=== PATIENT | female | born 1985 | race Caucasian/White ===

== ENCOUNTER 2016-11-14 22:33 | Emergency (ER) | payer OTHER ==
[~2016-11-14] VITALS: Ht 162.6 cm; Wt 84.6 kg
[2016-11-14 22:35] VITALS: TEMP 36.7; Ht 162.6 cm; Wt 84.6 kg
[2016-11-14] MEDS ORDERED: KETOROLAC TROMETHAMINE 30 MG/ML VIAL IV STA (23:02)
[2016-11-14] MEDS ORDERED: ONDANSETRON INJ 2 MG/ML 2 ML VIAL IV STA (23:02)
[2016-11-14] MEDS ORDERED: SODIUM CHLORIDE 0.9% 1000ML 500 ML IV STA (23:02)
[2016-11-14 23:13] LABS: BASO % 0.2 %; BASO ABS # 0.03 K/uL (0-0.2); COMPLETE YES; EOS % 2.3 %; HEMATOCRIT 37.6 % (37-47); IG% 0.2 %; LYMPH % 28.8 %; LYMPH ABS # 3.66 K/uL (1.2-3.4); MEAN CELL VOLUME 94.7 fL (80-100); MEAN CORPUSCULAR HGB CONC 32.7 g/dl (32-36); MEAN PLATELET VOLUME 9.9 fL (7.4-10.4); NEUT % 61.5 %; PLATELET COUNT 391 K/uL (130-400); RED BLOOD COUNT 3.97 M/uL (4.2-5.4); WHITE BLOOD COUNT 12.71 K/uL (4.8-10.8)
[2016-11-14] MEDS: MoRPHine SULFATE 4 MG/ML 1 ML CARP\\VIAL IV PRN (23:19)
[2016-11-14 23:31] LABS: BUN/CREATININE RATIO 14.8 (10-20); CALCIUM 9.2 mg/dl (8.5-10.1); CREATININE 0.71 mg/dl (0.60-1.20); POTASSIUM 3.9 mmol/L (3.5-5.1)
[2016-11-14 23:33] LABS: URINE APPEARANCE CLEAR (CLEAR); URINE BILIRUBIN NEG (NEG); URINE COLOR YELLOW; URINE NITRITE NEG (NEG); URINE PH 5.5 (4.5-7.5); URINE SPECIFIC GRAVITY 1.015 (1.000-1.030); UROBILINOGEN NEG (NEG); ZZUR CULT IF INDIC CLEAN CATCH NO
[2016-11-14 23:34] LABS: ALB/GLOB RATIO 0.9 (0.9-2); MANUAL MICROSCOPIC REQUIRED? NO; REVIEW REQ? NO
[2016-11-14 23:38] LABS: PREG INTERNAL NEGATIVE QC NEG CLEAR BACKGROUND; PREG INTERNAL POSITIVE QC POS CONTROL LINE
--- NOTE | 2016-11-14 23:41 | EMERGENCY ROOM VISIT NOTE ---
History Report prepared by Yane: Angel Quiroga Under the Supervision of: Dr. Graham Abrams M.D. First contact with patient: 23:00 Chief Complaint: ABDOMINAL PAIN Stated Complaint: LOWER R ABD PAIN, VOMITING Nursing Triage Summary: sharp pain right lower right abd. cramping the last couple days pain became steady today History of Present Illness The patient is a 31 year old female who presents to the Emergency Room with complaints of constant sharp right lower quadrant abdominal pain that began a couple of days ago. She rates her pain a 7/10 with intermittent pinching pain bringing it up to a 9/10. She has a past medical history of ovarian cysts and kidney stones. Over this time, she has been feeling very diaphoretic, fatigued, nauseated, and without much of an appetite. She has been experiencing episodes of vomiting as well. She notes that she is having uncharacteristic vaginal spotting that she describes as brown with red spots. Also, she has some mild flank pain some some burning with urination. She describes her flank pain as what an infection would feel like. She denies any fevers, diarrhea, and hematuria. She has been using a heating bad and Ibuprofen for pain management, with only the heating pad giving her some relief. She denies any fevers or diarrhea. She has had two kidney stone removals in the last three months. She states her symptoms feel very similar to those of an ovarian cyst or a ureteral stone. She notes that she just finished the first week of her control pack , so the vaginal bleeding is very abnormal. She did take a test this morning that was negative. She has had many ureteroscopies, a tonsillectomy, a laparoscopic small bowel obstruction procedure, and a rotator cuff injury. Source of History: patient Onset: a couple of days ago Position: abdomen (RLQ) Symptom Intensity: 7/10 Quality: sharp Timing: constant Modifying Factors (Relieving): heat Associated Symptoms: + diaphoresis, + nausea, + vomiting, + back pain, + urinary symptoms (Burning with urination, without bleeding), + fatigue, No fevers, No diarrhea Review of Systems See HPI for pertinent positives & negatives. A total of 10 systems reviewed and were otherwise negative. Past Medical & Surgical Medical Problems: (1) History of kidney stones (2) History of ovarian cyst Surgical Problems: (1) Hx of tonsillectomy (2) SBO (small bowel obstruction) Family History Patient reports no known family medical history. Social History Smoking Status: Former Smoker Smokeless Tobacco Use: No Drug Use: none Marital Status: single Housing Status: lives alone Occupation Status: student Current/Historical Medications Scheduled Clonazepam (Klonopin), 1 MG PO TID Duloxetine HCl (Cymbalta), 30 MG PO QPM Lamotrigine (Lamictal), 100 MG PO QPM Norethindrone & Eth Estradiol (Necon ), 1 TAB PO DAILY Pramipexole Dihydrochloride (Mirapex), 0.5 MG PO QPM Scheduled PRN Clonidine Hcl (Catapres), 0.2 MG PO DAILY PRN for PRN Allergies Coded Allergies: Metoclopramide (Verified Allergy, Intermediate, panic attacks, 11/14/16) Prochlorperazine (Verified Allergy, Intermediate, panic attack, 11/14/16) Sulfa Antibiotics (Verified Allergy, Intermediate, vomiting, 11/14/16) Physical Exam Vital Signs Date Time Temp Pulse Resp B/P (MAP) Pulse Ox O2 Delivery O2 Flow Rate FiO2 11/15/16 01:15 73 18 123/75 97 Room Air 11/14/16 22:35 36.7 79 18 139/84 98 Room Air Physical Exam GENERAL: Patient is in no acute distress. HEENT: No acute trauma, normocephalic atraumatic, mucous membranes moist, no nasal congestion, no scleral icterus. NECK: No stridor, no adenopathy, no meningismus, trachea is midline. LUNGS: Clear to auscultation bilaterally, no wheeze, no rhonchi, breath sounds equal. HEART: Without murmurs gallops or rubs, regular rate and rhythm. ABDOMEN: Soft, tender in the RLQ and the right pelvis, bowel sounds positive, no hernias, no peritonitis. BACK: Right flank discomfort with percussion. EXTREMITIES: No cyanosis or edema, full range of motion of all the joints without pain or difficulty, no signs for acute trauma. NEUROLOGIC: Oriented x 3, no acute motor or sensory deficits, no focal weakness. SKIN: No rash, no jaundice, no diaphoresis. Medical Decision & Procedures ER Provider Diagnostic Interpretation: Radiology results as stated below per my review and radiologist interpretation: US RENAL: No hydronephrosis. 9 mm cyst right kidney. Evaluation of bladder limited by underdistention and ureteral jets are not visualized. Radiologist: Tony Ramos MD US PELVIC/ENDOVAG: The uterus is normal in size. The endometrium is normal in thickness. Small amount of endocervical fluid. 3.1 x 2.6 x 2.0 cm right adnexal cyst, likely right ovarian cyst with small amount of right ovarian tissue peripherally which demonstrates flow. Left ovary not identified. No free fluid in the pelvis. Radiologist: Tony Ramos MD Laboratory Results 11/14/16 22:50 Red Blood Count 3.97, Mean Corpuscular Volume 94.7, Mean Corpuscular Hemoglobin 31.0, Mean Corpuscular Hemoglobin Concent 32.7, Mean Platelet Volume 9.9, Neutrophils (%) (Auto) 61.5, Lymphocytes (%) (Auto) 28.8, Monocytes (%) (Auto) 7.0, Eosinophils (%) (Auto) 2.3, Basophils (%) (Auto) 0.2, Neutrophils # (Auto) 7.81, Lymphocytes # (Auto) 3.66, Monocytes # (Auto) 0.89, Eosinophils # (Auto) 0.29, Basophils # (Auto) 0.03 11/14/16 22:50 Test 11/14/16 22:50 White Blood Count 12.71 K/uL (4.8-10.8) Red Blood Count 3.97 M/uL (4.2-5.4) Hemoglobin 12.3 g/dL (12.0-16.0) Hematocrit 37.6 % (37-47) Mean Corpuscular Volume 94.7 fL (80-100) Mean Corpuscular Hemoglobin 31.0 pg (25-34) Mean Corpuscular Hemoglobin Concent 32.7 g/dl (32-36) Platelet Count 391 K/uL (130-400) Mean Platelet Volume 9.9 fL (7.4-10.4) Neutrophils (%) (Auto) 61.5 % Lymphocytes (%) (Auto) 28.8 % Monocytes (%) (Auto) 7.0 % Eosinophils (%) (Auto) 2.3 % Basophils (%) (Auto) 0.2 % Neutrophils # (Auto) 7.81 K/uL (1.4-6.5) Lymphocytes # (Auto) 3.66 K/uL (1.2-3.4) Monocytes # (Auto) 0.89 K/uL (0.11-0.59) Eosinophils # (Auto) 0.29 K/uL (0-0.5) Basophils # (Auto) 0.03 K/uL (0-0.2) RDW Standard Deviation 48.0 fL (36.4-46.3) RDW Coefficient of Variation 13.8 % (11.5-14.5) Immature Granulocyte % (Auto) 0.2 % Immature Granulocyte # (Auto) 0.03 K/uL (0.00-0.02) Urine Color YELLOW Urine Appearance CLEAR (CLEAR) Urine pH 5.5 (4.5-7.5) Urine Specific [place] 1.015 (1.000-1.030) Urine Protein NEG (NEG) Urine Glucose (UA) NEG (NEG) Urine Ketones NEG (NEG) Urine Occult Blood NEG (NEG) Urine Nitrite NEG (NEG) Urine Bilirubin NEG (NEG) Urine Urobilinogen NEG (NEG) Urine Leukocyte Esterase NEG (NEG) Anion Gap 10.0 mmol/L (3-11) Est Creatinine Clear Calc Drug Dose 120.9 ml/min Estimated GFR () 131.5 Estimated GFR (Non- 113.5 BUN/Creatinine Ratio 14.8 (10-20) Calcium Level 9.2 mg/dl (8.5-10.1) Total Bilirubin 0.3 mg/dl (0.2-1) Aspartate Amino Transf (AST/SGOT) 12 U/L (15-37) Alanine Aminotransferase (ALT/SGPT) 26 U/L (12-78) Alkaline Phosphatase 88 U/L (45-117) Total Protein 7.7 gm/dl (6.4-8.2) Albumin 3.7 gm/dl (3.4-5.0) Globulin 4.0 gm/dl (2.5-4.0) Albumin/Globulin Ratio 0.9 (0.9-2) Lipase 189 U/L (73-393) Human Chorionic Gonadotropin, Qual NEG (NEG) Laboratory results reviewed by me. Medications Administered Medications (Trade) Dose Ordered Sig/Radha Route Start Time Stop Time Status Last Admin Dose Admin Sodium Chloride 500 ml @ 999 mls/hr Q31M STAT IV 11/14/16 23:02 11/14/16 23:32 DC 11/14/16 23:19 999 MLS/HR Ondansetron HCl (Zofran Inj) 4 mg NOW STAT IV 11/14/16 23:02 11/14/16 23:07 DC 11/14/16 23:19 4 MG Morphine Sulfate (MoRPHine SULFATE INJ) 4 mg Q30M PRN IV 11/14/16 23:15 11/28/16 23:14 11/15/16 01:14 4 MG Ketorolac Tromethamine (Toradol Inj) 30 mg NOW STAT IV 11/14/16 23:02 11/14/16 23:07 DC 11/14/16 23:19 30 MG Diphenhydramine HCl (Benadryl Inj) 50 mg STK-MED ONCE .ROUTE 11/15/16 01:31 11/15/16 01:32 DC 11/15/16 01:32 25 MG Hydromorphone HCl (Dilaudid Inj) 0.5 mg NOW STAT IV 11/15/16 02:18 11/15/16 02:19 DC 11/15/16 02:24 0.5 MG Acetaminophen (Tylenol Tab) 1,000 mg NOW STAT PO 11/15/16 03:01 11/15/16 03:03 DC 11/15/16 03:14 1,000 MG Hydromorphone HCl (Dilaudid Inj) 0.5 mg STK-MED ONCE .ROUTE 11/15/16 03:11 11/15/16 03:12 DC 11/15/16 03:16 0.5 MG ED Course 2300: The patient was evaluated in room A2. A complete history and physical exam was performed. 230: Ordered Toradol Inj 30 mg IV, Zofran Inj 4 mg IV, Sodium Chloride 500 ml @ 999 mls/hr IV 2315: Ordered Morphine Sulfate 4 mg IV 0131: Ordered Benadryl Inj 50 mg .ROUTE 0218: I updated the patient at this time. After reevaluation that patient would like to try something new for pain. 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 Ordered Dilaudid Inj 0.5 mg IV 0301: Ordered Tylenol Tab 1000 mg PO, Dilaudid Inj 0.5 mg IV 0311: Ordered Dilaudid Inj 0.5 mg .ROUTE 0349: Her pain is down to a 5/10. She would like to go home. 0403: Reevaluated the patient. Discussed results and discharge instructions: She verbalized understanding and agreement. The patient is ready for discharge. Medical Decision Differential diagnosis includes but is not limited to ovarian cyst, , ectopic , ureteral stone, UTI, appendicitis, small bowel obstruction, diverticulitis, hernia, and musculoskeletal pain. There is a mild leukocytosis at 12,000, this could be consistent with infection or just her pain and vomiting. No concerning anemia. No significant electrolyte abnormality, kidney failure or hepatitis. There is no pancreatitis. Urinalysis does not show hematuria or infection. testing is negative. Renal ultrasound does not show hydronephrosis. Pelvic ultrasound shows a right-sided ovarian cyst, no signs of ovarian torsion. The patient received IV Toradol, IV saline, IV Zofran and IV morphine. She was given IV Dilaudid for continued pain. She received IV Benadryl for itching. She was given a dose of oral Tylenol. The patient's pain is very likely from her right ovarian cyst. She has had cysts before and has felt similar pain. She states that she has noted some vaginal spotting over the last few days which would fit with the ovarian cyst diagnosis. I discussed the possibility of appendicitis with the patient. She has had numerous CT imaging studies in the past, I would like to avoid a repeat CT if possible. I do think we have a cause found by workup that explains her pain. She was encouraged to return for worsening pain, lack of improvement or fever. She was discharged home. Outpatient OB follow-up was suggested. Medication Reconcilliation Current Medication List: was personally reviewed by me Blood Pressure Screening Patient's blood pressure: Elevated blood pressure Blood pressure disposition: Elevated BP felt to be situational Impression Primary Impression: Right lower quadrant abdominal pain Additional Impression: Ovarian cyst Scribe Attestation The scribe's documentation has been prepared under my direction and personally reviewed by me in its entirety. I confirm that the note above accurately reflects all work, treatment, procedures, and medical decision making performed by me. Departure Information Dispostion Home / Self-Care Referrals No Doctor, Assigned (PCP) Viry Cantu M.D. [facility] Forms Call Back Authorization, HOME CARE DOCUMENTATION FORM, IMPORTANT VISIT INFORMATION Patient Instructions My [facility] Additional Instructions motrin/tylenol for pain rest heat to the area may help return for worsening pain, lack of improvement, vomiting or fever as appendicitis is still a possibility call and set up cereal miller appt for the right ovarian cyst Problem Qualifiers
[2016-11-15] MEDS: MoRPHine SULFATE 4 MG/ML 1 ML CARP\\VIAL IV PRN (01:14)
[2016-11-15] MEDS ORDERED: DiphenhydrAMINE HCL 50 MG/ML VIAL ONE (01:31)
[2016-11-15] MEDS ORDERED: HYDROmorphone INJ 2 MG/ML SYR/VIAL IV STA ×2 (02:18→03:01)
[2016-11-15] MEDS ORDERED: ACETAMINOPHEN 500 MG TAB PO STA (03:01)
[2016-11-15] MEDS ORDERED: HYDROmorphone INJ 0.5 MG/0.5 ML SYR ONE (03:11)
[2016-11-15 04:15] VITALS: BP 131/72; PULSE 64; O2SAT 97
--- NOTE | 2016-11-15 07:14 | DIAGNOSTIC IMAGING REPORT ---
PELVIC COMPLETE NON OB CLINICAL HISTORY: ABDOMINAL PAIN/N/V/D PAIN. NAUSEA. COMPARISON STUDY: None FINDINGS: The uterus measured 7.1 cm. The endometrial stripe measured 4 mm. The right ovary measured 3.5 cm. Normal vascular flow. 3 cm right ovarian cyst.. The left ovary measured not identified due to overlying bowel content. There is no ultrasonographic evidence of ovarian torsion. It should be noted that ovarian torsion can be present with normal Doppler ultrasonographic findings. There was no evidence of pathologic free pelvic fluid. IMPRESSION: 3 cm right ovarian cyst. Otherwise negative study. Poor visibility left ovary due to overlying bowel content The above report was generated using voice recognition software. It may contain grammatical, syntax or spelling errors. Electronically signed by: Santana Mccoy M.D. 11/15/2016 7:12 AM Dictated Date/Time: 11/15/2016 7:11 AM
--- NOTE | 2016-11-15 07:33 | DIAGNOSTIC IMAGING REPORT ---
RENAL ULTRASOUND HISTORY: Right-sided abdominal pain. COMPARISON: None. FINDINGS: Right kidney: 10.9 cm. No hydronephrosis. Normal corticomedullary differentiation and cortical thickness. A 9 mm lower pole parapelvic cyst. Left kidney: 11.9 cm. No hydronephrosis. Normal corticomedullary differentiation and cortical thickness. Bladder: No bladder wall thickening. The bilateral ureteral jets were not identified. IMPRESSION: No hydronephrosis. Electronically signed by: Denver Robles M.D. 11/15/2016 7:32 AM Dictated Date/Time: 11/15/2016 7:31 AM
[2016-11-15] MEDS ORDERED: DICY20TA35 PO (15:56)
[2016-12-10] MEDS ORDERED: PRED10TA PO (10:56)
[2016-12-10] MEDS ORDERED: DULO60CA44 PO (10:56)
[2016-12-10] MEDS ORDERED: TRMCR180 EXT (10:56)
[2016-12-10] MEDS ORDERED: RXC5 PO (10:56)
[2016-12-10] MEDS ORDERED: BND25X PO (10:56)
[2016-12-10] MEDS ORDERED: MRLP17 PO (10:56)
[2016-12-16] MEDS ORDERED: RIZA10TA18 PO (20:05)
[2016-12-27] MEDS ORDERED: AMOX875T PO (06:51)
== END 2016-11-15 04:00 | disposition home or self-care (01) ==
LOC: C.EDB 22:35 → C.EDA 11-15 04:00
DX: R10.31 Right lower quadrant pain (principal); N83.201 Unspecified ovarian cyst, right side; Z87.891 Personal history of nicotine dependence

== ENCOUNTER 2016-11-15 12:24 | Emergency (ER) | payer OTHER ==
[~2016-11-15] VITALS: Ht 162.6 cm; Wt 84.6 kg
[2016-11-15 12:28] VITALS: TEMP 37.1; Ht 162.6 cm; Wt 84.6 kg
[2016-11-15] MEDS ORDERED: HYDROmorphone INJ 1 MG/ML SYR IV STA ×2 (13:05→14:48)
[2016-11-15] MEDS ORDERED: ONDANSETRON INJ 2 MG/ML 2 ML VIAL IV STA (13:05)
[2016-11-15] MEDS ORDERED: KETOROLAC TROMETHAMINE 30 MG/ML VIAL IV STA (13:05)
[2016-11-15] MEDS ORDERED: SODIUM CHLORIDE 0.9% 1000ML 1,000 ML IV STA (13:05)
--- NOTE | 2016-11-15 13:30 | EMERGENCY ROOM VISIT NOTE ---
History Report prepared by Yane: Candy Casas Under the Supervision of: Dr. Efrain Martínez M.D. First contact with patient: 12:56 Chief Complaint: ABDOMINAL PAIN Stated Complaint: INCREASED ABD PAIN, VOMITING-RETURN. FROM LAST PM Nursing Triage Summary: pt states she was seen in ER for ovarian cyst last night. pt was told to come back to ER if pain increased or if patient became nauseated. pt c/o increased pain to right lower abdomen, nausea and vomiting this AM. History of Present Illness The patient is a 31 year old female who presents to the Emergency Room with complaints of right lower abdominal pain. The patient stated that she started having "cramping" and light spotting four days ago. The pain has since intensified but the spotting has subsided. She states that her pain was initially intermittent, but became constant yesterday. The patient also notes that as the pain has worsened it also has started to radiate to her back. She was in the ED yesterday for similar complaints. The patient is also experiencing urinary symptoms, nausea and vomiting and has taken ibuprofen with no relief. She has a history of chronic kidney stones and has had a total of nine kidney stone removal nine surgeries. She also has had a small bowel obstruction 11 months ago from an unknown cause. Source of History: patient Onset: Four days ago Position: abdomen (RLQ) Quality: cramping Timing: constant Associated Symptoms: + nausea, + vomiting, + urinary symptoms Review of Systems See HPI for pertinent positives & negatives. A total of 10 systems reviewed and were otherwise negative. Past Medical & Surgical Medical Problems: (1) History of kidney stones (2) History of ovarian cyst Surgical Problems: (1) Hx of tonsillectomy (2) SBO (small bowel obstruction) Family History Patient reports no known family medical history. No pertinent family history. Social History Smoking Status: Former Smoker Drug Use: none Marital Status: single Housing Status: lives alone Occupation Status: student Current/Historical Medications Scheduled Clonazepam (Klonopin), 1 MG PO TID Dicyclomine Hcl (Bentyl), 20 MG PO QID Doxycycline Monohydrate (Monodox), 100 MG PO BID Duloxetine HCl (Cymbalta), 30 MG PO QPM Lamotrigine (Lamictal), 100 MG PO QPM Norethindrone & Eth Estradiol (Necon ), 1 TAB PO DAILY Pramipexole Dihydrochloride (Mirapex), 0.5 MG PO QPM Scheduled PRN Clonidine Hcl (Catapres), 0.2 MG PO DAILY PRN for PRN Oxycodone/Acetaminophen 5MG/325MG (Percocet 5MG/325MG), 1 TAB PO Q4H PRN for Pain Allergies Coded Allergies: Metoclopramide (Verified Allergy, Intermediate, panic attacks, 11/16/16) Prochlorperazine (Verified Allergy, Intermediate, panic attack, 11/16/16) Sulfa Antibiotics (Verified Allergy, Intermediate, vomiting, 11/16/16) Physical Exam Vital Signs Date Time Temp Pulse Resp B/P (MAP) Pulse Ox O2 Delivery O2 Flow Rate FiO2 11/15/16 16:01 66 18 133/93 96 Room Air 11/15/16 14:54 63 18 133/77 98 Room Air 11/15/16 14:32 73 16 130/82 95 Room Air 11/15/16 14:03 104 11/15/16 13:59 76 20 132/76 97 Room Air 11/15/16 12:28 37.1 86 18 131/95 99 Room Air Physical Exam GENERAL: Patient is a healthy-appearing well-nourished female HEAD: Normocephalic atraumatic EYES: Ocular movements intact pupils equal and react to light OROPHARYNX mucous membranes are moist no exudates present no erythema or edema present NECK: Supple no nuchal rigidity CHEST: Good equal expansion LUNGS: Clear and equal to auscultation CARDIAC: Normal S1 and S2 ABDOMEN: Soft, no guarding. Tender to right lower quadrant. BACK: No CVA tenderness EXTREMITIES: No pain upon palpation normal muscle strength in all groups no clubbing cyanosis or edema NEURO: Patient is following commands and answering questions appropriately. Alert and oriented x3 Cranial Nerves 2-12 grossly intact Medical Decision & Procedures ER Provider Diagnostic Interpretation: CT/US results as stated below per my review and radiologist interpretation: ABD/PELVIS IV CONTRAST ONLY CT DOSE: 558.33 mGy.cm HISTORY: Flank pain Pt c/o RLQ abd pain, known ovarian cyst, kidney stones, [place] TECHNIQUE: Multiaxial CT images of the abdomen and pelvis were performed following the use of intravenous contrast. A dose lowering technique was utilized adhering to the principles of ALARA. COMPARISON STUDY: Pelvic and renal ultrasound same date FINDINGS: The lung bases are clear. The liver, spleen, gallbladder, pancreas, kidneys, and adrenal glands are within normal limits. No bowel wall thickening or obstruction. The pelvic organs are unremarkable. No suspicious lytic or blastic osseous lesions. 3 cm right ovarian cyst. The appendix is normal. Nonobstructive bowel pattern. IMPRESSION: 1. 3 cm right ovarian cyst. 2. Otherwise negative abdomen and pelvis. 3. Normal appendix. The above report was generated using voice recognition software. It may contain grammatical, syntax or spelling errors. Electronically signed by: Santana Mccoy M.D. PELVIC COMPLETE NON OB FINDINGS: The uterus measured 7.2 cm. The endometrial stripe measured 4 mm. The right ovary measured 3.1 cm maximum dimension. Normal vascular flow. 2.9 cm cyst.. The left ovary measured not well seen. There is no ultrasonographic evidence of ovarian torsion. It should be noted that ovarian torsion can be present with normal Doppler ultrasonographic findings. There was no evidence of pathologic free pelvic fluid. IMPRESSION: 1. No change compared to the prior study of the same date. 2. 2.9 cm right ovarian cyst. 3. Normal vascular flow to the right ovary. 4. Poor visibility of the left ovary due to overlying bowel content The above report was generated using voice recognition software. It may contain grammatical, syntax or spelling errors. Electronically signed by: Santana Mccoy M.D. Laboratory Results 11/15/16 12:55 Red Blood Count 3.81, Mean Corpuscular Volume 95.5, Mean Corpuscular Hemoglobin 31.5, Mean Corpuscular Hemoglobin Concent 33.0, Mean Platelet Volume 10.0, Neutrophils (%) (Auto) 55.9, Lymphocytes (%) (Auto) 33.8, Monocytes (%) (Auto) 7.5, Eosinophils (%) (Auto) 2.5, Basophils (%) (Auto) 0.2, Neutrophils # (Auto) 5.10, Lymphocytes # (Auto) 3.08, Monocytes # (Auto) 0.68, Eosinophils # (Auto) 0.23, Basophils # (Auto) 0.02 11/15/16 12:55 Test 11/15/16 12:55 11/15/16 13:20 White Blood Count 9.12 K/uL (4.8-10.8) Red Blood Count 3.81 M/uL (4.2-5.4) Hemoglobin 12.0 g/dL (12.0-16.0) Hematocrit 36.4 % (37-47) Mean Corpuscular Volume 95.5 fL (80-100) Mean Corpuscular Hemoglobin 31.5 pg (25-34) Mean Corpuscular Hemoglobin Concent 33.0 g/dl (32-36) Platelet Count 346 K/uL (130-400) Mean Platelet Volume 10.0 fL (7.4-10.4) Neutrophils (%) (Auto) 55.9 % Lymphocytes (%) (Auto) 33.8 % Monocytes (%) (Auto) 7.5 % Eosinophils (%) (Auto) 2.5 % Basophils (%) (Auto) 0.2 % Neutrophils # (Auto) 5.10 K/uL (1.4-6.5) Lymphocytes # (Auto) 3.08 K/uL (1.2-3.4) Monocytes # (Auto) 0.68 K/uL (0.11-0.59) Eosinophils # (Auto) 0.23 K/uL (0-0.5) Basophils # (Auto) 0.02 K/uL (0-0.2) RDW Standard Deviation 47.4 fL (36.4-46.3) RDW Coefficient of Variation 13.7 % (11.5-14.5) Immature Granulocyte % (Auto) 0.1 % Immature Granulocyte # (Auto) 0.01 K/uL (0.00-0.02) Anion Gap 7.0 mmol/L (3-11) Est Creatinine Clear Calc Drug Dose 105.9 ml/min Estimated GFR () 112.2 Estimated GFR (Non- 96.8 BUN/Creatinine Ratio 14.1 (10-20) Calcium Level 8.7 mg/dl (8.5-10.1) Total Bilirubin 0.2 mg/dl (0.2-1) Direct Bilirubin < 0.1 mg/dl (0-0.2) Aspartate Amino Transf (AST/SGOT) 19 U/L (15-37) Alanine Aminotransferase (ALT/SGPT) 26 U/L (12-78) Alkaline Phosphatase 80 U/L (45-117) Total Protein 7.3 gm/dl (6.4-8.2) Albumin 3.5 gm/dl (3.4-5.0) Lipase 176 U/L (73-393) Urine Color YELLOW Urine Appearance CLEAR (CLEAR) Urine pH 6.5 (4.5-7.5) Urine Specific [place] 1.026 (1.000-1.030) Urine Protein NEG (NEG) Urine Glucose (UA) NEG (NEG) Urine Ketones NEG (NEG) Urine Occult Blood NEG (NEG) Urine Nitrite NEG (NEG) Urine Bilirubin NEG (NEG) Urine Urobilinogen NEG (NEG) Urine Leukocyte Esterase TRACE (NEG) Urine WBC (Auto) 5-10 /hpf (0-5) Urine RBC (Auto) 0-4 /hpf (0-4) Urine Hyaline Casts (Auto) 1-5 /lpf (0-5) Urine Epithelial Cells (Auto) >30 /lpf (0-5) Urine Bacteria (Auto) NEG (NEG) Urine Test NEG (NEG) Labs reviewed by ED physician. Medications Administered Medications (Trade) Dose Ordered Sig/Radha Route Start Time Stop Time Status Last Admin Dose Admin Ketorolac Tromethamine (Toradol Inj) 30 mg NOW STAT IV 11/15/16 13:05 11/15/16 13:08 DC 11/15/16 13:28 30 MG Hydromorphone HCl (Dilaudid Inj) 1 mg NOW STAT IV 11/15/16 13:05 11/15/16 13:08 DC 11/15/16 13:27 1 MG Ondansetron HCl (Zofran Inj) 4 mg NOW STAT IV 11/15/16 13:05 11/15/16 13:08 DC 11/15/16 13:27 4 MG Sodium Chloride 1,000 ml @ 999 mls/hr Q1H1M STAT IV 11/15/16 13:05 11/15/16 14:05 DC 11/15/16 13:05 999 MLS/HR Diphenhydramine HCl (Benadryl Inj) 50 mg NOW STAT IV 11/15/16 13:51 11/15/16 13:52 DC 11/15/16 13:59 50 MG Hydromorphone HCl (Dilaudid Inj) 1 mg NOW STAT IV 11/15/16 14:48 11/15/16 14:49 DC 11/15/16 14:55 1 MG Magnesium Citrate (Citrate Of Magnesia Soln) 296 ml NOW STAT PO 11/15/16 15:53 11/15/16 15:54 DC 11/15/16 16:11 296 ML ED Course 1300: Past medical records reviewed. The patient was evaluated in room A9. A complete history and physical examination was performed. 1305: Sodium Chloride 1000 ml @ 999 mls/hr. Zofran Inj 4 mg IV. Dilaudid Inj 1mg IV. Toradol Inj 30 mg IV. 1520: Upon reexamination the patient is resting comfortably. I discussed results and treatment plan with the patient. She verbalizes agreement and understanding. The patient is ready for discharge. Medical Decision Differential diagnosis: Etiologies such as appendicitis, diverticulitis, PUD, biliary pathology, UTI, pancreatitis, obstruction, mesenteric ischemia, aortic pathology, infections, inflammatory bowel disease, renal colic, as well as others were entertained. This is a 31-year-old female who presents emergency department complaining of right lower quadrant abdominal pain. The patient was seen yesterday in the emergency department and had an ultrasound performed therefore a CAT scan of the abdomen and pelvis was performed here and. An IV was established, the patient given Toradol, Dilaudid, Reglan. Repeat exam revealed no improvement the patient's symptoms. I will note that serial abdominal examinations were performed on the patient in the emergency department and the patient really did not exhibit abdominal tenderness or surgical abdomen. In addition the patient exhibited drug-seeking behavior in emergency department therefore a PD MP search was initiated. The patient was found to have no records of [place] however a multi-state search turned up that the patient has had multiple narcotic prescriptions from multiple providers in [place] over the last month. As the patient is new to this area I'm uncomfortable with prescribing the patient any further narcotics. She was given a prescription for Bentyl. [place] Drug Monitoring Program Search Results: patient reviewed within database, see additional documentation Drug Monitoring Findings: Multiple prescriptions in [place]. Tylenol with Codeine on November 01. 90 Klonozepam on October 25. Tramadol on October 18. Impression Primary Impression: Abdominal pain Scribe Attestation The scribe's documentation has been prepared under my direction and personally reviewed by me in its entirety. I confirm that the note above accurately reflects all work, treatment, procedures, and medical decision making performed by me. Departure Information Dispostion Home / Self-Care Prescriptions Dicyclomine Hcl (BENTYL) 20 Mg Tab 20 MG PO QID for 10 Days, #40 TAB Prov: Efrain Martínez MD 11/15/16 Referrals No Doctor, Assigned (PCP) Forms Call Back Authorization, HOME CARE DOCUMENTATION FORM, IMPORTANT VISIT INFORMATION Patient Instructions Abdominal Pain - [facility], Cysts Ovarian, ED Constipation, My [facility] Additional Instructions Follow up with DR Gómez's office Take 1/2 bottle of Mag Citrate Repeat second half in six hours Clear liquid diet next 48 hours You received narcotic or benzodiazepene medication while in the emergency room today. Do not drive, operate heavy machinery, or drink alcohol under the influence of this medication. Take 600 mg Ibuprofen every 6 hours Take Bentyl for breakthrough pain You have been examined and treated today on an emergency basis only. This is not a substitute for, or an effort to provide, complete comprehensive medical care. It is impossible to recognize and treat all injuries or illnesses in a single emergency department visit. It is therefore important that you follow up closely with your PCP. Call as soon as possible for an appointment. Thank you for your time and consideration. I look forward to speaking with you again soon. Please don't hesitate to call us if you have any questions. Problem Qualifiers Primary Impression: Abdominal pain Abdominal location: right lower quadrant Qualified Codes: R10.31 - Right lower quadrant pain
[2016-11-15 13:31] LABS: BASO % 0.2 %; BASO ABS # 0.02 K/uL (0-0.2); COMPLETE YES; EOS % 2.5 %; HEMATOCRIT 36.4 % (37-47); IG% 0.1 %; LYMPH % 33.8 %; LYMPH ABS # 3.08 K/uL (1.2-3.4); MEAN CELL VOLUME 95.5 fL (80-100); MEAN CORPUSCULAR HEMOGLOBIN 31.5 pg (25-34); MONO % 7.5 %; NEUT % 55.9 %; PLATELET COUNT 346 K/uL (130-400); RED BLOOD COUNT 3.81 M/uL (4.2-5.4); WHITE BLOOD COUNT 9.12 K/uL (4.8-10.8)
[2016-11-15 13:51] LABS: URINE APPEARANCE CLEAR (CLEAR); URINE BILIRUBIN NEG (NEG); URINE COLOR YELLOW; URINE EPITHELIAL CELL AUTO >30 /lpf (0-5); URINE NITRITE NEG (NEG); URINE PH 6.5 (4.5-7.5); URINE SPECIFIC GRAVITY 1.026 (1.000-1.030); UROBILINOGEN NEG (NEG)
[2016-11-15] MEDS ORDERED: DiphenhydrAMINE HCL 50 MG/ML VIAL IV STA (13:51)
[2016-11-15 13:54] LABS: ALKALINE PHOSPHATASE 80 U/L (45-117); ALT/SGPT 26 U/L (12-78); AST/SGOT 19 U/L (15-37); BLOOD UREA NITROGEN 11 mg/dl (7-18); BUN/CREATININE RATIO 14.1 (10-20); CALCIUM 8.7 mg/dl (8.5-10.1); CARBON DIOXIDE 25 mmol/L (21-32); CHLORIDE 107 mmol/L (98-107); CREATININE 0.81 mg/dl (0.60-1.20); GLUCOSE 85 mg/dl (70-99); SODIUM 139 mmol/L (136-145)
[2016-11-15 13:56] LABS: MANUAL MICROSCOPIC REQUIRED? NO; REVIEW REQ? NO
[2016-11-15] MEDS ORDERED: OPTIRAY 320 IV PRN (14:15)
--- NOTE | 2016-11-15 14:35 | DIAGNOSTIC IMAGING REPORT ---
ABD/PELVIS IV CONTRAST ONLY CT DOSE: 558.33 mGy.cm HISTORY: Flank pain Pt c/o RLQ abd pain, known ovarian cyst, kidney stones, [place] TECHNIQUE: Multiaxial CT images of the abdomen and pelvis were performed following the use of intravenous contrast. A dose lowering technique was utilized adhering to the principles of ALARA. COMPARISON STUDY: Pelvic and renal ultrasound same date FINDINGS: The lung bases are clear. The liver, spleen, gallbladder, pancreas, kidneys, and adrenal glands are within normal limits. No bowel wall thickening or obstruction. The pelvic organs are unremarkable. No suspicious lytic or blastic osseous lesions. 3 cm right ovarian cyst. The appendix is normal. Nonobstructive bowel pattern. IMPRESSION: 1. 3 cm right ovarian cyst. 2. Otherwise negative abdomen and pelvis. 3. Normal appendix. The above report was generated using voice recognition software. It may contain grammatical, syntax or spelling errors. Electronically signed by: Santana Mccoy M.D. 11/15/2016 2:34 PM Dictated Date/Time: 11/15/2016 2:30 PM
--- NOTE | 2016-11-15 15:38 | DIAGNOSTIC IMAGING REPORT ---
PELVIC COMPLETE NON OB CLINICAL HISTORY: Assess for Rt ovarian torsion; Rt ovarian cyst PAIN COMPARISON STUDY: 11/15/2016 12:20 AM FINDINGS: The uterus measured 7.2 cm. The endometrial stripe measured 4 mm. The right ovary measured 3.1 cm maximum dimension. Normal vascular flow. 2.9 cm cyst.. The left ovary measured not well seen. There is no ultrasonographic evidence of ovarian torsion. It should be noted that ovarian torsion can be present with normal Doppler ultrasonographic findings. There was no evidence of pathologic free pelvic fluid. IMPRESSION: 1. No change compared to the prior study of the same date. 2. 2.9 cm right ovarian cyst. 3. Normal vascular flow to the right ovary. 4. Poor visibility of the left ovary due to overlying bowel content The above report was generated using voice recognition software. It may contain grammatical, syntax or spelling errors. Electronically signed by: Santana Mccoy M.D. 11/15/2016 3:36 PM Dictated Date/Time: 11/15/2016 3:34 PM
[2016-11-15] MEDS ORDERED: MAGNESIUM CITRATE 296 ML/BTL PO STA (15:53)
[2016-11-15] MEDS ORDERED: DICY20TA35 PO (15:56)
[2016-11-15 16:01] VITALS: BP 133/93; PULSE 66; O2SAT 96
[2016-12-10] MEDS ORDERED: BND25X PO (10:56)
[2016-12-10] MEDS ORDERED: TRMCR180 EXT (10:56)
[2016-12-10] MEDS ORDERED: RXC5 PO (10:56)
[2016-12-10] MEDS ORDERED: DULO60CA44 PO (10:56)
[2016-12-10] MEDS ORDERED: PRED10TA PO (10:56)
[2016-12-10] MEDS ORDERED: MRLP17 PO (10:56)
[2016-12-16] MEDS ORDERED: RIZA10TA18 PO (20:05)
[2016-12-27] MEDS ORDERED: AMOX875T PO (06:51)
== END 2016-11-15 16:15 | disposition home or self-care (01) ==
LOC: C.EDB 12:26 → C.EDA 16:15
DX: R10.31 Right lower quadrant pain (principal); Z87.442 Personal history of urinary calculi; Z87.891 Personal history of nicotine dependence; Z79.899 Other long term (current) drug therapy

== ENCOUNTER 2016-11-16 20:09 | Emergency (ER) | payer OTHER ==
[~2016-11-16] VITALS: Ht 162.6 cm; Wt 84.1 kg
[~2016-11-16 20:09] MED LIST: DICY20TA35 PO
[2016-11-16 20:23] VITALS: TEMP 37; Ht 162.6 cm; Wt 84.1 kg
[2016-11-16] MEDS ORDERED: FENTANYL CITRATE INJ 50 MCG/1 ML 2 ML VIAL IV STA (21:25)
[2016-11-16] MEDS ORDERED: SODIUM CHLORIDE 0.9% 1000ML 1,000 ML IV STA ×2 (21:25→22:53)
[2016-11-16] MEDS ORDERED: ACETAMINOPHEN 500 MG TAB PO STA (21:25)
[2016-11-16] MEDS ORDERED: DiphenhydrAMINE HCL 50 MG/ML VIAL IV STA (21:25)
[2016-11-16] MEDS ORDERED: KETOROLAC TROMETHAMINE 30 MG/ML VIAL IV STA (21:25)
--- NOTE | 2016-11-16 21:25 | EMERGENCY ROOM VISIT NOTE ---
History Report prepared by Yane: John Aleman Under the Supervision of: Dr. Nicole Will D.O. First contact with patient: 21:01 Chief Complaint: PELVIC PAIN Stated Complaint: OVARIAN CYST, PELVIC PAIN,VOMITING History of Present Illness The patient is a 31 year old female who presents to the Emergency Room with complaints of worsening right sided pelvic pain that started 6 days ago. She says that the pain started with some dark brown spotting, and she decided to come here to be seen. The patient was told to come back if the pain worsened, so she came in yesterday again, and had a CT and US done, and a cyst on her right ovary was revealed. The patient says that she had constant vomiting yesterday, and the doctor told the patient that she was constipated. The patient states that she took magnesium citrate last night, and had diarrhea all night long. She notes that the pain is still worsening, and the pain radiates into the right side of her back. She was unable to get medications filled due to financial constraints. She says that she can barely walk, and eating and breathing hurts. The patient describes the pain as a stabbing. She says that she is still vomiting, and had a temperature as high as 100. The patient says her abdomen has felt bloated. She adds that she has had multiple ovarian cysts in the past, the first one being at the age of 15, which ruptured and felt a lot like her current pain. She says that her discharge is continuing, but is not brown anymore. She has some abnormal stuff in her urine and has been urinating more frequently. The patient says that she has a family history of ovarian cysts, and her mother had a hysterectomy close to her age. The patient notes that she started having a new sexual partner in the last month after being inactive for a long time. She says there was initial pain with intercourse but intercourse has not brought out pelvic pain since then. She denies any changes in her bowel movements. Source of History: patient Onset: 6 days ago Position: pelvis (right) Symptom Intensity: can hardly walk Quality: stabbing Timing: worsening Associated Symptoms: + vomiting, + diarrhea, + urinary symptoms Note: Associated symptoms: Abdomen feels bloated. Denies change in bowel movements. Review of Systems See HPI for pertinent positives & negatives. A total of 10 systems reviewed and were otherwise negative. Past Medical & Surgical Medical Problems: (1) History of kidney stones (2) History of ovarian cyst Surgical Problems: (1) Hx of tonsillectomy (2) SBO (small bowel obstruction) Family History Patient reports no known family medical history. Social History Smoking Status: Never Smoker Drug Use: none Marital Status: single Housing Status: lives alone Occupation Status: student Current/Historical Medications Scheduled Clonazepam (Klonopin), 1 MG PO TID Dicyclomine Hcl (Bentyl), 20 MG PO QID Doxycycline Monohydrate (Monodox), 100 MG PO BID Duloxetine HCl (Cymbalta), 30 MG PO QPM Lamotrigine (Lamictal), 100 MG PO QPM Norethindrone & Eth Estradiol (Necon ), 1 TAB PO DAILY Pramipexole Dihydrochloride (Mirapex), 0.5 MG PO QPM Scheduled PRN Clonidine Hcl (Catapres), 0.2 MG PO DAILY PRN for PRN Oxycodone/Acetaminophen 5MG/325MG (Percocet 5MG/325MG), 1 TAB PO Q4H PRN for Pain Allergies Coded Allergies: Metoclopramide (Verified Allergy, Intermediate, panic attacks, 11/16/16) Prochlorperazine (Verified Allergy, Intermediate, panic attack, 11/16/16) Sulfa Antibiotics (Verified Allergy, Intermediate, vomiting, 11/16/16) Physical Exam Vital Signs Date Time Temp Pulse Resp B/P (MAP) Pulse Ox O2 Delivery O2 Flow Rate FiO2 11/17/16 02:50 86 20 130/87 98 Room Air 11/17/16 01:53 80 18 130/82 97 Room Air 11/16/16 23:00 86 20 134/79 99 Room Air 11/16/16 20:23 37.0 98 20 141/75 99 Room Air Physical Exam GENERAL: tearful, anxious, alert, well nourished, , non-toxic EYE EXAM: normal conjunctiva, PERRL and EOM's grossly intact OROPHARYNX: no exudate, no erythema, lips, buccal mucosa, and tongue normal and mucous membranes are moist NECK: supple, no nuchal rigidity, no adenopathy, non-tender LUNGS: Clear to auscultation. Normal chest wall mechanics HEART: no murmurs, S1 normal and S2 normal ABDOMEN: tender in right lower quadrant, abdomen soft, normo-active bowel sounds , no masses, no rebound or guarding. BACK: Back is symmetrical on inspection and there is no deformity, no midline tenderness, no CVA tenderness. SKIN: no rashes and no bruising UPPER EXTREMITIES: upper extremities are grossly normal. LOWER EXTREMITIES: No pitting edema. NEURO EXAM: Normal sensorium, cranial nerves II-XII grossly intact, normal speech, no gross weakness of arms, no gross weakness of legs. Medical Decision & Procedures ER Provider Diagnostic Interpretation: Ultrasound pelvic/endovaginal: Right intraovarian flow is present. Unchanged 2.8 cm right ovarian cyst. Left ovary not visualized. Trace fluid in the endocervical canal. Normal endometrial thickness, 3 mm. Radiologist: Moises Askew M.D. Laboratory Results 11/16/16 22:00 Test 11/16/16 22:00 11/16/16 23:36 Red Blood Count 4.01 M/uL (4.2-5.4) Mean Corpuscular Volume 95.8 fL (80-100) Mean Corpuscular Hemoglobin 29.7 pg (25-34) Mean Corpuscular Hemoglobin Concent 31.0 g/dl (32-36) RDW Standard Deviation 47.8 fL (36.4-46.3) RDW Coefficient of Variation 13.7 % (11.5-14.5) Mean Platelet Volume 9.9 fL (7.4-10.4) Urine Color YELLOW Urine Appearance CLEAR (CLEAR) Urine pH 7.5 (4.5-7.5) Urine Specific [place] 1.019 (1.000-1.030) Urine Protein NEG (NEG) Urine Glucose (UA) NEG (NEG) Urine Ketones NEG (NEG) Urine Occult Blood NEG (NEG) Urine Nitrite NEG (NEG) Urine Bilirubin NEG (NEG) Urine Urobilinogen NEG (NEG) Urine Leukocyte Esterase TRACE (NEG) Urine WBC (Auto) 1-5 /hpf (0-5) Urine RBC (Auto) 0-4 /hpf (0-4) Urine Hyaline Casts (Auto) 1-5 /lpf (0-5) Urine Epithelial Cells (Auto) 10-20 /lpf (0-5) Urine Bacteria (Auto) NEG (NEG) Date/Time Source Procedure Growth Status 11/17/16 01:29 Vaginal Swab Trichomonas Preparation - Final Complete Laboratory results per my review. Medications Administered Medications (Trade) Dose Ordered Sig/Radha Route Start Time Stop Time Status Last Admin Dose Admin Ketorolac Tromethamine (Toradol Inj) 30 mg NOW STAT IV 11/16/16 21:25 11/16/16 21:29 DC 11/16/16 22:28 30 MG Sodium Chloride 1,000 ml @ 999 mls/hr Q1H1M STAT IV 11/16/16 21:25 11/16/16 22:25 DC 11/16/16 22:29 999 MLS/HR Fentanyl Citrate (Fentanyl Inj) 50 mcg NOW STAT IV 11/16/16 21:25 11/16/16 21:29 DC 11/16/16 21:25 50 MCG Diphenhydramine HCl (Benadryl Inj) 25 mg NOW STAT IV 11/16/16 21:25 11/16/16 21:29 DC 11/16/16 22:28 25 MG Acetaminophen (Tylenol Tab) 1,000 mg NOW STAT PO 11/16/16 21:25 11/16/16 21:29 DC 11/16/16 22:29 1,000 MG Ondansetron HCl (Zofran 8mg Iv) 8 mg NOW STAT IV 11/16/16 22:17 11/16/16 22:18 DC 11/16/16 22:29 8 MG Sodium Chloride 1,000 ml @ 999 mls/hr Q1H1M STAT IV 11/16/16 22:53 11/16/16 23:53 DC 11/16/16 23:58 999 MLS/HR Hydromorphone HCl (Dilaudid Inj) 0.5 mg NOW STAT IV 11/16/16 23:50 11/16/16 23:51 DC 11/16/16 23:59 0.5 MG Ceftriaxone Sodium (Rocephin Im) 250 mg NOW STAT IM 11/17/16 01:29 11/17/16 01:33 DC 11/17/16 01:29 250 MG Doxycycline Hyclate (Vibramycin Cap) 100 mg NOW STAT PO 11/17/16 01:29 11/17/16 01:33 DC 11/17/16 01:38 100 MG Fentanyl Citrate (Fentanyl Inj) 50 mcg NOW ONCE IV 11/17/16 01:30 11/17/16 01:33 DC 11/17/16 01:39 50 MCG Fluconazole (Diflucan Tab) 150 mg NOW ONCE PO 11/17/16 01:45 11/17/16 01:46 DC 11/17/16 02:01 150 MG Oxycodone HCl (Roxicodone Immediate Rel Tab) 5 mg NOW STAT PO 11/17/16 02:02 11/17/16 02:03 DC 11/17/16 02:22 5 MG Diphenhydramine HCl (Benadryl Inj) 25 mg NOW STAT IV 11/17/16 02:24 11/17/16 02:25 DC 11/17/16 02:45 25 MG Hydromorphone HCl (Dilaudid Inj) 1 mg NOW STAT IV 11/17/16 02:37 11/17/16 02:38 DC 11/17/16 02:45 1 MG ED Course 2211: The patient was evaluated in room C11B. A complete history and physical exam was performed. 2125: Ordered Tylenol Tab 1000 mg PO, Benadryl Inj 25 mg IV, Fentanyl Inj 50 mcg IV, NSS 1000 ml @ 999 mls/hr IV, Toradol Inj 30 mg IV. 2217: Ordered Zofran 8 mg IV. 2253: Ordered NSS 1000 ml @ 999 mls/hr IV. 2258: I reevaluated the patient and her pain is getting worse. I will order a US. 2350: Ordered Dilaudid Inj 0.5 mg IV. 0135: Pelvic exam performed at bedside, patient with normal external genitalia, scattered small white clumpy discharge noted in the vaginal vault, evidence of mild cervicitis, no CMT or adnexal tenderness. No obvious discharge from the cervical os. No blood seen. Patient notes increased pain since pelvic ultrasound. 0240: Patient states slight nausea but did tolerate by mouth at bedside, states still having lower abdominal pain. Discussed with patient likely diagnosis of PID, usual treatment course, need for antibiotics and close follow-up. We'll try additional pain control in the patient. If pain can be controlled patient comfortable going home, will give patient medications to cover her over the weekend until she can fill her prescription next week. Asked case management to see the patient to discuss financial constraints and follow-up as an outpatient also. Discussed with patient she needs close follow-up with GLOBAL SAFETY OFFICER as a precaution. Ultrasound unchanged compared to prior. Given no evolving leukocytosis or fever, doubt evolving inflammatory infectious etiology including appendicitis, diverticulitis, colitis, inflammatory bowel disease, bowel obstruction, perforation, no evidence for UTI, and presentation not consistent with renal stone which patient has had previously. Did not feel patient warranted repeat CAT scan given she had one 48 hours ago. Medical Decision Differential diagnosis: Etiologies such as appendicitis, diverticulitis, PUD, biliary pathology, UTI, pancreatitis, obstruction, mesenteric ischemia, aortic pathology, infections, inflammatory bowel disease, renal colic, as well as others were entertained. Pt complained of persistent pain which seemed to escalate once patient aware I was in the room. Repeat CBC reassuring, no evidence for evolving infection. UA without evidence of infection. Repeat US unchanged. Did not feel pt warranted repeat CT given negative eval 2 days ago. Pt had not yet had a pelvic exam. On my exam, pt with evidence of mild cervicitis. Given new sexual partner recently, cultures sent for possible STD. Given possible exposure with pain, covered for PID. 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 Discussed need for close f/u with senior electrical estimator. Seen by case mgmt to help address concerns about finances and f/u also. No evidence for bacteremia/sepsis. No evidence of TOA or torsion. Doubt additional GI or pathology, no evidence of related complication. VS stable throughout. Discussed with pt sx to watch/return for, she verbalized understanding and was agreeable with plan. [place] Drug Monitoring Program Search Results: patient reviewed within database Drug Monitoring Findings: Patient not found on PDMP. Medication Reconcilliation Current Medication List: was personally reviewed by me Blood Pressure Screening Patient's blood pressure: Elevated blood pressure Blood pressure disposition: Elevated BP felt to be situational Impression Primary Impression: Abdominal pain Additional Impressions: Ovarian cyst PID (acute pelvic inflammatory disease) Scribe Attestation The scribe's documentation has been prepared under my direction and personally reviewed by me in its entirety. I confirm that the note above accurately reflects all work, treatment, procedures, and medical decision making performed by me. Departure Information Dispostion Home / Self-Care Prescriptions Oxycodone/Acetaminophen 5MG/325MG (PERCOCET 5MG/325MG) Tab 1 TAB PO Q4H Y for Pain, #10 TAB Prov: Nicole Will, DO 11/17/16 Doxycycline Monohydrate (Monodox) 100 Mg Cap 100 MG PO BID for 14 Days, #28 CAP Prov: Nicole Will, DO 11/17/16 Referrals No Doctor, Assigned (PCP) Patient Instructions My [facility] Additional Instructions Please take the antibiotic daily as prescribed. Please consider using a probiotic while you're taking the antibiotic. He may use the pain medication as prescribed. Do not take it and drive. Please monitor for constipation as this is a common side effect of strong pain medication. You may also use ibuprofen to help additionally for your pain. If you develop any worsening pain , develop recurrent abnormal discharge, develop fevers or chills, nausea or vomiting, or have any other new concerns, please return to the ER immediately. Please note that the antibiotic commonly makes people light-sensitive, so avoid any prolonged or intense sun exposure, also monitor for GI side effects which are common with this antibiotic also. Problem Qualifiers Primary Impression: Abdominal pain Abdominal location: right lower quadrant Qualified Codes: R10.31 - Right lower quadrant pain Additional Impressions: Ovarian cyst Laterality: right Qualified Codes: N83.201 - Unspecified ovarian cyst, right side
[2016-11-16 22:16] LABS: HEMATOCRIT 38.4 % (37-47); MEAN CELL VOLUME 95.8 fL (80-100); MEAN CORPUSCULAR HEMOGLOBIN 29.7 pg (25-34); MEAN PLATELET VOLUME 9.9 fL (7.4-10.4); PLATELET COUNT 374 K/uL (130-400); RED BLOOD COUNT 4.01 M/uL (4.2-5.4); WHITE BLOOD COUNT 9.11 K/uL (4.8-10.8)
[2016-11-16] MEDS ORDERED: ONDANSETRON 8 MG/54 ML D5W IV STA (22:17)
[2016-11-16] MEDS ORDERED: HYDROmorphone INJ 0.5 MG/0.5 ML SYR IV STA (23:50)
[2016-11-17 00:17] LABS: URINE APPEARANCE CLEAR (CLEAR); URINE BILIRUBIN NEG (NEG); URINE COLOR YELLOW; URINE NITRITE NEG (NEG); URINE PH 7.5 (4.5-7.5); URINE SPECIFIC GRAVITY 1.019 (1.000-1.030); UROBILINOGEN NEG (NEG); ZZUR CULT IF INDIC CLEAN CATCH NO
[2016-11-17 00:20] LABS: MANUAL MICROSCOPIC REQUIRED? NO; REVIEW REQ? NO
[2016-11-17] MEDS ORDERED: ACETAMINOPHEN 500 MG TAB PO STA (01:29)
[2016-11-17] MEDS ORDERED: CEFTRIAXONE SOD 350MG/ML 1 GM VIAL IM STA (01:29)
[2016-11-17] MEDS ORDERED: DOXYCYCLINE HYCLATE 100 MG CAP PO STA ×2 (01:29→02:39)
[2016-11-17] MEDS ORDERED: FENTANYL CITRATE INJ 50 MCG/1 ML 2 ML VIAL IV ONE (01:30)
[2016-11-17] MEDS ORDERED: FLUCONAZOLE 50 MG TAB PO ONE (01:45)
[2016-11-17] MEDS ORDERED: OXYCODONE HCL IR 5 MG TAB (IMMEDIATE RELEASE) PO STA (02:02)
[2016-11-17] MEDS ORDERED: DiphenhydrAMINE HCL 50 MG/ML VIAL IV STA (02:24)
[2016-11-17] MEDS ORDERED: HYDROmorphone INJ 1 MG/ML SYR IV STA (02:37)
[2016-11-17] MEDS ORDERED: DOXY100C76 PO (02:43)
[2016-11-17] MEDS ORDERED: OXYC-57 PO (02:43)
[2016-11-17] MEDS ORDERED: PERCOCET HOME PACK PO ONE (02:45)
[2016-11-17 02:50] VITALS: BP 130/87; PULSE 86; O2SAT 98
[2016-11-17] MEDS ORDERED: EMPTY 8 DRAM VIAL ONE (03:15)
--- NOTE | 2016-11-17 06:41 | DIAGNOSTIC IMAGING REPORT ---
EXAMINATION: PELVIC ULTRASOUND (transabdominal and endovaginal scanning) CLINICAL HISTORY: pelvic pain COMPARISON STUDY: 11/15/2016 FINDINGS: The uterus measured 6.9 x 2.9 x 3.7 cm. The endometrial stripe measured 3 mm. There is fluid present within the lower uterine segment/cervix.. The right ovary measured 29 x 32 x 21 mm. There is a 28 mm right ovarian cyst, likely functional The left ovary was nonvisualized There is no ultrasonographic evidence of ovarian torsion. It should be noted that ovarian torsion can be present with normal Doppler ultrasonographic findings. There is trace free fluid within the right adnexa IMPRESSION: 1. No change when compared the preceding study 2. 28 mm right ovarian cyst likely functional 3. Nonvisualization left ovary. 4. Minimal fluid within the lower uterine segment/endocervical canal. Electronically signed by: Guy Bañuelos M.D. 11/17/2016 6:39 AM Dictated Date/Time: 11/17/2016 6:37 AM
[2016-12-10] MEDS ORDERED: PRED10TA PO (10:56)
[2016-12-10] MEDS ORDERED: BND25X PO (10:56)
[2016-12-10] MEDS ORDERED: MRLP17 PO (10:56)
[2016-12-10] MEDS ORDERED: DULO60CA44 PO (10:56)
[2016-12-10] MEDS ORDERED: RXC5 PO (10:56)
[2016-12-10] MEDS ORDERED: TRMCR180 EXT (10:56)
[2016-12-16] MEDS ORDERED: RIZA10TA18 PO (20:05)
[2016-12-27] MEDS ORDERED: AMOX875T PO (06:51)
== END 2016-11-17 03:25 | disposition home or self-care (01) ==
LOC: C.EDB 20:10 → C.EDA 11-17 03:25
DX: N73.9 Female pelvic inflammatory disease, unspecified (principal); N83.201 Unspecified ovarian cyst, right side; R10.9 Unspecified abdominal pain; K58.9 Irritable bowel syndrome, unspecified; Z87.442 Personal history of urinary calculi; Z98.890 Other specified postprocedural states; Z79.899 Other long term (current) drug therapy; Z88.2 Allergy status to sulfonamides; Z88.8 Allergy status to other drugs, medicaments and biological substances

== ENCOUNTER 2016-11-18 19:47 | Emergency (ER) | payer OTHER ==
[~2016-11-18] VITALS: Ht 162.6 cm; Wt 83.7 kg
[~2016-11-18 19:47] MED LIST changes: +DOXY100C76 PO; +OXYC-57 PO
[2016-11-18 20:00] VITALS: TEMP 36.8; Ht 162.6 cm; Wt 83.7 kg
[2016-11-18] MEDS ORDERED: KETOROLAC TROMETHAMINE 30 MG/ML VIAL IV STA (21:03)
--- NOTE | 2016-11-18 21:15 | EMERGENCY ROOM VISIT NOTE ---
History Report prepared by Yane: Susie Cuadra Under the Supervision of: Dr. Oleksandr Madden M.D. First contact with patient: 20:31 Chief Complaint: VAGINAL DISCHARGE Stated Complaint: PELVIC PAIN,VAGINAL DISCHARGE, CYST ON OVARY History of Present Illness The patient is a 31 year old female who presents to the Emergency Room with complaints of worsening vaginal discharge starting today. The patient states that she was here a few days ago and was given medicine to help with her PID and her cyst on her ovary. The patient states that the pain she has is constant and has moved from her cyst into her pelvis as well. She states that she noticed a change in her discharge. She reports that it is chunky, green and yellow with some white in it. She complains of nausea, vomiting, diaphoresis, and burning with urination. The patient currently rates her pain as an 8/10 in severity. She notes that she came to the ED today because she is afraid she is not responding to the medicine due to the changes in her discharge. The patient denies the chance of , fevers, chills, and following up with [facility]. She states she made an appointment at a [facility] clinic in five days. She notes that she had PID a few months ago. Source of History: patient Onset: today Position: other (global) Symptom Intensity: 8/10 Quality: other (global) Timing: worsening Associated Symptoms: + diaphoresis, + nausea, + vomiting, + urinary symptoms , No fevers, No chills Note: The patient denies the chance of and following up with [facility]. Review of Systems See HPI for pertinent positives and negatives. A total of ten systems were reviewed and were otherwise negative. Past Medical & Surgical Medical Problems: (1) History of kidney stones (2) History of ovarian cyst (3) PID (pelvic inflammatory disease) Surgical Problems: (1) Hx of tonsillectomy (2) SBO (small bowel obstruction) Family History Patient reports no known family medical history. Social History Smoking Status: Never Smoker Drug Use: none Marital Status: single Housing Status: lives alone Occupation Status: student Current/Historical Medications Scheduled Clonazepam (Klonopin), 1 MG PO TID Dicyclomine Hcl (Bentyl), 20 MG PO QID Doxycycline Monohydrate (Monodox), 100 MG PO BID Duloxetine HCl (Cymbalta), 30 MG PO QPM Fluconazole (Diflucan), 150 MG PO DAILY Lamotrigine (Lamictal), 100 MG PO QPM Metronidazole (Flagyl), 500 MG PO BID Norethindrone & Eth Estradiol (Necon ), 1 TAB PO DAILY Pramipexole Dihydrochloride (Mirapex), 0.5 MG PO QPM Scheduled PRN Clonidine Hcl (Catapres), 0.2 MG PO DAILY PRN for PRN Oxycodone/Acetaminophen 5MG/325MG (Percocet 5MG/325MG), 1 TAB PO Q4H PRN for Pain Allergies Coded Allergies: Metoclopramide (Verified Allergy, Intermediate, panic attacks, 11/16/16) Prochlorperazine (Verified Allergy, Intermediate, panic attack, 11/16/16) Sulfa Antibiotics (Verified Allergy, Intermediate, vomiting, 11/16/16) Physical Exam Vital Signs Date Time Temp Pulse Resp B/P (MAP) Pulse Ox O2 Delivery O2 Flow Rate FiO2 11/19/16 00:20 82 19 99 11/18/16 22:24 63 18 144/86 98 Room Air 11/18/16 20:00 36.8 81 19 147/95 100 Room Air Physical Exam GENERAL: Awake, alert, well-appearing, in no distress HENT: Normocephalic, atraumatic. Dry mucus membranes. EYES: Normal conjunctiva. Sclera non-icteric. NECK: Supple. No nuchal rigidity. FROM. No JVD. RESPIRATORY: Clear to auscultation. CARDIAC: Regular rate, normal rhythm. Extremities warm and well perfused. Pulses equal. ABDOMEN: Soft, non-distended. Diffuse abdominal pain, distractible. No rebound or guarding. No masses. RECTAL: Deferred. MUSCULOSKELETAL: Chest examination reveals no tenderness. The back is symmetrical on inspection without obvious abnormality. There is bilateral CVA tenderness to palpation, also distractible. No joint edema. LOWER EXTREMITIES: Calves are equal size bilaterally and non-tender. No edema. No discoloration. NEURO: Normal sensorium. No sensory or motor deficits noted. SKIN: No rash or jaundice noted. Medical Decision & Procedures ER Provider Diagnostic Interpretation: Radiology results as stated below per my review and radiologist interpretation: US PELVIC/ ENDOVAG: Uterus is normal in size. Endometrium is normal in thickness. 2.4 cm right ovarian cyst. Left ovary is not visualized. Trace fluid in the pelvis. Radiologist: Sage Gregg M.D. Study ready at 23:21 and initial results transmitted at 23:22. Laboratory Results 11/18/16 21:42 Red Blood Count 4.11, Mean Corpuscular Volume 95.4, Mean Corpuscular Hemoglobin 30.4, Mean Corpuscular Hemoglobin Concent 31.9, Mean Platelet Volume 9.7, Neutrophils (%) (Auto) 65.1, Lymphocytes (%) (Auto) 26.6, Monocytes (%) (Auto) 6.3, Eosinophils (%) (Auto) 1.7, Basophils (%) (Auto) 0.2, Neutrophils # (Auto) 5.91, Lymphocytes # (Auto) 2.41, Monocytes # (Auto) 0.57, Eosinophils # (Auto) 0.15, Basophils # (Auto) 0.02 11/18/16 21:42 Test 11/18/16 20:21 11/18/16 21:42 11/18/16 23:55 Urine Color DK YELLOW Urine Appearance CLEAR (CLEAR) Urine pH 7.5 (4.5-7.5) Urine Specific [place] 1.021 (1.000-1.030) Urine Protein NEG (NEG) Urine Glucose (UA) NEG (NEG) Urine Ketones 1+ (NEG) Urine Occult Blood NEG (NEG) Urine Nitrite NEG (NEG) Urine Bilirubin NEG (NEG) Urine Urobilinogen NEG (NEG) Urine Leukocyte Esterase NEG (NEG) Urine Test NEG (NEG) White Blood Count 9.07 K/uL (4.8-10.8) Red Blood Count 4.11 M/uL (4.2-5.4) Hemoglobin 12.5 g/dL (12.0-16.0) Hematocrit 39.2 % (37-47) Mean Corpuscular Volume 95.4 fL (80-100) Mean Corpuscular Hemoglobin 30.4 pg (25-34) Mean Corpuscular Hemoglobin Concent 31.9 g/dl (32-36) Platelet Count 401 K/uL (130-400) Mean Platelet Volume 9.7 fL (7.4-10.4) Neutrophils (%) (Auto) 65.1 % Lymphocytes (%) (Auto) 26.6 % Monocytes (%) (Auto) 6.3 % Eosinophils (%) (Auto) 1.7 % Basophils (%) (Auto) 0.2 % Neutrophils # (Auto) 5.91 K/uL (1.4-6.5) Lymphocytes # (Auto) 2.41 K/uL (1.2-3.4) Monocytes # (Auto) 0.57 K/uL (0.11-0.59) Eosinophils # (Auto) 0.15 K/uL (0-0.5) Basophils # (Auto) 0.02 K/uL (0-0.2) RDW Standard Deviation 47.3 fL (36.4-46.3) RDW Coefficient of Variation 13.5 % (11.5-14.5) Immature Granulocyte % (Auto) 0.1 % Immature Granulocyte # (Auto) 0.01 K/uL (0.00-0.02) Anion Gap 7.0 mmol/L (3-11) Est Creatinine Clear Calc Drug Dose 108.0 ml/min Estimated GFR () 115.6 Estimated GFR (Non- 99.8 BUN/Creatinine Ratio 13.2 (10-20) Calcium Level 9.4 mg/dl (8.5-10.1) Total Bilirubin 0.4 mg/dl (0.2-1) Direct Bilirubin < 0.1 mg/dl (0-0.2) Aspartate Amino Transf (AST/SGOT) 35 U/L (15-37) Alanine Aminotransferase (ALT/SGPT) 38 U/L (12-78) Alkaline Phosphatase 86 U/L (45-117) Total Protein 8.0 gm/dl (6.4-8.2) Albumin 3.7 gm/dl (3.4-5.0) Lipase 154 U/L (73-393) Laboratory results reviewed by me Medications Administered Medications (Trade) Dose Ordered Sig/Radha Route Start Time Stop Time Status Last Admin Dose Admin Ketorolac Tromethamine (Toradol Inj) 30 mg NOW STAT IV 11/18/16 21:03 11/18/16 21:06 DC 11/18/16 21:43 30 MG Ondansetron HCl (Zofran Inj) 4 mg NOW STAT IV 11/18/16 22:11 11/18/16 22:12 DC 11/18/16 22:11 4 MG Fentanyl Citrate (Fentanyl Inj) 50 mcg NOW STAT IV 11/18/16 23:41 11/18/16 23:43 DC 11/18/16 23:49 50 MCG Fluconazole (Diflucan Tab) 150 mg NOW STAT PO 11/19/16 00:05 11/19/16 00:08 DC 11/19/16 00:22 150 MG Metronidazole (Flagyl Tab) 500 mg NOW STAT PO 11/19/16 00:05 11/19/16 00:08 DC 11/19/16 00:23 500 MG Procedure PELVIC EXAM: External genitalia unremarkable. Internal mucosa friable both in vaginal canal and cervix. Has thick white cheesy discharge. Otherwise mild cervical discomfort but no gross CMT. ED Course 2056: The patient was evaluated in room C11B. A complete history and physical exam was performed. 2102: Ordered Toradol Inj 30 mg IV. 2210: Ordered Zofran Inj 4 mg IV. 3: I reevaluated the patient. Discussed results and discharge instructions: She verbalized understanding and agreement. The patient is ready for discharge. 2341: Ordered Fentanyl Inj 50 mcg IV. 0005: Ordered Flagyl Tab 500 mg PO, Diflucan Tab 150 mg PO. Medical Decision I reviewed the patient's past medical history, medications, and the nursing notes as described above. Differential diagnoses include PID, TOA, UTI, renal stone, appendicitis, diverticulitis, IBS. Patient is a 31-year-old woman with a past medical history of PID and recent ED visit with diagnosis of PID treated with ceftriaxone and doxycycline presents to the emergency department with worsening vaginal pain and discharge per history of present illness. On arrival the patient appears uncomfortable but in no acute distress. Afebrile with stable vital signs. Labs unremarkable including WBC within normal limits. TVUS also unchanged from recent. Pelvic exam showing friable vaginal and cervical mucosa with thick white cheese-like discharge consistent with Margie. However considering the patient's multiple visits and previous diagnosis of PIID will add metronidazole as well for possible superimposed infection. Considering, the patient's normal wbcs in the setting of long-standing symptoms and a recent CT scan I do not believe any further imaging is indicated at this time. Patient is currently still on her doxycycline. Findings and plan for Fluconazole and Flagyl as well as follow-up with [facility] d/w patient. Per patient her insurance is in process and should become available this week. Patient agreeable and d/c'd per discharge instructions. Impression Primary Impression: Vaginitis Additional Impression: Cervicitis Scribe Attestation The scribe's documentation has been prepared under my direction and personally reviewed by me in its entirety. I confirm that the note above accurately reflects all work, treatment, procedures, and medical decision making performed by me. Departure Information Dispostion Home / Self-Care Prescriptions Metronidazole (Flagyl) 500 Mg Tab 500 MG PO BID for 14 Days, #28 TAB Prov: Oleksandr Madden M.D. 11/19/16 Fluconazole (DIFLUCAN) 150 Mg Tab 150 MG PO DAILY for 1 Day, #1 TAB Prov: Oleksandr Madden M.D. 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 Otherwise, your exam, lab results, an ultrasound did not show signs of an emergent condition at this time. If your symptoms do not improve in 72 hours take an additional dose of fluconazole as prescribed. Take metronidazole as prescribed. Continue your doxycycline as previously prescribed. Acetaminophen or ibuprofen as needed for pain. Return to the emergency department for worsening symptoms as described in the accompanying instructions. Problem Qualifiers
[2016-11-18 21:52] LABS: URINE APPEARANCE CLEAR (CLEAR); URINE BILIRUBIN NEG (NEG); URINE COLOR DK YELLOW; URINE NITRITE NEG (NEG); URINE PH 7.5 (4.5-7.5); URINE SPECIFIC GRAVITY 1.021 (1.000-1.030); UROBILINOGEN NEG (NEG); ZZUR CULT IF INDIC CLEAN CATCH NO
[2016-11-18 21:54] LABS: MANUAL MICROSCOPIC REQUIRED? NO; REVIEW REQ? NO
[2016-11-18 21:56] LABS: BASO % 0.2 %; BASO ABS # 0.02 K/uL (0-0.2); COMPLETE YES; EOS % 1.7 %; HEMATOCRIT 39.2 % (37-47); IG% 0.1 %; LYMPH % 26.6 %; LYMPH ABS # 2.41 K/uL (1.2-3.4); MEAN CELL VOLUME 95.4 fL (80-100); MEAN CORPUSCULAR HEMOGLOBIN 30.4 pg (25-34); MEAN CORPUSCULAR HGB CONC 31.9 g/dl (32-36); MEAN PLATELET VOLUME 9.7 fL (7.4-10.4); MONO % 6.3 %; NEUT % 65.1 %; PLATELET COUNT 401 K/uL (130-400); RED BLOOD COUNT 4.11 M/uL (4.2-5.4); WHITE BLOOD COUNT 9.07 K/uL (4.8-10.8)
[2016-11-18] MEDS ORDERED: ONDANSETRON INJ 2 MG/ML 2 ML VIAL IV STA (22:11)
[2016-11-18 22:14] LABS: ALT/SGPT 38 U/L (12-78); BLOOD UREA NITROGEN 10 mg/dl (7-18); BUN/CREATININE RATIO 13.2 (10-20); CALCIUM 9.4 mg/dl (8.5-10.1); CARBON DIOXIDE 26 mmol/L (21-32); CHLORIDE 106 mmol/L (98-107); CREATININE 0.79 mg/dl (0.60-1.20); GLUCOSE 82 mg/dl (70-99); SODIUM 139 mmol/L (136-145)
[2016-11-18 22:17] LABS: ALKALINE PHOSPHATASE 86 U/L (45-117); AST/SGOT 35 U/L (15-37)
[2016-11-18 22:24] VITALS: BP 144/86
[2016-11-18] MEDS ORDERED: FENTANYL CITRATE INJ 50 MCG/1 ML 2 ML VIAL IV STA (23:41)
[2016-11-19] MEDS ORDERED: FLUCONAZOLE 50 MG TAB PO STA (00:05)
[2016-11-19] MEDS ORDERED: METRONIDAZOLE 250 MG TAB PO STA (00:05)
[2016-11-19] MEDS ORDERED: FLUC150T PO (00:16)
[2016-11-19] MEDS ORDERED: METR-163 PO (00:16)
[2016-11-19 00:20] VITALS: PULSE 82; O2SAT 99
--- NOTE | 2016-11-19 08:19 | DIAGNOSTIC IMAGING REPORT ---
PELVIC ULTRASOUND, TRANSABDOMINAL AND TRANSVAGINAL HISTORY: pelvic pain, r/o TOA COMPARISON: Pelvic ultrasound 11/17/2016. FINDINGS: Uterus: 6.7 x 3.2 x 3.9 cm. No uterine masses. Minimal amount of fluid within the lower uterine segment/cervical canal. This remains unchanged. Endometrial stripe: 2 mm in thickness. Right ovary: Normal in size and demonstrates normal color flow. A 2.4 cm cyst. This previous measured 2.8 cm. Left ovary: Obscured by overlying bowel gas. Miscellaneous:Trace amount of pelvic free fluid. IMPRESSION: The 2.4 cm right ovarian cyst has slightly decreased in size. Minimal fluid within the lower uterine segment/cervical canal, unchanged. Electronically signed by: Denver Robles M.D. 11/19/2016 8:18 AM Dictated Date/Time: 11/19/2016 8:15 AM
[2016-11-22 02:06] LABS: CHLAMYDIA TRACH RNA*** NOT DETECTED (NOT DETECTED); GC (NEIS GONORRHOEAE)RNA** NOT DETECTED (NOT DETECTED); TRICHOMONAS VAGINALIS RNA** NOT DETECTED (NOT DETECTED)
[2016-12-10] MEDS ORDERED: TRMCR180 EXT (10:56)
[2016-12-10] MEDS ORDERED: RXC5 PO (10:56)
[2016-12-10] MEDS ORDERED: DULO60CA44 PO (10:56)
[2016-12-10] MEDS ORDERED: PRED10TA PO (10:56)
[2016-12-10] MEDS ORDERED: MRLP17 PO (10:56)
[2016-12-10] MEDS ORDERED: BND25X PO (10:56)
[2016-12-16] MEDS ORDERED: RIZA10TA18 PO (20:05)
[2016-12-27] MEDS ORDERED: AMOX875T PO (06:51)
== END 2016-11-19 00:25 | disposition home or self-care (01) ==
LOC: C.EDB 19:49 → C.EDC 11-19 00:25
DX: N76.0 Acute vaginitis (principal); N72 Inflammatory disease of cervix uteri; N73.9 Female pelvic inflammatory disease, unspecified; N83.209 Unspecified ovarian cyst, unspecified side; Z87.442 Personal history of urinary calculi; Z90.89 Acquired absence of other organs

== ENCOUNTER 2016-11-26 19:52 | Emergency (ER) | payer OTHER ==
[~2016-11-26] VITALS: Ht 162.6 cm; Wt 83.1 kg
[~2016-11-26 19:52] MED LIST changes: +METR-163 PO
[2016-11-26 19:58] VITALS: TEMP 36.8; Ht 162.6 cm; Wt 83.1 kg
[2016-11-26] MEDS ORDERED: DiphenhydrAMINE HCL 50 MG/ML VIAL IV STA (21:06)
[2016-11-26] MEDS ORDERED: ACETAMINOPHEN 500 MG TAB PO STA (21:06)
[2016-11-26] MEDS ORDERED: SODIUM CHLORIDE 0.9% 1000ML 1,000 ML IV STA (21:06)
[2016-11-26] MEDS ORDERED: KETOROLAC TROMETHAMINE 30 MG/ML VIAL IV STA (21:06)
[2016-11-26] MEDS ORDERED: PROMETHAZINE HCL INJ 12.5 MG in SODIUM CHLORIDE 0.9% 50ML 50 ML IV STA (21:06)
--- NOTE | 2016-11-26 21:11 | EMERGENCY ROOM VISIT NOTE ---
History Report prepared by Yane: Jennifer Gavin Under the Supervision of: Dr. Graham Abrams M.D. First contact with patient: 20:51 Chief Complaint: HEADACHE Stated Complaint: ACUTE MIGRAINE History of Present Illness The patient is a 31 year old female who presents to the Emergency Room with complaints of a waxing and waning headache beginning at 4am today. The patient has a history of migraine headaches and states that this feels like her typical migraine. It is located on the right side and back of her head. She reports photophobia, blurry vision, and nausea. The patient denies any vomiting. She took a dose of rizatriptan this morning and her symptoms resolved. Her headache returned this evening around 6pm and it has been constant since then. She took a second dose of rizatriptan without any relief of her symptoms. She rates her current pain as a 7/10 in severity. The patient states that she ran out of Cymbalta 3 days ago and thinks that this may have triggered her migraine. She states that prior to today she had not had a migraine in over a month. The patient denies any weakness in her extremities. She is currently on antibiotics for PID and vaginitis and states that she is still having some residual pain. Source of History: patient Onset: 4am today Position: head (right sided) Symptom Intensity: 7/10 Timing: waxes/wanes Modifying Factors (Worsening): other (light) Modifying Factors (Relieving): other (rizatriptan) Associated Symptoms: No vomiting, No weakness Note: Pt notes blurry vision. Review of Systems See HPI for pertinent positives & negatives. A total of 10 systems reviewed and were otherwise negative. Past Medical & Surgical Medical Problems: (1) History of kidney stones (2) History of ovarian cyst (3) PID (pelvic inflammatory disease) Surgical Problems: (1) Hx of tonsillectomy (2) SBO (small bowel obstruction) Family History Patient reports no known family medical history. Social History Smoking Status: Never Smoker Drug Use: none Marital Status: single Housing Status: lives alone Occupation Status: student Current/Historical Medications Scheduled Clonazepam (Klonopin), 1 MG PO TID Doxycycline Monohydrate (Monodox), 100 MG PO BID Duloxetine HCl (Cymbalta), 30 MG PO QPM Duloxetine Hcl (Cymbalta), 30 MG PO DAILY Lamotrigine (Lamictal), 100 MG PO QPM Metronidazole (Flagyl), 500 MG PO BID Norethindrone & Eth Estradiol (Necon ), 1 TAB PO DAILY Pramipexole Dihydrochloride (Mirapex), 0.5 MG PO QPM Scheduled PRN Clonidine Hcl (Catapres), 0.2 MG PO DAILY PRN for PRN Allergies Coded Allergies: Metoclopramide (Verified Allergy, Intermediate, panic attacks, 11/16/16) Prochlorperazine (Verified Allergy, Intermediate, panic attack, 11/16/16) Sulfa Antibiotics (Verified Allergy, Intermediate, vomiting, 11/16/16) Physical Exam Vital Signs Date Time Temp Pulse Resp B/P (MAP) Pulse Ox O2 Delivery O2 Flow Rate FiO2 11/27/16 00:48 74 18 125/83 97 11/26/16 23:59 148/97 11/26/16 23:52 69 98 11/26/16 23:37 64 18 99 11/26/16 23:30 136/85 11/26/16 23:22 68 100 11/26/16 23:22 69 18 151/101 100 Room Air 11/26/16 23:21 151/101 11/26/16 19:58 36.8 84 18 148/89 99 Room Air Physical Exam GENERAL: Patient is in no acute distress. HEENT: No acute trauma, normocephalic atraumatic, mucous membranes moist, no nasal congestion, no scleral icterus. Pupils equal and reactive to light. NECK: No stridor, no adenopathy, no meningismus, trachea is midline. LUNGS: Clear to auscultation bilaterally, no wheeze, no rhonchi, breath sounds equal. HEART: Without murmurs gallops or rubs, regular rate and rhythm. ABDOMEN: Soft, nontender, bowel sounds positive, no hernias, no peritonitis. EXTREMITIES: No cyanosis or edema, full range of motion of all the joints without pain or difficulty, no signs for acute trauma. NEUROLOGIC: Oriented x 3, no acute motor or sensory deficits, no focal weakness. No cerebellar deficits. SKIN: No rash, no jaundice, no diaphoresis. Medical Decision & Procedures Laboratory Results Test 11/26/16 21:45 Urine Test NEG (NEG) Urine dip reveals trace leukocytes, no real evidence for infection. negative. Laboratory results reviewed by me. Medications Administered Medications (Trade) Dose Ordered Sig/Radha Route Start Time Stop Time Status Last Admin Dose Admin Sodium Chloride 1,000 ml @ 999 mls/hr Q1H1M STAT IV 11/26/16 21:06 11/26/16 22:06 DC 11/26/16 22:55 999 MLS/HR Diphenhydramine HCl (Benadryl Inj) 50 mg NOW STAT IV 11/26/16 21:06 11/26/16 21:09 DC 11/26/16 22:53 50 MG Ketorolac Tromethamine (Toradol Inj) 30 mg NOW STAT IV 11/26/16 21:06 11/26/16 21:09 DC 11/26/16 22:45 30 MG Dexamethasone Sodium Phosphate (Decadron Inj) 10 mg NOW ONCE IV 11/26/16 21:15 11/26/16 21:16 DC 11/26/16 22:50 10 MG Acetaminophen (Tylenol Tab) 1,000 mg NOW STAT PO 11/26/16 21:06 11/26/16 21:09 DC 11/26/16 22:00 1,000 MG Promethazine HCl 12.5 mg/Sodium Chloride 50.5 ml @ 204 mls/hr NOW STAT IV 11/26/16 21:06 11/26/16 21:20 DC 11/26/16 22:42 204 MLS/HR Dihydroergotamine Mesylate (D.H.E. 45 Inj) 1 mg NOW ONCE IM 11/26/16 21:15 11/26/16 21:16 DC 11/26/16 22:13 1 MG Lorazepam (Ativan Inj) 0.5 mg NOW STAT IV 11/26/16 23:25 11/26/16 23:26 DC 11/26/16 23:35 0.5 MG Duloxetine HCl (Cymbalta Cap) 30 mg NOW STAT PO 11/26/16 23:53 11/26/16 23:54 DC 11/27/16 00:06 30 MG Morphine Sulfate (MoRPHine SULFATE INJ) 4 mg NOW STAT IV 11/26/16 23:53 11/26/16 23:54 DC 11/27/16 00:07 4 MG ED Course 2056: The patient was evaluated in room B5. A complete history and physical exam was performed. 2105: Promethazine HCl 12.5 mg/Sodium Chloride 50.5 ml @ 204 mls/hr IV, Tylenol 1000 mg PO, Toradol 30 mg IV, Benadryl 50 mg IV, NSS 1000 ml @ 999 mls/hr IV 5: D.H.E. 45 mg IM, Decadron 10 mg IV 5: Lorazepam 0.5 mg IV 234: I reevaluated the patient and she is still having some pain. 2353: Morphine sulfate 4 mg IV, Cymbalta 30 mg PO 0029: I reassessed the patient at this time. She is feeling better and resting comfortably. I discussed the results and treatment plan with the patient. I answered all pertaining questions that she had. She expressed understanding and verbalized agreement. The patient will be discharged home. Medical Decision Differential diagnoses includes migraine headache, dehydration, electrolyte imbalance, meningitis, intracranial bleeding, UTI, stroke. The patient presents with mostly a right-sided headache that she describes as a migraine. She has had previous similar migraines. There has been no head trauma or fever. She has not had one-sided weakness. There is no meningismus. The patient received oral Tylenol, IV Toradol, IV Benadryl, IV Phenergan, IV Decadron and IV saline. She received IM DHE. She eventually required a dose of IV Ativan for a feeling of restless legs. Her headache was improved after this medication regimen, but not gone, she required an additional medication-a small dose of IV morphine was administered. The patient received her typical dose of Cymbalta orally. The patient's headache is very likely migrainous. She is stable for discharge. She will return for worsening symptoms. A prescription for her typical Cymbalta was written. Of note, a urine dip did not show evidence for infection, testing was negative. Medication Reconcilliation Current Medication List: was personally reviewed by me Blood Pressure Screening Patient's blood pressure: Elevated blood pressure Blood pressure disposition: Elevated BP felt to be situational Impression Primary Impression: Headache Scribe Attestation The scribe's documentation has been prepared under my direction and personally reviewed by me in its entirety. I confirm that the note above accurately reflects all work, treatment, procedures, and medical decision making performed by me. Departure Information Dispostion Home / Self-Care Prescriptions Duloxetine Hcl (CYMBALTA) 30 Mg Cap 30 MG PO DAILY for 30 Days, #30 CAP 3 Refills Prov: Graham Abrams M.D. 11/26/16 Referrals No Doctor, Assigned (PCP) Forms HOME CARE DOCUMENTATION FORM, IMPORTANT VISIT INFORMATION Patient Instructions My [facility] Additional Instructions rest sleep fluids restart cymbalta Problem Qualifiers Primary Impression: Headache Headache type: unspecified Headache chronicity pattern: acute headache Intractability: not intractable Qualified Codes: R51 - Headache
[2016-11-26] MEDS ORDERED: DIHYDROERGOTAMINE MESYLATE 1 MG/ML VIAL IM ONE (21:15)
[2016-11-26] MEDS ORDERED: DEXAMETHASONE SOD INJ 10 MG/ML VIAL IV ONE (21:15)
[2016-11-26] MEDS ORDERED: LORAZEPAM 2 MG/ML 1 ML VIAL IV STA (23:25)
[2016-11-26] MEDS ORDERED: DULOXETINE (CYMBALTA) 30 MG CAP PO STA (23:53)
[2016-11-26] MEDS ORDERED: MoRPHine SULFATE 4 MG/ML 1 ML CARP\\VIAL IV STA (23:53)
[2016-11-26] MEDS ORDERED: CYM/30 PO (23:55)
[2016-11-27 00:48] VITALS: BP 125/83; PULSE 74; O2SAT 97
[2016-11-27] MEDS ORDERED: RIZA10TA18 PO (18:52)
[2016-12-10] MEDS ORDERED: BND25X PO (10:56)
[2016-12-10] MEDS ORDERED: PRED10TA PO (10:56)
[2016-12-10] MEDS ORDERED: MRLP17 PO (10:56)
[2016-12-10] MEDS ORDERED: DULO60CA44 PO (10:56)
[2016-12-10] MEDS ORDERED: TRMCR180 EXT (10:56)
[2016-12-10] MEDS ORDERED: RXC5 PO (10:56)
[2016-12-16] MEDS ORDERED: RIZA10TA18 PO (20:05)
[2016-12-27] MEDS ORDERED: AMOX875T PO (06:51)
== END 2016-11-27 00:48 | disposition home or self-care (01) ==
LOC: C.EDB 19:53
DX: N73.9 Female pelvic inflammatory disease, unspecified (principal); R51 Headache

== ENCOUNTER 2016-11-27 13:47 | Emergency (ER) | payer OTHER ==
[~2016-11-27] VITALS: Ht 162.6 cm; Wt 84.6 kg
[~2016-11-27 13:47] MED LIST changes: +CYM/30 PO; -DICY20TA35 PO; -OXYC-57 PO
[2016-11-27 13:54] VITALS: TEMP 37.1; Ht 162.6 cm; Wt 84.6 kg
--- NOTE | 2016-11-27 15:20 | EMERGENCY ROOM VISIT NOTE ---
ED Visit Note First contact with patient: 15:14 The patient was seen and examined with Milli Powell PA-C. I agree with the history, physical and findings. Please see the note for disposition and details.
[2016-11-27] MEDS ORDERED: PROMETHAZINE HCL INJ 12.5 MG in SODIUM CHLORIDE 0.9% 50ML 50 ML IV STA (15:40)
[2016-11-27] MEDS ORDERED: KETOROLAC TROMETHAMINE 30 MG/ML VIAL IV STA (15:40)
[2016-11-27] MEDS ORDERED: LORAZEPAM 2 MG/ML 1 ML VIAL IV STA (15:40)
[2016-11-27] MEDS ORDERED: DiphenhydrAMINE HCL 50 MG/ML VIAL IV STA (15:40)
[2016-11-27] MEDS ORDERED: SODIUM CHLORIDE 0.9% 1000ML 1,000 ML IV STA (15:40)
[2016-11-27] MEDS ORDERED: DIHYDROERGOTAMINE MESYLATE 1 MG/ML VIAL IM ONE (15:45)
[2016-11-27] MEDS ORDERED: DEXAMETHASONE SOD INJ 10 MG/ML VIAL IV ONE (15:45)
[2016-11-27] MEDS ORDERED: PROMETHAZINE HCL INJ 50 MG/ML 1 ML VIAL/AMP IM ONE (15:52)
[2016-11-27] MEDS ORDERED: MoRPHine SULFATE 4 MG/ML 1 ML CARP\\VIAL IV STA ×2 (17:08→18:19)
[2016-11-27 18:29] VITALS: BP 131/85; PULSE 71; O2SAT 100
[2016-11-27] MEDS ORDERED: RIZA10TA18 PO (18:52)
--- NOTE | 2016-11-27 18:52 | EMERGENCY ROOM VISIT NOTE ---
History First contact with patient: 15:14 Chief Complaint: HEADACHE Stated Complaint: MIGRAINE History of Present Illness The patient is a 31 year old female who presents to the Emergency Room with complaints of a migraine headache. The patient states that she was seen here yesterday for a migraine and had some relief when she left, however she was told to stay home from class but not and she states her headache returned. She states that her headache returned around 10:30 this morning. She is out of rizatriptan and took ibuprofen without relief. She reports she has associated photophobia, blurred vision, nausea, vomiting and sensitivity to touch. She states this is similar to previous migraines. 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 She states that she is in the process of getting set up with a PCP. He reports that her standard treatment includes Toradol, Phenergan with lorazepam, D.H.E., Benadryl, Decadron and fluids. She states she sometimes needs morphine and Nubain as a last resort. This is not the worst headache of her life and she denies any new or concerning symptoms. She denies numbness, weakness, neck stiffness, fevers or recent illness. Review of Systems A complete 10 point review of systems was reviewed with the patient with pertinent positives and negatives as per history of present illness. All else were negative. Past Medical/Surgical History Medical Problems: (1) History of kidney stones (2) History of ovarian cyst (3) PID (pelvic inflammatory disease) Surgical Problems: (1) Hx of tonsillectomy (2) SBO (small bowel obstruction) Family History Patient reports no known family medical history. Social History Smoking Status: Never Smoker Drug Use: none Marital Status: single Housing Status: lives alone Occupation Status: student Current/Historical Medications Scheduled Clonazepam (Klonopin), 1 MG PO TID Doxycycline Monohydrate (Monodox), 100 MG PO BID Duloxetine HCl (Cymbalta), 30 MG PO QPM Duloxetine Hcl (Cymbalta), 30 MG PO DAILY Lamotrigine (Lamictal), 100 MG PO QPM Metronidazole (Flagyl), 500 MG PO BID Norethindrone & Eth Estradiol (Necon ), 1 TAB PO DAILY Pramipexole Dihydrochloride (Mirapex), 0.5 MG PO QPM Rizatriptan Benzoate (Maxalt), 1 TAB PO UD Scheduled PRN Clonidine Hcl (Catapres), 0.2 MG PO DAILY PRN for PRN Physical Exam Vital Signs Date Time Temp Pulse Resp B/P (MAP) Pulse Ox O2 Delivery O2 Flow Rate FiO2 11/27/16 18:29 71 18 131/85 100 Room Air 11/27/16 15:59 65 16 112/66 98 Room Air 11/27/16 13:54 37.1 103 18 147/82 98 Room Air Pain Rating (0-10): 5.0 Physical Exam VITALS: Vitals are noted on the nurse's note and reviewed by myself. Vital signs stable. GENERAL: This is a 31-year-old female, in no acute distress, nondiaphoretic, well-developed well-nourished. HEAD: Normocephalic atraumatic. EARS: External auditory canals clear, tympanic membranes pearly ramos without erythema or effusion bilaterally. EYES: Pupils equal round and reactive to light and accommodation. Conjunctivae without injection, sclerae without icterus. Extraocular movements intact. MOUTH: Mucous membranes moist. NECK: Supple without nuchal rigidity. No lymphadenopathy. No meningismus. HEART: Regular rate and rhythm without murmurs gallops or rubs. LUNGS: Clear to auscultation bilaterally without wheezes, rales or rhonchi. MUSCULOSKELETAL: Full range of motion throughout. Strength 5/5 throughout. NEURO: Patient was alert and oriented to person place and time. Normal sensation to light and sharp touch. No focal neurological deficits. Medical Decision & Procedures Medications Administered Medications (Trade) Dose Ordered Sig/Radha Route Start Time Stop Time Status Last Admin Dose Admin Sodium Chloride 1,000 ml @ 999 mls/hr Q1H1M STAT IV 11/27/16 15:40 11/27/16 16:40 DC 11/27/16 16:13 999 MLS/HR Ketorolac Tromethamine (Toradol Inj) 30 mg NOW STAT IV 11/27/16 15:40 11/27/16 15:45 DC 11/27/16 16:13 30 MG Promethazine HCl 12.5 mg/Sodium Chloride 50.5 ml @ 204 mls/hr NOW STAT IV 11/27/16 15:40 8/21/17 15:54 DC 11/27/16 16:14 204 MLS/HR Lorazepam (Ativan Inj) 0.5 mg NOW STAT IV 11/27/16 15:40 11/27/16 15:45 DC 11/27/16 16:13 0.5 MG Diphenhydramine HCl (Benadryl Inj) 50 mg NOW STAT IV 11/27/16 15:40 11/27/16 15:45 DC 11/27/16 16:13 50 MG Dexamethasone Sodium Phosphate (Decadron Inj) 10 mg NOW ONCE IV 11/27/16 15:45 11/27/16 15:46 DC 11/27/16 16:13 10 MG Dihydroergotamine Mesylate (D.H.E. 45 Inj) 1 mg NOW ONCE IM 11/27/16 15:45 11/27/16 15:46 DC 11/27/16 16:03 1 MG Morphine Sulfate (MoRPHine SULFATE INJ) 4 mg NOW STAT IV 11/27/16 17:08 11/27/16 17:09 DC 11/27/16 17:18 4 MG Morphine Sulfate (MoRPHine SULFATE INJ) 4 mg NOW STAT IV 11/27/16 18:19 11/27/16 18:20 DC 11/27/16 18:30 4 MG ED Course The patient was evaluated as above. Labs were drawn and IV access was obtained. Patient was medicated with 1 L normal saline solution, 30 g Toradol IV, 12.5 mg Phenergan IV, 1 mg lorazepam, D.H.E., 50 mg Benadryl, 10 mg Decadron per her usual protocol. The patient was reevaluated and reported she only had slight relief with that treatment. She was given 4 mg morphine IV. Patient still reported a severe headache. She was given an additional 4 mg morphine prior to discharge. Discharge instructions were reviewed with the patient. The patient verbalized understanding of my assessment and treatment plan and was discharged home in good condition. Medical Decision The differential diagnosis includes acute intracranial bleed, meningitis, encephalitis, mass or mass effect, sinusitis, infection, tumor, headache, temporal arteritis and carbon monoxide exposure, and migraine. The patient is a 31-year-old female who presents today complaining of headache. Previous records were reviewed. The patient was treated yesterday per her usual protocol. I did order the treatment that the patient states typically works for her migraines. She had little relief with this and felt that she would need morphine for her migraine. I had a lengthy discussion with the patient regarding the treatment of her migraines and her frequent visits to the emergency department in the last month. I did agree to treat her with morphine at this visit, but informed her that we would likely not be able to treat her migraines with narcotic medications in the future. I stressed the need for follow-up with PCP and neurology. I did give the patient a refill for rizatriptan. She also reported that she was almost out of her Klonopin and requests a refill, but I informed her I would not be able to do this. There is no evidence of meningitis or encephalitis on exam. Patient's symptoms are consistent with her previous migraine headaches. Based on the patient's presentation and work up, I feel the patient is stable for outpatient treatment. The patient was educated to return to the emergency department for any worsening of their current condition or new/concerning symptoms. She will follow up with a primary care provider or neurologist. Medication Reconcilliation Current Medication List: was personally reviewed by me Blood Pressure Screening Patient's blood pressure: Elevated blood pressure Blood pressure disposition: Elevated BP felt to be situational Impression Primary Impression: Headache Departure Information Dispostion Home / Self-Care Condition GOOD Prescriptions Rizatriptan Benzoate (MAXALT) 10 Mg Tab 1 TAB PO UD, #10 TAB Take one tablet as needed for onset of migraine headache, no more than 2 tabs in 24 hrs Prov: Milli Powell ., LISBET 11/27/16 Referrals No Doctor, Assigned (PCP) Patient Instructions My [facility] Additional Instructions You have been treated in the Emergency Department for a Headache. You have received pain medicine in the emergency department which impairs your ability to operate a vehicle. It is illegal for you to drive after receiving these medicines. For pain control, you can use the following [id number] medicines (if >12 yo): - Regular strength (325mg/tab) Tylenol (acetaminophen) 2 tabs every 4-6 hours as needed. Do not exceed 12 tablets in a 24 hour period. Avoid taking more than 4 grams (4000 mg) of Tylenol per day. This includes any other sources of acetaminophen you may take on a regular basis. - Regular strength (200 mg/tab) Advil (ibuprofen) 1-2 tabs every 4-6 hours as needed. Do not exceed a dose of 3200 mg per day. You should relax in a quiet, dark place for the rest of the day. Avoid any possible triggers including: cigarette smoke, caffeine, nicotine, chocolate, wine, beer, loud noises or music, or bright lights. You should schedule a follow-up appointment in 2-3 days with your Primary Care Provider or established Neurologist for further evaluation and treatment of your Headache. Return to the Emergency Department if your current symptoms worsen despite treatment course outlined above, or if you develop any of the following symptoms : intractable pain despite aforementioned treatment course, visual disturbances , loss of vision, unilateral weakness or facial drooping, slurring of speech, loss of coordination, or loss of consciousness.
[2016-12-10] MEDS ORDERED: DULO60CA44 PO (10:56)
[2016-12-10] MEDS ORDERED: MRLP17 PO (10:56)
[2016-12-10] MEDS ORDERED: BND25X PO (10:56)
[2016-12-10] MEDS ORDERED: PRED10TA PO (10:56)
[2016-12-10] MEDS ORDERED: TRMCR180 EXT (10:56)
[2016-12-10] MEDS ORDERED: RXC5 PO (10:56)
[2016-12-16] MEDS ORDERED: RIZA10TA18 PO (20:05)
[2016-12-27] MEDS ORDERED: AMOX875T PO (06:51)
== END 2016-11-27 19:02 | disposition home or self-care (01) ==
LOC: C.EDB 13:48
DX: R51 Headache (principal); N83.209 Unspecified ovarian cyst, unspecified side; K56.60 Unspecified intestinal obstruction; Z86.19 Personal history of other infectious and parasitic diseases; Z87.442 Personal history of urinary calculi; Z79.899 Other long term (current) drug therapy

== ENCOUNTER 2016-12-02 19:20 | Emergency (ER) | payer OTHER ==
[~2016-12-02] VITALS: Ht 162.6 cm; Wt 84.4 kg
[~2016-12-02 19:20] MED LIST changes: +RIZA10TA18 PO
[2016-12-02 19:27] VITALS: TEMP 37.4; Ht 162.6 cm; Wt 84.4 kg
[2016-12-02] MEDS ORDERED: MoRPHine SULFATE 4 MG/ML 1 ML CARP\\VIAL IV STA (19:44)
[2016-12-02] MEDS ORDERED: SODIUM CHLORIDE 0.9% 1000ML 1,000 ML IV STA (19:44)
[2016-12-02] MEDS ORDERED: ONDANSETRON INJ 2 MG/ML 2 ML VIAL IV STA (19:44)
[2016-12-02 20:04] LABS: BASO % 0.2 %; BASO ABS # 0.02 K/uL (0-0.2); COMPLETE YES; EOS % 1.8 %; HEMATOCRIT 38.7 % (37-47); IG% 0.2 %; LYMPH % 33.2 %; LYMPH ABS # 3.15 K/uL (1.2-3.4); MEAN CELL VOLUME 94.9 fL (80-100); MEAN CORPUSCULAR HEMOGLOBIN 30.6 pg (25-34); MEAN CORPUSCULAR HGB CONC 32.3 g/dl (32-36); MEAN PLATELET VOLUME 9.8 fL (7.4-10.4); MONO % 5.3 %; NEUT % 59.3 %; PLATELET COUNT 434 K/uL (130-400); RED BLOOD COUNT 4.08 M/uL (4.2-5.4)
[2016-12-02] MEDS ORDERED: DOXY100C76 PO (20:05)
[2016-12-02 20:12] LABS: URINE APPEARANCE CLEAR (CLEAR); URINE BILIRUBIN NEG (NEG); URINE COLOR DK YELLOW; URINE EPITHELIAL CELL AUTO >30 /lpf (0-5); URINE NITRITE NEG (NEG); URINE SPECIFIC GRAVITY 1.031 (1.000-1.030); UROBILINOGEN NEG (NEG)
[2016-12-02 20:21] LABS: ALT/SGPT 27 U/L (12-78); BLOOD UREA NITROGEN 12 mg/dl (7-18); BUN/CREATININE RATIO 14.1 (10-20); CALCIUM 8.1 mg/dl (8.5-10.1); CARBON DIOXIDE 25 mmol/L (21-32); CHLORIDE 108 mmol/L (98-107); CREATININE 0.82 mg/dl (0.60-1.20); GLUCOSE 141 mg/dl (70-99); POTASSIUM 3.2 mmol/L (3.5-5.1); SODIUM 141 mmol/L (136-145)
[2016-12-02 20:23] LABS: MANUAL MICROSCOPIC REQUIRED? NO; REVIEW REQ? NO
[2016-12-02 20:24] LABS: ALKALINE PHOSPHATASE 76 U/L (45-117); AST/SGOT 14 U/L (15-37)
[2016-12-02] MEDS ORDERED: DiphenhydrAMINE HCL 50 MG/ML VIAL IV STA (21:42)
[2016-12-02] MEDS ORDERED: FENTANYL CITRATE INJ 50 MCG/1 ML 2 ML VIAL IV STA (22:18)
[2016-12-02] MEDS ORDERED: NORE1TAB39 PO (22:56)
[2016-12-02] MEDS ORDERED: CYM/30 PO (22:56)
[2016-12-02] MEDS ORDERED: OPTIRAY 320 IV PRN (23:00)
[2016-12-02] MEDS ORDERED: CIPROFLOXACIN 500 MG TAB PO STA (23:38)
[2016-12-02] MEDS ORDERED: CIPR250T3 PO (23:40)
[2016-12-02 23:53] VITALS: BP 101/79; PULSE 70; O2SAT 95
--- NOTE | 2016-12-03 00:04 | EMERGENCY ROOM VISIT NOTE ---
History Report prepared by Yane: Susie Cuadra Under the Supervision of: Dr. Tano Reid M.D. First contact with patient: 19:34 Chief Complaint: FLANK PAIN Stated Complaint: KIDNEY/FLANK PAIN, PERSISTENT FEVER, VOMITING History of Present Illness The patient is a 31 year old female who presents to the Emergency Room with complaints of an episode of right flank pain starting two days ago. She states that she came to the ED because Urgent Care told her to come here. The patient states that she has a history of kidney stones since she was 15 and that this pain feels similar to her previous kidney stones. She describes it as a constant aching pain with intermittent sharp pains. The patient currently rates her pain as a 7/10 in severity. She notes that she had a kidney surgery in September of a basket lithotripsy that removed 10 stones. The patient notes that she has had dark brown urine. The patient states that it is painful to urinate and she has not been producing a lot of urine. She notes she has been drinking a lot of water and Gatorade. The patient notes that she is having bladder spasms. She reports that she has been vomiting and having fevers. She states she has been taking Ibuprofen. The patient complains of diaphoresis. She notes that the pain is not the same as the past 3 times she has been here this month for abdominal pain. Source of History: patient Onset: two days ago Position: other (right flank) Symptom Intensity: 7/10 Quality: ache, sharp Timing: other (episode) Associated Symptoms: + fevers (MAXIMUM TEMPERATURE 101), + diaphoresis, + vomiting, + urinary symptoms Review of Systems See HPI for pertinent positives & negatives. A total of 10 systems reviewed and were otherwise negative. Past Medical & Surgical Medical Problems: (1) History of kidney stones (2) History of ovarian cyst (3) PID (pelvic inflammatory disease) Surgical Problems: (1) Hx of tonsillectomy (2) SBO (small bowel obstruction) Family History Patient reports no known family medical history. Social History Smoking Status: Current Every Day Smoker Drug Use: none Marital Status: single Housing Status: lives alone Occupation Status: student Current/Historical Medications Scheduled Ciprofloxacin (Cipro), 250 MG PO BID Clonazepam (Klonopin), 1 MG PO TID Clonidine Hcl (Catapres), 0.2 MG PO HS Doxycycline Monohydrate (Monodox), 100 MG PO BID Duloxetine HCl (Cymbalta), 30 MG PO HS Lamotrigine (Lamictal), 100 MG PO HS Metronidazole (Flagyl), 500 MG PO BID Norethindrone & Eth Estradiol (Necon ), 1 TAB PO HS Pramipexole Dihydrochloride (Mirapex), 0.5 MG PO HS Scheduled PRN Rizatriptan Benzoate (Maxalt), 10 MG PO UD PRN for Migraine Allergies Coded Allergies: Metoclopramide (Verified Allergy, Intermediate, panic attacks, 11/16/16) Prochlorperazine (Verified Allergy, Intermediate, panic attack, 11/16/16) Sulfa Antibiotics (Verified Allergy, Intermediate, vomiting, 11/16/16) Physical Exam Vital Signs Date Time Temp Pulse Resp B/P (MAP) Pulse Ox O2 Delivery O2 Flow Rate FiO2 12/02/16 23:53 70 16 101/79 95 12/02/16 23:05 65 16 135/87 97 Room Air 12/02/16 22:11 99 20 131/92 99 Room Air 12/02/16 19:27 37.4 103 20 171/102 99 Room Air Physical Exam Constitutional: Vital signs reviewed. Eyes: Pupils are equal round reactive to light. Conjunctiva are noninjected. ENT: Pharynx is clear without erythema or exudate. Mucous membranes are moist. Neck supple without meningeal signs. Respiratory: Clear to auscultation bilaterally. Breath sounds are equal bilaterally. Cardiovascular: Regular rate and rhythm. No rubs or gallops. GI: Soft, nondistended. Tenderness in the RLQ and suprapubic region with voluntary guarding. Bowel sounds are present. Musculoskeletal: No peripheral edema. No CVA tenderness. Integumentary: No cyanosis. Neurological: The patient is awake and alert. No focal deficits. Psychiatric: Normal affect. Medical Decision & Procedures ER Provider Diagnostic Interpretation: Radiology results as stated below per my review and the radiologist's interpretation: CT ABDOMEN & PELVIS: Comparison: CT a/p 11/15/2016 The appendix is normal in size without evidence of surrounding inflammatory change. No free fluid. No free air. The bowel is normal in caliber. No urolithiasis. No hydronephrosis. Small right renal hypodensity, too small to characterize but likely cyst. The liver, spleen, pancreas, gallbladder are unremarkable. Radiologist: Moises Askew MD Study ready at 23:16 and initial results transmitted at 23:31. Laboratory Results 12/02/16 19:50 Red Blood Count 4.08, Mean Corpuscular Volume 94.9, Mean Corpuscular Hemoglobin 30.6, Mean Corpuscular Hemoglobin Concent 32.3, Mean Platelet Volume 9.8, Neutrophils (%) (Auto) 59.3, Lymphocytes (%) (Auto) 33.2, Monocytes (%) (Auto) 5.3, Eosinophils (%) (Auto) 1.8, Basophils (%) (Auto) 0.2, Neutrophils # (Auto) 5.64, Lymphocytes # (Auto) 3.15, Monocytes # (Auto) 0.50, Eosinophils # (Auto) 0.17, Basophils # (Auto) 0.02 12/02/16 19:50 Test 12/02/16 19:50 White Blood Count 9.50 K/uL (4.8-10.8) Red Blood Count 4.08 M/uL (4.2-5.4) Hemoglobin 12.5 g/dL (12.0-16.0) Hematocrit 38.7 % (37-47) Mean Corpuscular Volume 94.9 fL (80-100) Mean Corpuscular Hemoglobin 30.6 pg (25-34) Mean Corpuscular Hemoglobin Concent 32.3 g/dl (32-36) Platelet Count 434 K/uL (130-400) Mean Platelet Volume 9.8 fL (7.4-10.4) Neutrophils (%) (Auto) 59.3 % Lymphocytes (%) (Auto) 33.2 % Monocytes (%) (Auto) 5.3 % Eosinophils (%) (Auto) 1.8 % Basophils (%) (Auto) 0.2 % Neutrophils # (Auto) 5.64 K/uL (1.4-6.5) Lymphocytes # (Auto) 3.15 K/uL (1.2-3.4) Monocytes # (Auto) 0.50 K/uL (0.11-0.59) Eosinophils # (Auto) 0.17 K/uL (0-0.5) Basophils # (Auto) 0.02 K/uL (0-0.2) RDW Standard Deviation 46.2 fL (36.4-46.3) RDW Coefficient of Variation 13.2 % (11.5-14.5) Immature Granulocyte % (Auto) 0.2 % Immature Granulocyte # (Auto) 0.02 K/uL (0.00-0.02) Urine Color DK YELLOW Urine Appearance CLEAR (CLEAR) Urine pH 6.0 (4.5-7.5) Urine Specific Marrero 1.031 (1.000-1.030) Urine Protein NEG (NEG) Urine Glucose (UA) NEG (NEG) Urine Ketones NEG (NEG) Urine Occult Blood NEG (NEG) Urine Nitrite NEG (NEG) Urine Bilirubin NEG (NEG) Urine Urobilinogen NEG (NEG) Urine Leukocyte Esterase SMALL (NEG) Urine WBC (Auto) 10-30 /hpf (0-5) Urine RBC (Auto) 0-4 /hpf (0-4) Urine Hyaline Casts (Auto) 5-10 /lpf (0-5) Urine Epithelial Cells (Auto) >30 /lpf (0-5) Urine Bacteria (Auto) 1+ (NEG) Urine Test NEG (NEG) Anion Gap 8.0 mmol/L (3-11) Est Creatinine Clear Calc Drug Dose 104.5 ml/min Estimated GFR () 110.5 Estimated GFR (Non- 95.4 BUN/Creatinine Ratio 14.1 (10-20) Calcium Level 8.1 mg/dl (8.5-10.1) Total Bilirubin 0.3 mg/dl (0.2-1) Direct Bilirubin < 0.1 mg/dl (0-0.2) Aspartate Amino Transf (AST/SGOT) 14 U/L (15-37) Alanine Aminotransferase (ALT/SGPT) 27 U/L (12-78) Alkaline Phosphatase 76 U/L (45-117) Total Protein 7.0 gm/dl (6.4-8.2) Albumin 3.4 gm/dl (3.4-5.0) Lipase 192 U/L (73-393) Laboratory results as reviewed by me. Medications Administered Medications (Trade) Dose Ordered Sig/Radha Route Start Time Stop Time Status Last Admin Dose Admin Morphine Sulfate (MoRPHine SULFATE INJ) 4 mg ONE STAT IV 12/02/16 19:44 12/02/16 19:45 DC 12/02/16 20:02 4 MG Ondansetron HCl (Zofran Inj) 4 mg NOW STAT IV 12/02/16 19:44 12/02/16 19:45 DC 12/02/16 20:02 4 MG Sodium Chloride 1,000 ml @ 999 mls/hr Q1H1M STAT IV 12/02/16 19:44 12/02/16 20:44 DC 12/02/16 20:01 999 MLS/HR Diphenhydramine HCl (Benadryl Inj) 25 mg NOW STAT IV 12/02/16 21:42 12/02/16 21:43 DC 12/02/16 22:02 25 MG Fentanyl Citrate (Fentanyl Inj) 25 mcg NOW STAT IV 12/02/16 22:18 12/02/16 22:19 DC 12/02/16 22:28 25 MCG Ciprofloxacin (Cipro Tab) 500 mg NOW STAT PO 12/02/16 23:38 12/02/16 23:39 DC 12/02/16 23:49 500 MG ED Course 1937: The patient was evaluated in room B8. A complete history and physical exam was performed. 1943: Ordered NSS 1000 ml @ 999 mls/hr IV, Zofran Inj 4 mg IV, Morphine Sulfate 4 mg IV. 2139: I reevaluated the patient and she feels itchy. She denies a rash and trouble breathing. She states that she has had this with pain medications before. I discussed her test results with her. 2141: Ordered Benadryl Inj 25 mg IV. 8: Ordered Fentanyl Inj 25 mcg IV. 4: Upon reevaluation, the patient appeared to have improvement of her symptoms. I discussed joi's findings with the patient. She verbalized agreement of the treatment plan. The patient was discharged home. 8: Ordered Cipro Tab 500 mg PO. Medical Decision This is a 31-year-old female who presents with right-sided abdominal pain and fever. Differential diagnosis includes kidney stone, UTI, pyelonephritis, acute appendicitis, perforation, abscess. I did perform a limited focused review of portions of the patient's old chart on the electronic medical record. This is the patient's seventh visit this month. She has had a CT of her abdomen and pelvis done on November 15 which showed a 3 mm right ovarian cyst. Otherwise, the patient's CT was normal. I did evaluate the patient as noted above. The patient is presenting with right -sided abdominal pain and fever up to 101 at home. She is tender in the right lower quadrant on my examination. I was concerned about the possibility of acute appendicitis. She states her pain today is different from her prior pain. She did agree to a CT scan after discussion of risks and benefits. IV access was established. I did treat the patient with IV morphine and Zofran. She was also given normal saline IV. She did develop some itching throughout her body after receiving the morphine and so she was given some Benadryl. She states that she has had itching like this in the past with opiates. She did have some persistent pain and was given fentanyl IV. I did order and personally review the patient's urinalysis as described above. A urine culture was sent. I did order and review the patient's blood work as noted in the electronic medical record. I did order a CT of the abdomen and pelvis. I did review the images myself as well as the radiology report as described above. There is no evidence of acute appendicitis or any other acute findings. I did discuss the test results with the patient. Given her urinary symptoms she will be treated with antibiotics. She was given a dose of Cipro here and discharged with a 7 day prescription for Cipro. She was told to follow with [facility] and to return for any worsening symptoms. Medication Reconcilliation Current Medication List: was personally reviewed by me Blood Pressure Screening Patient's blood pressure: Elevated blood pressure Impression Primary Impression: Right sided abdominal pain Additional Impression: UTI (urinary tract infection) Scribe Attestation The scribe's documentation has been prepared under my direct and personally reviewed by me in its entirety. I confirm that the note above accurately reflects all work, treatment, procedures, and medical decision making performed by me. Departure Information Dispostion Home / Self-Care Prescriptions Ciprofloxacin (CIPRO) 250 Mg Tab 250 MG PO BID for 7 Days, #14 TAB Prov: Tano Reid M.D. 12/02/16 Referrals No Doctor, Assigned (PCP) Forms HOME CARE DOCUMENTATION FORM, IMPORTANT VISIT INFORMATION Patient Instructions My [facility] Additional Instructions You have been examined and treated today on an emergency basis only. This is not a substitute for, or an effort to provide, complete comprehensive medical care. It is impossible to recognize and treat all injuries or illnesses in a single emergency department visit. It is therefore important that you follow up closely with your physician or [facility]. Call as soon as possible for an appointment. Return for worsening symptoms or if you develop any other concerning symptoms. Problem Qualifiers Additional Impression: UTI (urinary tract infection) Urinary tract infection type: acute cystitis Hematuria presence: without hematuria Qualified Codes: N30.00 - Acute cystitis without hematuria
--- NOTE | 2016-12-03 06:24 | DIAGNOSTIC IMAGING REPORT ---
ABD/PELVIS IV AND ORAL CONT HISTORY: 31 years-old Female acute right-sided flank pain with fever and nausea. COMPARISON: CT abdomen and pelvis 11/15/2016 TECHNIQUE: Multiple axial CT images of the abdomen and pelvis were obtained following the administration of 93 mL Optiray 320. Oral contrast was also used. A dose lowering technique was used consistent with the principals of ANNA MARIE. FINDINGS: Lung bases are clear. No pneumoperitoneum. Inferior cardiac chambers are unremarkable. The liver, spleen, gallbladder, pancreas and adrenal glands are within normal limits. Probable cyst of the inferior pole right kidney is seen, 9 mm. Kidneys are otherwise unremarkable. Ureters, urinary bladder, uterus and adnexa are within normal limits. Abdominal aorta is normal in course and caliber. No bulky adenopathy. No bowel obstruction or focal bowel wall thickening. The appendix is air and contrast filled and appears normal. Soft tissues are unremarkable. Bones appear intact. IMPRESSION: No acute intra-abdominal or intrapelvic abnormality identified. Normal CT appearance of the appendix. The above report was generated using voice recognition software. It may contain grammatical, syntax or spelling errors. Electronically signed by: Malcolm Bowles M.D. 12/03/2016 6:22 AM Dictated Date/Time: 12/03/2016 6:18 AM
[2016-12-10] MEDS ORDERED: TRMCR180 EXT (10:56)
[2016-12-10] MEDS ORDERED: MRLP17 PO (10:56)
[2016-12-10] MEDS ORDERED: PRED10TA PO (10:56)
[2016-12-10] MEDS ORDERED: RXC5 PO (10:56)
[2016-12-10] MEDS ORDERED: BND25X PO (10:56)
[2016-12-10] MEDS ORDERED: DULO60CA44 PO (10:56)
[2016-12-16] MEDS ORDERED: RIZA10TA18 PO (20:05)
[2016-12-27] MEDS ORDERED: AMOX875T PO (06:51)
== END 2016-12-02 23:53 | disposition home or self-care (01) ==
LOC: C.EDB 19:21
DX: R10.31 Right lower quadrant pain (principal); N39.0 Urinary tract infection, site not specified; K56.60 Unspecified intestinal obstruction; N83.209 Unspecified ovarian cyst, unspecified side; F17.200 Nicotine dependence, unspecified, uncomplicated; Z87.442 Personal history of urinary calculi; Z98.890 Other specified postprocedural states; Z79.899 Other long term (current) drug therapy; Z88.2 Allergy status to sulfonamides; Z88.8 Allergy status to other drugs, medicaments and biological substances

== ENCOUNTER 2016-12-05 10:28 | Inpatient (IN) | payer OTHER ==
[~2016-12-05] VITALS: Ht 162.6 cm; Wt 82.0 kg
[~2016-12-05 10:28] MED LIST changes: +CIPR250T3 PO; -METR-163 PO; +NORE1TAB39 PO; -RIZA10TA18 PO
[2016-12-05] MEDS ORDERED: SODIUM CHLORIDE 0.9% 1000ML 1,000 ML IV STA ×2 (11:09→14:50)
[2016-12-05 11:23] LABS: BASO % 0.3 %; BASO ABS # 0.03 K/uL (0-0.2); COMPLETE YES; EOS % 0.8 %; HEMATOCRIT 39.1 % (37-47); IG% 0.3 %; LYMPH % 24.1 %; LYMPH ABS # 2.56 K/uL (1.2-3.4); MEAN CELL VOLUME 94.2 fL (80-100); MEAN CORPUSCULAR HEMOGLOBIN 31.1 pg (25-34); MEAN PLATELET VOLUME 9.9 fL (7.4-10.4); MONO % 7.9 %; NEUT % 66.6 %; PLATELET COUNT 406 K/uL (130-400); RED BLOOD COUNT 4.15 M/uL (4.2-5.4); WHITE BLOOD COUNT 10.63 K/uL (4.8-10.8)
--- NOTE | 2016-12-05 11:29 | EMERGENCY ROOM VISIT NOTE ---
History First contact with patient: 11:01 Chief Complaint: GI ASSESSMENT Stated Complaint: HEADACHE, NAUSEA Nursing Triage Summary: Pt was seen at Urgent Care, a BLS ambulance was called and the pt was taken to triage. Pt c/o headache, dizziness, nausea, vomiting, and diarrhea (the diarrhea for a few days per the pt). BP in triage 75/47 left arm. States recently started on a medication and feels it is making her sick as this is the only thing different per the pt. Pt would not keep her eyes open in triage and when would open them, would not make eye contact during triage, speaking low, monotone voice. History of Present Illness The patient is a 31 year old female who presents to the Emergency Room via ambulance referred from urgent care with complaints of "headache, nausea, dizziness, vomiting, diarrhea". The patient states that her current symptoms began yesterday, after taking Cipro. She states she is taking this for UTI. She developed vomiting, headache, abdominal pain last night. She states that she went to the urgent care today, because she felt very dizzy. She states that she also is expressing a headache, neck pain and abdominal pain. She states that she is feeling excessively sleepy. She also notes pain in the head , neck and left arm. She believes that her previous visits here for abdominal pain were secondary to ovarian cysts. She tried to make an appointment with [facility]. She denies any chest pain or shortness of breath. She denies any history of stroke. She denies any illicit drug use. She denies any alcohol use. She notes that other than the Cipro yesterday, she took Maxalt and that is the only medications. Review of Systems A complete 10-point Review of Systems was discussed with the patient, with pertinent positives and negatives listed in the History of Present Illness. All remaining Review of Systems questions can be considered negative unless otherwise specified. Past Medical/Surgical History Medical Problems: (1) History of kidney stones (2) History of ovarian cyst (3) Nausea & vomiting (4) PID (pelvic inflammatory disease) Surgical Problems: (1) Hx of tonsillectomy (2) SBO (small bowel obstruction) Family History Patient reports no known family medical history. Social History Smoking Status: Former Smoker Drug Use: none Marital Status: single Housing Status: lives alone Occupation Status: student Current/Historical Medications Scheduled Ciprofloxacin (Cipro), 250 MG PO BID Clonazepam (Klonopin), 1 MG PO TID Clonidine Hcl (Catapres), 0.2 MG PO HS Duloxetine HCl (Cymbalta), 30 MG PO HS Lamotrigine (Lamictal), 100 MG PO HS Norethindrone & Eth Estradiol (Necon ), 1 TAB PO HS Pramipexole Dihydrochloride (Mirapex), 0.5 MG PO HS Scheduled PRN Rizatriptan Benzoate (Maxalt), 10 MG PO UD PRN for Migraine Physical Exam Vital Signs Date Time Temp Pulse Resp B/P (MAP) Pulse Ox O2 Delivery O2 Flow Rate FiO2 12/05/16 16:51 59 15 111/73 99 Room Air 12/05/16 15:40 53 14 96/55 98 Room Air 12/05/16 14:59 70 18 105/63 98 12/05/16 13:04 55 18 104/61 100 Room Air 12/05/16 12:00 88/42 12/05/16 11:54 51 18 100 Room Air 12/05/16 11:35 99 Room Air 12/05/16 11:05 60 12/05/16 11:00 103/62 12/05/16 10:38 36.7 70 16 75/47 94 Room Air Physical Exam VITAL SIGNS - Vital signs and nursing notes were reviewed. Patient is currently afebrile, hypotensive at 75/47, non-tachycardic and is saturating on room air at 94%. GENERAL -31-year-old female appearing her stated age who is in no acute distress , but does appear to be very sleepy, makes poor eye contact, her eyes are barely open and her pupils are very dilated bilaterally. SKIN - Without rashes. No petechial rashes. HEAD - NC/AT. EYES - Sclera anicteric. Bulbar conjunctiva pink and moist with no injection noted. Pupils are large bilaterally. EARS - No deformities of external structures noted on gross examination bilaterally. NOSE - Midline and without cyanosis. No epistaxis or purulent drainage noted. Septum midline without deviation or septal hematoma noted. MOUTH/OROPHARYNX - Without perioral cyanosis. Buccal mucosa pink and moist and without leukoplakia. Tongue midline with equal elevation of palate bilaterally. No tonsillar hypertrophy, erythema, or exudates noted. Fair dentition noted. NECK - Neck with FROM. Supple to palpation. No lymphadenopathy noted. No nuchal rigidity. No meningismus. LUNGS - Chest wall symmetric without accessory muscle use, intercostals retractions, or central cyanosis. Normal vesicular breath sounds CTA B/L. No wheezes, rales, or rhonchi appreciated. CARDIAC - RRR with S1/S2. No murmur, rubs, or gallops appreciated. ABDOMEN - Abdominal contour without pulsations or visible masses. BS normoactive all four quadrants. No tenderness, palpable masses, hepatosplenomegaly, or ascites noted. EXTREMITIES - No clubbing or peripheral cyanosis. No pretibial edema present. Neurovascularly intact in the extremities. +5/5 strength noted in UE/LE bilaterally. NEUROLOGIC - Cranial nerves II through XII grossly intact. Sensory intact to light touch throughout. PSYCH - A&Ox3 and cooperates fully with examiner. Pt answers all questions appropriately, but is slow in response and appears to be sedated. Medical Decision & Procedures ER Provider Diagnostic Interpretation: CT OF THE HEAD WITHOUT CONTRAST CLINICAL HISTORY: Headache. Lethargic. COMPARISON STUDY: No previous studies for comparison. CT DOSE: 638.56 mGycm TECHNIQUE: Helical axial images of the head were obtained without IV contrast. Automated exposure control was utilized for the study. A dose lowering technique was utilized adhering to the principles of ALARA. FINDINGS: No acute intracranial hemorrhage, midline shift or mass effect is present. Ventricular system is normal. Basilar cisterns are patent. There are no extra-axial collections. Aaron-white differentiation is maintained. There are no findings to suggest acute dural sinus thrombosis or acute territorial infarct. There are no significant calvarial abnormalities. Minimal secretions within the right sphenoid and right maxillary sinuses are present. IMPRESSION: No acute intracranial findings. Electronically signed by: Rafael Coyle M.D. 12/05/2016 4:23 PM Dictated Date/Time: 12/05/2016 4:21 PM Laboratory Results 12/05/16 10:58 Red Blood Count 4.15, Mean Corpuscular Volume 94.2, Mean Corpuscular Hemoglobin 31.1, Mean Corpuscular Hemoglobin Concent 33.0, Mean Platelet Volume 9.9, Neutrophils (%) (Auto) 66.6, Lymphocytes (%) (Auto) 24.1, Monocytes (%) (Auto) 7.9, Eosinophils (%) (Auto) 0.8, Basophils (%) (Auto) 0.3, Neutrophils # (Auto) 7.08, Lymphocytes # (Auto) 2.56, Monocytes # (Auto) 0.84, Eosinophils # (Auto) 0.09, Basophils # (Auto) 0.03 12/05/16 10:58 Test 12/05/16 10:58 12/05/16 11:28 12/05/16 11:38 White Blood Count 10.63 K/uL (4.8-10.8) Red Blood Count 4.15 M/uL (4.2-5.4) Hemoglobin 12.9 g/dL (12.0-16.0) Hematocrit 39.1 % (37-47) Mean Corpuscular Volume 94.2 fL (80-100) Mean Corpuscular Hemoglobin 31.1 pg (25-34) Mean Corpuscular Hemoglobin Concent 33.0 g/dl (32-36) Platelet Count 406 K/uL (130-400) Mean Platelet Volume 9.9 fL (7.4-10.4) Neutrophils (%) (Auto) 66.6 % Lymphocytes (%) (Auto) 24.1 % Monocytes (%) (Auto) 7.9 % Eosinophils (%) (Auto) 0.8 % Basophils (%) (Auto) 0.3 % Neutrophils # (Auto) 7.08 K/uL (1.4-6.5) Lymphocytes # (Auto) 2.56 K/uL (1.2-3.4) Monocytes # (Auto) 0.84 K/uL (0.11-0.59) Eosinophils # (Auto) 0.09 K/uL (0-0.5) Basophils # (Auto) 0.03 K/uL (0-0.2) RDW Standard Deviation 47.1 fL (36.4-46.3) RDW Coefficient of Variation 13.6 % (11.5-14.5) Immature Granulocyte % (Auto) 0.3 % Immature Granulocyte # (Auto) 0.03 K/uL (0.00-0.02) Prothrombin Time 10.7 SECONDS (9.0-12.0) Prothromb Time International Ratio 1.0 (0.9-1.1) Activated Partial Thromboplast Time 22.9 SECONDS (21.0-31.0) Partial Thromboplastin Ratio 0.9 Anion Gap 9.0 mmol/L (3-11) Estimated GFR () 101.5 Estimated GFR (Non- 87.6 BUN/Creatinine Ratio 10.8 (10-20) Calcium Level 9.2 mg/dl (8.5-10.1) Magnesium Level 2.1 mg/dl (1.8-2.4) Total Bilirubin 0.4 mg/dl (0.2-1) Aspartate Amino Transf (AST/SGOT) 16 U/L (15-37) Alanine Aminotransferase (ALT/SGPT) 27 U/L (12-78) Alkaline Phosphatase 74 U/L (45-117) Total Creatine Kinase 46 U/L (26-192) Creatine Kinase MB < 0.5 ng/ml (0.5-3.6) Creatine Kinase MB Ratio (0-3.0) Total Protein 7.7 gm/dl (6.4-8.2) Albumin 3.8 gm/dl (3.4-5.0) Globulin 3.9 gm/dl (2.5-4.0) Albumin/Globulin Ratio 1.0 (0.9-2) Thyroid Stimulating Hormone (TSH) 1.300 uIu/ml (0.300-4.500) Salicylates Level < 1.7 mg/dl (2.8-20) Acetaminophen Level < 2 ug/ml (10-30) Venous Blood pH 7.37 (7.36-7.41) Venous Blood Partial Pressure CO2 47 mmHg (38.0-50.0) Venous Blood Partial Pressure O2 23 mmHg Venous Blood HCO3 27 mmol/L Venous Blood Oxygen Saturation < 60.0 % Venous Blood Base Excess 0.9 mEq/L Ethyl Alcohol mg/dL < 3.0 mg/dl (0-3) Urine Color DK YELLOW Urine Appearance CLOUDY (CLEAR) Urine pH 6.5 (4.5-7.5) Urine Specific [place] 1.026 (1.000-1.030) Urine Protein 1+ (NEG) Urine Glucose (UA) NEG (NEG) Urine Ketones TRACE (NEG) Urine Occult Blood NEG (NEG) Urine Nitrite NEG (NEG) Urine Bilirubin NEG (NEG) Urine Urobilinogen NEG (NEG) Urine Leukocyte Esterase MODERATE (NEG) Urine WBC (Auto) 10-30 /hpf (0-5) Urine RBC (Auto) 5-10 /hpf (0-4) Urine Hyaline Casts (Auto) 5-10 /lpf (0-5) Urine Epithelial Cells (Auto) >30 /lpf (0-5) Urine Bacteria (Auto) 1+ (NEG) Urine Test NEG (NEG) Urine Opiates Screen NEG (NEG) Urine Methadone, Qualitative NEG (NEG) Urine Barbiturates NEG (NEG) Urine Phencyclidine (PCP) Level NEG (NEG) Ur Amphetamine/Methamphetamine NEG (NEG) MDMA (Ecstasy) Screen NEG (NEG) Urine Benzodiazepines Screen POS (NEG) Urine Cocaine Metabolite NEG (NEG) Urine Marijuana (THC) NEG (NEG) Medications Administered Medications (Trade) Dose Ordered Sig/Radha Route Start Time Stop Time Status Last Admin Dose Admin Sodium Chloride 1,000 ml @ 999 mls/hr Q1H1M STAT IV 12/05/16 11:09 12/05/16 12:09 DC 12/05/16 11:09 999 MLS/HR Naloxone HCl (Narcan Inj) 0.4 mg NOW STAT IV 12/05/16 12:48 12/05/16 12:49 DC 12/05/16 13:07 0.4 MG Acetaminophen (Tylenol Tab) 650 mg Q4H PRN PO 12/05/16 15:00 01/04/17 14:59 12/05/16 16:49 650 MG Ondansetron HCl (Zofran Inj) 4 mg Q6H PRN IV 12/05/16 15:00 01/04/17 14:59 12/05/16 15:35 4 MG Sodium Chloride 1,000 ml @ 999 mls/hr Q1H1M STAT IV 12/05/16 14:50 12/05/16 15:50 DC 12/05/16 15:36 999 MLS/HR Fluconazole (Diflucan Tab) 150 mg TODAY@1700 ONCE PO 12/05/16 17:00 12/05/16 17:01 12/05/16 16:49 150 MG Ketorolac Tromethamine (Toradol Inj) 30 mg NOW STAT IV 12/05/16 15:04 12/05/16 15:25 DC 12/05/16 15:36 30 MG Medical Decision Patient was seen and evaluated as above. She presents to us today with complaints of headache, dizziness, nausea, vomiting and diarrhea. She sounded hypotensive in triage. Fluid bolus was initiated. Her previous visits were reviewed. She's been here 7 times in the past month. She notes she took Cipro , and Maxalt. She denies any other medications. Query of the PD [facility] reveals 1 prescription was written by us previously. When searched in the [employer] system, there are numerous controlled substances within the past year alone. These are from numerous providers. CBC reveals no leukocytosis. Her blood cell count is slightly low at 4.17. VBG is unremarkable. Coags normal. CMP reveals random glucose 109, TSH unremarkable. Metabolic function unremarkable. Urine does reveal a lot of contaminants, but will be cultured. Urine [place]ian test negative. Salicylate and Tylenol negative. Urine benzodiazepines are positive. Alcohol negative. Opiates negative. Patient was persistently exhibiting a sedated affect. She would barely make eye contact, her eyelids were nearly shut during conversation, and she was slow to respond to questioning. I was concerned that she could be experiencing an overdose of medication previous prescribed. Narcan was administered. No change. I then discussed the case with the attending physician, as well as the hospitalist. I do believe that further intervention management is warranted regarding the patient's current presentation. I discussed the case with Dr. Christensen. He recommended CT of the head. CT of the head is negative. Patient will be admitted for further evaluation and management. please refer to further documentation regarding her stay. In the evaluation and treatment of this patient, the following differential diagnoses were considered: Concussion, Contrecoup Injury, Brain Tumor, Depression, Encephalitis, Hypothyroidism, Meningitis, CVA, TIA, Migraine, Cluster Headache, Intracranial Abnormality, Intracranial Hemorrhage, Subdural Hematoma, Subarachnoid Hemorrhage, Hydrocephalus, among others. Impression Primary Impression: Headache Additional Impressions: Dizziness Nausea & vomiting Diarrhea Departure Information Dispostion Admitted as an inpatient Condition GOOD Referrals [facility] (PCP) Patient Instructions My [facility] Problem Qualifiers
[2016-12-05 11:31] LABS: PARTIAL THROMBOPLASTIN RATIO 0.9; PROTHROMBIN TIME (PATIENT) 10.7 SECONDS (9.0-12.0)
[2016-12-05 11:40] LABS: ALT/SGPT 27 U/L (12-78); BLOOD UREA NITROGEN 10 mg/dl (7-18); BUN/CREATININE RATIO 10.8 (10-20); CALCIUM 9.2 mg/dl (8.5-10.1); CARBON DIOXIDE 25 mmol/L (21-32); CHLORIDE 105 mmol/L (98-107); CREATININE 0.88 mg/dl (0.60-1.20); GLUCOSE 109 mg/dl (70-99); MAGNESIUM 2.1 mg/dl (1.8-2.4); POTASSIUM 4.1 mmol/L (3.5-5.1); SODIUM 139 mmol/L (136-145)
[2016-12-05 11:44] LABS: VEN BLD GAS O2 SATURATION < 60.0 %; VEN BLOOD GAS BASE EXCESS 0.9 mEq/L; VENOUS BLOOD GAS PCO2 47 mmHg (38.0-50.0); VENOUS BLOOD GAS PO2 23 mmHg
[2016-12-05 11:48] LABS: MANUAL MICROSCOPIC REQUIRED? NO; REVIEW REQ? NO; URINE APPEARANCE CLOUDY (CLEAR); URINE COLOR DK YELLOW; URINE EPITHELIAL CELL AUTO >30 /lpf (0-5); URINE NITRITE NEG (NEG); URINE PH 6.5 (4.5-7.5); URINE SPECIFIC GRAVITY 1.026 (1.000-1.030); UROBILINOGEN NEG (NEG); ZZUR CULT IF INDIC CLEAN CATCH YES
[2016-12-05 11:51] LABS: ALKALINE PHOSPHATASE 74 U/L (45-117); AST/SGOT 16 U/L (15-37)
[2016-12-05 11:57] LABS: URINE BILIRUBIN NEG (NEG)
[2016-12-05 11:58] LABS: ACETAMINOPHEN < 2 ug/ml (10-30)
[2016-12-05 12:08] LABS: BENZODIAZEPINE, URINE POS (NEG); COCAINE,URINE NEG (NEG); PHENCYCLIDINE, URINE NEG (NEG)
[2016-12-05] MEDS ORDERED: NALOXONE HCL 0.4 MG/1 ML VIAL/CARP IV STA (12:48)
[2016-12-05] MEDS ORDERED: MAGNESIUM HYDROXIDE SUSP 30 ML UDC PO PRN (15:00)
[2016-12-05] MEDS ORDERED: ALUMINUM/MAGNESIUM/SIMETH (MAALOX MAX) 30 ML UDC PO PRN (15:00)
[2016-12-05] MEDS ORDERED: POLYETHYLENE (MIRALAX) 17 GM PACK PO PRN (15:00)
[2016-12-05] MEDS ORDERED: RIZATRIPTAN BENZOATE 10 MG TAB PO PRN (15:00)
[2016-12-05] MEDS ORDERED: KETOROLAC TROMETHAMINE 30 MG/ML VIAL IV STA (15:04)
[2016-12-05] MEDS ORDERED: IV FLUIDS COMPLETED PRN (15:15)
--- NOTE | 2016-12-05 15:28 | History and Physical ---
History & Physical Date & Time of Service: Dec 05, 2016 at 15:25 Chief Complaint: Headache, Nausea Primary Care Physician: [facility] History of Present Illness Source: patient Ms. Aviles is a 31 y/o female with PMHx of Migraine Headaches, Nephrolithiasis , Frequent Ovarian Cysts, and recent Pelvic Inflammatory Disease who presents to the ED complaining of headache, dizziness, N/V, and diarrhea starting last night. This was the 9th ED visit this month related largely to R flank pain. She also has presented to [facility] related to this. She is known to have a R ovarian cyst and reports having issues with cysts since a young age. She has had intermittent brown spotting which is abnormal for her and is on contraceptives. She has also developed a white discharge that is "chunky" and thinks she may have a yeast infection. Also reports H/O kidney stones and reports they are usually non-radiopaque and followed with a urologist in [place]. She has been treated with Doxycycline and Flagyl x 2 weeks for reported PID and Trichomonas. However, cultures in our records did not show trichomonas but revealed gram + organism. She states her R flank pain has remained this month but then developed suprapubic pain and was started on Ciprofloxacin for a UTI. She started Ciprofloxacin yesterday. She then developed a headache that is not like her normal migraines and N/V, photophobia, and dizziness. Normal migraines for her are around her eyes and sharp but this migraine includes the eyes, forehead, and back of the neck/head. She describes this as a throbbing sensation and largely kept eyes closed/covered during exam. She reports associated diarrhea but states this has been going on for about a week. Today, she presented to an urgent center and was brought to the ED for BP of 75/47 and a largely sedated affect. At time of exam patient appears ill and complains of a headache and photophobia. She does not appear to be sedated and is following commands and answering questions appropriately. 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 She denies illicit drugs or narcotic use. She has been on clonazepam 1 mg 3 times a day for a long period of time. Over the past couple days she has only taken this medication once a day as she missed her appointment to get a new prescription. She was reviewed and the drug monitoring program and no problems noted in [place]. In [place], she has received multiple prescriptions for opiates and short durations of time however nothing recently other than prescribed by our ED. In the ED, she is afebrile and without leukocytosis. She remained hypotensive. Head CT was negative for acute findings. Tox screen was negative except for benzodiazepines. UA with moderate leuks and 1+ bacteria with culture pending. Past Medical/Surgical History Medical Problems: (1) History of kidney stones Status: Chronic (2) History of ovarian cyst Status: Chronic Surgical Problems: (1) Hx of tonsillectomy Status: Resolved (2) SBO (small bowel obstruction) Status: Resolved Family History Patient reports no known family medical history. Social History Smoking Status: Former Smoker Smokeless Tobacco Use: No Alcohol Use: socially Drug Use: none Marital Status: single Occupational Status: student Immunizations History of Influenza Vaccine: Unknown History of Tetanus Vaccine?: Unknown History of Pneumococcal: Unknown History of Hepatitis B Vaccine: Unknown Multi-Drug Resistant Organisms History of MDRO: No Allergies Coded Allergies: Metoclopramide (Verified Adverse Reaction, Intermediate, panic attacks, ) Prochlorperazine (Verified Adverse Reaction, Intermediate, panic attack, ) Sulfa Antibiotics (Verified Adverse Reaction, Intermediate, vomiting, 12/05) Ceftriaxone (Verified Adverse Reaction, Mild, CLAIMED FELT SKIN CRAWL; FIRE ANTS, 12/05/16) Home Medications Scheduled Ciprofloxacin (Cipro), 250 MG PO BID Clonazepam (Klonopin), 1 MG PO TID Clonidine Hcl (Catapres), 0.2 MG PO HS Duloxetine HCl (Cymbalta), 30 MG PO HS Lamotrigine (Lamictal), 100 MG PO HS Norethindrone & Eth Estradiol (Necon ), 1 TAB PO HS Pramipexole Dihydrochloride (Mirapex), 0.5 MG PO HS Scheduled PRN Rizatriptan Benzoate (Maxalt), 10 MG PO UD PRN for Migraine Review of Systems Constitutional: + fatigue, No fever, No chills Eyes: + eye pain, + problem reported (sensitivity to light), No worsening of vision ENT: + sore throat, No nasal symptoms, No trouble swallowing Respiratory: No cough, No sputum, No wheezing, No shortness of breath Cardiovascular: No chest pain, No palpitations Abdomen: + pain (suprapubic and R flank), + nausea, + vomiting, + diarrhea, No GI bleeding Musculoskeletal: No swelling, No calf pain Genitourinary - Female: + dysuria, + vaginal discharge (white, thick) Hematologic / Lymphatic: No abnormal bleeding/bruising, No clotting problems Integumentary: No rash Physical Exam Vital Signs Date Time Temp Pulse Resp B/P (MAP) Pulse Ox O2 Delivery O2 Flow Rate FiO2 12/05/16 14:59 70 18 105/63 98 12/05/16 13:04 55 18 104/61 100 Room Air 12/05/16 12:00 88/42 12/05/16 11:54 51 18 100 Room Air 12/05/16 11:35 99 Room Air 12/05/16 11:05 60 12/05/16 11:00 103/62 12/05/16 10:38 36.7 70 16 75/47 94 Room Air General Appearance: WD/WN, no apparent distress, + pertinent finding (mostly talking with eyes closed/covered with hand; speech clear and making eye contact ; following commands and talking appropriately) Head: normocephalic, atraumatic Eyes: sclerae normal ENT: hearing grossly normal Neck: supple, no JVD, trachea midline Respiratory/Chest: lungs clear, normal breath sounds, no respiratory distress, no accessory muscle use Cardiovascular: regular rate, rhythm, no gallop, no murmur Abdomen/GI: normal bowel sounds, soft, + tenderness (suprapubic) Back: + right CVA tenderness Extremities/Musculoskelatal: no calf tenderness, no pedal edema Neurologic/Psych: alert, oriented x 3 Skin: normal color, warm/dry Diagnostics Laboratory Results Results Past 24 Hours Test 12/05/16 10:58 12/05/16 11:28 12/05/16 11:38 Range/Units White Blood Count 10.63 4.8-10.8 K/uL Red Blood Count 4.15 4.2-5.4 M/uL Hemoglobin 12.9 12.0-16.0 g/dL Hematocrit 39.1 37-47 % Mean Corpuscular Volume 94.2 80-100 fL Mean Corpuscular Hemoglobin 31.1 25-34 pg Mean Corpuscular Hemoglobin Concent 33.0 32-36 g/dl Platelet Count 406 130-400 K/uL Mean Platelet Volume 9.9 7.4-10.4 fL Neutrophils (%) (Auto) 66.6 % Lymphocytes (%) (Auto) 24.1 % Monocytes (%) (Auto) 7.9 % Eosinophils (%) (Auto) 0.8 % Basophils (%) (Auto) 0.3 % Neutrophils # (Auto) 7.08 1.4-6.5 K/uL Lymphocytes # (Auto) 2.56 1.2-3.4 K/uL Monocytes # (Auto) 0.84 0.11-0.59 K/uL Eosinophils # (Auto) 0.09 0-0.5 K/uL Basophils # (Auto) 0.03 0-0.2 K/uL RDW Standard Deviation 47.1 36.4-46.3 fL RDW Coefficient of Variation 13.6 11.5-14.5 % Immature Granulocyte % (Auto) 0.3 % Immature Granulocyte # (Auto) 0.03 0.00-0.02 K/uL Prothrombin Time 10.7 9.0-12.0 SECONDS Prothromb Time International Ratio 1.0 0.9-1.1 Activated Partial Thromboplast Time 22.9 21.0-31.0 SECONDS Partial Thromboplastin Ratio 0.9 Sodium Level 139 136-145 mmol/L Potassium Level 4.1 3.5-5.1 mmol/L Chloride Level 105 98-107 mmol/L Carbon Dioxide Level 25 21-32 mmol/L Anion Gap 9.0 3-11 mmol/L Blood Urea Nitrogen 10 7-18 mg/dl Creatinine 0.88 0.60-1.20 mg/dl Estimated GFR () 101.5 Estimated GFR (Non- 87.6 BUN/Creatinine Ratio 10.8 10-20 Random Glucose 109 70-99 mg/dl Calcium Level 9.2 8.5-10.1 mg/dl Magnesium Level 2.1 1.8-2.4 mg/dl Total Bilirubin 0.4 0.2-1 mg/dl Aspartate Amino Transf (AST/SGOT) 16 15-37 U/L Alanine Aminotransferase (ALT/SGPT) 27 12-78 U/L Alkaline Phosphatase 74 45-117 U/L Total Creatine Kinase 46 26-192 U/L Creatine Kinase MB < 0.5 0.5-3.6 ng/ml Creatine Kinase MB Ratio 0-3.0 Total Protein 7.7 6.4-8.2 gm/dl Albumin 3.8 3.4-5.0 gm/dl Globulin 3.9 2.5-4.0 gm/dl Albumin/Globulin Ratio 1.0 0.9-2 Thyroid Stimulating Hormone (TSH) 1.300 0.300-4.500 uIu/ml Salicylates Level < 1.7 2.8-20 mg/dl Acetaminophen Level < 2 10-30 ug/ml Venous Blood pH 7.37 7.36-7.41 Venous Blood Partial Pressure CO2 47 38.0-50.0 mmHg Venous Blood Partial Pressure O2 23 mmHg Venous Blood HCO3 27 mmol/L Venous Blood Oxygen Saturation < 60.0 % Venous Blood Base Excess 0.9 mEq/L Ethyl Alcohol mg/dL < 3.0 0-3 mg/dl Urine Color DK YELLOW Urine Appearance CLOUDY CLEAR Urine pH 6.5 4.5-7.5 Urine Specific Browns 1.026 1.000-1.030 Urine Protein 1+ NEG Urine Glucose (UA) NEG NEG Urine Ketones TRACE NEG Urine Occult Blood NEG NEG Urine Nitrite NEG NEG Urine Bilirubin NEG NEG Urine Urobilinogen NEG NEG Urine Leukocyte Esterase MODERATE NEG Urine WBC (Auto) 10-30 0-5 /hpf Urine RBC (Auto) 5-10 0-4 /hpf Urine Hyaline Casts (Auto) 5-10 0-5 /lpf Urine Epithelial Cells (Auto) >30 0-5 /lpf Urine Bacteria (Auto) 1+ NEG Urine Test NEG NEG Urine Opiates Screen NEG NEG Urine Methadone, Qualitative NEG NEG Urine Barbiturates NEG NEG Urine Phencyclidine (PCP) Level NEG NEG Ur Amphetamine/Methamphetamine NEG NEG MDMA (Ecstasy) Screen NEG NEG Urine Benzodiazepines Screen POS NEG Urine Cocaine Metabolite NEG NEG Urine Marijuana (THC) NEG NEG Microbiology Results 12/05/16 Urine Culture, Received Pending Diagnostic Radiology CT OF THE HEAD WITHOUT CONTRAST FINDINGS: No acute intracranial hemorrhage, midline shift or mass effect is present. Ventricular system is normal. Basilar cisterns are patent. There are no extra-axial collections. Aaron-white differentiation is maintained. There are no findings to suggest acute dural sinus thrombosis or acute territorial infarct. There are no significant calvarial abnormalities. Minimal secretions within the right sphenoid and right maxillary sinuses are present. IMPRESSION: No acute intracranial findings. EKG Sinus bradycardia with sinus arrhythmia Otherwise normal ECG No previous ECGs available Confirmed by HANG SHELTON MD ([id number]) on 12/05/2016 2:51:38 PM Impression Assessment and Plan Ms. Aviles is a 31 y/o female with PMHx of Migraine Headaches, Nephrolithiasis , Frequent Ovarian Cysts, and recent Pelvic Inflammatory Disease who presents to the ED complaining of headache, dizziness, N/V, and diarrhea starting last night. N/V/D: Migraine vs Dehydration vs Benzodiazepine Withdrawal - NSS x 1 L bolus and continue NSS at 125 mL/hr - BP improving but lower than baseline - normal 120-130 systolic per patient - Continue Klonopin 1 mg TID - would likely benefit from reduction but likely will need slow taper - she denies abrupt cessation but has been taking a reduced dose over the past couple days - Lamictal 100 mg daily and Maxalt 10 mg daily PRN - Toradol 15 mg IV Q6H PRN and Tramadol 50 mg PRN - Obtain C. diff due to diarrhea in setting of recent antibiotics Altered Mental Status: Hypotension vs Withdrawal vs Migraine - Per report patient was lethargic and making minimal eye contact which seemed to resolve during my exam - she did receive Narcan in ED without effect - likely this was more related to her migraine as she did express signs of photophobia - BP improved with hydration and will continue NSS as above - Tox screen negative except for benzodiazepines Possible Urinary Tract Infection: R Flank Pain and Suprapubic Pain - Hold Cipro and cover with Ceftriaxone 1 g IV daily - await UCx - Will obtain new renal U/S - 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 -- Has had numerous studies over the past month without abnormal findings other than R ovarian cyst Recent Pelvic Inflammatory Disease and Trichomonas - Possible Yeast Infection: - She reports follow-up on Sunday with [facility] related to above and R ovarian cyst - Diflucan 150 mg x 1 dose and Nystatin oral susp - Did not perform vaginal exam - may be warranted Anxiety: - Clonidine 0.2 mg daily and Cymbalta 30 mg daily DVT Prophylaxis: SCDs; Ambulation Disposition: - Hydrate overnight - if feeling better likely D/C in 1-2 days - Questionable narcotic Rx from [place] but nothing since August 2016 until recent Rx from our ED Attending Addendum: I have physically seen and examined this patient, have directed the physician assistants medical activities, and agree with the H&P as noted above with the following exceptions as noted. The patient is awake, well-developed and adequately nourished, alert and oriented 3, normocephalic and atraumatic, lying in bed and in no acute distress. HEENT--PERRL, EOMI, mucous membranes and oropharynx dry. Neck--supple, no JVD or bruits, thyroid normal, trachea midline, no adenopathy. Heart--normal S1 and S2, no extra beats, no murmurs, rubs or gallops. Lungs--clear bilaterally with good air movement, no respiratory distress, no accessory muscle use. Abdomen--normal bowel sounds and soft, suprapubic tenderness, right CVA tenderness, nondistended, no hernias or masses, no organomegaly. Extremities--no cyanosis, clubbing or edema. There are good distal pulses b/l. Dermatologic--normal skin turgor, normal color, warm and dry, no abnormal lymph nodes, no rash. Neurologic--cranial nerves II through XII grossly intact, motor and sensory examination normal. Rheumatologic--normal range of motion, nontender, muscles and joints. Psychiatric--normal affect. Assessment and Plan: 1. Altered mental status/migraine/hypotension-- 1 L normal saline bolus followed by 125 ML's per hour. Klonopin 1 mg by mouth 3 times a day. Lamictal 100 mg by mouth daily. Maxalt 10 mg by mouth daily when necessary Toradol 15 mg IV every 6 hours when necessary severe pain. Tramadol 50 mg by mouth every 4 hours when necessary moderate pain. Possible UTI--place on ceftriaxone 1 g IV daily and check renal ultrasound. Level of Care Med/Surg Advanced Directives Existing Advance Directive: No Existing Living Will: No Existing Power of Public Opinion Survey Taker: No Resuscitation Status FULL RESUSCITATION VTE Prophylaxis VTE Risk Assessment Done? Y/N: Yes Risk Level: Moderate Given or contraindicated: T.E.D. Stockings, SCD's Social Service Consult None Apply
[2016-12-05] MEDS: ONDANSETRON INJ 2 MG/ML 2 ML VIAL IV PRN ×2 (15:35→18:09)
--- NOTE | 2016-12-05 16:25 | DIAGNOSTIC IMAGING REPORT ---
CT OF THE HEAD WITHOUT CONTRAST CLINICAL HISTORY: Headache. Lethargic. COMPARISON STUDY: No previous studies for comparison. CT DOSE: 638.56 mGycm TECHNIQUE: Helical axial images of the head were obtained without IV contrast. Automated exposure control was utilized for the study. A dose lowering technique was utilized adhering to the principles of ALARA. FINDINGS: No acute intracranial hemorrhage, midline shift or mass effect is present. Ventricular system is normal. Basilar cisterns are patent. There are no extra-axial collections. Aaron-white differentiation is maintained. There are no findings to suggest acute dural sinus thrombosis or acute territorial infarct. There are no significant calvarial abnormalities. Minimal secretions within the right sphenoid and right maxillary sinuses are present. IMPRESSION: No acute intracranial findings. Electronically signed by: Rafael Coyle M.D. 12/05/2016 4:23 PM Dictated Date/Time: 12/05/2016 4:21 PM
[2016-12-05] MEDS: ACETAMINOPHEN 325 MG TAB PO PRN (16:49)
[2016-12-05] MEDS ORDERED: FLUCONAZOLE 50 MG TAB PO ONE (17:00)
[2016-12-05 17:27] VITALS: BP 101/61; PULSE 56; TEMP 37.2; O2SAT 100; Ht 162.6 cm; Wt 82.0 kg
[2016-12-05] MEDS ORDERED: NURSING VERBAL MED ORDER ONE ×3 (18:00→22:45)
[2016-12-05] MEDS: SODIUM CHLORIDE 0.9% 1000ML 1,000 ML IV SCH ×2 (18:06→23:23)
[2016-12-05] MEDS: TRAMADOL HCL 50 MG TAB PO PRN (18:08)
--- NOTE | 2016-12-05 19:26 | DIAGNOSTIC IMAGING REPORT ---
RENAL ULTRASOUND CLINICAL HISTORY: Right flank pain. COMPARISON STUDY: Renal ultrasound November 14, [address] of the abdomen and pelvis December 02, 2016. TECHNIQUE: Sonography of the kidneys and the urinary bladder was performed. FINDINGS: The right kidney measures 11.8 x 4.8 x 5.5 cm and the left measures 13 x 5.8 x 6.2 cm. There is no hydronephrosis. No calculi are identified. Note is made of a 1.4 cm cyst within the inferior aspect of the right renal sinus. An equivocal left renal lesion is artifactual as no lesion was shown on CT of December 02, 2016. Both ureteral jets were identified. IMPRESSION: No hydronephrosis. Electronically signed by: Rafael Coyle M.D. 12/05/2016 7:25 PM Dictated Date/Time: 12/05/2016 7:22 PM
[2016-12-05 20:05] VITALS: O2SAT 99
[2016-12-05 20:19] VITALS: BP 122/78; PULSE 57; TEMP 37.1
[2016-12-05] MEDS: NYSTATIN SUSP 500,000 U/5 ML UDC PO SCH ×2 (21:00→21:57)
[2016-12-05] MEDS: CEFTRIAXONE SOD INJ 1 GM in DEXTROSE 5% ADD-VANTAGE 50ML 50 ML IV SCH (21:56)
[2016-12-05] MEDS: PRAMIPEXOLE DIHYDROCHLORIDE 0.5 MG TAB PO SCH (22:00)
[2016-12-05] MEDS: DULOXETINE (CYMBALTA) 30 MG CAP PO SCH (22:00)
[2016-12-05] MEDS ORDERED: KETOROLAC TROMETHAMINE 30 MG/ML VIAL IV. ONE (22:00)
[2016-12-05] MEDS: CLONIDINE HCL 0.1 MG TAB PO SCH (22:01)
[2016-12-05] MEDS: CLONAZEPAM 1 MG TAB PO SCH (22:13)
[2016-12-05 22:30] VITALS: BP 137/82; PULSE 68; TEMP 37.1
[2016-12-05] MEDS ORDERED: DiphenhydrAMINE HCL 50 MG/ML VIAL IV SCH (23:00)
[2016-12-06 01:26] VITALS: BP 121/75; PULSE 79; TEMP 37.2; O2SAT 97
[2016-12-06] MEDS: KETOROLAC TROMETHAMINE 15 MG/ML VIAL IV PRN ×2 (05:26→18:26)
[2016-12-06 05:39] VITALS: BP 97/56; PULSE 50; TEMP 37.3; O2SAT 97
[2016-12-06 07:34] VITALS: BP 104/60; PULSE 50; TEMP 36.8; O2SAT 98
[2016-12-06] MEDS: SODIUM CHLORIDE 0.9% 1000ML 1,000 ML IV SCH ×3 (07:44→23:51)
[2016-12-06] MEDS: TRAMADOL HCL 50 MG TAB PO PRN ×3 (07:48→19:48)
[2016-12-06 08:00] VITALS: O2SAT 98
[2016-12-06 08:12] LABS: HEMATOCRIT 32.8 % (37-47); MEAN CELL VOLUME 96.5 fL (80-100); MEAN CORPUSCULAR HEMOGLOBIN 30.6 pg (25-34); MEAN CORPUSCULAR HGB CONC 31.7 g/dl (32-36); MEAN PLATELET VOLUME 9.8 fL (7.4-10.4); PLATELET COUNT 315 K/uL (130-400); WHITE BLOOD COUNT 8.33 K/uL (4.8-10.8)
[2016-12-06] MEDS: NYSTATIN SUSP 500,000 U/5 ML UDC PO SCH ×4 (08:30→21:06)
[2016-12-06] MEDS: CLONAZEPAM 1 MG TAB PO SCH ×3 (08:30→21:06)
[2016-12-06 08:43] LABS: BUN/CREATININE RATIO 9.7 (10-20); CALCIUM 8.3 mg/dl (8.5-10.1); CREATININE 0.65 mg/dl (0.60-1.20)
[2016-12-06] MEDS: ACETAMINOPHEN 325 MG TAB PO PRN (10:45)
[2016-12-06] MEDS: MoRPHine SULFATE 2 MG/ML CARP IV PRN ×2 (11:36→15:13)
--- NOTE | 2016-12-06 12:09 | DIAGNOSTIC IMAGING REPORT ---
ABD/PELVIS WITHOUT FOR STONE HISTORY: 31 years-old Female hx of kidney stone, right flank pain COMPARISON: CT abdomen and pelvis 12/02/2016, renal ultrasound 12/05/2016. TECHNIQUE: Multiple axial CT images of the abdomen and pelvis were obtained without contrast. A dose lowering technique was used consistent with the principals of ANNA MARIE. FINDINGS: Lung bases are generally clear. No pneumoperitoneum. The imaged inferior cardiac chambers are unremarkable. The liver, gallbladder, spleen, pancreas and adrenal glands are within normal limits. 8 mm cyst of the inferior pole right kidney is seen. There is no renal calculi or hydronephrosis. The ureters and urinary bladders are unremarkable. Uterus and adnexa are within normal limits. There is trace free pelvic fluid, likely physiologic. The abdominal aorta is normal in course and caliber. No bulky adenopathy. There is no bowel obstruction. Retained oral contrast is seen within the colon and appendix. No evidence of acute appendicitis. Soft tissues are unremarkable. Bones appear intact. IMPRESSION: 1. No acute intra-abdominal or intrapelvic abnormality identified, specifically no renal calculi or hydronephrosis. 2. Normal appendix. 3. Trace free pelvic fluid, likely physiologic. The above report was generated using voice recognition software. It may contain grammatical, syntax or spelling errors. Electronically signed by: Malcolm Bowles M.D. 12/06/2016 12:08 PM Dictated Date/Time: 12/06/2016 12:02 PM
--- NOTE | 2016-12-06 14:19 | Progress Note ---
Subjective Date of Service: Dec 06, 2016. Subjective Pt evaluation today including: conversation w/ patient, physical exam, chart review, lab review, review of studies, review of inpatient medication list Reports right sided flank pain radiation to groin, worse than yesterday No fevers or chills Reports nausea, vomiting, diarrhea resolved Problem List Medical Problems: (1) Abdominal pain Status: Acute (2) Cervicitis Status: Acute (3) Diarrhea Status: Acute (4) Dizziness Status: Acute (5) Headache Status: Acute (6) Headache Status: Acute (7) Ovarian cyst Status: Acute (8) Ovarian cyst Status: Acute (9) PID (acute pelvic inflammatory disease) Status: Acute (10) Right lower quadrant abdominal pain Status: Acute (11) Right sided abdominal pain Status: Acute (12) UTI (urinary tract infection) Status: Acute (13) Vaginitis Status: Acute Review of Systems Constitutional: No fever, No chills, No sweats, No weakness ENT: No hearing loss, No unusual epistaxis, No nasal symptoms, No sore throat Respiratory: No cough, No sputum, No wheezing, No shortness of breath, No dyspnea on exertion Cardiac: No chest pain, No orthopnea, No PND, No edema, No claudication Abdomen: No pain, No nausea, No vomiting, No diarrhea, No constipation Musculoskeletal: + muscle pain, No joint pain, No swelling, No calf pain Female : No dysuria, No urinary frequency, No hematuria, No incontinence Neurologic: No memory loss, No paralysis, No weakness, No numbness/tingling Psychiatric: No depression symptoms, No anhedonism, No anxiety, No insomnia Endo: No fatigue, No excessive thirst Skin: No rash, No itch Objective Vital Signs Date Time Temp Pulse Resp B/P (MAP) Pulse Ox O2 Delivery O2 Flow Rate FiO2 12/06/16 08:00 Room Air 12/06/16 08:00 98 Room Air 12/06/16 07:34 36.8 50 16 104/60 (75) 98 Room Air 12/06/16 05:39 37.3 50 18 97/56 (70) 97 Room Air 12/06/16 04:05 Room Air 12/06/16 01:26 37.2 79 18 121/75 (90) 97 Room Air 12/06/16 00:05 Room Air 12/05/16 22:30 37.1 68 18 137/82 (100) 12/05/16 20:19 37.1 57 122/78 (93) 12/05/16 20:05 99 Room Air 12/05/16 17:27 37.2 56 16 101/61 100 Room Air 12/05/16 16:51 59 15 111/73 99 Room Air 12/05/16 15:40 53 14 96/55 98 Room Air 12/05/16 14:59 70 18 105/63 98 Physical Exam General Appearance: WD/WN, + mild distress Eyes: normal inspection, PERRL, EOMI, sclerae normal ENT: normal ENT inspection, hearing grossly normal, TMs normal, pharynx normal Neck: supple, no adenopathy, thyroid normal, no JVD Respiratory/Chest: chest non-tender, lungs clear, normal breath sounds, no respiratory distress Cardiovascular: regular rate, rhythm, no edema, no gallop, no JVD Abdomen: non tender, soft, no organomegaly, no pulsatile mass Extremities: non-tender, normal inspection, no pedal edema, no calf tenderness Neurologic/Psychiatric: no motor/sensory deficits, alert, normal mood/affect, oriented x 3 Laboratory Results Last 24 Hours Test 12/06/16 07:23 White Blood Count 8.33 K/uL Red Blood Count 3.40 M/uL Hemoglobin 10.4 g/dL Hematocrit 32.8 % Mean Corpuscular Volume 96.5 fL Mean Corpuscular Hemoglobin 30.6 pg Mean Corpuscular Hemoglobin Concent 31.7 g/dl RDW Standard Deviation 47.9 fL RDW Coefficient of Variation 13.7 % Platelet Count 315 K/uL Mean Platelet Volume 9.8 fL Sodium Level 142 mmol/L Potassium Level 4.0 mmol/L Chloride Level 111 mmol/L Carbon Dioxide Level 23 mmol/L Anion Gap 8.0 mmol/L Blood Urea Nitrogen 6 mg/dl Creatinine 0.65 mg/dl Est Creatinine Clear Calc Drug Dose 129.9 ml/min Estimated GFR () 137.1 Estimated GFR (Non- 118.3 BUN/Creatinine Ratio 9.7 Random Glucose 84 mg/dl Calcium Level 8.3 mg/dl Assessment and Plan Pt is a 31 y/o female with PMHx of Migraine Headaches, Nephrolithiasis, Frequent Ovarian Cysts, and recent Pelvic Inflammatory Disease who presents to the ED complaining of headache, dizziness, N/V, and diarrhea starting last night. N/V/D: Nephrolithiasis vs Migraine vs Dehydration vs Benzodiazepine Withdrawal - Will obtain CT abd/pelvis, pt reports mult kidney stones this yr and states recent extraction back in june and july 2016, states stones never appeared on previous CT scans and gives consent to obtain records from Dr. Joaquín Childers, urologist in [place], [place]. - NSS x 1 L bolus and continue NSS at 125 mL/hr - BP still low - normal 120-130 systolic per patient - Continue Klonopin 1 mg TID - would likely benefit from reduction but likely will need slow taper - she denies abrupt cessation but has been taking a reduced dose over the past couple days - Lamictal 100 mg daily and Maxalt 10 mg daily PRN - Toradol 15 mg IV Q6H PRN and Tramadol 50 mg PRN, also added morphine 1 mg IV q 3 hrs PRN pain - Obtain C. diff due to diarrhea in setting of recent antibiotics Altered Mental Status: Hypotension vs Withdrawal vs Migraine - Per report patient was lethargic and making minimal eye contact which seemed to resolve during my exam - she did receive Narcan in ED without effect - likely this was more related to her migraine as she did express signs of photophobia - BP improved with hydration and will continue NSS as above - Tox screen negative except for benzodiazepines Possible Urinary Tract Infection: R Flank Pain and Suprapubic Pain - Hold Cipro and cover with Ceftriaxone 1 g IV daily - await UCx - Will obtain new renal U/S - 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 - Has had numerous studies over the past month without abnormal findings other than R ovarian cyst Recent Pelvic Inflammatory Disease and Trichomonas - Possible Yeast Infection: - She reports follow-up on Sunday with [facility] related to above and R ovarian cyst - Diflucan 150 mg x 1 dose and Nystatin oral susp - Did not perform vaginal exam - may be warranted Anxiety: - Clonidine 0.2 mg daily and Cymbalta 30 mg daily DVT Prophylaxis: SCDs; Ambulation
[2016-12-06 15:33] VITALS: BP 134/83; PULSE 78; TEMP 36.7; O2SAT 99
--- NOTE | 2016-12-06 16:23 | Urology Consultation ---
History General Date of Service: Dec 06, 2016. Chief Complaint: right flank pain Primary Care Physician: [facility] Pt seen a urologist before?: Yes If yes, why?: flank pain, possible stones History of Present Illness I am asked by Edy Dacosta to evaluate and treat patient for right flank pain. She is admitted via ER. She has had 7 other er visits this month. She reports she has had stone in past treated in [place]. Her ct done shows no hydro , no stranding around the kidney and no stones. Her urine similarly has no blood no nitrates. Her collection technique is poor at there are 30 epithelial cells so it is contaminated. She reports weak stream. She reports right flank pain. She reports the pain radiates around to the right abdomen towards the top of the bladder. Her nausea and emesis and diarrhea have resolved since admission. Imaging Imaging: CT Laboratory Results Past 24 Hours Test 12/06/16 07:23 Range/Units White Blood Count 8.33 4.8-10.8 K/uL Red Blood Count 3.40 4.2-5.4 M/uL Hemoglobin 10.4 12.0-16.0 g/dL Hematocrit 32.8 37-47 % Mean Corpuscular Volume 96.5 80-100 fL Mean Corpuscular Hemoglobin 30.6 25-34 pg Mean Corpuscular Hemoglobin Concent 31.7 32-36 g/dl RDW Standard Deviation 47.9 36.4-46.3 fL RDW Coefficient of Variation 13.7 11.5-14.5 % Platelet Count 315 130-400 K/uL Mean Platelet Volume 9.8 7.4-10.4 fL Sodium Level 142 136-145 mmol/L Potassium Level 4.0 3.5-5.1 mmol/L Chloride Level 111 98-107 mmol/L Carbon Dioxide Level 23 21-32 mmol/L Anion Gap 8.0 3-11 mmol/L Blood Urea Nitrogen 6 7-18 mg/dl Creatinine 0.65 0.60-1.20 mg/dl Est Creatinine Clear Calc Drug Dose 129.9 ml/min Estimated GFR () 137.1 Estimated GFR (Non- 118.3 BUN/Creatinine Ratio 9.7 10-20 Random Glucose 84 70-99 mg/dl Calcium Level 8.3 8.5-10.1 mg/dl Labs were reviewed and are within normal limits unless listed below. Labs are available in the chart and at [facility] Problem List Medical Problems: (1) Abdominal pain Status: Acute (2) Cervicitis Status: Acute (3) Diarrhea Status: Acute (4) Dizziness Status: Acute (5) Headache Status: Acute (6) Headache Status: Acute (7) Ovarian cyst Status: Acute (8) Ovarian cyst Status: Acute (9) PID (acute pelvic inflammatory disease) Status: Acute (10) Right lower quadrant abdominal pain Status: Acute (11) Right sided abdominal pain Status: Acute (12) UTI (urinary tract infection) Status: Acute (13) Vaginitis Status: Acute Past History fibromyalgia Pt had a problem w anesthesia?: No Past Surgical History: other (ureteroscopy in [place]) Family History Patient reports no known family medical history. dad and maternal aunt have stones mother had gastric cancer which could not be operated on so was treated with radiation 5 yrs ago and she is NICOLE. Social History Hx Tobacco Use In Past Year?: No Smoking: non-smoker Alcohol: never Drug use: none Marital status: single Housing status: lives alone Occupation status: student Allergies Coded Allergies: Metoclopramide (Verified Adverse Reaction, Intermediate, panic attacks, ) Prochlorperazine (Verified Adverse Reaction, Intermediate, panic attack, ) Sulfa Antibiotics (Verified Adverse Reaction, Intermediate, vomiting, 12/05) Ceftriaxone (Verified Adverse Reaction, Mild, CLAIMED FELT SKIN CRAWL; FIRE ANTS, 12/05/16) Medications Home Medications: Home Meds and Scripts Medications Dose Route/Sig Max Daily Dose Days Date Category Dose Instructions Cipro (Ciprofloxacin) 250 Mg Tab 250 Mg PO BID 7 12/02/16 Rx Maxalt (Rizatriptan Benzoate) 10 Mg Tab 10 Mg PO UD PRN 12/02/16 Reported TAKE ONE TABLET AT ONSET OF MIGRAINE HEADACHE, MAY REPEAT AFTER 2 HOURS IF NEEDED. TAKE NO MORE THAN 2 TABLETS/24 HOURS Necon -28 (Norethindrone & Eth Estradiol) 1 Tab Tab 1 Tab PO HS 28 11/14/16 Reported Klonopin (Clonazepam) 1 Mg Tab 1 Mg PO TID 11/14/16 Reported Mirapex (Pramipexole Dihydrochloride) 0.5 Mg Tab 0.5 Mg PO HS 11/14/16 Reported Lamictal (Lamotrigine) 100 Mg Tab 100 Mg PO HS 11/14/16 Reported Catapres (Clonidine Hcl) 0.2 Mg Tab 0.2 Mg PO HS 11/14/16 Reported Cymbalta (Duloxetine HCl) 30 Mg Cap 30 Mg PO HS 11/14/16 Reported Inpatient Medications: Current Inpatient Medications Medications (Trade) Dose Ordered Sig/Radha Route Start Time Stop Time Status Last Admin Dose Admin Acetaminophen (Tylenol Tab) 650 mg Q4H PRN PO 12/05/16 15:00 01/04/17 14:59 12/06/16 10:45 650 MG Al Hydrox/Mg Hydrox/Simethicone (Maalox Max Susp) 15 ml Q4H PRN PO 12/05/16 15:00 01/04/17 14:59 Magnesium Hydroxide (Milk Of Magnesia Susp) 30 ml Q6H PRN PO 12/05/16 15:00 01/04/17 14:59 Polyethylene (Miralax Powder Packet) 17 gm DAILY PRN PO 12/05/16 15:00 01/04/17 14:59 Ondansetron HCl (Zofran Inj) 4 mg Q6H PRN IV 12/05/16 15:00 01/04/17 14:59 12/05/16 18:09 4 MG Clonazepam (Klonopin Tab) 1 mg TID PO 12/05/16 21:00 01/04/17 20:59 12/06/16 13:27 1 MG Duloxetine HCl (Cymbalta Cap) 30 mg HS PO 12/05/16 21:00 01/04/17 20:59 12/05/16 22:00 30 MG Lamotrigine (Lamictal Tab) 100 mg HS PO 12/05/16 21:00 01/04/17 20:59 12/05/16 22:01 100 MG Pramipexole Dihydrochloride (miraPEX TAB) 0.5 mg HS PO 12/05/16 21:00 01/04/17 20:59 12/05/16 22:00 0.5 MG Rizatriptan Benzoate (Maxalt Tab) 10 mg DAILY PRN PO 12/05/16 15:00 01/04/17 14:59 Clonidine HCl (Catapres Tab) 0.2 mg HS PO 12/05/16 21:00 01/04/17 20:59 12/05/16 22:01 0.2 MG Ceftriaxone Sodium 1 gm/ Dextrose 50 ml @ 100 mls/hr DAILY@1800 IV 12/05/16 18:00 12/10/16 17:59 12/05/16 21:56 100 MLS/HR Miscellaneous (Iv Fluids Completed) 1 ea PRN PRN N/A 12/05/16 15:15 12/05/17 15:14 Sodium Chloride 1,000 ml @ 125 mls/hr Q8H IV 12/05/16 15:30 01/04/17 15:29 12/06/16 15:17 125 MLS/HR Nystatin (Mycostatin Susp) 5 ml QID PO 12/05/16 17:00 12/15/16 16:59 12/06/16 13:24 5 ML Ketorolac Tromethamine (Toradol Inj) 15 mg Q6H PRN IV 12/05/16 15:45 12/10/16 15:44 12/06/16 05:26 15 MG Tramadol HCl (Ultram Tab) 50 mg Q4H PRN PO 12/05/16 18:00 01/04/17 17:59 12/06/16 13:24 50 MG Morphine Sulfate (MoRPHine SULFATE INJ) 1 mg Q3HWA PRN IV 12/06/16 11:00 12/20/16 10:59 12/06/16 15:13 1 MG Review of Systems Review of Systems Constitutional: + frequent headaches, No fever, No chills Eyes: + blurred vision Neurological: + dizzy, + numbness/tingling (hands and feet often get numb but the right hand has been severely numb since Sunday) Endocrine: + tired/sluggish Gastrointestinal: + abdominal pain, + indigestion, + nausea, + vomiting, + diarrhea Cardiovascular: + chest pain, No swelling ankles/feet Respiratory: + shortness of breath, No coughing up blood, No chronic cough Skin: + problem reported (skin burned during the ceftriaxone infusion), No rash Musculoskeletal: + joint pain Female : + frequent urination, + painful urination, + weak stream, + kidney stones Physical Exam Vital Signs: Vital Signs Past 12 Hours Date Time Temp Pulse Resp B/P (MAP) Pulse Ox O2 Delivery O2 Flow Rate FiO2 12/06/16 15:33 36.7 78 18 134/83 (100) 99 Room Air 12/06/16 08:00 Room Air 12/06/16 08:00 98 Room Air 12/06/16 07:34 36.8 50 16 104/60 (75) 98 Room Air 12/06/16 05:39 37.3 50 18 97/56 (70) 97 Room Air 12/06/16 04:05 Room Air Physical Exam: General Appearance: WD/WN, no apparent distress, + obese, + pertinent finding ( she is in no physical istress but is tearful thru the interview) Eyes: bilateral eyes normal inspection ENT: hearing grossly normal Neck: supple, no JVD, trachea midline Respiratory/Chest: no accessory muscle use Gastrointestinal: Abdomen: normal abdomen, pertinent finding (no rebound no guarding, no mass) Bladder: normal bladder Renal: normal renal Extremities: non-tender, normal inspection, no pedal edema, no calf tenderness Neurologic/Psychiatric: alert, normal mood/affect, oriented x 3 Skin: normal color, warm/dry, no rash Lymphatic: no adenopathy, + pertinent finding (when I palapte the supraclavicular areas she grimaces. when I palpate the cervical neck nodes she grimaces, when I palapte the axilla she grimaces. ) Assessment & Plan Assessment & Plan pain No source despite extensive testing. I reviewed her ct images and report and ultrasound report. If she had radio-lucent stones as source of her pain there would STILL be other signs of obstruction like hydro and stranding in the fat around the kidneys and blood in the urine. Her kidneys are perfectly healthy bilaterally. I am happy to review any records from her [place] urologist but I feel comfortable that no surgical urologic intervention is needed at this time. I suggest stopping antibiotics unless we get a convincing culture from the outside clinic. I carefully described how to give a clean mid stream urine for future samples. She says she carries diagnosis of fibromyalgia. perhaps a specialist in this area might have ideas on how best to manage her pain.
[2016-12-06] MEDS: CEFTRIAXONE SOD INJ 1 GM in DEXTROSE 5% ADD-VANTAGE 50ML 50 ML IV SCH ×2 (17:28→17:39)
[2016-12-06] MEDS: ONDANSETRON INJ 2 MG/ML 2 ML VIAL IV PRN (19:47)
[2016-12-06] MEDS: PRAMIPEXOLE DIHYDROCHLORIDE 0.5 MG TAB PO SCH ×2 (21:06→22:00)
[2016-12-06] MEDS: CLONIDINE HCL 0.1 MG TAB PO SCH ×2 (21:06→22:00)
[2016-12-06] MEDS: DULOXETINE (CYMBALTA) 30 MG CAP PO SCH (21:06)
[2016-12-07] MEDS ORDERED: DiphenhydrAMINE HCL 50 MG/ML VIAL IV ONE (00:15)
[2016-12-07] MEDS ORDERED: NURSING VERBAL MED ORDER ONE ×3 (00:15→10:30)
[2016-12-07 00:21] VITALS: BP 117/75; PULSE 74; TEMP 36.9; O2SAT 95
[2016-12-07] MEDS: KETOROLAC TROMETHAMINE 15 MG/ML VIAL IV PRN ×4 (00:26→22:50)
[2016-12-07] MEDS: SODIUM CHLORIDE 0.9% 1000ML 1,000 ML IV SCH (07:50)
[2016-12-07 08:00] VITALS: O2SAT 95
[2016-12-07 08:08] VITALS: BP 113/74; PULSE 65; TEMP 36.8; O2SAT 98
[2016-12-07] MEDS: CLONAZEPAM 1 MG TAB PO SCH ×5 (09:51→21:35)
[2016-12-07] MEDS: NYSTATIN SUSP 500,000 U/5 ML UDC PO SCH ×4 (09:51→21:37)
--- NOTE | 2016-12-07 11:56 | Progress Note ---
Subjective Date of Service: Dec 07, 2016. 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 Reports she has pain in her right flank as well, but also notes pain in neck, and extremities No fever or chills Reports on/off generalized itching and vaginal discharge Problem List Medical Problems: (1) Abdominal pain Status: Acute (2) Cervicitis Status: Acute (3) Diarrhea Status: Acute (4) Dizziness Status: Acute (5) Headache Status: Acute (6) Headache Status: Acute (7) Ovarian cyst Status: Acute (8) Ovarian cyst Status: Acute (9) PID (acute pelvic inflammatory disease) Status: Acute (10) Right lower quadrant abdominal pain Status: Acute (11) Right sided abdominal pain Status: Acute (12) UTI (urinary tract infection) Status: Acute (13) Vaginitis Status: Acute Review of Systems Constitutional: No fever, No chills, No sweats, No weight loss, No weakness Eyes: No worsening of vision, No eye pain ENT: No hearing loss, No unusual epistaxis, No nasal symptoms, No sore throat Respiratory: No cough, No sputum, No wheezing Cardiac: No chest pain, No orthopnea, No PND, No edema Abdomen: + pain, No nausea, No vomiting, No diarrhea, No constipation Musculoskeletal: + muscle pain, No joint pain, No swelling, No calf pain Female : + vaginal discharge, No dysuria, No urinary frequency, No hematuria , No incontinence Neurologic: No memory loss, No paralysis, No weakness, No numbness/tingling Psychiatric: + depression symptoms, No anhedonism, No anxiety, No insomnia Endo: No fatigue, No excessive thirst Skin: + itch, No rash, No new/changing skin lesions Objective Vital Signs Date Time Temp Pulse Resp B/P (MAP) Pulse Ox O2 Delivery O2 Flow Rate FiO2 12/07/16 08:08 36.8 65 16 113/74 (87) 98 Room Air 12/07/16 08:00 95 Room Air 12/07/16 00:21 36.9 74 18 117/75 (89) 95 Room Air 12/07/16 00:00 Room Air 12/06/16 20:00 Room Air 12/06/16 15:33 36.7 78 18 134/83 (100) 99 Room Air Physical Exam General Appearance: WD/WN, + mild distress Eyes: normal inspection, PERRL, EOMI, sclerae normal Neck: supple, no adenopathy, thyroid normal, no JVD Respiratory/Chest: chest non-tender, lungs clear, normal breath sounds, no respiratory distress Cardiovascular: regular rate, rhythm, no edema, no gallop, no JVD Abdomen: normal bowel sounds, non tender, soft, no organomegaly Extremities: normal range of motion, non-tender, normal inspection, no pedal edema Neurologic/Psychiatric: no motor/sensory deficits, alert, normal mood/affect, oriented x 3 Assessment and Plan Pt is a 31 y/o female with PMHx of Migraine Headaches, Nephrolithiasis, Frequent Ovarian Cysts, and recent Pelvic Inflammatory Disease who presents to the ED complaining of headache, dizziness, N/V, and diarrhea starting last night. N/V/D: Nephrolithiasis vs Migraine vs Dehydration vs Benzodiazepine Withdrawal Pt reports mult kidney stones this yr and states recent extraction back in june and july 2016, states stones never appeared on previous CT scans and gives consent to obtain records from Dr. Joaquín Childers, urologist in [place], [place]. - NSS x 1 L bolus and continue NSS at 125 mL/hr - BP still low - normal 120-130 systolic per patient - Continue Klonopin 1 mg TID - would likely benefit from reduction but likely will need slow taper - she denies abrupt cessation but has been taking a reduced dose over the past couple days - Lamictal 100 mg daily and Maxalt 10 mg daily PRN - Toradol 15 mg IV Q6H PRN and Tramadol 50 mg PRN, also added morphine 1 mg IV q 3 hrs PRN pain - CT abd/pelvis neg, urology consulted and not convinced of any infection or stone at this time, awaiting records to be obtained, ?fibromyalgia as pain noted in neck and extremities, psych consulted as pt is already on cymbalta and noted to be depressed and tearful 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 and the fear of being kicked out due to recurrent visits to the ER Possible Urinary Tract Infection: R Flank Pain and Suprapubic Pain - Hold Cipro, and stop Ceftriaxone 1 g IV daily - Urine cx, all normal gerardo - Renal U/S unremarkable - 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 - Has had numerous studies over the past month without abnormal findings other than R ovarian cyst - Obtain records from urologist Dr Childers in [place], [place] Recent Pelvic Inflammatory Disease and Trichomonas - Possible Yeast Infection: - She reports follow-up on Sunday with [facility] related to above and R ovarian cyst - Diflucan 150 mg x 1 dose and Nystatin oral susp - Did not perform vaginal exam - may be warranted - Vaginal cx sent out 12/07 due to noted whitish discharge, denies being sexually active or having any sexual partners, started on flagyl 500 PO TID Anxiety: - Clonidine 0.2 mg daily and Cymbalta 30 mg daily, psychiatry consulted DVT Prophylaxis: SCDs; Ambulation
[2016-12-07] MEDS: METRONIDAZOLE 500 MG TAB PO SCH ×3 (12:00→21:35)
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
[2016-12-07 16:00] LABS: HYDROXYETHYLFLURAZEPAM CONF NEGATIVE NG/ML (CUTOFF=50); HYDROXYMIDAZOLAM NEGATIVE NG/ML (CUTOFF=50); HYDROXYTRIAZOLAM CONF NEGATIVE NG/ML (CUTOFF=50); TEMAZEPAM CONF NEGATIVE NG/ML (CUTOFF=50)
[2016-12-07 16:11] VITALS: BP 124/82; PULSE 67; TEMP 36.7; O2SAT 97
[2016-12-07] MEDS: TRAMADOL HCL 50 MG TAB PO PRN ×2 (17:54→22:31)
[2016-12-07] MEDS: PRAMIPEXOLE DIHYDROCHLORIDE 0.5 MG TAB PO SCH (21:36)
[2016-12-07] MEDS: CLONIDINE HCL 0.1 MG TAB PO SCH (21:36)
[2016-12-07] MEDS: DULOXETINE HCL 60 MG CAP PO SCH (21:36)
[2016-12-07] MEDS: ACETAMINOPHEN 325 MG TAB PO PRN (23:28)
[2016-12-08] VITALS: O2SAT 95
[2016-12-08 00:37] VITALS: BP 126/79; PULSE 60; TEMP 36.7; O2SAT 99
[2016-12-08] MEDS: TRAMADOL HCL 50 MG TAB PO PRN ×3 (04:29→21:30)
[2016-12-08 07:29] VITALS: BP 130/78; PULSE 60; TEMP 36.6; O2SAT 99
[2016-12-08] MEDS: CLONAZEPAM 1 MG TAB PO SCH ×3 (07:39→20:22)
[2016-12-08] MEDS: ONDANSETRON INJ 2 MG/ML 2 ML VIAL IV PRN ×2 (07:39→14:21)
[2016-12-08] MEDS: KETOROLAC TROMETHAMINE 15 MG/ML VIAL IV PRN (07:39)
[2016-12-08] MEDS: NYSTATIN SUSP 500,000 U/5 ML UDC PO SCH ×4 (07:39→20:22)
[2016-12-08] MEDS: METRONIDAZOLE 500 MG TAB PO SCH ×3 (09:39→20:25)
[2016-12-08] MEDS ORDERED: TAMSULOSIN HCL 0.4 MG CAP PO ONE (12:45)
--- NOTE | 2016-12-08 13:16 | Progress Note ---
Subjective Date of Service: Dec 08, 2016. Subjective Pt evaluation today including: conversation w/ patient, physical exam, chart review, lab review, review of studies (CT abd, renal u/s, etc), conversation w/ marine consultant (urology PA, Félix Arambula) Pain: right flank, right paraspinal region, RUQ/RLQ abdomen PO Intake: normal Patient teary-eyed and upset during my visit. Continues to have pain. Feels the care team in general is not listening to her and her needs. She states the current symptoms are nearly identical to when she had kidney stones in August 2016 and September 2016. During August procedure had 7 stones removed via laser litho; had stents deployed. Again had 3 stones removed via laser litho in September; again stents deployed. Reports that most of her past "scans" have NOT shown the stones; only during cystoscopy with retrogrades are they noted. Records from [place] have not been received yet She admits her pain started about 1 week into class (attending [employer] - first year). Traveled 2000 miles from [place] by car early in November. With that said denies leg pain, calf pain, pleuritic chest pain, sob, real. Reports seeing stone fragments in her urine and some of this was sent off last night; I confirmed this with staff. Her urine is "dark" and she has mild dysuria. Problem List Medical Problems: (1) Abdominal pain Status: Acute (2) Cervicitis Status: Acute (3) Diarrhea Status: Acute (4) Dizziness Status: Acute (5) Headache Status: Acute (6) Headache Status: Acute (7) Ovarian cyst Status: Acute (8) Ovarian cyst Status: Acute (9) PID (acute pelvic inflammatory disease) Status: Acute (10) Right lower quadrant abdominal pain Status: Acute (11) Right sided abdominal pain Status: Acute (12) UTI (urinary tract infection) Status: Acute (13) Vaginitis Status: Acute Review of Systems Constitutional: No fever, No chills Respiratory: No shortness of breath, No dyspnea on exertion Cardiac: No chest pain, No edema Abdomen: + pain, No nausea, No vomiting, No constipation, No GI bleeding Female : + dysuria, + urinary frequency Objective Vital Signs Date Time Temp Pulse Resp B/P (MAP) Pulse Ox O2 Delivery O2 Flow Rate FiO2 12/08/16 08:00 Room Air 12/08/16 07:29 36.6 60 16 130/78 (95) 99 12/08/16 00:37 36.7 60 18 126/79 (95) 99 Room Air 12/08/16 00:00 95 Room Air 12/07/16 16:11 36.7 67 19 124/82 (96) 97 Room Air 12/07/16 16:00 Room Air Physical Exam General Appearance: + mild distress (tearful, but not in pain) ENT: pharynx normal Neck: no JVD Respiratory/Chest: lungs clear, no respiratory distress, no accessory muscle use Cardiovascular: regular rate, rhythm, no gallop, no murmur Abdomen: normal bowel sounds, soft, no organomegaly, + tenderness (mild RUQ and mild RLQ; no peritoneal signs), + pertinent finding (+equisite flank pain on right along with paraspinal muscle pain along lumbar spine on right ) Extremities: no pedal edema Neurologic/Psychiatric: alert, oriented x 3, + depressed affect Skin: no rash Laboratory Results Last 24 Hours Test 12/07/16 22:43 Assessment and Plan 31yo female - 1. right flank pain/right-sided abdominal pain - thus far w/u including CT abd/pelvis, renal u/s, labs, and u/a / urine cx negative for specific etiology. she reports having had 10 kidney stones this year none of which could be seen by conventional x-ray or CT scan. even if these stones are uric acid stones they should still be visible on CT scan. she has requested a second opinion and I have spoken directly to [facility] who will see her later today. in meantime - * repeat u/a and urine cx - obtain urine via I/O cath * urine for GC/chlamydia * NS at 150cc/hr * morphine prn pain * flomax * KUB x-ray - assess stool load and bowel gas pattern * l-spine x-rays - r/o l-spine pathology * consider CTA chest, r/o PE, if urological w/u is negative in light of heightened PE risk (long-distance travel, recent OCP usage, etc) * consider biliary work-up but doubt this is contributing 2. FEN - diet as tolerated, IVF, lytes are stable. 3. anxiety/depression - continue outpatient meds and I appreciate psych recommendations. 4. insomnia - consider trazodone. 5. DVT proph - if no procedure is planned then add lovenox once daily. time - 50 minutes Continued [facility] stay due to: inadequate oral pain control, multiple IV medications needed Discharge planning: home
[2016-12-08] MEDS: SODIUM CHLORIDE 0.9% 1000ML 1,000 ML IV SCH ×2 (13:26→20:22)
[2016-12-08] MEDS: MoRPHine SULFATE 4 MG/ML 1 ML CARP\\VIAL IV PRN ×3 (14:20→23:36)
[2016-12-08 14:26] LABS: URINE APPEARANCE CLOUDY (CLEAR); URINE BILIRUBIN NEG (NEG); URINE COLOR YELLOW; URINE EPITHELIAL CELL AUTO >30 /lpf (0-5); URINE NITRITE NEG (NEG); URINE PH 6.5 (4.5-7.5); URINE SPECIFIC GRAVITY 1.021 (1.000-1.030); UROBILINOGEN NEG (NEG)
[2016-12-08 14:33] LABS: MANUAL MICROSCOPIC REQUIRED? NO; REVIEW REQ? YES
--- NOTE | 2016-12-08 14:50 | Urology Consultation ---
History General Date of Service: Dec 08, 2016. Primary Care Physician: [facility] Pt seen a urologist before?: Yes If yes, why?: flank pain, possible stones History of Present Illness 31 year old female admitted with flank pain. Asked to see pt as second opinion for evaluation of flank pain, hx of stones. She complains of right sided pain radiating to her groin. CT scan does not show any stones or hydronephrosis bilaterally. Her clean catch UA and culture appear contaminated. She was straight cathed for repeat culture- entered the room as RN finished. Did note moderate amount of blood clots and debris throughout the cathed urine specimen. She has been afebrile. VSS White count and creatinine are normal. She has developed a rash on her inner thighs- that extends into her groin area- warm to touch. Does not appear to be hives. She states she is very itchy and nauseous. Will have her nurse administer zofran and benadryl. She is tearful and states that she has seen Urology in [place] and the surgeon there told her that her stones were not visible on CT scan. He had performed a ureteroscopy and removed stones that were not previously seen. Unfortunately these records were not available for review. She called her Urologists office in [place] while this provider was in the room to have them faxed. Awaiting records. She is currently a [employer] student and is very upset about the amount of class she has missed and is very worried she will not be able to continue the program this semester. Imaging Imaging: CT, Ultrasound Laboratory Last 24 Hours Test 12/07/16 22:43 12/08/16 13:50 Current Inpatient Medications Medications (Trade) Dose Ordered Sig/Radha Route Start Time Stop Time Status Last Admin Dose Admin Acetaminophen (Tylenol Tab) 650 mg Q4H PRN PO 12/05/16 15:00 01/04/17 14:59 12/07/16 23:28 650 MG Al Hydrox/Mg Hydrox/Simethicone (Maalox Max Susp) 15 ml Q4H PRN PO 12/05/16 15:00 01/04/17 14:59 Magnesium Hydroxide (Milk Of Magnesia Susp) 30 ml Q6H PRN PO 12/05/16 15:00 01/04/17 14:59 Polyethylene (Miralax Powder Packet) 17 gm DAILY PRN PO 12/05/16 15:00 01/04/17 14:59 Ondansetron HCl (Zofran Inj) 4 mg Q6H PRN IV 12/05/16 15:00 01/04/17 14:59 12/08/16 07:39 4 MG Clonazepam (Klonopin Tab) 1 mg TID PO 12/05/16 21:00 01/04/17 20:59 12/08/16 07:39 1 MG Lamotrigine (Lamictal Tab) 100 mg HS PO 12/05/16 21:00 01/04/17 20:59 12/07/16 21:35 100 MG Pramipexole Dihydrochloride (miraPEX TAB) 0.5 mg HS PO 12/05/16 21:00 01/04/17 20:59 12/07/16 21:36 0.5 MG Rizatriptan Benzoate (Maxalt Tab) 10 mg DAILY PRN PO 12/05/16 15:00 01/04/17 14:59 Clonidine HCl (Catapres Tab) 0.2 mg HS PO 12/05/16 21:00 01/04/17 20:59 12/07/16 21:36 0.2 MG Miscellaneous (Iv Fluids Completed) 1 ea PRN PRN N/A 12/05/16 15:15 12/05/17 15:14 Nystatin (Mycostatin Susp) 5 ml QID PO 12/05/16 17:00 12/15/16 16:59 12/08/16 12:54 5 ML Ketorolac Tromethamine (Toradol Inj) 15 mg Q6H PRN IV 12/05/16 15:45 12/10/16 15:44 12/08/16 07:39 15 MG Tramadol HCl (Ultram Tab) 50 mg Q4H PRN PO 12/05/16 18:00 01/04/17 17:59 12/08/16 09:43 50 MG Metronidazole (Flagyl Tab) 500 mg TID PO 12/07/16 10:30 12/17/16 10:29 12/08/16 09:39 500 MG Diphenhydramine HCl (Benadryl Cap) 25 mg Q6 PRN PO 12/07/16 10:45 01/06/17 10:44 12/07/16 23:28 25 MG Duloxetine HCl (Cymbalta Cap) 60 mg HS PO 12/07/16 22:00 01/06/17 21:59 12/07/16 21:36 60 MG Sodium Chloride 1,000 ml @ 150 mls/hr Q6H40M IV 12/08/16 12:45 01/07/17 12:44 12/08/16 13:26 150 MLS/HR Morphine Sulfate (MoRPHine SULFATE INJ) 4 mg Q4H PRN IV 12/08/16 12:45 12/22/16 12:44 Tamsulosin HCl (Flomax Cap) 0.4 mg QAM PO 12/09/16 08:00 01/08/17 07:59 Labs were reviewed and are within normal limits unless listed below. Labs are available in the chart and at [facility] Problem List Medical Problems: (1) Abdominal pain Status: Acute (2) Cervicitis Status: Acute (3) Diarrhea Status: Acute (4) Dizziness Status: Acute (5) Headache Status: Acute (6) Headache Status: Acute (7) Ovarian cyst Status: Acute (8) Ovarian cyst Status: Acute (9) PID (acute pelvic inflammatory disease) Status: Acute (10) Right lower quadrant abdominal pain Status: Acute (11) Right sided abdominal pain Status: Acute (12) UTI (urinary tract infection) Status: Acute (13) Vaginitis Status: Acute Past History fibromyalgia, kidney stones, other (ovarian cysts) Pt had a problem w anesthesia?: No Past Surgical History: other (ureteroscopy in [place] and small bowel obstruction ) Family History Patient reports no known family medical history. Social History Hx Tobacco Use In Past Year?: No Smoking: non-smoker Alcohol: never Drug use: none Marital status: single Housing status: lives alone Occupation status: student Immunizations History of Influenza Vaccine: Unknown History of Tetanus Vaccine?: Unknown History of Pneumococcal: Unknown History of Hepatitis B Vaccine: Unknown History of MDRO No Allergies Coded Allergies: Metoclopramide (Verified Adverse Reaction, Intermediate, panic attacks, ) Prochlorperazine (Verified Adverse Reaction, Intermediate, panic attack, ) Sulfa Antibiotics (Verified Adverse Reaction, Intermediate, vomiting, 12/05) Ceftriaxone (Verified Adverse Reaction, Mild, CLAIMED FELT SKIN CRAWL; FIRE ANTS, 12/05/16) Medications Home Medications: Home Meds and Scripts Medications Dose Route/Sig Max Daily Dose Days Date Category Dose Instructions Cipro (Ciprofloxacin) 250 Mg Tab 250 Mg PO BID 7 12/02/16 Rx Maxalt (Rizatriptan Benzoate) 10 Mg Tab 10 Mg PO UD PRN 12/02/16 Reported TAKE ONE TABLET AT ONSET OF MIGRAINE HEADACHE, MAY REPEAT AFTER 2 HOURS IF NEEDED. TAKE NO MORE THAN 2 TABLETS/24 HOURS Necon - (Norethindrone & Eth Estradiol) 1 Tab Tab 1 Tab PO HS 28 11/14/16 Reported Klonopin (Clonazepam) 1 Mg Tab 1 Mg PO TID 11/14/16 Reported Mirapex (Pramipexole Dihydrochloride) 0.5 Mg Tab 0.5 Mg PO HS 11/14/16 Reported Lamictal (Lamotrigine) 100 Mg Tab 100 Mg PO HS 11/14/16 Reported Catapres (Clonidine Hcl) 0.2 Mg Tab 0.2 Mg PO HS 11/14/16 Reported Cymbalta (Duloxetine HCl) 30 Mg Cap 30 Mg PO HS 11/14/16 Reported Inpatient Medications: Current Inpatient Medications Medications (Trade) Dose Ordered Sig/Radha Route Start Time Stop Time Status Last Admin Dose Admin Acetaminophen (Tylenol Tab) 650 mg Q4H PRN PO 12/05/16 15:00 01/04/17 14:59 12/07/16 23:28 650 MG Al Hydrox/Mg Hydrox/Simethicone (Maalox Max Susp) 15 ml Q4H PRN PO 12/05/16 15:00 01/04/17 14:59 Magnesium Hydroxide (Milk Of Magnesia Susp) 30 ml Q6H PRN PO 12/05/16 15:00 01/04/17 14:59 Polyethylene (Miralax Powder Packet) 17 gm DAILY PRN PO 12/05/16 15:00 01/04/17 14:59 Ondansetron HCl (Zofran Inj) 4 mg Q6H PRN IV 12/05/16 15:00 01/04/17 14:59 12/08/16 07:39 4 MG Clonazepam (Klonopin Tab) 1 mg TID PO 12/05/16 21:00 01/04/17 20:59 12/08/16 07:39 1 MG Lamotrigine (Lamictal Tab) 100 mg HS PO 12/05/16 21:00 01/04/17 20:59 12/07/16 21:35 100 MG Pramipexole Dihydrochloride (miraPEX TAB) 0.5 mg HS PO 12/05/16 21:00 01/04/17 20:59 12/07/16 21:36 0.5 MG Rizatriptan Benzoate (Maxalt Tab) 10 mg DAILY PRN PO 12/05/16 15:00 01/04/17 14:59 Clonidine HCl (Catapres Tab) 0.2 mg HS PO 12/05/16 21:00 01/04/17 20:59 12/07/16 21:36 0.2 MG Miscellaneous (Iv Fluids Completed) 1 ea PRN PRN N/A 12/05/16 15:15 12/05/17 15:14 Nystatin (Mycostatin Susp) 5 ml QID PO 12/05/16 17:00 12/15/16 16:59 12/08/16 12:54 5 ML Ketorolac Tromethamine (Toradol Inj) 15 mg Q6H PRN IV 12/05/16 15:45 12/10/16 15:44 12/08/16 07:39 15 MG Tramadol HCl (Ultram Tab) 50 mg Q4H PRN PO 12/05/16 18:00 01/04/17 17:59 12/08/16 09:43 50 MG Metronidazole (Flagyl Tab) 500 mg TID PO 12/07/16 10:30 12/17/16 10:29 12/08/16 09:39 500 MG Diphenhydramine HCl (Benadryl Cap) 25 mg Q6 PRN PO 12/07/16 10:45 01/06/17 10:44 12/07/16 23:28 25 MG Duloxetine HCl (Cymbalta Cap) 60 mg HS PO 12/07/16 22:00 01/06/17 21:59 12/07/16 21:36 60 MG Sodium Chloride 1,000 ml @ 150 mls/hr Q6H40M IV 12/08/16 12:45 01/07/17 12:44 12/08/16 13:26 150 MLS/HR Morphine Sulfate (MoRPHine SULFATE INJ) 4 mg Q4H PRN IV 12/08/16 12:45 12/22/16 12:44 Tamsulosin HCl (Flomax Cap) 0.4 mg QAM PO 12/09/16 08:00 01/08/17 07:59 Review of Systems Review of Systems Constitutional: No fever, No chills Eyes: No blurred vision Neurological: No dizzy Endocrine: No excessive thirst Gastrointestinal: + see HPI, + abdominal pain, + nausea Cardiovascular: No chest pain Skin: + see HPI, + rash Musculoskeletal: + back pain Blood / Lymphatic: No bleed easily Ears / Nose / Throat: No hearing loss Female : + blood in urine, + kidney stones Physical Exam Vital Signs: Vital Signs Past 12 Hours Date Time Temp Pulse Resp B/P (MAP) Pulse Ox O2 Delivery O2 Flow Rate FiO2 12/08/16 08:00 Room Air 12/08/16 07:29 36.6 60 16 130/78 (95) 99 Physical Exam: General Appearance: WD/WN, no apparent distress Eyes: bilateral eyes normal inspection ENT: hearing grossly normal Neck: no JVD Respiratory/Chest: no respiratory distress, no accessory muscle use Gastrointestinal: Abdomen: normal abdomen Bladder: tender Renal: normal renal Genitourinary - Female: External Genitalia: normal external genitalia Urethral Meatus: normal urethral meatus Extremities: normal range of motion, non-tender, normal inspection, no pedal edema, no calf tenderness Neurologic/Psychiatric: alert, normal mood/affect, oriented x 3 Skin: normal color, warm/dry, + rash (erythematous macular rash. No pustules. Does not appear to be allergic in nature. ) Lymphatic: no adenopathy Assessment & Plan Assessment & Plan Imaging: CT Right sided flank and groin pain. CT scan does not show hydro or stones. Patient continues to have pain in right side and over her bladder. Urine specimen with blood clots but otherwise yellow. Sent for culture. Not enough for cytology. Awaiting records from her previous urologist but for now, but no need for urgent surgical intervention. We are happy to follow her as an outpt. Recommend outpt cystoscopy given her symptoms and visible blood clots in cathed specimen. Will review records as soon as they are received to determine if further intervention is warranted. Thanks for the opportunity to participate in the care of this pt. Addendum: able to review records. urologist does state that stones were found that were not visible on CT scan. Discussed case with Dr. Tinsley- will get pt IVP to determine if any obstructions, stones within ureters.
--- NOTE | 2016-12-08 15:46 | DIAGNOSTIC IMAGING REPORT ---
L-SPINE MIN 4 VIEWS ROUTINE CLINICAL HISTORY: 31 years-old Female presenting with eval for any overt pathology of l-spine. TECHNIQUE: Frontal, bilateral oblique, and lateral views of the lumbar spine as well as coned in lateral view of the lumbosacral junction were obtained. COMPARISON: Correlation made to CT of the abdomen and pelvis from 12/02/2016. FINDINGS: Normal lumbar lordosis. Vertebral bodies maintain normal height and alignment. Intervertebral disc spaces preserved. No significant osseous neural foraminal narrowing. No radiographic evidence of acute fracture or subluxation. Moderate stool burden. No gross pneumoperitoneum. IMPRESSION: Normal lumbar spine. Electronically signed by: Mika Turner M.D. 12/08/2016 3:45 PM Dictated Date/Time: 12/08/2016 3:43 PM
--- NOTE | 2016-12-08 15:53 | DIAGNOSTIC IMAGING REPORT ---
KUB HISTORY: pain; eval stones, eval constipation COMPARISON: None. FINDINGS: The bowel gas pattern is non-obstructive. Moderate to extensive formed stool is seen throughout the colon, greatest within the ascending colon. There is no organomegaly. No renal calculi. No ureteral calculi. No pneumoperitoneum or pneumatosis. No fracture. IMPRESSION: 1. Nonobstructive bowel gas pattern. 2. Moderate to extensive formed stool throughout the colon, greatest within the ascending colon. 3. No renal or ureteral stones. Electronically signed by: Malcolm Bowles M.D. 12/08/2016 3:52 PM Dictated Date/Time: 12/08/2016 3:51 PM
[2016-12-08] MEDS ORDERED: BISACODYL 10 MG SUPP PR STA (18:37)
[2016-12-08 20:00] VITALS: O2SAT 95
[2016-12-08] MEDS: POLYETHYLENE (MIRALAX) 17 GM PACK PO SCH ×2 (20:22→20:32)
--- NOTE | 2016-12-08 21:14 | Progress Note ---
Progress Note Date of Service Dec 08, 2016. Progress Note time - 2109 reviewed outpatient records from [place] detailing her 2 previous cystoscopies and stent placements notes reveal that the CT scans of her abdomen did in fact demonstrate multiple stones (patient has told us that her scans failed to show identifiable stones) KUB x-ray with severe constipation l-spine x-rays normal went to patient's bedside - reviewed x-ray results I showed her the KUB x-ray with severe constipation this could be contributing heavily to her abdominal symptoms, possibly even most of it recommended dulcolax suppos x 1, limitation of narcotics, and miralax x 2 doses tonight then start miralax BID tomorrow and she may even need stimulant like dulcolax for a period of time she also reported a pruritic rash in her groin/thighs I examined the rash (chaperoned by nursing staff) - erythematous maculopapular rash in groin/thighs b/l - no satellites to suggest yeast suspect contact dermatitis benadryl prn + triamcinolone cream 0.1% TID total time today between 2 separate visits, reviewing records, speaking with urology, etc - about 70 minutes Woody HUTCHINS MD
[2016-12-08] MEDS: TRIAMCINOLONE ACET 0.1% CR 80 GM TUBE EXT SCH (21:25)
[2016-12-08] MEDS: CLONIDINE HCL 0.1 MG TAB PO SCH (21:26)
[2016-12-08] MEDS: PRAMIPEXOLE DIHYDROCHLORIDE 0.5 MG TAB PO SCH (21:26)
[2016-12-08] MEDS: DULOXETINE HCL 60 MG CAP PO SCH (21:27)
[2016-12-08 23:50] VITALS: BP 128/82; PULSE 69; TEMP 36.5; O2SAT 100
[2016-12-09] VITALS: O2SAT 95
[2016-12-09] MEDS: SODIUM CHLORIDE 0.9% 1000ML 1,000 ML IV SCH ×3 (01:58→17:09)
[2016-12-09] MEDS: TRAMADOL HCL 50 MG TAB PO PRN (01:59)
[2016-12-09] MEDS: MoRPHine SULFATE 4 MG/ML 1 ML CARP\\VIAL IV PRN ×4 (04:05→17:29)
[2016-12-09] MEDS: METRONIDAZOLE 500 MG TAB PO SCH (08:00)
[2016-12-09] MEDS: CLONAZEPAM 1 MG TAB PO SCH ×3 (08:00→21:18)
[2016-12-09 08:07] VITALS: BP 155/99; PULSE 81; TEMP 36.8; O2SAT 100
[2016-12-09 08:12] LABS: HEMATOCRIT 36.7 % (37-47); MEAN CELL VOLUME 95.8 fL (80-100); MEAN CORPUSCULAR HEMOGLOBIN 30.8 pg (25-34); MEAN CORPUSCULAR HGB CONC 32.2 g/dl (32-36); MEAN PLATELET VOLUME 9.6 fL (7.4-10.4); PLATELET COUNT 337 K/uL (130-400); RED BLOOD COUNT 3.83 M/uL (4.2-5.4); WHITE BLOOD COUNT 11.93 K/uL (4.8-10.8)
[2016-12-09] MEDS: TAMSULOSIN HCL 0.4 MG CAP PO SCH (08:12)
[2016-12-09] MEDS: TRIAMCINOLONE ACET 0.1% CR 80 GM TUBE EXT SCH ×3 (08:12→21:17)
[2016-12-09] MEDS: POLYETHYLENE (MIRALAX) 17 GM PACK PO SCH ×7 (08:13→21:18)
[2016-12-09] MEDS: NYSTATIN SUSP 500,000 U/5 ML UDC PO SCH ×4 (08:13→20:00)
[2016-12-09] MEDS ORDERED: OPTIRAY 300 IV PRN (08:30)
[2016-12-09 08:45] LABS: BUN/CREATININE RATIO 8.2 (10-20); CALCIUM 8.9 mg/dl (8.5-10.1); CREATININE 0.73 mg/dl (0.60-1.20); POTASSIUM 3.7 mmol/L (3.5-5.1)
--- NOTE | 2016-12-09 09:41 | Progress Note ---
Progress Note Date of Service Dec 09, 2016. Progress Note Patient is afebrile vital signs are stable He continues to report some right-sided back pain although while sitting in bed she appears comfortable. She also complains of some bladder spasms. Her urine culture is pending IVP is pending White blood cell count 11-creatinine stable Read through her old records she has had stones in the past although they were visible on CT scan. I did review the CT scan she had here does not show any stones that I can see She is scheduled for an IVP to rule out any obstruction. Assuming there is no obstruction that I doubt the source of her pain is renal colic. Continue current care
--- NOTE | 2016-12-09 11:16 | DIAGNOSTIC IMAGING REPORT ---
IVP W/OR W/O TOMOGRAMS HISTORY: 31 years-old Female right flank pain ; hx of stones acute right-sided flank pain with history of renal calculi. COMPARISON: KUB 12/08/2016, CT abdomen and pelvis 12/06/2016 TECHNIQUE: IVP was obtained with tomograms. 100 mL Optiray 300 was administered. FINDINGS: Certified Massage Therapist image demonstrates no urolithiasis. Decreased amount of colonic stool is noted from comparison. The bowel gas pattern is nonobstructive. No fracture. There is prompt opacification of the bilateral kidneys in a symmetric fashion. Right kidney measures 13.8 cm in length, left kidney measures 15.1 cm in length. There is symmetric excretion of contrast into the bilateral collecting systems and ureters without focal filling defects, ureteral or collecting system dilation. No focal abnormality of the urinary bladder identified. Mild postvoid residual is seen within the urinary bladder lumen. IMPRESSION: 1. Unremarkable IVP with symmetric renal function. 2. No urolithiasis identified. 3. Mild postvoid urinary bladder residual. The above report was generated using voice recognition software. It may contain grammatical, syntax or spelling errors. Electronically signed by: Malcolm Bowles M.D. 12/09/2016 11:14 AM Dictated Date/Time: 12/09/2016 11:10 AM
[2016-12-09] MEDS ORDERED: BISACODYL 5 MG TABEC PO ONE (11:45)
[2016-12-09] MEDS ORDERED: DiphenhydrAMINE INJ 25 MG in SYRINGE 0 ML IV SCH (12:00)
[2016-12-09] MEDS ORDERED: DiphenhydrAMINE HCL 50 MG/ML VIAL IV ONE (12:00)
[2016-12-09 15:04] VITALS: BP 144/95; PULSE 91; TEMP 36.8; O2SAT 96
[2016-12-09] MEDS ORDERED: BISACODYL 5 MG TABEC ONE (17:21)
[2016-12-09 20:00] VITALS: O2SAT 95
--- NOTE | 2016-12-09 20:33 | Progress Note ---
Subjective Date of Service: Dec 09, 2016. Subjective Pt evaluation today including: conversation w/ patient, physical exam, chart review, lab review, review of studies (IVP study), review of inpatient medication list Pain: right flank pain is resolved; continues w/ mild pain over lower abdomen PO Intake: NPO for IVP study Voiding: voiding difficulty patient does feel better today having multiple soft bowel movements I saw her post IVP study and she stated she was "starving" and wanted to eat reports rash in the groin/thighs has spread to lower abdomen pruritic Problem List Medical Problems: (1) Abdominal pain Status: Acute (2) Cervicitis Status: Acute (3) Diarrhea Status: Acute (4) Dizziness Status: Acute (5) Headache Status: Acute (6) Headache Status: Acute (7) Ovarian cyst Status: Acute (8) Ovarian cyst Status: Acute (9) PID (acute pelvic inflammatory disease) Status: Acute (10) Right lower quadrant abdominal pain Status: Acute (11) Right sided abdominal pain Status: Acute (12) UTI (urinary tract infection) Status: Acute (13) Vaginitis Status: Acute Review of Systems Constitutional: No fever, No chills Respiratory: No shortness of breath Cardiac: No chest pain Abdomen: No nausea, No vomiting, No GI bleeding Skin: + rash, + itch Objective Vital Signs Date Time Temp Pulse Resp B/P (MAP) Pulse Ox O2 Delivery O2 Flow Rate FiO2 12/09/16 16:00 Room Air 12/09/16 15:04 36.8 91 18 144/95 (111) 96 Room Air 12/09/16 08:07 36.8 81 18 155/99 (117) 100 Room Air 12/09/16 08:00 Room Air 12/09/16 00:00 95 Room Air 12/08/16 23:50 36.5 69 18 128/82 (97) 100 Room Air Physical Exam General Appearance: no apparent distress ENT: pharynx normal Neck: no JVD Respiratory/Chest: lungs clear, no respiratory distress, no accessory muscle use Cardiovascular: regular rate, rhythm, no gallop, no murmur Abdomen: normal bowel sounds, soft, no organomegaly, + tenderness (minimal suprapubic tenderness; abdomen is MUCH MORE SOFT than yesterday) Extremities: no pedal edema Neurologic/Psychiatric: alert, oriented x 3 Skin: + rash (indeed has spread to lower abdominal wall; continues in groin/ thighs; NOT present on arms, back, face, hands; this portion of the exam was chaperoned by staff members) Laboratory Results Last 24 Hours Test 12/09/16 07:59 White Blood Count 11.93 K/uL Red Blood Count 3.83 M/uL Hemoglobin 11.8 g/dL Hematocrit 36.7 % Mean Corpuscular Volume 95.8 fL Mean Corpuscular Hemoglobin 30.8 pg Mean Corpuscular Hemoglobin Concent 32.2 g/dl RDW Standard Deviation 46.5 fL RDW Coefficient of Variation 13.5 % Platelet Count 337 K/uL Mean Platelet Volume 9.6 fL Sodium Level 141 mmol/L Potassium Level 3.7 mmol/L Chloride Level 107 mmol/L Carbon Dioxide Level 30 mmol/L Anion Gap 4.0 mmol/L Blood Urea Nitrogen 6 mg/dl Creatinine 0.73 mg/dl Est Creatinine Clear Calc Drug Dose 115.6 ml/min Estimated GFR () 127.2 Estimated GFR (Non- 109.7 BUN/Creatinine Ratio 8.2 Random Glucose 83 mg/dl Calcium Level 8.9 mg/dl Vitamin B12 Level 378 pg/mL Assessment and Plan 31yo female - 1. right flank pain/right-sided abdominal pain - improving. suspect a large portion of her pain was from severe constipation (see KUB x-ray report). CT abd/pelvis, renal u/s, IVP study, labs, and u/a / urine cx negative. Urology feels her pain is NOT urological in origin - I agree with that assessment. Continue aggressive bowel regimen/clean out for constipation. Limit narcotics. 2. FEN - diet as tolerated, cut fluid rate to 75cc/hr, BMP/mag in am. 3. anxiety/depression - continue outpatient meds and I appreciate psych recommendations. 4. insomnia - consider trazodone. 5. DVT proph - add lovenox. 6. mild leukocytosis - probably reactive; no signs/symptoms of any infectious process; repeat CBC in am. 7. severe constipation - miralax "prep" with 5 doses today. Will need miralax BID +/- senna or dulcolax at d/c. if doing well tomorrow d/c home Continued [facility] stay due to: inadequate oral pain control, multiple IV medications needed, other (severe constipation ) Discharge planning: home
[2016-12-09] MEDS ORDERED: ENOXAPARIN 40 MG/0.4 ML SYR SQ ONE (20:45)
[2016-12-09] MEDS: OXYCODONE HCL IR 5 MG TAB (IMMEDIATE RELEASE) PO PRN (21:19)
[2016-12-09] MEDS: PRAMIPEXOLE DIHYDROCHLORIDE 0.5 MG TAB PO SCH (21:21)
[2016-12-09] MEDS: CLONIDINE HCL 0.1 MG TAB PO SCH (21:21)
[2016-12-09] MEDS: DULOXETINE HCL 60 MG CAP PO SCH (21:22)
[2016-12-10] VITALS: BP 116/79; PULSE 86; TEMP 36.6; O2SAT 95; O2SAT 96
[2016-12-10] MEDS: TRAMADOL HCL 50 MG TAB PO PRN (00:57)
[2016-12-10] MEDS: OXYCODONE HCL IR 5 MG TAB (IMMEDIATE RELEASE) PO PRN ×2 (02:43→09:35)
[2016-12-10 06:12] LABS: BASO % 0.2 %; BASO ABS # 0.02 K/uL (0-0.2); COMPLETE YES; EOS % 4.4 %; HEMATOCRIT 35.7 % (37-47); IG% 0.2 %; LYMPH % 26.7 %; LYMPH ABS # 2.22 K/uL (1.2-3.4); MEAN CORPUSCULAR HEMOGLOBIN 31.5 pg (25-34); MEAN CORPUSCULAR HGB CONC 32.8 g/dl (32-36); MEAN PLATELET VOLUME 9.8 fL (7.4-10.4); MONO % 7.2 %; NEUT % 61.3 %; PLATELET COUNT 326 K/uL (130-400); RED BLOOD COUNT 3.72 M/uL (4.2-5.4); WHITE BLOOD COUNT 8.33 K/uL (4.8-10.8)
[2016-12-10 07:02] LABS: BUN/CREATININE RATIO 10.8 (10-20); CALCIUM 8.8 mg/dl (8.5-10.1); CREATININE 0.71 mg/dl (0.60-1.20); MAGNESIUM 2.2 mg/dl (1.8-2.4); POTASSIUM 3.8 mmol/L (3.5-5.1)
[2016-12-10 07:33] VITALS: BP 142/88; PULSE 81; TEMP 36.7; O2SAT 97
[2016-12-10] MEDS: CLONAZEPAM 1 MG TAB PO SCH (09:25)
[2016-12-10] MEDS: NYSTATIN SUSP 500,000 U/5 ML UDC PO SCH ×2 (09:26→12:00)
[2016-12-10] MEDS: TAMSULOSIN HCL 0.4 MG CAP PO SCH (09:26)
[2016-12-10] MEDS: TRIAMCINOLONE ACET 0.1% CR 80 GM TUBE EXT SCH (09:32)
--- NOTE | 2016-12-10 10:50 | Progress Note ---
Progress Note Date of Service Dec 10, 2016. Progress Note Patient is afebrile vital signs are stable She feels somewhat better She's been moving her bowels Her white count is normal electrolytes are normal Urine culture was negative I reviewed her IVP which is normal there are no stones no filling defects and no hydronephrosis I went over the results with her does not appear that she has any kidney stones at this time Since there is no pathology to account for her initial discomfort will sign off on the patient reconsult as needed
[2016-12-10] MEDS ORDERED: TRMCR180 EXT (10:56)
[2016-12-10] MEDS ORDERED: RXC5 PO (10:56)
[2016-12-10] MEDS ORDERED: BND25X PO (10:56)
[2016-12-10] MEDS ORDERED: MRLP17 PO (10:56)
[2016-12-10] MEDS: POLYETHYLENE (MIRALAX) 17 GM PACK PO SCH (10:56)
[2016-12-10] MEDS ORDERED: PRED10TA PO (10:56)
[2016-12-10] MEDS ORDERED: DULO60CA44 PO (10:56)
--- NOTE | 2016-12-10 11:09 | Discharge Instructions ---
Discharge Instructions Date of Service Dec 10, 2016. Admission Reason for Admission: Nausea And Vomiting Discharge Discharge Diagnosis / Problem: nausea, vomiting, abdominal pain - resolved; severe constipation Discharge Goals Goal(s): Learn about illness, Diagnostic testing, Therapeutic intervention Activity Recommendations Activity Limitations: resume your previous activity (as tolerated) . Instructions / Follow-Up Instructions / Follow-Up From Dr. Damian - 1. severe constipation - please continue on a "bowel maintenance program" - that is, taking something every day to prevent/treat constipation. Suggest [id number] miralax once or twice daily for several months. If your stools become loose simply cut the dose back (but don't stop completely). Drink plenty of fluids every day and a diet with fruits/veggies/fiber. 2. history of kidney stones and bladder pain - please see LAWANDA Jensen or Dr. Karan Tinsley at [facility] within 1 week. 3. depression - consider seeing Dr. Marbella Lopez at [facility] in [place]. Office address/phone # - [address], [address] [place] [address] Please contact them at your convenience. A new prescription for your cymbalta 60mg has been sent to [facility] for you. 4. pain - please try to use the oxycodone sparingly as it will make your constipation worse. Do not drive or use alcohol while on pain medications. 5. rash - please do the following - * prednisone 30mg daily for 3 days; start this TODAY * triamcinolone cream up to three times a day in thin amounts for 7 days or so * benadryl [id number] 25mg every 6 hours as needed for itching * if the rash worsens or persists please see [facility] or your new family doctor 6. rectal/vaginal irritation - * purchase Epsom salts and take an Epsom salt bath twice a day for several days * just sit in the tub and soak * this may also help the rash 7. We will contact you with information regarding an appointment for a new primary care doctor/family doctor. 8. Return to [facility] if - * you develop fever over 100.5 degrees * you are having worsening abdominal pain, back pain, flank pain, bladder pain * you are vomiting and can't keep anything down * your rash worsens Current Hospital Diet Patient's current hospital diet: Regular Diet Discharge Diet Recommended Diet: Regular Diet Procedures Procedures Performed: 1. CAT scan of head - normal. 2. CAT scan of abdomen & pelvis - normal, no kidney stones seen. 3. ultrasound of kidneys - normal. 4. x-ray of abdomen - SEVERE constipation. 5. IVP study - no urinary tract abnormalities or stones seen. Pending Studies Studies pending at discharge: yes List of pending studies: stone analysis of possible stone fragment passed School Instructions Additional Instructions: Marta Doss was hospitalized at [facility] from 12/05/16 to 12/10/16. She may return to classes on Sunday, December 13, 2016. Medical Emergencies . Who to Call and When: Medical Emergencies: If at any time you feel your situation is an emergency, please call 911 immediately. . Non-Emergent Contact Non-Emergency issues call your: Primary Care Provider Call Non-Emergent contact if: temperature is above 100.5, your pain is not controlled, your pain is worsening, you have any medication questions . . "Provider Documentation" section prepared by Rojas Damian. . VTE Core Measure Inpt VTE Proph given/why not?: Juan M Rodrigez, SCD's
[2016-12-10 11:16] VITALS: BP 142/88; PULSE 81; TEMP 36.7; O2SAT 97
[2016-12-10] MEDS ORDERED: ENOXAPARIN 40 MG/0.4 ML SYR SQ SCH (21:00)
--- NOTE | 2016-12-11 00:30 | Discharge Summary ---
Discharge Summary Date of Service Dec 10, 2016. Discharge Summary Admission Date: Dec 08, 2016 at 14:54 Discharge Date: Dec 10, 2016 Discharge Disposition: Home Principal Diagnosis: abdominal pain likely due to severe constipation Problems/Secondary Diagnoses: 1. history of recurrent kidney stones 2. chronic migraines 3. major depression, recurrent 4. anxiety disorder 5. rash, either due to drug reaction or contact dermatitis Immunizations: Have You Had Influenza Vaccine: Unknown History of Tetanus Vaccine?: Unknown History of Pneumococcal: Unknown History of Hepatitis B Vaccine: Unknown Procedures: 1. IVP - IMPRESSION: 1. Unremarkable IVP with symmetric renal function. 2. No urolithiasis identified. 3. Mild postvoid urinary bladder residual. 2. CT abd/pelvis - no acute pathology; no renal stones, no hydronephrosis, no bladder or kidney masses/abnormalities. 3. renal u/s - normal. 4. KUB x-ray - severe constipation. 5. CT head - normal. 6. lumbar spine x-rays - normal. Consultations: 1. urology - [facility] - Laura Garcia MD 2. urology - [facility] - Karan Tinsley MD 3. psychiatry - DO Gonzalez Medication Reconciliation New Medications: Prednisone (Prednisone) 10 Mg Tab 30 MG PO DAILY for 3 Days, #9 TAB 0 Refills Diphenhydramine HCl (Diphenhydramine HCl) 25 Mg Cap 25 MG PO Q6 PRN for Itching, #30 CAP 0 Refills purchase [id number] at any pharmacy Oxycodone HCl (Oxycodone HCl) 5 Mg Tab 5 MG PO Q4H PRN for Pain, #15 TAB 0 Refills Polyethylene (Miralax) 17 Gm Pow 17 GM PO qd-bid, #1 BTL 2 Refills can purchase [id number] Triamcinolone Acet (Aristocort 0.1%) 240 Appln/80 Gm Cr 1 APPLN EXT TID, #30 GM 0 Refills apply in thin amounts to rash; avoid face/genitals; use for 7-10 days then stop. Changed Medications: Duloxetine Hcl (Cymbalta) 60 Mg Cap 1 CAP PO HS for 30 Days, #30 CAP 5 Refills (Changed from: Duloxetine HCl ( Cymbalta) 30 Mg Cap 30 Mg PO HS) Continued Medications: Clonazepam (Klonopin) 1 Mg Tab 1 MG PO TID, TAB Clonidine Hcl (Catapres) 0.2 Mg Tab 0.2 MG PO HS, TAB Lamotrigine (Lamictal) 100 Mg Tab 100 MG PO HS, TAB Norethindrone & Eth Estradiol (Necon ) 1 Tab Tab 1 TAB PO HS for 28 Days, TAB Pramipexole Dihydrochloride (Mirapex) 0.5 Mg Tab 0.5 MG PO HS Rizatriptan Benzoate (Maxalt) 10 Mg Tab 10 MG PO UD PRN for Migraine, TAB TAKE ONE TABLET AT ONSET OF MIGRAINE HEADACHE, MAY REPEAT AFTER 2 HOURS IF NEEDED. TAKE NO MORE THAN 2 TABLETS/24 HOURS Referrals At Discharge Follow up Referrals: Physician Referral - Please Call For Appointment with Marbella Lopez MD Urologist Referral - Within 1 Week with Karan Tinsley MD Discharge Exam Physical Exam: General Appearance: WD/WN, no apparent distress ENT: pharynx normal Neck: no JVD Respiratory/Chest: lungs clear, no respiratory distress, no accessory muscle use Cardiovascular: regular rate, rhythm, no gallop, no murmur, normal peripheral pulses Abdomen / GI: normal bowel sounds, non tender, soft, no organomegaly, + pertinent finding (resolution of right flank pain) Extremities: no pedal edema Neurologic/Psychiatric: alert, oriented x 3 Skin: + rash (erythematous macular-papular rash in groin, worse on left, extending to lower abdominal wall and torso; arms, back, lower legs, hands/feet , face - all spared) Hospital Course HISTORY OF PRESENT ILLNESS: Ms. Aviles is a 31 y/o female with PMHx of Migraine Headaches, Nephrolithiasis , Frequent Ovarian Cysts, and recent Pelvic Inflammatory Disease who presents to the ED complaining of headache, dizziness, N/V, and diarrhea starting last night. This was the 9th ED visit this month related largely to R flank pain. She also has presented to Cued related to this. She is known to have a R ovarian cyst and reports having issues with cysts since a young age. She has had intermittent brown spotting which is abnormal for her and is on contraceptives. She has also developed a white discharge that is "chunky" and thinks she may have a yeast infection. Also reports H/O kidney stones and reports they are usually non-radiopaque and followed with a urologist in [place]. She has been treated with Doxycycline and Flagyl x 2 weeks for reported PID and Trichomonas. However, cultures in our records did not show trichomonas but revealed gram + organism. She states her R flank pain has remained this month but then developed suprapubic pain and was started on Ciprofloxacin for a UTI. She started Ciprofloxacin yesterday. She then developed a headache that is not like her normal migraines and N/V, photophobia, and dizziness. Normal migraines for her are around her eyes and sharp but this migraine includes the eyes, forehead, and back of the neck/head. She describes this as a throbbing sensation and largely kept eyes closed/covered during exam. She reports associated diarrhea but states this has been going on for about a week. Today, she presented to an urgent center and was brought to the ED for BP of 75/47 and a largely sedated affect. At time of exam patient appears ill and complains of a headache and photophobia. She does not appear to be sedated and is following commands and answering questions appropriately. 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 She denies illicit drugs or narcotic use. She has been on clonazepam 1 mg 3 times a day for a long period of time. Over the past couple days she has only taken this medication once a day as she missed her appointment to get a new prescription. In the ED, she is afebrile and without leukocytosis. She remained hypotensive. Head CT was negative for acute findings. Tox screen was negative except for benzodiazepines. UA with moderate leuks and 1+ bacteria with culture pending. HOSPITAL COURSE: 1. right flank pain/right-sided abdominal pain - the patient underwent an extensive work-up for the pain during this admission. Of note - she had had 3 normal [address]s of the abdomen/pelvis within the last 30 days. In addition to the normal CTs her renal ultrasound, IVP study, labs, and u/a along with urine culture were normal. Specifically, no anomaly of the urinary tract was found including kidney stones , strictures, etc. EKG was normal. Lumbar spine x-rays were normal. Recent treatment for PID with nearly 2 weeks of antibiotics did not resolve her pain. Because her presenting symptoms were similar to past episodes of renal colic from kidney stones urological consultation was requested. She was seen first by [facility] and then, at her request for a second opinion, [facility]. Both urologists felt her pain was not of genitourinary origin given the extensive negative work-up as noted above. The patient felt she had passed a small stone fragment early on during her hospital stay and this was sent for analysis. Despite passing this possible fragment her flank/abdominal pain persisted. The stone analysis was pending at discharge. Mid-way through her stay a KUB x-ray showed very severe constipation, particularly in the ascending colon. She spent 2 days performing a significant colonic clean-out with resolution of her right-sided flank pain. Her abdominal bloating resolved and her exam revealed a soft, less tender abdomen. She was advised to stay on a bowel regimen for several months. This was discussed in detail. Prior to discharge she was eating/drinking without any nausea, emesis, or abdominal pain. It is unclear if severe constipation accounted for all of her presenting symptoms; however, her pain significantly improved with aggressive treatment of the constipation. At this time I cannot rule out gynecological causes of her pain or other GI tract pathology contributing. I am not suspicious, however, that a biliary cause, PEs, cardiac causes, or musculoskeletal issues are causing her pain. If her pain recurs or persists she would need additional work-up and GI and/or gynecological consultation. 2. major depression, recurrent - psychiatry increased her cymbalta to 60mg once daily. She will remain on her other chronic psychotropic medication. She was advised to establish care with [facility] shortly after discharge. 3. rash - this was thought to be either due to a drug reaction (flagyl?) vs a severe contact dermatitis. She was treated with topical steroids & anti-histamines. At discharge she was given oral prednisone as well. She will need close follow-up of this to ensure resolution. At discharge follow-up with urology, psychiatry, and her PCP were advised. Total Time Spent: Greater than 30 minutes This includes examination of the patient, discharge planning, medication reconciliation, and communication with other providers. Discharge Instructions Please refer to the electronic Patient Visit Report (Discharge Instructions) for additional information. Follow-Up 1. [facility] within 1 week 2. [facility] (or family medicine) within 1 week 3. Psychiatry - recommended Justino Mix, Dr. Marbella Lopez - first available Additional Copies To Anabel Chanel CRNP; Karan Tinsley MD; Marbella Lopez MD; [facility]
[2016-12-13 02:05] LABS: CHLAMYDIA TRACH RNA*** NOT DETECTED (NOT DETECTED); GC (NEIS GONORRHOEAE)RNA** NOT DETECTED (NOT DETECTED)
[2016-12-16] MEDS ORDERED: RIZA10TA18 PO (20:05)
[2016-12-27] MEDS ORDERED: AMOX875T PO (06:51)
== END 2016-12-10 12:00 | disposition home or self-care (01) | DRG 392 ==
LOC: EDBD 10:28 → C.ED 10:29 → C.MED 15:04 → ENRESERV 15:46 → C.MS4W 12-06 22:34 → OBSVTOIN 12-08 14:54
PROVIDERS: ADMIT Hospitalist; ATTEND Internal Medicine
DX: K59.00 Constipation, unspecified (principal); F33.1 Major depressive disorder, recurrent, moderate; G43.909 Migraine, unspecified, not intractable, without status migrainosus; L25.9 Unspecified contact dermatitis, unspecified cause; L27.0 Generalized skin eruption due to drugs and medicaments taken internally; T37.3X5A Adverse effect of other antiprotozoal drugs, initial encounter; G47.00 Insomnia, unspecified; F41.9 Anxiety disorder, unspecified; E66.9 Obesity, unspecified; Z51.81 Encounter for therapeutic drug level monitoring; Z79.899 Other long term (current) drug therapy; Z87.442 Personal history of urinary calculi; Z68.31 Body mass index [BMI] 31.0-31.9, adult; Z87.891 Personal history of nicotine dependence; Z81.8 Family history of other mental and behavioral disorders; Z81.1 Family history of alcohol abuse and dependence; Z81.3 Family history of other psychoactive substance abuse and dependence

== ENCOUNTER 2016-12-12 13:31 | Emergency (ER) | payer OTHER ==
[~2016-12-12] VITALS: Ht 162.6 cm; Wt 78.2 kg
[~2016-12-12 13:31] MED LIST changes: +BND25X PO; -CIPR250T3 PO; -CYM/30 PO; -DOXY100C76 PO; +DULO60CA44 PO; +MRLP17 PO; +PRED10TA PO; +RXC5 PO; +TRMCR180 EXT
[2016-12-12 13:37] VITALS: TEMP 37; O2SAT 96; Ht 162.6 cm; Wt 78.2 kg
[2016-12-12] MEDS ORDERED: DiphenhydrAMINE HCL 50 MG/ML VIAL IV STA (14:20)
[2016-12-12] MEDS ORDERED: METHYLPREDNISOLONE 125 MG VIAL IV STA (14:20)
[2016-12-12] MEDS ORDERED: RANITIDINE HCL 50 MG/100 ML D5W IV STA (14:20)
[2016-12-12] MEDS ORDERED: PRED10TA PO (14:38)
[2016-12-12] MEDS ORDERED: CLOT1CRE4 TOP (15:14)
[2016-12-12] MEDS ORDERED: CLOTRIMAZOLE 1% CR 15 GM TUBE EXT ONE (15:15)
--- NOTE | 2016-12-12 15:28 | EMERGENCY ROOM VISIT NOTE ---
History First contact with patient: 14:13 Chief Complaint: RASH Stated Complaint: WORSENING SKIN RASH-HOSPITAL SAID TO RETURN History of Present Illness The patient is a 31 year old female who presents to the Emergency Room with complaints of worsening rash in her groin over the past 2-3 days. 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 This is her ninth visit to the emergency department in the last 1 month for various complaints. Her last visit was about a week ago where she was admitted for abdominal pain. It seems that her abdominal pain may have been related to constipation, and cleared after treatment for this. The patient states that while she was in the hospital she began with a rash in her groin. She was started on steroid cream, Benadryl, and prednisone. She states that her rash has been worsening and now extends to her abdomen and chest. It is pruritic. She has not had fever or chills. She rates her discomfort a 9/10. Review of Systems More than 10 systems were reviewed and otherwise negative with the exception of history of present illness. Past Medical/Surgical History Medical Problems: (1) History of kidney stones (2) History of ovarian cyst (3) Major depressive disorder, recurrent, moderate (4) Nausea & vomiting (5) PID (pelvic inflammatory disease) Surgical Problems: (1) Hx of tonsillectomy (2) SBO (small bowel obstruction) Family History Patient reports no known family medical history. Social History Smoking Status: Never Smoker Drug Use: none Marital Status: single Housing Status: lives alone Occupation Status: student Current/Historical Medications Scheduled Clonazepam (Klonopin), 1 MG PO TID Clonidine Hcl (Catapres), 0.2 MG PO HS Clotrimazole (Topical) (Lotrimin Af), 1 APPLN TOP TID Duloxetine Hcl (Cymbalta), 1 CAP PO HS Lamotrigine (Lamictal), 100 MG PO HS Norethindrone & Eth Estradiol (Necon ), 1 TAB PO HS Polyethylene (Miralax), 17 GM PO qd-bid Pramipexole Dihydrochloride (Mirapex), 0.5 MG PO HS Prednisone Tab (Prednisone), 10 MG PO TID Triamcinolone Acet (Aristocort 0.1%), 1 APPLN EXT TID Scheduled PRN Diphenhydramine HCl (Diphenhydramine HCl), 25 MG PO Q6 PRN for Itching Oxycodone HCl (Oxycodone HCl), 5 MG PO Q4H PRN for Pain Rizatriptan Benzoate (Maxalt), 10 MG PO UD PRN for Migraine Physical Exam Vital Signs Date Time Temp Pulse Resp B/P (MAP) Pulse Ox O2 Delivery O2 Flow Rate FiO2 12/12/16 13:37 37.0 100 18 137/80 96 Physical Exam VITALS: Vitals are noted on the nurse's note and reviewed by myself. Vital signs stable. GENERAL: Well-developed, well-nourished, white female, who is in no acute distress and resting comfortably. Patient is cooperative with the examination. MOUTH: Mucous membranes moist. Tonsils are not enlarged. Pharynx without erythema, blood, or exudate. Uvula midline. Airway patent. NECK: Supple without nuchal rigidity. No lymphadenopathy. No thyromegaly. Cervical spine is nontender. HEART: Regular rate and rhythm without murmurs gallops or rubs. LUNGS: Clear to auscultation bilaterally without wheezes, rales or rhonchi. No retractions or accessory muscle use. ABDOMEN: Positive normal bowel sounds x 4. Soft, nontender, without masses or organomegaly. No guarding or rebound tenderness. SKIN: The skin was with diffuse rash primarily in the groin similar in appearance to a diaper dermatitis. There are small papules appreciated throughout the anterior abdomen and chest wall. No obvious cellulitis or abscess. Medical Decision & Procedures Medications Administered Medications (Trade) Dose Ordered Sig/Radha Route Start Time Stop Time Status Last Admin Dose Admin Diphenhydramine HCl (Benadryl Inj) 50 mg NOW STAT IV 12/12/16 14:20 12/12/16 14:21 DC 12/12/16 14:54 50 MG Methylprednisolone Sodium Succinate (Solu-Medrol IV) 125 mg NOW STAT IV 12/12/16 14:20 12/12/16 14:21 DC 12/12/16 14:54 125 MG Ranitidine HCl (zANTac IV) 50 mg NOW STAT IV 12/12/16 14:20 12/12/16 14:21 DC 12/12/16 14:55 50 MG ED Course Physical exam and history were performed. Nursing notes, EMR, and Medication List were personally reviewed. Patient appears to have a nonspecific pruritic rash worsening over the past few days. The patient was given Solu-Medrol, Benadryl, and Zantac through an IV here in the department. This did improve her itching, and did improve her symptoms. It did not improve the appearance of the rash however. Clinically I suspect that there may be a yeast or fungal component to this. She certainly could be experiencing a contact dermatitis to aloe vera which she has been using at home. The rash may also be worsening due to the steroid topically. I will ask her to stop all topical medications in the area and start her on clotrimazole. Evidently she has an appointment with [facility] in 3 days, and was asked to keep this appointment. Of note, the patient did request pain medication at the end of her visit. Review of the drug monitoring program from the [facility] shows the patient has had multiple narcotics and controlled substances. I do not feel comfortable providing her pain medication. She may use [id number] analgesics. She was otherwise invited back to the ER with any new, worsening, or concerning symptoms. The chart was completed utilizing [facility] Speech Voice Recognition Software. Grammatical errors, random word insertions, pronoun errors, and incomplete sentences are an occasional consequence of this system due to software limitations, ambient noise, and hardware issues. Any formal questions or concerns about the content, text, or information contained within the body of this dictation should be directly addressed to the provider for clarification. . Medical Decision Differential diagnosis: Etiologies such as contact dermatitis, viral exanthem, urticaria, allergic reaction, Hamilton-Alvaro syndrome, toxic epidermal necrolysis, erythema multiforme, cellulitis, scabies, HSV, varicella, zoster, eczema, staph scalded skin syndrome, fungal infection, as well as others were entertained. [place] Drug Monitoring [place] Search Results: patient reviewed within database, see additional documentation Medication Reconcilliation Current Medication List: was personally reviewed by me Blood Pressure Screening Patient's blood pressure: Normal blood pressure Impression Primary Impression: Rash and nonspecific skin eruption Departure Information Dispostion Home / Self-Care Condition GOOD Prescriptions Clotrimazole (Topical) (LOTRIMIN AF) 1 % Cre 1 APPLN TOP TID for 10 Days, #24 GM 1 Refill Prov: Xavier Posadas PA-C 12/12/16 Forms HOME CARE DOCUMENTATION FORM, School Instructions, Additional Instructions: Patient was seen and evaluated today in the emergency department fo medical care. Return to class on 12/15/2016. May return sooner if feelin better. Please excuse. IMPORTANT VISIT INFORMATION Patient Instructions My [facility] Additional Instructions You were seen and evaluated today on an emergency basis only. This is not a substitute for, or an effort to provide, complete comprehensive medical care. It is not possible to recognize and treat all injuries or illnesses in a single emergency department visit. For this reason it is recommended that you followup with [facility] as scheduled on Sunday for recheck. Begin clotrimazole ointment 3 times daily to the largest affected areas. Discontinue other topical treatments in this area. You are welcome to return to the emergency department anytime with new, worsening, or concerning symptoms. School Instructions Additional School Instructions: Patient was seen and evaluated today in the emergency department for medical care. Return to class on 12/15/2016. May return sooner if feeling better. Please excuse.
[2016-12-12 16:00] VITALS: BP 110/70; PULSE 70
[2016-12-16] MEDS ORDERED: RIZA10TA18 PO (20:05)
[2016-12-27] MEDS ORDERED: AMOX875T PO (06:51)
== END 2016-12-12 16:30 | disposition home or self-care (01) ==
LOC: C.EDB 13:33 → C.EDC 16:30
DX: R21 Rash and other nonspecific skin eruption (principal); N73.9 Female pelvic inflammatory disease, unspecified; F33.9 Major depressive disorder, recurrent, unspecified; Z87.442 Personal history of urinary calculi; Z90.89 Acquired absence of other organs; Z79.899 Other long term (current) drug therapy

== ENCOUNTER 2016-12-14 22:50 | Emergency (ER) | payer OTHER ==
[~2016-12-14] VITALS: Ht 162.6 cm; Wt 80.8 kg
[~2016-12-14 22:50] MED LIST changes: +CLOT1CRE4 TOP
[2016-12-14 22:56] VITALS: Ht 162.6 cm; Wt 80.8 kg
--- NOTE | 2016-12-14 23:45 | EMERGENCY ROOM VISIT NOTE ---
History Report prepared by Yane: Angel Quiroga Under the Supervision of: Dr. Karan Singh D.O. First contact with patient: 23:17 Chief Complaint: RASH Stated Complaint: SEVERE SPREADING RASH SINCE ADMISSION TO [facility] History of Present Illness The patient is a 31 year old female who presents to the Emergency Room with complaints of rash that began 6 days ago. At this time, she was discharged from the hospital where she was being treated for nausea and vomiting. Two days ago, she was here for the rash and discharged on steroids and fungal creams. She states that the rash has worsened and changed colors recently. He states that it itches and throbs. She is experiencing diaphoresis, rhinorrhea, cough, sore throat, and nausea as well. The rash is most prevalent in her groin area, but has spread to her abdomen, legs, arms, and back. She denies any fevers. Source of History: patient Onset: 6 days ago Position: other (global) Symptom Intensity: moderate Quality: other (Rash) Timing: worsening Associated Symptoms: + diaphoresis, + sorethroat, + cough, + nausea, No fevers Note: The rash is the worst in her groin, but has spread to her back, abdomen, legs, and arms. Review of Systems See HPI for pertinent positives and negatives. A total of ten systems were reviewed and were otherwise negative. Past Medical & Surgical Medical Problems: (1) History of kidney stones (2) History of ovarian cyst (3) Major depressive disorder, recurrent, moderate (4) Nausea & vomiting (5) PID (pelvic inflammatory disease) Surgical Problems: (1) Hx of tonsillectomy (2) SBO (small bowel obstruction) Family History Patient reports no known family medical history. Social History Smoking Status: Former Smoker Smokeless Tobacco Use: No Drug Use: none Marital Status: single Housing Status: lives alone Occupation Status: student Current/Historical Medications Scheduled Clonazepam (Klonopin), 1 MG PO TID Clonidine Hcl (Catapres), 0.2 MG PO HS Clotrimazole (Topical) (Lotrimin Af), 1 APPLN TOP TID Duloxetine Hcl (Cymbalta), 1 CAP PO HS Lamotrigine (Lamictal), 100 MG PO HS Norethindrone & Eth Estradiol (Necon ), 1 TAB PO HS Polyethylene (Miralax), 17 GM PO qd-bid Pramipexole Dihydrochloride (Mirapex), 0.5 MG PO HS Prednisone Tab (Prednisone), 10 MG PO TID Triamcinolone Acet (Aristocort 0.1%), 1 APPLN EXT TID Scheduled PRN Diphenhydramine HCl (Diphenhydramine HCl), 25 MG PO Q6 PRN for Itching Oxycodone HCl (Oxycodone HCl), 5 MG PO Q4H PRN for Pain Rizatriptan Benzoate (Maxalt), 10 MG PO UD PRN for Migraine Allergies Coded Allergies: Metoclopramide (Verified Adverse Reaction, Intermediate, panic attacks, 12/12/16) Prochlorperazine (Verified Adverse Reaction, Intermediate, panic attack, ) Sulfa Antibiotics (Verified Adverse Reaction, Intermediate, vomiting, ) Ceftriaxone (Verified Adverse Reaction, Mild, CLAIMED FELT SKIN CRAWL; FIRE ANTS, 12/12/16) Physical Exam Vital Signs Date Time Temp Pulse Resp B/P (MAP) Pulse Ox O2 Delivery O2 Flow Rate FiO2 12/14/16 22:56 37.3 121 18 151/92 98 Room Air Physical Exam GENERAL: Awake, alert, well-appearing, in no distress HENT: Normocephalic, atraumatic. Oropharynx unremarkable. EYES: Normal conjunctiva. Sclera non-icteric. NECK: Supple. No nuchal rigidity. FROM. No JVD. RESPIRATORY: Clear to auscultation. CARDIAC: Regular rate, normal rhythm. Extremities warm and well perfused. Pulses equal. ABDOMEN: Soft, non-distended. No tenderness to palpation. No rebound or guarding. No masses. RECTAL: Deferred. MUSCULOSKELETAL: Chest examination reveals no tenderness. The back is symmetrical on inspection without obvious abnormality. There is no CVA tenderness to palpation. No joint edema. LOWER EXTREMITIES: Calves are equal size bilaterally and non-tender. No edema. No discoloration. NEURO: Normal sensorium. No sensory or motor deficits noted. SKIN: Raised erythematous macular and coalescing patches in the groin, chest, and abdomen. Non-petechial non-purpuric. Medical Decision & Procedures ED Course 2317: The patient was evaluated in room B2. A complete history and physical exam was performed. 2345: I reevaluated the patient. Discussed results and discharge instructions: She verbalized understanding and agreement. The patient is ready for discharge. Medical Decision Differential diagnoses include dermatitis, candidiasis, and allergic reaction. Will refer to DERM, needs punch biopsy or consultation; pt aware Medication Reconcilliation Current Medication List: was personally reviewed by me Blood Pressure Screening Patient's blood pressure: Elevated blood pressure Blood pressure disposition: Elevated BP felt to be situational Impression Primary Impression: Dermatitis Scribe Attestation The scribe's documentation has been prepared under my direction and personally reviewed by me in its entirety. I confirm that the note above accurately reflects all work, treatment, procedures, and medical decision making performed by me. Departure Information Dispostion Home / Self-Care Referrals No Doctor, Assigned (PCP) Michael Dominguez MD Forms HOME CARE DOCUMENTATION FORM, IMPORTANT VISIT INFORMATION, WORK / SCHOOL INSTRUCTIONS Patient Instructions ED Dermatitis Contact, My [facility]
[2016-12-14 23:50] VITALS: BP 151/92; PULSE 89; TEMP 37.3; O2SAT 98
[2016-12-16] MEDS ORDERED: RIZA10TA18 PO (20:05)
[2016-12-16] MEDS ORDERED: BCPILLS PO (22:02)
[2016-12-16] MEDS ORDERED: CETI10TA84 PO (22:02)
[2016-12-16] MEDS ORDERED: DULO60CA44 PO (22:07)
[2016-12-16] MEDS ORDERED: BND25 PO (22:07)
[2016-12-16] MEDS ORDERED: POLY335019 PO (22:07)
[2016-12-16] MEDS ORDERED: RANI150T3 PO (22:08)
[2016-12-16] MEDS ORDERED: PRED20TA PO (22:31)
[2016-12-16] MEDS ORDERED: CLON0.2T PO (22:56)
[2016-12-16] MEDS ORDERED: LAMO100T16 PO (22:56)
[2016-12-16] MEDS ORDERED: PRAM1TAB47 PO (22:56)
[2016-12-16] MEDS ORDERED: CLON1TAB3 PO (22:56)
[2016-12-27] MEDS ORDERED: AMOX875T PO (06:51)
== END 2016-12-15 00:18 | disposition home or self-care (01) ==
LOC: C.EDB 22:52
DX: L30.9 Dermatitis, unspecified (principal); F32.9 Major depressive disorder, single episode, unspecified; N73.9 Female pelvic inflammatory disease, unspecified; Z87.891 Personal history of nicotine dependence

== ENCOUNTER 2016-12-16 21:21 | Emergency (ER) | payer OTHER ==
[~2016-12-16] VITALS: Ht 162.6 cm; Wt 81.1 kg
[~2016-12-16 21:21] MED LIST changes: +RIZA10TA18 PO
[2016-12-16 21:28] VITALS: TEMP 37.3; Ht 162.6 cm; Wt 81.1 kg
[2016-12-16] MEDS ORDERED: CETI10TA84 PO (22:02)
[2016-12-16] MEDS ORDERED: BCPILLS PO (22:02)
[2016-12-16] MEDS ORDERED: DULO60CA44 PO (22:07)
[2016-12-16] MEDS ORDERED: BND25 PO (22:07)
[2016-12-16] MEDS ORDERED: POLY335019 PO (22:07)
[2016-12-16] MEDS ORDERED: RANI150T3 PO (22:08)
[2016-12-16] MEDS ORDERED: DiphenhydrAMINE HCL 50 MG/ML VIAL IM STA (22:27)
[2016-12-16] MEDS ORDERED: DEXAMETHASONE SOD INJ 10 MG/ML VIAL IM ONE (22:30)
[2016-12-16] MEDS ORDERED: PRED20TA PO (22:31)
[2016-12-16] MEDS ORDERED: PRAM1TAB47 PO (22:56)
[2016-12-16] MEDS ORDERED: CLON1TAB3 PO (22:56)
[2016-12-16] MEDS ORDERED: LAMO100T16 PO (22:56)
[2016-12-16] MEDS ORDERED: CLON0.2T PO (22:56)
[2016-12-16 23:01] VITALS: BP 124/69; PULSE 77; O2SAT 98
--- NOTE | 2016-12-16 23:32 | EMERGENCY ROOM VISIT NOTE ---
History Report prepared by Yane: Susie Cuadra Under the Supervision of: Dr. Graham Abrams M.D. First contact with patient: 22:08 Chief Complaint: RASH Stated Complaint: SEVER RASH, SPREADING HOURLY History of Present Illness The patient is a 31 year old female who presents to the Emergency Room with complaints of an episode of a rash starting a week ago. The patient states that she has this rash that wilson and itches. She states that it has been changing daily. She reports that she was at the ED for it four days ago and was put on Zantac and Zyrtec. She states that she was on 3 days of steroids previously. She reports that she also has an appointment with dermatology in February. She states that when new spots appear they hurt. She currently rates her pain as a 6 /10 in severity. The patient reports that she has tried antifungal cream and A& D ointment with no relief. She denies ever having this rash before, fever, new medications, new soaps, new detergents, new lotions, and being diabetic. Source of History: patient Onset: a week ago Position: other (global) Symptom Intensity: 6/10 Quality: burning, other (itching) Timing: other (episode) Associated Symptoms: No fevers Note: She denies ever having this rash before, new medications, new soaps, new detergents, new lotions, and being diabetic. Review of Systems See HPI for pertinent positives & negatives. A total of 10 systems reviewed and were otherwise negative. Past Medical & Surgical Medical Problems: (1) History of kidney stones (2) History of ovarian cyst (3) Major depressive disorder, recurrent, moderate (4) Nausea & vomiting (5) PID (pelvic inflammatory disease) Surgical Problems: (1) Hx of tonsillectomy (2) SBO (small bowel obstruction) Family History Patient reports no known family medical history. Social History Smoking Status: Never Smoker Drug Use: none Marital Status: single Housing Status: lives alone Occupation Status: [employer] student Current/Historical Medications Scheduled Control Pills ( Control Pills), 1 TAB PO HS Cetirizine (Zyrtec), 10 MG PO DAILY Clonazepam (Klonopin), 1 MG PO TID Clonidine Hcl (Catapres), 0.2 MG PO HS Duloxetine Hcl (Cymbalta), 60 MG PO HS Lamotrigine (Lamictal), 100 MG PO HS Polyethylene Glycol 3350 (Miralax), 17 GM PO DAILY Pramipexole Dihydrochloride (Mirapex), 0.5 MG PO HS Prednisone (Prednisone), 0 PO DAILY Ranitidine Hcl (Zantac), 1 TAB PO BID Scheduled PRN Diphenhydramine Hcl (Benadryl), 25 MG PO Q6H PRN for Itching Rizatriptan Benzoate (Maxalt), 10 MG PO UD PRN for Migraine Allergies Coded Allergies: Metoclopramide (Verified Adverse Reaction, Intermediate, panic attacks, 12/12/16) Prochlorperazine (Verified Adverse Reaction, Intermediate, panic attack, ) Sulfa Antibiotics (Verified Adverse Reaction, Intermediate, vomiting, ) Ceftriaxone (Verified Adverse Reaction, Mild, CLAIMED FELT SKIN CRAWL; FIRE ANTS, 12/12/16) Physical Exam Vital Signs Date Time Temp Pulse Resp B/P (MAP) Pulse Ox O2 Delivery O2 Flow Rate FiO2 12/16/16 23:01 77 18 124/69 98 12/16/16 21:28 37.3 128 18 140/88 97 Room Air Physical Exam GENERAL: Patient is in no acute distress. Anxious and tearful. HEENT: No acute trauma, normocephalic atraumatic, mucous membranes moist, no nasal congestion, no scleral icterus. NECK: No stridor, no adenopathy, no meningismus, trachea is midline. LUNGS: Clear to auscultation bilaterally, no wheeze, no rhonchi, breath sounds equal. HEART: Without murmurs gallops or rubs, regular rate and rhythm. ABDOMEN: Soft, nontender, bowel sounds positive, no hernias, no peritonitis. VAGINAL: No vaginal discharge. Potential ulcer like lesion in the area of skin between the posterior edge of the vagina and the anterior edge of the rectum. Viral culture obtained. No cellulitis. EXTREMITIES: No cyanosis or edema, full range of motion of all the joints without pain or difficulty, no signs for acute trauma. NEUROLOGIC: Oriented x 3, no acute motor or sensory deficits, no focal weakness. SKIN: Erythematous, patchy, slightly raised rash located on the back, at the waistband, in the groin, and the axilla. Nothing on the head or face. Does heather. No petechia. Medical Decision & Procedures Laboratory Results Test 12/16/16 22:20 Medications Administered Medications (Trade) Dose Ordered Sig/Radha Route Start Time Stop Time Status Last Admin Dose Admin Dexamethasone Sodium Phosphate (Decadron Inj) 10 mg NOW ONCE IM 12/16/16 22:30 12/16/16 22:31 DC 12/16/16 22:41 10 MG Diphenhydramine HCl (Benadryl Inj) 50 mg NOW STAT IM 12/16/16 22:27 12/16/16 22:30 DC 12/16/16 22:42 50 MG ED Course 220: The patient was evaluated in room A3. A complete history and physical exam was performed. 2226: Ordered Benadryl Inj 50 mg IM. 2229: Ordered Decadron Inj 10 mg IM. 2242: I discussed the patients case with Dr. Dominguez from [facility] dermat[facility]. He will see the patient and agrees to the steroid taper. 2251: Reevaluated the patient. Discussed results and discharge instructions: she verbalized understanding and agreement. The patient is ready for discharge. Medical Decision Differential diagnoses include environmental allergy, contact reaction, hives, herpes infection, medication reaction. The patient presents with a rash that has been present for a week. It is itchy and wilson at times. It is located along the warmer areas of her body. There was a potential herpes-like lesion in the area between the vagina and rectum, a culture was sent. There are no petechiae, there are no purpura. The patient is not febrile or toxic. She was anxious. The patient was given IM Decadron and IM Benadryl. I discussed her case with the brim stretcher hand stonecutter. The patient is being discharged on a prednisone taper. She will use Benadryl in place of Zyrtec. The patient will see dermatology in the upcoming days. If things are worsening, if she notes a fever , she can return. The cause for the rash is unclear. Consults Time Called: 2231 Consulting Physician: Dr. Dominguez- [facility] Returned Call: [phone] I discussed the patients case with Dr. Dominguez from [facility] dermat[facility]. He will see the patient and agrees to the steroid taper. Impression Primary Impression: Rash Scribe Attestation The scribe's documentation has been prepared under my direction and personally reviewed by me in its entirety. I confirm that the note above accurately reflects all work, treatment, procedures, and medical decision making performed by me. Departure Information Dispostion Home / Self-Care Prescriptions Prednisone (Prednisone) 20 Mg Tab 0 PO DAILY, #18 TAB 3 DAILY FOR 3 DAYS, THEN 2 DAILY FOR 3 DAYS, THEN 1 DAILY FOR 3 DAYS. Prov: Graham Abrams M.D. 12/16/16 Referrals No Doctor, Assigned (PCP) Forms HOME CARE DOCUMENTATION FORM, IMPORTANT VISIT INFORMATION, WORK / SCHOOL INSTRUCTIONS Patient Instructions My [facility] Additional Instructions prednisone as directed stop zyrtec and use benadryl 2 tab every 6 hours instead see dermatology as directed we will call if the cultures obtained return positive return for fever or if worsening Dr. Dominguez of [facility] [address] dermatology will see you. 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
[2016-12-20 12:12] LABS: HERPES SIMPLEX CULT SOURCE OTHER-PERINEUM; HERPES SIMPLEX VIRUS CULT ISOLATED (NOT ISOLATED)
[2016-12-25 11:58] LABS: HSVTYPE1REFLEX ONLY!DON'T ORDR ISOLATED (NOT ISOLATED); HSVTYPE2REFLEX ONLY!DON'T ORDR NOT ISOLATED (NOT ISOLATED)
[2016-12-27] MEDS ORDERED: AMOX875T PO (06:51)
== END 2016-12-16 23:02 | disposition home or self-care (01) ==
LOC: C.EDB 21:22 → C.EDA 23:02
DX: R21 Rash and other nonspecific skin eruption (principal); F32.9 Major depressive disorder, single episode, unspecified; N83.209 Unspecified ovarian cyst, unspecified side; K56.60 Unspecified intestinal obstruction; Z87.442 Personal history of urinary calculi; Z86.19 Personal history of other infectious and parasitic diseases; Z79.899 Other long term (current) drug therapy; Z88.2 Allergy status to sulfonamides; Z88.8 Allergy status to other drugs, medicaments and biological substances

== ENCOUNTER 2016-12-30 06:33 | Emergency (ER) | payer OTHER ==
[~2016-12-30] VITALS: Ht 162.6 cm; Wt 83.0 kg
[~2016-12-30 06:33] MED LIST changes: +AMOX875T PO; +BCPILLS PO; +BND25 PO; -BND25X PO; +CETI10TA84 PO; +CLON0.2T PO; +CLON1TAB3 PO; -CLOT1CRE4 TOP; +LAMO100T16 PO; -MRLP17 PO; -NORE1TAB39 PO; +POLY335019 PO; +PRAM1TAB47 PO; -PRED10TA PO; +PRED20TA PO; +RANI150T3 PO; -RXC5 PO; -TRMCR180 EXT
[2016-12-30 06:37] VITALS: TEMP 36.8; Ht 162.6 cm; Wt 83.0 kg
[2016-12-30] MEDS ORDERED: ONDANSETRON 8 MG TAB PO STA (06:56)
[2016-12-30] MEDS ORDERED: KETOROLAC TROMETHAMINE 60 MG/2 ML VIAL IM STA (06:56)
[2016-12-30] MEDS ORDERED: DiphenhydrAMINE HCL 50 MG/ML VIAL IM STA (06:56)
[2016-12-30] MEDS ORDERED: DEXAMETHASONE INJ 8 MG in SYRINGE 0 ML IM SCH (07:00)
[2016-12-30] MEDS ORDERED: ONDANSETRON 4MG OD TAB ONE (07:06)
[2016-12-30] MEDS ORDERED: DEXAMETHASONE SOD INJ 10 MG/ML VIAL ONE (07:07)
--- NOTE | 2016-12-30 07:19 | EMERGENCY ROOM VISIT NOTE ---
History Report prepared by Yane: Carol Stewart Under the Supervision of: Dr. Balwinder Francis D.O. First contact with patient: 06:44 Chief Complaint: HEADACHE Stated Complaint: MIGRAINE History of Present Illness The patient is a 31 year old female who presents to the Emergency Room with complaints of a persistent migraine-headache that began 24 hours ago. She currently rates her discomfort as a 6/10 in severity. The patient reports a history of migraines for the past five years. She states that she has an appointment with her PCP on Sunday to get a referral to a neurologist for her migraines. The patient states that this migraine began yesterday morning when she woke, noting that it gradually worsened over the past 24 hours. She states that she took two doses of Maxalt without relief of her symptoms. The patient additionally reports light sensitivity, nausea, and vomiting. She states that this feels like a typical migraine. The patient states that she has had a rough month, noting that she has been to the emergency department multiple times. 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 The patient reports recent sinus congestion, noting that on Sunday she was started on Amoxicillin for a sinus infection. She additionally reports a history of kidney stones and anxiety. Pt denies change in vision, fevers, chest pain, shortness of breath, diarrhea, pain with urination, and weakness or numbness in arms or legs. Per review of records, the patient has had 12 visits to the ER since November. Source of History: patient, other (records) Onset: 24 hours ago Position: head Symptom Intensity: 6/10 Quality: ache (migraine) Timing: worsening (gradually), other (persistent) Associated Symptoms: + nausea, + vomiting Note: Associated Symptoms: light sensitivity, sinus congestion Review of Systems See HPI for pertinent positives & negatives. A total of 10 systems reviewed and were otherwise negative. Past Medical & Surgical Medical Problems: (1) History of kidney stones (2) History of ovarian cyst (3) Major depressive disorder, recurrent, moderate (4) Nausea & vomiting (5) PID (pelvic inflammatory disease) Surgical Problems: (1) Hx of tonsillectomy (2) SBO (small bowel obstruction) Family History Patient reports no known family medical history. Social History Smoking Status: Never Smoker Drug Use: none Marital Status: single Housing Status: lives alone Occupation Status: [employer] student Current/Historical Medications Scheduled Amoxicillin & Pot Clavulanate (Augmentin 875-125 mg), 1 TAB PO BID Control Pills ( Control Pills), 1 TAB PO HS Cetirizine (Zyrtec), 10 MG PO DAILY Clonazepam (Klonopin), 1 MG PO TID Clonidine Hcl (Catapres), 0.2 MG PO HS Duloxetine Hcl (Cymbalta), 60 MG PO HS Lamotrigine (Lamictal), 100 MG PO HS Polyethylene Glycol 3350 (Miralax), 17 GM PO DAILY Pramipexole Dihydrochloride (Mirapex), 0.5 MG PO HS Ranitidine Hcl (Zantac), 1 TAB PO BID Scheduled PRN Diphenhydramine Hcl (Benadryl), 25 MG PO Q6H PRN for Itching Rizatriptan Benzoate (Maxalt), 10 MG PO UD PRN for Migraine Allergies Coded Allergies: Metoclopramide (Verified Adverse Reaction, Intermediate, panic attacks, ) Prochlorperazine (Verified Adverse Reaction, Intermediate, panic attack, ) Sulfa Antibiotics (Verified Adverse Reaction, Intermediate, vomiting, 12/30) Ceftriaxone (Verified Adverse Reaction, Mild, CLAIMED FELT SKIN CRAWL; FIRE ANTS, 12/30/16) Physical Exam Vital Signs Date Time Temp Pulse Resp B/P (MAP) Pulse Ox O2 Delivery O2 Flow Rate FiO2 12/30/16 06:37 36.8 115 18 157/101 98 Room Air Physical Exam GENERAL: alert, sitting up in bed with webster over head, disheveled, well nourished, no distress, non-toxic EYE EXAM: normal conjunctiva, PERRL and EOM's intact. EARS: TMs clear bilaterally OROPHARYNX: no exudate, no erythema, lips, buccal mucosa, and tongue normal and mucous membranes are moist NECK: supple, no nuchal rigidity, no adenopathy, non-tender LUNGS: Clear to auscultation. Normal chest wall mechanics HEART: no murmurs, S1 normal and S2 normal ABDOMEN: abdomen soft, non-tender, normo-active bowel sounds, no masses, no rebound or guarding. BACK: Back is symmetrical on inspection and there is no deformity, no midline tenderness, no CVA tenderness. SKIN: no rashes and no bruising UPPER EXTREMITIES: upper extremities are grossly normal. LOWER EXTREMITIES: No pitting edema. NEURO EXAM: Normal sensorium, cranial nerves II-XII intact, normal speech, no weakness of arms, no weakness of legs. No drift. Finger to nose intact. Gross sensation intact. Medical Decision & Procedures Medications Administered Medications (Trade) Dose Ordered Sig/Radha Route Start Time Stop Time Status Last Admin Dose Admin Diphenhydramine HCl (Benadryl Inj) 50 mg NOW STAT IM 12/30/16 06:56 12/30/16 06:58 DC 12/30/16 07:10 50 MG Ketorolac Tromethamine (Toradol Inj) 60 mg NOW STAT IM 12/30/16 06:56 12/30/16 06:58 DC 12/30/16 07:10 60 MG Ondansetron HCl (Zofran Odt) 8 mg STK-MED ONCE .ROUTE 12/30/16 07:06 12/30/16 07:07 DC 12/30/16 07:08 8 MG Dexamethasone Sodium Phosphate (Decadron Inj) 10 mg STK-MED ONCE .ROUTE 12/30/16 07:07 12/30/16 07:08 DC 12/30/16 07:09 8 MG ED Course ED COURSE: Vital signs were reviewed and showed tachycardic and hypertensive The patients medical record was reviewed The above diagnostic studies were performed and reviewed. ED treatments and interventions as stated above. 0650: The patient was evaluated in room B2. A complete history and physical examination was performed. 0656: Ordered Zofran Tab 8 mg PO, Toradol Inj 60 mg IM, Benadryl Inj 50 mg IM, Dexamethasone Sodium Phosphate 8 mg/Syringe 2 ml @ 1 mls/min IM. 0750: Upon reevaluation, the patient is feeling better.I discussed my findings with the patient and she understands and agrees with the treatment plan. Based on the patients age, coexisting illnesses, exam and lab findings the decision to treat as an outpatient was made. The patient remained stable while under my care. The patient appeared well at the time of discharge. Medical Decision Differential Diagnosis includes but is not limited to headache, tension headache , cluster headache, migraine, subarachnoid hemorrhage, meningitis, mass, central venous thrombus, concussion, trauma and epidural/subdural hemorrhage. Patient is a 31-year-old female that presents to ER for headache. She has a history of migraines which have been present over the past 5 years. She notes that this feels like her typical migraine and is unchanged in any way. Headache came on gradually and progressively worsened in the right worship region no fevers. No signs meningitis or encephalitis on exam. No nuchal rigidity. Patient's completely neurologically intact. No weakness or numbness. No change in vision. Headache came on gradually and progressively worsened. Nothing to suggest a subarachnoid hemorrhage. Vitals show mild hypertension and slight tachycardia likely secondary to pain. Allergies were reviewed. Recent visits were reviewed. Patient was given IM Decadron, Toradol and Benadryl. Patient had resolution of her nausea/vomiting with these medications. Her headache also began to gradually improved. She was updated at bedside. She was discharged to follow-up with PCP/neurology and instructed not drive for the remainder of the day. Discussed with Pt concerning signs and symptoms to watch out for. Pt was instructed to follow up with their PCP and discussed with the patient their option to return to the ED at anytime for persistent or worsening symptoms. The appropriate anticipatory guidance and out- patient management, including indications for return to the emergency department , were explained at length to the patient and understood. Medication Reconcilliation Current Medication List: was personally reviewed by me Blood Pressure Screening Patient's blood pressure: Elevated blood pressure Blood pressure disposition: Elevated BP felt to be situational, Did not require urgent referral Impression Primary Impression: Headache Scribe Attestation The scribe's documentation has been prepared under my direction and personally reviewed by me in its entirety. I confirm that the note above accurately reflects all work, treatment, procedures, and medical decision making performed by me. Departure Information Dispostion Home / Self-Care Referrals [facility] (PCP) Forms HOME CARE DOCUMENTATION FORM, IMPORTANT VISIT INFORMATION Patient Instructions Headache Pain, My [facility] Additional Instructions Please follow up with your primary care doctor or if you are a student, [facility] with in the next 24 hours. Any worsening of your symptoms, please return to the ED immediately. This includes any fevers greater than 100.4, worsening pain, stiff neck, chest pain, shortness breath, persistent nausea, vomiting, unable to eat or drink, or any other concerning signs or symptoms from your standpoint. You were given medications during this visit that will inhibit your ability to drive, operate machinery and work. Please do NOT drive, operate machinery, drink alcohol or work for the next 12hrs. You were found to have a blood pressure greater than 120 systolic over 90 diastolic. Due to the new Medicare guidelines, we are now recommending that you follow up with your primary care doctor in regards to this elevated blood pressure. Problem Qualifiers Primary Impression: Headache Headache type: unspecified Headache chronicity pattern: acute headache Intractability: not intractable Qualified Codes: R51 - Headache
[2016-12-30 08:00] VITALS: BP 146/93; PULSE 98; O2SAT 100
== END 2016-12-30 08:01 | disposition home or self-care (01) ==
LOC: C.EDB 06:34
DX: G43.909 Migraine, unspecified, not intractable, without status migrainosus (principal); R11.0 Nausea; F32.9 Major depressive disorder, single episode, unspecified; Z79.899 Other long term (current) drug therapy

== ENCOUNTER 2017-01-10 15:44 | Emergency (ER) | payer OTHER ==
[~2017-01-10] VITALS: Ht 162.6 cm; Wt 82.7 kg
[~2017-01-10 15:44] MED LIST changes: -PRED20TA PO
[2017-01-10 16:07] VITALS: TEMP 37.3; Ht 162.6 cm; Wt 82.7 kg
[2017-01-10] MEDS ORDERED: SODIUM CHLORIDE 0.9% 1000ML 1,000 ML IV STA (17:02)
[2017-01-10] MEDS ORDERED: ONDANSETRON 8 MG/54 ML D5W IV ONE (17:15)
[2017-01-10 17:20] LABS: PREG INTERNAL NEGATIVE QC NEG CLEAR BACKGROUND; PREG INTERNAL POSITIVE QC POS CONTROL LINE
[2017-01-10 18:09] LABS: BASO % 0.1 %; BASO ABS # 0.01 K/uL (0-0.2); COMPLETE YES; HEMATOCRIT 39.8 % (37-47); IG% 0.3 %; LYMPH % 25.4 %; LYMPH ABS # 2.78 K/uL (1.2-3.4); MEAN CELL VOLUME 94.8 fL (80-100); MEAN CORPUSCULAR HEMOGLOBIN 29.5 pg (25-34); MEAN CORPUSCULAR HGB CONC 31.2 g/dl (32-36); MEAN PLATELET VOLUME 9.1 fL (7.4-10.4); MONO % 6.3 %; NEUT % 66.9 %; PLATELET COUNT 440 K/uL (130-400); WHITE BLOOD COUNT 10.96 K/uL (4.8-10.8)
--- NOTE | 2017-01-10 18:16 | EMERGENCY ROOM VISIT NOTE ---
History First contact with patient: 16:41 Chief Complaint: GI ASSESSMENT Stated Complaint: SENT FROM URGENT CARE, SUSPECT ILEUS Nursing Triage Summary: constipation, nausea with eating, intermittent low grade fever, pain in lower back and abdomen evaluated by [facility] and sent to ed to r/o ileus symptoms began 5 days ago History of Present Illness The patient is a 31 year old female who presents to the Emergency Room with complaints of 4 day history of constipation and abdominal pain. The patient denies any bowel movements over the last four days and began have lower abdominal and epigastric discomfort yesterday in addition to lower back discomfort. The lower back pain is constant and the abdominal pain has been sharp, 7/10, intermittent, and not resolving with any treatment. The patient was seen at [facility] earlier today, given 60mg IV Toradol and then referred to the ED. The patient states that she has taken 4 cap fulls of Miralax daily over the last few days in addition to Senna. The patient has also had nausea and vomiting with eating since the abdominal pain began yesterday. She denies any blood in her vomit. She has not had any flatulence since yesterday. She denies any fever, chills, chest pain, or shortness of breath. Review of Systems See HPI for pertinent positives and negatives. A total of ten systems were reviewed and were otherwise negative. Past Medical/Surgical History Medical Problems: (1) History of kidney stones (2) History of ovarian cyst (3) Major depressive disorder, recurrent, moderate (4) Nausea & vomiting (5) PID (pelvic inflammatory disease) Surgical Problems: (1) Hx of tonsillectomy (2) SBO (small bowel obstruction) Family History Patient reports no known family medical history. Social History Smoking Status: Never Smoker Drug Use: none Marital Status: single Housing Status: lives alone Occupation Status: [employer] student Current/Historical Medications Scheduled Control Pills ( Control Pills), 1 TAB PO HS Cetirizine (Zyrtec), 10 MG PO PRN Clonazepam (Klonopin), 1 MG PO TID Clonidine Hcl (Catapres), 0.2 MG PO HS Duloxetine Hcl (Cymbalta), 60 MG PO HS Lamotrigine (Lamictal), 100 MG PO HS Polyethylene Glycol 3350 (Miralax), 17 GM PO DAILY Pramipexole Dihydrochloride (Mirapex), 0.5 MG PO HS Ranitidine Hcl (Zantac), 150 MG PO DAILY Scheduled PRN Diphenhydramine Hcl (Benadryl), 25 MG PO Q6H PRN for Itching Rizatriptan Benzoate (Maxalt), 10 MG PO UD PRN for Migraine Physical Exam Vital Signs Date Time Temp Pulse Resp B/P (MAP) Pulse Ox O2 Delivery O2 Flow Rate FiO2 01/10/17 19:19 76 15 141/104 99 Room Air 01/10/17 17:45 79 19 138/102 99 Room Air 01/10/17 16:07 37.3 84 20 154/101 98 Room Air Physical Exam GENERAL: Awake, alert, well-appearing, in no distress HENT: Normocephalic, atraumatic. Oropharynx unremarkable. EYES: Normal conjunctiva. Sclera non-icteric. NECK: Supple. No nuchal rigidity. FROM. No JVD. RESPIRATORY: Clear to auscultation. CARDIAC: Regular rate, normal rhythm. Extremities warm and well perfused. Pulses equal. ABDOMEN: Soft, non-distended. Tenderness to palpation in epigastric region and all 4 abdominal quadrants. No rebound or guarding. No masses. RECTAL: Deferred. MUSCULOSKELETAL: Chest examination reveals no tenderness. The back is symmetrical on inspection without obvious abnormality. There is no CVA tenderness to palpation. No joint edema. LOWER EXTREMITIES: Calves are equal size bilaterally and non-tender. No edema. No discoloration. NEURO: Normal sensorium. No sensory or motor deficits noted. SKIN: No rash or jaundice noted. Medical Decision & Procedures Laboratory Results 01/10/17 17:50 Red Blood Count 4.20, Mean Corpuscular Volume 94.8, Mean Corpuscular Hemoglobin 29.5, Mean Corpuscular Hemoglobin Concent 31.2, Mean Platelet Volume 9.1, Neutrophils (%) (Auto) 66.9, Lymphocytes (%) (Auto) 25.4, Monocytes (%) (Auto) 6.3, Eosinophils (%) (Auto) 1.0, Basophils (%) (Auto) 0.1, Neutrophils # (Auto) 7.34, Lymphocytes # (Auto) 2.78, Monocytes # (Auto) 0.69, Eosinophils # (Auto) 0.11, Basophils # (Auto) 0.01 01/10/17 17:50 Test 01/10/17 16:45 01/10/17 17:50 Urine Test NEG (NEG) White Blood Count 10.96 K/uL (4.8-10.8) Red Blood Count 4.20 M/uL (4.2-5.4) Hemoglobin 12.4 g/dL (12.0-16.0) Hematocrit 39.8 % (37-47) Mean Corpuscular Volume 94.8 fL (80-100) Mean Corpuscular Hemoglobin 29.5 pg (25-34) Mean Corpuscular Hemoglobin Concent 31.2 g/dl (32-36) Platelet Count 440 K/uL (130-400) Mean Platelet Volume 9.1 fL (7.4-10.4) Neutrophils (%) (Auto) 66.9 % Lymphocytes (%) (Auto) 25.4 % Monocytes (%) (Auto) 6.3 % Eosinophils (%) (Auto) 1.0 % Basophils (%) (Auto) 0.1 % Neutrophils # (Auto) 7.34 K/uL (1.4-6.5) Lymphocytes # (Auto) 2.78 K/uL (1.2-3.4) Monocytes # (Auto) 0.69 K/uL (0.11-0.59) Eosinophils # (Auto) 0.11 K/uL (0-0.5) Basophils # (Auto) 0.01 K/uL (0-0.2) RDW Standard Deviation 49.7 fL (36.4-46.3) RDW Coefficient of Variation 14.5 % (11.5-14.5) Immature Granulocyte % (Auto) 0.3 % Immature Granulocyte # (Auto) 0.03 K/uL (0.00-0.02) Anion Gap 9.0 mmol/L (3-11) Est Creatinine Clear Calc Drug Dose 97.5 ml/min Estimated GFR () 102.9 Estimated GFR (Non- 88.8 BUN/Creatinine Ratio 10.8 (10-20) Calcium Level 8.8 mg/dl (8.5-10.1) Total Bilirubin 0.4 mg/dl (0.2-1) Direct Bilirubin 0.1 mg/dl (0-0.2) Aspartate Amino Transf (AST/SGOT) 18 U/L (15-37) Alanine Aminotransferase (ALT/SGPT) 30 U/L (12-78) Alkaline Phosphatase 82 U/L (45-117) Total Protein 8.0 gm/dl (6.4-8.2) Albumin 4.0 gm/dl (3.4-5.0) Lipase 207 U/L (73-393) Medications Administered Medications (Trade) Dose Ordered Sig/Radha Route Start Time Stop Time Status Last Admin Dose Admin Sodium Chloride 1,000 ml @ 999 mls/hr Q1H1M STAT IV 01/10/17 17:02 01/10/17 18:02 DC 01/10/17 17:52 999 MLS/HR Ondansetron HCl (Zofran 8mg Iv) 8 mg NOW ONCE IV 01/10/17 17:15 01/10/17 17:16 DC 01/10/17 17:52 8 MG Diphenhydramine HCl (Benadryl Inj) 25 mg NOW STAT IV 01/10/17 18:25 01/10/17 18:28 DC 01/10/17 18:46 25 MG Dicyclomine HCl (Bentyl Tab) 20 mg ONE STAT PO 01/10/17 18:25 01/10/17 18:28 DC 01/10/17 19:17 20 MG ED Course Patient is a 31 year old female that presents with a 4 day history of constipation 1705: Patient examined and evaluated - On exam patient complains of tenderness in all 4 abdominal quadrants - PDMP checked: Patient written for 15 tablets of 5mg Hydrocodone on 12/09/16 - Imaging Ordered: Abdominal X-Ray - Medications ordered: Zofran 8mg IV, 1L NS - Labs Ordered: CBC, BMP, Lipase, LFTs, Urine 1830: Patient re-evaluated - Complaining of continued pain and anxiety - Bentyl 20mg PO - Benadryl 25mg IV 1910: Patient re-evaluated - Reviewed results of normal abdominal X-ray and labs with patient - Patient states discomfort is moderately better - Patient agreeable to taking Magnesium citrate and discharge with anti-emetic medications Medical Decision Patient is a 31 year old female that presents with a 4 day history of constipation Etiologies such as drug induced constipation, appendicitis, diverticulitis, obstruction, inflammatory bowel disease, renal colic, PUD, biliary pathology, pancreatitis, mesenteric ischemia, aortic pathology, infections, genitourinary, UTI, perforated viscus, as well as others were entertained. Patient was initially evaluated for obstructed causes of constipation. Abdominal X-Ray revealed normal gas patter with mild stool load constipation. Other lab work including lipase and LFTs appeared within normal limits and CBC was positive for a mildly elevated WBC. Patient discomfort mildly improved with combination of Bentyl, Benadryl, and Zofran. Patient was able to tolerate PO medications as well. Patient constipation is suspected to be caused by recent narcotic use, where patient was found to have a recent prescription for oxycodone 5mg (15 tabs) through the PDMP. Patient was agreeable to taking Magnesium Citrate on discharge and following up with the PCP. [place] Drug Monitoring Program Search Results: patient reviewed within database Impression Primary Impression: Constipation Departure Information Dispostion Home / Self-Care Condition GOOD Referrals No Doctor, Assigned (PCP) Patient Instructions My [facility] Additional Instructions ABDOMINAL PAIN INSTRUCTIONS: Acetaminophen(Tylenol) may be used for fever or pain. Use 1000mg every six hours as needed. Avoid using more than 4000mg in a 24 hour period. Zofran tablets 4mg: Take one every six hours as needed for nausea. Rest and drink plenty of fluids as tolerated. Slow sips of water or sports drinks are recommended instead of large amounts all at once. Continue current medications. Once your stomach is settled start with a clear liquid diet (jello, soup broth, etc.) and then advance as tolerated. You should avoid full, heavy meals for about 24 hrs from the time your symptoms resolved. Return to the emergency department in 8-12 hours for reevaluation or sooner if the pain worsens, migrates to the right lower part of your abdomen, or you feel it necessary. Return to the ER immediately for worsening or persistent abdominal pain, vomiting, fevers, chest pains, difficulty breathing, black or bloody stools, worsening of your condition, or as needed. Follow up with your primary physician in 2-3 days for a recheck of your current condition. Resident Tracking Resident Involvement: Resident Care Provided Care Provided: Adult ED Problem Qualifiers Primary Impression: Constipation Constipation type: unspecified constipation type Qualified Codes: K59.00 - Constipation, unspecified
--- NOTE | 2017-01-10 18:24 | DIAGNOSTIC IMAGING REPORT ---
ABDOMEN 2VIEW W/PA CHEST RTN HISTORY: 31 years-old Female Abdominal pain acute generalized abdominal pain COMPARISON: IVP 12/09/2016 TECHNIQUE: Frontal view of the chest with erect and supine views of the abdomen FINDINGS: Cardiomediastinal and hilar silhouettes are within normal limits. There is no pneumothorax, pleural effusion, focal airspace consolidation or overt pulmonary edema. Bones of the chest are grossly intact. No pneumoperitoneum on the upright projection. Moderate volume of formed stool is noted throughout the colon, notably within the right hemicolon. No urolith or fracture. No organomegaly. IMPRESSION: 1. No acute cardiopulmonary process. 2. Nonobstructive bowel gas pattern without pneumoperitoneum. 3. Moderate stool burden. The above report was generated using voice recognition software. It may contain grammatical, syntax or spelling errors. Electronically signed by: Malcolm Bowles M.D. 01/10/2017 6:23 PM Dictated Date/Time: 01/10/2017 6:21 PM
[2017-01-10 18:25] LABS: BUN/CREATININE RATIO 10.8 (10-20); CALCIUM 8.8 mg/dl (8.5-10.1); CREATININE 0.87 mg/dl (0.60-1.20); POTASSIUM 3.3 mmol/L (3.5-5.1)
[2017-01-10] MEDS ORDERED: DiphenhydrAMINE HCL 50 MG/ML VIAL IV STA (18:25)
[2017-01-10] MEDS ORDERED: DICYCLOMINE HCL 20 MG TAB PO STA (18:25)
[2017-01-10] MEDS ORDERED: DICYCLOMINE HCL 10 MG CAP ONE ×2 (18:42→18:43)
[2017-01-10] MEDS ORDERED: MAGNESIUM CITRATE 296 ML/BTL PO STA (19:32)
[2017-01-10] MEDS ORDERED: ONDANSETRON HOME PACK 4MG OD TAB PO ONE (19:45)
[2017-01-10 19:53] VITALS: BP 139/102; PULSE 78; O2SAT 98
== END 2017-01-10 19:50 | disposition home or self-care (01) ==
LOC: C.EDB 15:46 → C.EDC 19:50
DX: K59.00 Constipation, unspecified (principal); Z87.442 Personal history of urinary calculi; F32.9 Major depressive disorder, single episode, unspecified; Z79.3 Long term (current) use of hormonal contraceptives; Z79.899 Other long term (current) drug therapy

== ENCOUNTER 2017-01-11 09:31 | Emergency (ER) | payer OTHER ==
[~2017-01-11] VITALS: Ht 162.6 cm; Wt 83.7 kg
[2017-01-11 09:41] VITALS: Ht 162.6 cm; Wt 83.7 kg
[2017-01-11] MEDS ORDERED: SODIUM CHLORIDE 0.9% 1000ML 1,000 ML IV STA (10:52)
[2017-01-11] MEDS ORDERED: SODIUM CHLORIDE 0.9% 1000ML 1,000 ML IV ONE (10:52)
[2017-01-11] MEDS ORDERED: ONDANSETRON INJ 2 MG/ML 2 ML VIAL IV STA (10:52)
[2017-01-11] MEDS ORDERED: KETOROLAC TROMETHAMINE 30 MG/ML VIAL IV STA (10:52)
[2017-01-11 11:41] LABS: BASO % 0.2 %; BASO ABS # 0.02 K/uL (0-0.2); COMPLETE YES; EOS % 1.3 %; HEMATOCRIT 36.9 % (37-47); IG% 0.1 %; LYMPH % 20.7 %; LYMPH ABS # 1.87 K/uL (1.2-3.4); MEAN CELL VOLUME 94.9 fL (80-100); MEAN CORPUSCULAR HEMOGLOBIN 30.1 pg (25-34); MEAN CORPUSCULAR HGB CONC 31.7 g/dl (32-36); MEAN PLATELET VOLUME 9.2 fL (7.4-10.4); MONO % 6.4 %; NEUT % 71.3 %; PLATELET COUNT 440 K/uL (130-400); RED BLOOD COUNT 3.89 M/uL (4.2-5.4); WHITE BLOOD COUNT 9.03 K/uL (4.8-10.8)
[2017-01-11 12:06] LABS: ALKALINE PHOSPHATASE 74 U/L (45-117); ALT/SGPT 27 U/L (12-78); AST/SGOT 14 U/L (15-37); BLOOD UREA NITROGEN 10 mg/dl (7-18); BUN/CREATININE RATIO 12.9 (10-20); CALCIUM 8.7 mg/dl (8.5-10.1); CARBON DIOXIDE 25 mmol/L (21-32); CHLORIDE 109 mmol/L (98-107); CREATININE 0.78 mg/dl (0.60-1.20); GLUCOSE 89 mg/dl (70-99); POTASSIUM 4.2 mmol/L (3.5-5.1); SODIUM 141 mmol/L (136-145)
[2017-01-11 12:12] LABS: PREG INTERNAL NEGATIVE QC NEG CLEAR BACKGROUND; PREG INTERNAL POSITIVE QC POS CONTROL LINE
[2017-01-11 12:21] LABS: URINE APPEARANCE CLEAR (CLEAR); URINE BILIRUBIN NEG (NEG); URINE COLOR YELLOW; URINE NITRITE NEG (NEG); URINE SPECIFIC GRAVITY 1.022 (1.000-1.030); UROBILINOGEN NEG (NEG)
[2017-01-11 12:24] LABS: MANUAL MICROSCOPIC REQUIRED? NO; REVIEW REQ? NO
[2017-01-11] MEDS ORDERED: HYDROmorphone INJ 1 MG/ML SYR IV STA (12:40)
[2017-01-11] MEDS ORDERED: DiphenhydrAMINE HCL 50 MG/ML VIAL ONE (13:24)
--- NOTE | 2017-01-11 14:21 | EMERGENCY ROOM VISIT NOTE ---
History Report prepared by Yane: Gerardo Hernandez Under the Supervision of: Dr. Joselito Palmer M.D. First contact with patient: 10:45 Chief Complaint: ABDOMINAL PAIN Stated Complaint: RECURRING ABD./RT FLANK PAIN-WORSENING History of Present Illness The patient is a 31 year old female who presents to the Emergency Room with complaints of worsening RLQ abdominal pain beginning today. She was seen at Urgent Care yesterday for abdominal pain with constipation, and was referred to the ED for concern of ileus. She was given a bottle of magnesium citrate and discharged home. The patient now complains of worsening pain along with diarrhea , and vomiting. She also complains of dizziness, low back pain, leg cramping, and weakness. She denies any urinary symptoms, vaginal bleeding, or known fevers. The patient denies chance of . She states that she has been struggling with chronic abdominal pain intermittently. She had an upper endoscopy five years ago which was normal. Source of History: patient Onset: Today Position: abdomen (RLQ) Timing: worsening Associated Symptoms: + vomiting, + back pain (lower), + diarrhea, + weakness , No fevers (known), No urinary symptoms Note: The patient denies any vaginal bleeding. She also complains of dizziness and leg cramping. Review of Systems See HPI for pertinent positives & negatives. A total of 10 systems reviewed and were otherwise negative. Past Medical & Surgical Medical Problems: (1) History of kidney stones (2) History of ovarian cyst (3) Major depressive disorder, recurrent, moderate (4) Nausea & vomiting (5) PID (pelvic inflammatory disease) Surgical Problems: (1) Hx of tonsillectomy (2) SBO (small bowel obstruction) Old medical records were reviewed. Nurse's notes were reviewed and I agree with. Family History Patient reports no known family medical history. Social History Smoking Status: Never Smoker Drug Use: none Marital Status: single Housing Status: lives alone Occupation Status: [employer] student Current/Historical Medications Scheduled Control Pills ( Control Pills), 1 TAB PO HS Cetirizine (Zyrtec), 10 MG PO PRN Clonazepam (Klonopin), 1 MG PO TID Clonidine Hcl (Catapres), 0.2 MG PO HS Duloxetine Hcl (Cymbalta), 60 MG PO HS Lamotrigine (Lamictal), 100 MG PO HS Polyethylene Glycol 3350 (Miralax), 17 GM PO DAILY Pramipexole Dihydrochloride (Mirapex), 0.5 MG PO HS Ranitidine Hcl (Zantac), 150 MG PO DAILY Scheduled PRN Diphenhydramine Hcl (Benadryl), 25 MG PO Q6H PRN for Itching Rizatriptan Benzoate (Maxalt), 10 MG PO UD PRN for Migraine Allergies Coded Allergies: Metoclopramide (Verified Adverse Reaction, Intermediate, panic attacks, ) Prochlorperazine (Verified Adverse Reaction, Intermediate, panic attack, 01/10/17) Sulfa Antibiotics (Verified Adverse Reaction, Intermediate, vomiting, 01/10) Ceftriaxone (Verified Adverse Reaction, Mild, CLAIMED FELT SKIN CRAWL; FIRE ANTS, 01/10/17) Physical Exam Vital Signs Date Time Temp Pulse Resp B/P (MAP) Pulse Ox O2 Delivery O2 Flow Rate FiO2 01/11/17 14:23 37.0 90 18 158/110 100 01/11/17 13:29 98 18 158/106 98 Room Air 01/11/17 12:28 77 18 145/101 99 Room Air 98 01/11/17 09:41 37.0 104 20 99 Room Air Physical Exam General: Well developed well nourished in no acute distress, breathing comfortably on room air. Normal speech HEENT: Normal cephalic atraumatic. Pupils are equal round and reactive to light. Extraocular movements are intact. Oropharynx is pink with moist mucous membranes. No swelling of the mouth lips or tongue. Neck: Supple with a midline trachea. No meningeal signs or stiffness, no JVD or bruits. No Stridor. Chest: Clear to auscultation bilaterally. No wheezes or rhonchi. No increased work of breathing. Heart: regular rate and rhythm. Abdomen: Soft nontender, nondistended without rebound guarding or rigidity. Extremities: No cyanosis clubbing or edema. No calf tenderness or assymetry Spine/Back. Non tender to palpation. No CVA tenderness Skin: Good turgor without rashes. Neurologic exam: Cranial nerves two through 12 are intact. Motor and sensation are intact and symmetrical throughout. Medical Decision & Procedures Laboratory Results 01/11/17 11:15 Red Blood Count 3.89, Mean Corpuscular Volume 94.9, Mean Corpuscular Hemoglobin 30.1, Mean Corpuscular Hemoglobin Concent 31.7, Mean Platelet Volume 9.2, Neutrophils (%) (Auto) 71.3, Lymphocytes (%) (Auto) 20.7, Monocytes (%) (Auto) 6.4, Eosinophils (%) (Auto) 1.3, Basophils (%) (Auto) 0.2, Neutrophils # (Auto) 6.43, Lymphocytes # (Auto) 1.87, Monocytes # (Auto) 0.58, Eosinophils # (Auto) 0.12, Basophils # (Auto) 0.02 01/11/17 11:15 Test 01/11/17 11:15 White Blood Count 9.03 K/uL (4.8-10.8) Red Blood Count 3.89 M/uL (4.2-5.4) Hemoglobin 11.7 g/dL (12.0-16.0) Hematocrit 36.9 % (37-47) Mean Corpuscular Volume 94.9 fL (80-100) Mean Corpuscular Hemoglobin 30.1 pg (25-34) Mean Corpuscular Hemoglobin Concent 31.7 g/dl (32-36) Platelet Count 440 K/uL (130-400) Mean Platelet Volume 9.2 fL (7.4-10.4) Neutrophils (%) (Auto) 71.3 % Lymphocytes (%) (Auto) 20.7 % Monocytes (%) (Auto) 6.4 % Eosinophils (%) (Auto) 1.3 % Basophils (%) (Auto) 0.2 % Neutrophils # (Auto) 6.43 K/uL (1.4-6.5) Lymphocytes # (Auto) 1.87 K/uL (1.2-3.4) Monocytes # (Auto) 0.58 K/uL (0.11-0.59) Eosinophils # (Auto) 0.12 K/uL (0-0.5) Basophils # (Auto) 0.02 K/uL (0-0.2) RDW Standard Deviation 49.3 fL (36.4-46.3) RDW Coefficient of Variation 14.4 % (11.5-14.5) Immature Granulocyte % (Auto) 0.1 % Immature Granulocyte # (Auto) 0.01 K/uL (0.00-0.02) Urine Color YELLOW Urine Appearance CLEAR (CLEAR) Urine pH 6.0 (4.5-7.5) Urine Specific [place] 1.022 (1.000-1.030) Urine Protein NEG (NEG) Urine Glucose (UA) NEG (NEG) Urine Ketones NEG (NEG) Urine Occult Blood NEG (NEG) Urine Nitrite NEG (NEG) Urine Bilirubin NEG (NEG) Urine Urobilinogen NEG (NEG) Urine Leukocyte Esterase NEG (NEG) Anion Gap 7.0 mmol/L (3-11) Est Creatinine Clear Calc Drug Dose 109.4 ml/min Estimated GFR () 117.4 Estimated GFR (Non- 101.3 BUN/Creatinine Ratio 12.9 (10-20) Calcium Level 8.7 mg/dl (8.5-10.1) Total Bilirubin 0.2 mg/dl (0.2-1) Direct Bilirubin < 0.1 mg/dl (0-0.2) Aspartate Amino Transf (AST/SGOT) 14 U/L (15-37) Alanine Aminotransferase (ALT/SGPT) 27 U/L (12-78) Alkaline Phosphatase 74 U/L (45-117) Total Protein 7.3 gm/dl (6.4-8.2) Albumin 3.4 gm/dl (3.4-5.0) Lipase 292 U/L (73-393) Human Chorionic Gonadotropin, Qual NEG (NEG) Laboratory studies as stated above per my review. Medications Administered Medications (Trade) Dose Ordered Sig/Radha Route Start Time Stop Time Status Last Admin Dose Admin Sodium Chloride 1,000 ml @ 999 mls/hr Q1H1M STAT IV 01/11/17 10:52 01/11/17 11:52 DC 01/11/17 10:52 999 MLS/HR Sodium Chloride 1,000 ml @ 150 mls/hr Q6H40M ONCE IV 01/11/17 10:52 01/11/17 14:45 DC 01/11/17 10:52 150 MLS/HR Ondansetron HCl (Zofran Inj) 4 mg NOW STAT IV 01/11/17 10:52 01/11/17 11:04 DC 01/11/17 11:19 4 MG Ketorolac Tromethamine (Toradol Inj) 30 mg NOW STAT IV 01/11/17 10:52 01/11/17 11:04 DC 01/11/17 11:19 30 MG Hydromorphone HCl (Dilaudid Inj) 1 mg NOW STAT IV 01/11/17 12:40 01/11/17 12:42 DC 01/11/17 12:56 1 MG Diphenhydramine HCl (Benadryl Inj) 50 mg STK-MED ONCE .ROUTE 01/11/17 13:24 01/11/17 13:25 DC 01/11/17 13:28 25 MG ED Course 1046: Past medical records reviewed. The patient was evaluated in room C10, and a complete history and physical examination were performed. 1052: Ordered Toradol Inj 30 mg IV, Zofran Inj 4 mg IV, Sodium Chloride 1000 ml @ 150 mls/hr IV, Sodium Chloride 1000 ml @ 999 mls/hr IV. 1240: I reassessed the patient. She is still complaining of pain. Ordered Dilaudid Inj 1 mg IV. 1320: I checked in on the patient. She states that she feels itchy, but her pain has improved. 1324: Ordered Benadryl Inj 50 mg IV. 1405: Upon reevaluation, the patient is resting comfortably. I discussed the results and treatment plan with her. She verbalized agreement of the treatment plan. The patient was discharged home. Medical Decision Differentials include, but are not limited to; dehydration, constipation, chronic abdominal pain, pancreatitis, hepatitis, kidney stone and electrolyte or metabolic abnormality. This patient comes in as described above. She has abdominal pain. She was seen yesterday for constipation and abdominal pain and started having bowel movements and now has more abdominal pain and nausea and vomiting. Abdomen is benign on exam. IV access established and she was hydrated with IV normal saline. She has no fever or white count to suggest infection. She has no focal tenderness to suggest appendicitis or cholecystitis. She has normal electrolytes nothing to suggest liver , gallbladder, or pancreas disease. She has nothing to suggest urinary tract infection or acute urinary problem. She is not . She was given Toradol IV. She started having more pain was given Dilaudid 1 mg IV. She tolerated this well but had a little bit of itching but no allergic reaction. She was given Benadryl. She is feeling much better when like to go home. Have reviewed her records, she's been here multiple times for abdominal pain. She's had 3 CAT scans the last 2 months and I do not feel the need to repeat another CAT scan on certainly concerned about radiation exposure. Her CAT scans and not showed any definite pathology. She' s had no kidney stones. I did recommend she follow up with the GI specialist. She is just getting established the primary doctor. She may ultimately endoscopy or further workup to rule out IBS inflammatory bowel disease celiac disease etc. She was happy with the plan and discharged home. Impression Primary Impression: Diffuse abdominal pain Scribe Attestation The scribe's documentation has been prepared under my direction and personally reviewed by me in its entirety. I confirm that the note above accurately reflects all work, treatment, procedures, and medical decision making performed by me. Departure Information Dispostion Home / Self-Care Referrals No Doctor, Assigned (PCP) Forms Call Back Authorization, HOME CARE DOCUMENTATION FORM, IMPORTANT VISIT INFORMATION Patient Instructions My [facility] Additional Instructions Rest Follow-up with your doctor, you may need to be seen by a stomach specialist Return if: Increasing pain, worsening of symptoms, fever or chills, not tolerating fluids, any new problems or concerns
[2017-01-11 14:23] VITALS: BP 158/110; PULSE 90; TEMP 37; O2SAT 100
== END 2017-01-11 14:13 | disposition home or self-care (01) ==
LOC: C.EDB 09:33 → C.EDC 14:13
DX: R10.9 Unspecified abdominal pain (principal); F32.9 Major depressive disorder, single episode, unspecified; N73.9 Female pelvic inflammatory disease, unspecified

== ENCOUNTER 2017-01-23 19:48 | Emergency (ER) | payer OTHER ==
[~2017-01-23] VITALS: Ht 162.6 cm; Wt 84.5 kg
[~2017-01-23 19:48] MED LIST changes: -AMOX875T PO; -BCPILLS PO; -CETI10TA84 PO; -CLON0.2T PO; -CLON1TAB3 PO; -DULO60CA44 PO; -LAMO100T16 PO; -POLY335019 PO; -PRAM1TAB47 PO; -RIZA10TA18 PO
[2017-01-23 20:03] VITALS: TEMP 37.2; Ht 162.6 cm; Wt 84.5 kg
[2017-01-23] MEDS ORDERED: RIZA10TA18 PO (20:05)
[2017-01-23] MEDS ORDERED: DiphenhydrAMINE HCL 50 MG/ML VIAL IV STA (20:33)
[2017-01-23] MEDS ORDERED: SODIUM CHLORIDE 0.9% 1000ML 1,000 ML IV STA (20:33)
[2017-01-23] MEDS ORDERED: KETOROLAC TROMETHAMINE 30 MG/ML VIAL IV STA (20:33)
[2017-01-23] MEDS ORDERED: DEXAMETHASONE SOD INJ 10 MG/ML VIAL IV STA (20:33)
[2017-01-23] MEDS ORDERED: PROMETHAZINE HCL INJ 12.5 MG in SODIUM CHLORIDE 0.9% 50ML 50 ML IV STA (20:33)
[2017-01-23] MEDS ORDERED: IBUP-103 PO (20:40)
[2017-01-23] MEDS ORDERED: DIHYDROERGOTAMINE MESYLATE 1 MG/ML VIAL IM ONE (20:45)
--- NOTE | 2017-01-23 20:58 | EMERGENCY ROOM VISIT NOTE ---
History Report prepared by Yane: Larry Fernandez Under the Supervision of: Dr. Joselito Palmer M.D. First contact with patient: 20:22 Chief Complaint: HEADACHE Stated Complaint: MIGRAINE FOR OVER 24 HRS History of Present Illness The patient is a 31 year old female who presents to the Emergency Room with complaints of constant migraine headache beginning yesterday. She describes her symptoms as a spike. The patient states her symptoms began yesterday with constant nausea, blurry vision, and the sense of itchiness all over her body. She reports she vomited yesterday, but she has not since. The patient notes she has a history of migraines, and she gets these every few weeks. She states she takes a preventative plan of Lamictal every night and Rizatriptan when her migraines begin. The patient reports she does not think they are working, and she needs to see a neurologist in here. 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 The patient states her neurologist back home told her neck tension also increases the amount of migraines she gets. She denies fevers, chills, numbness, the chance of being , and weakness. Source of History: patient Onset: yesterday Position: head Quality: ache Timing: constant Associated Symptoms: + nausea, + vomiting, No fevers, No chills, No weakness , No numbness Note: Associated symptoms: blurry vision, sense of itchiness all over body Review of Systems See HPI for pertinent positives & negatives. A total of 10 systems reviewed and were otherwise negative. Past Medical & Surgical Medical Problems: (1) History of kidney stones (2) History of ovarian cyst (3) Major depressive disorder, recurrent, moderate (4) Nausea & vomiting (5) PID (pelvic inflammatory disease) Surgical Problems: (1) Hx of tonsillectomy (2) SBO (small bowel obstruction) Family History Patient reports no known family medical history. Social History Smoking Status: Former Smoker Drug Use: none Marital Status: single Housing Status: lives alone Occupation Status: [employer] student Current/Historical Medications Scheduled Control Pills ( Control Pills), 1 TAB PO HS Clonazepam (Klonopin), 1 MG PO TID Clonidine Hcl (Catapres), 0.2 MG PO HS Duloxetine Hcl (Cymbalta), 60 MG PO HS Lamotrigine (Lamictal), 100 MG PO HS Pramipexole Dihydrochloride (Mirapex), 0.5 MG PO HS Scheduled PRN Cetirizine (Zyrtec), 10 MG PO DAILY PRN for Allergy Symptoms Ibuprofen Tab (Advil), 600 MG PO Q8 PRN for Pain Polyethylene Glycol 3350 (Miralax), 17 GM PO DAILY PRN for Constipation Rizatriptan Benzoate (Maxalt), 10 MG PO UD PRN for Migraine Allergies Coded Allergies: Metoclopramide (Verified Adverse Reaction, Intermediate, panic attacks, ) Prochlorperazine (Verified Adverse Reaction, Intermediate, panic attack, 01/10/17) Sulfa Antibiotics (Verified Adverse Reaction, Intermediate, vomiting, 01/10) Ceftriaxone (Verified Adverse Reaction, Mild, CLAIMED FELT SKIN CRAWL; FIRE ANTS, 01/10/17) Physical Exam Vital Signs Date Time Temp Pulse Resp B/P (MAP) Pulse Ox O2 Delivery O2 Flow Rate FiO2 01/23/17 21:45 63 15 140/94 100 Room Air 01/23/17 21:13 79 17 150/104 99 Room Air 01/23/17 20:03 37.2 88 18 133/88 99 Room Air Physical Exam General: Non-ill appearing young female complaining of a headache - otherwise normal. HEENT: Normal cephalic atraumatic. Pupils are equal round and reactive to light. Extraocular movements are intact. Oropharynx is pink with moist mucous membranes. No swelling of the mouth lips or tongue. Neck: Supple with a midline trachea. No meningeal signs or stiffness, no JVD or bruits. No Stridor. Chest: Clear to auscultation bilaterally. No wheezes or rhonchi. No increased work of breathing. Heart: regular rate and rhythm. Abdomen: Soft nontender, nondistended without rebound guarding or rigidity. Extremities: No cyanosis clubbing or edema. No calf tenderness or assymetry Spine/Back. Non tender to palpation. No CVA tenderness Skin: Good turgor without rashes. Neurologic exam: Cranial nerves two through 12 are intact. Motor and sensation are intact and symmetrical throughout. Finger to nose intact, no tremor. Medical Decision & Procedures Medications Administered Medications (Trade) Dose Ordered Sig/Radha Route Start Time Stop Time Status Last Admin Dose Admin Diphenhydramine HCl (Benadryl Inj) 50 mg NOW STAT IV 01/23/17 20:33 01/23/17 20:36 DC 01/23/17 21:01 50 MG Ketorolac Tromethamine (Toradol Inj) 30 mg NOW STAT IV 01/23/17 20:33 01/23/17 20:36 DC 01/23/17 21:01 30 MG Dexamethasone Sodium Phosphate (Decadron Inj) 10 mg NOW STAT IV 01/23/17 20:33 01/23/17 20:36 DC 01/23/17 21:02 10 MG Promethazine HCl 12.5 mg/Sodium Chloride 50.5 ml @ 204 mls/hr NOW STAT IV 01/23/17 20:33 01/23/17 20:47 DC 01/23/17 21:01 204 MLS/HR Sodium Chloride 1,000 ml @ 999 mls/hr Q1H1M STAT IV 01/23/17 20:33 01/23/17 21:33 DC 01/23/17 21:00 999 MLS/HR Dihydroergotamine Mesylate (D.H.E. 45 Inj) 1 mg NOW ONCE IM 01/23/17 20:45 01/23/17 20:46 DC 01/23/17 21:02 1 MG Lorazepam (Ativan Inj) 1 mg NOW STAT IV 01/23/17 21:53 01/23/17 21:54 DC 01/23/17 22:10 1 MG ED Course 2023: Past medical records reviewed. The patient was evaluated in room B03B, and a complete history and physical examination were performed. 2032: Ordered Sodium Chloride 1000 ml @ 999 mls/hr IV, Promethazine HCl 12.5 mg/ Sodium Chloride 50.5 ml @ 204mls/hr IV, Decadron Inj 10mg IV, Toradol Inj 30mg IV, Benadryl Inj 50mg IV 2044: Ordered D.H.E. 1mg IM 2151: I reevaluated the patient and updated her of her current exam findings. She states she is starting to get restless. 2152: Ordered Ativan 1mg IV 2220: Upon reevaluation, the patient is resting comfortably. I discussed the results and treatment plan with her. She verbalized agreement of the treatment plan. The patient was discharged home. Medical Decision Differentials include, but are not limited to; migraine, intracranial process, electrolyte or metabolic abnormality, infection. Medication Reconcilliation Current Medication List: was personally reviewed by me Blood Pressure Screening Patient's blood pressure: Elevated blood pressure Blood pressure disposition: Elevated BP felt to be situational Impression Primary Impression: Migraine Scribe Attestation The scribe's documentation has been prepared under my direction and personally reviewed by me in its entirety. I confirm that the note above accurately reflects all work, treatment, procedures, and medical decision making performed by me. Departure Information Dispostion Home / Self-Care Referrals No Doctor, Assigned (PCP) Forms HOME CARE DOCUMENTATION FORM, IMPORTANT VISIT INFORMATION Patient Instructions My [facility] Additional Instructions Rest. Drink plenty of fluids. Return if: Worsening of symptoms, numbness or weakness, fever or chills, any new problems or concerns.
[2017-01-23] MEDS ORDERED: LORAZEPAM 2 MG/ML 1 ML VIAL IV STA (21:53)
[2017-01-23] MEDS ORDERED: BCPILLS PO (22:02)
[2017-01-23] MEDS ORDERED: CETI10TA84 PO (22:02)
[2017-01-23] MEDS ORDERED: DULO60CA44 PO (22:07)
[2017-01-23] MEDS ORDERED: POLY335019 PO (22:07)
[2017-01-23 22:36] VITALS: BP 138/92; PULSE 87; O2SAT 96
[2017-01-23] MEDS ORDERED: PRAM1TAB47 PO (22:56)
[2017-01-23] MEDS ORDERED: LAMO100T16 PO (22:56)
[2017-01-23] MEDS ORDERED: CLON0.2T PO (22:56)
[2017-01-23] MEDS ORDERED: CLON1TAB3 PO (22:56)
== END 2017-01-23 22:35 | disposition home or self-care (01) ==
LOC: C.EDB 19:49
DX: G40.909 Epilepsy, unspecified, not intractable, without status epilepticus (principal); N83.209 Unspecified ovarian cyst, unspecified side; F32.9 Major depressive disorder, single episode, unspecified; K58.9 Irritable bowel syndrome, unspecified; Z87.440 Personal history of urinary (tract) infections; Z79.899 Other long term (current) drug therapy; Z87.81 Personal history of (healed) traumatic fracture; Z88.2 Allergy status to sulfonamides; Z88.8 Allergy status to other drugs, medicaments and biological substances

== ENCOUNTER 2017-01-28 09:37 | Emergency (ER) | payer OTHER ==
[~2017-01-28] VITALS: Ht 162.6 cm; Wt 83.6 kg
[~2017-01-28 09:37] MED LIST changes: +BCPILLS PO; -BND25 PO; +CETI10TA84 PO; +CLON0.2T PO; +CLON1TAB3 PO; +DULO60CA44 PO; +IBUP-103 PO; +LAMO100T16 PO; +POLY335019 PO; +PRAM1TAB47 PO; -RANI150T3 PO; +RIZA10TA18 PO
[2017-01-28 09:44] VITALS: TEMP 36.8; Ht 162.6 cm; Wt 83.6 kg
[2017-01-28] MEDS ORDERED: DiphenhydrAMINE HCL 50 MG/ML VIAL IV STA (10:24)
[2017-01-28] MEDS ORDERED: PROMETHAZINE HCL INJ 12.5 MG in SODIUM CHLORIDE 0.9% 50ML 50 ML IV STA (10:24)
[2017-01-28] MEDS ORDERED: KETOROLAC TROMETHAMINE 30 MG/ML VIAL IV STA (10:24)
[2017-01-28] MEDS ORDERED: SODIUM CHLORIDE 0.9% 1000ML 1,000 ML IV STA (10:24)
[2017-01-28] MEDS ORDERED: HYDR-4330 PO (10:26)
[2017-01-28] MEDS ORDERED: ONDA4TAB10 SL (10:26)
--- NOTE | 2017-01-28 10:35 | EMERGENCY ROOM VISIT NOTE ---
History Report prepared by Yane: Dereck Obrien Under the Supervision of: Dr. Veronica Colby M.D. First contact with patient: 10:07 Chief Complaint: HEADACHE Stated Complaint: ACUTE MIGRAINE SINCE LAST NIGHT History of Present Illness The patient is a 31 year old female who presents to the Emergency Room with complaints of a constant migraine beginning last night. The patient states that she has a history of migraines, and states that this is her second migraine in the last two weeks. She notes that her migraine is centralized to the right side of her head, across her eyes, and at the base of her jaw. She notes that she takes medication for her migraines, but has not found relief to her current symptoms. She also complains of abdominal pain and vomiting. She denies any recent head injury, fever, or chance of . Source of History: patient Onset: last night Position: head Quality: other (migraine) Timing: constant Associated Symptoms: + vomiting, + abdominal pain, No fevers Note: she denies any recent head injury or chance of Review of Systems See HPI for pertinent positives & negatives. A total of 10 systems reviewed and were otherwise negative. Past Medical & Surgical Medical Problems: (1) History of kidney stones (2) History of ovarian cyst (3) Major depressive disorder, recurrent, moderate (4) Nausea & vomiting (5) PID (pelvic inflammatory disease) Surgical Problems: (1) Hx of tonsillectomy (2) SBO (small bowel obstruction) Family History Patient reports no known family medical history. 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 Current/Historical Medications Scheduled Control Pills ( Control Pills), 1 TAB PO HS Clonidine Hcl (Catapres), 0.2 MG PO HS Duloxetine Hcl (Cymbalta), 60 MG PO HS Lamotrigine (Lamictal), 100 MG PO HS Pramipexole Dihydrochloride (Mirapex), 0.5 MG PO HS Scheduled PRN Cetirizine (Zyrtec), 10 MG PO DAILY PRN for Allergy Symptoms Clonazepam (Klonopin), 1 MG PO TID PRN for Hydrocodone-Acetaminophen (Lortab 5-325 mg), 1 TAB PO Q6 PRN for Pain Ibuprofen Tab (Advil), 600 MG PO Q8 PRN for Pain Ondasetron Odt (Zofran Odt), 4 MG SL Q6H PRN for Nausea or Vomiting Polyethylene Glycol 3350 (Miralax), 17 GM PO DAILY PRN for Constipation Rizatriptan Benzoate (Maxalt), 10 MG PO UD PRN for Migraine Allergies Coded Allergies: Metoclopramide (Verified Adverse Reaction, Intermediate, panic attacks, ) Prochlorperazine (Verified Adverse Reaction, Intermediate, panic attack, 01/28/17) Sulfa Antibiotics (Verified Adverse Reaction, Intermediate, vomiting, ) Ceftriaxone (Verified Adverse Reaction, Mild, CLAIMED FELT SKIN CRAWL; FIRE ANTS, 01/28/17) Physical Exam Vital Signs Date Time Temp Pulse Resp B/P (MAP) Pulse Ox O2 Delivery O2 Flow Rate FiO2 01/28/17 12:19 78 16 125/99 98 Room Air 01/28/17 10:54 85 01/28/17 10:51 87 20 144/115 98 Room Air 01/28/17 09:44 36.8 88 20 152/97 100 Room Air Physical Exam Vital signs reviewed. General: Well-appearing, in no significant distress. HEENT: No scleral icterus, PERRLA, neck supple. Atraumatic. No meningeal signs. Cardiovascular: Regular rate and rhythm, no extra sounds. Pulmonary: Clear to auscultation bilaterally, normal work of breathing. Abdomen: Soft, nontender, nondistended, positive bowel sounds. Musculoskeletal: Atraumatic, no peripheral edema. Neurologic: Patient awake alert and oriented x 3, full strength in all 4 extremities. Cranial nerves 2 through 12 grossly intact. Skin: Warm, dry, no rash Medical Decision & Procedures Laboratory Results 01/28/17 10:45 Red Blood Count 4.11, Mean Corpuscular Volume 92.9, Mean Corpuscular Hemoglobin 30.9, Mean Corpuscular Hemoglobin Concent 33.2, Mean Platelet Volume 9.4, Neutrophils (%) (Auto) 49.8, Lymphocytes (%) (Auto) 40.1, Monocytes (%) (Auto) 7.6, Eosinophils (%) (Auto) 1.9, Basophils (%) (Auto) 0.4, Neutrophils # (Auto) 4.25, Lymphocytes # (Auto) 3.42, Monocytes # (Auto) 0.65, Eosinophils # (Auto) 0.16, Basophils # (Auto) 0.03 01/28/17 10:45 Test 01/28/17 10:45 White Blood Count 8.53 K/uL (4.8-10.8) Red Blood Count 4.11 M/uL (4.2-5.4) Hemoglobin 12.7 g/dL (12.0-16.0) Hematocrit 38.2 % (37-47) Mean Corpuscular Volume 92.9 fL (80-100) Mean Corpuscular Hemoglobin 30.9 pg (25-34) Mean Corpuscular Hemoglobin Concent 33.2 g/dl (32-36) Platelet Count 408 K/uL (130-400) Mean Platelet Volume 9.4 fL (7.4-10.4) Neutrophils (%) (Auto) 49.8 % Lymphocytes (%) (Auto) 40.1 % Monocytes (%) (Auto) 7.6 % Eosinophils (%) (Auto) 1.9 % Basophils (%) (Auto) 0.4 % Neutrophils # (Auto) 4.25 K/uL (1.4-6.5) Lymphocytes # (Auto) 3.42 K/uL (1.2-3.4) Monocytes # (Auto) 0.65 K/uL (0.11-0.59) Eosinophils # (Auto) 0.16 K/uL (0-0.5) Basophils # (Auto) 0.03 K/uL (0-0.2) RDW Standard Deviation 45.8 fL (36.4-46.3) RDW Coefficient of Variation 13.5 % (11.5-14.5) Immature Granulocyte % (Auto) 0.2 % Immature Granulocyte # (Auto) 0.02 K/uL (0.00-0.02) Anion Gap 7.0 mmol/L (3-11) Est Creatinine Clear Calc Drug Dose 142.2 ml/min Estimated GFR () 140.8 Estimated GFR (Non- 121.5 BUN/Creatinine Ratio 25.0 (10-20) Calcium Level 8.4 mg/dl (8.5-10.1) Total Bilirubin 0.1 mg/dl (0.2-1) Direct Bilirubin < 0.1 mg/dl (0-0.2) Aspartate Amino Transf (AST/SGOT) 13 U/L (15-37) Alanine Aminotransferase (ALT/SGPT) 35 U/L (12-78) Alkaline Phosphatase 69 U/L (45-117) Total Protein 7.5 gm/dl (6.4-8.2) Albumin 3.5 gm/dl (3.4-5.0) Laboratory results per my review. Medications Administered Medications (Trade) Dose Ordered Sig/Radha Route Start Time Stop Time Status Last Admin Dose Admin Ketorolac Tromethamine (Toradol Inj) 30 mg NOW STAT IV 01/28/17 10:24 01/28/17 10:26 DC 01/28/17 10:43 30 MG Promethazine HCl 12.5 mg/Sodium Chloride 50.5 ml @ 204 mls/hr NOW STAT IV 01/28/17 10:24 01/28/17 10:38 DC 01/28/17 11:02 204 MLS/HR Diphenhydramine HCl (Benadryl Inj) 50 mg NOW STAT IV 01/28/17 10:24 01/28/17 10:26 DC 01/28/17 10:43 50 MG Sodium Chloride 1,000 ml @ 999 mls/hr Q1H1M STAT IV 01/28/17 10:24 01/28/17 11:24 DC 01/28/17 10:43 999 MLS/HR Acetaminophen (Tylenol Tab) 650 mg NOW STAT PO 01/28/17 12:21 01/28/17 12:22 DC 01/28/17 12:36 650 MG ED Course 1021: Past medical records reviewed. The patient was evaluated in room A12. A complete history and physical examination was performed. 1024: Sodium Chloride 1000 ml @ 999 mls/hr IV, Benadryl Inj 50mg IV, Promethazine HCl 12.5mg/Sodium Chloride 20.5ml @ 204 mls/hr IV, Toradol Inj 30mg IV 1221: Tylenol Tab 650mg PO 1217: I reevaluated and updated the patient. She is doing better but is still experiencing some pain. She was given a Tylenol and will be discharged home. 1223: Upon reevaluation, the patient appeared to have improvement of her symptoms. I discussed findings with her. She verbalized agreement of the treatment plan. The patient was discharged home. Medical Decision Differential diagnosis: Intracranial hemorrhage, intracranial mass, migraine headache, tension headache , sinusitis, meningitis This patient was evaluated and appeared to be in no significant distress. IV access was obtained and laboratory work was drawn. The patient was medicated with IV Toradol, IV Compazine and Benadryl. She was hydrated with normal saline solution. Laboratory work is fairly unrevealing. The headache is similar to previous headaches, therefore no further imaging was performed. On reevaluation the patient had significant improvement. She was given Tylenol 650 mg by mouth for continued mild discomfort. She was discharged to follow-up with her PCP and consider neurologic referral. She will return to the ER for worsening of symptoms or any medical concerns. Medication Reconcilliation Current Medication List: was personally reviewed by me Blood Pressure Screening Patient's blood pressure: Elevated blood pressure Blood pressure disposition: Elevated BP felt to be situational Impression Primary Impression: Migraine Scribe Attestation The scribe's documentation has been prepared under my direction and personally reviewed by me in its entirety. I confirm that the note above accurately reflects all work, treatment, procedures, and medical decision making performed by me. Departure Information Dispostion Home / Self-Care Referrals No Doctor, Assigned (PCP) Forms HOME CARE DOCUMENTATION FORM, IMPORTANT VISIT INFORMATION Patient Instructions My [facility] Additional Instructions Diagnosis: Headache Please drink plenty of clear fluids. Follow-up with Dr. Willett for reevaluation and further management. Consider referral to neurology if needed. Return to the ER for worsening of symptoms or any medical concerns.
[2017-01-28 10:55] LABS: BASO % 0.4 %; BASO ABS # 0.03 K/uL (0-0.2); COMPLETE YES; EOS % 1.9 %; HEMATOCRIT 38.2 % (37-47); IG% 0.2 %; LYMPH % 40.1 %; LYMPH ABS # 3.42 K/uL (1.2-3.4); MEAN CELL VOLUME 92.9 fL (80-100); MEAN CORPUSCULAR HEMOGLOBIN 30.9 pg (25-34); MEAN CORPUSCULAR HGB CONC 33.2 g/dl (32-36); MEAN PLATELET VOLUME 9.4 fL (7.4-10.4); MONO % 7.6 %; NEUT % 49.8 %; PLATELET COUNT 408 K/uL (130-400); RED BLOOD COUNT 4.11 M/uL (4.2-5.4); WHITE BLOOD COUNT 8.53 K/uL (4.8-10.8)
[2017-01-28 11:12] LABS: ALT/SGPT 35 U/L (12-78); AST/SGOT 13 U/L (15-37); BLOOD UREA NITROGEN 15 mg/dl (7-18); CALCIUM 8.4 mg/dl (8.5-10.1); CARBON DIOXIDE 27 mmol/L (21-32); CHLORIDE 108 mmol/L (98-107); GLUCOSE 92 mg/dl (70-99); POTASSIUM 3.9 mmol/L (3.5-5.1); SODIUM 142 mmol/L (136-145)
[2017-01-28 11:15] LABS: ALKALINE PHOSPHATASE 69 U/L (45-117)
[2017-01-28 12:19] VITALS: BP 125/99; PULSE 78; O2SAT 98
[2017-01-28] MEDS ORDERED: ACETAMINOPHEN 325 MG TAB PO STA (12:21)
== END 2017-01-28 12:45 | disposition home or self-care (01) ==
LOC: C.EDB 09:38 → C.EDA 12:45
DX: G43.909 Migraine, unspecified, not intractable, without status migrainosus (principal); Z87.442 Personal history of urinary calculi; F32.9 Major depressive disorder, single episode, unspecified; F17.210 Nicotine dependence, cigarettes, uncomplicated; Z79.3 Long term (current) use of hormonal contraceptives; Z79.899 Other long term (current) drug therapy

== ENCOUNTER 2017-02-04 21:48 | Emergency (ER) | payer OTHER ==
[~2017-02-04] VITALS: Ht 162.6 cm; Wt 84.1 kg
[~2017-02-04 21:48] MED LIST changes: +HYDR-4330 PO; +ONDA4TAB10 SL
[2017-02-04 21:57] VITALS: TEMP 37.1; Ht 162.6 cm; Wt 84.1 kg
[2017-02-04] MEDS ORDERED: SODIUM CHLORIDE 0.9% 1000ML 1,000 ML IV STA (22:13)
[2017-02-04] MEDS ORDERED: PROMETHAZINE HCL INJ 25 MG/ML 1 ML VIAL IV STA (22:13)
[2017-02-04] MEDS ORDERED: PROMETHAZINE HCL INJ 25 MG in SODIUM CHLORIDE 0.9% 50ML 50 ML IV SCH (22:13)
[2017-02-04] MEDS ORDERED: DiphenhydrAMINE HCL 50 MG/ML VIAL IV STA (22:13)
[2017-02-04] MEDS ORDERED: DICYCLOMINE HCL 10 MG/ML 2 ML AMP IM ONE (22:15)
[2017-02-04 22:37] LABS: URINE APPEARANCE CLEAR (CLEAR); URINE BILIRUBIN NEG (NEG); URINE COLOR YELLOW; URINE NITRITE NEG (NEG); URINE PH 7.5 (4.5-7.5); URINE SPECIFIC GRAVITY 1.012 (1.000-1.030); UROBILINOGEN NEG (NEG); ZZUR CULT IF INDIC CLEAN CATCH NO
[2017-02-04 22:38] LABS: BASO % 0.3 %; BASO ABS # 0.03 K/uL (0-0.2); COMPLETE YES; HEMATOCRIT 35.6 % (37-47); IG% 0.4 %; LYMPH % 29.7 %; LYMPH ABS # 3.34 K/uL (1.2-3.4); MEAN CELL VOLUME 92.7 fL (80-100); MEAN CORPUSCULAR HEMOGLOBIN 29.9 pg (25-34); MEAN CORPUSCULAR HGB CONC 32.3 g/dl (32-36); MEAN PLATELET VOLUME 9.4 fL (7.4-10.4); MONO % 6.1 %; NEUT % 61.5 %; PLATELET COUNT 415 K/uL (130-400); RED BLOOD COUNT 3.84 M/uL (4.2-5.4); WHITE BLOOD COUNT 11.23 K/uL (4.8-10.8)
[2017-02-04 22:53] VITALS: O2SAT 96
[2017-02-04 22:53] LABS: MANUAL MICROSCOPIC REQUIRED? NO; REVIEW REQ? NO
[2017-02-04 22:56] LABS: ALT/SGPT 23 U/L (12-78); BLOOD UREA NITROGEN 8 mg/dl (7-18); BUN/CREATININE RATIO 11.1 (10-20); CALCIUM 8.5 mg/dl (8.5-10.1); CARBON DIOXIDE 24 mmol/L (21-32); CHLORIDE 107 mmol/L (98-107); GLUCOSE 87 mg/dl (70-99); POTASSIUM 3.7 mmol/L (3.5-5.1); SODIUM 139 mmol/L (136-145)
[2017-02-04 22:59] LABS: ALKALINE PHOSPHATASE 65 U/L (45-117); AST/SGOT 18 U/L (15-37)
[2017-02-04] MEDS ORDERED: LORAZEPAM 2 MG/ML 1 ML VIAL IV STA (23:43)
[2017-02-05] MEDS ORDERED: ATIVAN 1MG HOMEPACK PO ONE (00:30)
--- NOTE | 2017-02-05 00:37 | EMERGENCY ROOM VISIT NOTE ---
History First contact with patient: 22:11 Chief Complaint: GI ASSESSMENT Stated Complaint: PERSISTENT DIARRHEA, VOMITING,MIGRAINE Nursing Triage Summary: Pt c/o of migraine and diarrhea. Pt states she is scheduled for exploratory abdominal surgery for possible adhesions. Due to the anxiety she developed a migraine, took zofran and trip at 1800. History of Present Illness The patient is a 31 year old female who presents to the Emergency Room with complaints of migraine, anxiety, nausea, vomiting, diarrhea or abdominal cramping for the past day. Patient suffers from migraines and chronic abdominal pain and cramping. She follows with GI. She had a colonoscopy and endoscopy that were negative for acute findings per patient. Patient appointments with neurology in the near future. She has an appointment this week with [facility] for a laparoscopic procedure disease she is endometriosis. Patient describes the pain as throbbing, ranging in severity 8 out of 10 throughout the temporal region similar to prior. Nothing makes it better or worse. It does not radiate. Patient is currently abdominal pain as cramping, ranging in severity 4-10 throughout her abdomen. Nothing makes it better or worse. It does not radiate. No recent travel. No well water. No antibiotics recently. Patient denies chest pain, dyspnea, loss of vision, facial pain, dental pain, localized weakness, fevers, cough, congestion, cold symptoms, urinary symptoms. She is tolerating by mouth fluids and food. Review of Systems See HPI for pertinent positives & negatives. A total of 10 systems reviewed and were otherwise negative. Past Medical/Surgical History Medical Problems: (1) History of kidney stones (2) History of ovarian cyst (3) Major depressive disorder, recurrent, moderate (4) Nausea & vomiting (5) PID (pelvic inflammatory disease) Surgical Problems: (1) Hx of tonsillectomy (2) SBO (small bowel obstruction) Family History Patient reports no known family medical history. Social History Smoking Status: Former Smoker Drug Use: none Marital Status: single Housing Status: lives alone Occupation Status: [employer] student Current/Historical Medications Scheduled Control Pills ( Control Pills), 1 TAB PO HS Clonidine Hcl (Catapres), 0.2 MG PO HS Duloxetine Hcl (Cymbalta), 60 MG PO HS Lamotrigine (Lamictal), 100 MG PO HS Pramipexole Dihydrochloride (Mirapex), 0.5 MG PO HS Scheduled PRN Cetirizine (Zyrtec), 10 MG PO DAILY PRN for Allergy Symptoms Clonazepam (Klonopin), 1 MG PO TID PRN for Ondasetron Odt (Zofran Odt), 4 MG SL Q6H PRN for Nausea or Vomiting Polyethylene Glycol 3350 (Miralax), 17 GM PO DAILY PRN for Constipation Rizatriptan Benzoate (Maxalt), 10 MG PO UD PRN for Migraine Physical Exam Vital Signs Date Time Temp Pulse Resp B/P (MAP) Pulse Ox O2 Delivery O2 Flow Rate FiO2 02/04/17 23:56 76 18 145/93 100 Room Air 02/04/17 22:53 96 Room Air 02/04/17 21:57 37.1 91 18 149/92 100 Room Air Physical Exam VITALS: Vitals are noted on the nurse's note and reviewed by myself. Vital signs stable. GENERAL: Pleasant female, in no acute distress, nondiaphoretic, well-developed well-nourished. SKIN: The skin was without rashes, erythema, edema, or bruising. There is no tenting of the skin. Capillary reflex less than 2 seconds. HEAD: Normocephalic atraumatic. EARS: External auditory canals clear, tympanic membranes pearly ramos without erythema or effusion bilaterally. EYES: Pupils equal round and reactive to light and accommodation. Conjunctivae without injection, sclerae without icterus. Extraocular movements intact. NOSE: Patent, turbinates without inflammation or discharge. No sinus tenderness. MOUTH: Mucous membranes moist. Pharynx without erythema or exudate. Uvula midline. Airway patent. Tongue does not deviate. NECK: Supple without nuchal rigidity. No lymphadenopathy. No thyromegaly. Cervical spine is nontender. No JVD. HEART: Regular rate and rhythm without murmurs gallops or rubs. LUNGS: Clear to auscultation bilaterally without wheezes, rales or rhonchi. No dullness to percussion. No retractions or accessory muscle use. ABDOMEN: Positive bowel sounds x 4. Normal tympanic percussion. Soft, mild diffuse tenderness without localized pain, no CVA tenderness, without masses or organomegaly. Brown sign negative. No guarding or rebound tenderness. MUSCULOSKELETAL: No muscle atrophy, erythema, or edema noted. NEURO: Patient was alert and oriented to person place and time. Normal sensation to light and sharp touch. No focal neurological deficits. Cranial nerves II-12 grossly intact. No pronator drift. Sella-nasion intact. Medical Decision & Procedures Laboratory Results 02/04/17 22:25 Red Blood Count 3.84, Mean Corpuscular Volume 92.7, Mean Corpuscular Hemoglobin 29.9, Mean Corpuscular Hemoglobin Concent 32.3, Mean Platelet Volume 9.4, Neutrophils (%) (Auto) 61.5, Lymphocytes (%) (Auto) 29.7, Monocytes (%) (Auto) 6.1, Eosinophils (%) (Auto) 2.0, Basophils (%) (Auto) 0.3, Neutrophils # (Auto) 6.91, Lymphocytes # (Auto) 3.34, Monocytes # (Auto) 0.68, Eosinophils # (Auto) 0.23, Basophils # (Auto) 0.03 02/04/17 22:25 Test 02/04/17 22:19 02/04/17 22:25 Urine Color YELLOW Urine Appearance CLEAR (CLEAR) Urine pH 7.5 (4.5-7.5) Urine Specific [place] 1.012 (1.000-1.030) Urine Protein NEG (NEG) Urine Glucose (UA) NEG (NEG) Urine Ketones NEG (NEG) Urine Occult Blood NEG (NEG) Urine Nitrite NEG (NEG) Urine Bilirubin NEG (NEG) Urine Urobilinogen NEG (NEG) Urine Leukocyte Esterase TRACE (NEG) Urine WBC (Auto) 1-5 /hpf (0-5) Urine RBC (Auto) 0-4 /hpf (0-4) Urine Hyaline Casts (Auto) 1-5 /lpf (0-5) Urine Epithelial Cells (Auto) 5-10 /lpf (0-5) Urine Bacteria (Auto) NEG (NEG) Urine Test NEG (NEG) White Blood Count 11.23 K/uL (4.8-10.8) Red Blood Count 3.84 M/uL (4.2-5.4) Hemoglobin 11.5 g/dL (12.0-16.0) Hematocrit 35.6 % (37-47) Mean Corpuscular Volume 92.7 fL (80-100) Mean Corpuscular Hemoglobin 29.9 pg (25-34) Mean Corpuscular Hemoglobin Concent 32.3 g/dl (32-36) Platelet Count 415 K/uL (130-400) Mean Platelet Volume 9.4 fL (7.4-10.4) Neutrophils (%) (Auto) 61.5 % Lymphocytes (%) (Auto) 29.7 % Monocytes (%) (Auto) 6.1 % Eosinophils (%) (Auto) 2.0 % Basophils (%) (Auto) 0.3 % Neutrophils # (Auto) 6.91 K/uL (1.4-6.5) Lymphocytes # (Auto) 3.34 K/uL (1.2-3.4) Monocytes # (Auto) 0.68 K/uL (0.11-0.59) Eosinophils # (Auto) 0.23 K/uL (0-0.5) Basophils # (Auto) 0.03 K/uL (0-0.2) RDW Standard Deviation 50.3 fL (36.4-46.3) RDW Coefficient of Variation 14.7 % (11.5-14.5) Immature Granulocyte % (Auto) 0.4 % Immature Granulocyte # (Auto) 0.04 K/uL (0.00-0.02) Anion Gap 8.0 mmol/L (3-11) Est Creatinine Clear Calc Drug Dose 122.2 ml/min Estimated GFR () 133.8 Estimated GFR (Non- 115.5 BUN/Creatinine Ratio 11.1 (10-20) Calcium Level 8.5 mg/dl (8.5-10.1) Total Bilirubin 0.2 mg/dl (0.2-1) Direct Bilirubin < 0.1 mg/dl (0-0.2) Aspartate Amino Transf (AST/SGOT) 18 U/L (15-37) Alanine Aminotransferase (ALT/SGPT) 23 U/L (12-78) Alkaline Phosphatase 65 U/L (45-117) Total Protein 7.7 gm/dl (6.4-8.2) Albumin 3.6 gm/dl (3.4-5.0) Medications Administered Medications (Trade) Dose Ordered Sig/Radha Route Start Time Stop Time Status Last Admin Dose Admin Sodium Chloride 1,000 ml @ 999 mls/hr Q1H1M STAT IV 02/04/17 22:13 02/04/17 23:13 DC 02/04/17 22:39 999 MLS/HR Diphenhydramine HCl (Benadryl Inj) 25 mg NOW STAT IV 02/04/17 22:13 02/04/17 22:16 DC 02/04/17 22:39 25 MG Dicyclomine HCl (Bentyl Inj) 20 mg NOW ONCE IM 02/04/17 22:15 02/04/17 22:16 DC 02/04/17 22:40 20 MG Promethazine HCl 25 mg/Sodium Chloride 51 ml @ 204 mls/hr TODAY@2213 IV 02/04/17 22:13 02/04/17 22:45 DC 02/04/17 22:51 204 MLS/HR Lorazepam (Ativan Inj) 1 mg NOW STAT IV 02/04/17 23:43 02/04/17 23:44 DC 02/04/17 23:50 1 MG ED Course Prior records/ancillary studies reviewed. Triage Nursing notes reviewed. The patient's history was concerning for headache with nausea, vomiting, diarrhea and abdominal cramping. Differential diagnosis: Etiologies such as migraine headache, meningitis, sinusitis, CO exposure, ICH, SAH, infection, tumor, headache, sinus thrombosis, arterial dissection, IBS, stool infection, C. difficile, Giardia, appendicitis, colitis, diverticulitis, as well as others were entertained. Physical examination findings: As above. Non-focal. ER treatment provided: Phenergan, Benadryl, Ativan, Bentyl, IV fluids On reassessment the patient felt better. Diagnostics interpreted by me: The labs revealed mild leukocytosis, mild anemia stable per chart review. Negative hCG This appears to be consistent with headache with vomiting and diarrhea. Patient felt much better after being medicated as above. She did not have acute abdomen exam. No signs of meningitis. She is neurovascularly and neurologically intact. She is advised to follow-up as scheduled with her specialist and health services in a few days or here in the ER sooner for severe pain, fevers, vomiting, worsening signs or symptoms or as needed.. By the evaluation outlined above emergent etiologies such as meningitis, sinusitis , CO exposure, ICH, SAH, infection, temporal arteritis, tumor, sinus thrombosis , appendicitis, , arterial dissection, as well as others were deemed relatively unlikely. The pt informed about the findings as listed above. All questions were answered and pleased with the treatment. Return instructions were outlined and the patient was discharged in stable condition. Outpatient prescription management: Ativan Referral: The patient was referred back to their primary care physician for follow-up in 2 to 3 days for a recheck of the current condition. Medical Decision As above Medication Reconcilliation Current Medication List: was personally reviewed by me Blood Pressure Screening Patient's blood pressure: Normal blood pressure Impression Primary Impression: Headache Additional Impression: Nausea vomiting and diarrhea Departure Information Dispostion Home / Self-Care Condition GOOD Referrals [facility] (PCP) Patient Instructions My [facility] Additional Instructions DO NOT drive, drink alcohol, operate machinery, or perform dangerous activities today. You were given medications in the ER that can affect your ability to safely function or operate a vehicle. Ativan 1 m tablet every 8 hours as needed for severe anxiety. No alcohol or driving on this medication. This is habit-forming. Rest today in a quiet, peaceful, dark environment and get a full 8-10 hrs of sleep tonight. Avoid loud noises, smoke/smoking, alcohol, bright lights, stress, or physical exertion today to minimize the chance the headache may return. Continue current medications. Ibuprofen(Motrin, Advil) may be used for fever or pain. Use 600mg every six hours as needed. Take with food. Avoid using more than 2400mg in a 24 hour period. Do not use 2400mg per day for more than three consecutive days without physician direction. Prolonged inappropriate use can lead to stomach upset or ulcers. (AND/OR) Acetaminophen(Tylenol) may be used for fever or pain. Use 1000mg every six hours as needed. Avoid using more than 3000mg in a 24 hour period. Return to the ER for passing out, worsening headache, vision problems, neck stiffness/pain, fevers, vomiting, worsening of your condition, or as needed. Follow up with your primary physician and/or a neurologist in 2-3 days for a recheck of your current condition. Problem Qualifiers Primary Impression: Headache Headache type: unspecified Headache chronicity pattern: acute headache Intractability: not intractable Qualified Codes: R51 - Headache
[2017-02-05 00:50] VITALS: BP 138/88; PULSE 78; O2SAT 100
== END 2017-02-05 00:51 | disposition home or self-care (01) ==
LOC: C.EDB 21:50
DX: G43.909 Migraine, unspecified, not intractable, without status migrainosus (principal); R11.2 Nausea with vomiting, unspecified; R19.7 Diarrhea, unspecified; R10.9 Unspecified abdominal pain; N73.9 Female pelvic inflammatory disease, unspecified; K56.699 Other intestinal obstruction unspecified as to partial versus complete obstruction; Z87.891 Personal history of nicotine dependence; Z79.3 Long term (current) use of hormonal contraceptives

== ENCOUNTER 2017-02-05 16:07 | Emergency (ER) | payer OTHER ==
[~2017-02-05] VITALS: Ht 162.6 cm; Wt 85.9 kg
[2017-02-05 16:11] VITALS: TEMP 37; Ht 162.6 cm; Wt 85.9 kg
[2017-02-05] MEDS ORDERED: DiphenhydrAMINE HCL 50 MG/ML VIAL IV STA (16:23)
[2017-02-05] MEDS ORDERED: SODIUM CHLORIDE 0.9% 1000ML 1,000 ML IV STA (16:23)
[2017-02-05] MEDS ORDERED: DEXAMETHASONE SOD INJ 10 MG/ML VIAL IV ONE (16:30)
[2017-02-05] MEDS ORDERED: ONDANSETRON INJ 2 MG/ML 2 ML VIAL IV STA (16:38)
[2017-02-05] MEDS ORDERED: MAGNESIUM SULFATE 1GM / D5W 1 GM BAG IV STA (17:45)
[2017-02-05 19:11] VITALS: BP 145/75; PULSE 93; O2SAT 100
--- NOTE | 2017-02-05 19:28 | EMERGENCY ROOM VISIT NOTE ---
History Report prepared by Yane: Angel Quiroga Under the Supervision of: Dr. Balwinder Francis D.O. First contact with patient: 16:15 Chief Complaint: HEADACHE Stated Complaint: PERSISTENT MIGRAINE History of Present Illness The patient is a 31 year old female who presents to the Emergency Room with complaints of a sharp, pulsing frontal headache that occurred yesterday. She rates her pain a 7/10 in severity. She notes that her pain went away this morning, but came back this afternoon. She states that this feels like her typical migraines. She has a history of migraines for the past 6 years. She is also experiencing nausea, and notes that she vomited yesterday. She denies any fevers, neck pain, shortness of breath, trouble with her vision, weakness, numbness, or any other abnormal symptoms. She is trying to get a Neurologist that accepts her insurance. She notes that she ran out of her normal medications and cannot take NSAIDs because of a recent abdominal surgery. Source of History: patient Onset: yesterday Position: head Symptom Intensity: 7/10 Quality: sharp Timing: constant Associated Symptoms: + nausea, No fevers, No neck pain, No SOB, No vomiting , No weakness, No numbness Review of Systems See HPI for pertinent positives & negatives. A total of 10 systems reviewed and were otherwise negative. Past Medical & Surgical Medical Problems: (1) History of kidney stones (2) History of ovarian cyst (3) Major depressive disorder, recurrent, moderate (4) Nausea & vomiting (5) PID (pelvic inflammatory disease) Surgical Problems: (1) Hx of tonsillectomy (2) SBO (small bowel obstruction) Family History Patient reports no known family medical history. Social History Smoking Status: Current Some Day Smoker Drug Use: none Marital Status: single Housing Status: lives alone Occupation Status: [employer] student Current/Historical Medications Scheduled Control Pills ( Control Pills), 1 TAB PO HS Clonidine Hcl (Catapres), 0.2 MG PO HS Duloxetine Hcl (Cymbalta), 60 MG PO HS Lamotrigine (Lamictal), 100 MG PO HS Pramipexole Dihydrochloride (Mirapex), 0.5 MG PO HS Scheduled PRN Cetirizine (Zyrtec), 10 MG PO DAILY PRN for Allergy Symptoms Clonazepam (Klonopin), 1 MG PO TID PRN for Ondasetron Odt (Zofran Odt), 4 MG SL Q6H PRN for Nausea or Vomiting Polyethylene Glycol 3350 (Miralax), 17 GM PO DAILY PRN for Constipation Rizatriptan Benzoate (Maxalt), 10 MG PO UD PRN for Migraine Allergies Coded Allergies: Metoclopramide (Verified Adverse Reaction, Intermediate, panic attacks, ) Prochlorperazine (Verified Adverse Reaction, Intermediate, panic attack, 02/04/17) Sulfa Antibiotics (Verified Adverse Reaction, Intermediate, vomiting, ) Ceftriaxone (Verified Adverse Reaction, Mild, CLAIMED FELT SKIN CRAWL; FIRE ANTS, 02/04/17) Physical Exam Vital Signs Date Time Temp Pulse Resp B/P (MAP) Pulse Ox O2 Delivery O2 Flow Rate FiO2 02/05/17 19:11 93 16 145/75 100 02/05/17 19:03 93 16 145/75 100 Room Air 02/05/17 16:35 91 18 165/99 99 Room Air 02/05/17 16:11 37.0 98 16 149/95 100 Room Air Physical Exam GENERAL: Sitting up in bed, alert, well appearing, well nourished, no distress, non-toxic EYE EXAM: normal conjunctiva. PERRL and EOM's intact. OROPHARYNX: no exudate, no erythema, lips, buccal mucosa, and tongue normal and mucous membranes are moist NECK: supple, no nuchal rigidity, no adenopathy, non-tender LUNGS: Clear to auscultation. Normal chest wall mechanics HEART: no murmurs, S1 normal and S2 normal ABDOMEN: abdomen soft, non-tender, normo-active bowel sounds, no masses, no rebound or guarding. BACK: Back is symmetrical on inspection and there is no deformity, no midline tenderness, no CVA tenderness. SKIN: no rashes and no bruising UPPER EXTREMITIES: upper extremities are grossly normal. LOWER EXTREMITIES: No pitting edema. NEURO EXAM: Normal sensorium, cranial nerves II-XII intact, normal speech, no weakness of arms, no weakness of legs. No drift. Finger to nose intact. Gross sensation intact. Ambulated without difficulty. Medical Decision & Procedures Medications Administered Medications (Trade) Dose Ordered Sig/Radha Route Start Time Stop Time Status Last Admin Dose Admin Sodium Chloride 1,000 ml @ 999 mls/hr Q1H1M STAT IV 02/05/17 16:23 02/05/17 17:23 DC 02/05/17 17:00 999 MLS/HR Diphenhydramine HCl (Benadryl Inj) 50 mg NOW STAT IV 02/05/17 16:23 02/05/17 16:25 DC 02/05/17 16:49 50 MG Dexamethasone Sodium Phosphate (Decadron Inj) 10 mg NOW ONCE IV 02/05/17 16:30 02/05/17 16:31 DC 02/05/17 16:48 10 MG Ondansetron HCl (Zofran Inj) 4 mg NOW STAT IV 02/05/17 16:38 02/05/17 16:39 DC 02/05/17 16:49 4 MG Magnesium Sulfate (Magnesium Sulfate) 1 gm NOW STAT IV 02/05/17 17:45 02/05/17 17:46 DC 02/05/17 18:10 1 GM ED Course ED COURSE: Vital signs were reviewed and showed tachycardia and hypertension. The patients medical record was reviewed The above diagnostic studies were performed and reviewed. ED treatments and interventions as stated above. 1615: The patient was evaluated in room B11B. A complete history and physical examination was performed. 1623: Ordered Benadryl 50 mg IV, Sodium Chloride 1000 ml @ 999 mls/hr IV 1630: Ordered Decadron Inj 10 mg IV 1638: Ordered Zofran Inj 4 mg I 1736: The patient's symptoms have improved slightly. 1745: Ordered Magnesium Sulfate 1 gm IV 1807: Upon reevaluation, the patient is resting. I discussed my findings with the patient and she understands and agrees with the treatment plan. Based on the patients age, coexisting illnesses, exam and lab findings the decision to treat as an outpatient was made. The patient remained stable while under my care. The patient appeared well at the time of discharge. Medical Decision Differential Diagnosis includes but is not limited to headache, tension headache , cluster headache, migraine, subarachnoid hemorrhage, meningitis, mass, central venous thrombus, concussion, trauma and epidural/subdural hemorrhage. Patient is a 31-year-old female who presents to ER for headache. She notes that she has been getting migraines for the past 6 years. This is completely consistent with her previous headaches and unchanged in any way. Frontal headache which is sharp stabbing. No weakness or numbness in her arms or legs. Admits to nausea and photophobia. Completely neurologically intact. She declined a CT. Multiple recent visits. IV fluids along with magnesium, steroids and Benadryl were given. She declined Toradol and Compazine. Toradol secondary to recent surgery coming up on . Afebrile. No signs meningitis or encephalitis. Nothing to suggest subarachnoid. Headache came on gradually and progressively worsened starting midday today. Discussed with Pt concerning signs and symptoms to watch out for. Pt was instructed to follow up with their PCP and discussed with the patient their option to return to the ED at anytime for persistent or worsening symptoms. The appropriate anticipatory guidance and out-patient management, including indications for return to the emergency department, were explained at length to the patient and understood. Medication Reconcilliation Current Medication List: was personally reviewed by me Blood Pressure Screening Patient's blood pressure: Elevated blood pressure Blood pressure disposition: Elevated BP felt to be situational Impression Primary Impression: Cephalgia Scribe Attestation The scribe's documentation has been prepared under my direction and personally reviewed by me in its entirety. I confirm that the note above accurately reflects all work, treatment, procedures, and medical decision making performed by me. Departure Information Dispostion Home / Self-Care Referrals [facility] (PCP) Forms HOME CARE DOCUMENTATION FORM, IMPORTANT VISIT INFORMATION Patient Instructions Headache Pain, My [facility] Additional Instructions Please follow up with your primary care doctor or if you are a student, [facility] with in the next 24 hours. Any worsening of your symptoms, please return to the ED immediately. This includes any fevers greater than 100.4, worsening pain, chest pain, shortness breath, persistent nausea, vomiting, unable to eat or drink, or any other concerning signs or symptoms from your standpoint. You were given medications during this visit that will inhibit your ability to drive, operate machinery and work. Please do NOT drive, operate machinery, drink alcohol or work for the next 12hrs. Problem Qualifiers Primary Impression: Cephalgia Headache type: unspecified Headache chronicity pattern: acute headache Intractability: not intractable Qualified Codes: R51 - Headache
== END 2017-02-05 19:11 | disposition home or self-care (01) ==
LOC: C.EDB 16:08
DX: R51 Headache (principal); N73.9 Female pelvic inflammatory disease, unspecified; F17.200 Nicotine dependence, unspecified, uncomplicated

== ENCOUNTER 2017-02-07 11:51 | Emergency (ER) | payer OTHER ==
[~2017-02-07] VITALS: Ht 162.6 cm; Wt 84.7 kg
[~2017-02-07 11:51] MED LIST changes: -HYDR-4330 PO; -IBUP-103 PO
[2017-02-07 11:54] VITALS: TEMP 37.1; Ht 162.6 cm; Wt 84.7 kg
[2017-02-07] MEDS ORDERED: ACET325T96 PO (12:22)
[2017-02-07] MEDS ORDERED: KETOROLAC TROMETHAMINE 30 MG/ML VIAL IV STA (12:59)
[2017-02-07 13:07] LABS: BASO % 0.2 %; BASO ABS # 0.02 K/uL (0-0.2); COMPLETE YES; EOS % 0.4 %; HEMATOCRIT 37.1 % (37-47); IG% 0.2 %; LYMPH % 34.7 %; LYMPH ABS # 3.94 K/uL (1.2-3.4); MEAN CELL VOLUME 95.1 fL (80-100); MEAN CORPUSCULAR HGB CONC 31.5 g/dl (32-36); MEAN PLATELET VOLUME 9.6 fL (7.4-10.4); MONO % 6.8 %; NEUT % 57.7 %; PLATELET COUNT 445 K/uL (130-400); WHITE BLOOD COUNT 11.36 K/uL (4.8-10.8)
[2017-02-07 13:09] LABS: PREG INTERNAL NEGATIVE QC NEG CLEAR BACKGROUND; PREG INTERNAL POSITIVE QC POS CONTROL LINE
[2017-02-07 13:12] LABS: URINE APPEARANCE CLEAR (CLEAR); URINE BILIRUBIN NEG (NEG); URINE COLOR DK YELLOW; URINE NITRITE NEG (NEG); URINE PH 6.5 (4.5-7.5); URINE SPECIFIC GRAVITY 1.029 (1.000-1.030); UROBILINOGEN NEG (NEG); ZZUR CULT IF INDIC CLEAN CATCH NO
[2017-02-07 13:13] LABS: MANUAL MICROSCOPIC REQUIRED? NO; REVIEW REQ? NO
[2017-02-07] MEDS ORDERED: OPTIRAY 320 IV PRN (13:15)
[2017-02-07 13:21] LABS: ISTAT CREATININE 0.8 mg/dl (0.6-1.3); ISTAT HEMOGLOBIN 11.6 g/dl (12.0-16.0); ISTAT IONIZED CALCIUM 1.19 mmol/l (1.12-1.32)
[2017-02-07 13:25] LABS: ALKALINE PHOSPHATASE 55 U/L (45-117); ALT/SGPT 27 U/L (12-78); BLOOD UREA NITROGEN 11 mg/dl (7-18); BUN/CREATININE RATIO 12.9 (10-20); CALCIUM 8.9 mg/dl (8.5-10.1); CARBON DIOXIDE 24 mmol/L (21-32); CHLORIDE 106 mmol/L (98-107); CREATININE 0.84 mg/dl (0.60-1.20); GLUCOSE 76 mg/dl (70-99); SODIUM 136 mmol/L (136-145)
--- NOTE | 2017-02-07 13:54 | DIAGNOSTIC IMAGING REPORT ---
ABDOMEN AND PELVIS CT WITH IV CONTRAST CT DOSE: 461.30 mGy.cm HISTORY: Acute right lower quadrant abdominal pain with history of prior bowel obstruction lower r abd TECHNIQUE: Multiaxial CT images of the abdomen and pelvis were performed following the use of 93 mL Optiray 320 intravenous contrast. A dose lowering technique was utilized adhering to the principles of ALARA. COMPARISON STUDY: CT abdomen and pelvis 12/06/2016. FINDINGS: Lung bases are generally clear with only minimal dependent bibasilar atelectasis. No pneumoperitoneum. Imaged inferior cardiac chambers are unremarkable. The liver, gallbladder, spleen, pancreas and adrenal glands are within normal limits. The bilateral kidneys, ureters, urinary bladder, uterus and adnexa are unremarkable. The dominant aorta is normal in both course and caliber. No bulky adenopathy. Portal vein is patent. There is no bowel obstruction or focal bowel wall thickening. The appendix appears normal as seen on image 257 series 3. Small fat filled periumbilical hernia is seen, diastases 1.4 cm. Soft tissues are unremarkable. Mild intervertebral disc space narrowing at L5-S1. Bones appear intact. IMPRESSION: 1. No acute intra-abdominal or intrapelvic abnormality identified. Normal appendix. 2. No bowel obstruction. 3. Small fat filled periumbilical hernia, diastases 1.4 cm. Electronically signed by: Malcolm Bowles M.D. 02/07/2017 1:53 PM Dictated Date/Time: 02/07/2017 1:49 PM
[2017-02-07] MEDS ORDERED: MoRPHine SULFATE 4 MG/ML 1 ML CARP\\VIAL IV STA (13:55)
[2017-02-07 14:31] LABS: POTASSIUM 3.4 mmol/L (3.5-5.1)
[2017-02-07 14:36] LABS: AST/SGOT 14 U/L (15-37)
[2017-02-07] MEDS ORDERED: DiphenhydrAMINE HCL 50 MG/ML VIAL IV STA (15:20)
[2017-02-07 15:55] VITALS: BP 144/98; PULSE 81; O2SAT 98
--- NOTE | 2017-02-07 19:18 | EMERGENCY ROOM VISIT NOTE ---
History Report prepared by Yane: Juana Ocampo Under the Supervision of: Dr. Balwinder Francis D.O. First contact with patient: 12:33 Chief Complaint: PELVIC PAIN Stated Complaint: PELVIC/ABD. PAIN-REFERRED BY DOCTOR'S OFFICE History of Present Illness The patient is a 31 year old female who presents to the Emergency Room with complaints of worsening pelvic pain starting last night. The patient has had this same pelvic and lower abdominal pain for the past 3 months. Pain is sharp stabbing and major. She is scheduled for surgery tomorrow. She was sent to the ED by Dr. Gómez because she is out of Percocet and to possible have another scan per report. She has blood work yesterday which showed a high white count. She denies any rhinorrhea, sore throat, cough, headache, chest pain, SOB, dysuria, or vaginal discharge. She has a history of bowel obstruction 1 year ago. She has not had any previous abdominal surgeries. Source of History: patient Onset: last night Position: other (pelvic) Quality: other (pain) Timing: worsening Associated Symptoms: + abdominal pain, No headache, No sorethroat, No cough , No chest pain, No SOB, No urinary symptoms Review of Systems See HPI for pertinent positives & negatives. A total of 10 systems reviewed and were otherwise negative. Past Medical & Surgical Medical Problems: (1) History of kidney stones (2) History of ovarian cyst (3) Major depressive disorder, recurrent, moderate (4) Nausea & vomiting (5) PID (pelvic inflammatory disease) Surgical Problems: (1) Hx of tonsillectomy (2) SBO (small bowel obstruction) Family History Patient reports no known family medical history. Social History Smoking Status: Never Smoker Drug Use: none Marital Status: single Housing Status: lives alone Occupation Status: [employer] student Current/Historical Medications Scheduled Control Pills ( Control Pills), 1 TAB PO HS Clonidine Hcl (Catapres), 0.2 MG PO HS Duloxetine Hcl (Cymbalta), 60 MG PO HS Lamotrigine (Lamictal), 100 MG PO HS Pramipexole Dihydrochloride (Mirapex), 0.5 MG PO HS Scheduled PRN Acetaminophen Tab (Tylenol), 650 MG PO for Pain or Fever Cetirizine (Zyrtec), 10 MG PO DAILY PRN for Allergy Symptoms Clonazepam (Klonopin), 1 MG PO TID PRN for Ondasetron Odt (Zofran Odt), 4 MG SL Q6H PRN for Nausea or Vomiting Polyethylene Glycol 3350 (Miralax), 17 GM PO DAILY PRN for Constipation Rizatriptan Benzoate (Maxalt), 10 MG PO UD PRN for Migraine Allergies Coded Allergies: Metoclopramide (Verified Adverse Reaction, Intermediate, panic attacks, ) Prochlorperazine (Verified Adverse Reaction, Intermediate, panic attack, 02/07/17) Sulfa Antibiotics (Verified Adverse Reaction, Intermediate, vomiting, 02/07) Ceftriaxone (Verified Adverse Reaction, Mild, CLAIMED FELT SKIN CRAWL; FIRE ANTS, 02/07/17) Physical Exam Vital Signs Date Time Temp Pulse Resp B/P (MAP) Pulse Ox O2 Delivery O2 Flow Rate FiO2 02/07/17 15:55 81 16 144/98 98 02/07/17 14:38 80 20 136/91 99 02/07/17 14:25 70 14 119/89 98 02/07/17 11:54 37.1 96 18 157/99 99 Room Air Physical Exam GENERAL: Sitting up in bed, alert, well appearing, well nourished, no distress, non-toxic, talking in full sentences EYE EXAM: normal conjunctiva. OROPHARYNX: no exudate, no erythema, lips, buccal mucosa, and tongue normal and mucous membranes are moist NECK: supple, no nuchal rigidity, no adenopathy, non-tender LUNGS: Clear to auscultation. Normal chest wall mechanics HEART: no murmurs, S1 normal and S2 normal ABDOMEN: abdomen soft, faint tenderness with distraction in right lower quadrant , normo-active bowel sounds, no masses, no rebound or guarding. BACK: Back is symmetrical on inspection and there is no deformity, no midline tenderness, no CVA tenderness. PELVIS: Normal external genitalia. Normal vaginal mucosa. Tender in right adnexa SKIN: no rashes and no bruising UPPER EXTREMITIES: upper extremities are grossly normal. LOWER EXTREMITIES: No pitting edema. NEURO EXAM: Normal sensorium, cranial nerves II-XII grossly intact, normal speech, no gross weakness of arms, no gross weakness of legs. Medical Decision & Procedures ER Provider Diagnostic Interpretation: Radiology results as stated below per my review and the radiologist's interpretation: ABDOMEN AND PELVIS CT WITH IV CONTRAST CT DOSE: 461.30 mGy.cm HISTORY: Acute right lower quadrant abdominal pain with history of prior bowel obstruction lower r abd TECHNIQUE: Multiaxial CT images of the abdomen and pelvis were performed following the use of 93 mL Optiray 320 intravenous contrast. A dose lowering technique was utilized adhering to the principles of ALARA. COMPARISON STUDY: CT abdomen and pelvis 12/06/2016. FINDINGS: Lung bases are generally clear with only minimal dependent bibasilar atelectasis. No pneumoperitoneum. Imaged inferior cardiac chambers are unremarkable. The liver, gallbladder, spleen, pancreas and adrenal glands are within normal limits. The bilateral kidneys, ureters, urinary bladder, uterus and adnexa are unremarkable. The dominant aorta is normal in both course and caliber. No bulky adenopathy. Portal vein is patent. There is no bowel obstruction or focal bowel wall thickening. The appendix appears normal as seen on image 257 series 3. Small fat filled periumbilical hernia is seen, diastases 1.4 cm. Soft tissues are unremarkable. Mild intervertebral disc space narrowing at L5-S1. Bones appear intact. IMPRESSION: 1. No acute intra-abdominal or intrapelvic abnormality identified. Normal appendix. 2. No bowel obstruction. 3. Small fat filled periumbilical hernia, diastases 1.4 cm. Electronically signed by: Malcolm Bowles M.D. 02/07/2017 1:53 PM Dictated Date/Time: 02/07/2017 1:49 PM Laboratory Results 02/07/17 12:45 Red Blood Count 3.90, Mean Corpuscular Volume 95.1, Mean Corpuscular Hemoglobin 30.0, Mean Corpuscular Hemoglobin Concent 31.5, Mean Platelet Volume 9.6, Neutrophils (%) (Auto) 57.7, Lymphocytes (%) (Auto) 34.7, Monocytes (%) (Auto) 6.8, Eosinophils (%) (Auto) 0.4, Basophils (%) (Auto) 0.2, Neutrophils # (Auto) 6.57, Lymphocytes # (Auto) 3.94, Monocytes # (Auto) 0.77, Eosinophils # (Auto) 0.04, Basophils # (Auto) 0.02 02/07/17 12:45 02/07/17 14:01 Test 02/07/17 12:45 11/1/17 13:09 02/07/17 14:01 White Blood Count 11.36 K/uL (4.8-10.8) Red Blood Count 3.90 M/uL (4.2-5.4) Hemoglobin 11.7 g/dL (12.0-16.0) Hematocrit 37.1 % (37-47) Mean Corpuscular Volume 95.1 fL (80-100) Mean Corpuscular Hemoglobin 30.0 pg (25-34) Mean Corpuscular Hemoglobin Concent 31.5 g/dl (32-36) Platelet Count 445 K/uL (130-400) Mean Platelet Volume 9.6 fL (7.4-10.4) Neutrophils (%) (Auto) 57.7 % Lymphocytes (%) (Auto) 34.7 % Monocytes (%) (Auto) 6.8 % Eosinophils (%) (Auto) 0.4 % Basophils (%) (Auto) 0.2 % Neutrophils # (Auto) 6.57 K/uL (1.4-6.5) Lymphocytes # (Auto) 3.94 K/uL (1.2-3.4) Monocytes # (Auto) 0.77 K/uL (0.11-0.59) Eosinophils # (Auto) 0.04 K/uL (0-0.5) Basophils # (Auto) 0.02 K/uL (0-0.2) RDW Standard Deviation 52.5 fL (36.4-46.3) RDW Coefficient of Variation 15.3 % (11.5-14.5) Immature Granulocyte % (Auto) 0.2 % Immature Granulocyte # (Auto) 0.02 K/uL (0.00-0.02) Urine Color DK YELLOW Urine Appearance CLEAR (CLEAR) Urine pH 6.5 (4.5-7.5) Urine Specific [place] 1.029 (1.000-1.030) Urine Protein NEG (NEG) Urine Glucose (UA) NEG (NEG) Urine Ketones TRACE (NEG) Urine Occult Blood NEG (NEG) Urine Nitrite NEG (NEG) Urine Bilirubin NEG (NEG) Urine Urobilinogen NEG (NEG) Urine Leukocyte Esterase NEG (NEG) Urine WBC (Auto) 1-5 /hpf (0-5) Urine RBC (Auto) 0-4 /hpf (0-4) Urine Hyaline Casts (Auto) 1-5 /lpf (0-5) Urine Epithelial Cells (Auto) 5-10 /lpf (0-5) Urine Bacteria (Auto) NEG (NEG) Urine Test NEG (NEG) Est Creatinine Clear Calc Drug Dose 102.2 ml/min Estimated GFR () 107.3 Estimated GFR (Non- 92.6 BUN/Creatinine Ratio 12.9 (10-20) Calcium Level 8.9 mg/dl (8.5-10.1) Total Bilirubin 0.3 mg/dl (0.2-1) Alanine Aminotransferase (ALT/SGPT) 27 U/L (12-78) Alkaline Phosphatase 55 U/L (45-117) Total Protein 7.9 gm/dl (6.4-8.2) Albumin 3.7 gm/dl (3.4-5.0) Lipase 227 U/L (73-393) Bedside Hemoglobin 11.6 g/dl (12.0-16.0) Bedside Hematocrit 34 % (37-47) Bedside Sodium 139 mEq/L (135-144) Bedside Potassium 3.4 mEq/L (3.3-5.0) Bedside Chloride 105 mEq/L (101-112) Bedside Total CO2 24 mEq/l (24-31) Anion Gap 16.0 mmol/L (16-25) Bedside Blood Urea Nitrogen 11 mg/dl (7-18) Bedside Creatinine 0.8 mg/dl (0.6-1.3) Bedside Glucose (other) 80 mg/dl (70-99) Bedside Ionized Calcium (Yang) 1.19 mmol/l (1.12-1.32) Direct Bilirubin < 0.1 mg/dl (0-0.2) Aspartate Amino Transf (AST/SGOT) 14 U/L (15-37) Laboratory results per my review. Medications Administered Medications (Trade) Dose Ordered Sig/Radha Route Start Time Stop Time Status Last Admin Dose Admin Morphine Sulfate (MoRPHine SULFATE INJ) 4 mg NOW STAT IV 02/07/17 13:55 02/07/17 13:56 DC 02/07/17 14:21 4 MG Diphenhydramine HCl (Benadryl Inj) 12.5 mg NOW STAT IV 02/07/17 15:20 02/07/17 15:21 DC 02/07/17 15:49 12.5 MG ED Course ED COURSE: Vital signs were reviewed and showed hypertension. The patients medical record was reviewed The above diagnostic studies were performed and reviewed. ED treatments and interventions as stated above. 1244: The patient was evaluated in room B10. A complete history and physical examination was performed. 1256: I discussed the patient's case with Narinder Watkins Remote Mortgage Underwriter. He will do a diagnostic lap tomorrow and recommends a complete work up with imaging. If negative, he will take her to the OR tomorrow. 1355: Morphine Sulfate 4 mg IV. 1410: I reevaluated the patient. I updated her on the results. 1517: Upon reevaluation, the patient is resting comfortably. I performed a pelvic exam in the presence of a female nursing filler blender. I discussed my findings with the patient and she understands and agrees with the treatment plan. Based on the patients age, coexisting illnesses, exam and lab findings the decision to treat as an outpatient was made. The patient remained stable while under my care. The patient appeared well at the time of discharge. 1520: Benadryl Inj 12.5 mg IV. Medical Decision Differential diagnoses includes but is not limited to gastritis, peptic ulcer disease, GERD, gallbladder disease, pancreatitis, small bowel obstruction, acute coronary syndrome, pericarditis, ischemic bowel, irritable bowel disease, irritable bowel syndrome, appendicitis, diverticulitis, malignancy, hernia, urinary tract infection, torsion, /ectopic , perforation, trauma, infectious. Patient is a 31-year-old female who presents to ER for right lower quadrant abdominal pain. She notes she is referred in by her SALES AND MARKETING COORDINATOR physician for possible imaging. She's been here 6 times in the past month. I had a prolonged conversation with Dr. [place] from [facility]. He recommends complete workup in the ER and he will perform a laparoscopic surgery tomorrow. If at that time there are no adhesions he will refer her to pain management as there will be nothing additionally to do at this time. IV was established. Blood work was obtained. She had a faint leukocytosis of 11,000. No significant anemia. BMP all LFTs , bilirubin lipase unremarkable. UA was negative. was negative. Pelvic was fairly unremarkable. CT abdomen and pelvis was negative. Patient was given fluids and IV morphine. I gave her narcotics and the benefit of the doubt that there could be an adhesion with the diagnostic lap. I did not give her any narcotics to go home. Discussed with Pt concerning signs and symptoms to watch out for. Pt was instructed to follow up with their PCP and discussed with the patient their option to return to the ED at anytime for persistent or worsening symptoms. The appropriate anticipatory guidance and out-patient management, including indications for return to the emergency department, were explained at length to the patient and understood. Medication Reconcilliation Current Medication List: was personally reviewed by me Blood Pressure Screening Patient's blood pressure: Elevated blood pressure Blood pressure disposition: Elevated BP felt to be situational Consults Time Called: 1248 Consulting Physician: Narinder Watkins Remote Mortgage Underwriter Returned Call: [phone] I discussed the patient's case with him. He will do a diagnostic lap tomorrow and recommends a complete work up with imaging. If negative, he will take her to the OR tomorrow. Impression Primary Impression: Lower abdominal pain Scribe Attestation The scribe's documentation has been prepared under my direction and personally reviewed by me in its entirety. I confirm that the note above accurately reflects all work, treatment, procedures, and medical decision making performed by me. Departure Information Dispostion Home / Self-Care Referrals Noe Willett MD Forms HOME CARE DOCUMENTATION FORM, IMPORTANT VISIT INFORMATION, WORK / SCHOOL INSTRUCTIONS Patient Instructions Abdominal Pain - [facility], [facility] Additional Instructions Please follow up with your primary care doctor or if you are a student, [facility] with in the next 24 hours. Any worsening of your symptoms, please return to the ED immediately. This includes any fevers greater than 100.4, worsening pain, chest pain, shortness breath, persistent nausea, vomiting, unable to eat or drink, or any other concerning signs or symptoms from your standpoint. You were given medications during this visit that will inhibit your ability to drive, operate machinery and work. Please do NOT drive, operate machinery, drink alcohol or work for the next 12hrs.
== END 2017-02-07 15:55 | disposition home or self-care (01) ==
LOC: C.EDB 11:53
DX: R10.30 Lower abdominal pain, unspecified (principal); F32.9 Major depressive disorder, single episode, unspecified; N73.9 Female pelvic inflammatory disease, unspecified

== ENCOUNTER 2017-02-09 12:27 | Inpatient (IN) | payer OTHER ==
[~2017-02-09] VITALS: Ht 162.6 cm; Wt 84.0 kg
[2017-02-09] MEDS ORDERED: KETOROLAC TROMETHAMINE 30 MG/ML VIAL IV PRN (13:15)
[2017-02-09] MEDS ORDERED: SODIUM CHLORIDE 0.9% 1000ML 1,000 ML IV SCH (13:30)
[2017-02-09] MEDS ORDERED: OPTIRAY 320 IV PRN (13:30)
[2017-02-09 13:35] LABS: BASO % 0.2 %; BASO ABS # 0.02 K/uL (0-0.2); COMPLETE YES; EOS % 0.4 %; HEMATOCRIT 35.3 % (37-47); IG% 0.3 %; LYMPH % 33.9 %; MEAN CELL VOLUME 95.7 fL (80-100); MEAN CORPUSCULAR HGB CONC 30.3 g/dl (32-36); MEAN PLATELET VOLUME 9.5 fL (7.4-10.4); MONO % 7.2 %; PLATELET COUNT 416 K/uL (130-400); RED BLOOD COUNT 3.69 M/uL (4.2-5.4); WHITE BLOOD COUNT 11.51 K/uL (4.8-10.8)
[2017-02-09 13:58] LABS: BLOOD UREA NITROGEN 6 mg/dl (7-18); BUN/CREATININE RATIO 8.7 (10-20); CALCIUM 8.5 mg/dl (8.5-10.1); CARBON DIOXIDE 28 mmol/L (21-32); CHLORIDE 106 mmol/L (98-107); CREATININE 0.71 mg/dl (0.60-1.20); GLUCOSE 90 mg/dl (70-99); POTASSIUM 3.7 mmol/L (3.5-5.1); SODIUM 139 mmol/L (136-145)
[2017-02-09 14:40] VITALS: BP_SYST 135; BP_SYST 139; BP_SYST 141; BP_DIAS 100; BP_DIAS 96; PULSE 74; TEMP 36.8; O2SAT 100; Ht 162.6 cm; Wt 84.0 kg
[2017-02-09 15:40] VITALS: BP 137/97; PULSE 77; TEMP 36.6; O2SAT 100
--- NOTE | 2017-02-09 16:08 | DIAGNOSTIC IMAGING REPORT ---
CT ABD/PELVIS IV CONTRAST ONLY CLINICAL HISTORY: Generalized abdominal pain. Patient status post laparoscopy yesterday. COMPARISON STUDY: 02/07/2017 TECHNIQUE: Following the IV administration of 115 mL of Optiray-320, CT scan of the abdomen and pelvis was performed from the lung bases to the proximal femurs. Images are reviewed in the axial, sagittal, and coronal planes. IV contrast was administered without complication. A dose lowering technique was utilized adhering to the principles of ALARA. CT DOSE: 433.08 mGy.cm FINDINGS: Lower chest: The heart is normal in size and configuration, without pericardial effusion. The lung bases and pleural spaces are clear. Liver: The contrast-enhanced liver is normal in size, contour, and attenuation. There is no intrahepatic biliary ductal dilatation. The hepatic veins and portal veins are patent. Gallbladder: Unremarkable. Spleen: Normal in size and attenuation. Pancreas: Unremarkable. Adrenal glands: Unremarkable. Kidneys: There is symmetric renal cortical enhancement. The kidneys are normal in size without hydronephrosis. Bowel: There are no transition zones indicate bowel obstruction. There is no evidence of acute diverticulitis. The appendix is felt to be normal. Peritoneum: There is no ascites. There is free intraperitoneal air, likely secondary to recent laparoscopic surgery. Vasculature: The abdominal aorta is normal in course and caliber. Adenopathy: None. Pelvic viscera: The bladder, and pelvic viscera are unremarkable. Skeletal structures: There is soft tissue thickening in the region the umbilicus. There is air within the periumbilical soft tissues. The findings are likely secondary to a laparoscopic entry site. IMPRESSION: 1. Postsurgical changes at the level of the umbilicus 2. Small amount of free intraperitoneal air, likely secondary to recent laparoscopic surgery 3. No evidence of bowel obstruction. No evidence of free air. 4. Normal appendix. No evidence of acute diverticulitis. Electronically signed by: Guy Bañuelos M.D. 02/09/2017 4:06 PM Dictated Date/Time: 02/09/2017 4:02 PM
[2017-02-09] MEDS ORDERED: OXYCODONE/ACETAMINOPHEN 5-325 TAB PO PRN ×2 (17:00)
--- NOTE | 2017-02-09 18:20 | Discharge Instructions ---
Discharge Instructions Date of Service Feb 09, 2017. Admission Reason for Admission: Pain Control, Post Op Discharge Discharge Diagnosis / Problem: s/p laparoscopy Discharge Goals Goal(s): Routine recovery after surgery Activity Recommendations Activity Limitations: per Instructions/Follow-up section . Instructions / Follow-Up Instructions / Follow-Up SPECIAL CARE INSTRUCTIONS: * Check temperature twice daily for one week. Report any elevation over 100.4 degrees Fahrenheit (38.0 degrees Celsius). * Call office in the next few days for return appointment. * You may experience some vaginal spotting and/or bleeding, this is normal for one or two weeks and should not alarm you. * Post-operative discomfort may consist of a sore throat, a "bloated" feeling and pain in the shoulders. These are normal symptoms which usually only last for two or three days. FOLLOW UP VISIT: Keep any scheduled doctor appointments. Current Hospital Diet Patient's current hospital diet: Regular Diet Discharge Diet Recommended Diet: Regular Diet Pending Studies Studies pending at discharge: no Medical Emergencies . Who to Call and When: Medical Emergencies: If at any time you feel your situation is an emergency, please call 911 immediately. . Non-Emergent Contact Non-Emergency issues call your: Primary Care Provider, [facility] . . "Provider Documentation" section prepared by Larry Arellano. . VTE Core Measure Inpt VTE Proph given/why not?: Treatment not indicated
[2017-02-09 18:55] VITALS: BP 137/97; PULSE 77; TEMP 36.6; O2SAT 100
--- NOTE | 2017-02-09 19:01 | History and Physical ---
History & Physical Date & Time of Service: Feb 09, 2017 at 18:53 Chief Complaint: Pain Control, Post Op Primary Care Physician: Noe Willett MD History of Present Illness Source: patient Patient is s/p diagnostic laparoscopy on 02/08/17 comes in today for excessive pain since her surgery. She was seen in the office this afternoon and was sent over further evaluation and pain management. She has a history of chronic abdominal pain and underwent a laparoscopy 1 year ago in [place] for a suspected bowel obstruction but bowel was normal. She continued to have issues with pain throughout the year and has been seen in the ER on multiple occasions since she moved to the area in November. Due to the amount of pain she has been having a diagnostic laparoscopy was completed on 02/08. Her laparoscopy was essentially benign with no obvious cause for her pain. No adhesive or inflammatory disease grossly seen. Once she was sent home yesterday her pain was out of proportion for the procedure and therefore comes in today. Discussed pain management with Toradol and IV fluids. Will obtain a CT scan of abdomen to rule out any acute process s/p laparoscopy. Past Medical/Surgical History Medical Problems: (1) History of kidney stones Status: Chronic (2) History of ovarian cyst Status: Chronic Surgical Problems: (1) Hx of tonsillectomy Status: Resolved (2) SBO (small bowel obstruction) Status: Resolved Family History Patient reports no known family medical history. 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 Immunizations History of Influenza Vaccine: Unknown History of Tetanus Vaccine?: Unknown History of Pneumococcal: Unknown History of Hepatitis B Vaccine: Unknown Multi-Drug Resistant Organisms History of MDRO: No Allergies Coded Allergies: Metoclopramide (Verified Adverse Reaction, Intermediate, panic attacks, ) Prochlorperazine (Verified Adverse Reaction, Intermediate, panic attack, 02/07/17) Sulfa Antibiotics (Verified Adverse Reaction, Intermediate, vomiting, 02/07) Ceftriaxone (Verified Adverse Reaction, Mild, CLAIMED FELT SKIN CRAWL; FIRE ANTS, 02/07/17) Home Medications Scheduled Control Pills ( Control Pills), 1 TAB PO HS Clonidine Hcl (Catapres), 0.2 MG PO HS Duloxetine Hcl (Cymbalta), 60 MG PO HS Lamotrigine (Lamictal), 100 MG PO HS Pramipexole Dihydrochloride (Mirapex), 0.5 MG PO HS Scheduled PRN Acetaminophen Tab (Tylenol), 650 MG PO for Pain or Fever Cetirizine (Zyrtec), 10 MG PO DAILY PRN for Allergy Symptoms Clonazepam (Klonopin), 1 MG PO TID PRN for Ondasetron Odt (Zofran Odt), 4 MG SL Q6H PRN for Nausea or Vomiting Polyethylene Glycol 3350 (Miralax), 17 GM PO DAILY PRN for Constipation Rizatriptan Benzoate (Maxalt), 10 MG PO UD PRN for Migraine Review of Systems Constitutional: No fever, No chills, No sweats, No weight loss, No weakness, No fatigue, No problem reported Respiratory: No cough, No sputum, No wheezing, No shortness of breath, No dyspnea on exertion, No dyspnea at rest, No hemoptysis, No problem reported Cardiovascular: No chest pain, No orthopnea, No PND, No edema, No claudication , No palpitations, No problem reported Abdomen: + pain, + nausea Musculoskeletal: No joint pain, No muscle pain, No swelling, No calf pain, No problem reported Genitourinary - Female: No dysuria, No urinary frequency, No urinary urgency, No urinary incontinence, No urinary retention, No hematuria, No dysmenorrhea, No menorrhagia, No metrorrhagia, No rash, No vaginal bleeding, No vaginal discharge, No vaginal itching, No vulvodynia, No , No problem reported Neurologic: No memory loss, No paralysis, No weakness, No numbness/tingling, No vertigo, No balance problems, No problem reported Psychiatric: + depression symptoms, + anxiety, + substance abuse Hematologic / Lymphatic: No abnormal bleeding/bruising, No clotting problems, No swollen lymph nodes, No night sweats, No problem reported Physical Exam Vital Signs Date Time Temp Pulse Resp B/P (MAP) Pulse Ox O2 Delivery O2 Flow Rate FiO2 02/09/17 15:40 36.6 77 18 137/97 (110) 100 Room Air 02/09/17 15:40 100 Room Air 02/09/17 14:40 36.8 74 16 139/100 100 Room Air 141/96 135/96 General Appearance: WD/WN, no apparent distress Respiratory/Chest: chest non-tender, lungs clear, normal breath sounds Cardiovascular: regular rate, rhythm Abdomen/GI: normal bowel sounds, soft, + tenderness (right lower abdomen and below umbilicus) Neurologic/Psych: alert, oriented x 3 Skin: normal color, warm/dry, no rash Diagnostics Laboratory Results Results Past 24 Hours Test 02/09/17 13:21 Range/Units White Blood Count 11.51 4.8-10.8 K/uL Red Blood Count 3.69 4.2-5.4 M/uL Hemoglobin 10.7 12.0-16.0 g/dL Hematocrit 35.3 37-47 % Mean Corpuscular Volume 95.7 80-100 fL Mean Corpuscular Hemoglobin 29.0 25-34 pg Mean Corpuscular Hemoglobin Concent 30.3 32-36 g/dl Platelet Count 416 130-400 K/uL Mean Platelet Volume 9.5 7.4-10.4 fL Neutrophils (%) (Auto) 58.0 % Lymphocytes (%) (Auto) 33.9 % Monocytes (%) (Auto) 7.2 % Eosinophils (%) (Auto) 0.4 % Basophils (%) (Auto) 0.2 % Neutrophils # (Auto) 6.68 1.4-6.5 K/uL Lymphocytes # (Auto) 3.90 1.2-3.4 K/uL Monocytes # (Auto) 0.83 0.11-0.59 K/uL Eosinophils # (Auto) 0.05 0-0.5 K/uL Basophils # (Auto) 0.02 0-0.2 K/uL RDW Standard Deviation 52.2 36.4-46.3 fL RDW Coefficient of Variation 14.7 11.5-14.5 % Immature Granulocyte % (Auto) 0.3 % Immature Granulocyte # (Auto) 0.03 0.00-0.02 K/uL Sodium Level 139 136-145 mmol/L Potassium Level 3.7 3.5-5.1 mmol/L Chloride Level 106 98-107 mmol/L Carbon Dioxide Level 28 21-32 mmol/L Anion Gap 5.0 3-11 mmol/L Blood Urea Nitrogen 6 7-18 mg/dl Creatinine 0.71 0.60-1.20 mg/dl Estimated GFR () 131.5 Estimated GFR (Non- 113.5 BUN/Creatinine Ratio 8.7 10-20 Random Glucose 90 70-99 mg/dl Calcium Level 8.5 8.5-10.1 mg/dl Diagnostic Radiology CT ABD/PELVIS IV CONTRAST ONLY CLINICAL HISTORY: Generalized abdominal pain. Patient status post laparoscopy yesterday. COMPARISON STUDY: 02/07/2017 TECHNIQUE: Following the IV administration of 115 mL of Optiray-320, CT scan of the abdomen and pelvis was performed from the lung bases to the proximal femurs. Images are reviewed in the axial, sagittal, and coronal planes. IV contrast was administered without complication. A dose lowering technique was utilized adhering to the principles of ALARA. CT DOSE: 433.08 mGy.cm FINDINGS: Lower chest: The heart is normal in size and configuration, without pericardial effusion. The lung bases and pleural spaces are clear. Liver: The contrast-enhanced liver is normal in size, contour, and attenuation. There is no intrahepatic biliary ductal dilatation. The hepatic veins and portal veins are patent. Gallbladder: Unremarkable. Spleen: Normal in size and attenuation. Pancreas: Unremarkable. Adrenal glands: Unremarkable. Kidneys: There is symmetric renal cortical enhancement. The kidneys are normal in size without hydronephrosis. Bowel: There are no transition zones indicate bowel obstruction. There is no evidence of acute diverticulitis. The appendix is felt to be normal. Peritoneum: There is no ascites. There is free intraperitoneal air, likely secondary to recent laparoscopic surgery. Vasculature: The abdominal aorta is normal in course and caliber. Adenopathy: None. Pelvic viscera: The bladder, and pelvic viscera are unremarkable. Skeletal structures: There is soft tissue thickening in the region the umbilicus. There is air within the periumbilical soft tissues. The findings are likely secondary to a laparoscopic entry site. IMPRESSION: 1. Postsurgical changes at the level of the umbilicus 2. Small amount of free intraperitoneal air, likely secondary to recent laparoscopic surgery 3. No evidence of bowel obstruction. No evidence of free air. 4. Normal appendix. No evidence of acute diverticulitis. Impression Assessment and Plan (1) S/P laparoscopy (2) Postoperative lower abdominal pain Patient was reassured that her CT scan showed no acute process in her abdomen and pelvis that would explain her pain. We discussed the possibility of opioid dependence where she seemed receptive too and admits she has been using narcotics quiet frequently over the past 2 years. I let her eat a regular diet which she finished and tolerated well. Denies any nausea at this time. Recommended she stay for continued observation overnight and can be discharged tomorrow. She states she would rather go home and recover there. She is to follow up with Dr. Gómez in the office for her postop appointment. Call with any concerns. Advanced Directives Existing Living Will: No Existing Power of Tyre Builder: No VTE Prophylaxis VTE Risk Assessment Done? Y/N: Yes Risk Level: Low Given or contraindicated: Treatment not indicated Note Total Time: Critical Care 30 - 74 minutes
--- NOTE | 2017-02-23 07:05 | Discharge Summary ---
Discharge Summary Date of Service Feb 23, 2017. Discharge Summary Admission Date: Feb 09, 2017 at 13:17 Discharge Date: Feb 09, 2017 Discharge Disposition: Home Principal Diagnosis: S/P diagnostic laparoscopy, Pelvic pain Medication Reconciliation Continued Medications: Acetaminophen Tab (Tylenol) 325 Mg Tab 650 MG PO PRN for Pain or Fever, TAB Control Pills ( Control Pills) Tab 1 TAB PO HS, TAB Cetirizine (Zyrtec) 10 Mg Tab 10 MG PO DAILY PRN for Allergy Symptoms, TAB Clonazepam (Klonopin) 1 Mg Tab 1 MG PO TID PRN for , TAB Clonidine Hcl (Catapres) 0.2 Mg Tab 0.2 MG PO HS, TAB Duloxetine Hcl (Cymbalta) 60 Mg Cap 60 MG PO HS, CAP Lamotrigine (Lamictal) 100 Mg Tab 100 MG PO HS, TAB Ondasetron Odt (Zofran Odt) 4 Mg Tab 4 MG SL Q6H PRN for Nausea or Vomiting, #6 TAB Polyethylene Glycol 3350 (Miralax) 1 Pow Pow 17 GM PO DAILY PRN for Constipation, GM Pramipexole Dihydrochloride (Mirapex) 0.5 Mg Tab 0.5 MG PO HS Rizatriptan Benzoate (Maxalt) 10 Mg Tab 10 MG PO UD PRN for Migraine, TAB TAKE ONE TABLET AT ONSET OF MIGRAINE HEADACHE, MAY REPEAT AFTER 2 HOURS IF NEEDED. TAKE NO MORE THAN 2 TABLETS/24 HOURS Admission Information HPI (per Admitting provider): Patient is s/p diagnostic laparoscopy on 02/08/17 comes in today for excessive pain since her surgery. She was seen in the office this afternoon and was sent over further evaluation and pain management. She has a history of chronic abdominal pain and underwent a laparoscopy 1 year ago in [place] for a suspected bowel obstruction but bowel was normal. She continued to have issues with pain throughout the year and has been seen in the ER on multiple occasions since she moved to the area in November. Due to the amount of pain she has been having a diagnostic laparoscopy was completed on 02/08. Her laparoscopy was essentially benign with no obvious cause for her pain. No adhesive or inflammatory disease grossly seen. Once she was sent home yesterday her pain was out of proportion for the procedure and therefore comes in today. Discussed pain management with Toradol and IV fluids. Will obtain a CT scan of abdomen to rule out any acute process s/p laparoscopy. Physical Exam (per Admitting): General Appearance: WD/WN, no apparent distress Respiratory/Chest: chest non-tender, lungs clear, normal breath sounds Cardiovascular: regular rate, rhythm Abdomen/GI: normal bowel sounds, soft, + tenderness (right lower abdomen and below umbilicus) Neurologic/Psych: alert, oriented x 3 Skin: normal color, warm/dry, no rash Hospital Course (1) S/P laparoscopy (2) Postoperative lower abdominal pain Patient was given IV toradol for pain. An abdominal/pelvic CT was obtained and showed postoperative changes but no acute process to explain her pain. She was allowed to eat a normal diet without N/V. She was offered continued observation over night but patient refused and was discharged the same evening with discharge instructions. Total time spent on discharge = 20 mins This includes examination of the patient, discharge planning, medication reconciliation, and communication with other providers. Discharge Instructions Discharge Instructions Date of Service Feb 09, 2017. Admission Reason for Admission: Pain Control, Post Op Discharge Discharge Diagnosis / Problem: s/p laparoscopy Discharge Goals Goal(s): Routine recovery after surgery Activity Recommendations Activity Limitations: per Instructions/Follow-up section . Instructions / Follow-Up Instructions / Follow-Up SPECIAL CARE INSTRUCTIONS: * Check temperature twice daily for one week. Report any elevation over 100.4 degrees Fahrenheit (38.0 degrees Celsius). * Call office in the next few days for return appointment. * You may experience some vaginal spotting and/or bleeding, this is normal for one or two weeks and should not alarm you. * Post-operative discomfort may consist of a sore throat, a "bloated" feeling and pain in the shoulders. These are normal symptoms which usually only last for two or three days. FOLLOW UP VISIT: Keep any scheduled doctor appointments. Current Hospital Diet Patient's current hospital diet: Regular Diet Discharge Diet Recommended Diet: Regular Diet Pending Studies Studies pending at discharge: no Medical Emergencies . Who to Call and When: Medical Emergencies: If at any time you feel your situation is an emergency, please call 911 immediately. . Non-Emergent Contact Non-Emergency issues call your: Primary Care Provider, Kier Drier
[2017-03-08] MEDS ORDERED: AMOX500T PO (17:22)
[2017-03-14] MEDS ORDERED: ONDA4TAB10 SL ×2 (10:26)
[2017-03-14] MEDS ORDERED: ACET325T96 PO ×2 (12:22)
[2017-03-14] MEDS ORDERED: RIZA10TA18 PO ×2 (20:05)
[2017-03-14] MEDS ORDERED: BCPILLS PO ×2 (22:02)
[2017-03-14] MEDS ORDERED: CETI10TA84 PO ×2 (22:02)
[2017-03-14] MEDS ORDERED: POLY335019 PO ×2 (22:07)
[2017-03-14] MEDS ORDERED: DULO60CA44 PO ×2 (22:07)
[2017-03-14] MEDS ORDERED: CLON1TAB3 PO ×2 (22:56)
[2017-03-14] MEDS ORDERED: PRAM1TAB47 PO ×2 (22:56)
[2017-03-14] MEDS ORDERED: LAMO100T16 PO ×2 (22:56)
[2017-03-14] MEDS ORDERED: CLON0.2T PO ×2 (22:56)
== END 2017-02-09 18:55 | disposition home or self-care (01) | DRG 948 ==
LOC: C.OBG 12:41 → OBSVTOIN 13:17
PROVIDERS: ADMIT Obstetrics & Gynecology; ATTEND Obstetrics & Gynecology
DX: G89.18 Other acute postprocedural pain (principal); G89.29 Other chronic pain; R10.30 Lower abdominal pain, unspecified; Z87.891 Personal history of nicotine dependence

== ENCOUNTER 2017-03-11 20:41 | Emergency (ER) | payer OTHER ==
[~2017-03-11] VITALS: Ht 162.6 cm; Wt 83.6 kg
[~2017-03-11 20:41] MED LIST changes: +AMOX500T PO; -BCPILLS PO; -CETI10TA84 PO; -CLON0.2T PO; -CLON1TAB3 PO; -DULO60CA44 PO; -LAMO100T16 PO; -ONDA4TAB10 SL; -POLY335019 PO; -PRAM1TAB47 PO; -RIZA10TA18 PO
[2017-03-11 20:45] VITALS: TEMP 36.9; Ht 162.6 cm; Wt 83.6 kg
[2017-03-11] MEDS ORDERED: DEXAMETHASONE SOD INJ 4 MG/ML VIAL IV STA (20:59)
[2017-03-11] MEDS ORDERED: MAGNESIUM SULFATE 1GM / D5W 1 GM BAG IV STA (20:59)
[2017-03-11] MEDS ORDERED: KETOROLAC TROMETHAMINE 30 MG/ML VIAL IV STA (20:59)
[2017-03-11] MEDS ORDERED: PROMETHAZINE HCL INJ 25 MG/ML 1 ML VIAL IM STA (20:59)
[2017-03-11] MEDS ORDERED: DiphenhydrAMINE HCL 50 MG/ML VIAL IV STA (20:59)
--- NOTE | 2017-03-11 21:02 | EMERGENCY ROOM VISIT NOTE ---
History Report prepared by Yane: Dayton Schmitt Under the Supervision of: Dr. Stevo Bustillo M.D. First contact with patient: 20:48 Chief Complaint: HEADACHE Stated Complaint: PERSISTENT MIGRAINE W/4 DAYS DIARRHEA&VOMITING History of Present Illness The patient is a 31 year old white female with a past medical history of fibromyalgia, ovarian cysts, anxiety, depression who presents to the ED with a cc of a constant migraine beginning three days ago. She rates her pain as a 7/ 10 in severity and reports her pain is worsened with light. Positive fatigue, dizzy, vomiting, diarrhea. The patient reports that she has had two migraines this week and this one is worse. The patient states that she has been experiencing diarrhea due to her recent use of Augmentin for a sinus infection. She reports that she took Ibuprofen and Excedrin for her symptoms without any relief. The patient states that she usually takes Rizatriptan for her symptoms, but reports she is out and has a prescription refill for tomorrow. She reports that her last normal menstrual period was in December and reports that her normal periods are three months apart. 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 Source of History: patient Onset: three days ago Position: head Symptom Intensity: 7/10 Timing: constant Modifying Factors (Worsening): other (light) Associated Symptoms: + nausea, + vomiting, + diarrhea, + fatigue Review of Systems See HPI for pertinent positives and negatives. A total of ten systems were reviewed and were otherwise negative. Past Medical & Surgical Medical Problems: (1) History of kidney stones (2) History of ovarian cyst (3) Major depressive disorder, recurrent, moderate (4) Nausea & vomiting (5) PID (pelvic inflammatory disease) Surgical Problems: (1) Hx of tonsillectomy (2) SBO (small bowel obstruction) Family History Patient reports no known family medical history. Social History Smoking Status: Never Smoker Drug Use: none Marital Status: single Housing Status: lives alone Occupation Status: [employer] student Current/Historical Medications Scheduled Control Pills ( Control Pills), 1 TAB PO HS Clonidine Hcl (Catapres), 0.2 MG PO HS Duloxetine Hcl (Cymbalta), 60 MG PO HS Lamotrigine (Lamictal), 100 MG PO HS Pramipexole Dihydrochloride (Mirapex), 0.5 MG PO HS Scheduled PRN Acetamin/Butalbital/Caffeine (Fioricet), 1 TAB PO Q6H PRN for Pain Acetaminophen Tab (Tylenol), 650 MG PO Q4H PRN for Pain or Fever Cetirizine (Zyrtec), 10 MG PO DAILY PRN for Allergy Symptoms Clonazepam (Klonopin), 1 MG PO TID PRN for Anxiety Ondasetron Odt (Zofran Odt), 4 MG SL Q6H PRN for Nausea or Vomiting Polyethylene Glycol 3350 (Miralax), 17 GM PO DAILY PRN for Constipation Rizatriptan Benzoate (Maxalt), 10 MG PO UD PRN for Migraine Allergies Coded Allergies: Metoclopramide (Verified Adverse Reaction, Intermediate, panic attacks, ) Prochlorperazine (Verified Adverse Reaction, Intermediate, panic attack, 03/08/17) Sulfa Antibiotics (Verified Adverse Reaction, Intermediate, vomiting, ) Ceftriaxone (Verified Adverse Reaction, Mild, CLAIMED FELT SKIN CRAWL; FIRE ANTS, 03/08/17) Physical Exam Vital Signs Date Time Temp Pulse Resp B/P (MAP) Pulse Ox O2 Delivery O2 Flow Rate FiO2 03/11/17 22:13 64 18 148/107 98 Room Air 03/11/17 20:45 36.9 108 20 161/108 97 Room Air Physical Exam GENERAL: Awake, alert, well-appearing, NAD HENT: Normocephalic, atraumatic. EYES: Normal conjunctiva. Sclera non-icteric. NECK: Supple. No nuchal rigidity. FROM. No meningismus. RESPIRATORY: CTAB, no rhonchi, wheezing, crackles CARDIAC: RRR, no MRG ABDOMEN: Soft, NTND, BS+ MSK: No chest wall TTP, no LE edema NEURO: CN 2-12 intact, 5/5 upper and lower extremity strength, no dysmetria, no drift, good finger to nose, no sensory deficits. Photophobia. SKIN: No rash or jaundice noted. Medical Decision & Procedures Laboratory Results Test 03/11/17 21:38 Urine Color YELLOW Urine Appearance CLEAR (CLEAR) Urine pH 7.0 (4.5-7.5) Urine Specific Pray 1.029 (1.000-1.030) Urine Protein NEG (NEG) Urine Glucose (UA) NEG (NEG) Urine Ketones NEG (NEG) Urine Occult Blood NEG (NEG) Urine Nitrite NEG (NEG) Urine Bilirubin NEG (NEG) Urine Urobilinogen NEG (NEG) Urine Leukocyte Esterase NEG (NEG) Urine WBC (Auto) 1-5 /hpf (0-5) Urine RBC (Auto) 0-4 /hpf (0-4) Urine Hyaline Casts (Auto) 1-5 /lpf (0-5) Urine Epithelial Cells (Auto) >30 /lpf (0-5) Urine Bacteria (Auto) NEG (NEG) Laboratory results reviewed by me Medications Administered Medications (Trade) Dose Ordered Sig/Radha Route Start Time Stop Time Status Last Admin Dose Admin Ketorolac Tromethamine (Toradol Inj) 30 mg NOW STAT IV 03/11/17 20:59 03/11/17 21:03 DC 03/11/17 22:10 30 MG Diphenhydramine HCl (Benadryl Inj) 25 mg NOW STAT IV 03/11/17 20:59 03/11/17 21:03 DC 03/11/17 22:10 25 MG Dexamethasone Sodium Phosphate (Decadron Inj) 10 mg NOW STAT IV 03/11/17 20:59 03/11/17 21:03 DC 03/11/17 22:10 10 MG Magnesium Sulfate (Magnesium Sulfate) 1 gm NOW STAT IV 03/11/17 20:59 03/11/17 21:03 DC 03/11/17 22:11 1 GM Promethazine HCl 25 mg/Sodium Chloride 51 ml @ 204 mls/hr NOW ONCE IV 03/11/17 22:00 03/11/17 22:14 DC 03/11/17 22:11 204 MLS/HR Diphenhydramine HCl (Benadryl Cap) 25 mg NOW ONCE PO 03/11/17 22:30 03/11/17 22:31 DC 03/11/17 22:29 25 MG Acetaminophen/ Butalbital/ Caffeine (Fioricet Tab) 1 tab NOW STAT PO 03/11/17 22:41 03/11/17 22:42 DC 03/11/17 22:41 1 TAB ED Course 2050: The patient was evaluated in room B04B. A complete history and physical exam was performed. Medical Decision Triage Nursing notes reviewed. The patient's presentation and history were concerning for etiologies such as migraine headache, meningitis, sinusitis, CO exposure, ICH, SAH, infection, tumor, headache, sinus thrombosis, arterial dissection, as well as others were entertained. Patient was seen and evaluated the bedside. Patient does have an issue with chronic pain is a patient states she has a diagnosis of fibromyalgia and she's been seen multiple times for migraines. Patient states she's had some nausea with vomiting. This is been ongoing with some associated headache. Patient did have some diarrhea however recently completed a course of Augmentin for a sinus infection. 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 Patient did have a urinalysis that was sent off. Patient not show any signs of infection or blood. Patient was given a headache cocktail. Patient was able tolerate by mouth. Patient's headache mildly improved. Patient was told she is follow-up with her PCP in [facility] for further evaluation and treatment as this has become a very chronic issue. Patient no focal neurologic deficits and no signs of meningismus. This is typical for her migraines. Patient also denies any trauma does not take any blood thinning medications. For all these reasons no further advanced imaging was obtained at this time. Patient was given strict follow-up, discharge, and return precautions. All questions were answered. Patient was deemed suitable for outpatient follow-up at this time. Patient agreed with the plan of care and was safely discharged home. Medication Reconcilliation Current Medication List: was personally reviewed by me Blood Pressure Screening Patient's blood pressure: Elevated blood pressure Blood pressure disposition: Referred to PCP Impression Primary Impression: Headache Additional Impression: Migraine Scribe Attestation The scribe's documentation has been prepared under my direction and personally reviewed by me in its entirety. I confirm that the note above accurately reflects all work, treatment, procedures, and medical decision making performed by me. Departure Information Dispostion Home / Self-Care Prescriptions Acetamin/Butalbital/Caffeine (FIORICET) 1 Ea Tab 1 TAB PO Q6H Y for Pain, #12 TAB Prov: Stevo Bustillo M.D. 03/11/17 Referrals Noe Willett MD (PCP) Patient Instructions ED Headache Migraine, [facility] Additional Instructions Please return to the emergency department if you have worsening or recurrent symptoms not amenable to at-home treatment. Please call for a follow-up appointment with her primary care physician. Please take your medications as prescribed. If you have other concerns and/or complaints please feel free to also call your primary care physician's office or return the ED for further evaluation, management, and treatment. You may take 600 mg Ibuprofen every 6 hours as needed for pain with food for no more than 2 consecutive days. You may take tylenol 1000 mg every 6 hours as needed for pain. You may take motrin and tylenol separately or at the same time. Take your medications as prescribed. You have been examined and treated today on an emergency basis only. This is not a substitute for, or an effort to provide, complete comprehensive medical care. It is impossible to recognize and treat all injuries or illnesses in a single emergency department visit. It is therefore important that you follow up closely with [facility], your PCP, and/or your specialist(s). Call as soon as possible for an appointment. Thank you for your time and consideration. I look forward to speaking with you again soon. Please don't hesitate to call us if you have any questions. Problem Qualifiers Primary Impression: Headache Headache type: unspecified Headache chronicity pattern: acute headache Intractability: not intractable Qualified Codes: R51 - Headache Additional Impression: Migraine Migraine type: unspecified Status migrainosus presence: without status migrainosus Intractability: not intractable Qualified Codes: G43.909 - Migraine, unspecified, not intractable, without status migrainosus
[2017-03-11] MEDS ORDERED: PROMETHAZINE HCL INJ 25 MG in SODIUM CHLORIDE 0.9% 50ML 50 ML IV ONE (22:00)
[2017-03-11 22:11] LABS: URINE APPEARANCE CLEAR (CLEAR); URINE BILIRUBIN NEG (NEG); URINE COLOR YELLOW; URINE EPITHELIAL CELL AUTO >30 /lpf (0-5); URINE NITRITE NEG (NEG); URINE SPECIFIC GRAVITY 1.029 (1.000-1.030); UROBILINOGEN NEG (NEG); ZZUR CULT IF INDIC CLEAN CATCH NO
[2017-03-11 22:13] VITALS: BP 148/107; PULSE 64; O2SAT 98
[2017-03-11] MEDS ORDERED: BUTALBITAL/ACETAMIN/CAFFEINE TAB PO STA (22:41)
[2017-03-11] MEDS ORDERED: FRCT/ PO (22:42)
[2017-03-11 23:00] LABS: MANUAL MICROSCOPIC REQUIRED? NO; REVIEW REQ? NO
[2017-03-14] MEDS ORDERED: ONDA4TAB10 SL ×2 (10:26)
[2017-03-14] MEDS ORDERED: ACET325T96 PO ×2 (12:22)
[2017-03-14] MEDS ORDERED: RIZA10TA18 PO ×2 (20:05)
[2017-03-14] MEDS ORDERED: CETI10TA84 PO ×2 (22:02)
[2017-03-14] MEDS ORDERED: BCPILLS PO ×2 (22:02)
[2017-03-14] MEDS ORDERED: DULO60CA44 PO ×2 (22:07)
[2017-03-14] MEDS ORDERED: POLY335019 PO ×2 (22:07)
[2017-03-14] MEDS ORDERED: LAMO100T16 PO ×2 (22:56)
[2017-03-14] MEDS ORDERED: PRAM1TAB47 PO ×2 (22:56)
[2017-03-14] MEDS ORDERED: CLON1TAB3 PO ×2 (22:56)
[2017-03-14] MEDS ORDERED: CLON0.2T PO ×2 (22:56)
== END 2017-03-11 23:20 | disposition home or self-care (01) ==
LOC: C.EDB 20:42
DX: G43.909 Migraine, unspecified, not intractable, without status migrainosus (principal); M79.7 Fibromyalgia; F41.9 Anxiety disorder, unspecified; F32.9 Major depressive disorder, single episode, unspecified; Z87.442 Personal history of urinary calculi; Z79.3 Long term (current) use of hormonal contraceptives; Z79.899 Other long term (current) drug therapy; G89.29 Other chronic pain

== ENCOUNTER 2017-03-14 15:40 | Emergency (ER) | payer OTHER ==
[~2017-03-14] VITALS: Ht 162.6 cm; Wt 85.1 kg
[~2017-03-14 15:40] MED LIST changes: +ACET325T96 PO; -AMOX500T PO; +FRCT/ PO; +ONDA4TAB10 SL
[2017-03-14 15:49] VITALS: TEMP 36.9; Ht 162.6 cm; Wt 85.1 kg
[2017-03-14] MEDS ORDERED: KETOROLAC TROMETHAMINE 60 MG/2 ML VIAL IM STA (16:13)
[2017-03-14] MEDS ORDERED: DiphenhydrAMINE HCL 50 MG/ML VIAL IM STA (16:13)
[2017-03-14] MEDS ORDERED: PROMETHAZINE HCL INJ 25 MG/ML 1 ML VIAL IM STA (16:13)
[2017-03-14] MEDS ORDERED: IBUP-1050 PO (16:33)
[2017-03-14] MEDS ORDERED: ASPI-390 PO (16:33)
[2017-03-14] MEDS ORDERED: DIPH25CA5 PO (16:33)
--- NOTE | 2017-03-14 17:41 | EMERGENCY ROOM VISIT NOTE ---
History First contact with patient: 15:57 Chief Complaint: HEADACHE Stated Complaint: MIGRAINE CYCLE, DAY 4 History of Present Illness The patient is a 31 year old female who presents to the Emergency Room with complaints of a severe migraine headache for the last several days. The patient has a history of migraines. She says this is her typical headache. It is associated with photophobia, phonophobia, nausea and vomiting. She has tried her prescription medications and Tylenol/ibuprofen with no relief. The patient was seen here 2 days ago with the same symptoms. She was prescribed Fioricet. She reports that this has not been helping. No fever or chills. The patient has an appointment with pain management tomorrow. She also has an appointment with her primary care physician in 4 days Review of Systems 10 system review performed and negative unless noted in HPI or below Past Medical/Surgical History Medical Problems: (1) History of kidney stones (2) History of ovarian cyst (3) Major depressive disorder, recurrent, moderate (4) Nausea & vomiting (5) PID (pelvic inflammatory disease) Surgical Problems: (1) Hx of tonsillectomy (2) SBO (small bowel obstruction) Family History Patient reports no known family medical history. Social History Smoking Status: Former Smoker Drug Use: none Marital Status: single Housing Status: lives alone Occupation Status: [employer] Current/Historical Medications Scheduled Control Pills ( Control Pills), 1 TAB PO HS Clonidine Hcl (Catapres), 0.2 MG PO HS Duloxetine Hcl (Cymbalta), 60 MG PO HS Lamotrigine (Lamictal), 100 MG PO HS Pramipexole Dihydrochloride (Mirapex), 0.5 MG PO HS Scheduled PRN Acetamin/Butalbital/Caffeine (Fioricet), 1 TAB PO Q6H PRN for Pain Acetaminophen Tab (Tylenol), 650 MG PO Q4H PRN for Pain or Fever Unotzjn-Fmxnelbxvwzer-Fxhphfhu (Excedrin Migraine), 1 TAB PO UD PRN for Migraine Cetirizine (Zyrtec), 10 MG PO DAILY PRN for Allergy Symptoms Clonazepam (Klonopin), 1 MG PO TID PRN for Anxiety Diphenhydramine Hcl (Benadryl), 25 MG PO UD PRN for Allergy Symptoms Ibuprofen (Advil), 400-600 MG PO Q6H PRN for Headache or Pain Ondasetron Odt (Zofran Odt), 4 MG SL Q6H PRN for Nausea or Vomiting Polyethylene Glycol 3350 (Miralax), 17 GM PO DAILY PRN for Constipation Rizatriptan Benzoate (Maxalt), 10 MG PO UD PRN for Migraine Physical Exam Vital Signs Date Time Temp Pulse Resp B/P (MAP) Pulse Ox O2 Delivery O2 Flow Rate FiO2 03/14/17 17:48 77 16 136/84 100 03/14/17 15:49 36.9 20 20 153/105 99 Room Air Physical Exam VITALS: Vitals are noted on the nurse's note and reviewed by myself. Vital signs stable. GENERAL: 31-year-old female, in no acute distress, nondiaphoretic, well- developed well-nourished. SKIN: The skin was without rashes, erythema, edema, or bruising. HEAD: Normocephalic atraumatic. EARS: External auditory canals clear, tympanic membranes pearly ramos without erythema or effusion bilaterally. EYES: Pupils equal round and reactive to light and accommodation. Conjunctivae without injection, sclerae without icterus. Extraocular movements intact. MOUTH: Mucous membranes moist. NECK: Supple without nuchal rigidity. No lymphadenopathy. Cervical spine is nontender. No JVD. HEART: Regular rate and rhythm without murmurs gallops or rubs. LUNGS: Clear to auscultation bilaterally without wheezes, rales or rhonchi. No accessory muscle use. MUSCULOSKELETAL: No muscle atrophy, erythema, or edema noted. Normal gait. Strength 5/5 throughout. NEURO: Patient was alert and oriented to person place and time. Normal sensation to touch. No focal neurological deficits. Medical Decision & Procedures Medications Administered Medications (Trade) Dose Ordered Sig/Radha Route Start Time Stop Time Status Last Admin Dose Admin Promethazine HCl (Phenergan Inj) 25 mg NOW STAT IM 03/14/17 16:13 03/14/17 16:16 DC 03/14/17 16:39 25 MG Ketorolac Tromethamine (Toradol Inj) 60 mg NOW STAT IM 03/14/17 16:13 03/14/17 16:16 DC 03/14/17 16:40 60 MG Diphenhydramine HCl (Benadryl Inj) 50 mg ONE STAT IM 03/14/17 16:13 12/6/17 16:16 DC 03/14/17 16:39 50 MG Clonazepam (Klonopin Tab) 1 mg NOW STAT PO 03/14/17 17:42 03/14/17 17:43 DC 03/14/17 17:52 1 MG ED Course The patient was seen and examined She was medicated with Benadryl 50 mg, Toradol 60 mg, and Phenergan 5 mg Upon reevaluation, she was feeling better. She was given 1 dose of Klonopin 1 mg Discharge instructions were reviewed, and she was discharged in good condition Medical Decision Differential includes: Migraine, drug-seeking behavior, Acute intracranial bleed , trauma, meningitis, encephalitis, increased intracranial pressure, mass or mass effect, facial or dental infection, temporal arteritis, CVA, TIA, acute hypertensive emergency, sinusitis, carbon monoxide exposure. The patient is a 31-year-old female presents emergency department again with a migraine headache similar to her prior headaches. The patient has had multiple visits for the same complaint. She was here 2 days ago. Blood work was performed. She was instructed to follow-up with her primary care physician. She does have a follow-up appointment scheduled for early next week. She is also seeing pain management tomorrow. On exam, she is nontoxic in appearance. She is afebrile. There are no signs of nuchal rigidity.. I do not feel repeating blood work was necessary. I did also did not find imaging necessary. He is neurologically intact. The patient had good symptomatic relief with Phenergan, Toradol and Benadryl in the emergency department. She was noted to have slightly high blood pressure. This was discussed with the patient. The patient reports running out of her Klonopin last night. This could be a contributing factor. She was given 1 dose of Klonopin here in the emergency department. 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 She seemed happy with this plan of care. The patient was discharged in good condition. Of note, I am concerned about drug-seeking behavior. This will be noted in her chart for future reference. This chart was completed in part utilizing [employer] Voice Recognition software. Attempts were made to minimize the grammatical errors, random word insertions, pronoun errors and incomplete sentences. Any formal questions or concerns about the content, text or information contained within the body of this dictation should be directly addressed to the provider for clarification. Medication Reconcilliation Current Medication List: was personally reviewed by me Blood Pressure Screening Patient's blood pressure: Elevated blood pressure Blood pressure disposition: Referred to PCP Impression Primary Impression: Migraine Departure Information Dispostion Home / Self-Care Condition GOOD Referrals Noe Willett MD (PCP) Patient Instructions My [facility] Additional Instructions Please continue current medications as prescribed Please follow-up with the pain management doctor as scheduled tomorrow Please also follow up with your primary care physician as scheduled next week Try to stay well-hydrated. Increase oral fluids over the next several days. Avoid loud noises. Please rest in a dark room this evening. Return to the emergency department if you have any of the following symptoms: -Fever of 103F or greater -Persistent vomiting - Persistent diarrhea -Lethargy -Chest pain -Shortness of breath -Sudden, severe onset of pain
[2017-03-14] MEDS ORDERED: CLONAZEPAM 0.5 MG TAB PO STA (17:42)
[2017-03-14 17:48] VITALS: BP 136/84; PULSE 77; O2SAT 100
[2017-03-14] MEDS ORDERED: RIZA10TA18 PO (20:05)
[2017-03-14] MEDS ORDERED: CETI10TA84 PO (22:02)
[2017-03-14] MEDS ORDERED: BCPILLS PO (22:02)
[2017-03-14] MEDS ORDERED: POLY335019 PO (22:07)
[2017-03-14] MEDS ORDERED: DULO60CA44 PO (22:07)
[2017-03-14] MEDS ORDERED: PRAM1TAB47 PO (22:56)
[2017-03-14] MEDS ORDERED: CLON0.2T PO (22:56)
[2017-03-14] MEDS ORDERED: LAMO100T16 PO (22:56)
[2017-03-14] MEDS ORDERED: CLON1TAB3 PO (22:56)
== END 2017-03-14 17:54 | disposition home or self-care (01) ==
LOC: C.EDB 15:41 → C.EDA 17:54
DX: G43.909 Migraine, unspecified, not intractable, without status migrainosus (principal); N83.209 Unspecified ovarian cyst, unspecified side; F32.9 Major depressive disorder, single episode, unspecified; K56.609 Unspecified intestinal obstruction, unspecified as to partial versus complete obstruction; Z87.442 Personal history of urinary calculi; Z98.890 Other specified postprocedural states; Z87.891 Personal history of nicotine dependence; Z79.82 Long term (current) use of aspirin; Z79.899 Other long term (current) drug therapy

== ENCOUNTER 2017-03-18 10:34 | Emergency (ER) | payer OTHER ==
[~2017-03-18] VITALS: Ht 170.2 cm; Wt 83.7 kg
[~2017-03-18 10:34] MED LIST changes: +ASPI-390 PO; +BCPILLS PO; +CETI10TA84 PO; +CLON0.2T PO; +CLON1TAB3 PO; +DIPH25CA5 PO; +DULO60CA44 PO; +IBUP-1050 PO; +LAMO100T16 PO; +POLY335019 PO; +PRAM1TAB47 PO; +RIZA10TA18 PO
[2017-03-18 10:49] VITALS: Ht 170.2 cm; Wt 83.7 kg
[2017-03-18] MEDS ORDERED: FRCT/ PO (11:34)
[2017-03-18] MEDS ORDERED: DiphenhydrAMINE HCL 50 MG/ML VIAL IV STA (11:38)
[2017-03-18] MEDS ORDERED: KETOROLAC TROMETHAMINE 30 MG/ML VIAL IV STA (11:38)
[2017-03-18] MEDS ORDERED: PROMETHAZINE HCL INJ 25 MG/ML 1 ML VIAL IM STA (11:38)
[2017-03-18] MEDS ORDERED: LORAZEPAM 2 MG/ML 1 ML VIAL IV STA (12:29)
--- NOTE | 2017-03-18 12:54 | EMERGENCY ROOM VISIT NOTE ---
History First contact with patient: 11:29 Chief Complaint: HEADACHE Stated Complaint: SEVERE RECURRING HEADACHE History of Present Illness The patient is a 31 year old female who presents to the Emergency Room with complaints of recurring headache . The patient states that she has had these headaches for a long time. They usually ER cyclic in nature and she has had them over the last several days. She went to pain management 3 days ago and had adnexa but all nerve block. She states that that helped for that day and was slightly better yesterday but today it is worse again. The pain is mainly on the right side of the posterior head. She denies any associated visual changes or dizziness. The patient is scheduled to go back to the pain management next week for Botox injections. The patient does have a history of narcotic abuse in the past. She is currently taking her triptan as directed. She had one dose last night and this morning without any relief. This is not the worst headache of her life. The patient admits to symptoms associated nausea but denies any vomiting. Review of Systems 10 system review was performed and was negative unless stated otherwise history of present illness. Past Medical/Surgical History Medical Problems: (1) chronic migraine headache disorder (2) Exploratory laparotomy scar (3) Fibromyalgia (4) History of deviated nasal septum (5) History of kidney stones (6) History of ovarian cyst (7) History of small bowel obstruction (8) Major depressive disorder, recurrent, moderate (9) Nausea & vomiting (10) Ovarian cyst (11) PID (pelvic inflammatory disease) (12) Recurrent nephrolithiasis (13) Recurrent sinusitis (14) Restless leg syndrome Surgical Problems: (1) H/O lithotripsy (2) H/O wisdom tooth extraction (3) Hx of tonsillectomy (4) SBO (small bowel obstruction) (5) Ureterostomy status Family History Patient reports no known family medical history. Social History Smoking Status: Never Smoker Drug Use: none Marital Status: single Housing Status: lives alone Occupation Status: [employer] student Current/Historical Medications Scheduled Control Pills ( Control Pills), 1 TAB PO HS Clonidine Hcl (Catapres), 0.2 MG PO HS Duloxetine Hcl (Cymbalta), 60 MG PO HS Lamotrigine (Lamictal), 100 MG PO HS Pramipexole Dihydrochloride (Mirapex), 0.5 MG PO HS Scheduled PRN Acetamin/Butalbital/Caffeine (Fioricet), 1 TAB PO Q6H PRN for Migraine Acetaminophen Tab (Tylenol), 650 MG PO Q4H PRN for Pain or Fever Zoueiai-Lnpqptnpeauoa-Ipsulrjq (Excedrin Migraine), 1 TAB PO UD PRN for Migraine Cetirizine (Zyrtec), 10 MG PO DAILY PRN for Allergy Symptoms Clonazepam (Klonopin), 1 MG PO TID PRN for Anxiety Diphenhydramine Hcl (Benadryl), 25 MG PO UD PRN for Allergy Symptoms Ibuprofen (Advil), 400-600 MG PO Q6H PRN for Headache or Pain Ondasetron Odt (Zofran Odt), 4 MG SL Q6H PRN for Nausea or Vomiting Polyethylene Glycol 3350 (Miralax), 17 GM PO DAILY PRN for Constipation Rizatriptan Benzoate (Maxalt), 10 MG PO UD PRN for Migraine Physical Exam Vital Signs Date Time Temp Pulse Resp B/P (MAP) Pulse Ox O2 Delivery O2 Flow Rate FiO2 03/18/17 12:09 85 18 155/113 96 Room Air 03/18/17 10:49 37.0 99 18 144/96 99 Room Air Physical Exam GENERAL: 31-year-old white female appears lying in a darkened room in no acute distress. MENTAL STATUS: Patient is alert and oriented x3 EYES: PERRLA. EOMs intact. EARS: Canals clear. TMs without fluid level noted. NECK: Supple, no lymphadenopathy noted. No carotid bruits noted. LUNGS: Clear auscultation without wheezes rales or rhonchi. CARDIAC: Regular rate and rhythm without murmur. Pulses is full and equal throughout. ABDOMEN: Positive bowel sounds all 4 quadrants. Soft, nontender to palpation without organomegaly or masses. NEURO:Cranial nerves two through 12 intact. Cerebellar function intact with [id number]. Fine motor intact with alternating finger motions. Medical Decision & Procedures Medications Administered Medications (Trade) Dose Ordered Sig/Radha Route Start Time Stop Time Status Last Admin Dose Admin Ketorolac Tromethamine (Toradol Inj) 30 mg NOW STAT IV 03/18/17 11:38 03/18/17 11:41 DC 03/18/17 12:03 30 MG Diphenhydramine HCl (Benadryl Inj) 50 mg NOW STAT IV 03/18/17 11:38 03/18/17 11:41 DC 03/18/17 12:03 50 MG Promethazine HCl (Phenergan Inj) 25 mg NOW STAT IM 03/18/17 11:38 03/18/17 11:41 DC 03/18/17 12:03 25 MG Lorazepam (Ativan Inj) 1 mg NOW STAT IV 03/18/17 12:29 03/18/17 12:30 DC 03/18/17 12:35 1 MG ED Course The patient was evaluated. The patient's EMR medication list were reviewed. IV access was obtained. The patient was given Benadryl 50 mg IV, Phenergan 25 mg IM and Toradol 30 mg IV. The patient got restless legs from the Phenergan and therefore was given Ativan 1 mg IV with relief. The patient was reevaluated and stated her headache was tolerable at this time and was discharged home in stable condition. Medical Decision The patient presented with her typical migraine headache symptoms. She recently had a CT of her head done in November which was normal. I did not expect any other etiology. [place] Drug Monitoring Program Search Results: patient reviewed within database Medication Reconcilliation Current Medication List: was personally reviewed by me Blood Pressure Screening Patient's blood pressure: Elevated blood pressure Blood pressure disposition: Elevated BP felt to be situational Impression Primary Impression: Migraine Departure Information Dispostion Home / Self-Care Condition GOOD Referrals Noe Willett MD (PCP) Forms HOME CARE DOCUMENTATION FORM, IMPORTANT VISIT INFORMATION Patient Instructions ED Headache Migraine, [facility] Additional Instructions Continue current medications as prescribed. Keep scheduled appointment with pain management this week for Botox injection. If symptoms worsen in the interim, return to ER. Problem Qualifiers Primary Impression: Migraine Migraine type: unspecified Status migrainosus presence: with status migrainosus Intractability: not intractable Qualified Codes: G43.901 - Migraine, unspecified, not intractable, with status migrainosus
[2017-03-18 13:05] VITALS: BP 147/101; PULSE 87; TEMP 37; O2SAT 96
[2017-03-18] MEDS ORDERED: PROM25TA9 PO (18:20)
== END 2017-03-18 13:06 | disposition home or self-care (01) ==
LOC: C.EDB 10:36 → C.EDC 13:06
DX: G43.901 Migraine, unspecified, not intractable, with status migrainosus (principal); M79.7 Fibromyalgia; F33.9 Major depressive disorder, recurrent, unspecified; Z87.442 Personal history of urinary calculi; Z93.6 Other artificial openings of urinary tract status; Z98.818 Other dental procedure status; Z90.89 Acquired absence of other organs; Z98.890 Other specified postprocedural states; Z79.899 Other long term (current) drug therapy

== ENCOUNTER 2017-03-18 17:52 | Emergency (ER) | payer OTHER ==
[~2017-03-18] VITALS: Ht 162.6 cm; Wt 84.3 kg
[2017-03-18 18:01] VITALS: BP 155/100; PULSE 99; TEMP 36; O2SAT 99; Ht 162.6 cm; Wt 84.3 kg
[2017-03-18] MEDS ORDERED: PROM25TA9 PO (18:20)
--- NOTE | 2017-03-18 18:22 | EMERGENCY ROOM VISIT NOTE ---
History First contact with patient: 18:14 Chief Complaint: HEADACHE Stated Complaint: MIGRAINE History of Present Illness The patient is a 31 year old female who presents to the Emergency Room with complaints of continued migraine headache. The patient has had a headache for several days. She was seen in the emergency department a few days ago. She was also evaluated in the emergency department earlier today. The medications she received in the ER earlier today temporarily helped. Her headache reportedly came back. She has tried her medications at home with no relief. She also is experiencing nausea and sensitivity to light. Review of Systems 6 system review negative. Please see pertinent positives in the history of present illness section. Past Medical/Surgical History Medical Problems: (1) chronic migraine headache disorder (2) Exploratory laparotomy scar (3) Fibromyalgia (4) History of deviated nasal septum (5) History of kidney stones (6) History of ovarian cyst (7) History of small bowel obstruction (8) Major depressive disorder, recurrent, moderate (9) Nausea & vomiting (10) Ovarian cyst (11) PID (pelvic inflammatory disease) (12) Recurrent nephrolithiasis (13) Recurrent sinusitis (14) Restless leg syndrome Surgical Problems: (1) H/O lithotripsy (2) H/O wisdom tooth extraction (3) Hx of tonsillectomy (4) SBO (small bowel obstruction) (5) Ureterostomy status Family History Patient reports no known family medical history. Social History Smoking Status: Never Smoker Drug Use: none Marital Status: single Housing Status: lives alone Occupation Status: [employer] student Current/Historical Medications Scheduled Control Pills ( Control Pills), 1 TAB PO HS Clonidine Hcl (Catapres), 0.2 MG PO HS Duloxetine Hcl (Cymbalta), 60 MG PO HS Lamotrigine (Lamictal), 100 MG PO HS Pramipexole Dihydrochloride (Mirapex), 0.5 MG PO HS Scheduled PRN Acetamin/Butalbital/Caffeine (Fioricet), 1 TAB PO Q6H PRN for Migraine Acetaminophen Tab (Tylenol), 650 MG PO Q4H PRN for Pain or Fever Wqipjdg-Tqbrosvhbxfxr-Ubzaqkxv (Excedrin Migraine), 1 TAB PO UD PRN for Migraine Cetirizine (Zyrtec), 10 MG PO DAILY PRN for Allergy Symptoms Clonazepam (Klonopin), 1 MG PO TID PRN for Anxiety Diphenhydramine Hcl (Benadryl), 25 MG PO UD PRN for Allergy Symptoms Ibuprofen (Advil), 400-600 MG PO Q6H PRN for Headache or Pain Ondasetron Odt (Zofran Odt), 4 MG SL Q6H PRN for Nausea or Vomiting Polyethylene Glycol 3350 (Miralax), 17 GM PO DAILY PRN for Constipation Promethazine Hcl (Phenergan), 25 MG PO Q6H PRN for Nausea Rizatriptan Benzoate (Maxalt), 10 MG PO UD PRN for Migraine Physical Exam Vital Signs Date Time Temp Pulse Resp B/P (MAP) Pulse Ox O2 Delivery O2 Flow Rate FiO2 03/18/17 18:01 36.0 99 16 155/100 99 Room Air Physical Exam VITALS: Vitals are noted on the nurse's note and reviewed by myself. Vital signs stable. GENERAL: 31-year-old female, in no acute distress, nondiaphoretic, well- developed well-nourished. SKIN: The skin was without rashes, erythema, edema, or bruising. HEAD: Normocephalic atraumatic. EARS: External auditory canals clear, tympanic membranes pearly ramos without erythema or effusion bilaterally. EYES: Pupils equal round and reactive to light and accommodation. Conjunctivae without injection, sclerae without icterus. Extraocular movements intact. MOUTH: Mucous membranes moist. Tonsils are not enlarged. Pharynx without erythema or exudate. Uvula midline. Airway patent. Tongue does not deviate. NECK: Supple without nuchal rigidity. No lymphadenopathy. Cervical spine is nontender. No JVD. HEART: Regular rate and rhythm without murmurs gallops or rubs. LUNGS: Clear to auscultation bilaterally without wheezes, rales or rhonchi. No accessory muscle use. MUSCULOSKELETAL: Strength 5/5 throughout. NEURO: Patient was alert and oriented to person place and time. Normal sensation to touch. No focal neurological deficits. Medical Decision & Procedures ED Course The patient was seen and examined We had a conversation regarding the future care of her migraines. I also reviewed discharge instructions. She voiced understanding, and was discharged in good condition Medical Decision Differential diagnosis: Migraine, tension headache, cluster headaches, drug- seeking behavior, meningitis, intracranial hemorrhage This patient is a 31-year-old female that returns the emergency department complaining of a continued migraine headache. On exam, she is nontoxic in appearance. She does not have any neurologic deficits. She does not appear dehydrated. She is afebrile. The patient was evaluated in the emergency department earlier today for the same complaint. She has been seen in the ER 4 times in the last 10 days. I had a long conversation with the patient regarding the future care of her headaches. I informed her that we have ruled out an emergent cause for the headaches. I kindly told her there is nothing more the ER could offer her. I did provide her a prescription for Phenergan. She was instructed to take Phenergan at home in addition to [id number] Benadryl as needed for headaches as these medications seemed to help in the emergency department. She was also instructed to continue take other medications as prescribed. She will follow-up with pain management and establish with a primary care doctor for further care. This chart was completed in part utilizing [employer] Voice Recognition software. Attempts were made to minimize the grammatical errors, random word insertions, pronoun errors and incomplete sentences. Any formal questions or concerns about the content, text or information contained within the body of this dictation should be directly addressed to the provider for clarification. Impression Primary Impression: Migraine Additional Impression: Drug-seeking behavior Departure Information Dispostion Home / Self-Care Condition GOOD Prescriptions Promethazine Hcl (Phenergan) 25 Mg Tab 25 MG PO Q6H Y for Nausea, #15 TAB Prov: Wendy Ventura, LISBET 03/18/17 Referrals Noe Willett MD (PCP) Patient Instructions My [facility] Additional Instructions You were evaluated today in the emergency department for continued headache. Unfortunately, there are no new options for us to offer you for your chronic headaches. You were provided a prescription for Phenergan. Please take 1 tab every 6 hours as needed for nausea. Please continue to follow with pain management. Please also try to see a neurologist as soon as possible. For further treatment, please also establish a primary care physician. You are welcome to return to the emergency department for any new or concerning symptoms Problem Qualifiers
== END 2017-03-18 18:32 | disposition home or self-care (01) ==
LOC: C.EDB 17:53 → C.EDD 18:32
DX: G43.909 Migraine, unspecified, not intractable, without status migrainosus (principal); Z76.5 Malingerer [conscious simulation]; M79.7 Fibromyalgia; Z87.442 Personal history of urinary calculi; N73.9 Female pelvic inflammatory disease, unspecified; G25.81 Restless legs syndrome; Z79.3 Long term (current) use of hormonal contraceptives; Z79.899 Other long term (current) drug therapy

== ENCOUNTER 2017-05-10 16:42 | Observation (INO) | payer OTHER ==
[~2017-05-10] VITALS: Ht 162.6 cm; Wt 87.5 kg
[~2017-05-10 16:42] MED LIST changes: +PROM25TA9 PO
--- NOTE | 2017-05-10 18:15 | EMERGENCY ROOM VISIT NOTE ---
History Report prepared by Yane: Felice Parker Under the Supervision of: Dr. Oleksandr Madden M.D. First contact with patient: 17:59 Chief Complaint: HEADACHE Stated Complaint: PERSISTENT MIGRAINE- [facility] RE[facility]ERR[facility] History of Present Illness The patient is a 31 year old female who presents to the Emergency Room with complaints of a persistent and severe migraine that she has been experiencing for the past three days. The patient states that her headache began to gradually worsen five days ago, and peaked in severity three days ago. This is one of the most severe headaches that she has ever had. Her headaches usually present evenly over her bilateral eyebrows, but this headache is much more persistent over her right eyebrow. There is also associated neck pain and stiffness. Her headache is worsened by light. The patient follows with Andreea Poe [facility], and visited with her today. Andreea called Dr. Crystal - On-call [facility] at [facility] and asked for direct admission. This was not accomplished so Andreea sent her into the Emergency Department for admission to the hospital for overnight observation. The patient has had MRI and CT studies performed in the past, roughly 4 years ago. She was recently prescribed Augmentin and Prednisone for a sinus infection a few days ago. She has been constipated since starting these prescriptions. Source of History: patient Onset: 3 days Position: head Symptom Intensity: severe Quality: other (Migraine) Timing: other (Persistent) Modifying Factors (Worsening): other (light) Associated Symptoms: + neck pain Review of Systems See HPI for pertinent positives and negatives. A total of ten systems were reviewed and were otherwise negative. Past Medical & Surgical Medical Problems: (1) chronic migraine headache disorder (2) Exploratory laparotomy scar (3) Fibromyalgia (4) History of deviated nasal septum (5) History of kidney stones (6) History of ovarian cyst (7) History of small bowel obstruction (8) Major depressive disorder, recurrent, moderate (9) Nausea & vomiting (10) Ovarian cyst (11) PID (pelvic inflammatory disease) (12) Recurrent nephrolithiasis (13) Recurrent sinusitis (14) Restless leg syndrome Surgical Problems: (1) H/O lithotripsy (2) H/O wisdom tooth extraction (3) Hx of tonsillectomy (4) SBO (small bowel obstruction) (5) Ureterostomy status Family History Patient reports no known family medical history. 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 Current/Historical Medications Scheduled Control Pills ( Control Pills), 1 TAB PO HS Clonidine Hcl (Catapres), 0.2 MG PO HS Duloxetine Hcl (Cymbalta), 60 MG PO HS Gabapentin (Neurontin), 100 MG PO TID Lamotrigine (Lamictal), 100 MG PO HS Magnesium Oxide (Mag-Ox), 400 MG PO HS Pramipexole Dihydrochloride (Mirapex), 1 MG PO HS Prednisone (Prednisone), 0 PO UD Riboflavin (Vitamin B-2), 400 MG PO DAILY Trazodone Hcl (Trazodone), 50 MG PO HS Scheduled PRN Bosrgtr-Oomcakowjufxs-Dsivrcoo (Excedrin Migraine), 1 TAB PO UD PRN for Migraine Clonazepam (Klonopin), 1 MG PO BID PRN for Anxiety Dicyclomine Hcl (Dicyclomine Hcl), 20 MG PO Q6 PRN for GI Upset Diphenhydramine Hcl (Benadryl), 25 MG PO UD PRN for Allergy Symptoms Ibuprofen (Advil), 400-600 MG PO Q6H PRN for Headache or Pain Ondasetron Odt (Zofran Odt), 4 MG SL Q6H PRN for Nausea or Vomiting Polyethylene Glycol 3350 (Miralax), 17 GM PO DAILY PRN for Constipation Allergies Coded Allergies: Metoclopramide (Verified Adverse Reaction, Intermediate, panic attacks, 05/10/17) Prochlorperazine (Verified Adverse Reaction, Intermediate, panic attack, ) Sulfa Antibiotics (Verified Adverse Reaction, Intermediate, vomiting, ) Ceftriaxone (Verified Adverse Reaction, Mild, CLAIMED FELT SKIN CRAWL; FIRE ANTS, 05/10/17) Physical Exam Vital Signs Date Time Temp Pulse Resp B/P (MAP) Pulse Ox O2 Delivery O2 Flow Rate FiO2 05/10/17 20:10 72 18 163/93 97 Room Air 05/10/17 18:56 64 05/10/17 16:57 37.0 83 17 159/100 99 Room Air Physical Exam GENERAL: Awake, alert, uncomfortable-appearing, in no distress HENT: Normocephalic, atraumatic. Oropharynx unremarkable. Mucous Membranes are dry. EYES: Normal conjunctiva. Sclera non-icteric. FATIMAH, EOMi NECK: Supple. No nuchal rigidity. FROM. No JVD. RESPIRATORY: Clear to auscultation. CARDIAC: Regular rate, normal rhythm. Extremities warm and well perfused. Pulses equal. ABDOMEN: Soft, non-distended. No tenderness to palpation. No rebound or guarding. No masses. RECTAL: Deferred. MUSCULOSKELETAL: Chest examination reveals no tenderness. The back is symmetrical on inspection without obvious abnormality. There is no CVA tenderness to palpation. No joint edema. LOWER EXTREMITIES: Calves are equal size bilaterally and non-tender. No edema. No discoloration. NEURO: Normal sensorium. No sensory or motor deficits noted. Normal cerebellar function with xnzqsk-yq-utys, alternating palms, qlhx-sa-esut SKIN: No rash or jaundice noted. Medical Decision & Procedures ER Provider Diagnostic Interpretation: Radiology results as stated below per my review and radiologist interpretation: CHEST ONE VIEW PORTABLE CLINICAL HISTORY: Abdominal pain. COMPARISON STUDY: Chest radiograph January 10, 2017. FINDINGS: Lung volumes are normal. Lungs are clear. No pneumothorax or pleural effusion is noted. Cardiac size is normal. Mediastinal contours are normal. There is no lucency under the hemidiaphragms to indicate pneumoperitoneum on this exam. IMPRESSION: No acute cardiopulmonary findings. Electronically signed by: Rafael Coyle M.D. 05/10/2017 7:32 PM Dictated Date/Time: 05/10/2017 7:31 PM Laboratory Results 05/10/17 18:45 Red Blood Count 3.96, Mean Corpuscular Volume 93.4, Mean Corpuscular Hemoglobin 30.8, Mean Corpuscular Hemoglobin Concent 33.0, Mean Platelet Volume 9.7, Neutrophils (%) (Auto) 76.9, Lymphocytes (%) (Auto) 14.4, Monocytes (%) (Auto) 8.1, Eosinophils (%) (Auto) 0.0, Basophils (%) (Auto) 0.1, Neutrophils # (Auto) 13.29, Lymphocytes # (Auto) 2.48, Monocytes # (Auto) 1.39, Eosinophils # (Auto) 0.00, Basophils # (Auto) 0.01 05/10/17 18:45 Test 05/10/17 00:00 05/10/17 18:45 05/10/17 18:50 Urine Color YELLOW Urine Appearance CLOUDY (CLEAR) Urine pH 7.0 (4.5-7.5) Urine Specific [place] 1.023 (1.000-1.030) Urine Protein NEG (NEG) Urine Glucose (UA) NEG (NEG) Urine Ketones NEG (NEG) Urine Occult Blood NEG (NEG) Urine Nitrite NEG (NEG) Urine Bilirubin NEG (NEG) Urine Urobilinogen NEG (NEG) Urine Leukocyte Esterase NEG (NEG) Urine WBC (Auto) 0 /hpf (0-5) Urine RBC (Auto) 0-4 /hpf (0-4) Urine Hyaline Casts (Auto) 0 /lpf (0-5) Urine Epithelial Cells (Auto) 0-5 /lpf (0-5) Urine Bacteria (Auto) NEG (NEG) Urine Test NEG (NEG) Urine Opiates Screen NEG (NEG) Urine Methadone, Qualitative NEG (NEG) Urine Barbiturates NEG (NEG) Urine Phencyclidine (PCP) Level NEG (NEG) Ur Amphetamine/Methamphetamine NEG (NEG) MDMA (Ecstasy) Screen NEG (NEG) Urine Benzodiazepines Screen NEG (NEG) Urine Cocaine Metabolite NEG (NEG) Urine Marijuana (THC) NEG (NEG) White Blood Count 17.25 K/uL (4.8-10.8) Red Blood Count 3.96 M/uL (4.2-5.4) Hemoglobin 12.2 g/dL (12.0-16.0) Hematocrit 37.0 % (37-47) Mean Corpuscular Volume 93.4 fL (80-100) Mean Corpuscular Hemoglobin 30.8 pg (25-34) Mean Corpuscular Hemoglobin Concent 33.0 g/dl (32-36) Platelet Count 475 K/uL (130-400) Mean Platelet Volume 9.7 fL (7.4-10.4) Neutrophils (%) (Auto) 76.9 % Lymphocytes (%) (Auto) 14.4 % Monocytes (%) (Auto) 8.1 % Eosinophils (%) (Auto) 0.0 % Basophils (%) (Auto) 0.1 % Neutrophils # (Auto) 13.29 K/uL (1.4-6.5) Lymphocytes # (Auto) 2.48 K/uL (1.2-3.4) Monocytes # (Auto) 1.39 K/uL (0.11-0.59) Eosinophils # (Auto) 0.00 K/uL (0-0.5) Basophils # (Auto) 0.01 K/uL (0-0.2) RDW Standard Deviation 47.1 fL (36.4-46.3) RDW Coefficient of Variation 13.8 % (11.5-14.5) Immature Granulocyte % (Auto) 0.5 % Immature Granulocyte # (Auto) 0.08 K/uL (0.00-0.02) Anion Gap 8.0 mmol/L (3-11) Est Creatinine Clear Calc Drug Dose 105.2 ml/min Estimated GFR () 108.9 Estimated GFR (Non- 94.0 BUN/Creatinine Ratio 16.1 (10-20) Calcium Level 9.0 mg/dl (8.5-10.1) Total Bilirubin 0.2 mg/dl (0.2-1) Direct Bilirubin < 0.1 mg/dl (0-0.2) Aspartate Amino Transf (AST/SGOT) 14 U/L (15-37) Alanine Aminotransferase (ALT/SGPT) 33 U/L (12-78) Alkaline Phosphatase 60 U/L (45-117) Total Protein 7.5 gm/dl (6.4-8.2) Albumin 3.6 gm/dl (3.4-5.0) Lipase 187 U/L (73-393) Influenza Type A Antigen Neg for Influ A (NEG) Influenza Type B Antigen Neg for Influ B (NEG) Laboratory results reviewed by me Medications Administered Medications (Trade) Dose Ordered Sig/Radha Route Start Time Stop Time Status Last Admin Dose Admin Sodium Chloride 2,000 ml @ 999 mls/hr Q2H1M STAT IV 05/10/17 18:17 05/10/17 20:17 DC 05/10/17 19:10 999 MLS/HR Ketorolac Tromethamine (Toradol Inj) 15 mg NOW STAT IV 05/10/17 18:17 05/10/17 18:21 DC 05/10/17 19:12 15 MG Dexamethasone Sodium Phosphate (Dexamethasone Inj Pf) 10 mg NOW ONCE IV 05/10/17 18:30 05/10/17 18:31 DC 05/10/17 19:11 10 MG Diphenhydramine HCl (Benadryl Inj) 25 mg NOW STAT IV 05/10/17 18:17 05/10/17 18:21 DC 05/10/17 19:11 25 MG Ondansetron HCl (Zofran Inj) 4 mg NOW STAT IV 05/10/17 18:17 05/10/17 18:21 DC 05/10/17 19:11 4 MG Diphenhydramine HCl (Benadryl Inj) 25 mg NOW STAT IV 05/10/17 20:24 05/10/17 20:26 DC 05/10/17 20:38 25 MG Metoclopramide HCl (Reglan Inj) 10 mg NOW STAT IV 05/10/17 20:24 05/10/17 20:26 DC 05/10/17 20:41 10 MG ECG Indication: other (Migraine) Rate (beats per minute): 62 Rhythm: sinus with SA, sinus rhythm Findings: no acute ischemic change, other (Early repolarization, normal axis) Change: Patient's electrocardiogram interpreted by me. ED Course 1758: The patient was evaluated in room A12. A complete history and physical exam was performed. 1816: Ordered Zofran 4 mg IV, Benadryl 25 mg IV, Toradol 15 mg IV, Sodium Chloride 2000 mL @ 999 mL/hr IV. 1829: Ordered Dexamethasone 10 mg IV. 1834: I discussed the patient with Dr. Marah Barcenas Neurology . He suggest discussing the case with a hospitalist for admission. He was under the impression that the patient would be admitted directly. 2017: I checked on the patient at this time. Her symptoms are unchanged. 2023: Ordered Reglan Inj 10 mg IV, Benadryl Inj 25 mg IV. 2039: I discussed the patient with Dr. Sharath Barcenas Hospitalist. He will evaluate the patient for further treatment. Medical Decision I reviewed the patient's past medical history, medications, and the nursing notes as described above. Differential diagnosis: Etiologies such as migraine headache, meningitis, sinusitis, CO exposure, ICH, SAH, infection, tumor, headache, sinus thrombosis, arterial dissection, as well as others were entertained. The patient is a 31-year-old woman with a past medical history of migraine headaches followed by [facility] since emergency Department referred from her neurology clinic by her neurology PHYSICAL SCIENCE AIDE for admission for pain control after having refractory migraine for the past 5 days per hpi. While the patient is uncomfortable but in no acute distress, afebrile stable vital signs. She is neuro intact including normal cerebellar function with rdojvx-iw-wjax, alternating palms, bhwi-ec-fumy. Labs demonstrate a leukocytosis to 17 however this in the setting of being on a prednisone taper for her migraines. Otherwise labs unremarkable. Neck is supple with full range of motion and the patient is afebrile. Meningitis is not likely. Patient given fluids, Toradol and Benadryl however denies any improvement. Discussed with the patient her listed allergies to Reglan which she says makes her restless. I explained that this is not an allergy however an adverse effect which can be mitigated by Benadryl and a slow IV push. She was agreeable to attempting this. Did discuss the case with Narinder Marx neurology on-call, who is aware of the PHYSICAL SCIENCE AIDE's plan for admission for pain control however it was believed that this would've been a direct admission. Agrees that if pain is unable to be controlled we can admit the patient for further management. Suggests reasonable to obtain a nonemergent MRI given that this has not been done in several years. However given the patient's persistent symptoms which include a ED visit to [facility] yesterday was admit the patient for pain control and neuro evaluation. Case was discussed with Narinder Jolley hospitalist, who will admit the patient for further management. Medication Reconcilliation Current Medication List: was personally reviewed by me Blood Pressure Screening Patient's blood pressure: Elevated blood pressure Referred to Hospitalist Consults Time Called: 1825 Consulting Physician: Dr. Marah Barcenas Neurology Returned Call: 1834 I discussed the patient with Dr. Marah Barcenas Neurology . He suggest discussing the case with a hospitalist for admission. He was under the impression that the patient would be admitted directly. Additional Consults: Time Called: 2036 Consulted Physician: Dr. Sharath Barcenas Hospitalist Returned Call: 2039 Additional Comments: I discussed the patient with Dr. Sharath Dhaliwal. He will evaluate the patient for further treatment. Impression Primary Impression: Migraine headache Scribe Attestation The scribe's documentation has been prepared under my direction and personally reviewed by me in its entirety. I confirm that the note above accurately reflects all work, treatment, procedures, and medical decision making performed by me. Departure Information Dispostion Being Evaluated By Hospitalist Referrals Noe Willett MD (PCP) Patient Instructions My [facility]
[2017-05-10] MEDS ORDERED: ONDANSETRON INJ 2 MG/ML 2 ML VIAL IV STA (18:17)
[2017-05-10] MEDS ORDERED: DiphenhydrAMINE HCL 50 MG/ML VIAL IV STA ×2 (18:17→20:24)
[2017-05-10] MEDS ORDERED: KETOROLAC TROMETHAMINE 30 MG/ML VIAL IV STA (18:17)
[2017-05-10] MEDS ORDERED: SODIUM CHLORIDE 0.9% 1000ML 2,000 ML IV STA (18:17)
[2017-05-10] MEDS ORDERED: PRED10TA PO (18:20)
[2017-05-10] MEDS ORDERED: GABA-112 PO (18:20)
[2017-05-10] MEDS ORDERED: TRAZ50TA35 PO (18:20)
[2017-05-10] MEDS ORDERED: MAGN400T6 PO (18:20)
[2017-05-10] MEDS ORDERED: VITB2100 PO (18:20)
[2017-05-10] MEDS ORDERED: DICY20TA10 PO (18:20)
[2017-05-10] MEDS ORDERED: DEXAMETHASONE **PF** INJ 10 MG/ML VIAL IV ONE (18:30)
[2017-05-10 19:08] LABS: BASO % 0.1 %; BASO ABS # 0.01 K/uL (0-0.2); HEMOGLOBIN 12.2 g/dL (12.0-16.0); IG# 0.08 K/uL (0.00-0.02); LYMPH % 14.4 %; LYMPH ABS # 2.48 K/uL (1.2-3.4); MEAN CELL VOLUME 93.4 fL (80-100); MEAN CORPUSCULAR HEMOGLOBIN 30.8 pg (25-34); MEAN PLATELET VOLUME 9.7 fL (7.4-10.4); MONO % 8.1 %; MONO ABS # 1.39 K/uL (0.11-0.59); NEUT % 76.9 %; NEUT ABS # 13.29 K/uL (1.4-6.5); PLATELET COUNT 475 K/uL (130-400); RED CELL DISTRIBUTION WIDTH CV 13.8 % (11.5-14.5); RED CELL DISTRIBUTION WIDTH SD 47.1 fL (36.4-46.3); WHITE BLOOD COUNT 17.25 K/uL (4.8-10.8)
[2017-05-10 19:26] LABS: ALBUMIN 3.6 gm/dl (3.4-5.0); ALT/SGPT 33 U/L (12-78); AST/SGOT 14 U/L (15-37); BLOOD UREA NITROGEN 13 mg/dl (7-18); CARBON DIOXIDE 25 mmol/L (21-32); CREATININE 0.83 mg/dl (0.60-1.20); GLUCOSE 112 mg/dl (70-99); LIPASE 187 U/L (73-393); POTASSIUM 3.9 mmol/L (3.5-5.1); SODIUM 138 mmol/L (136-145)
[2017-05-10 19:27] LABS: INFLUENZA B ANTIGEN Neg for Influ B (NEG)
[2017-05-10 19:29] LABS: ALKALINE PHOSPHATASE 60 U/L (45-117); TOTAL PROTEIN 7.5 gm/dl (6.4-8.2)
--- NOTE | 2017-05-10 19:33 | DIAGNOSTIC IMAGING REPORT ---
CHEST ONE VIEW PORTABLE CLINICAL HISTORY: Abdominal pain. COMPARISON STUDY: Chest radiograph January 10, 2017. FINDINGS: Lung volumes are normal. Lungs are clear. No pneumothorax or pleural effusion is noted. Cardiac size is normal. Mediastinal contours are normal. There is no lucency under the hemidiaphragms to indicate pneumoperitoneum on this exam. IMPRESSION: No acute cardiopulmonary findings. Electronically signed by: Rafael Coyle M.D. 05/10/2017 7:32 PM Dictated Date/Time: 05/10/2017 7:31 PM
[2017-05-10] MEDS ORDERED: METOCLOPRAMIDE HCL INJ 5 MG/ML 2 ML VIAL IV STA (20:24)
[2017-05-10] MEDS ORDERED: CLONAZEPAM 1 MG TAB PO ONE (21:29)
[2017-05-10] MEDS ORDERED: IBUPROFEN 200 MG TAB PO PRN (21:45)
[2017-05-10] MEDS ORDERED: DICYCLOMINE HCL 20 MG TAB PO PRN (21:45)
[2017-05-10] MEDS ORDERED: LORAZEPAM 2 MG/ML 1 ML VIAL IV STA (22:03)
[2017-05-10] MEDS ORDERED: LORAZEPAM 2 MG/ML 1 ML VIAL ONE (22:11)
[2017-05-10] MEDS ORDERED: POLYETHYLENE (MIRALAX) 17 GM PACK PO PRN (22:30)
[2017-05-10] MEDS ORDERED: GABAPENTIN 100 MG CAP PO ONE (22:45)
[2017-05-10] MEDS ORDERED: TRAZODONE HCL 50 MG TAB PO ONE (22:45)
[2017-05-10] MEDS ORDERED: LACTULOSE SYRUP 30 GM/45 ML UDP PO ONE (22:45)
[2017-05-10] MEDS ORDERED: GADAVIST IV PRN (23:00)
--- NOTE | 2017-05-10 23:06 | DIAGNOSTIC IMAGING REPORT ---
MRI OF THE BRAIN WITHOUT AND WITH IV CONTRAST CLINICAL HISTORY: Persistent headache. Blurred vision. COMPARISON STUDY: Head CT December 05, 2016. TECHNIQUE: Utilizing a 1.5 Norma magnet and dedicated coil, multiplanar, multiecho imaging of the brain was performed pre and postcontrast administration. IV administration of 8.5 mL of Gadavist contrast was uneventful. FINDINGS: This exam is mildly compromised by motion artifact. There are no foci of restricted diffusion. No acute intracranial hemorrhage, midline shift or mass effect is present. Brain volume is normal. Ventricular system is normal. The basilar cisterns are patent. There are no extra-axial collections. Flow-voids for the major intracranial vessels are present. There is no intracranial mass or pathologic enhancement. Calvarial signal is normal. There is mild polypoid mucosal thickening of the maxillary sinuses. Orbits are unremarkable. There is no fluid within the mastoid air cells. IMPRESSION: 1. Unremarkable MRI of the brain. No acute intracranial findings. 2. Study mildly compromised by motion artifact. 3. Mild polypoid mucosal thickening of the maxillary sinuses. Electronically signed by: Rafael Coyle M.D. 05/10/2017 11:04 PM Dictated Date/Time: 05/10/2017 11:00 PM
[2017-05-10] MEDS ORDERED: DULOXETINE HCL 60 MG CAP PO ONE (23:45)
[2017-05-10] MEDS ORDERED: CLONIDINE HCL 0.1 MG TAB PO ONE (23:45)
[2017-05-10] MEDS ORDERED: NSS + 20MEQ KCL 1000ML 1,000 ML IV ONE (23:45)
[2017-05-10] MEDS ORDERED: DOCUSATE SODIUM/SENNA 50/8.6MG TAB PO ONE (23:45)
[2017-05-11 00:15] VITALS: BP 147/90; PULSE 90; TEMP 37; O2SAT 98; Ht 162.6 cm; Wt 87.5 kg
[2017-05-11] MEDS ORDERED: IV FLUIDS COMPLETED PRN (00:30)
--- NOTE | 2017-05-11 03:03 | HISTORY & PHYSICAL EXAMINATION ---
DATE OF ADMISSION: 05/10/2017 PRIMARY CARE PHYSICIAN: Noe Willett MD. CHIEF COMPLAINT: Headache. HISTORY OF PRESENT ILLNESS: History obtained from the patient and records. Medical history significant for chronic migraine, mood disorder, anxiety disorder, past tobacco abuse, fibromyalgia as per records, chronic constipation, history of opiate misuse/abuse as per records. Recent confinement last December 2016 for abdominal pain secondary to severe constipation. 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 As per records, she has been diagnosed to have a migraine since 2010. Intermittent Botox injections. Daily headache described as bifrontal with photophobia, achy. Persistent headache symptoms which of late flares up every 3 days lasting 3 days , more concentrated on the right side of her head at worse, bilateral blurred vision. No chest pain, no shortness of breath, no arm or leg weakness. Minimal relief with home meds. Patient also complaining of some neck pain more in the right the last few days, denies trauma. No arm weakness, numbness, radiation. Patient was seen at the [facility] ER a few days ago. Diagnosis was migraine, some improvement with steroid course. Patient saw [facility] outpatient for migraine today. Patient sent to the Emergency Room for intractable migraine. Additional Neurology recommendations included a prolonged prednisone taper, riboflavin and magnesium prescription, and an MRI of the brain. At the Emergency Room, the patient received IV Decadron and Toradol, Reglan and diphenhydramine. Some improvement of headache; however, the patient's legs currently restless which she gets from the Reglan. MEDICAL HISTORY: As above. Patient's PCP tapering her off clonidine started by psychiatrist for sleep. She is on her last 2 days. SURGERIES: Exploratory laparotomy for bowel obstruction, cystoscopy, dental surgery, tonsillectomy, adenectomy, throat surgery. HOME MEDICATIONS: Include diphenhydramine, ibuprofen, Zofran, Excedrin, control pills, clonazepam, clonidine, dicyclomine, duloxetine, gabapentin, lamotrigine, mag oxide, polyethylene glycol, pramipexole, prednisone, trazodone. Riboflavin ALLERGIES: CEFTRIAXONE, REGLAN, SULFA. FAMILY HISTORY: Migraine, thyroid cancer, multiple sclerosis, colon and lung cancer, gastric cancer. PERSONAL AND SOCIAL HISTORY: Past tobacco use. No chronic intake of alcoholic beverages. 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 REVIEW OF SYSTEMS: As per HPI, more constipated, last BM was 3 days ago. All other ROS negative. PHYSICAL EXAMINATION: VITAL SIGNS: Blood pressure was noted to be 159/100, pulse rate 80, RR 17, temperature 36.7, sats 99 on room air. GENERAL: Noted to be slightly uncomfortable, obese, no respiratory distress. SKIN: Normal color. Warm. HEENT: [place] palpebral conjunctivae. No ptosis. Dry mucosa. NECK: Short, supple. Some tenderness on the right neck. LUNGS: Clear to auscultation. No tenderness. HEART: Regular rate and rhythm, no murmur. ABDOMEN: Soft, nontender. EXTREMITIES: No edema. No tenderness. No gross deformities. NEUROLOGIC: Coherent. No gross focality. LABORATORY DATA: Hemoglobin was noted to be 12.2, hematocrit 37, white cell count 17.35, platelets 475. Sodium 137, potassium 3.9, chloride 105, CO2 of 29, BUN 30, creatinine 0.8, glucose 112. Chest x-ray, no acute pulmonary findings. ASSESSMENT: 1. Intractable migraine. 2. Neck pain possibly musculoskeletal 3. Fibromyalgia as per records. 4. Anxiety, mood disorder as per records, stable as per patient. 5. Constipation. 6. Past tobacco abuse. 7. hx opioid misuse/abuse as per records PLAN: Observation [facility] Analgesia, NSAIDS, limited narcotic use. Continue steroid taper outlined by [facility] Neurology outpatient. MRI brain as per recommendation for worsening migraine attacks Further evaluation and management of cephalgia as per Neurology. Plain neck x-ray Bowel regimen. DVT prophylaxis, Lovenox subQ. Full code. MTDD
[2017-05-11] MEDS: KETOROLAC TROMETHAMINE 30 MG/ML VIAL IV PRN ×3 (05:45→20:19)
[2017-05-11 07:17] LABS: BASO % 0.1 %; BASO ABS # 0.01 K/uL (0-0.2); HEMATOCRIT 37.9 % (37-47); IG# 0.09 K/uL (0.00-0.02); LYMPH ABS # 1.35 K/uL (1.2-3.4); MEAN CELL VOLUME 95.9 fL (80-100); MEAN CORPUSCULAR HEMOGLOBIN 30.4 pg (25-34); MEAN CORPUSCULAR HGB CONC 31.7 g/dl (32-36); MEAN PLATELET VOLUME 9.8 fL (7.4-10.4); MONO % 5.4 %; MONO ABS # 0.73 K/uL (0.11-0.59); NEUT % 83.8 %; NEUT ABS # 11.32 K/uL (1.4-6.5); PLATELET COUNT 440 K/uL (130-400); RED CELL DISTRIBUTION WIDTH CV 14.1 % (11.5-14.5); RED CELL DISTRIBUTION WIDTH SD 49.6 fL (36.4-46.3)
[2017-05-11 07:26] LABS: INR 0.9 (0.9-1.1)
[2017-05-11 07:34] VITALS: BP 127/69; PULSE 74; TEMP 36.8; O2SAT 99
[2017-05-11] MEDS ORDERED: PNEUMOCOCCAL POLYSACCHARIDES 25 MCG/0.5 ML VIAL/SYR IM. ONE (08:00)
[2017-05-11] MEDS ORDERED: INFLUENZA VIRUS QUAD VACCINE 0.5 ML SYR IM. ONE (08:00)
[2017-05-11] MEDS ORDERED: INFLUENZA ADMINISTRATION CHARGE ONE (08:00)
[2017-05-11] MEDS ORDERED: PNEUMOCOCCAL ADMINISTRATION CHARGE ONE (08:00)
[2017-05-11] MEDS: GABAPENTIN 100 MG CAP PO SCH ×3 (08:29→21:15)
[2017-05-11] MEDS: DOCUSATE SODIUM/SENNA 50/8.6MG TAB PO SCH ×2 (08:29→21:16)
[2017-05-11] MEDS: ENOXAPARIN 40 MG/0.4 ML SYR SQ SCH (08:31)
[2017-05-11] MEDS: CYCLOBENZAPRINE HCL 5 MG TAB PO PRN ×2 (08:37→21:16)
[2017-05-11] MEDS: TRAMADOL HCL 50 MG TAB PO PRN ×2 (08:41→15:20)
--- NOTE | 2017-05-11 08:56 | DIAGNOSTIC IMAGING REPORT ---
CERVICAL SPINE 3 VIEWS CLINICAL HISTORY: Right-sided neck pain. Headache. FINDINGS: AP, lateral, and odontoid views of the cervical spine are obtained. No prior studies are available for comparison at the time of dictation. The skeletal structures are well mineralized. There is no radiographic evidence of fracture or subluxation. The odontoid process and lateral masses are intact as seen on the open-mouth view. The spinolaminar line is preserved. Vertebral body height and alignment are maintained. There is straightening of the cervical lordosis with reversal centered at C4-C5. The spinous processes appear intact. Tiny anterior osteophytes are seen in the lower cervical region. The disc spaces are maintained. The prevertebral soft tissues are within normal limits. The partially imaged apical lung parenchyma appears clear. IMPRESSION: No acute bony abnormality is seen involving the cervical spine. Dictated: 05/11/2017 7:50 AM Transcribed: 05/11/2017 8:55 AM Nitin Electronically signed by: Graham Burger M.D. 05/11/2017 8:58 AM Dictated Date/Time: 05/11/2017 7:50 AM
[2017-05-11] MEDS ORDERED: NON-FORMULARY MEDICATION (Riboflavin (Vitamin B-2) 400 MG) PO SCH (09:00)
--- NOTE | 2017-05-11 12:18 | Progress Note ---
Internal Med Progress Note Date of Service: May 11, 2017. Provider Documentation: SUBJECTIVE: Seen and examined at bedside States Headache is better but still significant Denies any chest pain, SOB, dizziness Also reports nausea but no vomiting OBJECTIVE: Vital Signs-as noted below Physical Exam: General Appearance:Moderately built and nourished, no apparent distress Head: normocephalic, Atraumatic Eyes: normal inspection, EOMI, PERRL Neck: supple, Trachea midline Respiratory/Chest: Normal breath sounds, CTA Cardiovascular: S1, S2, No murmur Abdomen/GI:Soft, Non tender, Bowel sounds present Extremities/Musculoskelatal:normal inspection, no edema Neurologic/Psych:AAOX3, grossly no focal neurological deficits Skin: normal color, warm Lab data as noted below. ASSESSMENT & PLAN: Intractable migraine:DD:Cluster Headache MRI Brain:No acute intracranial findings C-spine X ray:No acute bony abnormality is seen involving the cervical spine On Lamictal, Prednisone, Neurontin, Magnesium Oxide, Toradol PRN Neurology Consulted Leukocytosis secondary to steroids. No obvious signs of infection H/O Fibromyalgia Anxiety, Depression Continue home meds Denies suicidal/homicidal thoughts or any acute issues Past tobacco abuse. H/O opioid misuse/abuse as per records Constipation Avoid Narcotics as able Continue bowel regimen DVT Px: Lovenox SQ Code Status: Full code Disposition: Expect to discharge home when stable Vital Signs: Date Time Temp Pulse Resp B/P (MAP) Pulse Ox O2 Delivery O2 Flow Rate FiO2 05/11/17 07:50 Room Air 05/11/17 07:34 36.8 74 74 127/69 (88) 99 Room Air 05/11/17 00:15 37.0 90 18 147/90 98 Room Air 05/10/17 22:05 75 18 155/96 98 Room Air 05/10/17 21:36 70 18 156/94 Room Air 05/10/17 20:10 72 18 163/93 97 Room Air 05/10/17 18:56 64 05/10/17 16:57 37.0 83 17 159/100 99 Room Air Lab Results: Results Past 24 Hours Test 05/10/17 18:45 05/10/17 18:50 05/11/17 06:27 Range/Units White Blood Count 17.25 13.50 4.8-10.8 K/uL Red Blood Count 3.96 3.95 4.2-5.4 M/uL Hemoglobin 12.2 12.0 12.0-16.0 g/dL Hematocrit 37.0 37.9 37-47 % Mean Corpuscular Volume 93.4 95.9 80-100 fL Mean Corpuscular Hemoglobin 30.8 30.4 25-34 pg Mean Corpuscular Hemoglobin Concent 33.0 31.7 32-36 g/dl Platelet Count 475 440 130-400 K/uL Mean Platelet Volume 9.7 9.8 7.4-10.4 fL Neutrophils (%) (Auto) 76.9 83.8 % Lymphocytes (%) (Auto) 14.4 10.0 % Monocytes (%) (Auto) 8.1 5.4 % Eosinophils (%) (Auto) 0.0 0.0 % Basophils (%) (Auto) 0.1 0.1 % Neutrophils # (Auto) 13.29 11.32 1.4-6.5 K/uL Lymphocytes # (Auto) 2.48 1.35 1.2-3.4 K/uL Monocytes # (Auto) 1.39 0.73 0.11-0.59 K/uL Eosinophils # (Auto) 0.00 0.00 0-0.5 K/uL Basophils # (Auto) 0.01 0.01 0-0.2 K/uL RDW Standard Deviation 47.1 49.6 36.4-46.3 fL RDW Coefficient of Variation 13.8 14.1 11.5-14.5 % Immature Granulocyte % (Auto) 0.5 0.7 % Immature Granulocyte # (Auto) 0.08 0.09 0.00-0.02 K/uL Sodium Level 138 136-145 mmol/L Potassium Level 3.9 3.5-5.1 mmol/L Chloride Level 105 98-107 mmol/L Carbon Dioxide Level 25 21-32 mmol/L Anion Gap 8.0 3-11 mmol/L Blood Urea Nitrogen 13 7-18 mg/dl Creatinine 0.83 0.60-1.20 mg/dl Est Creatinine Clear Calc Drug Dose 105.2 ml/min Estimated GFR () 108.9 Estimated GFR (Non- 94.0 BUN/Creatinine Ratio 16.1 10-20 Random Glucose 112 70-99 mg/dl Calcium Level 9.0 8.5-10.1 mg/dl Magnesium Level 2.3 1.8-2.4 mg/dl Total Bilirubin 0.2 0.2-1 mg/dl Direct Bilirubin < 0.1 0-0.2 mg/dl Aspartate Amino Transf (AST/SGOT) 14 15-37 U/L Alanine Aminotransferase (ALT/SGPT) 33 12-78 U/L Alkaline Phosphatase 60 45-117 U/L Total Protein 7.5 6.4-8.2 gm/dl Albumin 3.6 3.4-5.0 gm/dl Lipase 187 73-393 U/L Influenza Type A Antigen Neg for Influ A NEG Influenza Type B Antigen Neg for Influ B NEG Prothrombin Time 9.8 9.0-12.0 SECONDS Prothromb Time International Ratio 0.9 0.9-1.1
[2017-05-11] MEDS: ONDANSETRON INJ 2 MG/ML 2 ML VIAL IV PRN ×2 (12:22→19:24)
[2017-05-11] MEDS ORDERED: DiphenhydrAMINE INJ 25 MG in SYRINGE 0 ML IV PRN (13:00)
--- NOTE | 2017-05-11 13:51 | Neurology Consultation ---
Neurology Consultation Date of Consultation: May 11, 2017. Attending Physician: Kwadwo Joshua MD Primary Care Physician: Noe Willett MD Reason for Consultation: headache History of Present Illness Source: patient Marta has a PMH of chronic migraine, mood disorder, anxiety disorder, past tobacco abuse, fibromyalgia, chronic constipation, history of opiate misuse, abuse (hospital chart). She moved to [facility] last year from [place] to go to [employer] school. She started having migraines since 2010, intermittent Botox injections. Headache described as bifrontal with photophobia, achy. Constant daily symptoms which of late flares up every 3 days, more concentrated on the right side of her head at worse, bilateral blurred vision. She was seen at the [facility] and given steroid taper which has not helped. She was then seen in our office in neurology outpatient for migraine. Do to the change in her headache intensity she was sent to the ED. In the ED she had the headache cocktail which did hel somewhat. She states the pain was for her to finish the steroid taper and then start gabapentin PRN with tylenol instead of a triptan due to her history of smoking and control. She was also to start riboflavin 400 mg and Mg++ 400 mg. She was also set up to see pain mgt for botox injections which she had previously that relieved the headaches. denies falls, CP, SOB, abdominal pain, weakness, numbness tingling, N, V. +headache, eye pain and blurred vision, right sided neck pain. Past Medical/Surgical History Medical Problems: (1) Abdominal pain Status: Acute (2) Acute headache Status: Acute (3) Cephalgia Status: Acute (4) Cervicitis Status: Acute (5) Constipation Status: Acute (6) Dermatitis Status: Acute (7) Diarrhea Status: Acute (8) Diarrhea Status: Acute (9) Diffuse abdominal pain Status: Acute (10) Dizziness Status: Acute (11) Drug-seeking behavior Status: Acute (12) Headache Status: Acute (13) Migraine Status: Acute (14) Migraine Status: Acute (15) Migraine Status: Acute (16) Migraine headache Status: Acute (17) Nausea vomiting and diarrhea Status: Acute (18) Ovarian cyst Status: Acute (19) Ovarian cyst Status: Acute (20) PID (acute pelvic inflammatory disease) Status: Acute (21) Rash Status: Acute (22) Rash and nonspecific skin eruption Status: Acute (23) Right lower quadrant abdominal pain Status: Acute (24) Right sided abdominal pain Status: Acute (25) UTI (urinary tract infection) Status: Acute (26) Vaginitis Status: Acute Social History Smoking Status: Current every day smoker Drug Use: none Marital Status: single Housing Status: lives alone Occupation Status: [employer] 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 Allergies Coded Allergies: Metoclopramide (Verified Adverse Reaction, Intermediate, panic attacks, 05/10/17) Prochlorperazine (Verified Adverse Reaction, Intermediate, panic attack, ) Sulfa Antibiotics (Verified Adverse Reaction, Intermediate, vomiting, ) Ceftriaxone (Verified Adverse Reaction, Mild, CLAIMED FELT SKIN CRAWL; FIRE ANTS, 05/10/17) Current Inpatient Medications Current Inpatient Medications Medications (Trade) Dose Ordered Sig/Radha Route Start Time Stop Time Status Last Admin Dose Admin Ketorolac Tromethamine (Toradol Inj) 30 mg Q6H PRN IV 05/10/17 21:00 05/15/17 20:59 05/11/17 12:23 30 MG Clonazepam (Klonopin Tab) 1 mg BID PRN PO 05/10/17 21:30 06/09/17 21:29 Enoxaparin Sodium (Lovenox Inj) 40 mg Q24H SQ 05/11/17 09:00 06/10/17 08:59 Tramadol HCl (Ultram Tab) 25 mg Q6H PRN PO 05/10/17 21:45 06/09/17 21:44 05/11/17 08:41 25 MG Ondansetron HCl (Zofran Inj) 4 mg Q6H PRN IV 05/10/17 21:45 06/09/17 21:44 05/11/17 12:22 4 MG Ibuprofen (Advil Tab) 400 mg Q6H PRN PO 05/10/17 21:45 06/09/17 21:44 Dicyclomine HCl (Bentyl Tab) 20 mg Q6 PRN PO 05/10/17 21:45 06/09/17 21:44 Duloxetine HCl (Cymbalta Cap) 60 mg HS PO 05/11/17 21:00 06/10/17 20:59 Gabapentin (Neurontin Cap) 100 mg TID PO 05/11/17 09:00 06/10/17 08:59 05/11/17 08:29 100 MG Lamotrigine (Lamictal Tab) 100 mg HS PO 05/11/17 21:00 06/10/17 20:59 Magnesium Oxide (Mag-Ox Tab) 400 mg HS PO 05/11/17 21:00 06/10/17 20:59 Pramipexole Dihydrochloride (miraPEX TAB) 1 mg HS PO 05/11/17 21:00 06/10/17 20:59 Prednisone (PredniSONE TAB) 60 mg Taper DAILY PO 05/11/17 09:00 05/29/17 08:59 05/11/17 08:29 60 MG Trazodone HCl (Desyrel Tab) 50 mg HS PO 05/11/17 21:00 06/10/17 20:59 Polyethylene (Miralax Powder Packet) 17 gm DAILY PRN PO 05/10/17 22:30 06/09/17 22:29 Cyclobenzaprine HCl (Flexeril Tab) 5 mg TID PRN PO 05/10/17 21:45 06/09/17 21:44 05/11/17 08:37 5 MG Senna/Docusate Sodium (Senokot S Tab) 1 tab BID PO 05/11/17 09:00 06/10/17 08:59 05/11/17 08:29 1 TAB Clonidine HCl (Catapres Tab) 0.1 mg HS PO 05/11/17 21:00 05/12/17 20:59 Gadobutrol (Gadavist) 8.5 mmol UD PRN IV 05/10/17 23:00 05/14/17 22:59 Miscellaneous (Iv Fluids Completed) 1 ea PRN PRN N/A 05/11/17 00:30 05/11/18 00:29 Diphenhydramine HCl 25 mg/Syringe 0.5 ml @ 1 mls/min Q6 PRN IV 05/11/17 13:00 06/10/17 12:59 UNV Physical Exam Vital Signs (Past 24 Hrs): Date Time Temp Pulse Resp B/P (MAP) Pulse Ox O2 Delivery O2 Flow Rate FiO2 05/11/17 07:50 Room Air 05/11/17 07:34 36.8 74 74 127/69 (88) 99 Room Air 05/11/17 00:15 37.0 90 18 147/90 98 Room Air 05/10/17 22:05 75 18 155/96 98 Room Air 05/10/17 21:36 70 18 156/94 Room Air 05/10/17 20:10 72 18 163/93 97 Room Air 05/10/17 18:56 64 05/10/17 16:57 37.0 83 17 159/100 99 Room Air Physical Exam: Constitutional: appearance nourished, healthy and normal Ears, Nose, Mouth and Throat: mucous membranes moist, no injection and skin normal, eyes normal Cardiovascular: normal S-1 and S-2 and regular rate and rhythm Respiratory: clear to auscultation (CTA) and no rales, rhonchi or wheeze Musculoskeletal: no peripheral edema and good distal pulses Skin: no stigmata of neurocutaneous disease noted and normal and intact Eyes: extraocular muscles intact (EOMI) and pupils equal, dilated but reactive, round and reactive to light (PERRL), good vascular pulsations NEUROLOGIC EXAMINATION: Mental status: Alert and interactive Oriented to full date and location Oriented to person Speech fluent with no evidence of aphasia Cranial Nerves smile eye brow raise symmetric, Reflexes: Deep tendon reflexes were symmetrical and graded 2/5. Plantar responses were flexor. Sensory: to light cool touch Coordination: finger to nose no bi pass Gait/Stance: Posture lying in bed. Motor: Negative for pronator drift of out stretched arms with eyes closed. Strength: biceps triceps hand machine rebuilder 5/5 bilaterally, hip flex plantar flex ext 5/5 Laboratory Results Past 24 Hours: 05/11/17 06:27 Red Blood Count 3.95, Mean Corpuscular Volume 95.9, Mean Corpuscular Hemoglobin 30.4, Mean Corpuscular Hemoglobin Concent 31.7, Mean Platelet Volume 9.8, Neutrophils (%) (Auto) 83.8, Lymphocytes (%) (Auto) 10.0, Monocytes (%) (Auto) 5.4, Eosinophils (%) (Auto) 0.0, Basophils (%) (Auto) 0.1, Neutrophils # (Auto) 11.32, Lymphocytes # (Auto) 1.35, Monocytes # (Auto) 0.73, Eosinophils # (Auto) 0.00, Basophils # (Auto) 0.01 05/10/17 18:45 Test 05/10/17 18:45 05/10/17 18:50 05/11/17 06:27 Anion Gap 8.0 mmol/L (3-11) Est Creatinine Clear Calc Drug Dose 105.2 ml/min Estimated GFR () 108.9 Estimated GFR (Non- 94.0 BUN/Creatinine Ratio 16.1 (10-20) Calcium Level 9.0 mg/dl (8.5-10.1) Magnesium Level 2.3 mg/dl (1.8-2.4) Total Bilirubin 0.2 mg/dl (0.2-1) Direct Bilirubin < 0.1 mg/dl (0-0.2) Aspartate Amino Transf (AST/SGOT) 14 U/L (15-37) Alanine Aminotransferase (ALT/SGPT) 33 U/L (12-78) Alkaline Phosphatase 60 U/L (45-117) Total Protein 7.5 gm/dl (6.4-8.2) Albumin 3.6 gm/dl (3.4-5.0) Lipase 187 U/L (73-393) Influenza Type A Antigen Neg for Influ A (NEG) Influenza Type B Antigen Neg for Influ B (NEG) White Blood Count 13.50 K/uL (4.8-10.8) Red Blood Count 3.95 M/uL (4.2-5.4) Hemoglobin 12.0 g/dL (12.0-16.0) Hematocrit 37.9 % (37-47) Mean Corpuscular Volume 95.9 fL (80-100) Mean Corpuscular Hemoglobin 30.4 pg (25-34) Mean Corpuscular Hemoglobin Concent 31.7 g/dl (32-36) Platelet Count 440 K/uL (130-400) Mean Platelet Volume 9.8 fL (7.4-10.4) Neutrophils (%) (Auto) 83.8 % Lymphocytes (%) (Auto) 10.0 % Monocytes (%) (Auto) 5.4 % Eosinophils (%) (Auto) 0.0 % Basophils (%) (Auto) 0.1 % Neutrophils # (Auto) 11.32 K/uL (1.4-6.5) Lymphocytes # (Auto) 1.35 K/uL (1.2-3.4) Monocytes # (Auto) 0.73 K/uL (0.11-0.59) Eosinophils # (Auto) 0.00 K/uL (0-0.5) Basophils # (Auto) 0.01 K/uL (0-0.2) RDW Standard Deviation 49.6 fL (36.4-46.3) RDW Coefficient of Variation 14.1 % (11.5-14.5) Immature Granulocyte % (Auto) 0.7 % Immature Granulocyte # (Auto) 0.09 K/uL (0.00-0.02) Prothrombin Time 9.8 SECONDS (9.0-12.0) Prothromb Time International Ratio 0.9 (0.9-1.1) Imaging MRI brain combo- Unremarkable MRI of the brain. No acute intracranial findings. Study mildly compromised by motion artifact. Mild polypoid mucosal thickening of the maxillary sinuses. Impression 31 year old female history of chronic migraine now with intractable headache Plan 1. steroids not working will stop at this time 2. start Depakone IV 500 mg q12h x 2 days 3. gabapentin 100 mg TID for headache relief 4. MRI -no acute intra cranial findings 5. ativan 1 g hs for sleep 6. OOB prn 7. pain mgt for occiput injection -patient previously had botox injection which were helpful 8. Mg++ 400 mg and riboflavin 400 mg as out patient 9. once headache is broke may discharge to home 10. 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 She is known to local pain management team but it is Sunday and they will not see her until Sunday for potential right suboccipital injection so we will try to ride things out until then with round to clock neurontin and iv depacon and ativan to induce sleep ( She has not been able to get any bsignificant sleep for days due to the pain and medication effects ) mri shows no abnormalities and exam is normal hopefully the pain will break to the point madi outpatient management can be resumed taper off the steorids as they have to date offered nothing other than weight gain and insomnia Yan Crystal MD
[2017-05-11] MEDS: DiphenhydrAMINE HCL 50 MG/ML VIAL IV PRN ×2 (14:12→20:16)
[2017-05-11] MEDS: CLONAZEPAM 1 MG TAB PO PRN (15:19)
[2017-05-11] MEDS: VALPROATE SOD IV 500 MG in DEXTROSE 5% 50ML 50 ML IV SCH (15:19)
[2017-05-11 15:45] VITALS: BP 150/85; PULSE 62; TEMP 37; O2SAT 97
[2017-05-11] MEDS ORDERED: MAGNESIUM OXIDE 400 MG TAB PO SCH (21:00)
[2017-05-11] MEDS ORDERED: TRAZODONE HCL 50 MG TAB PO SCH (21:00)
[2017-05-11] MEDS ORDERED: CLONIDINE HCL 0.2 MG PO SCH (21:00)
[2017-05-11] MEDS ORDERED: DULOXETINE HCL 60 MG CAP PO SCH (21:00)
[2017-05-11] MEDS ORDERED: LORAZEPAM 1 MG TAB PO SCH (21:00)
[2017-05-11] MEDS ORDERED: CLONIDINE HCL 0.1 MG TAB PO SCH (21:00)
[2017-05-11] MEDS ORDERED: PRAMIPEXOLE DIHYDROCHLORIDE 0.5 MG TAB PO SCH (21:00)
[2017-05-12 00:01] VITALS: BP 153/88; PULSE 77; TEMP 36.8; O2SAT 95
[2017-05-12] MEDS: ONDANSETRON INJ 2 MG/ML 2 ML VIAL IV PRN ×3 (02:07→13:35)
[2017-05-12] MEDS: VALPROATE SOD IV 500 MG in DEXTROSE 5% 50ML 50 ML IV SCH ×2 (02:07→13:36)
[2017-05-12] MEDS: KETOROLAC TROMETHAMINE 30 MG/ML VIAL IV PRN ×2 (02:08→08:05)
[2017-05-12] MEDS: DiphenhydrAMINE HCL 50 MG/ML VIAL IV PRN ×3 (02:08→13:34)
[2017-05-12 06:18] LABS: HEMATOCRIT 35.9 % (37-47); HEMOGLOBIN 11.4 g/dL (12.0-16.0); MEAN CELL VOLUME 95.7 fL (80-100); MEAN CORPUSCULAR HEMOGLOBIN 30.4 pg (25-34); MEAN CORPUSCULAR HGB CONC 31.8 g/dl (32-36); MEAN PLATELET VOLUME 9.5 fL (7.4-10.4); PLATELET COUNT 383 K/uL (130-400); RED CELL DISTRIBUTION WIDTH SD 49.2 fL (36.4-46.3); WHITE BLOOD COUNT 14.45 K/uL (4.8-10.8)
[2017-05-12 06:57] LABS: CREATININE 0.75 mg/dl (0.60-1.20); POTASSIUM 3.5 mmol/L (3.5-5.1)
[2017-05-12 07:14] VITALS: BP 149/102; PULSE 76; TEMP 37.1; O2SAT 97
[2017-05-12] MEDS: GABAPENTIN 100 MG CAP PO SCH ×2 (08:07→13:37)
[2017-05-12] MEDS: DOCUSATE SODIUM/SENNA 50/8.6MG TAB PO SCH (08:07)
[2017-05-12] MEDS: ENOXAPARIN 40 MG/0.4 ML SYR SQ SCH (08:07)
[2017-05-12] MEDS ORDERED: CLONIDINE HCL 0.1 MG TAB PO ONE (10:15)
--- NOTE | 2017-05-12 12:03 | Progress Note ---
Internal Med Progress Note Date of Service: May 12, 2017. Provider Documentation: SUBJECTIVE: Seen and examined at bedside States Headache is much better No new complaints Denies any chest pain, SOB, dizziness Eager to get discharged OBJECTIVE: Vital Signs-as noted below Physical Exam: General Appearance:Moderately built and nourished, no apparent distress Head: normocephalic, Atraumatic Eyes: normal inspection, EOMI, PERRL Neck: supple, Trachea midline Respiratory/Chest: Normal breath sounds, CTA Cardiovascular: S1, S2, No murmur Abdomen/GI:Soft, Non tender, Bowel sounds present Extremities/Musculoskelatal:normal inspection, no edema Neurologic/Psych:AAOX3, grossly no focal neurological deficits Skin: normal color, warm Lab data as noted below. ASSESSMENT & PLAN: Intractable migraine:DD:Cluster Headache MRI Brain:No acute intracranial findings C-spine X ray:No acute bony abnormality is seen involving the cervical spine On Lamictal, Prednisone, Neurontin, Magnesium Oxide, Toradol PRN Appreciate Neurology Input Leukocytosis secondary to steroids. No obvious signs of infection Prednisone discontinued Continue Depacon for now Neurontin Increased to TID Trazodone increased to 75mg QHS (Was on 50mg) H/O Fibromyalgia Anxiety, Depression Continue home meds Denies suicidal/homicidal thoughts or any acute issues Past tobacco abuse. H/O opioid misuse/abuse as per records Constipation Avoid Narcotics as able Continue bowel regimen DVT Px: Lovenox SQ Code Status: Full code Disposition: Plan to discharge home today Follow up with your PCP on 05/17/17 at 12:45pm Follow up with your Neurologist in 4 weeks Follow up- with your Pain management clinic as needed Seek immediate medical attention if your symptoms reoccur or worsen Vital Signs: Date Time Temp Pulse Resp B/P (MAP) Pulse Ox O2 Delivery O2 Flow Rate FiO2 05/12/17 12:10 36.6 88 20 144/94 (111) 97 Nasal Cannula 05/12/17 08:00 Room Air 05/12/17 07:14 37.1 76 18 149/102 (118) 97 Room Air 05/12/17 00:01 36.8 77 20 153/88 (109) 95 Room Air 05/12/17 00:00 Room Air 05/11/17 16:00 Room Air 05/11/17 15:45 37.0 62 16 150/85 (106) 97 Room Air Lab Results: Results Past 24 Hours Test 05/12/17 05:56 Range/Units White Blood Count 14.45 4.8-10.8 K/uL Red Blood Count 3.75 4.2-5.4 M/uL Hemoglobin 11.4 12.0-16.0 g/dL Hematocrit 35.9 37-47 % Mean Corpuscular Volume 95.7 80-100 fL Mean Corpuscular Hemoglobin 30.4 25-34 pg Mean Corpuscular Hemoglobin Concent 31.8 32-36 g/dl RDW Standard Deviation 49.2 36.4-46.3 fL RDW Coefficient of Variation 14.0 11.5-14.5 % Platelet Count 383 130-400 K/uL Mean Platelet Volume 9.5 7.4-10.4 fL Sodium Level 139 136-145 mmol/L Potassium Level 3.5 3.5-5.1 mmol/L Chloride Level 105 98-107 mmol/L Carbon Dioxide Level 29 21-32 mmol/L Anion Gap 5.0 3-11 mmol/L Blood Urea Nitrogen 9 7-18 mg/dl Creatinine 0.75 0.60-1.20 mg/dl Est Creatinine Clear Calc Drug Dose 116.4 ml/min Estimated GFR () 123.1 Estimated GFR (Non- 106.2 BUN/Creatinine Ratio 11.5 10-20 Random Glucose 84 70-99 mg/dl Calcium Level 8.0 8.5-10.1 mg/dl
[2017-05-12 12:10] VITALS: BP 144/94; PULSE 88; TEMP 36.6; O2SAT 97
[2017-05-12] MEDS: CLONAZEPAM 1 MG TAB PO PRN (12:37)
[2017-05-12] MEDS: CYCLOBENZAPRINE HCL 5 MG TAB PO PRN (12:37)
--- NOTE | 2017-05-12 13:07 | PROGRESS NOTE ---
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 She has a lot of preexisting problems including abdominal pain, chronic migraines, irritable bowel type issues and apparently in the past has had issues with opiod dependency. 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 She is known to our [facility] pain management group, particularly Flaquito Cole who has given her Botox injections for her migraines. In this aspect, her typical migraines have been under pretty good control until the last few weeks when a slightly different form of headache has emerged, i.e., the right occipital, frontal and periorbital pain which now spreads a little down the trapezius. She was brought to the hospital, her steroids were tapered as they were not doing in except making her overweight and unable to sleep. She has been started on Neurontin 100 mg 3 times a day. I placed her on Depakote and fusion yesterday, although in the past these have been a variable benefit in treatment of her migraines, and she is also on a program of Toradol and some antiemetics, was outlined in the chart. Unfortunately, her blood pressure has been elevated with diastolics running over 100 and while we were planning to try to send her home today, it is not clear this is going to occur until her blood pressure drops a little further. IMAGING DATA: Imaging studies have shown nothing new on the recent MRI and in fact shows very little chronically of any significance. OBJECTIVE: GENERAL: Examination reveals nonfocal. She is awake, alert, oriented in 3 spheres. HEENT: She has intact cranial nerves. NEUROLOGICAL: Normal station, gait and coordination. No tremor, tics, choreiform activity. Symmetrical reflexes. Downgoing toes. Normal strength. Normal sensation. There is an area of tenderness in the right occipital region and down over the trapezius which is not present on the left and it does refer some pain to the right orbital area. IMPRESSION AND PLAN: At this point then if we get her blood pressure down, she has probably cleared for discharge. She is off the steroids. She may need to go back on a clonidine which may be helping her blood pressure. I suggested to Dr. Davidson that we give her a limited amount of Ativan and raise her trazodone to 75 mg to 50 and hopefully we can get her some sleep, and she was going to just contact the pain management group on Sunday, specifically Dr. Cole to see if she could get in for a localized injection in the right suboccipital region. We are hoping we could get her evaluated on an inpatient basis, but unfortunately we did not see her until late Sunday afternoon, at which point the pain management group was off call until Sunday. We will see how things go. I did discuss things with both patient and Dr. Davidson. She has appointments with Andreea Poe set up within about 4 weeks and if she is still here in the morning, I will review things and again discuss the case with her attending physician and hopefully we can get her home tomorrow if not today. MTDD
[2017-05-12] MEDS ORDERED: TRAZ50TA35 PO (13:12)
--- NOTE | 2017-05-12 13:14 | Discharge Instructions ---
Discharge Instructions Date of Service May 12, 2017. Admission Reason for Admission: Headache Discharge Discharge Diagnosis / Problem: Migraine Discharge Goals Goal(s): Decrease discomfort, Improve function Activity Recommendations Activity Limitations: resume your previous activity Exercise/Sports Limitations: as tolerated . Instructions / Follow-Up Instructions / Follow-Up Follow up with your PCP on 05/17/17 at 12:45pm Follow up with your Neurologist in 4 weeks Follow up with your Pain management clinic as advised Seek immediate medical attention if your symptoms reoccur or worsen Current Hospital Diet Patient's current hospital diet: Regular Diet Discharge Diet Recommended Diet: Regular Diet Pending Studies Studies pending at discharge: no Medical Emergencies . Who to Call and When: Medical Emergencies: If at any time you feel your situation is an emergency, please call 911 immediately. . Non-Emergent Contact Non-Emergency issues call your: Primary Care Provider, Neurologist Call Non-Emergent contact if: you have a fever, your pain is not controlled, your pain is worsening, your pain is unusual for you, your pain is concerning you, you have any medication questions Seek immediate medical attention if your symptoms reoccur or worsen . . "Provider Documentation" section prepared by Kwadwo Joshua. . VTE Core Measure Inpt VTE Proph given/why not?: Enoxaparin (Lovenox)SQ
--- NOTE | 2017-05-12 13:20 | Discharge Summary ---
Discharge Summary Date of Service May 12, 2017. Discharge Summary Admission Date: May 10, 2017 at 21:29 Discharge Date: May 12, 2017 Discharge Disposition: Home Principal Diagnosis: Migraine Procedures: MRI Brain: 1. Unremarkable MRI of the brain. No acute intracranial findings. 2. Study mildly compromised by motion artifact. 3. Mild polypoid mucosal thickening of the maxillary sinuses C-spine X ray: No acute bony abnormality is seen involving the cervical spine. CXR: No acute cardiopulmonary findings. Consultations: Neurology Pending Studies/Follow-Up: Follow up with your PCP on 05/17/17 at 12:45pm Follow up with your Neurologist in 4 weeks Follow up with your Pain management clinic as advised Seek immediate medical attention if your symptoms reoccur or worsen Medication Reconciliation Continued Medications: Ndwogej-Ypoduccaveuuo-Kxdhsakc (Excedrin Migraine) 1 Tab Tab 1 TAB PO UD PRN for Migraine TAKE PER PACKAGE DIRECTIONS Control Pills ( Control Pills) Tab 1 TAB PO HS, TAB Clonazepam (Klonopin) 1 Mg Tab 1 MG PO BID PRN for Anxiety, TAB Clonidine Hcl (Catapres) 0.2 Mg Tab 0.2 MG PO HS, TAB Dicyclomine Hcl (Dicyclomine Hcl) 20 Mg Tab 20 MG PO Q6 PRN for GI Upset, TAB 11 Refills Diphenhydramine Hcl (Benadryl) 25 Mg Cap 25 MG PO UD PRN for Allergy Symptoms, CAP TAKE PER PACKAGE DIRECTIONS Duloxetine Hcl (Cymbalta) 60 Mg Cap 60 MG PO HS, CAP Gabapentin (Neurontin) 100 Mg Cap 100 MG PO TID, CAP Ibuprofen (Advil) 200 Mg Tab 400-600 MG PO Q6H PRN for Headache or Pain, TAB Lamotrigine (Lamictal) 100 Mg Tab 100 MG PO HS, TAB Magnesium Oxide (Mag-Ox) 400 Mg Tab 400 MG PO HS, TAB Ondasetron Odt (Zofran Odt) 4 Mg Tab 4 MG SL Q6H PRN for Nausea or Vomiting, TAB Polyethylene Glycol 3350 (Miralax) 1 Pow Pow 17 GM PO DAILY PRN for Constipation, GM Pramipexole Dihydrochloride (Mirapex) 0.5 Mg Tab 1 MG PO HS Riboflavin (Vitamin B-2) 100 Mg Tab 400 MG PO DAILY Trazodone Hcl (Trazodone) 50 Mg Tab 50 MG PO HS for 30 Days, #45 TAB (This prescription has been renewed) Discontinued Medications: Prednisone (Prednisone) 10 Mg Tab 0 PO UD, #1 PKT STERAPRED 10MG 12 DAY Admission Information HPI (per Admitting provider): CHIEF COMPLAINT: Headache. HISTORY OF PRESENT ILLNESS: History obtained from the patient and records. Medical history significant for chronic migraine, mood disorder, anxiety disorder, past tobacco abuse, fibromyalgia as per records, chronic constipation, history of opiate misuse/abuse as per records. Recent confinement last December 2016 for abdominal pain secondary to severe constipation. She moved to [facility] last year from [place] to attend [employer]. As per records, she has been diagnosed to have a migraine since 2010. Intermittent Botox injections. Daily headache described as bifrontal with photophobia, achy. Persistent headache symptoms which of late flares up every 3 days lasting 3 days , more concentrated on the right side of her head at worse, bilateral blurred vision. No chest pain, no shortness of breath, no arm or leg weakness. Minimal relief with home meds. Patient also complaining of some neck pain more in the right the last few days, denies trauma. No arm weakness, numbness, radiation. Patient was seen at the [facility] ER a few days ago. Diagnosis was migraine, some improvement with steroid course. Patient [place] [facility] [place] for migraine today. Patient sent to the Emergency Room for intractable migraine. Additional Neurology recommendations included a prolonged prednisone taper, riboflavin and magnesium prescription, and an MRI of the brain. At the Emergency Room, the patient received IV Decadron and Toradol, Reglan and diphenhydramine. Some improvement of headache; however, the patient's legs currently restless which she gets from the Reglan. Physical Exam (per Admitting): PHYSICAL EXAMINATION: VITAL SIGNS: Blood pressure was noted to be 159/100, pulse rate 80, RR 17, temperature 36.7, sats 99 on room air. GENERAL: Noted to be slightly uncomfortable, obese, no respiratory distress. SKIN: Normal color. Warm. HEENT: [place] palpebral conjunctivae. No ptosis. Dry mucosa. NECK: Short, supple. Some tenderness on the right neck. LUNGS: Clear to auscultation. No tenderness. HEART: Regular rate and rhythm, no murmur. ABDOMEN: Soft, nontender. EXTREMITIES: No edema. No tenderness. No gross deformities. NEUROLOGIC: Coherent. No gross focality. Hospital Course Intractable migraine:DD:Cluster Headache MRI Brain:No acute intracranial findings C-spine X ray:No acute bony abnormality is seen involving the cervical spine On Lamictal, Prednisone, Neurontin, Magnesium Oxide, Toradol PRN Appreciate Neurology Input Leukocytosis secondary to steroids. No obvious signs of infection Prednisone discontinued Continue Depacon for now Neurontin Increased to TID Trazodone increased to 75mg QHS (Was on 50mg) H/O Fibromyalgia Anxiety, Depression Continue home meds Denies suicidal/homicidal thoughts or any acute issues Past tobacco abuse. H/O opioid misuse/abuse as per records Constipation Avoid Narcotics as able Continue bowel regimen DVT Px: Lovenox SQ Code Status: Full code Disposition: Plan to discharge home today Follow up with your PCP on 05/17/17 at 12:45pm Follow up with your Neurologist in 4 weeks Follow up- with your Pain management clinic as needed Seek immediate medical attention if your symptoms reoccur or worsen Total time spent on discharge = This includes examination of the patient, discharge planning, medication reconciliation, and communication with other providers. Discharge Instructions Discharge Instructions Date of Service May 12, 2017. Admission Reason for Admission: Headache Discharge Discharge Diagnosis / Problem: Migraine Discharge Goals Goal(s): Decrease discomfort, Improve function Activity Recommendations Activity Limitations: resume your previous activity Exercise/Sports Limitations: as tolerated . Instructions / Follow-Up Instructions / Follow-Up Follow up with your PCP on 05/17/17 at 12:45pm Follow up with your Neurologist in 4 weeks Follow up with your Pain management clinic as advised Seek immediate medical attention if your symptoms reoccur or worsen Current Hospital Diet Patient's current hospital diet: Regular Diet Discharge Diet Recommended Diet: Regular Diet Pending Studies Studies pending at discharge: no Medical Emergencies . Who to Call and When: Medical Emergencies: If at any time you feel your situation is an emergency, please call 911 immediately. . Non-Emergent Contact Non-Emergency issues call your: Primary Care Provider, Neurologist Call Non-Emergent contact if: you have a fever, your pain is not controlled, your pain is worsening, your pain is unusual for you, your pain is concerning you, you have any medication questions Seek immediate medical attention if your symptoms reoccur or worsen . . "Provider Documentation" section prepared by Kwadwo Joshua. . VTE Core Measure Inpt VTE Proph given/why not?: Enoxaparin (Lovenox)SQ
[2017-05-12 13:59] VITALS: BP 144/94; PULSE 88; TEMP 36.6; O2SAT 97
[2017-05-12] MEDS ORDERED: TRAZODONE HCL 50 MG TAB PO SCH (21:00)
== END 2017-05-12 15:10 | disposition home or self-care (01) ==
LOC: C.EDB 16:44 → C.MS2W 21:29 → ENRESERV 22:41
PROVIDERS: ADMIT Internal Medicine; ATTEND Internal Medicine
DX: G43.909 Migraine, unspecified, not intractable, without status migrainosus (principal); Z87.442 Personal history of urinary calculi; Z79.3 Long term (current) use of hormonal contraceptives

== ENCOUNTER → 2017-05-24 | Outpatient (CLI) | payer OTHER ==
[~2017-05-24] MED LIST changes: -ACET325T96 PO; -CETI10TA84 PO; +DICY20TA10 PO; -FRCT/ PO; +GABA-112 PO; +MAGN400T6 PO; -PROM25TA9 PO; -RIZA10TA18 PO; +TRAZ50TA35 PO; +VITB2100 PO
--- NOTE | 2017-05-24 15:52 | DIAGNOSTIC IMAGING REPORT ---
FUSION CT SINUSES W/O HISTORY: 31 years-old Female J32.9 Chronic [id number] Hypertrophy of both inferior nasal chronic recurrent sinusitis COMPARISON: MRI the brain 05/10/2017, CT head 12/05/2016 TECHNIQUE: Multiple axial CT images of the paranasal sinuses were obtained without contrast. Axial [employer] images were also submitted. A dose lowering technique was used consistent with the principals of ANNA MARIE. FINDINGS: No acute intracranial abnormality is identified. Soft tissues are unremarkable. Orbits are within normal limits. Mastoid air cells and middle ear cavities are clear. No calvarial fracture or facial bone fracture. The sphenoid, and frontal sinuses as well as the ethmoid air cells are clear. There is mild polypoid mucosal thickening of the bilateral maxillary sinuses measuring up to 1.4 cm on the right and 1.2 cm on the left. There is mild rightward deviation and spurring of the nasal septum. Moderate sized left christopher bullosa. No Ismael cell identified. There is patency of the bilateral maxillary ostiomeatal units, frontoethmoidal and sphenoethmoidal recesses. The gabriela chip appears normal. Mild mucosal thickening of the left greater than right nasal turbinates. The nasopharynx appears unremarkable. IMPRESSION: 1. Mild polypoid mucosal thickening of the bilateral maxillary sinuses redemonstrated with patency of the bilateral maxillary ostiomeatal units. 2. No additional significant paranasal sinus disease identified. 3. Mild rightward deviation and spurring of the nasal septum. 4. Moderate sized left christopher bullosa with mild left greater than right mucosal thickening of the nasal turbinates. The above report was generated using voice recognition software. It may contain grammatical, syntax or spelling errors. Electronically signed by: Malcolm Bowles M.D. 05/24/2017 3:51 PM Dictated Date/Time: 05/24/2017 3:46 PM
== END | disposition home or self-care (01) ==
LOC: C.CTS 15:07
DX: J32.9 Chronic sinusitis, unspecified (principal); J34.3 Hypertrophy of nasal turbinates; J34.2 Deviated nasal septum

== ENCOUNTER 2017-06-12 15:03 | Emergency (ER) | payer OTHER ==
[~2017-06-12] VITALS: Ht 162.6 cm; Wt 83.4 kg
[~2017-06-12 15:03] MED LIST changes: -ASPI-390 PO; -BCPILLS PO; -CLON1TAB3 PO; -DULO60CA44 PO; -GABA-112 PO; -IBUP-1050 PO; -LAMO100T16 PO; -MAGN400T6 PO; -POLY335019 PO; -VITB2100 PO
[2017-06-12 15:16] VITALS: TEMP 37.2; Ht 162.6 cm; Wt 83.4 kg
[2017-06-12] MEDS ORDERED: ONDANSETRON INJ 2 MG/ML 2 ML VIAL IV STA (15:37)
--- NOTE | 2017-06-12 15:44 | EMERGENCY ROOM VISIT NOTE ---
History First contact with patient: 15:20 Chief Complaint: FLANK PAIN Stated Complaint: RIGHT-SIDED PAIN, NAUSEA, VOMITING, HEADACHE History of Present Illness The patient is a 31 year old female who presents to the Emergency Room with complaints of right sided flank pain for a couple of days. Pain is currently 8/ 10. She also reports decreased appetite, nausea, vomiting, headaches, night sweats without fever, Burning with urination/low urinary output. Denies diarrhea. Denies vaginal symptoms. On control. Denies sexual activity. she rates the pain an 8/10. She does have a history of kidney stones and she feels as though her symptoms are related to a kidney stone. She does have a history of migraines. Review of Systems See above for pertinent positives & negatives. A total of 10 systems reviewed and were otherwise negative. Past Medical/Surgical History Medical Problems: (1) chronic migraine headache disorder (2) Exploratory laparotomy scar (3) Fibromyalgia (4) History of deviated nasal septum (5) History of kidney stones (6) History of ovarian cyst (7) History of small bowel obstruction (8) Major depressive disorder, recurrent, moderate (9) Nausea & vomiting (10) Ovarian cyst (11) PID (pelvic inflammatory disease) (12) Recurrent nephrolithiasis (13) Recurrent sinusitis (14) Restless leg syndrome Surgical Problems: (1) H/O lithotripsy (2) H/O wisdom tooth extraction (3) Hx of tonsillectomy (4) SBO (small bowel obstruction) (5) Ureterostomy status Family History Patient reports no known family medical history. Social History Smoking Status: Never Smoker Drug Use: none Marital Status: single Housing Status: lives alone Occupation Status: [employer] Current/Historical Medications Scheduled Control Pills ( Control Pills), 1 TAB PO HS Duloxetine Hcl (Cymbalta), 60 MG PO HS Gabapentin (Neurontin), 100 MG PO TID Lamotrigine (Lamictal), 100 MG PO HS Magnesium Oxide (Mag-Ox), 400 MG PO HS Riboflavin (Vitamin B-2), 400 MG PO DAILY Scheduled PRN Acetaminophen (Tylenol), 1,000 MG PO Q6-8HRS PRN for Headache or Pain Ilgojix-Cczsyxpxuxaor-Ryydppzf (Excedrin Migraine), 1 TAB PO UD PRN for Migraine Clonazepam (Klonopin), 1 MG PO BID PRN for Anxiety Diphenhydramine Hcl (Benadryl), 25-50 MG PO prn ud PRN for Allergy Symptoms Ibuprofen (Advil), 400-600 MG PO Q6H PRN for Headache or Pain Ondasetron Odt (Zofran Odt), 4 MG SL Q6H PRN for Nausea or Vomiting Polyethylene Glycol 3350 (Miralax), 17 GM PO DAILY PRN for Constipation Pramipexole Dihydrochloride (Mirapex), 0.5 MG PO HS PRN for RESTLESS LEGS Physical Exam Vital Signs Date Time Temp Pulse Resp B/P (MAP) Pulse Ox O2 Delivery O2 Flow Rate FiO2 06/12/17 18:01 58 16 122/59 97 Room Air 06/12/17 15:16 37.2 95 17 155/98 97 Room Air Physical Exam GENERAL: Patient is awake alert in no acute distress EYES: The conjunctivae are clear. The pupils are round and reactive. EARS, NOSE, MOUTH AND THROAT: Mucous membranes are moist. TM's clear bilaterally , posterior oropharynx is clear. NECK: The neck is nontender and supple. RESPIRATORY: Normal respiratory effort, no wheezing, rales or ronchi CARDIOVASCULAR: Regular rate and rhythm noted there no murmurs rubs or gallops normal S1 normal S2 GASTROINTESTINAL: The abdomen is soft. Bowel sounds are present in all quadrants. Abdomen is nontender, no rebound, guarding or rigidity BACK: right sided CVA tenderness MUSCULOSKELETAL/EXTREMITIES:full ROM at all extremities SKIN: There is no obvious evidence of any rash. There are no petechiae, pallor or cyanosis noted. NEUROLOGIC: Patient is awake alert and oriented x3 Medical Decision & Procedures Laboratory Results 06/12/17 16:17 Red Blood Count 3.94, Mean Corpuscular Volume 92.1, Mean Corpuscular Hemoglobin 30.2, Mean Corpuscular Hemoglobin Concent 32.8, Mean Platelet Volume 9.3, Neutrophils (%) (Auto) 57.1, Lymphocytes (%) (Auto) 32.9, Monocytes (%) (Auto) 8.3, Eosinophils (%) (Auto) 1.4, Basophils (%) (Auto) 0.2, Neutrophils # (Auto) 4.95, Lymphocytes # (Auto) 2.85, Monocytes # (Auto) 0.72, Eosinophils # (Auto) 0.12, Basophils # (Auto) 0.02 06/12/17 16:17 Test 06/12/17 15:25 06/12/17 15:44 06/12/17 16:17 Urine Color YELLOW Urine Appearance TURBID (CLEAR) Urine pH 7.5 (4.5-7.5) Urine Specific [place] 1.018 (1.000-1.030) Urine Protein NEG (NEG) Urine Glucose (UA) NEG (NEG) Urine Ketones NEG (NEG) Urine Occult Blood NEG (NEG) Urine Nitrite NEG (NEG) Urine Bilirubin NEG (NEG) Urine Urobilinogen NEG (NEG) Urine Leukocyte Esterase SMALL (NEG) Urine WBC (Auto) 1-5 /hpf (0-5) Urine RBC (Auto) 0-4 /hpf (0-4) Urine Hyaline Casts (Auto) 1-5 /lpf (0-5) Urine Epithelial Cells (Auto) 20-30 /lpf (0-5) Urine Bacteria (Auto) NEG (NEG) Bedside Urine Test NEG (NEG) White Blood Count 8.67 K/uL (4.8-10.8) Red Blood Count 3.94 M/uL (4.2-5.4) Hemoglobin 11.9 g/dL (12.0-16.0) Hematocrit 36.3 % (37-47) Mean Corpuscular Volume 92.1 fL (80-100) Mean Corpuscular Hemoglobin 30.2 pg (25-34) Mean Corpuscular Hemoglobin Concent 32.8 g/dl (32-36) Platelet Count 386 K/uL (130-400) Mean Platelet Volume 9.3 fL (7.4-10.4) Neutrophils (%) (Auto) 57.1 % Lymphocytes (%) (Auto) 32.9 % Monocytes (%) (Auto) 8.3 % Eosinophils (%) (Auto) 1.4 % Basophils (%) (Auto) 0.2 % Neutrophils # (Auto) 4.95 K/uL (1.4-6.5) Lymphocytes # (Auto) 2.85 K/uL (1.2-3.4) Monocytes # (Auto) 0.72 K/uL (0.11-0.59) Eosinophils # (Auto) 0.12 K/uL (0-0.5) Basophils # (Auto) 0.02 K/uL (0-0.2) RDW Standard Deviation 46.9 fL (36.4-46.3) RDW Coefficient of Variation 13.9 % (11.5-14.5) Immature Granulocyte % (Auto) 0.1 % Immature Granulocyte # (Auto) 0.01 K/uL (0.00-0.02) Anion Gap 7.0 mmol/L (3-11) Est Creatinine Clear Calc Drug Dose 131.1 ml/min Estimated GFR () 137.1 Estimated GFR (Non- 118.3 BUN/Creatinine Ratio 14.7 (10-20) Calcium Level 9.0 mg/dl (8.5-10.1) Total Bilirubin 0.2 mg/dl (0.2-1) Aspartate Amino Transf (AST/SGOT) 13 U/L (15-37) Alanine Aminotransferase (ALT/SGPT) 24 U/L (12-78) Alkaline Phosphatase 64 U/L (45-117) Total Protein 7.0 gm/dl (6.4-8.2) Albumin 3.3 gm/dl (3.4-5.0) Globulin 3.7 gm/dl (2.5-4.0) Albumin/Globulin Ratio 0.9 (0.9-2) Lipase 194 U/L (73-393) Medications Administered Medications (Trade) Dose Ordered Sig/Radha Route Start Time Stop Time Status Last Admin Dose Admin Ondansetron HCl (Zofran Inj) 4 mg NOW STAT IV 06/12/17 15:37 06/12/17 15:39 DC 06/12/17 16:02 4 MG Diphenhydramine HCl (Benadryl Inj) 12.5 mg NOW STAT IV 06/12/17 15:59 06/12/17 16:00 DC 06/12/17 16:02 12.5 MG Ketorolac Tromethamine (Toradol Inj) 30 mg NOW STAT IV 06/12/17 16:31 06/12/17 16:35 DC 06/12/17 17:59 30 MG Cetirizine HCl (zyrTEC TAB) 10 mg NOW ONCE PO 06/12/17 18:30 06/12/17 18:31 DC 06/12/17 18:26 10 MG Medical Decision This is a 31 y/o F who presents with right sided flank pain. DDx: UTI, Pyelo, Kidney stones, appendicitis, , ectopic , Ovarian cyst rupture , PID etc. U/A was normal. Urine was negative. CBC shows mild anemia which is chronic. CMP was normal. Abdominal/retroperitoneal Ultrasound did not reveal any pathologies/kidney stones. KUB was normal. She was given a dose of Zofran 4 mg for nausea. The patient was given Toradol for pain control; which did improve her pain. She did also present with pruritus; she reports having allergies and that she didn't get a chance to take her allergy medicine. She was given Benadryl and Zyrtec. The etiology of her pain is unclear, possibly musculoskeletal, however there was no evidence of any UTI/pyelo, or kidney stones. She was advised to follow up with her PCP within 2-3 days for a recheck of her condition. If she were to experience any further pain, worsening of symptoms, chest pain, shortness of breath or other concerns, she was advised to come back to the ER. Impression Primary Impression: Right flank pain Departure Information Dispostion Home / Self-Care Referrals Noe Willett MD (PCP) Patient Instructions My [facility]
[2017-06-12] MEDS ORDERED: DiphenhydrAMINE HCL 50 MG/ML VIAL IV STA (15:59)
[2017-06-12] MEDS ORDERED: NURSING VERBAL MED ORDER ONE (16:00)
[2017-06-12] MEDS ORDERED: ACET-1256 PO (16:04)
--- NOTE | 2017-06-12 16:05 | EMERGENCY ROOM VISIT NOTE ---
ED Visit Note First contact with patient: 15:20 Resident Physician Supervision Note: I was present with Dr. Jordan during the history and exam. I discussed the case with the resident and agree with the findings and plan as documented in the note. Documented By: Jose Quiroz
[2017-06-12] MEDS ORDERED: KETOROLAC TROMETHAMINE 30 MG/ML VIAL IV STA (16:31)
[2017-06-12 16:32] LABS: BASO % 0.2 %; BASO ABS # 0.02 K/uL (0-0.2); EOS % 1.4 %; EOS ABS # 0.12 K/uL (0-0.5); HEMATOCRIT 36.3 % (37-47); HEMOGLOBIN 11.9 g/dL (12.0-16.0); IG# 0.01 K/uL (0.00-0.02); LYMPH % 32.9 %; LYMPH ABS # 2.85 K/uL (1.2-3.4); MEAN CELL VOLUME 92.1 fL (80-100); MEAN CORPUSCULAR HEMOGLOBIN 30.2 pg (25-34); MEAN CORPUSCULAR HGB CONC 32.8 g/dl (32-36); MEAN PLATELET VOLUME 9.3 fL (7.4-10.4); MONO % 8.3 %; MONO ABS # 0.72 K/uL (0.11-0.59); NEUT % 57.1 %; NEUT ABS # 4.95 K/uL (1.4-6.5); PLATELET COUNT 386 K/uL (130-400); RED CELL DISTRIBUTION WIDTH CV 13.9 % (11.5-14.5); RED CELL DISTRIBUTION WIDTH SD 46.9 fL (36.4-46.3); WHITE BLOOD COUNT 8.67 K/uL (4.8-10.8)
[2017-06-12] MEDS ORDERED: ASPI-390 PO (16:33)
[2017-06-12] MEDS ORDERED: IBUP-1050 PO (16:33)
[2017-06-12 16:50] LABS: ALBUMIN 3.3 gm/dl (3.4-5.0); CREATININE 0.65 mg/dl (0.60-1.20); POTASSIUM 3.8 mmol/L (3.5-5.1)
--- NOTE | 2017-06-12 17:56 | DIAGNOSTIC IMAGING REPORT ---
ABDOMEN COMPLETE (US) CLINICAL HISTORY: 31 years-old Female presenting with right flank pain, nausea and vomiting. TECHNIQUE: Real-time grayscale and limited color Doppler ultrasound imaging of the abdomen was performed. COMPARISON: CT from 02/09/2017. FINDINGS: Pancreas: Visualized portions of the pancreatic head and body normal. Liver: Normal echogenicity and echotexture. The liver measures 14.2 cm in maximal sagittal dimension. No sonographic evidence of hepatic mass. Main portal vein patent with normal directional flow. Biliary: No intrahepatic biliary ductal dilatation. Common bile duct measures up to 2 mm in diameter. Gallbladder: Nonspecific gallbladder wall thickening likely due to partial decompression. No evidence of gallstones, gallbladder distention, or pericholecystic fluid or inflammatory change. Sonographic Brown's sign negative. Spleen: Normal in echogenicity and size, measuring 9.2 cm in length. Kidneys: Normal in size and echogenicity. Right kidney measures 10.9 cm, and left kidney measures 10.8 cm. No hydronephrosis. Vasculature: Visualized portions of the IVC and abdominal aorta normal. Ascites: None. Other: Focal apparent bladder wall thickening at the dome likely from underdistention and mass effect from an adjacent normal structures. Bilateral ureteral jets visualized. IMPRESSION: No sonographic evidence of acute intra-abdominal pathology. Specifically, no sonographic evidence of renal calculi. Electronically signed by: Mika Turner M.D. 06/12/2017 5:55 PM Dictated Date/Time: 06/12/2017 5:52 PM
--- NOTE | 2017-06-12 17:58 | DIAGNOSTIC IMAGING REPORT ---
KUB CLINICAL HISTORY: 31 years-old Female presenting with right flank pain. TECHNIQUE: Single supine view of the abdomen was obtained. COMPARISON: Plain radiograph from 01/10/[address] from 02/09/2017. FINDINGS: Nonobstructive bowel gas pattern. Mild stool burden. No gross pneumoperitoneum. Allowing for bowel gas and stool, no calcifications to suggest nephrolithiasis. Right hemipelvic phlebolith. Osseous structures normal. Lung bases clear. IMPRESSION: 1. No acute intra-abdominal pathology. Electronically signed by: Mika Turner M.D. 06/12/2017 5:57 PM Dictated Date/Time: 06/12/2017 5:55 PM
[2017-06-12 18:01] VITALS: BP 122/59; PULSE 58; O2SAT 97
[2017-06-12] MEDS ORDERED: MAGN400T6 PO (18:20)
[2017-06-12] MEDS ORDERED: VITB2100 PO (18:20)
[2017-06-12] MEDS ORDERED: GABA-112 PO (18:20)
[2017-06-12] MEDS ORDERED: CETIRIZINE HCL 10 MG TAB PO ONE (18:30)
[2017-06-12] MEDS ORDERED: BCPILLS PO (22:02)
[2017-06-12] MEDS ORDERED: DULO60CA44 PO (22:07)
[2017-06-12] MEDS ORDERED: POLY335019 PO (22:07)
[2017-06-12] MEDS ORDERED: LAMO100T16 PO (22:56)
[2017-06-12] MEDS ORDERED: CLON1TAB3 PO (22:56)
== END 2017-06-12 18:26 | disposition home or self-care (01) ==
LOC: C.EDB 15:04 → C.EDA 18:26
DX: R10.9 Unspecified abdominal pain (principal); R11.2 Nausea with vomiting, unspecified; R51 Headache; L29.9 Pruritus, unspecified; M79.7 Fibromyalgia; F33.1 Major depressive disorder, recurrent, moderate; G25.81 Restless legs syndrome; Z79.3 Long term (current) use of hormonal contraceptives; Z87.442 Personal history of urinary calculi; Z87.19 Personal history of other diseases of the digestive system

== ENCOUNTER 2017-06-25 16:51 | Emergency (ER) | payer OTHER ==
[~2017-06-25] VITALS: Ht 162.6 cm; Wt 84.1 kg
[~2017-06-25 16:51] MED LIST changes: +ACET-1256 PO; +ASPI-390 PO; -CLON0.2T PO; -DICY20TA10 PO; +IBUP-1050 PO; -TRAZ50TA35 PO
[2017-06-25 16:59] VITALS: TEMP 37; Ht 162.6 cm; Wt 84.1 kg
[2017-06-25] MEDS ORDERED: DiphenhydrAMINE HCL 50 MG/ML VIAL IV STA (18:01)
[2017-06-25] MEDS ORDERED: SODIUM CHLORIDE 0.9% 1000ML 1,000 ML IV STA (18:01)
[2017-06-25] MEDS ORDERED: LORAZEPAM 2 MG/ML 1 ML VIAL IV STA (18:01)
[2017-06-25] MEDS ORDERED: ONDANSETRON 8 MG/54 ML D5W IV STA (18:01)
[2017-06-25] MEDS ORDERED: DIHYDROERGOTAMINE MESYLATE 1 MG/ML VIAL IM ONE (18:15)
[2017-06-25] MEDS ORDERED: DEXAMETHASONE **PF** INJ 10 MG/ML VIAL IV ONE (18:15)
[2017-06-25] MEDS ORDERED: GABA-112 PO (18:20)
[2017-06-25] MEDS ORDERED: MAGN400T6 PO (18:20)
[2017-06-25] MEDS ORDERED: VITB2100 PO (18:20)
[2017-06-25 19:52] VITALS: BP 146/96; PULSE 86; O2SAT 98
--- NOTE | 2017-06-25 21:55 | EMERGENCY ROOM VISIT NOTE ---
History First contact with patient: 17:28 Chief Complaint: HEADACHE Stated Complaint: ACUTE MIGRAINE History of Present Illness The patient is a 31 year old female who presents to the Emergency Room with complaints of a migraine headache since Sunday. The patient reports a history of migraines, and reports that this pain feels similar with a right retro-orbital and right sided headache. She reports mild photophobia and phonophobia. The patient reports that she is currently under the management of [facility] neurology for her migraines. The patient is currently taking Neurontin, magnesium oxide and vitamin B2. When she does get a headache. She usually takes an additional gabapentin 1 g, Zofran, Tylenol and Klonopin. The patient reports that she did take his medications this morning without relief. She denies any risk of recent carbon monoxide exposure. She denies any other recent upper respiratory symptoms, sore throat, neck stiffness or back pain. She rates her discomfort an 8 out of 10. Review of Systems HEENT: Denies dizziness, visual problems, hearing loss, tinnitus. Denies difficulty swallowing or oral lesions. PULMONARY: Denies cough, shortness of breath, sputum production or hemoptysis. CARDIOVASCULAR: Denies chest pain, palpitations, dyspnea on exertion, orthopnea or peripheral edema. GASTROINTESTINAL: Denies diarrhea, constipation, nausea, vomiting, or abdominal pain. GENITOURINARY: Denies dysuria, frequency, urgency or nocturia. NEUROLOGIC: History of migraines. MUSCULOSKELETAL: Denies history of joint tenderness/swelling. SKIN: Denies rashes or lesions. PSYCHIATRIC: History of depression. ENDOCRINE: Denies history of diabetes or thyroid disorders. Past Medical/Surgical History Medical Problems: (1) chronic migraine headache disorder (2) Exploratory laparotomy scar (3) Fibromyalgia (4) History of deviated nasal septum (5) History of kidney stones (6) History of ovarian cyst (7) History of small bowel obstruction (8) Major depressive disorder, recurrent, moderate (9) Nausea & vomiting (10) Ovarian cyst (11) PID (pelvic inflammatory disease) (12) Recurrent nephrolithiasis (13) Recurrent sinusitis (14) Restless leg syndrome Surgical Problems: (1) H/O lithotripsy (2) H/O wisdom tooth extraction (3) Hx of tonsillectomy (4) SBO (small bowel obstruction) (5) Ureterostomy status Family History Patient reports no known family medical history. Social History Smoking Status: Never Smoker Drug Use: none Marital Status: single Housing Status: lives alone Occupation Status: [employer] student Current/Historical Medications Scheduled Control Pills ( Control Pills), 1 TAB PO HS Duloxetine Hcl (Cymbalta), 60 MG PO HS Gabapentin (Neurontin), 100 MG PO TID Lamotrigine (Lamictal), 100 MG PO HS Magnesium Oxide (Mag-Ox), 400 MG PO HS Riboflavin (Vitamin B-2), 400 MG PO DAILY Scheduled PRN Acetaminophen (Tylenol), 1,000 MG PO Q6-8HRS PRN for Headache or Pain Tdzghjo-Bjordgxoksqrw-Nrwnqlbc (Excedrin Migraine), 1 TAB PO UD PRN for Migraine Clonazepam (Klonopin), 1 MG PO BID PRN for Anxiety Diphenhydramine Hcl (Benadryl), 25-50 MG PO UD PRN for Allergy Symptoms Ibuprofen (Advil), 400-600 MG PO Q6H PRN for Headache or Pain Ondasetron Odt (Zofran Odt), 4 MG SL Q6H PRN for Nausea or Vomiting Polyethylene Glycol 3350 (Miralax), 17 GM PO DAILY PRN for Constipation Physical Exam Vital Signs Date Time Temp Pulse Resp B/P (MAP) Pulse Ox O2 Delivery O2 Flow Rate FiO2 06/25/17 19:52 86 18 146/96 98 06/25/17 19:52 86 18 146/96 98 Room Air 06/25/17 18:39 97 18 137/95 100 Room Air 06/25/17 16:59 37.0 79 18 151/90 97 Room Air Physical Exam CONSTITUTIONAL: Healthy and well nourished. Alert and oriented X 3 with positive affect. Patient appears in moderate discomfort. HEENT: Normocephalic, atraumatic. Pupils equal, round and reactive. Patient is photophobic, precluding funduscopic exam. NECK: Full active range of motion without discomfort. No nuchal rigidity or meningeal signs. No JVD or carotid bruits. RESPIRATORY: Clear to auscultation bilaterally with no wheezing, crackles, rhonchi or stridor. CARDIOVASCULAR: Regular rate and rhythm with no murmurs, rubs or gallops. GASTROINTESTINAL: Bowel sounds present in all quadrants. Soft and nontender to palpation. MUSCULOSKELETAL: Full range of motion of all joints without discomfort. INTEGUMENTARY: No rash or other significant dermatologic conditions noted. HEMATOLOGIC: No ecchymosis or petechiae noted. NEUROLOGIC: Cranial nerves II-XII grossly intact. No focal neurologic deficits noted. No ataxia with ambulation. Negative Romberg sign. Negative pronator drift. Medical Decision & Procedures Medications Administered Medications (Trade) Dose Ordered Sig/Radha Route Start Time Stop Time Status Last Admin Dose Admin Dihydroergotamine Mesylate (D.H.E. 45 Inj) 1 mg NOW ONCE IM 06/25/17 18:15 06/25/17 18:16 DC 06/25/17 18:27 1 MG Sodium Chloride 1,000 ml @ 999 mls/hr Q1H1M STAT IV 06/25/17 18:01 06/25/17 19:01 DC 06/25/17 18:08 999 MLS/HR Ondansetron HCl (Zofran 8mg Iv) 8 mg NOW STAT IV 06/25/17 18:01 06/25/17 18:06 DC 06/25/17 18:53 8 MG Diphenhydramine HCl (Benadryl Inj) 50 mg NOW STAT IV 06/25/17 18:01 06/25/17 18:06 DC 06/25/17 18:26 50 MG Dexamethasone Sodium Phosphate (Dexamethasone Inj Pf) 10 mg NOW ONCE IV 06/25/17 18:15 06/25/17 18:16 DC 06/25/17 18:26 10 MG Lorazepam (Ativan Inj) 1 mg NOW STAT IV 06/25/17 18:01 06/25/17 18:06 DC 06/25/17 18:26 1 MG ED Course Patient history and physical exam were performed. Nurse's notes were reviewed. Vital signs were reviewed showing a blood pressure 151/90. Patient is otherwise afebrile. I also reviewed prior medical records, showed the patient has been here multiple times in the past with migraines. I reviewed admission notes 05/10/17 when the patient was admitted for an intractable migraine. In addition to medication management, it was recommended that the patient follow- up with the pain clinic to discuss possible suboccipital injections. The patient had MRI/MRA studies that were normal. Upon further discussion with follow-up that she has had since her admission, she reports that the neurology clinic wanted to try medication management before she follow-up with the pain clinic. The patient reports that her frequency of migraines and severity have decreased significantly. The patient presents a list of medications that she would like to have administered intravenously for her migraine. She reports that these medications have helped the most in the past. I did review her list of medications which were appropriate for our migraine treatment protocol. IV access was established, and the patient was hydrated with a liter of normal saline. She received IM DHE, along with IV Zofran, Benadryl, Toradol, Decadron and lorazepam. Upon reassessment in 1 hour, the patient reports that her migraine was reduced to a 3 out of 10, and felt well enough for discharge home. The patient did ask several questions about her treatment protocol, and wanted to know why different providers administered different treatments. I suggested that she sit down with her neurologist to discuss a recommended ED treatment protocol. The patient reports that she has an appointment in mid July with her neurologist. I did encourage her to call the office to see if they can get her in sooner. She is welcome to return to the emergency department for any progressively worsening headache, and especially if her migraine symptoms change from her typical presentation. The patient was happy with plan of care, and voiced understanding of all discharge instructions. The patient was encouraged to follow-up with her PCP to have her blood pressure recheck as her blood pressure was elevated while in the emergency department. The patient also requested contact information for other local psychiatrist. She reports that she is depressed, denying any suicidal or homicidal thoughts. I did have our psychiatric shelter case manager provide information to the patient. Medical Decision Patient presents to emergency department with complaint of a migraine headache. Because her headaches are similar to what she has had before in the past, I do not feel that any further imaging or laboratory studies are warranted as she had a comprehensive workup completed in early May. History and physical exam findings are not consistent with meningitis, CVA/TIA, thromboembolic event , abscess, intracranial bleed or carbon monoxide poisoning. [place] Drug [place] Search Results: patient reviewed within database, no issues identified Medication Reconcilliation Current Medication List: was personally reviewed by me Blood Pressure Screening Patient's blood pressure: Elevated blood pressure Blood pressure disposition: Elevated BP felt to be situational Impression Primary Impression: Migraine Additional Impression: Depression Departure Information Dispostion Home / Self-Care Condition GOOD Referrals Noe Willett MD (PCP) Forms HOME CARE DOCUMENTATION FORM, IMPORTANT VISIT INFORMATION Patient Instructions My [facility] [employer] Additional Instructions Rest and remain well-hydrated. Continue follow-up with your neurologist for further management. Suggest discussing a treatment plan for the emergency department that way every time you come into the emergency department, you have the same treatment provided. Your neurologist should be able to recommend a treatment for optimal improvement. Problem Qualifiers Primary Impression: Migraine Migraine type: unspecified Status migrainosus presence: without status migrainosus Intractability: not intractable Qualified Codes: G43.909 - Migraine, unspecified, not intractable, without status migrainosus
[2017-06-25] MEDS ORDERED: BCPILLS PO (22:02)
[2017-06-25] MEDS ORDERED: POLY335019 PO (22:07)
[2017-06-25] MEDS ORDERED: DULO60CA44 PO (22:07)
[2017-06-25] MEDS ORDERED: LAMO100T16 PO (22:56)
[2017-06-25] MEDS ORDERED: CLON1TAB3 PO (22:56)
== END 2017-06-25 19:50 | disposition home or self-care (01) ==
LOC: C.EDB 16:52 → C.EDD 19:50
DX: G43.909 Migraine, unspecified, not intractable, without status migrainosus (principal); F32.9 Major depressive disorder, single episode, unspecified; M79.7 Fibromyalgia; Z87.442 Personal history of urinary calculi; G25.81 Restless legs syndrome; Z79.3 Long term (current) use of hormonal contraceptives; Z79.899 Other long term (current) drug therapy

== ENCOUNTER 2017-06-28 19:34 | Emergency (ER) | payer OTHER ==
[~2017-06-28] VITALS: Ht 162.6 cm; Wt 82.1 kg
[~2017-06-28 19:34] MED LIST changes: +BCPILLS PO; +CLON1TAB3 PO; +DULO60CA44 PO; +GABA-112 PO; +LAMO100T16 PO; +MAGN400T6 PO; +POLY335019 PO; -PRAM1TAB47 PO; +VITB2100 PO
[2017-06-28 19:38] VITALS: TEMP 37.2; Ht 162.6 cm; Wt 82.1 kg
[2017-06-28] MEDS ORDERED: SODIUM CHLORIDE 0.9% 1000ML 1,000 ML IV ONE ×2 (20:30→22:30)
[2017-06-28] MEDS ORDERED: DiphenhydrAMINE HCL 50 MG/ML VIAL IV STA (20:30)
[2017-06-28] MEDS ORDERED: KETOROLAC TROMETHAMINE 30 MG/ML VIAL IV STA (20:30)
[2017-06-28] MEDS ORDERED: DEXAMETHASONE INJ 10 MG in SYRINGE 0 ML IV ONE (20:30)
[2017-06-28] MEDS ORDERED: ONDANSETRON INJ 2 MG/ML 2 ML VIAL IV STA (20:30)
[2017-06-28] MEDS ORDERED: DIHYDROERGOTAMINE MESYLATE 1 MG/ML VIAL IV ONE (20:45)
[2017-06-28 20:46] LABS: BASO % 0.3 %; BASO ABS # 0.02 K/uL (0-0.2); EOS % 1.5 %; EOS ABS # 0.11 K/uL (0-0.5); HEMATOCRIT 41.9 % (37-47); HEMOGLOBIN 13.7 g/dL (12.0-16.0); IG# 0.01 K/uL (0.00-0.02); LYMPH % 42.1 %; LYMPH ABS # 2.99 K/uL (1.2-3.4); MEAN CELL VOLUME 91.7 fL (80-100); MEAN CORPUSCULAR HGB CONC 32.7 g/dl (32-36); MEAN PLATELET VOLUME 10.1 fL (7.4-10.4); MONO % 6.2 %; MONO ABS # 0.44 K/uL (0.11-0.59); NEUT % 49.8 %; NEUT ABS # 3.53 K/uL (1.4-6.5); PLATELET COUNT 443 K/uL (130-400); RED CELL DISTRIBUTION WIDTH CV 13.7 % (11.5-14.5); RED CELL DISTRIBUTION WIDTH SD 45.8 fL (36.4-46.3)
[2017-06-28 20:53] LABS: CALCIUM 9.1 mg/dl (8.5-10.1); CREATININE 0.97 mg/dl (0.60-1.20); POTASSIUM 3.6 mmol/L (3.5-5.1)
[2017-06-28] MEDS ORDERED: DEXAMETHASONE **PF** INJ 10 MG/ML VIAL ONE (20:53)
--- NOTE | 2017-06-28 20:57 | EMERGENCY ROOM VISIT NOTE ---
History First contact with patient: 19:43 Chief Complaint: HEADACHE Stated Complaint: ACUTE MIGRAINE +36 HRS, VOMITING History of Present Illness The patient is a 31 year old female who presents to the Emergency Room with complaints of migraine. The patient is a history of chronic migraines. She was here on June 25, 2017. She was treated at that time per her usual cocktail which includes IV Benadryl , IV Toradol, IV Decadron, and DHE. She states that at that time the cocktail was quite helpful. She went home. The next day she saw her primary care provider her primary care provider titrated up her citalopram from 60 mg daily to 90 mg daily. In addition at that time she notes she was being restarted on her full dose of Lamictal after being off of it for several weeks. Since these changes the patient reported going home and having a headache. She has been reporting a sharp headache on the left side. The pain is a sharp pain. She reports the also behind the eye. She reports that she has had severe nausea, much worse than her usual migraine. In addition to this she is reporting sensitivity to light, neck stiffness. She denies any fevers but states that she has had ongoing sweats for the past 2 days. She has some blurriness with her vision on both sides. In comparison to her usual headaches there are new features that concern her. The first is that the nausea is much more severe than her usual migraines. The second is that the migraine is on the left side this time. Usually her migraines are on the right side. Her migraine 3 days ago was on the right side. 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 She thinks that this may also account for the fact that she has had a second migraine in such a short period of time. She continues to maintain her oral intake, but her food intake and fluid intake has been minimal for the past day. She denies any abdominal pain, diarrhea, constipation. She does not have any dysuria or urinary frequency. She does state that she is currently also being treated for pelvic inflammatory disease and is currently on a course of doxycycline that she needs to take for another 4 days. She denies any chest pain, shortness of breath, coughing, wheezing. Review of Systems A 10 point review of systems was negative unless stated above. Past Medical/Surgical History Medical Problems: (1) chronic migraine headache disorder (2) Exploratory laparotomy scar (3) Fibromyalgia (4) History of deviated nasal septum (5) History of kidney stones (6) History of ovarian cyst (7) History of small bowel obstruction (8) Major depressive disorder, recurrent, moderate (9) Nausea & vomiting (10) Ovarian cyst (11) PID (pelvic inflammatory disease) (12) Recurrent nephrolithiasis (13) Recurrent sinusitis (14) Restless leg syndrome Surgical Problems: (1) H/O lithotripsy (2) H/O wisdom tooth extraction (3) Hx of tonsillectomy (4) SBO (small bowel obstruction) (5) Ureterostomy status Family History Patient reports no known family medical history. 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 Current/Historical Medications Scheduled Control Pills ( Control Pills), 1 TAB PO HS Doxycycline (Monohydrate) (Doxycycline), 100 MG PO BID Duloxetine HCl (Cymbalta), 30 MG PO HS Duloxetine Hcl (Cymbalta), 60 MG PO HS Gabapentin (Neurontin), 100 MG PO TID Lamotrigine (Lamictal), 100 MG PO HS Magnesium Oxide (Mag-Ox), 400 MG PO HS Riboflavin (Vitamin B-2), 400 MG PO DAILY Scheduled PRN Acetaminophen (Tylenol), 1,000 MG PO Q6-8HRS PRN for Headache or Pain Clonazepam (Klonopin), 1 MG PO BID PRN for Anxiety Diphenhydramine Hcl (Benadryl), 25-50 MG PO UD PRN for Allergy Symptoms Ondasetron Odt (Zofran Odt), 4 MG SL Q6H PRN for Nausea or Vomiting Polyethylene Glycol 3350 (Miralax), 17 GM PO DAILY PRN for Constipation Allergies As noted in EMR Physical Exam Vital Signs Date Time Temp Pulse Resp B/P (MAP) Pulse Ox O2 Delivery O2 Flow Rate FiO2 06/28/17 22:21 71 16 151/99 96 Room Air 06/28/17 19:38 37.2 96 20 156/104 98 Room Air Pain Rating (0-10): 10 Physical Exam Constitutional: Vital signs as above were reviewed. Eyes: Pupils equal, round, and reactive to light. Extraocular muscles are intact. No proptosis. Photophobia in the left eye Mild blurred vision on both sides; able to count fingers at 3 feet from eyes ENT: Mucous membranes are moist. Oropharynx is clear. No sinus tenderness. Cardiovascular: Heart with a regular rate and rhythm. Pulses are palpable and symmetric in all 4 extremities. No pedal edema appreciated. Respiratory: Lungs clear to auscultation bilaterally. No wheezes, rales, or rhonchi appreciated. No accessory muscle use. No retractions. No increased work of breathing. GI: Abdomen soft, nontender, nondistended. Normal active bowel sounds. No abdominal hernias appreciated. No rebound. No guarding. : No CVA tenderness appreciated. Musculoskeletal: No midline cervical or vertebral tenderness. No gross deformities. No bony tenderness. No calf swelling or tenderness. No neck stiffness Integumentary: Warm, dry, no rashes appreciated. Neurological: Patient awake, alert, and oriented x 3. Cranial nerves two through 12 grossly intact. Motor 5 out of 5 strength bilateral upper and lower extremities. Normal coordination No pronator drift Lymph: No cervical lymphadenopathy appreciated. Medical Decision & Procedures ER Provider Diagnostic Interpretation: [~ rep ct add3]] HEAD WITHOUT CONTRAST (CT) CT DOSE: 537.48 mGy.cm HISTORY: Headache Migraine intractable to usual therapies TECHNIQUE: Multiaxial CT images of the head were performed without the use of intravenous contrast. A dose lowering technique was utilized adhering to the principles of ALARA. Comparison: 12/05/2016 Findings: The paranasal sinuses and mastoid air cells are clear. The calvarium and skull base are intact. The ventricles and sulci are within normal limits. There is no mass, hematoma, midline shift, or acute infarct. Impression: No acute intracranial abnormality. The above report was generated using voice recognition software. It may contain grammatical, syntax or spelling errors. Electronically signed by: Santana Mccoy M.D. 06/28/2017 10:33 PM Dictated Date/Time: 06/28/2017 10:32 PM The status of this report is Signed. Draft = Not yet reviewed or approved by Radiologist. Signed = Reviewed and approved by Radiologist. <AttendingPhy></AttendingPhy> <FamilyPhy>Noe Willett MD</FamilyPhy> <PrimaryPhy>Noe Willett MD</PrimaryPhy> <UnitNumber>[id number]</ UnitNumber> <VisitNumber> Laboratory Results 06/28/17 20:15 Red Blood Count 4.57, Mean Corpuscular Volume 91.7, Mean Corpuscular Hemoglobin 30.0, Mean Corpuscular Hemoglobin Concent 32.7, Mean Platelet Volume 10.1, Neutrophils (%) (Auto) 49.8, Lymphocytes (%) (Auto) 42.1, Monocytes (%) (Auto) 6.2, Eosinophils (%) (Auto) 1.5, Basophils (%) (Auto) 0.3, Neutrophils # (Auto) 3.53, Lymphocytes # (Auto) 2.99, Monocytes # (Auto) 0.44, Eosinophils # (Auto) 0.11, Basophils # (Auto) 0.02 06/28/17 20:15 Test 06/28/17 20:15 06/28/17 23:05 White Blood Count 7.10 K/uL (4.8-10.8) Red Blood Count 4.57 M/uL (4.2-5.4) Hemoglobin 13.7 g/dL (12.0-16.0) Hematocrit 41.9 % (37-47) Mean Corpuscular Volume 91.7 fL (80-100) Mean Corpuscular Hemoglobin 30.0 pg (25-34) Mean Corpuscular Hemoglobin Concent 32.7 g/dl (32-36) Platelet Count 443 K/uL (130-400) Mean Platelet Volume 10.1 fL (7.4-10.4) Neutrophils (%) (Auto) 49.8 % Lymphocytes (%) (Auto) 42.1 % Monocytes (%) (Auto) 6.2 % Eosinophils (%) (Auto) 1.5 % Basophils (%) (Auto) 0.3 % Neutrophils # (Auto) 3.53 K/uL (1.4-6.5) Lymphocytes # (Auto) 2.99 K/uL (1.2-3.4) Monocytes # (Auto) 0.44 K/uL (0.11-0.59) Eosinophils # (Auto) 0.11 K/uL (0-0.5) Basophils # (Auto) 0.02 K/uL (0-0.2) RDW Standard Deviation 45.8 fL (36.4-46.3) RDW Coefficient of Variation 13.7 % (11.5-14.5) Immature Granulocyte % (Auto) 0.1 % Immature Granulocyte # (Auto) 0.01 K/uL (0.00-0.02) Anion Gap 6.0 mmol/L (3-11) Est Creatinine Clear Calc Drug Dose 87.1 ml/min Estimated GFR () 90.2 Estimated GFR (Non- 77.8 BUN/Creatinine Ratio 7.6 (10-20) Calcium Level 9.1 mg/dl (8.5-10.1) Medications Administered Medications (Trade) Dose Ordered Sig/Radha Route Start Time Stop Time Status Last Admin Dose Admin Sodium Chloride 1,000 ml @ 999 mls/hr Q1H1M ONCE IV 06/28/17 20:30 06/28/17 21:30 DC 06/28/17 20:48 999 MLS/HR Ondansetron HCl (Zofran Inj) 4 mg NOW STAT IV 06/28/17 20:30 06/28/17 20:31 DC 06/28/17 20:48 4 MG Diphenhydramine HCl (Benadryl Inj) 50 mg NOW STAT IV 06/28/17 20:30 06/28/17 20:31 DC 06/28/17 20:48 50 MG Ketorolac Tromethamine (Toradol Inj) 30 mg NOW STAT IV 06/28/17 20:30 06/28/17 20:31 DC 06/28/17 20:48 30 MG Dexamethasone Sodium Phosphate 10 mg/Syringe 2.5 ml @ 1 mls/min ONE ONCE IV 06/28/17 20:30 06/28/17 20:32 DC 06/28/17 20:30 1 MLS/MIN Dihydroergotamine Mesylate (D.H.E. 45 Inj) 1 mg NOW ONCE IV 06/28/17 20:45 06/28/17 20:46 DC 06/28/17 21:03 1 MG Morphine Sulfate (MoRPHine SULFATE INJ) 4 mg NOW STAT IV 06/28/17 22:20 06/28/17 22:21 DC 06/28/17 22:41 4 MG Sodium Chloride 1,000 ml @ 999 mls/hr Q1H1M ONCE IV 06/28/17 22:30 06/28/17 23:30 06/28/17 22:44 999 MLS/HR Ondansetron HCl (Zofran Inj) 4 mg STK-MED ONCE .ROUTE 06/28/17 22:47 06/28/17 22:48 DC 06/28/17 22:47 4 MG Procedure Peripheral IV access The patient was positioned supine. The procedure was done under clean technique. I attempted initially to access a left antecubital vein with an 18- gauge peripheral IV but on first attempt the vein rupture. I reattempted insertion at an alternative site in the left antecubital fossa with a 22-gauge needle and the peripheral IV was successfully inserted. Saline flush confirmed proper placement of the IV. Swabcap placed over top. The patient tolerated the procedure without any difficulties. Lumbar Puncture Indication: Rule-out Meningitis Sheet Taker: Dr. Efrain Rodrigez Procedure Description: The procedure was explained including the risks of pain, infection, bleeding, procedure failure, post lumbar puncture headache. A written consent was signed by the patient and by myself. The patient was positioned seated forward. The injection site was manually palpated between the iliac crests. This made between estimated level of L3-L4. The area was sterilized with Betadine 6 passes. 7 cc of 1% buffered lidocaine was injected subcutaneously and then further injected deep to achieve adequate anesthesia. Lumbar puncture needle was introduced and directed towards the spinal canal. There was clear CSF return, and the 4 tubes were filled. The patient tolerated the procedure without difficulty. Tubes were sent to lab for further analysis. ED Course 20:00 - A full history and examination was performed at the bedside 20:10 -IV access was obtained 20:30 - Migraine cocktail ordered Toradol, Benadryl, Zofran, lorazepam, DHE 1 L normal saline ordered for the patient The case was reviewed with Dr. Wakefield who will evaluate the patient separately 21:45 - Patient re-assessed; minimal relief from usual cocktail; headache improved minimally to 8/10 Patient agrees to LP Procedure discussed, verbal consent obtained Will order head CT to rule-out bleed 22:20 - Written consent signed 4 mg Morphine ordered On way to have CT brain 22:50 - A lumbar puncture was performed at the bedside; Dr. Wakefield was supervising The patient tolerated the procedure; continues to complain of headache; additional 2 mg IV morphine given CSF studies sent to the lab and are pending. 23:30 - The case was signed out to Dr. Efrain Wakefield who will continue on with the patient's care. Medical Decision Is a 31-year-old female with a history of migraines and anxiety presents with a severe headache. Differential diagnosis includes migraine, cluster headache, tension headache, intracranial bleed, head trauma. Initially the patient opted for conservative management using her usual migraine cocktail. On arrival she was afebrile, Normotensive and had a normal heart rate. Grossly her neurological exam was normal we did some initial labs to rule out other signs of infection. She did not have a leukocytosis, anemia, or any electrolyte disturbance. Unfortunately, after approximately an hour, is clear that this was not providing her with any adequate relief. We then decided that it would be appropriate to pursue a CT scan as well as a lumbar puncture given that the quality of the headache was different than her usual migraine. We did obtain a CT scan which was negative for intracranial bleed. Lumbar puncture was then performed and 4 tubes of clear CSF was obtained. The studies are still pending. Given the headache did not improve with her usual cocktail, we also gave additional dorsals doses of morphine with a mild to moderate effect. Based on her history it she had been restarted on some of her psychiatric medications quite abruptly including Lamictal and her citalopram being increased. Headache may also be related to polypharmacy and abrupt medication changes. Final disposition the patient is still pending. CSF studies are still in the lab. The case was signed up to Dr. Wakefield who will overtake the remainder the patient's care. [place] Drug [place] Search Results: patient reviewed within database Drug Monitoring Findings: Patient has not been prescribed any opiates since 02/08/2017. Head Trauma GCS Score: 15 Blood Pressure Screening Patient's blood pressure: Elevated blood pressure Blood pressure disposition: Elevated BP felt to be situational Impression Primary Impression: Migraine Departure Information Referrals Noe Willett MD (PCP) Patient Instructions My [facility]
[2017-06-28] MEDS ORDERED: CYM/30 PO (21:26)
[2017-06-28] MEDS ORDERED: DOXY-300 PO (21:30)
[2017-06-28] MEDS ORDERED: XYLOCAINE 1%/SOD BICARB 20 ML VIAL INFIL STA (22:16)
[2017-06-28] MEDS ORDERED: MoRPHine SULFATE 4 MG/ML 1 ML CARP\\VIAL IV STA (22:20)
--- NOTE | 2017-06-28 22:34 | DIAGNOSTIC IMAGING REPORT ---
HEAD WITHOUT CONTRAST (CT) CT DOSE: 537.48 mGy.cm HISTORY: Headache Migraine intractable to usual therapies TECHNIQUE: Multiaxial CT images of the head were performed without the use of intravenous contrast. A dose lowering technique was utilized adhering to the principles of ALARA. Comparison: 12/05/2016 Findings: The paranasal sinuses and mastoid air cells are clear. The calvarium and skull base are intact. The ventricles and sulci are within normal limits. There is no mass, hematoma, midline shift, or acute infarct. Impression: No acute intracranial abnormality. The above report was generated using voice recognition software. It may contain grammatical, syntax or spelling errors. Electronically signed by: Santana Mccoy M.D. 06/28/2017 10:33 PM Dictated Date/Time: 06/28/2017 10:32 PM
[2017-06-28] MEDS ORDERED: ONDANSETRON INJ 2 MG/ML 2 ML VIAL ONE (22:47)
[2017-06-28] MEDS ORDERED: MoRPHine SULFATE 2 MG/ML CARP IV STA (23:15)
[2017-06-28 23:42] LABS: CSF GLUCOSE 48 mg/dl (40-70); CSF TOTAL PROTEIN 38.8 mg/dl (15.0-45.0)
--- NOTE | 2017-06-28 23:46 | EMERGENCY ROOM VISIT NOTE ---
History Report prepared by Yane: Yolanda Meza Under the Supervision of: Dr. Efrain Wakefield D.O. First contact with patient: 19:46 Chief Complaint: HEADACHE Stated Complaint: ACUTE MIGRAINE +36 HRS, VOMITING History of Present Illness The patient is a 31 year old female who presents to the Emergency Room with complaints of migraine. The patient is a history of chronic migraines. She is actually here on June. She was treated at that time per her usual cocktail which includes IV Benadryl, IV Toradol, IV Decadron, and DHE. She states that at that time the cocktail was quite helpful. She went home. The next day she saw her primary care provider her primary care provider titrated up her citalopram from 60 mg daily to 90 mg daily. In addition at that time she notes she was being restarted on her full dose of Lamictal after being off of it for several weeks. Since these changes the patient reported going home and having a headache. She has been reporting a sharp headache on the left side. The pain is a sharp pain. She reports the also behind the eye. She reports that she has had severe nausea, much worse than her usual migraine. In addition to this she is reporting sensitivity to light, neck stiffness. She denies any fevers but states that she has had ongoing sweats for the past 2 days. She has some blurriness with her vision on both sides. In comparison to her usual headaches are few features that concern her. The first is that the nausea is much more severe than her usual migraines. The second is that the migraine is on the left side this time. Usually her migraines are on the right side. Her migraine 3 days ago was on the right side. 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 She thinks that this may also account for the fact that she has had a second migraine in such a short period of time. She continues to maintain her oral intake, but her food intake and fluid intake has been minimal for the past day. She denies any abdominal pain, diarrhea, constipation. She does not have any dysuria or urinary frequency. She does state that she is currently also being treated for pelvic inflammatory disease and is currently on a course of doxycycline that she needs to take for another 4 days. She denies any chest pain, shortness of breath, coughing, wheezing. Source of History: patient Onset: 2 days ago Position: head Quality: other (migraine ) Associated Symptoms: + nausea, No cough, No chest pain, No SOB Review of Systems See HPI for pertinent positives & negatives. A total of 10 systems reviewed and were otherwise negative. Past Medical & Surgical Medical Problems: (1) chronic migraine headache disorder (2) Exploratory laparotomy scar (3) Fibromyalgia (4) History of deviated nasal septum (5) History of kidney stones (6) History of ovarian cyst (7) History of small bowel obstruction (8) Major depressive disorder, recurrent, moderate (9) Nausea & vomiting (10) Ovarian cyst (11) PID (pelvic inflammatory disease) (12) Recurrent nephrolithiasis (13) Recurrent sinusitis (14) Restless leg syndrome Surgical Problems: (1) H/O lithotripsy (2) H/O wisdom tooth extraction (3) Hx of tonsillectomy (4) SBO (small bowel obstruction) (5) Ureterostomy status Family History Patient reports no known family medical history. Social History Smoking Status: Never Smoker Drug Use: none Marital Status: single Housing Status: lives alone Occupation Status: [employer] student Current/Historical Medications Scheduled Control Pills ( Control Pills), 1 TAB PO HS Doxycycline (Monohydrate) (Doxycycline), 100 MG PO BID Duloxetine HCl (Cymbalta), 30 MG PO HS Duloxetine Hcl (Cymbalta), 60 MG PO HS Gabapentin (Neurontin), 100 MG PO TID Lamotrigine (Lamictal), 100 MG PO HS Magnesium Oxide (Mag-Ox), 400 MG PO HS Riboflavin (Vitamin B-2), 400 MG PO DAILY Scheduled PRN Acetaminophen (Tylenol), 1,000 MG PO Q6-8HRS PRN for Headache or Pain Clonazepam (Klonopin), 1 MG PO BID PRN for Anxiety Diphenhydramine Hcl (Benadryl), 25-50 MG PO UD PRN for Allergy Symptoms Ondasetron Odt (Zofran Odt), 4 MG SL Q6H PRN for Nausea or Vomiting Polyethylene Glycol 3350 (Miralax), 17 GM PO DAILY PRN for Constipation Allergies Coded Allergies: Metoclopramide (Verified Adverse Reaction, Intermediate, panic attacks, ) Prochlorperazine (Verified Adverse Reaction, Intermediate, panic attack, 3 /22/18) Sulfa Antibiotics (Verified Adverse Reaction, Intermediate, vomiting, 06/28) Ceftriaxone (Verified Adverse Reaction, Mild, CLAIMED FELT SKIN CRAWL; FIRE ANTS, 06/28/17) Physical Exam Vital Signs Date Time Temp Pulse Resp B/P (MAP) Pulse Ox O2 Delivery O2 Flow Rate FiO2 06/28/17 23:38 71 18 138/87 97 Room Air 06/28/17 22:21 71 16 151/99 96 Room Air 06/28/17 19:38 37.2 96 20 156/104 98 Room Air Physical Exam CONSTITUTIONAL/VITAL SIGNS: Reviewed / noted above. GENERAL: Non-toxic in appearance. INTEGUMENTARY: Warm, dry, and [place]. HEAD: Normocephalic. EYES: without scleral icterus or trauma. ENT/OROPHARYNX: clear and moist. LYMPHADENOPATHY/NECK: Is supple without lymphadenopathy or meningismus. RESPIRATORY: Lungs clear and equal. CARDIOVASCULAR: Regular rate and rhythm. GI/ABDOMEN: Soft and nontender. No organomegaly or pulsatile mass. No rebound or guarding. Normal bowel sounds. EXTREMITIES: Warm and well perfused. BACK: No CVA tenderness. NEUROLOGICAL: Intact without focal deficits. PSYCHIATRIC: normal affect. MUSCULOSKELETAL: Normally developed with good muscle tone. Medical Decision & Procedures ER Provider Diagnostic Interpretation: Radiology results as stated below per my review and radiologist interpretation: HEAD WITHOUT CONTRAST (CT) CT DOSE: 537.48 mGy.cm HISTORY: Headache Migraine intractable to usual therapies TECHNIQUE: Multiaxial CT images of the head were performed without the use of intravenous contrast. A dose lowering technique was utilized adhering to the principles of ALARA. Comparison: 12/05/2016 Findings: The paranasal sinuses and mastoid air cells are clear. The calvarium and skull base are intact. The ventricles and sulci are within normal limits. There is no mass, hematoma, midline shift, or acute infarct. Impression: No acute intracranial abnormality. The above report was generated using voice recognition software. It may contain grammatical, syntax or spelling errors. Electronically signed by: Santana Mccoy M.D. 06/28/2017 10:33 PM Dictated Date/Time: 06/28/2017 10:32 PM Laboratory Results 06/28/17 20:15 Red Blood Count 4.57, Mean Corpuscular Volume 91.7, Mean Corpuscular Hemoglobin 30.0, Mean Corpuscular Hemoglobin Concent 32.7, Mean Platelet Volume 10.1, Neutrophils (%) (Auto) 49.8, Lymphocytes (%) (Auto) 42.1, Monocytes (%) (Auto) 6.2, Eosinophils (%) (Auto) 1.5, Basophils (%) (Auto) 0.3, Neutrophils # (Auto) 3.53, Lymphocytes # (Auto) 2.99, Monocytes # (Auto) 0.44, Eosinophils # (Auto) 0.11, Basophils # (Auto) 0.02 06/28/17 20:15 Test 06/28/17 20:15 06/28/17 23:05 White Blood Count 7.10 K/uL (4.8-10.8) Red Blood Count 4.57 M/uL (4.2-5.4) Hemoglobin 13.7 g/dL (12.0-16.0) Hematocrit 41.9 % (37-47) Mean Corpuscular Volume 91.7 fL (80-100) Mean Corpuscular Hemoglobin 30.0 pg (25-34) Mean Corpuscular Hemoglobin Concent 32.7 g/dl (32-36) Platelet Count 443 K/uL (130-400) Mean Platelet Volume 10.1 fL (7.4-10.4) Neutrophils (%) (Auto) 49.8 % Lymphocytes (%) (Auto) 42.1 % Monocytes (%) (Auto) 6.2 % Eosinophils (%) (Auto) 1.5 % Basophils (%) (Auto) 0.3 % Neutrophils # (Auto) 3.53 K/uL (1.4-6.5) Lymphocytes # (Auto) 2.99 K/uL (1.2-3.4) Monocytes # (Auto) 0.44 K/uL (0.11-0.59) Eosinophils # (Auto) 0.11 K/uL (0-0.5) Basophils # (Auto) 0.02 K/uL (0-0.2) RDW Standard Deviation 45.8 fL (36.4-46.3) RDW Coefficient of Variation 13.7 % (11.5-14.5) Immature Granulocyte % (Auto) 0.1 % Immature Granulocyte # (Auto) 0.01 K/uL (0.00-0.02) Anion Gap 6.0 mmol/L (3-11) Est Creatinine Clear Calc Drug Dose 87.1 ml/min Estimated GFR () 90.2 Estimated GFR (Non- 77.8 BUN/Creatinine Ratio 7.6 (10-20) Calcium Level 9.1 mg/dl (8.5-10.1) CSF Color COLORLESS CSF Appearance CLEAR CSF WBC 0 /uL (0-5) CSF RBC 0 /uL (0) CSF Xanthrochromic NO XANTHOCHROMIA CSF Cell Count Tube # 4 CSF Chemistry Tube # 2 CSF Glucose 48 mg/dl (40-70) CSF Total Protein 38.8 mg/dl (15.0-45.0) Laboratory results as stated above per my review. Medications Administered Medications (Trade) Dose Ordered Sig/Radha Route Start Time Stop Time Status Last Admin Dose Admin Sodium Chloride 1,000 ml @ 999 mls/hr Q1H1M ONCE IV 06/28/17 20:30 06/28/17 21:30 DC 06/28/17 20:48 999 MLS/HR Ondansetron HCl (Zofran Inj) 4 mg NOW STAT IV 06/28/17 20:30 06/28/17 20:31 DC 06/28/17 20:48 4 MG Diphenhydramine HCl (Benadryl Inj) 50 mg NOW STAT IV 06/28/17 20:30 06/28/17 20:31 DC 06/28/17 20:48 50 MG Ketorolac Tromethamine (Toradol Inj) 30 mg NOW STAT IV 06/28/17 20:30 06/28/17 20:31 DC 06/28/17 20:48 30 MG Dexamethasone Sodium Phosphate 10 mg/Syringe 2.5 ml @ 1 mls/min ONE ONCE IV 06/28/17 20:30 06/28/17 20:32 DC 06/28/17 20:30 1 MLS/MIN Dihydroergotamine Mesylate (D.H.E. 45 Inj) 1 mg NOW ONCE IV 06/28/17 20:45 06/28/17 20:46 DC 06/28/17 21:03 1 MG Morphine Sulfate (MoRPHine SULFATE INJ) 4 mg NOW STAT IV 06/28/17 22:20 06/28/17 22:21 DC 06/28/17 22:41 4 MG Sodium Chloride 1,000 ml @ 999 mls/hr Q1H1M ONCE IV 06/28/17 22:30 06/28/17 23:30 DC 06/28/17 22:44 999 MLS/HR Ondansetron HCl (Zofran Inj) 4 mg STK-MED ONCE .ROUTE 06/28/17 22:47 06/28/17 22:48 DC 06/28/17 22:47 4 MG Morphine Sulfate (MoRPHine SULFATE INJ) 2 mg NOW STAT IV 06/28/17 23:15 06/28/17 23:16 DC 06/28/17 23:36 2 MG Procedure Lumbar Puncture. Done by Dr. Caba under my direct supervision. Indication: Headache Verbal/written consent was obtained after the risks and benefits were explained , including but not limited to headache, bleeding/clotting, scarring, infection , pain, and bone/joint/nerve damage. At this time, the risks of the procedure are less than the risks of NOT performing the procedure. A time out was taken and the correct patient and site identified. The patient was placed in the seated position and the back was prepped with betadine and draped in the standard fashion. The L3 intervertebral space was identified, anesthetized locally with 1% lidocaine without epinephrine, and the spinal needle was inserted through the skin with the bevel parallel to the dural fibers. The needle was carefully advanced into the lumbar cistern and 4 tubes of clear CSF was obtained (4 cc total). The stylet was replaced and the needle was removed. A bandaid was placed and the patient was placed in the supine position. The patient tolerated the procedure well and there were no complications. ED Course 2019: The patient was evaluated by the resident Dr. Villaseñor. 2030: Ordered Dexamethasone Sodium Phosphate 10 mg/Syringe 2.5 ml @ 1 mls/min IV , Toradol Inj 30 mg IV, Benadryl Inj 50 mg IV, Zofran Inj 4 mg IV, Sodium Chloride 1,000 ml @ 999 mls/hr IV. 2044: Ordered Dihydroergotamine Mesylate 1 mg IV. 2110: Previous medical records were reviewed. The patient was evaluated in room A3. A complete history and physical examination was performed. 6: Ordered Lidocaine HCl 20 ml INFIL. 2220: Ordered Morphine Sulfate 4 mg IV. 2230: Ordered Sodium Chloride 1,000 ml @ 999 mls/hr IV. 2247: Ordered Zofran Inj 4 mg .ROUTE. 2315: Ordered Morphine Sulfate 2 mg IV. 2349: On reevaluation, the patient is feeling better. I discussed the results and findings with the patient. She verbalized agreement of the treatment plan. She was discharged home. Medical Decision Differential includes: Acute intracranial bleed, trauma, meningitis, encephalitis, increased intracranial pressure, mass or mass effect, facial or dental infection, temporal arteritis, CVA, TIA, acute hypertensive emergency, sinusitis, carbon monoxide exposure. This is a 31-year-old female who presents to the ED with a chief complaint of a headache. Further details are listed above. The patient was originally seen by Dr. Caba the resident. His also be evaluated for further information. The patient does have a history of migraines. She was treated with a regimen that was specified for her. This did not include narcotics. The patient states that her headache is different than her normal headache. Because of this blood work was performed which was unremarkable. She also had a CT scan of her brain and a lumbar puncture performed. Lumbar puncture did not show evidence of infection or other acute abnormality. The patient was told the results of the test. She is felt to be stable for discharge. Medication Reconcilliation Current Medication List: was personally reviewed by me Blood Pressure Screening Patient's blood pressure: Elevated blood pressure Blood pressure disposition: Elevated BP felt to be situational Impression Primary Impression: Headache Scribe Attestation The scribe's documentation has been prepared under my direction and personally reviewed by me in its entirety. I confirm that the note above accurately reflects all work, treatment, procedures, and medical decision making performed by me. Departure Information Dispostion Home / Self-Care Referrals Noe Willett MD (PCP) Forms HOME CARE DOCUMENTATION FORM, IMPORTANT VISIT INFORMATION Patient Instructions ED Headache Migraine, My [facility] Additional Instructions Follow-up with your doctor for further care and evaluation in 1-2 days. Return to the emergency department for worsening or new symptoms or any concerns. You have been examined and treated today on an emergency basis only. This is not a substitute for, or an effort to provide, complete comprehensive medical care. It is impossible to recognize and treat all injuries or illnesses in a single emergency department visit. It is therefore important that you follow up closely with your doctor. Call as soon as possible for an appointment.
[2017-06-29 00:15] VITALS: BP 144/93; PULSE 81; O2SAT 100
== END 2017-06-29 00:15 | disposition home or self-care (01) ==
LOC: C.EDB 19:35 → C.EDA 06-29 00:15
DX: G43.109 Migraine with aura, not intractable, without status migrainosus (principal); R03.0 Elevated blood-pressure reading, without diagnosis of hypertension; N73.9 Female pelvic inflammatory disease, unspecified; Z79.3 Long term (current) use of hormonal contraceptives

== ENCOUNTER 2017-06-29 11:35 | Emergency (ER) | payer OTHER ==
[~2017-06-29] VITALS: Ht 162.6 cm; Wt 82.6 kg
[2017-06-29 11:42] VITALS: TEMP 37.1; Ht 162.6 cm; Wt 82.6 kg
[2017-06-29] MEDS ORDERED: DiphenhydrAMINE HCL 50 MG/ML VIAL IV STA (12:10)
[2017-06-29] MEDS ORDERED: SODIUM CHLORIDE 0.9% 1000ML 1,000 ML IV STA (12:10)
[2017-06-29] MEDS ORDERED: KETOROLAC TROMETHAMINE 30 MG/ML VIAL IV STA (12:10)
[2017-06-29] MEDS ORDERED: PROMETHAZINE HCL INJ 25 MG in SODIUM CHLORIDE 0.9% 50ML 50 ML IV STA (12:10)
--- NOTE | 2017-06-29 12:17 | EMERGENCY ROOM VISIT NOTE ---
History Report prepared by Yane: Fabián Gallegos Under the Supervision of: Dr. Tony Richardson M.D. 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 The patient had a lumbar puncture yesterday for a headache and states that she currently has a pulsing headache that is different from her typical migraines. She reports nausea, weakness in her right leg, difficulty walking, and neck stiffness. She states her headache is worse when she stands up. She states lying down relieves her headache. The patient has been seen 3 times this week by the ED for her headaches. She denies any drainage from her back from the LP site, changes in vision, vomiting, loss of bowel or bladder control, fevers, and disturbances from light. Of note, she has been unable to see neurology, and states that her PCP will make a call to get her an appointment. 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 She denies any drainage from her back from the LP site, changes in vision, loss of bowel or bladder control, and disturbances from light. Review of Systems See HPI for pertinent positives & negatives. A total of 10 systems reviewed and were otherwise negative. Past Medical & Surgical Medical Problems: (1) chronic migraine headache disorder (2) Exploratory laparotomy scar (3) Fibromyalgia (4) History of deviated nasal septum (5) History of kidney stones (6) History of ovarian cyst (7) History of small bowel obstruction (8) Major depressive disorder, recurrent, moderate (9) Nausea & vomiting (10) Ovarian cyst (11) PID (pelvic inflammatory disease) (12) Recurrent nephrolithiasis (13) Recurrent sinusitis (14) Restless leg syndrome Surgical Problems: (1) H/O lithotripsy (2) H/O wisdom tooth extraction (3) Hx of tonsillectomy (4) SBO (small bowel obstruction) (5) Ureterostomy status Family History Patient reports no known family medical history. Social History Smoking Status: Never Smoker Alcohol Use: none Drug Use: none Marital Status: single Housing Status: lives alone Occupation Status: [employer] student Current/Historical Medications Scheduled Control Pills ( Control Pills), 1 TAB PO HS Doxycycline (Monohydrate) (Doxycycline), 100 MG PO BID Duloxetine HCl (Cymbalta), 30 MG PO HS Duloxetine Hcl (Cymbalta), 60 MG PO HS Gabapentin (Neurontin), 100 MG PO TID Lamotrigine (Lamictal), 100 MG PO HS Magnesium Oxide (Mag-Ox), 400 MG PO HS Riboflavin (Vitamin B-2), 400 MG PO DAILY Scheduled PRN Acetaminophen (Tylenol), 1,000 MG PO Q6-8HRS PRN for Headache or Pain Clonazepam (Klonopin), 1 MG PO BID PRN for Anxiety Diphenhydramine Hcl (Benadryl), 25-50 MG PO UD PRN for Allergy Symptoms Ondasetron Odt (Zofran Odt), 4 MG SL Q6H PRN for Nausea or Vomiting Polyethylene Glycol 3350 (Miralax), 17 GM PO DAILY PRN for Constipation Allergies Coded Allergies: Metoclopramide (Verified Adverse Reaction, Intermediate, panic attacks, ) Prochlorperazine (Verified Adverse Reaction, Intermediate, panic attack, ) Sulfa Antibiotics (Verified Adverse Reaction, Intermediate, vomiting, 06/29) Ceftriaxone (Verified Adverse Reaction, Mild, CLAIMED FELT SKIN CRAWL; FIRE ANTS, 06/29/17) Physical Exam Vital Signs Date Time Temp Pulse Resp B/P (MAP) Pulse Ox O2 Delivery O2 Flow Rate FiO2 06/29/17 15:29 94 137/81 97 Room Air 06/29/17 13:53 77 16 120/70 06/29/17 12:27 92 158/106 97 Room Air 06/29/17 11:42 37.1 95 18 150/87 96 Room Air Physical Exam GENERAL: Patient is well appearing and in mild distress. HEAD: No acute trauma, normocephalic atraumatic ENT: Mucous membranes moist, no nasal congestion. EYES: Equal/Reactive Bilaterally, No scleral icterus, Normal ROM NECK: No nuchal rigidity, no meningismus, trachea is midline, full ROM LUNGS: No dyspnea. Clear to auscultation and equal bilaterally. No wheeze, no rhonchi. HEART: Regular rate and rhythm. No murmurs, rubs, gallops appreciated. ABDOMEN: Soft, nontender, bowel sounds positive, no masses appreciated, no peritonitis. BACK: She has a small LP puncture site in mid low back consistent with LP. No swelling. No drainage. Tenderness to palpation out of proportion to findings. No midline tenderness, no CVA tenderness EXTREMITIES: She states difficulty with flexing at hip on right. Unclear if due to pain or weakness. Normal motion all extremities, no cyanosis, no edema. NEUROLOGIC: Awake, Alert, Oriented, no acute motor or sensory deficits, no focal weakness, cranial nerves grossly intact. SKIN: No rash, no jaundice, no diaphoresis. Medical Decision & Procedures ER Provider Diagnostic Interpretation: Radiology results and stated below per my review and radiologist interpretation: LUMBAR SPINE COMBINATION HISTORY: Pain. Neuropathy. Complaining right leg weakness/pain s/p LP TECHNIQUE: Multiplanar multisequence MRI of the lumbar spine was performed both before and after the intravenous administration of contrast. COMPARISON: None. FINDINGS: For the purpose of the report the L5-S1 disc space will be located on axial image 28 of 30. Normal signal characteristics of the vertebral bodies as well as intervertebral disc. L1-L2: No significant central canal or neural foraminal narrowing. L2-L3: No significant central canal or neural foraminal narrowing. L3-L4: No significant central canal or neural foraminal narrowing. L4-L5: No significant central canal or neural foraminal narrowing. L5-S1: No significant central canal or neural foraminal narrowing. IMPRESSION: Normal MRI lumbar spine. No abnormal postcontrast enhancement. The above report was generated using voice recognition software. It may contain grammatical, syntax or spelling errors. Electronically signed by: Santana Mccoy M.D. 06/29/2017 3:22 PM Dictated Date/Time: 06/29/2017 3:19 PM Laboratory Results 06/29/17 12:20 Test 06/29/17 12:20 Red Blood Count 4.14 M/uL (4.2-5.4) Mean Corpuscular Volume 91.8 fL (80-100) Mean Corpuscular Hemoglobin 30.0 pg (25-34) Mean Corpuscular Hemoglobin Concent 32.6 g/dl (32-36) RDW Standard Deviation 46.2 fL (36.4-46.3) RDW Coefficient of Variation 13.8 % (11.5-14.5) Mean Platelet Volume 10.0 fL (7.4-10.4) Laboratory results as reviewed by me. Medications Administered Medications (Trade) Dose Ordered Sig/Radha Route Start Time Stop Time Status Last Admin Dose Admin Sodium Chloride 1,000 ml @ 999 mls/hr Q1H1M STAT IV 06/29/17 12:10 06/29/17 13:10 DC 06/29/17 12:22 999 MLS/HR Diphenhydramine HCl (Benadryl Inj) 50 mg NOW STAT IV 06/29/17 12:10 06/29/17 12:14 DC 06/29/17 12:22 50 MG Promethazine HCl 25 mg/Sodium Chloride 51 ml @ 204 mls/hr NOW STAT IV 06/29/17 12:10 06/29/17 12:24 DC 06/29/17 12:26 204 MLS/HR Ketorolac Tromethamine (Toradol Inj) 30 mg NOW STAT IV 06/29/17 12:10 06/29/17 12:15 DC 06/29/17 12:22 30 MG Lorazepam (Ativan Inj) 1 mg NOW STAT IV 06/29/17 13:11 06/29/17 13:12 DC 06/29/17 13:22 1 MG ED Course 1203: The patient was evaluated in room A10. A complete history and physical exam was performed. 1246: The patient is at MRI. 1312: I checked on the patient and she is at MRI. She states that she cannot get the MRI unless she receives Ativan. 1351: The patient was refused the MRI because she will not stay still. 1357: The patient is sitting up in bed and states that her restless leg is bothering her. She wants more Benadryl and Ativan and I told her that that would not be appropriate. She speaks without difficulty. She denies urinary or bowel issues. She would like to try eating something and some IV fluids and see how she feels. 1500: I checked on the patient and she is feeling better. She is on her way to get an MRI. 1537: I checked on the patient and she was sleeping but was easily awoken. She is agreeable to discharge without blood patch given she has back issues. 1545: Reevaluated the patient. Discussed results and discharge instructions: She verbalized understanding and agreement. The patient is ready for discharge. Medical Decision 31 yr old female very well known to department for frequent trips to ED for headaches. Seen yesterday and got LP which was unremarkable. Returns with complaint of headache on sitting up and standing then notes right leg weakness/ pain and low back pain. Exam is benign but she states can't use leg correctly. Tor/Chacho/Phen/IV fluids for pain control. Given symptoms reported and LP I felt compelled no option but to get MRI lumbar spine. Some difficulty as patient not staying still for MRI and received Ativan in MRI to calm her down. Ended up prolonged stay waiting for leg shaking to calm down before MRI. Patient noted on multiple occasions to have been sleeping or sitting up in no distress, clearly able to move legs. WBC normal as is CBC. Recent blood work- up unremarkable. MRI negative for abnormality. Patient may have minor lumbar puncture headache but otherwise looking well and I do not feel the doing blood patch on this patient very perez given already complaining of multiple symptoms that are unable to be found cause, plus fact she is clearly sitting up in no distress. Reviewed reasons for return. Medication Reconcilliation Current Medication List: was personally reviewed by me Blood Pressure Screening Patient's blood pressure: Elevated blood pressure Blood pressure disposition: Elevated BP felt to be situational Impression Primary Impression: chronic migraine headache disorder Additional Impressions: Lumbar back pain Post lumbar puncture headache Scribe Attestation The scribe's documentation has been prepared under my direction and personally reviewed by me in its entirety. I confirm that the note above accurately reflects all work, treatment, procedures, and medical decision making performed by me. Departure Information Dispostion Home / Self-Care Referrals Noe Willett MD (PCP) Patient Instructions My [facility] Additional Instructions It is likely this is mild lumbar puncture headache. Keep well hydrated and rest. You may benefit from Caffeinated beverages as well. Return if fevers, vomiting, passing out, worsening headache, weakness in leg or legs, loss of bowel/bladder control or other concerning symptoms. Please follow up with your neurologist. Problem Qualifiers
[2017-06-29 12:32] LABS: HEMOGLOBIN 12.4 g/dL (12.0-16.0); MEAN CELL VOLUME 91.8 fL (80-100); MEAN CORPUSCULAR HGB CONC 32.6 g/dl (32-36); PLATELET COUNT 432 K/uL (130-400); RED CELL DISTRIBUTION WIDTH CV 13.8 % (11.5-14.5); RED CELL DISTRIBUTION WIDTH SD 46.2 fL (36.4-46.3); WHITE BLOOD COUNT 10.07 K/uL (4.8-10.8)
[2017-06-29] MEDS ORDERED: LORAZEPAM 2 MG/ML 1 ML VIAL IV STA (13:11)
--- NOTE | 2017-06-29 15:24 | DIAGNOSTIC IMAGING REPORT ---
LUMBAR SPINE COMBINATION HISTORY: Pain. Neuropathy. Complaining right leg weakness/pain s/p LP TECHNIQUE: Multiplanar multisequence MRI of the lumbar spine was performed both before and after the intravenous administration of contrast. COMPARISON: None. FINDINGS: For the purpose of the report the L5-S1 disc space will be located on axial image 28 of 30. Normal signal characteristics of the vertebral bodies as well as intervertebral disc. L1-L2: No significant central canal or neural foraminal narrowing. L2-L3: No significant central canal or neural foraminal narrowing. L3-L4: No significant central canal or neural foraminal narrowing. L4-L5: No significant central canal or neural foraminal narrowing. L5-S1: No significant central canal or neural foraminal narrowing. IMPRESSION: Normal MRI lumbar spine. No abnormal postcontrast enhancement. The above report was generated using voice recognition software. It may contain grammatical, syntax or spelling errors. Electronically signed by: Santana Mccoy M.D. 06/29/2017 3:22 PM Dictated Date/Time: 06/29/2017 3:19 PM
[2017-06-29 15:29] VITALS: BP 137/81; PULSE 94; O2SAT 97
[2017-07-03] MEDS ORDERED: ONDA4TAB10 SL (10:26)
[2017-07-03] MEDS ORDERED: ACET-1256 PO (16:04)
[2017-07-03] MEDS ORDERED: DIPH25CA5 PO (16:33)
[2017-07-03] MEDS ORDERED: MAGN400T6 PO (18:20)
[2017-07-03] MEDS ORDERED: GABA-112 PO (18:20)
[2017-07-03] MEDS ORDERED: VITB2100 PO (18:20)
== END 2017-06-29 15:58 | disposition home or self-care (01) ==
LOC: C.EDB 11:37 → C.EDA 15:58
DX: G43.709 Chronic migraine without aura, not intractable, without status migrainosus (principal); G97.1 Other reaction to spinal and lumbar puncture; M54.5 Low back pain; R03.0 Elevated blood-pressure reading, without diagnosis of hypertension; F33.9 Major depressive disorder, recurrent, unspecified; Z79.3 Long term (current) use of hormonal contraceptives; Z88.8 Allergy status to other drugs, medicaments and biological substances; Z88.2 Allergy status to sulfonamides; Z88.1 Allergy status to other antibiotic agents

== ENCOUNTER 2017-07-03 20:12 | Emergency (ER) | payer OTHER ==
[~2017-07-03] VITALS: Ht 162.6 cm; Wt 82.6 kg
[~2017-07-03 20:12] MED LIST changes: -ASPI-390 PO; -BCPILLS PO; -CLON1TAB3 PO; -DULO60CA44 PO; -IBUP-1050 PO; -LAMO100T16 PO; -POLY335019 PO
[2017-07-03 20:25] VITALS: TEMP 37.1; Ht 162.6 cm; Wt 82.6 kg
[2017-07-03] MEDS ORDERED: DEXAMETHASONE SOD INJ 4 MG/ML VIAL IV STA (20:39)
[2017-07-03] MEDS ORDERED: SODIUM CHLORIDE 0.9% 1000ML 1,000 ML IV STA ×2 (20:39)
[2017-07-03] MEDS ORDERED: DiphenhydrAMINE HCL 50 MG/ML VIAL IV STA (20:39)
[2017-07-03] MEDS ORDERED: ONDANSETRON 8 MG/54 ML D5W IV STA (20:39)
[2017-07-03] MEDS ORDERED: ONDANSETRON INJ 8 MG in DEXTROSE 5% 50ML 50 ML IV SCH (20:41)
[2017-07-03] MEDS ORDERED: DIHYDROERGOTAMINE MESYLATE 1 MG/ML VIAL IV ONE (20:45)
[2017-07-03] MEDS ORDERED: DEXAMETHASONE **PF** INJ 10 MG/ML VIAL ONE (20:51)
[2017-07-03] MEDS ORDERED: CYM/30 PO (21:26)
[2017-07-03] MEDS ORDERED: DOXY-300 PO (21:30)
--- NOTE | 2017-07-03 21:33 | EMERGENCY ROOM VISIT NOTE ---
History Report prepared by Yane: Juana Ocampo Under the Supervision of: Dr. Joselito Palmer M.D. First contact with patient: 20:30 Chief Complaint: HEADACHE Stated Complaint: MIGRAINE LASTING 5 DAYS History of Present Illness The patient is a 31 year old female who presents to the Emergency Room with complaints of persistent headache starting 1 week ago. The patient has a history of migraines. She saw her PCP today and scheduled a neurology appointment for the end of the week. The headache is on the right side of her head around her eye. She describes it as a pressure. It is consistent with her previous migraines. She has been taking her gabapentin and Tylenol to no significant relief. She reports nausea, vomiting, vision changes, and light sensitivity with her headache. She has been feeling clammy and sweaty. She denies any numbness, weakness, fever, abdominal pain, chest pain, or SOB. She denies any chance of . She recently had an LP which was negative. She also had an MRI of her back which was unremarkable. She notes that she is not supposed to take NSAIDs this week as she is scheduled for surgery for deviated septum next week. Source of History: patient Onset: 1 week ago Position: head Quality: pressure Timing: other (persistent) Associated Symptoms: + diaphoresis, + nausea, + vomiting, No fevers, No chest pain, No SOB, No abdominal pain, No weakness, No numbness Note: Pt reports vision changes, light sensitivity. Review of Systems See HPI for pertinent positives & negatives. A total of 10 systems reviewed and were otherwise negative. Past Medical & Surgical Medical Problems: (1) chronic migraine headache disorder (2) Exploratory laparotomy scar (3) Fibromyalgia (4) History of deviated nasal septum (5) History of kidney stones (6) History of ovarian cyst (7) History of small bowel obstruction (8) Major depressive disorder, recurrent, moderate (9) Nausea & vomiting (10) Ovarian cyst (11) PID (pelvic inflammatory disease) (12) Recurrent nephrolithiasis (13) Recurrent sinusitis (14) Restless leg syndrome Surgical Problems: (1) H/O lithotripsy (2) H/O wisdom tooth extraction (3) Hx of tonsillectomy (4) SBO (small bowel obstruction) (5) Ureterostomy status Old medical records were reviewed. Nurse's notes were reviewed and I agree with. Family History Patient reports no known family medical history. 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 Current/Historical Medications Scheduled Control Pills ( Control Pills), 1 TAB PO HS Doxycycline (Monohydrate) (Doxycycline), 100 MG PO BID Duloxetine HCl (Cymbalta), 30 MG PO HS Duloxetine Hcl (Cymbalta), 60 MG PO HS Gabapentin (Neurontin), 100 MG PO TID Lamotrigine (Lamictal), 100 MG PO HS Magnesium Oxide (Mag-Ox), 400 MG PO HS Riboflavin (Vitamin B-2), 400 MG PO DAILY Scheduled PRN Acetaminophen (Tylenol), 1,000 MG PO Q6-8HRS PRN for Headache or Pain Clonazepam (Klonopin), 1 MG PO BID PRN for Anxiety Diphenhydramine Hcl (Benadryl), 25-50 MG PO UD PRN for Allergy Symptoms Ondasetron Odt (Zofran Odt), 4 MG SL Q6H PRN for Nausea or Vomiting Polyethylene Glycol 3350 (Miralax), 17 GM PO DAILY PRN for Constipation Allergies Coded Allergies: Metoclopramide (Verified Adverse Reaction, Intermediate, panic attacks, ) Prochlorperazine (Verified Adverse Reaction, Intermediate, panic attack, ) Sulfa Antibiotics (Verified Adverse Reaction, Intermediate, vomiting, 06/29) Ceftriaxone (Verified Adverse Reaction, Mild, CLAIMED FELT SKIN CRAWL; FIRE ANTS, 06/29/17) Physical Exam Vital Signs Date Time Temp Pulse Resp B/P (MAP) Pulse Ox O2 Delivery O2 Flow Rate FiO2 07/03/17 22:46 76 16 127/83 97 Room Air 07/03/17 20:25 37.1 90 18 156/100 98 Room Air Physical Exam General: Non-ill appearing young female in no acute distress. HEENT: Normal cephalic atraumatic. Pupils are equal round and reactive to light. Extraocular movements are intact. Oropharynx is pink with moist mucous membranes. No swelling of the mouth lips or tongue. Neck: Supple with a midline trachea. No meningeal signs or stiffness, no JVD or bruits. No Stridor. Chest: Clear to auscultation bilaterally. No wheezes or rhonchi. No increased work of breathing. Heart: regular rate and rhythm. Abdomen: Soft nontender, nondistended without rebound guarding or rigidity. Extremities: No cyanosis clubbing or edema. No calf tenderness or assymetry Spine/Back. Non tender to palpation. No CVA tenderness Skin: Good turgor without rashes. Neurologic exam: Cranial nerves two through 12 are intact. Motor and sensation are intact and symmetrical throughout. Medical Decision & Procedures Medications Administered Medications (Trade) Dose Ordered Sig/Radha Route Start Time Stop Time Status Last Admin Dose Admin Sodium Chloride 1,000 ml @ 999 mls/hr Q1H1M STAT IV 07/03/17 20:39 07/03/17 21:39 DC 07/03/17 20:59 999 MLS/HR Sodium Chloride 1,000 ml @ 999 mls/hr Q1H1M STAT IV 07/03/17 20:39 07/03/17 21:39 DC 07/03/17 20:59 999 MLS/HR Diphenhydramine HCl (Benadryl Inj) 50 mg NOW STAT IV 07/03/17 20:39 07/03/17 20:41 DC 07/03/17 20:59 50 MG Dihydroergotamine Mesylate (D.H.E. 45 Inj) 1 mg NOW ONCE IV 07/03/17 20:45 07/03/17 20:47 DC 07/03/17 21:37 1 MG Dexamethasone Sodium Phosphate (Dexamethasone Inj Pf) 10 mg STK-MED ONCE .ROUTE 07/03/17 20:51 07/03/17 20:52 DC 07/03/17 20:59 10 MG Ondansetron HCl 8 mg/Dextrose 54 ml @ 216 mls/hr TODAY@2040 IV 07/03/17 20:41 07/03/17 21:15 DC 07/03/17 21:12 216 MLS/HR Lorazepam (Ativan Inj) 1 mg NOW STAT IV 07/03/17 21:57 07/03/17 21:58 DC 07/03/17 22:14 1 MG ED Course 2031: Past medical records reviewed. The patient was evaluated in room A12B, and a complete history and physical examination were performed. 2038: Benadryl Inj 50 mg IV, Decadron Inj 10 mg IV, NSS 1000 ml @ 999 mls/hr IV , NSS 1000 ml @ 999 mls/hr IV. 2040: Ondansetron HCl 8 mg/Dextrose 54 ml @ 216 mls/hr IV. 2044: DHE 45 Inj 1 mg IV. 2099: I spoke with the pharmacist about DHE administration. 2101: I reevaluated the patient. She is resting comfortably. 2135: I was present during the administration of DHE IV. Patient tolerated it well. 2154: I reevaluated the patient. She is still complaining of a headache. 2156: Ativan Inj 1 mg IV. Medical Decision Differentials include, but are not limited to; migraine, post spinal headache, tension headache. This patient comes in as described above. She is on a headache that is consistent with her chronic migraines. She has a normal neurologic exam. She had a recent spinal tap that was unremarkable. She is also on multiple neuro imaging. She has nothing to suggest meningitis or encephalitis or infection. IV access was established and she was hydrated 1 L IV normal saline bolus. She was given her typical cocktail of medications which include Zofran 8 mg IV, Benadryl 50 mgs IV, Decadron 10 mg IV, DHE 1 mg IV. She has received DHE IV before and tolerated it without any difficulties and says it works better than the IM version which makes her sore in her arm. She was still having a headache and was given Ativan 1 mg IV. She was starting to feel better and will be discharged home. I encouraged her to keep her appointment with her neurologist on Sunday and drink plenty of fluids return if: Worsening symptoms, fever chills, headaches have been typical, any new problems or concerns. She is not driving and will be discharged home. Medication Reconcilliation Current Medication List: was personally reviewed by me Blood Pressure Screening Patient's blood pressure: Elevated blood pressure Blood pressure disposition: Elevated BP felt to be situational Impression Primary Impression: Migraine Scribe Attestation The scribe's documentation has been prepared under my direction and personally reviewed by me in its entirety. I confirm that the note above accurately reflects all work, treatment, procedures, and medical decision making performed by me. Departure Information Dispostion Home / Self-Care Referrals Noe Willett MD (PCP) Forms HOME CARE DOCUMENTATION FORM, IMPORTANT VISIT INFORMATION Patient Instructions My [facility] Additional Instructions Rest. Drink plenty of fluids. Return if: Worsening symptoms, increasing pain, numbness or weakness, fever or chills, headaches different than typical, any new problems or concerns. Keep your appointment with your neurologist on Sunday
[2017-07-03] MEDS ORDERED: LORAZEPAM 2 MG/ML 1 ML VIAL IV STA (21:57)
[2017-07-03] MEDS ORDERED: BCPILLS PO (22:02)
[2017-07-03] MEDS ORDERED: DULO60CA44 PO (22:07)
[2017-07-03] MEDS ORDERED: POLY335019 PO (22:07)
[2017-07-03 22:46] VITALS: BP 127/83; PULSE 76; O2SAT 97
[2017-07-03] MEDS ORDERED: CLON1TAB3 PO (22:56)
[2017-07-03] MEDS ORDERED: LAMO100T16 PO (22:56)
== END 2017-07-03 23:16 | disposition home or self-care (01) ==
LOC: C.EDB 20:13 → C.EDA 23:16
DX: G43.909 Migraine, unspecified, not intractable, without status migrainosus (principal); J34.2 Deviated nasal septum; M79.7 Fibromyalgia; F32.9 Major depressive disorder, single episode, unspecified; N83.209 Unspecified ovarian cyst, unspecified side; G25.81 Restless legs syndrome; Z87.442 Personal history of urinary calculi; Z93.6 Other artificial openings of urinary tract status; Z87.891 Personal history of nicotine dependence; Z79.3 Long term (current) use of hormonal contraceptives; Z88.8 Allergy status to other drugs, medicaments and biological substances; Z88.1 Allergy status to other antibiotic agents; Z88.2 Allergy status to sulfonamides

== ENCOUNTER 2017-07-09 15:04 | Emergency (ER) | payer OTHER ==
[~2017-07-09] VITALS: Ht 162.6 cm; Wt 81.5 kg
[~2017-07-09 15:04] MED LIST changes: -ACET-1256 PO; +BCPILLS PO; +CLON1TAB3 PO; +CYM/30 PO; -DIPH25CA5 PO; +LAMO100T16 PO; +POLY335019 PO
[2017-07-09 15:22] VITALS: TEMP 37.1; Ht 162.6 cm; Wt 81.5 kg
[2017-07-09] MEDS ORDERED: MAGNESIUM SULFATE 1GM / D5W 1 GM BAG IV STA (15:35)
[2017-07-09] MEDS ORDERED: DiphenhydrAMINE HCL 50 MG/ML VIAL IV STA (15:35)
[2017-07-09] MEDS ORDERED: SODIUM CHLORIDE 0.9% 1000ML 1,000 ML IV STA (15:35)
[2017-07-09] MEDS ORDERED: DEXAMETHASONE SOD INJ 4 MG/ML VIAL IV STA (15:35)
[2017-07-09] MEDS ORDERED: PROCHLORPERAZINE 5 MG/ML 2 ML VIAL IV STA (15:35)
--- NOTE | 2017-07-09 15:55 | EMERGENCY ROOM VISIT NOTE ---
History Report prepared by Yane: Juana Ocampo Under the Supervision of: Dr. Stevo Bustillo M.D. First contact with patient: 15:26 Chief Complaint: HEADACHE Stated Complaint: MIGRAINE, VOMITING, VERTIGO, LIGHTHEADED History of Present Illness The patient is a 31 year old white female with a past medical history of fibromyalgia, ovarian cysts, kidney stone, depression, migraine who presents to the ED with a cc of constant headache beginning 2 days ago. She states this is the worse migraine of her life. She reports the pain is unbearable in the right side of her face. She has taken Tylenol, gabapentin, Zofran to no significant relief. Cold air slightly relieved her pain. Positive neck pain, nausea, vomiting, diarrhea, vertigo. She is on a 3 month cycle control. She is not sexually active. She notes that she cannot take NSAIDs because she has surgery in 4 days. Source of History: patient Onset: 2 days ago Position: head Symptom Intensity: unbearable Quality: other (migraine) Timing: constant Modifying Factors (Relieving): other (cold air) Associated Symptoms: + neck pain, + nausea, + vomiting, + diarrhea Note: Pt reports vertigo. Review of Systems See HPI for pertinent positives and negatives. A total of ten systems were reviewed and were otherwise negative. Past Medical & Surgical Medical Problems: (1) chronic migraine headache disorder (2) Exploratory laparotomy scar (3) Fibromyalgia (4) History of deviated nasal septum (5) History of kidney stones (6) History of ovarian cyst (7) History of small bowel obstruction (8) Major depressive disorder, recurrent, moderate (9) Nausea & vomiting (10) Ovarian cyst (11) PID (pelvic inflammatory disease) (12) Recurrent nephrolithiasis (13) Recurrent sinusitis (14) Restless leg syndrome Surgical Problems: (1) H/O lithotripsy (2) H/O wisdom tooth extraction (3) Hx of tonsillectomy (4) SBO (small bowel obstruction) (5) Ureterostomy status Family History Patient reports no known family medical history. 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 Current/Historical Medications Scheduled Control Pills ( Control Pills), 1 TAB PO HS Duloxetine HCl (Cymbalta), 90 MG PO HS Gabapentin (Neurontin), 100 MG PO TID Lamotrigine (Lamictal), 100 MG PO HS Magnesium Oxide (Mag-Ox), 400 MG PO HS Riboflavin (Vitamin B-2), 400 MG PO DAILY Scheduled PRN Clonazepam (Klonopin), 2 MG PO BID PRN for Anxiety Ondasetron Odt (Zofran Odt), 4 MG SL Q6H PRN for Nausea or Vomiting Polyethylene Glycol 3350 (Miralax), 17 GM PO DAILY PRN for Constipation Allergies Coded Allergies: Ceftriaxone (Verified Allergy, Unknown, RASH ALL OVER BODY, 07/04/17) Ciprofloxacin (Verified Allergy, Unknown, ITCHING, FEVER, 07/04/17) Metoclopramide (Verified Adverse Reaction, Intermediate, panic attacks, ) Prochlorperazine (Verified Adverse Reaction, Intermediate, panic attack, ) Sulfa Antibiotics (Verified Adverse Reaction, Intermediate, vomiting, 07/04) Physical Exam Vital Signs Date Time Temp Pulse Resp B/P (MAP) Pulse Ox O2 Delivery O2 Flow Rate FiO2 07/09/17 16:59 68 16 136/98 99 Room Air 07/09/17 15:22 37.1 98 16 151/93 99 Room Air Physical Exam GENERAL: Awake, alert, well-appearing, NAD HENT: Normocephalic, atraumatic. EYES: Normal conjunctiva. Sclera non-icteric. No photophobia. 6 mm but PERRL. NECK: Supple. No nuchal rigidity. FROM. No signs of meningismus. RESPIRATORY: CTAB, no rhonchi, wheezing, crackles CARDIAC: RRR, no MRG ABDOMEN: Soft, NTND, BS+ MSK: No chest wall TTP, no LE edema NEURO: CN 2-12 intact, 5/5 upper and lower extremity strength, no dysmetria, no drift, good finger to nose, no sensory deficits. Finger count grossly normal. SKIN: No rash or jaundice noted. Medical Decision & Procedures Laboratory Results Test 07/09/17 15:51 Urine Test NEG (NEG) Laboratory results reviewed by me Medications Administered Medications (Trade) Dose Ordered Sig/Radha Route Start Time Stop Time Status Last Admin Dose Admin Prochlorperazine Edisylate (Compazine Inj) 10 mg NOW STAT IV 07/09/17 15:35 07/09/17 15:38 DC 07/09/17 16:07 10 MG Sodium Chloride 1,000 ml @ 999 mls/hr Q1H1M STAT IV 07/09/17 15:35 07/09/17 16:35 DC 07/09/17 16:07 999 MLS/HR Dexamethasone Sodium Phosphate (Decadron Inj) 10 mg NOW STAT IV 07/09/17 15:35 07/09/17 15:38 DC 07/09/17 16:07 10 MG Diphenhydramine HCl (Benadryl Inj) 50 mg NOW STAT IV 07/09/17 15:35 07/09/17 15:38 DC 07/09/17 16:07 50 MG Magnesium Sulfate (Magnesium Sulfate) 1 gm NOW STAT IV 07/09/17 15:35 07/09/17 15:38 DC 07/09/17 16:07 1 GM Dihydroergotamine Mesylate (D.H.E. 45 Inj) 1 mg NOW ONCE IM 07/09/17 17:30 07/09/17 17:31 DC 07/09/17 17:53 1 MG Quetiapine Fumarate (seroQUEL TAB) 50 mg ONE STAT PO 07/09/17 17:17 07/09/17 17:24 DC 07/09/17 17:53 50 MG ED Course 1529: The patient was evaluated in room B12B. A complete history and physical exam was performed. 1655: I reevaluated the patient. She was asleep. 3: I reevaluated the patient. Discussed results and discharge instructions: She verbalized understanding and agreement. The patient is ready for discharge. Medical Decision Nursing notes reviewed. Ancillary studies and prior records reviewed. The patient is a 31 year old white female with a past medical history of fibromyalgia, ovarian cysts, kidney stone, depression, migraine who presents to the ED with a cc of constant headache beginning 2 days ago. Etiologies such as migraine, tumor, headache, sinus thrombosis, temporal arteritis, sinusitis, CVA, ICH, SAH, infection, as well as others were entertained. Patient was seen and evaluated at the bedside. Patient does have a prior history of chronic migraines. Patient states she has had an acute exacerbation of her migraine type headache which is right-sided been ongoing since Sunday. Patient does have some associated nausea and vomiting. She denies any sexual activity. Patient did state that she might have fainted a couple days ago. Patient has not been able to keep anything down. On exam the patient has a nonfocal neurologic exam. Patient has no signs of meningismus. Given the chronic nature of her headaches and the fact that she sees neurology I do not believe that she requires any further imaging at this time. Patient did have a urine test completed and was given medications for symptom control. Patient's UPT was negative. Patient was feeling improved and was sleeping at the bedside initially upon reassessment. Patient did complain of some mild twitching. Patient was given a second round of medications. Patient was feeling improved. Patient was deemed suitable for outpatient follow -up and treatment at this time. Patient was given strict follow-up, discharge, and return precautions. All questions were answered. Patient was deemed suitable for outpatient follow-up at this time. Patient agreed with the plan of care and was safely discharged home. Medication Reconcilliation Current Medication List: was personally reviewed by me Blood Pressure Screening Patient's blood pressure: Elevated blood pressure Blood pressure disposition: Referred to PCP Impression Primary Impression: Migraine Scribe Attestation The scribe's documentation has been prepared under my direction and personally reviewed by me in its entirety. I confirm that the note above accurately reflects all work, treatment, procedures, and medical decision making performed by me. Departure Information Dispostion Home / Self-Care Referrals Noe Willett MD (PCP) Patient Instructions ED Headache Migraine, My [facility] Additional Instructions Please return to the emergency department if you have worsening or recurrent symptoms not amenable to at-home treatment. Please call for a follow-up appointment with her primary care physician. Please take your medications as prescribed. If you have other concerns and/or complaints please feel free to also call your primary care physician's office or return the ED for further evaluation, management, and treatment. You were found to have an elevated blood pressure today (>120 sytolic or >90 diastolic). Per medicare guidelines, you need to follow up with this blood pressure screening with your Primary Care Physician (PCP). For a new PCP call [phone]. You may take tylenol 1000 mg every 6 hours as needed for pain. You may take motrin and tylenol separately or at the same time. Take your medications as prescribed. You have been examined and treated today on an emergency basis only. This is not a substitute for, or an effort to provide, complete comprehensive medical care. It is impossible to recognize and treat all injuries or illnesses in a single emergency department visit. It is therefore important that you follow up closely with [facility], your PCP, and/or your specialist(s). Call as soon as possible for an appointment. Thank you for your time and consideration. I look forward to speaking with you again soon. Please don't hesitate to call us if you have any questions. Problem Qualifiers Primary Impression: Migraine Migraine type: unspecified Status migrainosus presence: without status migrainosus Intractability: not intractable Qualified Codes: G43.909 - Migraine, unspecified, not intractable, without status migrainosus
[2017-07-09] MEDS ORDERED: QUETIAPINE FUMARATE 25 MG TAB PO STA (17:17)
[2017-07-09] MEDS ORDERED: DIHYDROERGOTAMINE MESYLATE 1 MG/ML VIAL IM ONE (17:30)
[2017-07-09 19:10] VITALS: BP 132/76; PULSE 75; O2SAT 98
== END 2017-07-09 19:10 | disposition home or self-care (01) ==
LOC: C.EDB 15:05
DX: G43.701 Chronic migraine without aura, not intractable, with status migrainosus (principal); R25.3 Fasciculation; M79.7 Fibromyalgia; F32.9 Major depressive disorder, single episode, unspecified; Z79.3 Long term (current) use of hormonal contraceptives; Z88.1 Allergy status to other antibiotic agents; Z88.8 Allergy status to other drugs, medicaments and biological substances; Z88.2 Allergy status to sulfonamides

== ENCOUNTER → 2017-07-10 | Outpatient (CLI) | payer OTHER ==
[~2017-07-10] MED LIST changes: +HYDR-5688 PO
[2017-07-10 14:43] LABS: BASO % 0.1 %; BASO ABS # 0.01 K/uL (0-0.2); HEMATOCRIT 38.1 % (37-47); HEMOGLOBIN 12.1 g/dL (12.0-16.0); IG# 0.06 K/uL (0.00-0.02); LYMPH % 18.6 %; MEAN CELL VOLUME 93.4 fL (80-100); MEAN CORPUSCULAR HEMOGLOBIN 29.7 pg (25-34); MEAN CORPUSCULAR HGB CONC 31.8 g/dl (32-36); MEAN PLATELET VOLUME 10.5 fL (7.4-10.4); MONO % 7.9 %; MONO ABS # 1.37 K/uL (0.11-0.59); NEUT % 73.1 %; PLATELET COUNT 437 K/uL (130-400); RED CELL DISTRIBUTION WIDTH CV 14.3 % (11.5-14.5); RED CELL DISTRIBUTION WIDTH SD 48.6 fL (36.4-46.3); WHITE BLOOD COUNT 17.24 K/uL (4.8-10.8)
[2017-07-10 14:52] LABS: INR 0.9 (0.9-1.1); PTT PATIENT 24.4 SECONDS (21.0-31.0)
[2017-07-10 15:05] LABS: POTASSIUM 3.6 mmol/L (3.5-5.1)
== END | disposition home or self-care (01) ==
LOC: C.LAB 13:14
DX: Z01.818 Encounter for other preprocedural examination (principal)

== ENCOUNTER → 2017-07-13 | Day surgery (SDC) | payer OTHER ==
[2017-07-04 11:14] VITALS: Ht 162.6 cm; Wt 84.1 kg
[~2017-07-13] VITALS: Ht 162.6 cm; Wt 84.1 kg
[~2017-07-13] MED LIST changes: +ATROPINE SULFATE 0.1 MG/ML 5ML SYR IV PRN; +CLINDAMYCIN PHOS 150 MG/ML 2 ML VIAL IV SCH; +DEXAMETHASONE SOD INJ 4 MG/ML VIAL ONE; +DiphenhydrAMINE HCL 50 MG/ML VIAL ONE; +EpHEDrine SULFATE INJ 50 MG/ML AMP IV PRN; +EpINEphrine INJ 1MG/ML AMP 1 MG/ML AMP ONE; +FENTANYL CITRATE INJ 50 MCG/1 ML 2 ML VIAL ONE; -HYDR-5688 PO; +HYDROCODONE/ACETAMIN 5/325MG TAB PO PRN; +HydrALAZINE HCL 20 MG/ML VIAL IV. STA; +HydrALAZINE HCL 20 MG/ML VIAL ONE; +LACTATED RINGER'S 1000ML 1,000 ML IV SCH; +LIDOCAINE 4% MPF SOAK 5 ML = 1 DOSE TOP ONE; +LIDOCAINE HCL 2% 2 ML VIAL (20MG/ML) ONE; +LIDOCAINE/EPINEPHRINE 1% 20 ML VIAL ONE; +MIDAZOLAM HCL 1 MG/ML 2ML VIAL ONE; +NURSING VERBAL MED ORDER ONE; +ONDANSETRON INJ 2 MG/ML 2 ML VIAL IV PRN; +ONDANSETRON INJ 2 MG/ML 2 ML VIAL ONE; +OXYMETAZOLINE HCL 0.05% NA SPR 15 ML BTL NAE SCH; +OXYMETAZOLINE HCL 0.05% NA SPR 15 ML BTL PRN; +PROPOFOL IV EMULSION 10 MG/ML 20 ML VIAL IV ONE; +ROCURONIUM BROMIDE 10 MG/ML 5 ML VIAL IV ONE
--- NOTE | 2017-07-13 12:00 | History & Physical Bridge - SC ---
H&P Re-Evaluation Bridge Note: I have examined the patient, reviewed the History & Physical and in the interval since the performance of the History & Physical I have noted the following changes of clinical significance: No changes noted
--- NOTE | 2017-07-13 13:05 | [facility] Operative Report ---
Operative Report Operative Date Jul 13, 2017. Pre-Operative Diagnosis Nasal Septal Deviation, Bilateral Inferior Turbinate Hypertrophy Post-Operative Diagnosis Same Procedure(s) Performed Revision Septoplasty, Bilateral Inferior Turbinate Reduction, Left Cherrie Bullosa Resection Surgeon Dr. Gloria Geosciences Professor Surgeon(s) None Estimated Blood Loss 10ml Findings 1. L CHERRIE BULLOSA 2. MILD R DNS 3. B ITH Specimens None Anesthesia Type General I attest to the content of the Intraoperative Record and any orders documented therein. Any exceptions are noted below.
--- NOTE | 2017-07-13 13:08 | Discharge Instructions ---
Discharge Instructions Date of Service Jul 13, 2017. Admission Reason for Admission: Nasal Septal Deviation Discharge Discharge Diagnosis / Problem: SAME Discharge Goals Goal(s): Therapeutic intervention Activity Recommendations Activity Limitations: as noted below LIGHT ACTIVITY AND NO NOSE BLOWING FOR 2 WEEKS; NO DRIVING WHILE ON NORCO . Current Hospital Diet Patient's current hospital diet: Discharge Diet Recommended Diet: Regular Diet Procedures Procedures Performed: Revision Septoplasty, Bilateral Inferior Turbinate Reduction, Left Vaishali Bullosa Resection Pending Studies Studies pending at discharge: no Medical Emergencies . Who to Call and When: Medical Emergencies: If at any time you feel your situation is an emergency, please call 911 immediately. . Non-Emergent Contact Non-Emergency issues call your: Surgeon . . "Provider Documentation" section prepared by Alexander Gloria. .
[2017-07-13] MEDS: FENTANYL CITRATE INJ 50 MCG/1 ML 2 ML VIAL IV PRN ×4 (13:35→14:07)
--- NOTE | 2017-07-13 13:57 | OPERATIVE REPORT ---
DATE OF OPERATION: 07/13/2017 PREOPERATIVE DIAGNOSES: 1. Left christopher bullosa. 2. Right. 3. Septal deviation. 4. Bilateral inferior turbinate hypertrophy. POSTOPERATIVE DIAGNOSES: 1. Left christopher bullosa. 2. Right. 3. Septal deviation. 4. Bilateral inferior turbinate hypertrophy. PROCEDURES: 1. Revision septoplasty. 2. Endoscopic left christopher bullosa resection. 3. Bilateral inferior turbinate outfracture and turbinoplasty. SURGEON: Dr Gloria. ANESTHESIA: General endotracheal. ESTIMATED BLOOD LOSS: 10 mL. FINDINGS: 1. Left christopher bullosa. 2. Mild right septal deviation. 3. Bilateral inferior turbinate hypertrophy. SPECIMENS: None. COMPLICATIONS: None. INDICATIONS FOR THE PROCEDURE: The patient is a 31-year-old female who underwent previous septoplasty by another community mental health worker in the past. She has continued to have problems with right greater than left nasal airway obstruction despite maximal medical therapy including allergy nasal steroid sprays, nasal antihistamine sprays and oral antihistamines. She was found on a CT scan to have a left christopher bullosa, mild to moderate right septal deviation, and bilateral inferior turbinate hypertrophy. She presents for the above-mentioned procedures on an outpatient elective basis. DESCRIPTION OF PROCEDURE: After informed consent had been obtained from the patient, the patient was wheeled to the operating room and placed on the operating table in the supine position. Monitors were placed after induction of general endotracheal anesthesia, patient was prepped in the usual fashion for endoscopic sinus surgery. Lidocaine and epinephrine pledgets were placed in the bilateral nasal cavities and pressure applied. The pledgets were removed. A 0 degree endoscope was used to inspect the left middle turbinate. This was injected with 1% lidocaine with 1:100,000 epinephrine. A sickle knife was then used to incise the left middle turbinate longitudinally and the lateral half of the middle turbinate was removed using straight Zeke-Cut forceps to perform an endoscopic christopher bullosa resection. The nasal septum was then injected with 1% lidocaine with 1:100,000 epinephrine. Lidocaine and epinephrine pledgets were placed in the bilateral nasal cavities and pressure applied. The pledgets were removed. A #15 scalpel was used to make a left para-Reuben incision through which the left-sided mucoperichondrial and mucoperiosteal flap was elevated. A #15 scalpel was then used to incise the quadrangular cartilage with care to preserve a 1.5 cm dorsal and caudal strut and the right sided mucoperichondrial and mucoperiosteal flap was elevated through this cartilaginous incision. A Sim swivel knife was used to remove the deviated portions of quadrangular cartilage. A V-shaped osteotome, mallet, and Antonio forceps were then used to remove the bony septal spur impinging on the airway posteriorly to the right hand side. [place]-Orr forceps was then used to remove further septal bone which was impinging on the airway posterior superiorly. The septum was in midline. The septal cavity was suctioned. The left para-Reuben incision was closed with several simple interrupted 4-0 chromic sutures. A 4-0 plain gut suture on a Rocky needle was then used to perform a quilting stitch of the mucoperichondrial and mucoperiosteal flaps bilaterally to help prevent septal hematoma. A Boss elevator was then used to infracture and subsequently outfracture the inferior turbinates bilaterally. These were injected with 1% lidocaine with 1:100,000 epinephrine. A 2.0 mm turbinate by using powered instrumentation was then used to perform bilateral inferior turbinoplasties in the submucosal fashion. The nasal cavities and nasopharynx were then suctioned. An orogastric tube was placed and the stomach was suctioned free of any stomach contents. This marked the end of the case. The patient tolerated the procedure well with no apparent complications. All the instrumentation was removed from the patient. The patient was extubated and transferred to recovery room in stable condition. I attest to the content of the Intraoperative Record and any orders documented therein. Any exception s are noted below.
[2017-07-13 14:32] VITALS: TEMP 37
[2017-07-13 15:00] VITALS: BP 158/94; PULSE 100; O2SAT 96
--- NOTE | 2017-07-13 15:19 | Anesthesia Progress Nt - [facility] ---
Anesthesia Post Op Note Date & Time Jul 13, 2017 at 15:19 Vital Signs Pain Intensity: 2 Vital Signs Past 12 Hours Date Time Temp Pulse Resp B/P (MAP) Pulse Ox O2 Delivery O2 Flow Rate FiO2 07/13/17 15:00 100 16 158/94 (115) 96 07/13/17 14:32 37.0 99 16 151/97 (115) 95 Room Air 07/13/17 14:26 37.0 99 16 152/106 97 Room Air 07/13/17 14:21 96 18 152/97 97 07/13/17 14:21 96 18 152/97 97 07/13/17 14:21 100 18 07/13/17 14:21 100 18 07/13/17 14:16 95 17 170/105 97 07/13/17 14:16 96 17 07/13/17 14:16 96 17 07/13/17 14:16 95 17 170/105 97 07/13/17 14:11 110 16 158/101 97 07/13/17 14:11 110 16 07/13/17 14:11 110 16 158/101 97 07/13/17 14:11 110 16 07/13/17 14:06 88 17 161/106 97 07/13/17 14:06 88 17 161/106 97 07/13/17 14:06 88 17 07/13/17 14:06 88 17 07/13/17 14:01 90 18 07/13/17 14:01 85 18 176/106 97 07/13/17 14:01 85 18 176/106 97 07/13/17 14:01 90 18 07/13/17 13:56 91 25 07/13/17 13:56 91 25 07/13/17 13:56 89 25 159/109 98 07/13/17 13:56 89 25 159/109 98 07/13/17 13:51 88 14 07/13/17 13:51 88 14 07/13/17 13:51 88 14 163/106 100 07/13/17 13:51 88 14 163/106 100 07/13/17 13:46 85 13 162/108 99 07/13/17 13:46 85 13 162/108 99 07/13/17 13:46 86 13 07/13/17 13:46 86 13 07/13/17 13:41 88 16 07/13/17 13:41 88 16 163/102 100 07/13/17 13:41 88 16 163/102 100 07/13/17 13:41 88 16 07/13/17 13:36 93 18 163/102 100 07/13/17 13:36 92 18 07/13/17 13:36 93 18 163/102 100 07/13/17 13:36 92 18 07/13/17 13:31 87 19 07/13/17 13:31 87 19 171/106 100 07/13/17 13:31 87 19 07/13/17 13:31 87 19 171/106 100 07/13/17 13:26 100 20 175/102 100 07/13/17 13:26 97 20 07/13/17 13:26 97 20 07/13/17 13:26 100 20 175/102 100 07/13/17 13:21 101 16 180/108 100 07/13/17 13:21 101 16 07/13/17 13:21 101 16 180/108 100 07/13/17 13:21 101 16 07/13/17 13:17 174/110 07/13/17 13:17 174/110 07/13/17 13:16 123 100 07/13/17 13:16 123 07/13/17 13:16 123 07/13/17 13:16 37.0 118 21 174/110 100 Humidified Oxygen 6 Mask 07/13/17 13:16 123 100 07/13/17 10:50 151/95 (113) 07/13/17 10:01 36.7 90 16 171/107 (128) 98 Room Air Notes Mental Status: alert / awake / arousable, participated in evaluation Pt Amnestic to Procedure: Yes Nausea / Vomiting: adequately controlled Pain: adequately controlled Airway Patency, RR, SpO2: stable & adequate BP & HR: stable & adequate Hydration State: stable & adequate Anesthetic Complications: no major complications apparent
== END | disposition home or self-care (01) ==
LOC: X.SURG 09:36
DX: J34.2 Deviated nasal septum (principal); J34.3 Hypertrophy of nasal turbinates; J45.909 Unspecified asthma, uncomplicated; F41.9 Anxiety disorder, unspecified; F32.9 Major depressive disorder, single episode, unspecified; Z88.1 Allergy status to other antibiotic agents; Z88.2 Allergy status to sulfonamides; Z88.8 Allergy status to other drugs, medicaments and biological substances; Z87.09 Personal history of other diseases of the respiratory system; Z87.891 Personal history of nicotine dependence; Z98.818 Other dental procedure status; Z79.899 Other long term (current) drug therapy; Z98.890 Other specified postprocedural states; Z80.9 Family history of malignant neoplasm, unspecified

== ENCOUNTER 2017-07-20 21:15 | Emergency (ER) | payer OTHER ==
[~2017-07-20] VITALS: Ht 162.6 cm; Wt 82.3 kg
[~2017-07-20 21:15] MED LIST changes: -ATROPINE SULFATE 0.1 MG/ML 5ML SYR IV PRN; -CLINDAMYCIN PHOS 150 MG/ML 2 ML VIAL IV SCH; -DEXAMETHASONE SOD INJ 4 MG/ML VIAL ONE; -DiphenhydrAMINE HCL 50 MG/ML VIAL ONE; -EpHEDrine SULFATE INJ 50 MG/ML AMP IV PRN; -EpINEphrine INJ 1MG/ML AMP 1 MG/ML AMP ONE; -FENTANYL CITRATE INJ 50 MCG/1 ML 2 ML VIAL ONE; -HYDROCODONE/ACETAMIN 5/325MG TAB PO PRN; -HydrALAZINE HCL 20 MG/ML VIAL IV. STA; -HydrALAZINE HCL 20 MG/ML VIAL ONE; -LACTATED RINGER'S 1000ML 1,000 ML IV SCH; -LIDOCAINE 4% MPF SOAK 5 ML = 1 DOSE TOP ONE; -LIDOCAINE HCL 2% 2 ML VIAL (20MG/ML) ONE; -LIDOCAINE/EPINEPHRINE 1% 20 ML VIAL ONE; -MIDAZOLAM HCL 1 MG/ML 2ML VIAL ONE; -NURSING VERBAL MED ORDER ONE; -ONDANSETRON INJ 2 MG/ML 2 ML VIAL IV PRN; -ONDANSETRON INJ 2 MG/ML 2 ML VIAL ONE; -OXYMETAZOLINE HCL 0.05% NA SPR 15 ML BTL NAE SCH; -OXYMETAZOLINE HCL 0.05% NA SPR 15 ML BTL PRN; -PROPOFOL IV EMULSION 10 MG/ML 20 ML VIAL IV ONE; -ROCURONIUM BROMIDE 10 MG/ML 5 ML VIAL IV ONE
[2017-07-20 21:21] VITALS: TEMP 37.3; Ht 162.6 cm; Wt 82.3 kg
[2017-07-20] MEDS ORDERED: KETOROLAC TROMETHAMINE 60 MG/2 ML VIAL IM STA (22:39)
[2017-07-20] MEDS ORDERED: HYDR-5688 PO (23:14)
--- NOTE | 2017-07-20 23:16 | EMERGENCY ROOM VISIT NOTE ---
ED Visit Note First contact with patient: 22:30 CHIEF COMPLAINT: Postoperative pain HISTORY OF PRESENT ILLNESS: This 31-year-old female patient presents to the emergency department, ambulatory, complaining of postoperative pain. The patient had a debridement yesterday by Dr. Gloria from a septoplasty, turbinate reduction which was performed last week. She states today she experienced increased swelling, bleeding, and pain. She states she was given a prescription for Vicodin yesterday by her surgeon, however when she went to have the prescription filled, it was not signed. She was unable to fill the prescription. When she realized this, she contacted the office and was told that Dr. Gloria had left for the day, and she was unable to get a new prescription. She states she did take 1 g of Tylenol proximally 4 hours ago without relief of her pain. She has not taken any Motrin, as she was concerned for possible increased bleeding. She has been having significant pain issues since the surgery and is having difficulty getting off of pain medication. She denies any new trauma. She denies any recent congestion, runny nose, sore throat, or fever. She denies any recent illness. The patient has been healing well from the procedure. REVIEW OF SYSTEMS: A 6 system review of systems was performed with positives and pertinent negatives listed in the history of present illness. All other systems were reviewed and are negative. ALLERGIES: Clindamycin, Reglan, prochlorperazine, ceftriaxone, ciprofloxacin, sulfa MEDICATIONS: Lamictal, Klonopin, Cymbalta, gabapentin, Polo, Zofran, MiraLAX PMH: Septoplasty, turbinate reduction, chronic pain SOCIAL HISTORY: The patient lives locally with family. She denies drug, alcohol , tobacco use. PHYSICAL EXAM: VITALS: Vitals are noted on the nurse's note and reviewed by myself. Vital signs stable. GENERAL: This is a 31-year-old white female, in no acute distress, nondiaphoretic, well-developed well-nourished. SKIN: The skin was without rashes, erythema, edema, or bruising. There is no tenting of the skin. Capillary reflex less than 2 seconds. HEAD: Normocephalic atraumatic. EARS: External auditory canals clear, tympanic membranes pearly ramos without erythema or effusion bilaterally. EYES: Pupils equal round and reactive to light and accommodation. Conjunctivae without injection, sclerae without icterus. Extraocular movements intact. NOSE: Patent, turbinates with mild inflammation, but no discharge. No sinus tenderness. MOUTH: Mucous membranes moist. Tonsils are not enlarged. Pharynx without erythema or exudate. Uvula midline. Airway patent. Tongue does not deviate. NECK: Supple without nuchal rigidity. No lymphadenopathy. No thyromegaly. Cervical spine is nontender. No JVD. HEART: Regular rate and rhythm without murmurs gallops or rubs. LUNGS: Clear to auscultation bilaterally without wheezes, rales or rhonchi. No dullness to percussion. No retractions or accessory muscle use. NEURO: Patient was alert and oriented to person place and time. Normal sensation to light and sharp touch. No focal neurological deficits. EMERGENCY DEPARTMENT COURSE: The patient was seen and evaluated as above. She was given 60 mg Toradol IM. She was given an ice pack. She was reassessed and did note improvement in symptoms with the ice application. The patient states she forgot the prescription in her car, which is at home at the moment. I advised the patient that I would provide her with a prescription for Polo if she provides me with the written prescription without signature, as this is a narcotic and controlled substance, and I would need to destroy the prescription. The patient was agreeable. Her roommate brought the prescription to the emergency department for the patient. I reviewed the prescription, and note no signature. I did confiscate the prescription and it was placed in the shred box. 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 The patient was agreeable with this plan. She was encouraged to follow-up with Dr. Gloria on Sunday. Discharge instructions reviewed, the patient was discharged home in good condition. I attest that I have personally reviewed the patient's current medication list. Blood Pressure Screening: Patient was found to have a slightly elevated blood pressure due to circumstances. I do not believe that the patient requires hypertension monitoring. Differential diagnosis includes postoperative pain/complication, upper respiratory infection, acute sinusitis, chronic pain, drug-seeking behavior, and others DIAGNOSIS: Postoperative pain, nasal septoplasty The chart was completed utilizing [employer] voice recognition software. Grammatical errors, random word insertions, pronoun errors, and incomplete sentences are an occasional consequence of this system due to software limitations, ambient noise, and hardware issues. Any formal questions or concerns about the content, text, or information contained within the body of this dictation should be directly addressed to the provider for clarification. Problem List Medical Problems: (1) History of kidney stones Status: Chronic (2) History of ovarian cyst Status: Chronic Surgical Problems: (1) Hx of tonsillectomy Status: Resolved (2) SBO (small bowel obstruction) Status: Resolved Current/Historical Medications Scheduled Control Pills ( Control Pills), 1 TAB PO HS Duloxetine HCl (Cymbalta), 90 MG PO HS Gabapentin (Neurontin), 100 MG PO TID Lamotrigine (Lamictal), 100 MG PO HS Magnesium Oxide (Mag-Ox), 400 MG PO HS Riboflavin (Vitamin B-2), 400 MG PO DAILY Scheduled PRN Clonazepam (Klonopin), 2 MG PO BID PRN for Anxiety Hydrocodone/Acetaminophen 5MG/325MG (Polo 5MG/325MG), 1-2 TABLET PO Q4-6H PRN for Pain Ondasetron Odt (Zofran Odt), 4 MG SL Q6H PRN for Nausea or Vomiting Polyethylene Glycol 3350 (Miralax), 17 GM PO DAILY PRN for Constipation Allergies Coded Allergies: Ceftriaxone (Verified Allergy, Unknown, RASH ALL OVER BODY, 07/13/17) Ciprofloxacin (Verified Allergy, Unknown, ITCHING, FEVER, 07/13/17) Clindamycin (Verified Allergy, Unknown, ITCHING/BURNING, 07/13/17) Metoclopramide (Verified Adverse Reaction, Intermediate, panic attacks, 07/13/17) Prochlorperazine (Verified Adverse Reaction, Intermediate, panic attack, ) Sulfa Antibiotics (Verified Adverse Reaction, Intermediate, vomiting, ) Vital Signs Date Time Temp Pulse Resp B/P (MAP) Pulse Ox O2 Delivery O2 Flow Rate FiO2 07/20/17 23:35 94 18 142/87 98 07/20/17 21:21 37.3 94 18 158/103 98 Room Air Medications Administered Medications (Trade) Dose Ordered Sig/Radha Route Start Time Stop Time Status Last Admin Dose Admin Ketorolac Tromethamine (Toradol Inj) 60 mg NOW STAT IM 07/20/17 22:39 07/20/17 22:40 DC 07/20/17 22:53 60 MG Departure Information Impression Primary Impression: H/O nasal septoplasty Additional Impression: Postoperative pain Dispostion Home / Self-Care Condition GOOD Prescriptions Hydrocodone/Acetaminophen 5MG/325MG (Polo 5MG/325MG) Tab 1-2 TABLET PO Q4-6H Y for Pain, #30 TAB For Initial Treatment Prov: Carolyn Stephenson PA-C 07/20/17 Referrals Noe Willett MD (PCP) Alexander Gloria MD Patient Instructions My [facility] Additional Instructions You were seen in the emergency department today for postoperative pain and for prescription of Polo, as your surgeon had not signed the previous prescription. You have been prescribed Polo to be used for pain control. Take 1-2 tablets every 4-6 hours as needed for pain. This is a narcotic medication. You cannot drive or consume alcohol while on this medicine. This medicine should only be used for pain that cannot be controlled with [id number] pain medicines. Ibuprofen(Motrin, Advil) may be used for fever or pain. Use 600mg every six hours as needed. Take with food. Avoid using more than 2400mg in a 24 hour period. Do not use 2400mg per day for more than three consecutive days without physician direction. Prolonged inappropriate use can lead to stomach upset or ulcers. (AND/OR) Acetaminophen(Tylenol) may be used for fever or pain. Use 1000mg every six hours as needed. Avoid using more than 3000mg in a 24 hour period. Please follow-up with your surgeon for any further pain issues. Return to the emergency department for any worsening concerns. Problem Qualifiers
[2017-07-20 23:35] VITALS: BP 142/87; PULSE 94; O2SAT 98
== END 2017-07-20 23:36 | disposition home or self-care (01) ==
LOC: C.EDB 21:17 → C.EDD 23:36
DX: J34.2 Deviated nasal septum (principal); G89.18 Other acute postprocedural pain; Z88.8 Allergy status to other drugs, medicaments and biological substances; Z88.2 Allergy status to sulfonamides

== ENCOUNTER 2017-08-12 11:10 | Emergency (ER) | payer OTHER ==
[~2017-08-12] VITALS: Ht 162.6 cm; Wt 82.5 kg
[~2017-08-12 11:10] MED LIST changes: +HYDR-5688 PO
[2017-08-12 11:17] VITALS: TEMP 37; Ht 162.6 cm; Wt 82.5 kg
[2017-08-12] MEDS ORDERED: KETOROLAC TROMETHAMINE 30 MG/ML VIAL IV STA (11:43)
[2017-08-12] MEDS ORDERED: DIAZEPAM INJ 5 MG/ML 2 ML CARP IV STA (11:43)
[2017-08-12] MEDS ORDERED: ONDANSETRON INJ 2 MG/ML 2 ML VIAL IV STA (11:43)
[2017-08-12] MEDS ORDERED: SODIUM CHLORIDE 0.9% 1000ML 1,000 ML IV STA (11:43)
[2017-08-12] MEDS ORDERED: DiphenhydrAMINE HCL 50 MG/ML VIAL IV STA (11:43)
[2017-08-12] MEDS ORDERED: DEXAMETHASONE **PF** INJ 10 MG/ML VIAL IV ONE (11:45)
[2017-08-12] MEDS ORDERED: DIHYDROERGOTAMINE MESYLATE 1 MG/ML VIAL IV ONE (11:45)
[2017-08-12] MEDS ORDERED: CETI10TA84 PO (12:01)
[2017-08-12] MEDS ORDERED: ACET-1693 PO (12:01)
[2017-08-12] MEDS ORDERED: DIPH25CA65 PO (12:01)
[2017-08-12] MEDS ORDERED: GABA-112 PO (12:01)
[2017-08-12] MEDS ORDERED: DIAZEPAM 5 MG/ML INJ 10ML VIAL ONE (12:22)
[2017-08-12 13:25] VITALS: BP 175/121; PULSE 74; O2SAT 95
--- NOTE | 2017-08-12 15:19 | EMERGENCY ROOM VISIT NOTE ---
History First contact with patient: 11:23 Chief Complaint: HEADACHE Stated Complaint: STRAINED NECK,MIGRAINE History of Present Illness The patient is a 31 year old female who presents to the Emergency Room with complaints of a recurrent migraine headache. The patient reports a history of chronic migraines, and is under the management of her neurologist in [place]. She has an appointment this Sunday to see a PA in the office, Kike Poe. I last saw the patient in June, and the patient reports that she has seen her neurologist since that time with recommendations for migraine management. The patient reports that her migraine symptoms are the same as all prior, and not the worst headache of her life. She describes a retro-orbital headache, right worse than left with nausea. She also reports photophobia and phonophobia. The patient believes that her migraine may have been triggered by a recent upper respiratory infection that is currently being managed by her PCP. She also pulled a muscle in the left side of her neck. Otherwise her migraine is similar to all prior. She currently rates her discomfort a 6 out of 10. The patient reports that she is also currently taking magnesium sulfate 400 mg at bedtime, as well as riboflavin. She has also taken gabapentin, Tylenol, Zofran and clonazepam without any relief. Review of Systems 10 system review was performed and was negative except for pertinent positives and negatives as indicated in history of present illness Past Medical/Surgical History Medical Problems: (1) chronic migraine headache disorder (2) Exploratory laparotomy scar (3) Fibromyalgia (4) History of deviated nasal septum (5) History of kidney stones (6) History of ovarian cyst (7) History of small bowel obstruction (8) Major depressive disorder, recurrent, moderate (9) Nausea & vomiting (10) Ovarian cyst (11) PID (pelvic inflammatory disease) (12) Recurrent nephrolithiasis (13) Recurrent sinusitis (14) Restless leg syndrome Surgical Problems: (1) H/O lithotripsy (2) H/O wisdom tooth extraction (3) Hx of tonsillectomy (4) SBO (small bowel obstruction) (5) Ureterostomy status Family History Patient reports no known family medical history. 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 Status: [employer] student Current/Historical Medications Scheduled Control Pills ( Control Pills), 1 TAB PO HS Cetirizine (Zyrtec), 10 MG PO PRN Diphenhydramine Hcl (Benadryl Allergy), 1 CAP PO HS Duloxetine HCl (Cymbalta), 90 MG PO HS Gabapentin (Neurontin), 100 MG PO PRN Lamotrigine (Lamictal), 100 MG PO HS Magnesium Oxide (Mag-Ox), 400 MG PO HS Riboflavin (Vitamin B-2), 400 MG PO DAILY Scheduled PRN Clonazepam (Klonopin), 2 MG PO BID PRN for Anxiety Polyethylene Glycol 3350 (Miralax), 17 GM PO DAILY PRN for Constipation Miscellaneous Medications Acetaminophen Tab (Tylenol), 325 MG PO Physical Exam Vital Signs Date Time Temp Pulse Resp B/P (MAP) Pulse Ox O2 Delivery O2 Flow Rate FiO2 08/12/17 13:25 74 16 175/121 95 Room Air 08/12/17 12:48 75 16 163/116 96 Room Air 08/12/17 12:04 91 14 176/124 98 Room Air 08/12/17 11:17 37.0 103 16 151/98 98 Room Air Physical Exam CONSTITUTIONAL: Healthy and well nourished. Alert and oriented X 3 with positive affect. Patient appears in mild discomfort. HEENT: Normocephalic, atraumatic. Pupils equal, round and reactive. Patient is photophobic, precluding funduscopic exam. NECK: Full active range of motion without discomfort. She has mild tenderness to palpation of the left cervical musculature without palpable spasm. No focal tenderness through the central cervical spine. No JVD or carotid bruits. RESPIRATORY: Clear to auscultation bilaterally with no wheezing, crackles, rhonchi or stridor. CARDIOVASCULAR: Regular rate and rhythm with no murmurs, rubs or gallops. MUSCULOSKELETAL: Examination shows mild tenderness to palpation over the left trapezius region. No palpable spasm, ecchymosis or erythema. No focal tenderness through the thoracolumbar spine or intrascapular region. INTEGUMENTARY: No rash or other significant dermatologic conditions noted. NEUROLOGIC: Cranial nerves II-XII grossly intact. No focal neurologic deficits noted. No ataxia with ambulation. Negative pronator drift. Medical Decision & Procedures Medications Administered Medications (Trade) Dose Ordered Sig/Radha Route Start Time Stop Time Status Last Admin Dose Admin Sodium Chloride 1,000 ml @ 999 mls/hr Q1H1M STAT IV 08/12/17 11:43 08/12/17 12:43 DC 08/12/17 11:56 999 MLS/HR Diphenhydramine HCl (Benadryl Inj) 50 mg NOW STAT IV 08/12/17 11:43 08/12/17 11:47 DC 08/12/17 11:55 50 MG Dexamethasone Sodium Phosphate (Dexamethasone Inj Pf) 10 mg NOW ONCE IV 08/12/17 11:45 08/12/17 11:47 DC 08/12/17 11:55 10 MG Ondansetron HCl (Zofran Inj) 4 mg NOW STAT IV 08/12/17 11:43 08/12/17 11:47 DC 08/12/17 11:55 4 MG Ketorolac Tromethamine (Toradol Inj) 30 mg NOW STAT IV 08/12/17 11:43 08/12/17 11:47 DC 08/12/17 11:56 30 MG Dihydroergotamine Mesylate (D.H.E. 45 Inj) 1 mg NOW ONCE IV 08/12/17 11:45 08/12/17 11:47 DC 08/12/17 12:28 1 MG Diazepam (Valium Inj) 5 mg STK-MED ONCE .ROUTE 08/12/17 12:22 08/12/17 12:23 DC 08/12/17 12:28 5 MG ED Course Patient history and physical exam were performed. Nurse's notes were reviewed. Vital signs were reviewed, showing an elevated blood pressure of 151/98. She is also tachycardic at 103 bpm. She is afebrile with a normal O2 saturation on room air. I did review prior medical records, showing that the patient was seen several times in June for migraines. She had a significant decrease in visit in July. The patient presents with a hand written list of recommended medications for her migraine treatment. The patient reports that she will have her neurologist make an official letter on Sunday for her treatment plan. According to her recommendations, IV access was established. The patient was hydrated with a liter of normal saline, and was administered Benadryl 50 mg, Decadron 10 mg, Zofran 4 mg, Valium 5 mg and DHE 1 mg IV. The patient was observed for an hour, and had reduction of her pain to a 5 out of 10. She did feel well enough for discharge. The patient is welcome to return as needed for further management. I did suggest that she advise her neurologist of her ED visit. The patient reports that she will get a formal treatment plan from her visit on Sunday. The patient was happy with plan of care, and voiced understanding of all discharge instructions. Medical Decision Patient presents with complaint of migraine headache that is similar to all prior migraines, except for mild left neck discomfort that she attributes to a strain. She does not feel that any further imaging studies are warranted, and I agree. I also do not feel that laboratory studies are needed at this point. Based on history and physical exam findings, I do not suspect CVA/TIA, thromboembolic event, intracranial bleed, abscess or carbon monoxide poisoning. [place] Drug Monitoring Program Search Results: patient reviewed within database, no issues identified Medication Reconcilliation Current Medication List: was personally reviewed by me Blood Pressure Screening Patient's blood pressure: Normal blood pressure Impression Primary Impression: chronic migraine headache disorder Departure Information Referrals Noe Willett MD (PCP) Patient Instructions My [facility]
== END 2017-08-12 13:33 | disposition home or self-care (01) ==
LOC: C.EDB 11:11 → C.EDC 13:33
DX: G43.909 Migraine, unspecified, not intractable, without status migrainosus (principal); M79.7 Fibromyalgia; Z87.442 Personal history of urinary calculi; F32.9 Major depressive disorder, single episode, unspecified; G25.81 Restless legs syndrome; Z87.891 Personal history of nicotine dependence; Z79.3 Long term (current) use of hormonal contraceptives; Z79.899 Other long term (current) drug therapy

== ENCOUNTER 2017-08-19 20:01 | Emergency (ER) | payer OTHER ==
[~2017-08-19] VITALS: Ht 162.6 cm; Wt 81.9 kg
[~2017-08-19 20:01] MED LIST changes: +ACET-1693 PO; +CETI10TA84 PO; +DIPH25CA65 PO; -HYDR-5688 PO; -ONDA4TAB10 SL
[2017-08-19 20:05] VITALS: TEMP 36.9
[2017-08-19] MEDS ORDERED: SODIUM CHLORIDE 0.9% 1000ML 1,000 ML IV STA (20:15)
[2017-08-19] MEDS ORDERED: DiphenhydrAMINE HCL 50 MG/ML VIAL IV STA (20:15)
[2017-08-19] MEDS ORDERED: MAGNESIUM SULFATE 1GM / D5W 1 GM BAG IV STA (20:15)
[2017-08-19] MEDS ORDERED: PROCHLORPERAZINE 5 MG/ML 2 ML VIAL IV STA (20:15)
[2017-08-19] MEDS ORDERED: KETOROLAC TROMETHAMINE 30 MG/ML VIAL IV STA (20:15)
[2017-08-19] MEDS ORDERED: ALBUTEROL 0.083% NEBU SOLN 3 ML VIAL INH STA ×2 (20:15→21:29)
--- NOTE | 2017-08-19 20:20 | EMERGENCY ROOM VISIT NOTE ---
History Report prepared by Yane: Dayton Schmitt Under the Supervision of: Dr. Efrain Martínez M.D. First contact with patient: 20:09 Chief Complaint: FLU LIKE SX Stated Complaint: VOMIT,DIARRHEA,FEVER,HEADACHE History of Present Illness The patient is a 31 year old female who presents to the Emergency Room with complaints of worsening flu like symptoms that began three days ago. She rates her discomfort as a 9/10 in severity. The patient states that she developed joint pain and a low grade fever three days ago. She reports that her symptoms worsened over the last couple of days. The patient states that she has had a temperature of 100 persistently for the last two days. She reports that she developed a productive cough with green and brown sputum. The patient states she has also been experiencing neck stiffness and a headache. She reports her head pain is located on the posterior side and "feels like it is going to explode". The patient states she does have a history of migraines, but states her current headache is not similar. The patient reports she has also been experiencing vomiting and diarrhea. She states She reports she has been using Sudafed and albuterol for her symptoms without relief. The patient states she also took Tylenol for her symptoms with her last dose at 1600. She denies recent antibiotic use and smoking. Source of History: patient Onset: three days ago Position: other (global) Associated Symptoms: + headache, + cough, + vomiting, + diarrhea Review of Systems See HPI for pertinent positives & negatives. A total of 10 systems reviewed and were otherwise negative. Past Medical & Surgical Medical Problems: (1) chronic migraine headache disorder (2) Exploratory laparotomy scar (3) Fibromyalgia (4) History of deviated nasal septum (5) History of kidney stones (6) History of ovarian cyst (7) History of small bowel obstruction (8) Major depressive disorder, recurrent, moderate (9) Nausea & vomiting (10) Ovarian cyst (11) PID (pelvic inflammatory disease) (12) Recurrent nephrolithiasis (13) Recurrent sinusitis (14) Restless leg syndrome Surgical Problems: (1) H/O lithotripsy (2) H/O wisdom tooth extraction (3) Hx of tonsillectomy (4) SBO (small bowel obstruction) (5) Ureterostomy status Family History Patient reports no known family medical history. 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 Status: [employer] student Current/Historical Medications Scheduled Amoxicillin & Pot Clavulanate (Augmentin 875-125 mg), 1 TAB PO BID Control Pills ( Control Pills), 1 TAB PO HS Cetirizine (Zyrtec), 10 MG PO PRN Diphenhydramine Hcl (Benadryl Allergy), 1 CAP PO HS Duloxetine HCl (Cymbalta), 90 MG PO HS Lamotrigine (Lamictal), 100 MG PO HS Magnesium Oxide (Mag-Ox), 400 MG PO HS Ondasetron Odt (Zofran Odt), 4 MG SL Q6H Riboflavin (Vitamin B-2), 400 MG PO DAILY Scheduled PRN Acetaminophen (Acetaminophen Extra Stren), 1,000 MG PO DAILY PRN for Pain Clonazepam (Klonopin), 2 MG PO BID PRN for Anxiety Gabapentin (Neurontin), 100 MG PO PRN PRN for Migraine Polyethylene Glycol 3350 (Miralax), 17 GM PO DAILY PRN for Constipation Allergies Coded Allergies: Ceftriaxone (Verified Allergy, Unknown, RASH ALL OVER BODY, 08/19/17) Ciprofloxacin (Verified Allergy, Unknown, ITCHING, FEVER, 08/19/17) Clindamycin (Verified Allergy, Unknown, ITCHING/BURNING, 08/19/17) Metoclopramide (Verified Adverse Reaction, Intermediate, panic attacks, ) Prochlorperazine (Verified Adverse Reaction, Intermediate, panic attack, ) Sulfa Antibiotics (Verified Adverse Reaction, Intermediate, vomiting, 08/19) Physical Exam Vital Signs Date Time Temp Pulse Resp B/P (MAP) Pulse Ox O2 Delivery O2 Flow Rate FiO2 08/19/17 23:49 94 18 138/71 100 08/19/17 23:34 94 18 142/87 100 Room Air 08/19/17 22:24 104 18 151/94 100 Room Air 08/19/17 21:57 100 20 132/74 99 Room Air 08/19/17 20:48 108 20 140/89 99 Room Air 08/19/17 20:45 116 08/19/17 20:41 100 Room Air 08/19/17 20:05 36.9 121 20 144/96 96 Room Air Physical Exam GENERAL: Awake, alert, well-appearing, in no acute distress HENT: Normocephalic, atraumatic. Oropharynx unremarkable. No evidence of meningitis or encephalitis. EYES: Normal conjunctiva. Sclera non-icteric. NECK: Supple. No nuchal rigidity. FROM. No JVD. RESPIRATORY: Clear to auscultation. CARDIAC: Regular rate, normal rhythm. Extremities warm and well perfused. Pulses equal. ABDOMEN: Soft, non-distended. No tenderness to palpation. No rebound or guarding. No masses. RECTAL: Deferred. MUSCULOSKELETAL: Chest examination reveals no tenderness. The back is symmetrical on inspection without obvious abnormality. There is no CVA tenderness to palpation. No joint edema. LOWER EXTREMITIES: Calves are equal size bilaterally and non-tender. No edema. No discoloration. NEURO: Normal sensorium. No sensory or motor deficits noted. SKIN: No rash or jaundice noted. Medical Decision & Procedures ER Provider Diagnostic Interpretation: X-ray results as stated below per interpretation by me and the radiologist: CHEST ONE VIEW PORTABLE HISTORY: Shortness of breath. COMPARISON: Chest 05/10/2017. FINDINGS: The lungs are clear. Cardiac silhouette is normal in size. No pleural effusions. No pneumothorax. IMPRESSION: No acute process. Electronically signed by: Denver Robles M.D. 08/19/2017 9:31 PM Dictated Date/Time: 08/19/2017 9:31 PM Laboratory Results 08/19/17 20:07 Red Blood Count 4.13, Mean Corpuscular Volume 91.3, Mean Corpuscular Hemoglobin 30.8, Mean Corpuscular Hemoglobin Concent 33.7, Mean Platelet Volume 9.9, Neutrophils (%) (Auto) 82.7, Lymphocytes (%) (Auto) 9.3, Monocytes (%) (Auto) 6.9, Eosinophils (%) (Auto) 0.7, Basophils (%) (Auto) 0.1, Neutrophils # (Auto) 14.71, Lymphocytes # (Auto) 1.66, Monocytes # (Auto) 1.22, Eosinophils # (Auto) 0.12, Basophils # (Auto) 0.02 08/19/17 20:07 Test 08/19/17 20:07 08/19/17 20:35 White Blood Count 17.78 K/uL (4.8-10.8) Red Blood Count 4.13 M/uL (4.2-5.4) Hemoglobin 12.7 g/dL (12.0-16.0) Hematocrit 37.7 % (37-47) Mean Corpuscular Volume 91.3 fL (80-100) Mean Corpuscular Hemoglobin 30.8 pg (25-34) Mean Corpuscular Hemoglobin Concent 33.7 g/dl (32-36) Platelet Count 411 K/uL (130-400) Mean Platelet Volume 9.9 fL (7.4-10.4) Neutrophils (%) (Auto) 82.7 % Lymphocytes (%) (Auto) 9.3 % Monocytes (%) (Auto) 6.9 % Eosinophils (%) (Auto) 0.7 % Basophils (%) (Auto) 0.1 % Neutrophils # (Auto) 14.71 K/uL (1.4-6.5) Lymphocytes # (Auto) 1.66 K/uL (1.2-3.4) Monocytes # (Auto) 1.22 K/uL (0.11-0.59) Eosinophils # (Auto) 0.12 K/uL (0-0.5) Basophils # (Auto) 0.02 K/uL (0-0.2) RDW Standard Deviation 47.9 fL (36.4-46.3) RDW Coefficient of Variation 14.2 % (11.5-14.5) Immature Granulocyte % (Auto) 0.3 % Immature Granulocyte # (Auto) 0.05 K/uL (0.00-0.02) Urine Color DK YELLOW Urine Appearance CLOUDY (CLEAR) Urine pH 6.5 (4.5-7.5) Urine Specific [place] 1.027 (1.000-1.030) Urine Protein NEG (NEG) Urine Glucose (UA) NEG (NEG) Urine Ketones NEG (NEG) Urine Occult Blood NEG (NEG) Urine Nitrite NEG (NEG) Urine Bilirubin NEG (NEG) Urine Urobilinogen NEG (NEG) Urine Leukocyte Esterase SMALL (NEG) Urine WBC (Auto) 10-30 /hpf (0-5) Urine RBC (Auto) 0-4 /hpf (0-4) Urine Hyaline Casts (Auto) 10-30 /lpf (0-5) Urine Epithelial Cells (Auto) >30 /lpf (0-5) Urine Bacteria (Auto) 1+ (NEG) Urine Renal Epithelial Cells /lpf (0-5) Anion Gap 10.0 mmol/L (3-11) Est Creatinine Clear Calc Drug Dose 97.0 ml/min Estimated GFR () 102.9 Estimated GFR (Non- 88.8 BUN/Creatinine Ratio 5.0 (10-20) Calcium Level 8.7 mg/dl (8.5-10.1) Total Bilirubin 0.5 mg/dl (0.2-1) Direct Bilirubin 0.1 mg/dl (0-0.2) Aspartate Amino Transf (AST/SGOT) 20 U/L (15-37) Alanine Aminotransferase (ALT/SGPT) 29 U/L (12-78) Alkaline Phosphatase 97 U/L (45-117) Total Protein 8.0 gm/dl (6.4-8.2) Albumin 3.8 gm/dl (3.4-5.0) Thyroid Stimulating Hormone (TSH) 0.858 uIu/ml (0.300-4.500) Human Chorionic Gonadotropin, Qual NEG (NEG) Monoscreen NEG (NEG) Influenza Type A Antigen Neg for Influ A (NEG) Influenza Type B Antigen Neg for Influ B (NEG) Labs reviewed by ED physician. Medications Administered Medications (Trade) Dose Ordered Sig/Radha Route Start Time Stop Time Status Last Admin Dose Admin Albuterol Sulfate (Ventolin 0.083% 2.5MG/3ML Neb) 2.5 mg NOW STAT INH 08/19/17 20:15 08/19/17 20:18 DC 08/19/17 20:30 2.5 MG Ketorolac Tromethamine (Toradol Inj) 30 mg NOW STAT IV 08/19/17 20:15 08/19/17 20:18 DC 08/19/17 20:30 30 MG Diphenhydramine HCl (Benadryl Inj) 50 mg NOW STAT IV 08/19/17 20:15 08/19/17 20:18 DC 08/19/17 20:30 50 MG Magnesium Sulfate (Magnesium Sulfate 1gm / D5W) 1 gm NOW STAT IV 08/19/17 20:15 08/19/17 20:18 DC 08/19/17 20:30 1 GM Sodium Chloride 1,000 ml @ 999 mls/hr Q1H1M STAT IV 08/19/17 20:15 08/19/17 21:15 DC 08/19/17 20:31 999 MLS/HR Promethazine HCl 25 mg/Sodium Chloride 51 ml @ 204 mls/hr NOW STAT IV 08/19/17 20:54 08/19/17 21:08 DC 08/19/17 21:09 204 MLS/HR Albuterol Sulfate (Ventolin 0.083% 2.5MG/3ML Neb) 2.5 mg NOW STAT INH 08/19/17 21:29 08/19/17 21:30 DC 08/19/17 21:54 2.5 MG Potassium Chloride (Klor-Con M10) 40 meq NOW STAT PO 08/19/17 21:37 08/19/17 21:38 DC 08/19/17 21:54 40 MEQ Valproate Sodium 500 mg/Dextrose 55 ml @ 55 mls/hr NOW IV 08/19/17 21:45 08/20/17 00:09 DC 08/19/17 22:34 55 MLS/HR Amoxicillin/ Clavulanate Potassium (Augmentin Tab) 875 mg ONE ONCE PO 08/19/17 21:45 08/19/17 21:46 DC 08/19/17 21:53 875 MG Dexamethasone Sodium Phosphate (Dexamethasone Inj Pf) 10 mg STK-MED ONCE .ROUTE 08/19/17 21:51 08/19/17 21:52 DC 08/19/17 21:54 10 MG Sodium Chloride ([place] Nasal [place]) 2 sprays NOW ONCE NA 08/19/17 22:00 08/19/17 22:01 DC 08/19/17 22:21 2 SPRAYS Albuterol (Ventolin Hfa Inhaler) 2 puffs NOW STAT INH 08/19/17 21:54 08/19/17 21:56 DC 08/19/17 22:21 2 PUFFS ED Course 2009: Past medical records reviewed. The patient was evaluated in room C09. A complete history and physical examination was performed. 2014: Ordered Sodium Chloride 1000 ml @ 999 mls/hr IV, Magnesium Sulfate 1 gm IV , Benadryl Injection 50 mg IV, Compazine Injection 10 mg IV, Toradol Injection 30 mg IV, Albuterol Sulfate 2.5 mg INH. 2053: Ordered Promethazine HCL 25 mg/ Sodium Chloride 51 ml @ 204 mls/hr IV. 2126: Ordered Dexamethasone Sodium Phosphate 10 mg/ Syringe 2.4 ml @ 1 mls/min IV. 2128: Ordered Albuterol Sulfate 2.5 mg INH. Medical Decision Prior records/ancillary studies reviewed. Triage Nursing notes reviewed. Additional history obtained from the patient. The patient's history was concerning for fever. Differential diagnosis: Etiologies such as viral syndrome, otitis, pharyngitis, pneumonia, influenza, meningitis, urinary tract infection, sepsis, bacteremia, as well as others were entertained. This is a 31-year-old female who presents emergency department complaining of multiple complaints. The patient is complaining of headache, neck pain, nausea vomiting and diarrhea. I will note that the patient is not . Using shared medical decision making based on the fact that the patient is having different headache pain than her normal migraine pain along with the fact that the patient has an elevation in her white blood cell count, I strongly recommended to the patient that she have a lumbar puncture however the patient has had a lumbar puncture in the past and does not believe that she needs one however she will return if the headache becomes the worst headache of her life. She was given a migraine cocktail including Toradol, Phenergan, Benadryl, magnesium. She was then given valproic acid with improvement in her symptoms along with Decadron. As the patient has a cough and has a large amount of mucus and this is been ongoing for the past 2 weeks I will treat her for sinusitis along with urinary symptoms with Augmentin. Strongly recommended to the patient should return if the headache worsens she develops fevers for a lumbar puncture. Medication Reconcilliation Current Medication List: was personally reviewed by me Blood Pressure Screening Patient's blood pressure: Elevated blood pressure Impression Primary Impression: Upper respiratory infection Additional Impression: Hypokalemia Scribe Attestation The scribe's documentation has been prepared under my direction and personally reviewed by me in its entirety. I confirm that the note above accurately reflects all work, treatment, procedures, and medical decision making performed by me. Departure Information Dispostion Home / Self-Care Prescriptions Ondasetron Odt (ZOFRAN ODT) 4 Mg Tab 4 MG SL Q6H for Nausea, #6 TAB Prov: Efrain Martínez MD 08/19/17 Amoxicillin & Pot Clavulanate (Augmentin 875-125 mg) 1 Tab Tab 1 TAB PO BID for 10 Days, #20 TAB Prov: Efrain Martínez MD 08/19/17 Referrals Noe Willett MD (PCP) Patient Instructions [facility] Problem Qualifiers Primary Impression: Upper respiratory infection URI type: unspecified URI Qualified Codes: J06.9 - Acute upper respiratory infection, unspecified
[2017-08-19 20:28] VITALS: Ht 162.6 cm; Wt 81.9 kg
[2017-08-19 20:41] VITALS: O2SAT 100
[2017-08-19] MEDS ORDERED: PROMETHAZINE HCL INJ 25 MG in SODIUM CHLORIDE 0.9% 50ML 50 ML IV STA (20:54)
[2017-08-19 21:04] LABS: BASO % 0.1 %; BASO ABS # 0.02 K/uL (0-0.2); EOS % 0.7 %; EOS ABS # 0.12 K/uL (0-0.5); HEMATOCRIT 37.7 % (37-47); HEMOGLOBIN 12.7 g/dL (12.0-16.0); IG# 0.05 K/uL (0.00-0.02); LYMPH % 9.3 %; LYMPH ABS # 1.66 K/uL (1.2-3.4); MEAN CELL VOLUME 91.3 fL (80-100); MEAN CORPUSCULAR HEMOGLOBIN 30.8 pg (25-34); MEAN CORPUSCULAR HGB CONC 33.7 g/dl (32-36); MEAN PLATELET VOLUME 9.9 fL (7.4-10.4); MONO % 6.9 %; MONO ABS # 1.22 K/uL (0.11-0.59); NEUT % 82.7 %; NEUT ABS # 14.71 K/uL (1.4-6.5); PLATELET COUNT 411 K/uL (130-400); RED CELL DISTRIBUTION WIDTH CV 14.2 % (11.5-14.5); RED CELL DISTRIBUTION WIDTH SD 47.9 fL (36.4-46.3); WHITE BLOOD COUNT 17.78 K/uL (4.8-10.8)
[2017-08-19 21:14] LABS: ALBUMIN 3.8 gm/dl (3.4-5.0); CALCIUM 8.7 mg/dl (8.5-10.1); CREATININE 0.87 mg/dl (0.60-1.20); POTASSIUM 3.4 mmol/L (3.5-5.1)
[2017-08-19 21:14] LABS: INFLUENZA B ANTIGEN Neg for Influ B (NEG)
[2017-08-19] MEDS ORDERED: ACET-1222 PO (21:17)
[2017-08-19] MEDS ORDERED: DEXAMETHASONE INJ 10 MG in SYRINGE 0 ML IV STA (21:27)
--- NOTE | 2017-08-19 21:33 | DIAGNOSTIC IMAGING REPORT ---
CHEST ONE VIEW PORTABLE HISTORY: Shortness of breath. COMPARISON: Chest 05/10/2017. FINDINGS: The lungs are clear. Cardiac silhouette is normal in size. No pleural effusions. No pneumothorax. IMPRESSION: No acute process. Electronically signed by: Denver Robles M.D. 08/19/2017 9:31 PM Dictated Date/Time: 08/19/2017 9:31 PM
[2017-08-19] MEDS ORDERED: POTASSIUM CHLORIDE 10 MEQ TABCR PO STA (21:37)
[2017-08-19] MEDS ORDERED: AMOXICILLIN/CLAVULANATE TAB 875 MG TAB PO ONE (21:45)
[2017-08-19] MEDS ORDERED: VALPROATE SOD IV 500 MG in DEXTROSE 5% 50ML 50 ML IV SCH (21:45)
[2017-08-19] MEDS ORDERED: DEXAMETHASONE **PF** INJ 10 MG/ML VIAL ONE (21:51)
[2017-08-19] MEDS ORDERED: ALBUTEROL HFA 8 GM INHALER INH STA (21:54)
[2017-08-19] MEDS ORDERED: SODIUM CHLORIDE 0.65% NA SOLN 45 ML (OCEAN) ONE (22:00)
[2017-08-19] MEDS ORDERED: AMOX875T PO (22:26)
[2017-08-19] MEDS ORDERED: ONDA4TAB10 SL (22:26)
[2017-08-19 23:49] VITALS: BP 138/71; PULSE 94; O2SAT 100
[2017-08-21 14:52] LABS: EBV EARLY ANTIGEN AB < 9.00 U/ML
== END 2017-08-19 23:51 | disposition home or self-care (01) ==
LOC: C.EDB 20:02 → C.EDC 23:51
DX: J06.9 Acute upper respiratory infection, unspecified (principal); E87.6 Hypokalemia; M79.7 Fibromyalgia; Z87.442 Personal history of urinary calculi; Z93.6 Other artificial openings of urinary tract status; Z87.891 Personal history of nicotine dependence; Z98.818 Other dental procedure status; Z90.89 Acquired absence of other organs; Z98.890 Other specified postprocedural states; Z88.1 Allergy status to other antibiotic agents; Z88.8 Allergy status to other drugs, medicaments and biological substances; Z79.899 Other long term (current) drug therapy

== ENCOUNTER 2017-08-29 16:55 | Emergency (ER) | payer OTHER ==
[~2017-08-29] VITALS: Ht 162.6 cm; Wt 82.4 kg
[~2017-08-29 16:55] MED LIST changes: +ACET-1222 PO; -ACET-1693 PO; +AMOX875T PO; +ONDA4TAB10 SL
[2017-08-29 16:57] VITALS: TEMP 37.4; Ht 162.6 cm; Wt 82.4 kg
[2017-08-29] MEDS ORDERED: ONDA4TAB10 SL (17:14)
[2017-08-29] MEDS ORDERED: KETOROLAC TROMETHAMINE 10 MG TAB PO STA (17:43)
--- NOTE | 2017-08-29 17:43 | DIAGNOSTIC IMAGING REPORT ---
RIGHT TIBIA AND FIBULA 2 VIEWS; RIGHT ANKLE 3 VIEWS CLINICAL HISTORY: Right leg pain. FINDINGS: AP and lateral views of the right tibia and fibula with AP, lateral, and oblique views of the right ankle are obtained. No prior studies are available for comparison at the time of dictation. The skeletal structures are well mineralized. There is no radiographic evidence of right tibial or fibular fracture. No fracture is seen at the ankle joint. The ankle mortise is intact. The knee joint is grossly maintained. There is no ankle joint effusion. The overlying soft tissues are within normal limits. IMPRESSION: 1. There is no radiographic evidence of right tibial or fibular fracture. 2. No acute bony abnormality is seen at the right ankle joint. Electronically signed by: Graham Burger M.D. 08/29/2017 5:42 PM Dictated Date/Time: 08/29/2017 5:40 PM
[2017-08-29] MEDS ORDERED: KETO10TA PO (17:53)
[2017-08-29 18:09] VITALS: BP 141/86; PULSE 81; O2SAT 99
--- NOTE | 2017-08-29 22:10 | EMERGENCY ROOM VISIT NOTE ---
ED Visit Note First contact with patient: 17:00 Chief Complaint: Right ankle injury. History of Present Illness: Ms. Aviles is a 31-year-old white female who ambulates into the ED complaining of right ankle pain. Patient reports 2 days ago she was walking and reported her right ankle buckled and inverted. She reports she staggered and had an acute onset of right ankle pain. She reports she did not collapse onto the ankle. She reports since that time she has been having constant pain. Currently she describes an achy pain that starts over the posterior aspect of the medial malleolus. That pain extends to anteriorly over the talus and then laterally to the inferior aspect of the lateral malleolus. This pain is constant. She rates this discomfort 4/10. Her pain does not actually radiate but she does report with all movements of the ankle and weightbearing she has shooting electrical-like pain that radiates up the lateral aspect of the leg to just inferior to the knee. She rates this electrical-like pain a 6/10. She has not identified any alleviating factors related to the pain. She reports she has been taking 1 g of acetaminophen and 800 mg of ibuprofen every 8 hours since her injury and has had no relief of her discomfort. Additionally she does report she has been able to ambulate and a couple additional times her ankle has buckled while weightbearing. She denies any back pain, hip pain, thigh pain, knee pain, leg weakness/numbness /tingling. She denies any previous significant injuries or surgeries to the right ankle. Review of Systems: As noted above in history of present illness. Past Medical History: (1) chronic migraine headache disorder (2) Exploratory laparotomy scar (3) Fibromyalgia (4) History of deviated nasal septum (5) History of kidney stones (6) History of ovarian cyst (7) History of small bowel obstruction (8) Major depressive disorder, recurrent, moderate (9) Nausea & vomiting (10) Ovarian cyst (11) PID (pelvic inflammatory disease) (12) Recurrent nephrolithiasis (13) Recurrent sinusitis (14) Restless leg syndrome Surgical Problems: (1) H/O lithotripsy (2) H/O wisdom tooth extraction (3) Hx of tonsillectomy (4) SBO (small bowel obstruction) (5) Ureterostomy status Current Medications: Medications Dose Route/Sig Max Daily Dose Days Date Category Zofran Odt (Ondansetron HCl) 4 Mg Tab 4 Mg SL Q6H PRN 08/29/17 Reported Acetaminophen Extra Stren (Acetaminophen) 500 Mg Tab 1,000 Mg PO DAILY PRN 08/19/17 Reported Benadryl Allergy (Diphenhydramine Hcl) 25 Mg Cap 1 Cap PO HS 30 08/12/17 Reported Zyrtec (Cetirizine HCl) 10 Mg Tab 10 Mg PO PRN 08/12/17 Reported Neurontin (Gabapentin) 100 Mg Cap 100 Mg PO PRN PRN 08/12/17 Reported Cymbalta (Duloxetine HCl) 30 Mg Cap 90 Mg PO HS 06/28/17 Reported Vitamin B-2 (Riboflavin) 100 Mg Tab 400 Mg PO DAILY 05/10/17 Reported Mag-Ox (Magnesium Oxide) 400 Mg Tab 400 Mg PO HS 05/10/17 Reported Miralax (Polyethylene Glycol 3350) 1 Pow 17 Gm PO DAILY PRN 12/16/16 Reported Control Pills (Miscellaneous) Tab 1 Tab PO HS 12/16/16 Reported Klonopin (Clonazepam) 1 Mg Tab 2 Mg PO BID PRN 11/14/16 Reported Lamictal (Lamotrigine) 100 Mg Tab 100 Mg PO HS 11/14/16 Reported Allergies to Medications: Clindamycin, ciprofloxacin, ceftriaxone, sulfa, metoclopramide, prochlorperazine. Social History: Patient is currently employed; she feels safe in her home environment; she denies tobacco use. Physical Examination: Vital Signs: Date Time Temp Pulse Resp B/P (MAP) Pulse Ox O2 Delivery O2 Flow Rate FiO2 08/29/17 18:09 81 20 141/86 99 08/29/17 16:57 37.4 100 20 164/110 99 Room Air GENERAL: 31-year-old female in mild distress due to pain, nontoxic-appearing, afebrile and hemodynamically stable. NEUROLOGICAL: Awake, alert and oriented to person, place and time. Answering questions appropriately and following commands. SKIN: Warm, dry and pink. No soft tissue trauma noted. RIGHT LOWER EXTREMITY: No gross bony deformity. No shortening or malrotation. No tenderness throughout the knee. Moderate tenderness over fibula without bony deformity or crepitus. No tenderness over the superior tibia. No bulging or tenderness throughout the compartments. Moderate tenderness throughout the ankle without bony deformity, bony crepitus, swelling or ecchymosis. No tenderness throughout the foot. Throughout the foot the skin was warm and pink and capillary refill was brisk. She was able to distinguish light sensations to all dermatomes. Patient was able to wiggle all her toes. I attempted to check her ligamentous laxity around the ankle but all movements worsened her pain. ED Course: Patient is assessed as noted above. Patient's medication list was reviewed. Right Ankle X-Rays: Were read by myself and the radiologist and shows and shows no acute fractures or dislocations. No joint effusions or soft tissue swelling. Right Tibia/Fibula X-Rays: Were read by myself and the radiologist and shows no acute fractures or soft tissue swelling. Patient was given ice and 10 mg of Toradol by mouth for pain. Patient was placed in a gel splint and on nonweightbearing crutches. Patient was educated about today's findings and instructed on her treatment plan ; she verbalized understanding and agreement with this plan. Clinical Impression: Left ankle and fibula pain. Decision-Making: Initially my differential diagnosis I considered fracture, dislocation, ligamentous sprain, tendinous strain, compartment syndrome and other causes. Disposition: Patient discharged home in stable condition; prior to departure she was reassessed and subjectively reported she was feeling the same. Plan: Comfort measures were discussed with the patient including rest, ice, elevation , gel splint and crutches and alternating 650 mg of acetaminophen and 10 mg of Toradol every 3 hours for persistent pain. Patient was encouraged to follow-up with orthopedics if no better in 7-10 days. Patient was encouraged to return to the ED for worsening/uncontrolled pain, uncontrolled swelling, leg weakness/numbness/tingling or any new/concerning symptoms.
== END 2017-08-29 18:10 | disposition home or self-care (01) ==
LOC: C.EDB 16:55 → C.EDD 18:10
DX: S99.911A Unspecified injury of right ankle, initial encounter (principal); X50.0XXA Overexertion from strenuous movement or load, initial encounter; M79.7 Fibromyalgia; Z87.442 Personal history of urinary calculi; F32.9 Major depressive disorder, single episode, unspecified; G25.81 Restless legs syndrome; Z93.6 Other artificial openings of urinary tract status; Z88.1 Allergy status to other antibiotic agents; Z88.2 Allergy status to sulfonamides; Z88.8 Allergy status to other drugs, medicaments and biological substances

== ENCOUNTER 2017-11-30 15:34 | Emergency (ER) | payer OTHER ==
[~2017-11-30] VITALS: Ht 162.6 cm; Wt 79.1 kg
[~2017-11-30 15:34] MED LIST changes: -ACET-1222 PO; -AMOX875T PO; -BCPILLS PO; -CLON1TAB3 PO; -CYM/30 PO; -MAGN400T6 PO; -ONDA4TAB10 SL; -POLY335019 PO; -VITB2100 PO
[2017-11-30 15:40] VITALS: TEMP 37.4; Ht 162.6 cm; Wt 79.1 kg
[2017-11-30] MEDS ORDERED: ONDA4TAB10 SL (17:14)
[2017-11-30] MEDS ORDERED: SODIUM CHLORIDE 0.9% 1000ML 1,000 ML IV STA (17:23)
--- NOTE | 2017-11-30 17:23 | EMERGENCY ROOM VISIT NOTE ---
History Report prepared by Yane: Deidre Allison Under the Supervision of: Dr. Nicole Will D.O. First contact with patient: 17:07 Chief Complaint: CHEST PAIN Stated Complaint: SHARP CHEST PAIN, SOB, DIZZY, TINGLING L HAND Nursing Triage Summary: Pt reports chest pain since Sunday. Pain is left sided chest pain that is stabbing, sharp. Radiates across shoulder and into back. Pt takes oral control. History of Present Illness The patient is a 32 year old female who presents to the Emergency Room with complaints of chest pain for the past 2 days. She rates her discomfort as an 8/ 10 in severity and describes the pain as feeling "sharp and stabbing". The pain does radiate into her shoulder and back. Excedrin and anti-inflammatories have provided no relief. She denies any recent trauma or injuries. Today her pain worsened, so she called her doctor and was referred here to the ED. She states while she was sitting in class today, her left hand began to feel numb. She notes her heart rate has been elevated even when sitting down. The patient admits to a history of anxiety but states her symptoms do not feel like a panic attack. She has experienced night sweats for the past week and states she has been checking her temperature with the highest temperature being 99 degrees. She reports her urine was "really dark" earlier in the week even with drinking a lot of water. The patient admits to recent travel back and forth to [place] in the past few weeks and she does take daily control. She states her Mother was recently diagnosed with C-Diff but she herself has no symptoms. She does admit to a history of a binge eating disorder and states she is currently restricting her daily caloric intake. Her eating disorder is especially triggered by stress and school. Source of History: patient Onset: 2 days [employer] Position: chest Symptom Intensity: 8/10 Timing: worsening Modifying Factors (Relieving): other (Excedrin, NSAID) Associated Symptoms: + fevers, + diaphoresis, + numbness (left hand) Review of Systems See HPI for pertinent positives & negatives. A total of 10 systems reviewed and were otherwise negative. Past Medical & Surgical Medical Problems: (1) chronic migraine headache disorder (2) Exploratory laparotomy scar (3) Fibromyalgia (4) History of deviated nasal septum (5) History of kidney stones (6) History of ovarian cyst (7) History of small bowel obstruction (8) Major depressive disorder, recurrent, moderate (9) Nausea & vomiting (10) Ovarian cyst (11) PID (pelvic inflammatory disease) (12) Recurrent nephrolithiasis (13) Recurrent sinusitis (14) Restless leg syndrome Surgical Problems: (1) H/O lithotripsy (2) H/O wisdom tooth extraction (3) Hx of tonsillectomy (4) SBO (small bowel obstruction) (5) Ureterostomy status Family History Patient reports no known family medical history. 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 Current/Historical Medications Scheduled Control Pills ( Control Pills), 1 TAB PO HS Cetirizine (Zyrtec), 10 MG PO PRN Cyclobenzaprine Hcl (Flexeril), 10 MG PO HS Duloxetine HCl (Cymbalta), 30 MG PO HS Duloxetine Hcl (Cymbalta), 60 MG PO DAILY Indomethacin (Indocin), 1 TAB PO prn Lamotrigine (Lamictal), 100 MG PO QAM Magnesium Oxide (Mag-Ox), 400 MG PO HS Riboflavin (Vitamin B-2), 400 MG PO DAILY Scheduled PRN Acetaminophen (Acetaminophen Extra Stren), 1,000 MG PO DAILY PRN for Pain Cxbrogw-Rfheponcieimf-Phisczxm (Excedrin Migraine), 2 TABS PO prn ud PRN for Migraine Clonazepam (Klonopin), 1 MG PO BID PRN for Anxiety Diphenhydramine Hcl (Benadryl Allergy), 1 CAP PO HS PRN for Allergic Reaction Gabapentin (Neurontin), 100 MG PO PRN PRN for Migraine Ondasetron Odt (Zofran Odt), 4 MG SL Q6H PRN for Nausea Polyethylene Glycol 3350 (Miralax), 17 GM PO DAILY PRN for Constipation Allergies Coded Allergies: Ceftriaxone (Verified Allergy, Unknown, RASH ALL OVER BODY, 10/16/17) Ciprofloxacin (Verified Allergy, Unknown, ITCHING, FEVER, 10/16/17) Clindamycin (Verified Allergy, Unknown, ITCHING/BURNING, 10/16/17) Metoclopramide (Verified Adverse Reaction, Intermediate, panic attacks, 01/24) Prochlorperazine (Verified Adverse Reaction, Intermediate, panic attack, ) Sulfa Antibiotics (Verified Adverse Reaction, Intermediate, vomiting, 10/16) Physical Exam Vital Signs Date Time Temp Pulse Resp B/P (MAP) Pulse Ox O2 Delivery O2 Flow Rate FiO2 11/30/17 22:03 80 18 151/101 97 11/30/17 21:28 89 18 163/108 96 Room Air 11/30/17 19:23 88 20 154/107 97 Room Air 11/30/17 17:54 104 20 151/121 97 Room Air 11/30/17 17:42 101 11/30/17 15:40 37.4 110 20 171/108 98 Room Air Physical Exam GENERAL: alert, well appearing, well nourished, no distress, non-toxic EYE EXAM: normal conjunctiva, PERRL and EOM's grossly intact OROPHARYNX: no exudate, no erythema, lips, buccal mucosa, and tongue normal and mucous membranes are moist NECK: supple, no nuchal rigidity, no adenopathy, non-tender LUNGS: Clear to auscultation. Normal chest wall mechanics HEART: no murmurs, S1 normal and S2 normal ABDOMEN: abdomen soft, non-tender, normo-active bowel sounds, no masses, no rebound or guarding. BACK: Back is symmetrical on inspection and there is no deformity, no midline tenderness, no CVA tenderness. CHEST: Minimal tenderness along left chest wall and sternal border. SKIN: no rashes and no bruising UPPER EXTREMITIES: upper extremities are grossly normal. LOWER EXTREMITIES: No pitting edema. NEURO EXAM: Normal sensorium, cranial nerves II-XII grossly intact, normal speech, no gross weakness of arms, no gross weakness of legs. Medical Decision & Procedures ER Provider Diagnostic Interpretation: Radiology results have been interpreted by the radiologist and reviewed by me. CHEST ONE VIEW PORTABLE CLINICAL HISTORY: Atypical chest pain COMPARISON STUDY: 08/19/2017 FINDINGS: The cardiac and mediastinal contours are normal. There is no evidence of focal pulmonary consolidation. There is no evidence of failure. No pleural effusions are visualized. IMPRESSION: No active disease in the chest. Electronically signed by: Guy Bañuelos M.D. 11/30/2017 5:55 PM Radiology results have been interpreted by and reviewed by me. BEDSIDE ECHOCARDIOGRAM No pericardial effusion. Normal EF. No obvious wall motion abnormalities. Laboratory Results 11/30/17 17:40 Red Blood Count 4.22, Mean Corpuscular Volume 93.1, Mean Corpuscular Hemoglobin 30.1, Mean Corpuscular Hemoglobin Concent 32.3, Mean Platelet Volume 10.1, Neutrophils (%) (Auto) 56.6, Lymphocytes (%) (Auto) 37.1, Monocytes (%) (Auto) 4.8, Eosinophils (%) (Auto) 1.2, Basophils (%) (Auto) 0.2, Neutrophils # (Auto) 4.70, Lymphocytes # (Auto) 3.09, Monocytes # (Auto) 0.40, Eosinophils # (Auto) 0.10, Basophils # (Auto) 0.02 11/30/17 17:40 Test 11/30/17 17:25 11/30/17 17:40 11/30/17 18:31 Urine Color YELLOW Urine Appearance CLEAR (CLEAR) Urine pH 6.5 (4.5-7.5) Urine Specific [place] 1.014 (1.000-1.030) Urine Protein NEG (NEG) Urine Glucose (UA) NEG (NEG) Urine Ketones NEG (NEG) Urine Occult Blood NEG (NEG) Urine Nitrite NEG (NEG) Urine Bilirubin NEG (NEG) Urine Urobilinogen NEG (NEG) Urine Leukocyte Esterase NEG (NEG) White Blood Count 8.32 K/uL (4.8-10.8) Red Blood Count 4.22 M/uL (4.2-5.4) Hemoglobin 12.7 g/dL (12.0-16.0) Hematocrit 39.3 % (37-47) Mean Corpuscular Volume 93.1 fL (80-100) Mean Corpuscular Hemoglobin 30.1 pg (25-34) Mean Corpuscular Hemoglobin Concent 32.3 g/dl (32-36) Platelet Count 405 K/uL (130-400) Mean Platelet Volume 10.1 fL (7.4-10.4) Neutrophils (%) (Auto) 56.6 % Lymphocytes (%) (Auto) 37.1 % Monocytes (%) (Auto) 4.8 % Eosinophils (%) (Auto) 1.2 % Basophils (%) (Auto) 0.2 % Neutrophils # (Auto) 4.70 K/uL (1.4-6.5) Lymphocytes # (Auto) 3.09 K/uL (1.2-3.4) Monocytes # (Auto) 0.40 K/uL (0.11-0.59) Eosinophils # (Auto) 0.10 K/uL (0-0.5) Basophils # (Auto) 0.02 K/uL (0-0.2) RDW Standard Deviation 47.4 fL (36.4-46.3) RDW Coefficient of Variation 14.0 % (11.5-14.5) Immature Granulocyte % (Auto) 0.1 % Immature Granulocyte # (Auto) 0.01 K/uL (0.00-0.02) Anion Gap 10.0 mmol/L (3-11) Est Creatinine Clear Calc Drug Dose 108.2 ml/min Estimated GFR () 120.3 Estimated GFR (Non- 103.8 BUN/Creatinine Ratio 8.9 (10-20) Calcium Level 8.2 mg/dl (8.5-10.1) Magnesium Level 2.2 mg/dl (1.8-2.4) Total Bilirubin 0.3 mg/dl (0.2-1) Aspartate Amino Transf (AST/SGOT) 18 U/L (15-37) Alanine Aminotransferase (ALT/SGPT) 31 U/L (12-78) Alkaline Phosphatase 82 U/L (45-117) Troponin I < 0.015 ng/ml (0-0.045) Pro-B-Type Natriuretic Peptide 49 pg/ml (0-450) Total Protein 8.3 gm/dl (6.4-8.2) Albumin 4.0 gm/dl (3.4-5.0) Globulin 4.3 gm/dl (2.5-4.0) Albumin/Globulin Ratio 0.9 (0.9-2) Thyroid Stimulating Hormone (TSH) 1.890 uIu/ml (0.300-4.500) Human Chorionic Gonadotropin, Qual NEG (NEG) D-Dimer 200 ug/L FEU (0-500) Laboratory results per my review. Medications Administered Medications (Trade) Dose Ordered Sig/Radha Route Start Time Stop Time Status Last Admin Dose Admin Sodium Chloride 1,000 ml @ 999 mls/hr Q1H1M STAT IV 11/30/17 17:23 11/30/17 18:23 DC 11/30/17 17:23 999 MLS/HR Acetaminophen (Tylenol Tab) 1,000 mg NOW STAT PO 11/30/17 18:13 11/30/17 18:14 DC 11/30/17 18:20 1,000 MG Ketorolac Tromethamine (Toradol Inj) 30 mg NOW STAT IV 11/30/17 18:58 11/30/17 18:59 DC 11/30/17 19:10 30 MG Lidocaine (Lidoderm Patch 5%) 1 patch NOW STAT TD 11/30/17 18:58 11/30/17 18:59 DC 11/30/17 19:09 1 PATCH Al Hydroxide/Mg Hydroxide (Maalox Susp) 30 ml NOW STAT PO 11/30/17 20:16 11/30/17 20:18 DC 11/30/17 20:22 30 ML Famotidine (Pepcid 20mg Iv Push) 20 mg ONE STAT IV 11/30/17 20:16 11/30/17 20:18 DC 11/30/17 20:22 20 MG ECG Per My Interpretation Indication: chest pain Rate (beats per minute): 99 Rhythm: normal sinus Findings: no acute ischemic change, no ectopy, other (normal axis, normal intervals) ED Course 1713: The patient was evaluated in room B5. A complete history and physical exam was performed. 1723: NSS 1000 ml @ 999 mls/hr IV. 1812: Acetaminophen 1000 mg PO. 7: Nursing informed me the patient is complaining of a severe amount of pain. 1857: Lidocaine 1 patch 5% TD, Toradol 30 mg IV. 1944: I reevaluated the patient. She is still complaining of terrible pain. 2015: Famotidine 20 mg IV, Maalox Susp 30 ml PO. 2129: I reevaluated the patient. She is ready to go home. I discussed her results and discharge instructions and she verbalized complete understanding and agreement. Medical Decision Differential diagnoses includes but is not limited to acute coronary syndrome, myocardial infarction, pericarditis, pulmonary embolus, aortic dissection, pneumonia, pneumothorax, musculoskeletal, shingles, esophageal. Patient well known to the emergency room and has been here multiple times with various complaints. Patient presenting today with chest pain greater than 24 hours however worse today. Patient's labs and imaging here are reassuring. Patient hemodynamically stable throughout. I do not suspect ACS, tamponade, pericarditis, myocarditis, PE, pleural effusion, pneumonia, dissection or worsening aneurysm. I did discuss with patient the possibility of her stress and anxiety manifesting in physical symptoms. Patient does feel this is likely possible. Also discussed with her my concern for her eating disorder and encouraged her to seek a counselor or therapist and use additional on campus resources. Discussed with her that given her restricted eating and increased stress, she may also have component of gastritis or GERD which could contribute to chest pain and even lead to esophageal spasm. I do not suspect GI bleed or perforation. Patient stated she felt improved with medications, most notably with GI medications. Given patient's hx of drug-seeking behavior, she was not given any controlled substances including narcotics or benzodiazepines. Patient will appearing at time of discharge, imminent with a steady gait, tolerating sips of p.o., and felt improved. Patient verbalized understanding of all results, possible differential diagnosis, symptoms to watch and return for, need for close follow-up with her family doctor. Medication Reconcilliation Current Medication List: was personally reviewed by me Blood Pressure Screening Patient's blood pressure: Elevated blood pressure Blood pressure disposition: Elevated BP felt to be situational Impression Primary Impression: Chest pain Additional Impressions: Dyspnea Eating disorder Hypokalemia Scribe Attestation The scribe's documentation has been prepared under my direction and personally reviewed by me in its entirety. I confirm that the note above accurately reflects all work, treatment, procedures, and medical decision making performed by me. Departure Information Dispostion Home / Self-Care Referrals Noe Willett MD (PCP) Patient Instructions ED Chest Pain Atypical Unkn Cause, My [facility] Additional Instructions Please call follow-up with your family doctor. Please discussed with them your symptoms current medications. They may suggest additional testing including possible cardiology evaluation. If you develop worsening pain, increased trouble breathing, develop dizziness, fevers, vomiting, noticed black or bloody stools, you have any other new and concerning symptoms, please return the emergency room. Problem Qualifiers Primary Impression: Chest pain Chest pain type: unspecified Qualified Codes: R07.9 - Chest pain, unspecified Additional Impressions: Dyspnea Dyspnea type: unspecified Qualified Codes: R06.00 - Dyspnea, unspecified
[2017-11-30] MEDS ORDERED: ASPI-390 PO (17:51)
[2017-11-30] MEDS ORDERED: CYCL10TA6 PO (17:51)
[2017-11-30] MEDS ORDERED: DULO60CA44 PO (17:51)
[2017-11-30] MEDS ORDERED: INDO-22 PO (17:51)
[2017-11-30 17:57] LABS: BASO % 0.2 %; BASO ABS # 0.02 K/uL (0-0.2); EOS % 1.2 %; HEMATOCRIT 39.3 % (37-47); HEMOGLOBIN 12.7 g/dL (12.0-16.0); IG# 0.01 K/uL (0.00-0.02); LYMPH % 37.1 %; LYMPH ABS # 3.09 K/uL (1.2-3.4); MEAN CELL VOLUME 93.1 fL (80-100); MEAN CORPUSCULAR HEMOGLOBIN 30.1 pg (25-34); MEAN CORPUSCULAR HGB CONC 32.3 g/dl (32-36); MEAN PLATELET VOLUME 10.1 fL (7.4-10.4); MONO % 4.8 %; NEUT % 56.6 %; PLATELET COUNT 405 K/uL (130-400); RED CELL DISTRIBUTION WIDTH SD 47.4 fL (36.4-46.3); WHITE BLOOD COUNT 8.32 K/uL (4.8-10.8)
--- NOTE | 2017-11-30 17:57 | DIAGNOSTIC IMAGING REPORT ---
CHEST ONE VIEW PORTABLE CLINICAL HISTORY: Atypical chest pain COMPARISON STUDY: 08/19/2017 FINDINGS: The cardiac and mediastinal contours are normal. There is no evidence of focal pulmonary consolidation. There is no evidence of failure. No pleural effusions are visualized.[ IMPRESSION: No active disease in the chest. Electronically signed by: Guy Bañuelos M.D. 11/30/2017 5:55 PM Dictated Date/Time: 11/30/2017 5:55 PM
[2017-11-30] MEDS ORDERED: ACETAMINOPHEN 500 MG TAB PO STA (18:13)
[2017-11-30] MEDS ORDERED: VITB2100 PO (18:20)
[2017-11-30] MEDS ORDERED: MAGN400T6 PO (18:20)
[2017-11-30 18:28] LABS: ALKALINE PHOSPHATASE 82 U/L (45-117); ALT/SGPT 31 U/L (12-78); AST/SGOT 18 U/L (15-37); BLOOD UREA NITROGEN 7 mg/dl (7-18); CALCIUM 8.2 mg/dl (8.5-10.1); CARBON DIOXIDE 23 mmol/L (21-32); CREATININE 0.76 mg/dl (0.60-1.20); GLUCOSE 72 mg/dl (70-99); POTASSIUM 3.3 mmol/L (3.5-5.1); SODIUM 139 mmol/L (136-145); TOTAL PROTEIN 8.3 gm/dl (6.4-8.2)
[2017-11-30] MEDS ORDERED: KETOROLAC TROMETHAMINE 30 MG/ML VIAL IV STA (18:58)
[2017-11-30] MEDS ORDERED: LIDODERM (LIDOCAINE) PATCH 5% TD STA (18:58)
[2017-11-30] MEDS ORDERED: FAMOTIDINE 20MG/5ML IV PUSH IV STA (20:16)
[2017-11-30] MEDS ORDERED: ALUMINUM/MAGNESIUM SUSP 30 ML UDC PO STA (20:16)
[2017-11-30] MEDS ORDERED: ACET-1222 PO (21:17)
[2017-11-30] MEDS ORDERED: CYM/30 PO (21:26)
[2017-11-30] MEDS ORDERED: BCPILLS PO (22:02)
[2017-11-30 22:03] VITALS: BP 151/101; PULSE 80; O2SAT 97
[2017-11-30] MEDS ORDERED: POLY335019 PO (22:07)
[2017-11-30] MEDS ORDERED: CLON1TAB10 PO (22:56)
== END 2017-11-30 22:04 | disposition home or self-care (01) ==
LOC: C.EDB 15:35
DX: R07.9 Chest pain, unspecified (principal); R06.00 Dyspnea, unspecified; F50.9 Eating disorder, unspecified; E87.6 Hypokalemia; Z79.3 Long term (current) use of hormonal contraceptives; F41.9 Anxiety disorder, unspecified; M79.7 Fibromyalgia; Z87.442 Personal history of urinary calculi; F33.1 Major depressive disorder, recurrent, moderate; G25.81 Restless legs syndrome; Z79.899 Other long term (current) drug therapy; Z88.1 Allergy status to other antibiotic agents; Z88.2 Allergy status to sulfonamides; Z88.8 Allergy status to other drugs, medicaments and biological substances

== ENCOUNTER 2019-01-14 14:18 | Inpatient (IN) ==
[2019-01-14] MEDS ORDERED: methylPREDNISolone 125 MG/2 ML VIAL IV STA (14:26)
[2019-01-14] MEDS ORDERED: RACEPINEPHRINE 2.25% NEBU SOLN 0.5 ML VIAL NEB STA (14:26)
[2019-01-14] MEDS ORDERED: FAMOTIDINE 20MG IV PUSH 20 MG/5 ML SYR IV STA (14:26)
[2019-01-14] MEDS ORDERED: ALBUTEROL 0.083% NEBU SOLN 3 ML VIAL INH STA (14:26)
[2019-01-14] MEDS ORDERED: SODIUM CHLORIDE 0.9% 1000ML 1,000 ML IV SCH ×2 (14:30→18:58)
[2019-01-14] MEDS ORDERED: ALBUT/IPRATROP 3MG/0.5MG NEB 3 ML VIAL ONE (14:30)
[2019-01-14] MEDS ORDERED: ONDANSETRON INJ 2 MG/ML 2 ML VIAL IV STA ×2 (14:40→16:07)
[2019-01-14] MEDS ORDERED: DiphenhydrAMINE HCL 50 MG/ML VIAL IV STA (14:40)
[2019-01-14 14:52] LABS: Albumin Level 4.3 gm/dl (3.4-5.0); BUN Creatinine Ratio 8.3 (10-20); Calcium 9.4 mg/dl (8.5-10.1); Creatinine Clr Calc Pharmacy 87.6 ml/min; Est GFR (African American) 93.6; Est GFR (Non-African American) 80.8; Potassium 3.4 mmol/L (3.5-5.1)
[2019-01-14 14:54] LABS: Bilirubin,Total 0.2 mg/dl (0.2-1); Globulin 4.1 gm/dl (2.5-4.0); Total Protein 8.5 gm/dl (6.4-8.2)
--- NOTE | 2019-01-14 14:54 | XRay Report ---
XR chest 1V portable CLINICAL HISTORY: sob COMPARISON STUDY: 12/22/2018 FINDINGS: The cardiac and mediastinal contours are normal. There is no evidence of focal pulmonary co nsolidation. There is no evidence of failure. No pleural effusions are visualized.[ IMPRESSION: No active disease in the chest. Electronically signed by: Guy Bañuelos M.D. 01/14/2019 2:52 PM
[2019-01-14 15:16] LABS: Basophils # (auto) 0.03 K/uL (0-0.2); Basophils % (auto) 0.3 %; Eosinophils # (auto) 0.36 K/uL (0-0.5); Eosinophils % (auto) 3.5 %; Hematocrit (blood only) 43.2 % (37-47); Hemoglobin 14.1 g/dL (12.0-16.0); Immature Granulocytes # (auto) 0.02 K/uL (0.00-0.02); Immature Granulocytes % (auto) 0.2 %; Lymphocytes # (auto) 3.79 K/uL (1.2-3.4); Lymphocytes % (auto) 36.9 %; Mean Corpuscular Hemoglobin 32.3 pg (25-34); Mean Corpuscular Hgb Conc 32.6 g/dL (32-36); Mean Corpuscular Volume 99.1 fL (80-100); Mean Platelet Volume 9.9 fL (7.4-10.4); Monocytes # (auto) 0.61 K/uL (0.11-0.59); Monocytes % (auto) 5.9 %; Neutrophils # (auto) 5.47 K/uL (1.4-6.5); Neutrophils % (auto) 53.2 %; Platelet Count 496 K/uL (130-400); RDW Coefficient of Variation 13.1 % (11.5-14.5); RDW Standard Deviation 47.7 fL (36.4-46.3); Red Blood Count 4.36 M/uL (4.2-5.4); White Blood Count 10.28 K/uL (4.8-10.8)
[2019-01-14] MEDS ORDERED: KETOROLAC 30 MG/ML VIAL IV STA (15:27)
[2019-01-14] MEDS ORDERED: HYDROCODONE/HOMATROPINE SYRUP 5MG/1.5MG 5ML UDP PO STA (15:57)
[2019-01-14] MEDS ORDERED: HYDROmorphone INJ 0.5 MG/0.5 ML SYR IV STA ×2 (16:56→20:14)
[2019-01-14] MEDS ORDERED: PROMETHAZINE 12.5 MG/50.5 ML BAG IV STA (16:56)
--- NOTE | 2019-01-14 17:53 | Emergency Department Note ---
Entered by Mago Nieves acting as a scribe for History of Present Illness General Chief complaint: Allergic Reaction Stated complaint: ALLERGIC REACTION Time Seen by Provider: 01/14/19 14:26 Source: patient History of Present Illness Provider complaint: allergic reaction Onset (ago): minute(s) 20 Location: face and mouth Severity: severe Pain Consistency: + constant Maximum Pain Intensity: 6 Quality: + other (dryness, flush, SOB) Associated symptoms: + denies other symptoms Treatments prior to arrival: other (epinephrine) The patient is a 33 y/o female with a past medical history of childhood asthma, who presents to the emergency department for evaluation of a constant severe allergic reaction that began one hour ago. The patient states that she had lunch roughly 2 hours ago which she thought was cream cheese but was actually tofu which she has a known allergic reaction to. She notes that she used her EpiPen twenty minutes ago. The patient states she is currently short of breath, feels like her throat is dry, and her tongue feels like it is cracking, seeing spots, and flush. The patient reports that she had diarrhea last night but none today. She denies any other symptoms. She states her chest is all right but otherwise denies a rash. Home Medications Home Medications Medication Instructions Recorded Confirmed Type cetirizine 10 mg PO DAILY PRN 01/29/18 01/14/19 History clonazepam 1 mg PO BID PRN 01/29/18 01/14/19 History cyclobenzaprine 10 mg PO HS PRN 01/29/18 01/14/19 History duloxetine 60 mg PO QAM 01/29/18 01/14/19 History gabapentin 100 mg PO TID PRN 01/29/18 01/14/19 History lamotrigine [Lamictal] 100 mg PO QAM 01/29/18 01/14/19 History magnesium oxide 400 mg PO HS 01/29/18 01/14/19 History norgestrel-ethinyl estradiol 1 tab PO HS 01/29/18 01/14/19 History [Aman (28)] ondansetron 4 mg PO Q6H PRN 01/29/18 01/14/19 History cyanocobalamin (vitamin B-12) 1,000 mcg PO QAM 05/23/18 01/14/19 History [Vitamin B-12] duloxetine 30 mg PO QAM 05/23/18 01/14/19 History valacyclovir 1 g PO HS 05/23/18 01/14/19 History omeprazole magnesium [Prilosec OTC] 20 mg PO QAM 12/12/18 01/14/19 History acetaminophen [Tylenol Extra 100 mg PO QID PRN 12/22/18 01/14/19 History Strength] diphenhydramine HCl [Benadryl] 25 mg PO QID PRN 01/14/19 01/14/19 History docusate sodium 100 mg PO BID 01/14/19 01/14/19 History epinephrine [EpiPen] 0.3 mg IM UD PRN 01/14/19 01/14/19 History green tea leaf extract [Green Tea] 1 cap PO DAILY 01/14/19 01/14/19 History Allergies Allergy/AdvReac Type Severity Reaction Status Date / Time ciprofloxacin Allergy Intermediate ITCHING, Verified 01/14/19 15:02 FEVER clindamycin Allergy Intermediate ITCHING/BUR Verified 01/14/19 15:02 PATTIE Cipro Allergy Unknown ITCHING, Verified 12/07/17 00:43 FEVER soy Allergy Anaphylaxis Verified 01/14/19 15:02 metoclopramide AdvReac Intermediate panic Verified 01/14/19 15:02 attacks prochlorperazine AdvReac Intermediate panic Verified 01/14/19 15:02 attack Sulfa (Sulfonamide AdvReac Intermediate vomiting Verified 01/14/19 15:02 Antibiotics) Past Med/Surg History Medical History PID (pelvic inflammatory disease) History of kidney stones (Chronic) History of ovarian cyst (Chronic) Depression (Acute) Dysmenorrhea (Acute) Exploratory laparotomy scar Fibromyalgia History of deviated nasal septum History of small bowel obstruction Major depressive disorder, recurrent, moderate Migraine (Chronic) Migraine without aura (Acute) Ovarian cyst Postoperative lower abdominal pain (Acute) Recurrent nephrolithiasis Recurrent sinusitis Restless leg syndrome Surgical History H/O lithotripsy H/O wisdom tooth extraction S/P laparoscopy (Acute) Ureterostomy status Family History Other Family history non-contributory Social History Preferred Language: [place] marital status: Single Current Living Situation: Alone current occupational status: student Feels Safe at Home: Yes Smoking Status: Current every day smoker Review of Systems See HPI for pertinent positives & negatives. and A total of 10 systems reviewed and were otherwise negative Physical Exam Vital Signs Vital Signs - 24 hr 01/14/19 14:22 01/14/19 14:26 01/14/19 14:27 Temperature 37.4 C Temperature Source Oral Sepsis Recent Fever Within 48 Hours No Sepsis New/Unexplained Change in Mental Status No Sepsis Action Taken by Nursing No Action Required Pulse Rate 122 H Pulse Rate [Right Radial] Respiratory Rate 38 H Respiratory Effort / Characteristics Spontaneous Spontaneous Respiratory Depth Shallow Respiratory Pattern Blood Pressure 186/99 H Blood Pressure [Right Arm] Blood Pressure Mean 128 Blood Pressure Mean [Right Arm] Pulse Oximetry 99 100 Oxygen Delivery Method Room Air Room Air Room Air Oxygen Flow Rate 01/14/19 14:32 01/14/19 14:48 01/14/19 16:23 Temperature Temperature Source Sepsis Recent Fever Within 48 Hours Sepsis New/Unexplained Change in Mental Status Sepsis Action Taken by Nursing Pulse Rate Pulse Rate [Right Radial] 116 H 125 H 110 H Respiratory Rate 18 18 19 Respiratory Effort / Characteristics Non-Labored Spontaneous Spontaneous Non-Labored Respiratory Depth Normal Normal Respiratory Pattern Regular Blood Pressure Blood Pressure [Right Arm] 169/88 H 163/100 H Blood Pressure Mean Blood Pressure Mean [Right Arm] 115 121 Pulse Oximetry 96 98 98 Oxygen Delivery Method Nasal Cannula Room Air Room Air Oxygen Flow Rate 3 Constitutional: Vital signs reviewed. Eyes: Pupils are equal round reactive to light. Conjunctiva are noninjected. ENT: Pharynx is clear without erythema or exudate. Mucous membranes are moist. Neck supple without meningeal signs. No swelling to tongue or uvula. Respiratory: Clear to auscultation bilaterally. Breath sounds are equal bilaterally. No wheezing or strider. Cardiovascular: Tachycardic rate and rhythm. No rubs or gallops. GI: Soft, nondistended and nontender. Bowel sounds are present. Musculoskeletal: No peripheral edema. Left foot in walking boot. Integumentary: No cyanosis. Redness to anterior chest. Neurological: The patient is awake and alert. No focal deficits. Psychiatric: Anxious. Course 1420: Past medical records reviewed. The patient was evaluated in room A01. A complete history and physical exam was performed. 1455: I checked on the patient, she is feeling better. Her lungs are clear. 1527: I reevaluated the patient and she has reproducible sharp chest pain from the coughing. She will get some Toradol. 1558: I checked on the patient she is having another coughing fit. Lungs are clear. She also notes she is not allergic to hydrocodone. 1656: I checked on the patient. She notes she threw up all the medication she was given. I suggested hospitalization and she was agreeable. She recommended that she be treated with dilaudid because she is not allergic to it. 1658: I spoke with Chantel Ramirez for Dr.Sumner Barcenas Hospitalist. She will evaluate for further management. Administered Medications Discontinued Medications Albuterol (Ventolin 0.083% 2.5mg/3ml) 2.5 mg INH NOW STA Stop: 01/14/19 14:27 Last Admin: 01/14/19 15:41 Dose: Not Given Documented by: [id number] Albuterol (Duoneb) Confirm Administered Dose 3 ml .ROUTE .ST-MED ONE Stop: 01/14/19 14:31 Last Admin: 01/14/19 15:40 Dose: Not Given Documented by: [id number] Diphenhydramine HCl (Benadryl Capsule) 50 mg PO NOW STA Stop: 01/14/19 14:27 Last Admin: 01/14/19 14:42 Dose: Not Given Documented by: [id number] Diphenhydramine HCl (Benadryl) 50 mg IV NOW STA Stop: 01/14/19 14:41 Last Admin: 01/14/19 14:44 Dose: 50 mg Documented by: [id number] Epinephrine (Raccemic Epinephrine 2.25% 0.5ml) 0.5 ml NEB NOW STA Stop: 01/14/19 14:27 Last Admin: 01/14/19 15:28 Dose: 0.5 ml Documented by: [id number] Hydrocodone Bit/Homatropine Methylb (Hycodan) 5 ml PO NOW STA Stop: 01/14/19 15:58 Last Admin: 01/14/19 16:22 Dose: 5 ml Documented by: [id number] Hydromorphone HCl (Dilaudid) 0.5 mg IV NOW STA Stop: 01/14/19 16:57 Last Admin: 01/14/19 17:27 Dose: 0.5 mg Documented by: [id number] Famotidine (Pepcid 20mg Iv Push) 20 mg in 5 mls @ 2.5 mls/min IV NOW STA Stop: 01/14/19 14:27 Last Admin: 01/14/19 14:37 Dose: 2.5 mls/min Documented by: [id number] Sodium Chloride (Nss 1000ml) 1,000 mls @ 999 mls/hr IV .Q1H1M CHEMA Stop: 01/14/19 15:30 Last Infusion: 01/14/19 15:50 Dose: 0 mls/hr Documented by: [id number] Admin: 01/14/19 14:37 Dose: 999 mls/hr Documented by: [id number] Promethazine HCl (Phenergan) 12.5 mg in 50.5 mls @ 202 mls/hr IV NOW STA Stop: 01/14/19 17:10 Last Infusion: 01/14/19 17:41 Dose: 0 mls/hr Documented by: [id number] Admin: 01/14/19 17:26 Dose: 202 mls/hr Documented by: [id number] Ketorolac Tromethamine (Toradol) 10 mg IV NOW STA Stop: 01/14/19 15:28 Last Admin: 01/14/19 15:33 Dose: 10 mg Documented by: [id number] Methylprednisolone (Solumedrol) 125 mg IV NOW STA Stop: 01/14/19 14:27 Last Admin: 01/14/19 14:37 Dose: 125 mg Documented by: [id number] Ondansetron HCl (Zofran) 4 mg IV NOW STA Stop: 01/14/19 14:41 Last Admin: 01/14/19 14:44 Dose: 4 mg Documented by: [id number] Ondansetron HCl (Zofran) 4 mg IV NOW STA Stop: 01/14/19 16:08 Last Admin: 01/14/19 16:10 Dose: 4 mg Documented by: [id number] Medical Decision Making Differential Diagnosis Differential Diagnosis: anaphylaxis ,allergic reaction, angioedema, broncho spasm, panic attack Medical Records Attestation: I reviewed the patient's medical records. Patient was seen here December 22 for flu like symptoms and diagnosed with migraine and gastroenteritis. Home Medications Current Medication List: was personally reviewed by me Laboratory Data Attestation: I reviewed the patient's lab results. Result diagrams: 01/14/19 14:25 01/14/19 14:25 Lab Results 01/14/19 01/14/19 Range/Units 14:25 14:25 WBC 10.28 (4.8-10.8) K/uL RBC 4.36 (4.2-5.4) M/uL Hgb 14.1 (12.0-16.0) g/dL Hct 43.2 (37-47) % MCV 99.1 (80-100) fL MCH 32.3 (25-34) pg MCHC 32.6 (32-36) g/dL RDW Std Deviation 47.7 H (36.4-46.3) fL RDW Coeff of Ede 13.1 (11.5-14.5) % Plt Count 496 H (130-400) K/uL MPV 9.9 (7.4-10.4) fL Immature Gran % (Auto) 0.2 % Neut % (Auto) 53.2 % Lymph % (Auto) 36.9 % [place] % (Auto) 5.9 % Eos % (Auto) 3.5 % Baso % (Auto) 0.3 % Immature Gran # (Auto) 0.02 (0.00-0.02) K/uL Neut # (Auto) 5.47 (1.4-6.5) K/uL Lymph # (Auto) 3.79 H (1.2-3.4) K/uL [place] # (Auto) 0.61 H (0.11-0.59) K/uL Eos # (Auto) 0.36 (0-0.5) K/uL Baso # (Auto) 0.03 (0-0.2) K/uL Absolute Nucleated RBC 0.00 (0-0) K/uL Nucleated RBC % (auto) 0.0 % Sodium 138 (136-145) mmol/L Potassium 3.4 L (3.5-5.1) mmol/L Chloride 105 (98-107) mmol/L Carbon Dioxide 22 (21-32) mmol/L Anion Gap 11.0 (3-11) BUN 8 (7-18) mg/dl Creatinine 0.93 (0.6-1.2) mg/dl Est Cr Clr Drug Dosing 87.6 ml/min Est GFR ( Amer) 93.6 Est GFR (Non-Af Amer) 80.8 BUN/Creatinine Ratio 8.3 L (10-20) Glucose 90 (70-99) mg/dl Calcium 9.4 (8.5-10.1) mg/dl Total Bilirubin 0.2 (0.2-1) mg/dl AST 17 (15-37) U/L ALT 33 (12-78) U/L Alkaline Phosphatase 90 (45-117) U/L Total Protein 8.5 H (6.4-8.2) gm/dl Albumin 4.3 (3.4-5.0) gm/dl Globulin 4.1 H (2.5-4.0) gm/dl Albumin/Globulin Ratio 1.0 (0.9-2) Imaging Data Radiologist's Impression: Radiology results as stated below per my review and the radiologist's interpretation: XR chest 1V portable CLINICAL HISTORY: sob COMPARISON STUDY: 12/22/2018 FINDINGS: The cardiac and mediastinal contours are normal. There is no evidence of focal pulmonary consolidation. There is no evidence of failure. No pleural effusions are visualized.[ IMPRESSION: No active disease in the chest. Electronically signed by: Guy Bañuelos M.D. 01/14/2019 2:52 PM ECG Data Attestation: I personally reviewed and interpreted this ECG as follows: Indication: chest pain Rate (beats per minute): 88 Rhythm: normal sinus Findings: no PVC and no ST elevation Blood Pressure Blood Pressure Findings: Elevated blood pressure Blood Pressure Disposition: further management by hospitalist [facility] Narrative I did evaluate the patient as noted above. The patient has a known soy allergy and ate tofu at a buffet thinking it was cream cheese. She appears to have developed an anaphylactic reaction. She is gave herself IM epinephrine prior to arrival. She is having difficulty breathing currently and coughing profusely. IV access was established. The patient was placed on a continuous shelter monitor. I did treat her with a racemic epi nebulizer as well as a DuoNeb. She was also given Solu-Medrol, Benadryl and Pepcid IV. I did order and personally reviewed the images of the patient's chest x-ray as described above. Chest x- ray does not show any acute process. I did order and review the patient's blood work as noted in the electronic medical record. Electrolytes are unremarkable other than mild hypokalemia. CBC is unremarkable other than a platelet count of 496. I did reassess the patient several times. She had improvement of her symptoms initially but then she developed vomiting and coughing fits. I did try to treat her with Zofran and Hycodan. She drip the Hycodan despite being given Zofran. She complained of worsening chest pain. Her chest pain is sharp and reproducible. It developed after she started having coughing fits. She did not have chest pain prior to that. I did order and personally review the patient's 12-lead EKG as described above. She has no acute ischemia. Given her persistent symptoms I did recommend hospitalization. She did request IV Dilaudid and states she is not allergic to it. I did treat her with IV Dilaudid 0.5 mg and Phenergan IV. I did discuss case with the hospitalist and rehabilitation caseworker. Impression & Plan Anaphylaxis, Intractable vomiting, Acute chest pain Critical Care Time Total Critical Care Time: 35 I have personally spent approximately 35 minutes of critical care time in the direct management of this patient. This includes bedside care, interpretation of diagnostic studies, and testing, discussion with consultants, patient, and family members, and other required patient management activities. These minutes are in excess of all separately billable procedures. Discharge Plan Visit Data Chief Complaint: Allergic Reaction Stated Complaint: ALLERGIC REACTION ED Provider: aTno Reid Discharge Problem: Anaphylaxis, Intractable vomiting, Acute chest pain Patient Disposition: Being Evaluated by Hospitalist Forms Stand Alone Forms: My [facility] Prescriptions Prescriptions: No Action valacyclovir 1 gram tablet 1 g PO HS RF: 0 duloxetine 30 mg capsule,delayed release(DR/EC) 30 mg PO QAM RF: 0 cyanocobalamin (vitamin B-12) [Vitamin B-12] 1,000 mcg Tablet 1,000 mcg PO QAM RF: 0 acetaminophen [Tylenol Extra Strength] 500 mg Tablet 100 mg PO QID PRN (Reason: Pain) RF: 0 diphenhydramine HCl [Benadryl] 25 mg Capsule 25 mg PO QID PRN (Reason: Itching) RF: 0 docusate sodium 100 mg Capsule 100 mg PO BID RF: 0 Green Tea Capsule 1 cap PO DAILY RF: 0 epinephrine [EpiPen] 0.3 mg/0.3 mL auto-injector 0.3 mg IM UD PRN (Reason: Allergic Reaction) RF: 0 cyclobenzaprine 10 mg Tablet 10 mg PO HS PRN (Reason: Migraine Headache) RF: 0 [place] (28) 0.3-30 mg-mcg tablet 1 tab PO HS RF: 0 cetirizine 10 mg tablet 10 mg PO DAILY PRN (Reason: Allergy Symptoms) RF: 0 clonazepam 1 mg Tablet 1 mg PO BID PRN (Reason: Anxiety) RF: 0 duloxetine 60 mg Capsule,Delayed Release(Dr/Ec) 60 mg PO QAM RF: 0 ondansetron 4 mg Tablet,Disintegrating 4 mg PO Q6H PRN (Reason: Nausea) RF: 0 lamotrigine [Lamictal] 100 mg Tablet 100 mg PO QAM RF: 0 magnesium oxide 400 mg magnesium Tablet 400 mg PO HS RF: 0 gabapentin 100 mg Capsule 100 mg PO TID PRN (Reason: Migraine Headache) RF: 0 Prilosec OTC 20 mg Tablet,Delayed Release (Dr/Ec) 20 mg PO QAM RF: 0 Referrals Referrals: Noe Willett MD [Primary Care Provider] - Discharge Problem: Anaphylaxis Qualifiers: Encounter type: initial encounter Qualified Code(s): T78.2XXA - Anaphylactic shock, unspecified, initial encounter Intractable vomiting Qualifiers: Vomiting type: unspecified Nausea presence: with nausea Qualified Code(s): R11.2 - Nausea with vomiting, unspecified The scribe's documentation has been prepared under my direction and personally reviewed by me in its entirety. I confirm that the note above accurately reflects all work, treatment, procedures, and medical decision making performed by me.
--- NOTE | 2019-01-14 18:09 | History & Physical Report ---
Date of Service January 14, 2019 Assessment & Plan (1) Anaphylaxis: Pt with history of soy allergy presented to ER today after eating sushi with suspected tofu with complaints of tongue edema, lip paresthesias, red rash to chest, shortness of breath, vomiting. Patient gave herself epinephrine prior to arrival. In ER patient was found to be short of breath. Patient afebrile, P: 122 down to 110, RR: 38 down to 19, BP: 186/99, 99% on room air -In ER patient given Pepcid IV, Benadryl 50 mg p.o., Solu-Medrol and 25 mg IV, 1L NSS, racemic epinephrine nebulizer, DuoNeb, Zofran, Toradol, Hycodan -Currently patient in no respiratory distress, has some residual intermittent cough, no lip, tongue, uvular edema, no current rash or urticaria -Continue Zyrtec -Pepcid IV twice daily, IVF, DuoNebs -Epinephrine IM as needed anaphylaxis -Monitor closely (2) Elevated blood pressure reading: Probable situational -Monitor BP (3) Migraine: Chronic migraine -Continue Lamictal, continue Flexeril and gabapentin as needed (4) Depression: (5) Anxiety: -Continue duloxetine, Lamictal, continue Klonopin as needed (6) Chronic constipation: -Continue docusate DVT Prophylaxis -SCDs Follows with Dr Willett for routine care Pt was seen and care coordinated with Dr Azevedo. See addendum History of Present Illness Chief Complaint: Allergic reaction Primary Care Provider: Noe Willett MD Pt is 33 y/o F with PMH soy allergy, migraine GUADALUPE, depression, anxiety, fibromyalgia, chronic constipation presented to ER with c/o allergic reaction. Reported at [facility] at 1330. At 1400 developed red rash to chest, tongue edema, paresthesias of lips, SOB, and vomiting. She gave herself epinephrine injection and presented to ER. Upon ER presentation pt states was SOB, coughing. Since being in ER has intermittent cough and reports chest wilson when coughs but no further SOB. Vomiting has since resolved. She reports hx mild reaction to soy in past requiring ER evaluation and several hour observation in past. Denies fever/chills, diaphoresis, diarrhea, constipation, GUADALUPE, dizziness, syncope, vision changes, neck pain, orthopnea, palpitations, cough, sore throat, choking, otalgia, rhinorrhea, abdominal pain, paresthesias, weakness, extremity weakness, extremity edema, rashes, urinary symptoms. Allergies Allergy/AdvReac Type Severity Reaction Status Date / Time ciprofloxacin Allergy Intermediate ITCHING, Verified 01/14/19 15:02 FEVER clindamycin Allergy Intermediate ITCHING/BUR Verified 01/14/19 15:02 PATTIE Cipro Allergy Unknown ITCHING, Verified 12/07/17 00:43 FEVER soy Allergy Anaphylaxis Verified 01/14/19 15:02 metoclopramide AdvReac Intermediate panic Verified 01/14/19 15:02 attacks prochlorperazine AdvReac Intermediate panic Verified 01/14/19 15:02 attack Sulfa (Sulfonamide AdvReac Intermediate vomiting Verified 01/14/19 15:02 Antibiotics) Home Medications Home Medications Medication Instructions Recorded Confirmed Type cetirizine 10 mg PO DAILY PRN 01/29/18 01/14/19 History clonazepam 1 mg PO BID PRN 01/29/18 01/14/19 History cyclobenzaprine 10 mg PO HS PRN 01/29/18 01/14/19 History duloxetine 60 mg PO QAM 01/29/18 01/14/19 History gabapentin 100 mg PO TID PRN 01/29/18 01/14/19 History lamotrigine [Lamictal] 100 mg PO QAM 01/29/18 01/14/19 History magnesium oxide 400 mg PO HS 01/29/18 01/14/19 History norgestrel-ethinyl estradiol 1 tab PO HS 01/29/18 01/14/19 History [Aman (28)] ondansetron 4 mg PO Q6H PRN 01/29/18 01/14/19 History cyanocobalamin (vitamin B-12) 1,000 mcg PO QAM 05/23/18 01/14/19 History [Vitamin B-12] duloxetine 30 mg PO QAM 05/23/18 01/14/19 History valacyclovir 1 g PO HS 05/23/18 01/14/19 History omeprazole magnesium [Prilosec OTC] 20 mg PO QAM 12/12/18 01/14/19 History acetaminophen [Tylenol Extra 100 mg PO QID PRN 12/22/18 01/14/19 History Strength] diphenhydramine HCl [Benadryl] 25 mg PO QID PRN 01/14/19 01/14/19 History docusate sodium 100 mg PO BID 01/14/19 01/14/19 History epinephrine [EpiPen] 0.3 mg IM UD PRN 01/14/19 01/14/19 History green tea leaf extract [Green Tea] 1 cap PO DAILY 01/14/19 01/14/19 History Past Med/Surg History Medical History Chronic constipation (Chronic) Anxiety (Chronic) PID (pelvic inflammatory disease) History of kidney stones (Chronic) History of ovarian cyst (Chronic) Depression (Chronic) Dysmenorrhea (Acute) Exploratory laparotomy scar Fibromyalgia History of deviated nasal septum History of small bowel obstruction Major depressive disorder, recurrent, moderate Migraine (Chronic) Migraine without aura (Resolved) Ovarian cyst Postoperative lower abdominal pain (Acute) Recurrent nephrolithiasis Recurrent sinusitis Restless leg syndrome Surgical History History of cholecystectomy (Chronic) H/O sinus surgery (Chronic) History of tonsillectomy and adenoidectomy (Chronic) H/O lithotripsy H/O wisdom tooth extraction S/P laparoscopy (Acute) Ureterostomy status Family History Other Family history non-contributory Social History Preferred Language: Turkish Communication Ability: Effective Beliefs That Will Affect Care: None marital status: Single Current Living Situation: Other Current Living Situation Comment: Live with roomates current occupational status: student Feels Safe at Home: Yes Safety Concerns: Feels Safe At This Time Smoking Status: Former smoker Tobacco Type: cigarettes ; Hx Alcohol Use: No Hx Substance Use: No Review of Systems Review of Systems: All systems reviewed & are unremarkable except as noted in HPI & below Physical Exam Physical Exam: General: no current distress, WDWN Head: normocephalic, atraumatic Eyes: PERRL, EOM's intact, conjunctiva non-injected, anicteric ENT: normal inspection external ears, nose, no uvula or tongue or lip edema, mucous membranes moist Neck: supple, trachea midline, non-tender Lungs: clear, no respiratory distress, no wheezing/rhonchi/rales CV: RRR, no murmur, no pretibial edema Abd: normal BS, soft, non-tender Ext: no cyanosis, no calf tenderness Neuro: A&O x 3, no focal deficits noted, normal affect Skin: warm, dry, no current rash or urticaria Results & Data Vital Signs (Past 12 Hours) Vital Signs Temp Pulse Pulse Resp BP BP Pulse Ox 01/14/19 16:23 110 H 19 163/100 H 98 01/14/19 14:48 125 H 18 169/88 H 98 01/14/19 14:32 116 H 18 96 01/14/19 14:27 100 01/14/19 14:26 37.4 C 122 H 38 H 186/99 H 99 Laboratory Results Short CBC 01/14/19 Range/Units 14:25 WBC 10.28 (4.8-10.8) K/uL Hgb 14.1 (12.0-16.0) g/dL Hct 43.2 (37-47) % Plt Count 496 H (130-400) K/uL BMP 01/14/19 14:25 Sodium 138 Potassium 3.4 L Chloride 105 Carbon Dioxide 22 BUN 8 Creatinine 0.93 Glucose 90 Calcium 9.4 Liver Function 01/14/19 Range/Units 14:25 Total Bilirubin 0.2 (0.2-1) mg/dl AST 17 (15-37) U/L ALT 33 (12-78) U/L Alkaline Phosphatase 90 (45-117) U/L Albumin 4.3 (3.4-5.0) gm/dl Diagnostic Findings CXR: IMPRESSION: No active disease in the chest. Code Status & VTE Plan VTE Prophylaxis Plan VTE Prophylaxis will be ordered: Yes Supervising Physician Co-Signing Physician Notes I have seen and examined the patient and have discussed the case with the provider above. I agree with the assessment and plan as stated with the following exceptions. 33-year-old patient who suffered an anaphylactic reaction to soy today after eating tofu accidentally is recovering after epinephrine administration. She is still reporting a sore throat and blood pressure is up. She is self reported to be "neurotic" and is hypervigilant about everything being given to her and done for her here in the hospital. There is a certain amount of anxiety demonstrated and she is on clonazepam at home. Clinically, she is doing well. Physical exam reveals a patient in no acute distress who is mentating normally. She has no respiratory distress at rest but on upon breathing deep, she is triggered to cough and reports pain. She has no tongue or lip swelling that is evident there is no other oropharyngeal abnormality seen. There are no rashes or urticaria present on her skin. She has multiple requests including symptom therapy with IV Dilaudid, IV Benadryl, Phenergan and IV fluids. All requests were accommodated and she will continue to be monitored closely on telemetry overnight. Will monitor blood pressure response to symptom therapy. DO Roberto Carlos (1) Anaphylaxis Encounter type: initial encounter Qualified Code(s): T78.2XXA - Anaphylactic shock, unspecified, initial encounter (2) Migraine Intractability: not intractable Migraine type: unspecified Status migrainos us presence: without status migrainosus Qualified Code(s): G43.909 - Migraine, unspecified, not intractable, without status migrainosus
[2019-01-14] MEDS ORDERED: GABAPENTIN 100 MG CAP PO PRN (18:58)
[2019-01-14] MEDS ORDERED: ONDANSETRON INJ 2 MG/ML 2 ML VIAL IV PRN (18:58)
[2019-01-14] MEDS ORDERED: ACETAMINOPHEN 325 MG TAB PO PRN (18:58)
[2019-01-14] MEDS ORDERED: EPINEPHrine INJ 1 MG/ML AMP IM PRN (18:58)
[2019-01-14] MEDS ORDERED: ALBUT/IPRATROP 3MG/0.5MG NEB 3 ML VIAL NEB SCH (19:00)
[2019-01-14] MEDS ORDERED: CYCLOBENZAPRINE HCL 10 MG TAB PO PRN (19:30)
[2019-01-14] MEDS ORDERED: DiphenhydrAMINE HCL 50 MG/ML VIAL IV SCH (20:00)
[2019-01-14] MEDS ORDERED: HYDROmorphone INJ 0.5 MG/0.5 ML SYR IV PRN (20:20)
[2019-01-14] MEDS ORDERED: ALBUT/IPRATROP 3MG/0.5MG NEB 3 ML VIAL NEB PRN (20:21)
[2019-01-14] MEDS: DiphenhydrAMINE HCL 50 MG/ML VIAL IV PRN (21:53)
[2019-01-14] MEDS: VALACYCLOVIR HCL 500 MG TABLET PO SCH (21:56)
[2019-01-14] MEDS: FAMOTIDINE 20 MG in SYRINGE 3 ML IV SCH (21:56)
[2019-01-14] MEDS: MAGNESIUM OXIDE 400 MG TAB PO SCH (21:57)
[2019-01-14] MEDS: DOCUSATE SODIUM 100 MG CAP PO SCH (21:57)
[2019-01-14] MEDS ORDERED: methylPREDNISolone 40 MG in SYRINGE 0 ML IV SCH (22:00)
[2019-01-14] MEDS ORDERED: HydrALAZINE HCL 20 MG/ML VIAL IV STA (22:18)
[2019-01-14] MEDS: TRAMADOL HCL 50 MG TABLET PO PRN (22:35)
[2019-01-14] MEDS: PROMETHAZINE HCL 12.5 MG/10 ML UDP PO PRN (23:03)
[2019-01-14] MEDS ORDERED: cloNIDine HCL 0.1 MG TAB PO ONE (23:27)
[2019-01-15] MEDS ORDERED: HYDROmorphone INJ 0.5 MG/0.5 ML SYR IV STA (00:55)
[2019-01-15] MEDS ORDERED: Nursing to Pharmacy Communication ONE (01:00)
[2019-01-15] MEDS: DiphenhydrAMINE HCL 50 MG/ML VIAL IV PRN (03:53)
[2019-01-15] MEDS ORDERED: INFLUENZA VIRUS QUAD VACCINE 0.5 ML SYR IM ONE (06:15)
[2019-01-15] MEDS ORDERED: INFLUENZA ADMINISTRATION CHARGE ONE (06:15)
[2019-01-15 06:41] LABS: Hematocrit (blood only) 34.7 % (37-47); Hemoglobin 11.3 g/dL (12.0-16.0); Mean Corpuscular Hgb Conc 32.6 g/dL (32-36); Mean Corpuscular Volume 98.3 fL (80-100); Mean Platelet Volume 9.6 fL (7.4-10.4); Platelet Count 371 K/uL (130-400); RDW Coefficient of Variation 13.3 % (11.5-14.5); RDW Standard Deviation 47.6 fL (36.4-46.3); Red Blood Count 3.53 M/uL (4.2-5.4); White Blood Count 11.47 K/uL (4.8-10.8)
[2019-01-15 07:12] LABS: BUN Creatinine Ratio 7.3 (10-20); Calcium 8.4 mg/dl (8.5-10.1); Creatinine Clr Calc Pharmacy 107.9 ml/min; Est GFR (African American) 123.4; Est GFR (Non-African American) 106.4; Potassium 3.6 mmol/L (3.5-5.1)
[2019-01-15] MEDS: CETIRIZINE HCL 10 MG TABLET PO SCH (08:14)
[2019-01-15] MEDS: lamoTRIgine 100 MG TAB PO SCH (08:14)
[2019-01-15] MEDS: DOCUSATE SODIUM 100 MG CAP PO SCH ×2 (08:14→20:57)
[2019-01-15] MEDS: CYANOCOBALAMIN 500 MCG TABLET (VITAMIN B-12) PO SCH (08:15)
[2019-01-15] MEDS: PANTOprazole 40 MG TAB PO SCH (08:15)
[2019-01-15] MEDS: DULOXETINE HCL 30 MG CAP PO SCH (08:17)
[2019-01-15] MEDS ORDERED: DULOXETINE HCL 60 MG CAP PO SCH (09:00)
[2019-01-15] MEDS ORDERED: DiphenhydrAMINE HCL 50 MG/ML VIAL IV STA (09:00)
[2019-01-15] MEDS: FAMOTIDINE 20 MG in SYRINGE 3 ML IV SCH (09:22)
[2019-01-15] MEDS ORDERED: methylPREDNISolone 4 MG TAB, 6 DAY TAPER PO SCH (10:30)
[2019-01-15] MEDS: GUAIFENESIN/DEXTROM SYRUP 100MG/10MG 5ML UDC PO PRN ×2 (11:06→17:54)
[2019-01-15] MEDS: methylPREDNISolone 4 MG TAB PO SCH ×4 (11:07→20:59)
[2019-01-15] MEDS: carvediloL 6.25 MG TAB PO SCH ×2 (11:08→20:58)
[2019-01-15] MEDS: TRAMADOL HCL 50 MG TABLET PO PRN (11:16)
[2019-01-15] MEDS ORDERED: OXYCODONE/ACETAMINOPHEN 5mg/325mg TAB PO ONE (12:11)
--- NOTE | 2019-01-15 12:58 | Hospitalist Progress Note ---
Date of Service January 15, 2019 Assessment & Plan (1) Anaphylaxis: Pt with history of soy allergy presented to ER today after eating sushi with suspected tofu with complaints of tongue edema, lip paresthesias, red rash to chest, shortness of breath, vomiting. Patient gave herself epinephrine prior to arrival. -Afebrile, initially tachycardic and tachypneic but both have resolved. BP: 186/99, 99% on room air -In ER patient given Pepcid IV, Benadryl 50 mg p.o., Solu-Medrol and 25 mg IV, 1L NSS, racemic epinephrine nebulizer, DuoNeb, Zofran, Toradol, Hycodan -Currently patient in no respiratory distress, has some residual intermittent cough, no lip, tongue, uvular edema, no current rash or urticaria -Continue Zyrtec, Benadryl PRN, pain control -Epinephrine IM as needed anaphylaxis -Monitor closely (2) Elevated blood pressure reading: Baseline BP 150s/90s per patient. Has been ~160/100 today -Added Coreg 6.25mg BID -Continue to monitor BP and consider adding additional agent in AM (3) Migraine: Chronic migraine -Continue Lamictal, continue Flexeril and gabapentin as needed (4) Depression: (5) Anxiety: -Continue duloxetine, Lamictal, continue Klonopin as needed (6) Chronic constipation: Has not had a BM since arrival. Continue docusate, add Senna DVT Prophylaxis -SCDs Follows with Dr. Willett for routine care Pt was seen and care coordinated with Dr. Joshua. See addendum Supervising Physician Co-Signing Physician Notes Patient is seen and examined at bedside. States having dry cough with associated chest discomfort, also complains of generalized itching. Denies any shortness of breath, dysphagia. Blood pressure remains elevated. On exam patient is moderately built and nourished, no apparent distress, normocephalic atraumatic, lungs are clear to auscultation, S1-S2, no murmur, abdomen soft nontender, grossly no focal neurological deficits, no pedal edema. Will start on Medrol Dosepak for anaphylaxis. Agree with adding Coreg for her blood pressure control. Added nicotine patch for tobacco use disorder. Agree with rest of the above management. I personally reviewed the record. Patient is interviewed and examined at bedside. Patient's care is coordinated with Maral Mcguire PA-C. Please refer to the documentation above for details of patient's presentation and for discussion of other issues. Subjective Seen and examined in 237-1. Patient endorsing dry cough with pleuritic pain and some itching. Rash no longer present. No shortness or breath or respiratory distress. No chest pain. No longer experiencing lip or tongue swelling. Discussed plans for medication changes to me made today as well as at time of discharge. Denies fever, chills, headache, lightheadedness, palpitations, abdominal pain, nausea, vomiting, dysuria or diarrhea. Review of Systems Review of Systems: At least ten systems reviewed and negative except as noted in the HPI. Physical Exam Physical Exam: General Appearance: WD/WN, vitals as above, NAD, sitting up in bed, pleasant, conversing easily, + anxious Head: normocephalic, atraumatic Eyes: normal inspection, PERRL, conjunctivae normal, anicteric sclerae ENT: external ear and nose normal, oropharynx normal Neck: trachea midline, no thyromegaly normal visual inspection Respiratory: lungs clear to auscultation, no wheeze, rales, rhonchi. Normal insp/exp effort, no accessory muscle use Cardiovascular: regular rate, rhythm, no murmur, normal peripheral pulses. Vessels: no JVD or carotid bruit Chest: normal inspection of chest Abdomen/GI: normal bowel sounds, soft, nontender, no hepatosplenomegaly Extremities/Musculoskelatal: no cyanosis or clubbing, extremities motor strength 5/5 Neurologic: PERRL, EOMI, no face palsy, no dysarthria CN's II-XI intact bilaterally and moves all extremities Psychiatric: A+Ox3, euthymic affect Skin: no rashes, normal color, warm/dry Results & Data Vital Signs (Past 12 Hours) Vital Signs Temp Pulse Resp BP Pulse Ox Pulse Ox 01/15/19 12:26 160/100 H 01/15/19 12:19 36.5 C 85 17 173/106 H 99 01/15/19 08:00 97 01/15/19 07:41 37.0 C 90 20 166/96 H 97 01/15/19 03:51 36.6 C 82 22 166/99 H 98 01/15/19 00:54 171/98 H Laboratory Results Short CBC 01/14/19 01/15/19 Range/Units 14:25 06:15 WBC 10.28 11.47 H (4.8-10.8) K/uL Hgb 14.1 11.3 L (12.0-16.0) g/dL Hct 43.2 34.7 L (37-47) % Plt Count 496 H 371 (130-400) K/uL BMP 01/14/19 01/15/19 14:25 06:15 Sodium 138 139 Potassium 3.4 L 3.6 Chloride 105 107 Carbon Dioxide 22 23 BUN 8 5 L Creatinine 0.93 0.74 Glucose 90 151 H Calcium 9.4 8.4 L Liver Function 01/14/19 Range/Units 14:25 Total Bilirubin 0.2 (0.2-1) mg/dl AST 17 (15-37) U/L ALT 33 (12-78) U/L Alkaline Phosphatase 90 (45-117) U/L Albumin 4.3 (3.4-5.0) gm/dl (1) Anaphylaxis Encounter type: initial encounter Qualified Code(s): T78.2XXA - Anaphylactic shock, unspecified, initial encounter (2) Migraine Intractability: not intractable Migraine type: unspecified Status migrainosus presence: without status migrainosus Qualified Code(s): G43.909 - Migraine, unspecified, not intractable, without status migrainosus
[2019-01-15] MEDS ORDERED: SENNA 8.6 MG TAB PO STA (14:28)
[2019-01-15] MEDS ORDERED: SENNA 8.6 MG TAB PO SCH (14:30)
[2019-01-15] MEDS ORDERED: NICOTINE 21 MG/24 HR TDSY TD SCH (15:00)
[2019-01-15] MEDS: NICOTINE 7 MG/24 HR TDSY TD SCH (17:56)
[2019-01-15] MEDS: OXYCODONE/ACETAMINOPHEN 5mg/325mg TAB PO PRN (18:20)
[2019-01-15] MEDS: MAGNESIUM OXIDE 400 MG TAB PO SCH (20:59)
[2019-01-15] MEDS: VALACYCLOVIR HCL 500 MG TABLET PO SCH (21:00)
[2019-01-15] MEDS: clonazePAM 1 MG TAB PO PRN (21:03)
[2019-01-16] MEDS: DiphenhydrAMINE HCL 50 MG/ML VIAL IV PRN ×3 (00:04→12:26)
[2019-01-16] MEDS: OXYCODONE/ACETAMINOPHEN 5mg/325mg TAB PO PRN ×4 (00:04→14:31)
[2019-01-16] MEDS: PROMETHAZINE HCL 12.5 MG/10 ML UDP PO PRN ×2 (00:05→12:27)
[2019-01-16] MEDS ORDERED: BENZONATATE 100 MG CAPSULE PO PRN (01:15)
[2019-01-16] MEDS ORDERED: MoRPHine SULFATE 2 MG/ML CARP IV ONE (01:45)
--- NOTE | 2019-01-16 02:11 | Hospitalist Progress Note ---
Date of Service January 16, 2019 Subjective Made aware by RN of pleuritic substernal chest pain and junky cough symptoms. Chest x-ray as per my interpretation no infiltrate. AP Chest pain, cough possible aspiration pneumonitis History emesis symptoms Patient not septic. Augmentin course. Will relay to AM provider. Results & Data Vital Signs (Past 12 Hours) Vital Signs Temp Pulse Pulse Resp BP Pulse Ox 01/16/19 00:00 98 H 01/15/19 23:06 36.6 C 84 20 160/98 H 97 01/15/19 19:26 36.9 C 78 18 159/103 H 98 01/15/19 19:08 95 H 01/15/19 15:27 36.8 C 82 18 155/91 H 96 01/15/19 14:16 150/100 H
[2019-01-16] MEDS: AMOXICILLIN/CLAVULANATE 875 MG TAB PO SCH ×2 (03:44→14:41)
[2019-01-16] MEDS: carvediloL 6.25 MG TAB PO SCH ×2 (04:40→14:41)
[2019-01-16 05:01] LABS: Hematocrit (blood only) 36.2 % (37-47); Hemoglobin 12.1 g/dL (12.0-16.0); Immature Granulocytes # (auto) 0.04 K/uL (0.00-0.02); Immature Granulocytes % (auto) 0.3 %; Lymphocytes # (auto) 1.46 K/uL (1.2-3.4); Lymphocytes % (auto) 11.5 %; Mean Corpuscular Hemoglobin 32.9 pg (25-34); Mean Corpuscular Hgb Conc 33.4 g/dL (32-36); Mean Corpuscular Volume 98.4 fL (80-100); Mean Platelet Volume 9.4 fL (7.4-10.4); Monocytes # (auto) 0.44 K/uL (0.11-0.59); Monocytes % (auto) 3.5 %; Neutrophils # (auto) 10.71 K/uL (1.4-6.5); Neutrophils % (auto) 84.7 %; Platelet Count 406 K/uL (130-400); RDW Coefficient of Variation 13.4 % (11.5-14.5); RDW Standard Deviation 48.2 fL (36.4-46.3); Red Blood Count 3.68 M/uL (4.2-5.4); White Blood Count 12.65 K/uL (4.8-10.8)
[2019-01-16 05:12] LABS: Partial Thromboplastin Ratio 0.8; Partial Thromboplastin Time 22.8 Seconds (21.0-31.0)
[2019-01-16 05:31] LABS: BUN Creatinine Ratio 14.6 (10-20); Blood Urea Nitrogen 11 mg/dl (7-18); Calcium 8.6 mg/dl (8.5-10.1); Carbon Dioxide 27 mmol/L (21-32); Chloride 106 mmol/L (98-107); Creatinine Clr Calc Pharmacy 109.4 ml/min; Est GFR (African American) 125.4; Est GFR (Non-African American) 108.2; Glucose 136 mg/dl (70-99); Magnesium 2.2 mg/dl (1.8-2.4); Potassium 3.8 mmol/L (3.5-5.1); Sodium 140 mmol/L (136-145)
[2019-01-16 05:36] LABS: Troponin I < 0.015 ng/ml (0-0.045)
[2019-01-16] MEDS ORDERED: methylPREDNISolone 4 MG TAB PO SCH ×2 (07:00→21:00)
--- NOTE | 2019-01-16 07:03 | XRay Report ---
XR chest 1V portable CLINICAL HISTORY: cough COMPARISON STUDY: 01/14/2019 FINDINGS: The cardiac and mediastinal contours are normal. There is no evidence of focal pulmonary co nsolidation. There is no evidence of failure. No pleural effusions are visualized.[ IMPRESSION: No active disease in the chest. Electronically signed by: Guy Bañuelos M.D. 01/16/2019 7:02 AM
[2019-01-16] MEDS: clonazePAM 1 MG TAB PO PRN (09:27)
[2019-01-16] MEDS: lamoTRIgine 100 MG TAB PO SCH (09:29)
[2019-01-16] MEDS: NICOTINE 7 MG/24 HR TDSY TD SCH (09:29)
[2019-01-16] MEDS: CETIRIZINE HCL 10 MG TABLET PO SCH (09:30)
[2019-01-16] MEDS: DULOXETINE HCL 30 MG CAP PO SCH (09:30)
[2019-01-16] MEDS: DOCUSATE SODIUM 100 MG CAP PO SCH (09:30)
[2019-01-16] MEDS: PANTOprazole 40 MG TAB PO SCH (09:30)
[2019-01-16] MEDS: CYANOCOBALAMIN 500 MCG TABLET (VITAMIN B-12) PO SCH (09:31)
[2019-01-16] MEDS ORDERED: AMLODIPINE BESYLATE 5 MG TAB PO ONE (09:58)
--- NOTE | 2019-01-16 11:24 | Hospitalist Progress Note ---
Date of Service January 16, 2019 Assessment & Plan (1) Anaphylaxis: Pt with history of soy allergy presented to ER today after eating sushi with suspected tofu with complaints of tongue edema, lip paresthesias, red rash to chest, shortness of breath, vomiting. Patient gave herself epinephrine prior to arrival. Symptoms have resolved -Afebrile, initially tachycardic and tachypneic but both have resolved. BP: 186/99, 99% on room air -In ER patient given Pepcid IV, Benadryl 50 mg p.o., Solu-Medrol and 25 mg IV, 1L NSS, racemic epinephrine nebulizer, DuoNeb, Zofran, Toradol, Hycodan -Still with chest tightness, intermittent cough. No respiratory distress, no lip, tongue, uvular edema, no current rash or urticaria -Trialed Medrol dose isabel but did not seem to help. Discontinued -Continue Zyrtec, Benadryl PRN, pain control -Epinephrine IM as needed anaphylaxis (2) Bronchitis: Productive cough. No wheezing, fever or chills -CXR unremarkable -Continue Augmentin for possible bronchitis -Albuterol PRN (3) Chest pain: Endorsing burning chest tightness since episode of anaphylaxis -EKG with normal sinus rhythm. Troponin negative, CXR clear -Likely 2/2 anaphylaxis episode as well as elevated BP -Optimize BP, routine 2D echo, repeat troponin (4) Elevated blood pressure reading: Baseline BP 150s/90s per patient. Has been ~160/95 today -Coreg 6.25mg BID added yesterday -Adding amlodipine 5mg now. Monitor (5) Migraine: Chronic migraine -Continue Lamictal, continue Flexeril and gabapentin as needed (6) Depression: (7) Anxiety: Continue duloxetine, Lamictal, continue Klonopin as needed (8) Chronic constipation: Has not had a BM since arrival. Continue docusate, added Senna DVT Prophylaxis -SCDs Follows with Dr. Willett for routine care Pt was seen and care coordinated with Dr. Joshua. See addendum Supervising Physician Co-Signing Physician Notes Patient is seen and examined at bedside. States having pleuritic chest pain with cough. Denies any shortness of breath, dysphagia. She was started on Augmentin overnight for bronchitis. Cardiac enzymes, EKG, ECHO negative for ACS. Blood pressure slightly better. On exam patient is moderately built and nourished, no apparent distress, normocephalic atraumatic, lungs are clear to auscultation, S1-S2, no murmur, abdomen soft nontender, grossly no focal ne urological deficits, no pedal edema. Agree with adding amlodipine 5mg daily, continue Coreg for BP control. Continue bowel regimen for constipation. Agree with rest of the above management. I personally reviewed the record. Patient is interviewed and examined at bedside. Patient's care is coordinated with Maral Mcguire PA-C. Please refer to the documentation above for details of patient's presentation and for discussion of other issues. Subjective Seen and examined in 215-1. Patient experiencing burning chest pain made worse with deep inspiration. Cough with some productive sputum. Has some nausea overnight that has resolved. Started on Augmentin overnight for concern for bronchitis/ aspiration pna. Denies fever, chills, rash no longer present. No headache, lightheadedness, palpitations, abdominal pain, nausea, vomiting, dysuria or diarrhea. Review of Systems Review of Systems: At least ten systems reviewed and negative except as noted in the HPI. Physical Exam Physical Exam: General Appearance: WD/WN, vitals as above, NAD, sitting up in bed, pleasant, conversing easily, + anxious Head: normocephalic, atraumatic Eyes: normal inspection, PERRL, conjunctivae normal, anicteric sclerae ENT: external ear and nose normal, oropharynx normal Neck: trachea midline, no thyromegaly normal visual inspection Respiratory: lungs clear to auscultation, no wheeze, rales, rhonchi. Normal insp/exp effort, no accessory muscle use Cardiovascular: regular rate, rhythm, no murmur, normal peripheral pulses. Vessels: no JVD or carotid bruit Chest: normal inspection of chest Abdomen/GI: normal bowel sounds, soft, nontender, no hepatosplenomegaly Extremities/Musculoskelatal: no cyanosis or clubbing, extremities motor strength 5/5 Neurologic: PERRL, EOMI, accommodation nl, no face palsy, no dysarthria CN's II-XI intact bilaterally and moves all extremities Psychiatric: A+Ox3, anxious Skin: no rashes, normal color, warm/dry Results & Data Vital Signs (Past 12 Hours) Vital Signs Temp Pulse Pulse Pulse Resp BP BP 01/16/19 08:00 160/95 H 01/16/19 07:51 37.2 C 88 18 173/113 H 165/104 H 01/16/19 03:03 36.9 C 76 15 178/109 H 164/115 H 01/16/19 00:00 98 H Pulse Ox 01/16/19 08:00 01/16/19 07:51 96 01/16/19 03:03 97 01/16/19 00:00 Laboratory Results Short CBC 01/16/19 Range/Units 04:46 WBC 12.65 H (4.8-10.8) K/uL Hgb 12.1 (12.0-16.0) g/dL Hct 36.2 L (37-47) % Plt Count 406 H (130-400) K/uL BMP 01/16/19 04:46 Sodium 140 Potassium 3.8 Chloride 106 Carbon Dioxide 27 BUN 11 D Creatinine 0.73 Glucose 136 H Calcium 8.6 Cardiac Enzymes 01/16/19 Range/Units 04:46 Troponin I < 0.015 (0-0.045) ng/ml (1) Anaphylaxis Encounter type: initial encounter Qualified Code(s): T78.2XXA - Anaphylactic shock, unspecified, initial encounter (2) Migraine Intractability: not intractable Migraine type: unspecified Status migrainosus presence: without status migrainosus Qualified Code(s): G43.909 - Migraine, unspecified, not intractable, without status migrainosus
[2019-01-16] MEDS ORDERED: SENNA 8.8 MG/5 ML UDP PO PRN (12:15)
[2019-01-16] MEDS: GUAIFENESIN/DEXTROM SYRUP 100MG/10MG 5ML UDC PO PRN (12:27)
--- NOTE | 2019-01-16 13:51 | Discharge Summary ---
Date of Service January 16, 2019 Admission HPI Per Admitting Provider Pt is 33 y/o F with PMH soy allergy, migraine GUADALUPE, depression, anxiety, fibromyalgia, chronic constipation presented to ER with c/o allergic reaction. Reported at [facility] at 1330. At 1400 developed red rash to chest, tongue edema, paresthesias of lips, SOB, and vomiting. She gave herself epinephrine injection and presented to ER. Upon ER presentation pt states was SOB, coughing. Since being in ER has intermittent cough and reports chest wilson when coughs but no further SOB. Vomiting has since resolved. She reports hx mild reaction to soy in past requiring ER evaluation and several hour observation in past. Denies fever/chills, diaphoresis, diarrhea, constipation, GUADALUPE, dizziness, syncope, vision changes, neck pain, orthopnea, palpitations, cough, sore throat, choking, otalgia, rhinorrhea, abdominal pain, paresthesias, weakness, extremity weakness, extremity edema, rashes, urinary symptoms. Admission Exam Per Admitting Provider General: no current distress, WDWN Head: normocephalic, atraumatic Eyes: PERRL, EOM's intact, conjunctiva non-injected, anicteric ENT: normal inspection external ears, nose, no uvula or tongue or lip edema, mucous membranes moist Neck: supple, trachea midline, non-tender Lungs: clear, no respiratory distress, no wheezing/rhonchi/rales CV: RRR, no murmur, no pretibial edema Abd: normal BS, soft, non-tender Ext: no cyanosis, no calf tenderness Neuro: A&O x 3, no focal deficits noted, normal affect Skin: warm, dry, no current rash or urticaria Principal Diagnosis anaphylaxis Hypertension Discharge Exam General Appearance: WD/WN, vitals as above, NAD, sitting up in bed, pleasant, conversing easily, + anxious Head: normocephalic, atraumatic Eyes: normal inspection, PERRL, conjunctivae normal, anicteric sclerae ENT: external ear and nose normal, oropharynx normal Neck: trachea midline, no thyromegaly normal visual inspection Respiratory: lungs clear to auscultation, no wheeze, rales, rhonchi. Normal insp/exp effort, no accessory muscle use Cardiovascular: regular rate, rhythm, no murmur, normal peripheral pulses. Vessels: no JVD or carotid bruit Chest: normal inspection of chest Abdomen/GI: normal bowel sounds, soft, nontender, no hepatosplenomegaly Extremities/Musculoskelatal: no cyanosis or clubbing, extremities motor strength 5/5 Neurologic: PERRL, EOMI, accommodation nl, no face palsy, no dysarthria CN's II-XI intact bilaterally and moves all extremities Psychiatric: A+Ox3, anxious Skin: no rashes, normal color, warm/dry Discharge Data Allergies Allergy/AdvReac Type Severity Reaction Status Date / Time ciprofloxacin Allergy Intermediate ITCHING, Verified 01/14/19 15:02 FEVER clindamycin Allergy Intermediate ITCHING/BUR Verified 01/14/19 15:02 PATTIE Cipro Allergy Unknown ITCHING, Verified 12/07/17 00:43 FEVER soy Allergy Anaphylaxis Verified 01/14/19 15:02 metoclopramide AdvReac Intermediate panic Verified 01/14/19 15:02 attacks prochlorperazine AdvReac Intermediate panic Verified 01/14/19 15:02 attack Sulfa (Sulfonamide AdvReac Intermediate vomiting Verified 01/14/19 15:02 Antibiotics) Consultations 01/14/19 16:57 ED Decision to Admit Stat Procedures Performed CXR: No active disease in the chest. Hospital Course (1) Anaphylaxis: (2) Bronchitis: (3) Chest pain: (4) Elevated blood pressure reading: Pt with history of soy allergy presented to ER today after eating sushi with suspected tofu with complaints of tongue edema, lip paresthesias, red rash to chest, shortness of breath, vomiting. Patient gave herself epinephrine prior to arrival. Was initially tachycardic and tachypneic but both resolved by the time of admission. In ER patient given Pepcid IV, Benadryl 50 mg p.o., Solu- Medrol and 25 mg IV, 1L NSS, racemic epinephrine nebulizer, DuoNeb, Zofran and Toradol. Patient experienced chest tightness and intermittent cough throughout admission. No respiratory distress, no lip, tongue, uvular edema, no current r tash or urticaria. Zyrtec, Benadryl PRN and pain control were continued. Chest tightness was thought to due to anaphylactic event as well as uncontrolled blood pressure. A medrol dose isabel was trialed for chest tightness and cough but did not seem to help and was discontinued. EKG revealed normal sinus rhythm. Chest XR was unremarkable and troponin was negative x 2. Transthoracic echo revealed normal LV function, EF: 60-65%, no wall motion abnormality. Patient's blood pressure was elevated throughout admission averaging 160/100. States that home BP is usually 150/90. Started on Carvedilol 6.25mg BID and Amlodipine 5mg daily with some improvement. Continued to have productive cough so was started on 7 day course of Augmentin. No leukocytosis, fever or CXR abnormality to suggest pneumonia. At time of discharge, patient was afebrile and hemodynamically stable with improved BP. Scheduled for close follow up with Dr. Willett for BP recheck. Also provided with refill of Epipen, Benadryl and albuterol inhaler. (5) Migraine: (6) Depression: (7) Anxiety: (8) Chronic constipation: Total Time Total Time Spent Total Time Spent (In Minutes): 50 Total Time Includes: Examination of the Patient, Discharge Planning, Medication Reconciliation and Communication With Other Providers Discharge Plan Discharge Items Patient Disposition: Home - Self-Care Reason For Visit: ANAPHYLAXIS Discharge Diagnosis: anaphylaxis, hypertension Activity: Resume your previous activity Exercise/Sports: Gradually increase as tolerated Non-emergency contact: Primary Care Provider Call non-emergency contact if: you have any medication questions, your symptoms worsen, your pain is not controlled, your pain is worsening, your pain is unusual for you, your pain is concerning for you and you have a fever Follow-up/Referrals: Noe Willett MD [Primary Care Provider] - Diet: Low Sodium (2gm) Addtl Attending Provider Instructions: MEDICATION CHANGES: Two medications were added for high blood pressure. 1. Carvedilol 6.25mg PO BID 2. Amlodipine 5mg PO daily One medication was added for possible bronchitis. 1. Augmenting 500mg twice daily for 6 more days SUMMARY OF TEST RESULTS: Chest XR: No acute abnormalities 2D echo of heart: Left ventricle with normal function, EF: 60-65%, no wall motion abnormalities RECOMMENDATIONS FOR FOLLOW-UP: Your hospital follow-up appointment is with Dr. Willett on Sunday, January 20 at 12:05pm. Seek medical attention if you have: * temperature above 101 * chest pain or trouble breathing * abdominal pain, nausea, vomiting * diarrhea, dark stools or bloody stools * any unanswered questions or concerns Call 911 if symptoms are severe. Please take good care of yourself. Call if you have any questions or problems. You can reach a [facility] hospitalist on duty at [facility] 24 hours a day by calling [phone]. Pending Studies at Discharge: No Stand-Alone Forms: My [facility], Work/School Release (Inpt) Medications and DC Order Prescriptions: New carvedilol 6.25 mg Tablet 6.25 mg PO BID Qty: 60 RF: 0 amlodipine [Norvasc] 5 mg Tablet 5 mg PO QAM Qty: 30 RF: 0 diphenhydramine HCl [Benadryl] 25 mg Capsule 25 mg PO Q8H PRN (Reason: itching) 5 Days Qty: 15 RF: 0 albuterol sulfate 90 mcg/actuation HFA aerosol inhaler 1 puffs INH Q6H PRN (Reason: shortness of breath or wheezing) Qty: 18 RF: 0 amoxicillin-pot clavulanate [Augmentin] 500-125 mg tablet 1 tab PO BID Qty: 12 RF: 0 Continued valacyclovir 1 gram tablet 1 g PO HS RF: 0 duloxetine 30 mg capsule,delayed release(DR/EC) 30 mg PO QAM RF: 0 cyanocobalamin (vitamin B-12) [Vitamin B-12] 1,000 mcg Tablet 1,000 mcg PO QAM RF: 0 acetaminophen [Tylenol Extra Strength] 500 mg Tablet 100 mg PO QID PRN (Reason: Pain) RF: 0 docusate sodium 100 mg Capsule 100 mg PO BID RF: 0 Green Tea Capsule 1 cap PO DAILY RF: 0 epinephrine [EpiPen] 0.3 mg/0.3 mL auto-injector 0.3 mg IM UD PRN (Reason: Allergic Reaction) Qty: 1 RF: 1 cyclobenzaprine 10 mg Tablet 10 mg PO HS PRN (Reason: Migraine Headache) RF: 0 norgestrel-ethinyl estradiol 0.3-30 mg-mcg tablet 1 tab PO HS RF: 0 cetirizine 10 mg tablet 10 mg PO DAILY PRN (Reason: Allergy Symptoms) RF: 0 clonazepam 1 mg Tablet 1 mg PO BID PRN (Reason: Anxiety) RF: 0 duloxetine 60 mg Capsule,Delayed Release(Dr/Ec) 60 mg PO QAM RF: 0 ondansetron 4 mg Tablet,Disintegrating 4 mg PO Q6H PRN (Reason: Nausea) RF: 0 lamotrigine [Lamictal] 100 mg Tablet 100 mg PO QAM RF: 0 magnesium oxide 400 mg magnesium Tablet 400 mg PO HS RF: 0 gabapentin 100 mg Capsule 100 mg PO TID PRN (Reason: Migraine Headache) RF: 0 Prilosec OTC 20 mg Tablet,Delayed Release (Dr/Ec) 20 mg PO QAM RF: 0 Discontinued diphenhydramine HCl [Benadryl] 25 mg Capsule 25 mg PO QID PRN (Reason: Itching) RF: 0 Discharge Orders: Discharge Order (Routine); Ordered 01/16/19 Ordered By: Maral Mcgurie Admission Data Admit Date/Time: 01/16/19 09:59 Attending Provider: Kwadwo Joshua Admit Provider: Courtney Azevedo Primary Care Provider: Noe Willett Other Providers: Courtney Azevedo Other Interventions: Discharge Summary Assessment (RN) Last Done: 01/16/19 14:19 DC Date/Time DO NOT enter until pt leaves facility: 01/16/19 15:45
[2019-01-16] MEDS ORDERED: ALUMINUM/MAGNESIUM/SIMETH (MAALOX MAX) 30 ML UDC PO PRN (14:07)
[2019-01-16] MEDS ORDERED: Nursing to Pharmacy Communication ONE (14:39)
[2019-01-16] MEDS ORDERED: carvediloL 6.25 MG TAB PO SCH (15:00)
[2019-01-17] MEDS ORDERED: methylPREDNISolone 4 MG TAB PO SCH (07:00)
[2019-01-17] MEDS ORDERED: AMLODIPINE BESYLATE 5 MG TAB PO SCH (09:00)
[2019-01-18] MEDS ORDERED: methylPREDNISolone 4 MG TAB PO SCH (07:00)
[2019-01-19] MEDS ORDERED: methylPREDNISolone 4 MG TAB PO SCH (07:00)
[2019-01-20] MEDS ORDERED: methylPREDNISolone 4 MG TAB PO SCH (07:00)
== END 2019-01-16 15:45 | disposition home or self-care (01) | DRG 916 ==
LOC: ED 14:18 → 2S 14:18 → SUATTDRO 18:04 → 2S 18:33

== ENCOUNTER 2019-02-04 21:18 | Observation (INO) ==
[2019-02-04] MEDS ORDERED: DiphenhydrAMINE HCL 50 MG/ML VIAL IV STA (22:25)
[2019-02-04] MEDS ORDERED: FAMOTIDINE 20MG IV PUSH 20 MG/5 ML SYR IV STA (22:25)
[2019-02-04] MEDS ORDERED: SODIUM CHLORIDE 0.9% 1000ML 1,000 ML IV ONE (22:25)
[2019-02-04] MEDS ORDERED: EPINEPHrine INJ 1 MG/ML AMP IM STA (22:25)
[2019-02-04] MEDS ORDERED: methylPREDNISolone 125 MG/2 ML VIAL IV STA (22:25)
[2019-02-04] MEDS ORDERED: GI COCKTAIL ED USE PO ONE (23:02)
[2019-02-04] MEDS ORDERED: ONDANSETRON INJ 2 MG/ML 2 ML VIAL IV STA (23:02)
[2019-02-04] MEDS ORDERED: DiphenhydrAMINE HCL 50 MG/ML VIAL IV PRN (23:20)
[2019-02-04 23:38] LABS: Alanine Aminotransferase 52 U/L (12-78); Albumin Level 4.7 gm/dl (3.4-5.0); Aspartate Aminotransferase 24 U/L (15-37); BUN Creatinine Ratio 7.2 (10-20); Blood Urea Nitrogen 7 mg/dl (7-18); Calcium 9.8 mg/dl (8.5-10.1); Carbon Dioxide 25 mmol/L (21-32); Chloride 104 mmol/L (98-107); Creatinine Clr Calc Pharmacy 76.2 ml/min; Est GFR (African American) 82.7; Est GFR (Non-African American) 71.4; Glucose 136 mg/dl (70-99); Lipase 136 U/L (73-393); Magnesium 1.9 mg/dl (1.8-2.4); Potassium 3.5 mmol/L (3.5-5.1); Sodium 138 mmol/L (136-145)
[2019-02-04 23:42] LABS: Partial Thromboplastin Ratio 0.9; Partial Thromboplastin Time 24.8 Seconds (21.0-31.0)
[2019-02-04 23:43] LABS: Albumin Globulin Ratio 1.2 (0.9-2); Alkaline Phosphatase 104 U/L (45-117); Bilirubin,Total 0.5 mg/dl (0.2-1); Total Protein 8.7 gm/dl (6.4-8.2); Troponin I < 0.015 ng/ml (0-0.045)
[2019-02-04] MEDS ORDERED: TRAMADOL HCL 50 MG TABLET ONE (23:54)
[2019-02-05] MEDS ORDERED: OPTIRAY 320 125ml IV PRN (00:34)
--- NOTE | 2019-02-05 00:51 | History & Physical Report ---
Date of Service February 05, 2019 Assessment & Plan (1) Hypersensitivity reaction: hx soy allergy Recent school exposure ? Late phase reaction Second admission at the hospital for the same reason this month hypertensive urgency secondary to missed medication Fibromyalgia as per records chronic migraine, at baseline mood/anxiety disorder, at baseline ongoing tobacco abuse chronic constipation on Linzess history of opiate misuse/abuse as per records Multiple ER ([facility], [facility]) visits ? Secondary gain OBS Medical telemetry given uncontrolled blood pressure Facilitate home BP medications Continue prednisone course prescribed by ER Benadryl as needed Outpatient Allergology referral judicious narcotic use given history of opiate misuse/abuse as per records (I told patient I was not comfortable giving her IV narcotics for her chest pain due to potential respiratory compromise from her being admitted for a hypersensitivity reaction.) Nicotine replacement therapy as needed DVT prophylaxis Lovenox subcu Full code History of Present Illness Primary Care Provider: Noe Willett MD History obtained from patient and records. Medical history significant for hypertension, chronic migraine, mood disorder, anxiety disorder, ongoing tobacco abuse, fibromyalgia as per records, chronic constipation, history of opiate misuse/abuse as per records. Recent confinement 3 weeks ago for anaphylaxis attributed to eating sushi with suspected soy tofu. Patient seen at [facility] ER 3 days ago for migraine headache. Patient seen in the ER yesterday for an allergic reaction in school after being exposed to the aroma of a soy-containing product that was microwaved at a common area of the school building. Patient developed dry cough, itchiness, sensation of swelling in the throat, tongue puffiness and chest burning. Patient was able to use EpiPen prior to arrival at the ER. At the ER patient received Benadryl, Pepcid, Solu-Medrol. Patient discharged home with a prednisone course prescription. As per patient, she still was not well when she was discharged from the emergency room. Patient fell asleep at home. When she woke up, patient experienced recurrent chest tightness, dry cough, throat swelling discomfort, dizziness. Patient given Benadryl, Pepcid, Solu-Medrol, at the ER. Patient still complaining of uncomfortable chest pain. Patient requesting for Hydromorphone which worked for her chest discomfort during her last confinement. MEDICAL HISTORY: As above. SURGERIES: Exploratory laparotomy for bowel obstruction, cystoscopy, dental surgery, tonsillectomy, adenectomy, sinus/throat surgery. Cholecysto enterostomy, FAMILY HISTORY: Migraine, thyroid cancer, multiple sclerosis, colon and lung cancer, gastric cancer. PERSONAL AND SOCIAL HISTORY: Few cigarettes from time to time. Occasional alcoholic beverages. 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 Allergies Allergy/AdvReac Type Severity Reaction Status Date / Time ciprofloxacin Allergy Intermediate ITCHING, Verified 02/04/19 14:15 FEVER clindamycin Allergy Intermediate ITCHING/BUR Verified 02/04/19 14:15 PATTIE Cipro Allergy Unknown ITCHING, Verified 12/07/17 00:43 FEVER soy Allergy Anaphylaxis Verified 02/04/19 14:15 metoclopramide AdvReac Intermediate panic Verified 02/04/19 14:15 attacks prochlorperazine AdvReac Intermediate panic Verified 02/04/19 14:15 attack Sulfa (Sulfonamide AdvReac Intermediate vomiting Verified 02/04/19 14:15 Antibiotics) Home Medications Home Medications Medication Instructions Recorded Confirmed Type cetirizine 10 mg PO DAILY PRN 01/29/18 02/05/19 History clonazepam 1 mg PO BID PRN 01/29/18 02/05/19 History duloxetine 60 mg PO DAILY 01/29/18 02/05/19 History gabapentin 100 mg PO TID PRN 01/29/18 02/05/19 History lamotrigine [Lamictal] 100 mg PO QAM 01/29/18 02/05/19 History cyanocobalamin (vitamin B-12) 1,000 mcg PO QAM 05/23/18 02/05/19 History [Vitamin B-12] duloxetine 30 mg PO DAILY 05/23/18 02/05/19 History valacyclovir 1 g PO HS 05/23/18 02/05/19 History Prilosec OTC 20 mg PO QAM 12/12/18 02/05/19 History acetaminophen [Tylenol Extra 100 mg PO QID PRN 12/22/18 02/05/19 History Strength] docusate sodium 100 mg PO BID 01/14/19 02/05/19 History albuterol sulfate 1 puffs INH Q6H PRN #18 gm 01/16/19 02/05/19 Rx amlodipine [Norvasc] 5 mg PO QAM #30 tab 01/16/19 02/05/19 Rx carvedilol 6.25 mg PO BID #60 tab 01/16/19 02/05/19 Rx ascorbic acid-vitamin E-biotin 1 tab PO QAM 02/04/19 02/05/19 History [Hair, Skin, Nails with Biotin] epinephrine 0.3 mg IM Q3H PRN #2 ea 02/04/19 02/05/19 Rx linaclotide [Linzess] 72 mcg PO DAILYBB 02/04/19 02/05/19 History prednisone 60 mg PO DAILY 5 Days #15 tab 02/04/19 02/05/19 Rx tizanidine 2 mg PO TID PRN 02/04/19 02/05/19 History norgestrel-ethinyl estradiol 1 tab PO DAILY 02/05/19 02/05/19 History [Aman (28)] Past Med/Surg History Medical History Chronic constipation (Chronic) Anxiety (Chronic) PID (pelvic inflammatory disease) History of kidney stones (Chronic) History of ovarian cyst (Chronic) Depression (Chronic) Dysmenorrhea (Acute) Exploratory laparotomy scar Fibromyalgia History of deviated nasal septum History of small bowel obstruction Major depressive disorder, recurrent, moderate Migraine (Chronic) Migraine without aura (Resolved) Ovarian cyst Postoperative lower abdominal pain (Acute) Recurrent nephrolithiasis Recurrent sinusitis Restless leg syndrome Surgical History History of cholecystectomy (Chronic) H/O sinus surgery (Chronic) History of tonsillectomy and adenoidectomy (Chronic) H/O lithotripsy H/O wisdom tooth extraction S/P laparoscopy (Acute) Ureterostomy status Family History Other Family history non-contributory Social History Preferred Language: Danish Communication Ability: Effective Beliefs That Will Affect Care: None marital status: Single Current Living Situation: Other Current Living Situation Comment: pt lives in [facility] with 2 roommates current occupational status: student Other Information That Helps Us Care for You: No Feels Safe at Home: Yes Safety Concerns: Feels Safe At This Time Smoking Status: Current every day smoker Tobacco Type: e-cigarettes ; Do You Dip or Chew Tobacco: No ; Second Hand Exposure: Yes ; Tobacco Cessation Education Requested by Patient: No Hx Alcohol Use: No Hx Substance Use: No Review of Systems Review of Systems: As per HPI, all 10 systems reviewed, all other ROS negative Physical Exam Physical Exam: GENERAL: Slightly uncomfortable, slightly anxious, occasional dry cough, no respiratory distress SKIN: Normal color, warm HEENT: Bespectacled, [place] palpebral conjunctivae, no ptosis, dry buccal mucosa NECK : Supple, no tenderness CHEST : CTA, no chest tenderness HEART : Tachycardic, no obvious murmurs ABDOMEN: Some distention, nontender EXTREMITIES : No LE swelling/tenderness, no other conspicuous deformities noted NEUROLOGIC : Coherent, no facial asymmetry, no other gross focality Results & Data Vital Signs (Past 12 Hours) Vital Signs Temp Pulse Pulse Resp BP BP Pulse Ox 02/04/19 23:59 106 H 18 160/91 H 97 02/04/19 22:53 97 H 14 161/100 H 97 02/04/19 21:25 36.9 C 113 H 20 155/95 H 96 Laboratory Results Laboratory Results APTT 24.8 Seconds (21.0-31.0) 02/04/19 22:05 PTT Ratio 0.9 02/04/19 22:05 Sodium 138 mmol/L (136-145) 02/04/19 22:05 Potassium 3.5 mmol/L (3.5-5.1) 02/04/19 22:05 Chloride 104 mmol/L (98-107) 02/04/19 22:05 Carbon Dioxide 25 mmol/L (21-32) 02/04/19 22:05 Anion Gap 9.0 (3-11) 02/04/19 22:05 BUN 7 mg/dl (7-18) 02/04/19 22:05 Creatinine 1.03 mg/dl (0.6-1.2) 02/04/19 22:05 Est Cr Clr Drug Dosing 76.2 ml/min 02/04/19 22:05 Est GFR ( Amer) 82.7 02/04/19 22:05 Est GFR (Non-Af Amer) 71.4 02/04/19 22:05 BUN/Creatinine Ratio 7.2 (10-20) L 02/04/19 22:05 Glucose 136 mg/dl (70-99) H 02/04/19 22:05 Calcium 9.8 mg/dl (8.5-10.1) 02/04/19 22:05 Magnesium 1.9 mg/dl (1.8-2.4) 02/04/19 22:05 Total Bilirubin 0.5 mg/dl (0.2-1) 02/04/19 22:05 AST 24 U/L (15-37) 02/04/19 22:05 ALT 52 U/L (12-78) 02/04/19 22:05 Alkaline Phosphatase 104 U/L (45-117) 02/04/19 22:05 Troponin I < 0.015 ng/ml (0-0.045) 02/04/19 22:05 Total Protein 8.7 gm/dl (6.4-8.2) H 02/04/19 22:05 Albumin 4.7 gm/dl (3.4-5.0) 02/04/19 22:05 Globulin 4.0 gm/dl (2.5-4.0) 02/04/19 22:05 Albumin/Globulin Ratio 1.2 (0.9-2) 02/04/19 22:05 Lipase 136 U/L (73-393) 02/04/19 22:[address] neck initial read: Maxillary sinus disease, no soft tissue swelling/edema/skin thickening/inflammation/abscess. No thickening of the epiglottis. No prevertebral soft tissue swelling. Trachea is patent. CT chest initial read. No acute airspace opacities. No pleural effusion or pneumothorax. No pulmonary emboli. Rate 70, NSR, normal axis, no ischemia
[2019-02-05] MEDS ORDERED: CETIRIZINE HCL 10 MG TABLET PO STA (00:52)
[2019-02-05] MEDS ORDERED: DiphenhydrAMINE HCL 50 MG/ML VIAL IV STA (00:59)
[2019-02-05] MEDS ORDERED: MAGNESIUM SULFATE / D5W 1 GM/100 ML BAG IV ONE (01:48)
[2019-02-05] MEDS ORDERED: ACETAMINOPHEN 325 MG TAB PO PRN (01:48)
[2019-02-05] MEDS ORDERED: CETIRIZINE HCL 10 MG TABLET PO PRN (01:48)
[2019-02-05] MEDS ORDERED: GABAPENTIN 100 MG CAP PO PRN (01:48)
[2019-02-05] MEDS ORDERED: ACETAMINOPHEN 65 ML IV PRN (01:48)
[2019-02-05] MEDS ORDERED: LACTATED RINGER'S 1,000 ML IV ONE (01:48)
--- NOTE | 2019-02-05 01:51 | Emergency Department Note ---
Entered by Fadi Loving acting as a scribe for Rafael Millan History of Present Illness General Chief complaint: Allergic Reaction Stated complaint: ALLERGIC REACTION Time Seen by Provider: 02/04/19 22:18 Source: patient Limitations: no limitations History of Present Illness Onset (ago): hour(s) (this morning) Location: chest Pain Consistency: + constant Maximum Pain Intensity: 5 Quality: + other (itchy) Exacerbated By: + other (soy) Associated symptoms: + nausea/vomiting (nausea), + rash and + other (pain when breathing, ) Treatments prior to arrival: other (epinephrine) The patient is a 33 year old female who presents to the Emergency Room with complaints of recurrent allergic reaction from this morning. The patient states she was near soy which was in the microwave next to her and notes she started to have a rash. She states she gave herself epinephrine at 1200. She notes she came to the ED and then was discharged. She states she went home but then began feeling as though her chest was tight and she notes she is having a tough time swallowing. She notes she is burning up and is itchy. She notes she is nauseous and has pain when breathing. She notes her PCP is Dr. Willett. Home Medications Home Medications Medication Instructions Recorded Confirmed Type cetirizine 10 mg PO DAILY PRN 01/29/18 02/05/19 History clonazepam 1 mg PO BID PRN 01/29/18 02/05/19 History duloxetine 60 mg PO DAILY 01/29/18 02/05/19 History gabapentin 100 mg PO TID PRN 01/29/18 02/05/19 History lamotrigine [Lamictal] 100 mg PO QAM 01/29/18 02/05/19 History cyanocobalamin (vitamin B-12) 1,000 mcg PO QAM 05/23/18 02/05/19 History [Vitamin B-12] duloxetine 30 mg PO DAILY 05/23/18 02/05/19 History valacyclovir 1 g PO HS 05/23/18 02/05/19 History Prilosec OTC 20 mg PO QAM 12/12/18 02/05/19 History acetaminophen [Tylenol Extra 100 mg PO QID PRN 12/22/18 02/05/19 History Strength] docusate sodium 100 mg PO BID 01/14/19 02/05/19 History albuterol sulfate 1 puffs INH Q6H PRN #18 gm 01/16/19 02/05/19 Rx amlodipine [Norvasc] 5 mg PO QAM #30 tab 01/16/19 02/05/19 Rx carvedilol 6.25 mg PO BID #60 tab 01/16/19 02/05/19 Rx ascorbic acid-vitamin E-biotin 1 tab PO QAM 02/04/19 02/05/19 History [Hair, Skin, Nails with Biotin] epinephrine 0.3 mg IM Q3H PRN #2 ea 02/04/19 02/05/19 Rx linaclotide [Linzess] 72 mcg PO DAILYBB 02/04/19 02/05/19 History prednisone 60 mg PO DAILY 5 Days #15 tab 02/04/19 02/05/19 Rx tizanidine 2 mg PO TID PRN 02/04/19 02/05/19 History norgestrel-ethinyl estradiol 1 tab PO DAILY 02/05/19 02/05/19 History [Aman (28)] Allergies Allergy/AdvReac Type Severity Reaction Status Date / Time ciprofloxacin Allergy Intermediate ITCHING, Verified 02/04/19 14:15 FEVER clindamycin Allergy Intermediate ITCHING/BUR Verified 02/04/19 14:15 PATTIE Cipro Allergy Unknown ITCHING, Verified 12/07/17 00:43 FEVER soy Allergy Anaphylaxis Verified 02/04/19 14:15 metoclopramide AdvReac Intermediate panic Verified 02/04/19 14:15 attacks prochlorperazine AdvReac Intermediate panic Verified 02/04/19 14:15 attack Sulfa (Sulfonamide AdvReac Intermediate vomiting Verified 02/04/19 14:15 Antibiotics) Past Med/Surg History Medical History Chronic constipation (Chronic) Anxiety (Chronic) PID (pelvic inflammatory disease) History of kidney stones (Chronic) History of ovarian cyst (Chronic) Depression (Chronic) Dysmenorrhea (Acute) Exploratory laparotomy scar Fibromyalgia History of deviated nasal septum History of small bowel obstruction Major depressive disorder, recurrent, moderate Migraine (Chronic) Migraine without aura (Resolved) Ovarian cyst Postoperative lower abdominal pain (Acute) Recurrent nephrolithiasis Recurrent sinusitis Restless leg syndrome Surgical History History of cholecystectomy (Chronic) H/O sinus surgery (Chronic) History of tonsillectomy and adenoidectomy (Chronic) H/O lithotripsy H/O wisdom tooth extraction S/P laparoscopy (Acute) Ureterostomy status Family History Other Family history non-contributory Social History Preferred Language: Bahraini Communication Ability: Effective Beliefs That Will Affect Care: None marital status: Single Current Living Situation: Other Current Living Situation Comment: Live with roomates current occupational status: student Feels Safe at Home: Yes Smoking Status: Former smoker Tobacco Type: cigarettes ; Hx Alcohol Use: No Hx Substance Use: No Review of Systems See HPI for pertinent positives & negatives. and A total of 10 systems reviewed and were otherwise negative Physical Exam Vital Signs Vital Signs - 24 hr 02/04/19 21:25 02/04/19 22:53 02/04/19 23:59 Temperature 36.9 C Temperature Source Oral Sepsis Recent Fever Within 48 Hours No Sepsis New/Unexplained Change in Mental Status No Sepsis Action Taken by Nursing No Action Required Pulse Rate 113 H 97 H Pulse Rate [Apical] 106 H Pulse Rate from SpO2 Sensor 95 H Respiratory Rate 20 14 18 Respiratory Effort / Characteristics Non-Labored Spontaneous Respiratory Depth Normal Blood Pressure 155/95 H 161/100 H Blood Pressure [Right Arm] 160/91 H Blood Pressure Mean 115 120 Blood Pressure Mean [Right Arm] 114 Blood Pressure Position Sitting Pulse Oximetry 96 97 97 Oxygen Delivery Method Room Air Room Air Room Air GENERAL: She is oriented to person, place, and time. She appears well-developed and well-nourished. She does not appear distressed. HENT: Exam performed. - Head: Normocephalic and atraumatic. - Right Ear: External ear normal. No mastoid tenderness. - Left Ear: External ear normal. No mastoid tenderness. - Mouth/Throat: The oropharynx is clear and moist. No trismus in the jaw. No dental abscesses or uvula swelling. No oropharyngeal exudate or tonsillar abscesses. EYES: Conjunctivae and EOM are normal. Pupils are equal, round, and reactive to light. Right eye exhibits no discharge. Left eye exhibits no discharge. No scleral icterus. NECK: Normal range of motion. Neck supple. No JVD present. No spinous process tenderness present. No carotid bruit present. No rigidity. No tracheal deviation and normal range of motion present. No Brudzinski's sign and no Kernig's sign noted. CV: Normal rate, regular rhythm, normal heart sounds and intact distal pulses. There is no peripheral edema. Palpable radial pulses bue. PULM/CHEST: Effort normal and breath sounds normal. No respiratory distress. No stridor. She has no wheezes. She has no rales. Chest Wall: She exhibits no tenderness. ABD: The abdomen is soft. Bowel sounds are normal. She has no distension. No mass is present. There is no tenderness. There is no rebound, no guarding, no Brown's sign and no tenderness at McBurney's point. Rovsig negative MUSC/SKEL: Normal range of motion. There is no peripheral edema, tenderness or deformity. LYMPH: No cervical adenopathy. NEURO: She is alert and oriented to person, place, and time. She has normal strength. No cranial nerve deficit or sensory deficit. Coordination and gait normal. GCS eye subscore is 4. GCS verbal subscore is 5. GCS motor subscore is 6. cerbellar tests wnl. SKIN: Skin is warm and dry. She is not diaphoretic. PSYCH: She has a normal mood and affect. Her behavior is normal. Judgment and thought content normal. Course 2221: The patient was evaluated in room B11A, and a complete history and physical examination were performed. Patient has no stridor and no wheezing. She states her throat feels like its closing. Given subjective feelings that her throat was closing, I am going to give her Solu-Medrol 125 mg IV, epinephrine 0.3 mg IM, Benadryl IV and pepcid 20 mg IV. 2310: Vital signs stable. Patient is talking in full sentences. She states her swallowing is better. She has no wheezes. She is being admitted to the hospital given the recurrent anaphylaxis symptoms and need for epinephrine. I discussed the patient's case with Dr. Sharath Barcenas Hospitalist. He will evaluate the patient for further management Administered Medications Ioversol (Optiray 320 125ml) 125 ml IV ONCE PRN PRN Reason: Interaction Checking Stop: 02/09/19 00:33 Last Admin: 02/05/19 00:34 Dose: 118 ml Documented by: [id number] Discontinued Medications Al Hydrox/Mg Hydrox/Simethicone () 1 dose PO ONE ONE Stop: 02/04/19 23:03 Last Admin: 02/04/19 23:24 Dose: 1 dose Documented by: [id number] Cetirizine HCl (Zyrtec) 10 mg PO NOW STA Stop: 02/05/19 00:53 Last Admin: 02/05/19 01:30 Dose: 10 mg Documented by: [id number] Diphenhydramine HCl (Benadryl) 50 mg IV NOW STA Stop: 02/04/19 22:26 Last Admin: 02/04/19 22:49 Dose: 50 mg Documented by: [id number] Diphenhydramine HCl (Benadryl) 12.5 mg IV NOW STA Stop: 02/05/19 01:00 Last Admin: 02/05/19 01:04 Dose: 12.5 mg Documented by: [id number] Epinephrine HCl (Epinephrine) 0.3 mg IM NOW STA Stop: 02/04/19 22:26 Last Admin: 02/04/19 22:49 Dose: 0.3 mg Documented by: [id number] Famotidine (Pepcid 20mg Iv Push) 20 mg in 5 mls @ 2.5 mls/min IV NOW STA Stop: 02/04/19 22:26 Last Admin: 02/04/19 22:50 Dose: 2.5 mls/min Documented by: [id number] Sodium Chloride (Nss 1000ml) 1,000 mls @ 999 mls/hr IV .Q1H1M ONE Stop: 02/04/19 23:25 Last Infusion: 02/04/19 23:57 Dose: 0 mls/hr Documented by: [id number] Admin: 02/04/19 22:49 Dose: 999 mls/hr Documented by: [id number] Methylprednisolone (Solumedrol) 125 mg IV NOW STA Stop: 02/04/19 22:26 Last Admin: 02/04/19 22:51 Dose: 125 mg Documented by: [id number] Ondansetron HCl (Zofran) 4 mg IV NOW STA Stop: 02/04/19 23:03 Last Admin: 02/04/19 23:24 Dose: 4 mg Documented by: [id number] Tramadol HCl (Ultram) Confirm Administered Dose 50 mg .ROUTE .[employer]-MED ONE Stop: 02/04/19 23:55 Last Admin: 02/04/19 23:57 Dose: 25 mg Documented by: [id number] Medical Decision Making Medical Records Attestation: I reviewed the patient's medical records. Home Medications Current Medication List: was personally reviewed by me Laboratory Data Attestation: I reviewed the patient's lab results. Result diagrams: 02/04/19 22:05 Lab Results 02/04/19 02/04/19 Range/Units 22:05 22:05 APTT 24.8 (21.0-31.0) Seconds PTT Ratio 0.9 Sodium 138 (136-145) mmol/L Potassium 3.5 (3.5-5.1) mmol/L Chloride 104 (98-107) mmol/L Carbon Dioxide 25 (21-32) mmol/L Anion Gap 9.0 (3-11) BUN 7 (7-18) mg/dl Creatinine 1.03 (0.6-1.2) mg/dl Est Cr Clr Drug Dosing 76.2 ml/min Est GFR ( Amer) 82.7 Est GFR (Non-Af Amer) 71.4 BUN/Creatinine Ratio 7.2 L (10-20) Glucose 136 H (70-99) mg/dl Calcium 9.8 (8.5-10.1) mg/dl Magnesium 1.9 (1.8-2.4) mg/dl Total Bilirubin 0.5 (0.2-1) mg/dl AST 24 (15-37) U/L ALT 52 (12-78) U/L Alkaline Phosphatase 104 (45-117) U/L Troponin I < 0.015 (0-0.045) ng/ml Total Protein 8.7 H (6.4-8.2) gm/dl Albumin 4.7 (3.4-5.0) gm/dl Globulin 4.0 (2.5-4.0) gm/dl Albumin/Globulin Ratio 1.2 (0.9-2) Lipase 136 (73-393) U/L Blood Pressure Blood Pressure Findings: Elevated blood pressure Blood Pressure Disposition: further management by hospitalist JESSI Narrative 2221: The patient was evaluated in room B11A, and a complete history and physical examination were performed. Patient has no stridor and no wheezing. She states her throat feels like its closing. Given subjective feelings that her throat was closing, I am going to give her Solu-Medrol 125 mg IV, epinephrine 0.3 mg IM, Benadryl IV and pepcid 20 mg IV. 2310: Vital signs stable. Patient is talking in full sentences. She states her swallowing is better. She has no wheezes. She is being admitted to the hospital given the recurrent anaphylaxis symptoms and need for epinephrine. I discussed the patient's case with Dr. Sharath Barcenas Hospitalist. He will evaluate the patient for further management Impression & Plan Anaphylaxis Discharge Plan Visit Data *Final* Discharge Date/Time: 02/05/19 01:24 Chief Complaint: Allergic Reaction Stated Complaint: ALLERGIC REACTION ED Provider: Rafael Millan Discharge Problem: Anaphylaxis Patient Disposition: Admitted As Inpatient Discharge Instructions Interventions: ED Discharge Assessment Last Done: 02/05/19 01:24 Discharge Problem: Anaphylaxis Qualifiers: Encounter type: initial encounter Qualified Code(s): T78.2XXA - Anaphylactic shock, unspecified, initial encounter The nehemiasibe's documentation has been prepared under my direction and personally reviewed by me in its entirety. I confirm that the note above accurately reflects all work, treatment, procedures, and medical decision making performed by me.
[2019-02-05 02:18] LABS: Pregnancy Test, Urine Negative (Negative)
[2019-02-05] MEDS: guaiFENesin 600 MG TABCR PO SCH ×3 (02:36→20:20)
[2019-02-05] MEDS: CARVEDILOL 6.25 MG TAB PO SCH ×3 (02:36→20:19)
[2019-02-05] MEDS: BCP'S~ORDER AWAITING ACTION SCH ×3 (02:55→15:33)
[2019-02-05] MEDS: LINZESS~ORDER AWAITING ACTION SCH ×3 (02:56→15:33)
[2019-02-05] MEDS: PROMETHAZINE HCL 12.5 MG in SODIUM CHLORIDE 0.9% 50 ML IV PRN ×3 (03:14→16:25)
[2019-02-05] MEDS: KETOROLAC TROMETHAMINE 15 MG/ML VIAL IV PRN ×3 (03:14→18:14)
[2019-02-05] MEDS ORDERED: DiphenhydrAMINE HCL 50 MG/ML VIAL IV PRN (03:17)
[2019-02-05] MEDS: TRAMADOL HCL 50 MG TABLET PO PRN ×3 (03:53→15:56)
[2019-02-05] MEDS ORDERED: XOPENEX/ATROVENT 1.25mg/0.5MG NEB COMBO NEB PRN (06:55)
[2019-02-05] MEDS ORDERED: LEVALBUTEROL 1.25MG/0.5ML NEB INH PRN (07:00)
[2019-02-05] MEDS ORDERED: IPRATROPIUM BROMIDE NEB SOLN 0.02% 2.5 ML VIAL INH PRN (07:00)
--- NOTE | 2019-02-05 07:01 | CT Scan Report ---
CT OF THE NECK WITH IV CONTRAST CLINICAL HISTORY: Sore throat. COMPARISON STUDY: No previous studies for comparison. TECHNIQUE: Following IV administration of 118 mL of Optiray-320, helical axial images of the neck we re obtained. Sagittal and coronal reconstructions were viewed. Automated exposure control was utili [employer] for the study. A dose lowering technique was utilized adhering to the principles of ALARA. CT DOSE: 614.60 mGy.cm FINDINGS: Visualized portions of the intracranial contents are unremarkable. There is mild polypoid mucosal thickening within the maxillary sinuses. Mastoid air cells are clear. There is no cervical sp ine fracture. Major vasculature within the neck is patent. Chest CT will be reported separately. The parotid and submandibular glands are normal. Epiglottis is normal. There is no abscess within the nec k. No cervical lymphadenopathy or mass is present. No prevertebral edema is present. There is no soft tissue gas. IMPRESSION: 1. No acute findings within the neck. No abscess. No cervical lymphadenopathy. 2. Mild polypoid mucosal thickening within the bilateral maxillary sinuses. Electronically signed by: Rafael Coyle M.D. 02/05/2019 6:59 AM
--- NOTE | 2019-02-05 07:08 | CT Scan Report ---
CT ANGIOGRAPHY OF THE CHEST, PULMONARY EMBOLUS PROTOCOL CLINICAL HISTORY: Shortness of breath. COMPARISON STUDY: Chest CT January 17, 2019. Chest radiograph February 04, 2019. TECHNIQUE: Following IV administration of 118 mL of Optiray-320, helical axial images of the chest we re obtained utilizing the pulmonary embolus protocol. Maximal intensity projections and sagittal and coronal reformats were viewed on an independent 3D workstation. IV contrast was administered withou t complication. Automated exposure control was utilized for the study. A dose lowering technique wa s utilized adhering to the principles of ALARA. FINDINGS: No pulmonary emboli are identified. There is no evidence for thoracic aortic dissection. S ize of the heart is at the upper limits of normal. There is no pericardial effusion. No pneumothorax or pleural effusion is noted. Central airways are patent. There is no consolidation to suggest pneumo elly. No suspicious pulmonary nodules are present. Bony thorax and upper abdomen are unremarkable. The gallbladder is surgically absent. IMPRESSION: 1. No pulmonary emboli identified. 2. No acute intrathoracic findings. Electronically signed by: Rafael Coyle M.D. 02/05/2019 7:06 AM
[2019-02-05 07:19] LABS: Immature Granulocytes # (auto) 0.01 K/uL (0.00-0.02); Immature Granulocytes % (auto) 0.1 %; Lymphocytes # (auto) 0.98 K/uL (1.2-3.4); Lymphocytes % (auto) 10.7 %; Mean Corpuscular Hemoglobin 32.1 pg (25-34); Mean Corpuscular Hgb Conc 33.3 g/dL (32-36); Mean Corpuscular Volume 96.3 fL (80-100); Mean Platelet Volume 9.2 fL (7.4-10.4); Monocytes # (auto) 0.15 K/uL (0.11-0.59); Monocytes % (auto) 1.6 %; Neutrophils # (auto) 8.06 K/uL (1.4-6.5); Neutrophils % (auto) 87.6 %; Platelet Count 339 K/uL (130-400); RDW Coefficient of Variation 12.9 % (11.5-14.5); RDW Standard Deviation 45.1 fL (36.4-46.3); Red Blood Count 3.74 M/uL (4.2-5.4)
[2019-02-05 07:27] LABS: INR 1.1 (0.9-1.1); Prothrombin Time 10.9 Seconds (9.0-12.0)
[2019-02-05] MEDS: lamoTRIgine 100 MG TAB PO SCH (09:07)
[2019-02-05] MEDS: DOCUSATE SODIUM 100 MG CAP PO SCH ×2 (09:07→20:19)
[2019-02-05] MEDS: DULOXETINE HCL 60 MG CAP PO SCH (09:08)
[2019-02-05] MEDS: ENOXAPARIN INJ 40 MG/0.4 ML SYR SQ SCH (09:08)
[2019-02-05] MEDS: predniSONE 20 MG TAB PO SCH (09:08)
[2019-02-05] MEDS: DULOXETINE HCL 30 MG CAP PO SCH (09:08)
[2019-02-05] MEDS: PANTOprazole 40 MG TAB PO SCH (09:08)
[2019-02-05] MEDS: AMLODIPINE BESYLATE 5 MG TAB PO SCH (09:08)
[2019-02-05] MEDS: CYANOCOBALAMIN 500 MCG TABLET (VITAMIN B-12) PO SCH (09:09)
[2019-02-05] MEDS ORDERED: DiphenhydrAMINE HCL 50 MG/ML VIAL ONE (10:53)
[2019-02-05] MEDS: clonazePAM 1 MG TAB PO PRN (10:55)
[2019-02-05] MEDS: DiphenhydrAMINE HCL 50 MG/ML VIAL IV PRN ×3 (10:55→21:31)
[2019-02-05] MEDS: FAMOTIDINE 20 MG TAB PO SCH ×2 (11:24→20:19)
[2019-02-05] MEDS ORDERED: DIHYDROERGOTAMINE MESYLATE 1 MG/ML VIAL SQ ONE (13:58)
[2019-02-05] MEDS: NICOTINE POLACRILEX 2 MG GUM MT PRN ×3 (14:14→22:06)
--- NOTE | 2019-02-05 15:48 | Hospitalist Progress Note ---
Date of Service February 05, 2019 Assessment & Plan (1) Hypersensitivity reaction: Possible Hypersensitivity Reaction H/O Soy Allergy Recent Exposure as per patient Possible Late reaction Chest CTA: No pulmonary emboli identified. No acute intrathoracic findings. Neck CT:No acute findings within the neck. No abscess. No cervical lymphadenopathy. Mild polypoid mucosal thickening within the bilateral maxillary sinuses. Continue IV Benadryl, prednisone, cetirizine and Pepcid Nebs PRN Received IV fluids No rash or scratch hannon from itching noted on exam No eosinophils noted on CBC Advised to follow-up with client relations specialist as outpatient Prolonged QTC Avoid QTC prolonging meds as able Hypertensive Urgency H/O Hypertension Missed medications Continue carvedilol, amlodipine Monitor BP H/O Fibromyalgia Chronic migraine Reports cluster headache Multiple ER visits Received 1 dose of Dihydroergotamine On Toradol RPN, Neurontin PRN, Zanaflex PRN Consulted Pain management for Input Mood/Anxiety disorder Continue Klonopin as needed Continue Cymbalta, Lamictal Ongoing tobacco abuse Counseled to quit smoking Chronic constipation On Linzess DVT Px: Lovenox SQ Code Status Full code Disposition Expect to discharge home when stable Subjective Patient is seen and examined at bedside Complains of generalized itching Also reports having " cluster headache" States rash on her chest has resolved Denies any shortness of breath, nausea, dizziness, abdominal pain Requests for IV Dilaudid, IV Benadryl, Zofran, Ambien/Valium, DHE No family at bedside Review of Systems Review of Systems: All systems reviewed & are unremarkable except as noted in HPI & below Physical Exam Physical Exam: Physical Exam: Vitals signs as noted above General Appearance:Moderately built and nourished, no apparent distress Head: normocephalic, Atraumatic Eyes: normal inspection, EOMI Neck: supple, Trachea midline Respiratory/Chest: Normal breath sounds, CTA, No accessory muscle use Cardiovascular: S1, S2, No murmur Abdomen/GI:Soft, Non tender, Bowel sounds present Extremities/Musculoskelatal:normal inspection, no edema Neurologic/Psych:AAOX3, grossly no focal neurological deficits Skin: normal color, warm Results & Data Vital Signs (Past 12 Hours) Vital Signs Temp Pulse Resp BP Pulse Ox 02/05/19 11:45 37.1 C 77 20 142/83 H 99 02/05/19 07:38 36.6 C 75 16 135/75 96 Laboratory Results Short CBC 02/05/19 Range/Units 06:41 WBC 9.20 (4.8-10.8) K/uL Hgb 12.0 (12.0-16.0) g/dL Hct 36.0 L (37-47) % Plt Count 339 (130-400) K/uL BMP 02/04/19 22:05 Sodium 138 Potassium 3.5 Chloride 104 Carbon Dioxide 25 BUN 7 Creatinine 1.03 Glucose 136 H Calcium 9.8 Cardiac Enzymes 02/04/19 Range/Units 22:05 Troponin I < 0.015 (0-0.045) ng/ml Liver Function 02/04/19 Range/Units 22:05 Total Bilirubin 0.5 (0.2-1) mg/dl AST 24 (15-37) U/L ALT 52 (12-78) U/L Alkaline Phosphatase 104 (45-117) U/L Albumin 4.7 (3.4-5.0) gm/dl
[2019-02-05 18:53] LABS: Appearance Urine Clear (Clear); Bacteria Urine Automated 1+ (Negative); Bilirubin Urine Negative (Negative); Blood Urine Negative (Negative); Cast Urine Automated 0 /lpf (0-5); Color Urine Orange; Glucose Urine UA Negative (Negative); Ketones Urine Negative (Negative); Leukocyte Esterase Urine 2+ (Negative); Nitrite Urine Negative (Negative); Protein Urine Negative (Negative); RBC Urine Automated 0-4 /hpf (0-4); Specific Gravity Urine 1.009 (1.000-1.030); Urobilinogen Urine Negative (Negative)
[2019-02-05] MEDS ORDERED: MoRPHine SULFATE 4 MG/ML 1 ML CARP\\VIAL IV STA (20:59)
[2019-02-05] MEDS ORDERED: PROMETHAZINE HCL 12.5 MG in SODIUM CHLORIDE 0.9% 50 ML IV ONE (21:00)
[2019-02-05] MEDS ORDERED: VALACYCLOVIR HCL 500 MG TABLET PO SCH (21:00)
[2019-02-05] MEDS: TIZANIDINE HCL 4 MG TABLET PO PRN (21:14)
[2019-02-06] MEDS: NICOTINE POLACRILEX 2 MG GUM MT PRN ×3 (00:23→13:28)
[2019-02-06] MEDS: BCP'S~ORDER AWAITING ACTION SCH ×3 (01:06→16:23)
[2019-02-06] MEDS: LINZESS~ORDER AWAITING ACTION SCH ×3 (01:06→16:23)
[2019-02-06] MEDS ORDERED: MoRPHine SULFATE 4 MG/ML 1 ML CARP\\VIAL IV STA (01:21)
[2019-02-06] MEDS: PROMETHAZINE HCL 12.5 MG in SODIUM CHLORIDE 0.9% 50 ML IV PRN ×3 (02:05→10:02)
[2019-02-06] MEDS: TRAMADOL HCL 50 MG TABLET PO PRN ×3 (04:06→10:02)
[2019-02-06] MEDS: DiphenhydrAMINE HCL 50 MG/ML VIAL IV PRN (04:59)
[2019-02-06 07:17] LABS: BUN Creatinine Ratio 14.1 (10-20); Calcium 8.6 mg/dl (8.5-10.1); Creatinine Clr Calc Pharmacy 116.9 ml/min; Est GFR (African American) 133.2; Est GFR (Non-African American) 114.9; Potassium 3.4 mmol/L (3.5-5.1)
[2019-02-06] MEDS ORDERED: POTASSIUM CHLORIDE 10 MEQ TABCR PO STA (07:41)
[2019-02-06] MEDS: ENOXAPARIN INJ 40 MG/0.4 ML SYR SQ SCH (08:41)
[2019-02-06] MEDS: clonazePAM 1 MG TAB PO PRN (09:14)
[2019-02-06] MEDS: TIZANIDINE HCL 4 MG TABLET PO PRN (09:15)
[2019-02-06] MEDS: guaiFENesin 600 MG TABCR PO SCH (09:16)
[2019-02-06] MEDS: PANTOprazole 40 MG TAB PO SCH (09:16)
[2019-02-06] MEDS: CARVEDILOL 6.25 MG TAB PO SCH (09:16)
[2019-02-06] MEDS: FAMOTIDINE 20 MG TAB PO SCH (09:16)
[2019-02-06] MEDS: predniSONE 20 MG TAB PO SCH (09:16)
[2019-02-06] MEDS: DOCUSATE SODIUM 100 MG CAP PO SCH (09:17)
[2019-02-06] MEDS: CYANOCOBALAMIN 500 MCG TABLET (VITAMIN B-12) PO SCH (09:17)
[2019-02-06] MEDS: DULOXETINE HCL 30 MG CAP PO SCH (09:17)
[2019-02-06] MEDS: AMLODIPINE BESYLATE 5 MG TAB PO SCH (09:17)
[2019-02-06] MEDS: DULOXETINE HCL 60 MG CAP PO SCH (09:17)
[2019-02-06] MEDS: lamoTRIgine 100 MG TAB PO SCH (09:17)
--- NOTE | 2019-02-06 09:44 | Pain Management Consultation ---
Date of Consultation February 06, 2019 Assessment & Plan (1) Migraine: 1. Patient is not a candidate for scalp nerve blocks to treat current migraine headache. 2. She does request her "cocktail" that will treat her migraine which includes: The 50 mg IV Benadryl, 4 mg Zofran or 12.5 mg Phenergan or 1.25 mg Haldol, 4 mg Valium, D.H.E. 45, 10 mg Decadron or 125 mg Solu-Medrol, and 1 mg hydromorphone. Patient states "I know my body and I know what works for me." This is deferred to hospitalist or neurology. 3. She is currently receiving Tramadol 25mg x 4 hours, Tizanidine 2mg TID, Pre dnisone 60mg daily, Cymbalta 90mg daily, and Benadryl 25mg. 4. She does continue to complain of diffuse pruritus. Benadryl was increased to 50mg. 5. Patient is in the process of switching neurology care from [place] to [facility]. She is scheduled to see Dr. Gamble April 2019. She will continue care with [facility] neurology. Intractability: not intractable Migraine type: unspecified Status migrainosus presence: without status migrainosus Qualified Code(s): G43.909 - Migraine, unspecified, not intractable, without status migrainosus History of Present Illness Attending Physician: Hillary Barrios MD History of Present Illness Marta is a 33 year old white female with a significant history of chronic migraine headaches, chronic fatigue syndrome, and fibromyalgia. She did eat something with soy a few days ago and has been admitted due to a possible delayed hypersensitivity reaction of diffuse pruritus. She has been complaining of chest heaviness which she is now contributing to a soreness from coughing. Cough has resolved. She states that the pruritus does continue despite 25mg of Benadryl x 6 hours and prednisone 60mg daily. She also states that she developed a migraine last night. Migraine is described as a sharp throbbing sensation behind the right eye. There is associated light sensitivity and nausea. I did ask her how often she developed these migraines and she states that she went a few months without any severe ones and over the last 6 + months or so the migraines returned to frequent and severe. Patient has been in the Emergency Department on multiple occasions for migraine headache treatment. [facility] She has tried several migraines, nerve blocks, trigger point injections, and botox injections. She felt like the nerve blocks and trigger points were slightly helpful. The Botox was not effective. Patient states "I want to talk about getting my migraine cocktail, itching controlled, and a plan to get discharged. I have a low pain tolerance and a high medication tolerance and I know what works for red dick." She denies any vision changes, vomiting. Pain Assessment Full Body Front + Back: 1. [facility] Combined Pain Scale: 8-Debilitating - Impairs activity. Can't maintain a conversation. Allergies Allergy/AdvReac Type Severity Reaction Status Date / Time ciprofloxacin Allergy Intermediate ITCHING, Verified 02/04/19 14:15 FEVER clindamycin Allergy Intermediate ITCHING/BUR Verified 02/04/19 14:15 PATTIE Cipro Allergy Unknown ITCHING, Verified 12/07/17 00:43 FEVER soy Allergy Anaphylaxis Verified 02/04/19 14:15 metoclopramide AdvReac Intermediate panic Verified 02/04/19 14:15 attacks prochlorperazine AdvReac Intermediate panic Verified 02/04/19 14:15 attack Sulfa (Sulfonamide AdvReac Intermediate vomiting Verified 02/04/19 14:15 Antibiotics) Home Medications Home Medications Medication Instructions Recorded Confirmed Type cetirizine 10 mg PO DAILY PRN 01/29/18 02/05/19 History clonazepam 1 mg PO BID PRN 01/29/18 02/05/19 History duloxetine 60 mg PO DAILY 01/29/18 02/05/19 History gabapentin 100 mg PO TID PRN 01/29/18 02/05/19 History lamotrigine [Lamictal] 100 mg PO QAM 01/29/18 02/05/19 History cyanocobalamin (vitamin B-12) 1,000 mcg PO QAM 05/23/18 02/05/19 History [Vitamin B-12] duloxetine 30 mg PO DAILY 05/23/18 02/05/19 History valacyclovir 1 g PO HS 05/23/18 02/05/19 History Prilosec OTC 20 mg PO QAM 12/12/18 02/05/19 History acetaminophen [Tylenol Extra 100 mg PO QID PRN 12/22/18 02/05/19 History Strength] docusate sodium 100 mg PO BID 01/14/19 02/05/19 History albuterol sulfate 1 puffs INH Q6H PRN #18 gm 01/16/19 02/05/19 Rx amlodipine [Norvasc] 5 mg PO QAM #30 tab 01/16/19 02/05/19 Rx carvedilol 6.25 mg PO BID #60 tab 01/16/19 02/05/19 Rx ascorbic acid-vitamin E-biotin 1 tab PO QAM 02/04/19 02/05/19 History [Hair, Skin, Nails with Biotin] epinephrine 0.3 mg IM Q3H PRN #2 ea 02/04/19 02/05/19 Rx linaclotide [Linzess] 72 mcg PO DAILYBB 02/04/19 02/05/19 History prednisone 60 mg PO DAILY 5 Days #15 tab 02/04/19 02/05/19 Rx tizanidine 2 mg PO TID PRN 02/04/19 02/05/19 History norgestrel-ethinyl estradiol 1 tab PO DAILY 02/05/19 02/05/19 History [Aman (28)] Patient History Medical History Chronic constipation (Chronic) Anxiety (Chronic) PID (pelvic inflammatory disease) History of kidney stones (Chronic) History of ovarian cyst (Chronic) Depression (Chronic) Dysmenorrhea (Acute) Exploratory laparotomy scar Fibromyalgia History of deviated nasal septum History of small bowel obstruction Major depressive disorder, recurrent, moderate Migraine (Chronic) Migraine without aura (Resolved) Ovarian cyst Postoperative lower abdominal pain (Acute) Recurrent nephrolithiasis Recurrent sinusitis Restless leg syndrome Surgical History History of cholecystectomy (Chronic) H/O sinus surgery (Chronic) History of tonsillectomy and adenoidectomy (Chronic) H/O lithotripsy H/O wisdom tooth extraction S/P laparoscopy (Acute) Ureterostomy status Family History Other Family history non-contributory Social History Preferred Language: Comoran Communication Ability: Effective Beliefs That Will Affect Care: None marital status: Single Current Living Situation: Other Current Living Situation Comment: pt lives in [facility] with 2 roommates 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 Speech and cognition is intact. Mood and affect is appropriate. In no acute distress. HEAD: Normocephalic; atraumatic. No focal tenderness of the greater occipital, lesser occipital, auriculotemporal, supraorbital, supratrochlear nerves. There is moderate tenderness at the base of the occipital region. EYES: Pupils are round, equal, and reactive to light; EOM intact. ENT: No external ear discharge or lesions. No rhinorrhea or epistaxis. No mucosal lesions. NECK: Full ROM; there is moderate spasm along the left trapezius and mild spasm on the right. No focal midline or facet joint tenderness. CHEST: Regular chest respiration and excursion. EXTREMITIES: Using all extremities appropriately. NEURO: CN II-XII grossly intact with no focal deficits noted. Normal gait. SKIN: No lesions, erythema, or rashes noted.
[2019-02-06] MEDS ORDERED: HALOPERIDOL LACTATE 5 MG/ML 1 ML VIAL IM STA (14:31)
[2019-02-06] MEDS ORDERED: DIHYDROERGOTAMINE MESYLATE 1 MG/ML VIAL SQ ONE (14:31)
[2019-02-06] MEDS ORDERED: DiphenhydrAMINE HCL 50 MG/ML VIAL IV STA (14:31)
[2019-02-06] MEDS ORDERED: HYDROmorphone INJ 1 MG/ML SYRINGE IV STA (14:31)
[2019-02-06] MEDS ORDERED: dexAMETHasone 4 MG TAB PO ONE (14:31)
[2019-02-06] MEDS ORDERED: DIHYDROERGOTAMINE MESYLATE 1 MG/ML VIAL IM ONE (14:31)
--- NOTE | 2019-02-06 14:45 | Neurology Consultation ---
Date of Consultation February 06, 2019 Assessment & Plan (1) Migraine aura, persistent, intractable: 1. discussed with Dr Barrios- will administer cocktail of Benadryl,DHE 45, haldol, hydrocodone- one time only 2. will continue out patient regime 3. 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 smoking cessation needed 5. discharge when medically stable 6. follow up with PCP for further medical management 7. possible botox injections if headache cycles qualify 8. pain mgt for injections as outpatient 9. if cocktail not effective for breaking cycle would try Depakote IV 500 mg q 8 hours x 2 days will discuss follow up in neurology for further management as outpatient. 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 She is failed on quite a number of medications in terms of headache prevention over the years including Topamax, Flexeril, gabapentin, Zanaflex and currently takes Lamictal Cymbalta and clonazepam but Imitrex is never worked and fortunately she is not on a lot of narcotic analgesics other than periodically when she requires a "migraine cocktail" consisting of Benadryl, Decadron, morphine, Haldol and occasionally Phenergan and is currently going to receive this in hopes that this will alleviate the headache that has emerged in the setting of her anaphylactic reaction to soy protein No imaging studies have been done nor indeed are any required in light of her history Examination is unremarkable she appears actually to be in very little pain but does have some tender nodularity at the base of her skull and some tenderness over the trapezii but pain management has not felt that injection therapy is going to help this current headache which is more vascular and is basis then due to secondary muscle spasm and a trigger point injection is going to be deferred. She is actually awake alert oriented is participating in online class from activity and almost has a pressure of speech which she states is typical of her behavior when she is in a lot of pain and she grades her pain level at about 8 and rising. The remainder of the examination was done superficially but is intact that she is gesticulating with her arms has no cranial neuropathies clear speech and no obvious motor or sensory deficits At this point I do not have a lot of suggestions other than to try the "cocktail" and perhaps if this fails go ahead with some IV Depakote which according to her in the past has had some benefit but sustained Depakote has been associate with an acceptable side effects She is expressed desire to see Dr. Thad Cline and we will try to get this arranged in fact he may be able to see her tomorrow if she is still here as he is assuming the consult service from me tomorrow morning We will also put in for a "headache expert" referral at [facility] and what I can glean from her conversation she may be set up for an appointment with our local pain management group for potential trigger point injections in the future and possibly even Botox although Dr. Whitaker also could provide this We were considering treating her with Ajovy but insurance restrictions due to her medical assistance status have prevented this from going forward We will see how things play out but hopefully the migraine cocktail will help and she could be discharged tonight although I have the impression she is is not in favor of this at the present time Yan Crystal MD History of Present Illness Reason for Consultation: intractable migraine headache Requesting Physician: Hillary Barrios MD Attending Physician: Hillary Barrios MD History of Present Illness Marta is a 33 year old female who sees DO Morales in our office. She has a history of HTN, chronic migraine, mood disorder, anxiety disorder, ongoing tobacco abuse, fibromyalgia, chronic constipation, history of opiate misuse/abuse. She was seen in [facility] 3 weeks ago for a anaphylaxis due to eating melinda and soy tofu. She developed a dry cough, itchiness, sensation of swelling in the throat, tongue puffiness and chest burning. She use an EpiPen prior to arrival at the ER. She was given benadryl, Pepcid, Solu-Medrol. She was discharge on a prednisone taper. She woke with recurrent chest tightness, dry cough, throat swelling discomfort, dizziness. She was again given Benadryl, Pepcid, Solu-Medrol, at the ER. Currently she is doing better but she still has the chronic "cluster" headache. She has a cocktail that she normally gets with the cluster headaches and requesting it is given. Pain mgt saw her earlier and discussed injections but currently her neck pain is in the scapular area and they don't feel the injection would help. denies CP, SOB, abdominal pain, one sided weakness numbness tingling, N, V, +headache+itching of scalp. Allergies Allergy/AdvReac Type Severity Reaction Status Date / Time ciprofloxacin Allergy Intermediate ITCHING, Verified 02/04/19 14:15 FEVER clindamycin Allergy Intermediate ITCHING/BUR Verified 02/04/19 14:15 PATTIE Cipro Allergy Unknown ITCHING, Verified 12/07/17 00:43 FEVER soy Allergy Anaphylaxis Verified 02/04/19 14:15 metoclopramide AdvReac Intermediate panic Verified 02/04/19 14:15 attacks prochlorperazine AdvReac Intermediate panic Verified 02/04/19 14:15 attack Sulfa (Sulfonamide AdvReac Intermediate vomiting Verified 02/04/19 14:15 Antibiotics) Home Medications Home Medications Medication Instructions Recorded Confirmed Type cetirizine 10 mg PO DAILY PRN 01/29/18 02/05/19 History clonazepam 1 mg PO BID PRN 01/29/18 02/05/19 History duloxetine 60 mg PO DAILY 01/29/18 02/05/19 History gabapentin 100 mg PO TID PRN 01/29/18 02/05/19 History lamotrigine [Lamictal] 100 mg PO QAM 01/29/18 02/05/19 History cyanocobalamin (vitamin B-12) 1,000 mcg PO QAM 05/23/18 02/05/19 History [Vitamin B-12] duloxetine 30 mg PO DAILY 05/23/18 02/05/19 History valacyclovir 1 g PO HS 05/23/18 02/05/19 History Prilosec OTC 20 mg PO QAM 12/12/18 02/05/19 History acetaminophen [Tylenol Extra 100 mg PO QID PRN 12/22/18 02/05/19 History Strength] docusate sodium 100 mg PO BID 01/14/19 02/05/19 History albuterol sulfate 1 puffs INH Q6H PRN #18 gm 01/16/19 02/05/19 Rx amlodipine [Norvasc] 5 mg PO QAM #30 tab 01/16/19 02/05/19 Rx carvedilol 6.25 mg PO BID #60 tab 01/16/19 02/05/19 Rx ascorbic acid-vitamin E-biotin 1 tab PO QAM 02/04/19 02/05/19 History [Hair, Skin, Nails with Biotin] epinephrine 0.3 mg IM Q3H PRN #2 ea 02/04/19 02/05/19 Rx linaclotide [Linzess] 72 mcg PO DAILYBB 02/04/19 02/05/19 History prednisone 60 mg PO DAILY 5 Days #15 tab 02/04/19 02/05/19 Rx tizanidine 2 mg PO TID PRN 02/04/19 02/05/19 History norgestrel-ethinyl estradiol 1 tab PO DAILY 02/05/19 02/05/19 History [Aman (28)] Patient History Medical History Chronic constipation (Chronic) Anxiety (Chronic) PID (pelvic inflammatory disease) History of kidney stones (Chronic) History of ovarian cyst (Chronic) Depression (Chronic) Dysmenorrhea (Acute) Exploratory laparotomy scar Fibromyalgia History of deviated nasal septum History of small bowel obstruction Major depressive disorder, recurrent, moderate Migraine (Chronic) Migraine without aura (Resolved) Ovarian cyst Postoperative lower abdominal pain (Acute) Recurrent nephrolithiasis Recurrent sinusitis Restless leg syndrome Surgical History History of cholecystectomy (Chronic) H/O sinus surgery (Chronic) History of tonsillectomy and adenoidectomy (Chronic) H/O lithotripsy H/O wisdom tooth extraction S/P laparoscopy (Acute) Ureterostomy status Family History Other Family history non-contributory Social History Preferred Language: Hungarian Communication Ability: Effective Beliefs That Will Affect Care: None marital status: Single Current Living Situation: Other Current Living Situation Comment: pt lives in [facility] with 2 roommates current occupational status: student Other Information That Helps Us Care for You: No Feels Safe at Home: Yes Safety Concerns: Feels Safe At This Time Smoking Status: Current every day smoker Tobacco Type: e-cigarettes ; Do You Dip or Chew Tobacco: No ; Second Hand Exposure: Yes ; Tobacco Cessation Education Requested by Patient: No Hx Alcohol Use: No Hx Substance Use: No Physical Exam Physical Exam: Physical Exam: Constitutional: appearance nourished, healthy and normal, NAD Ears, Nose, Mouth and Throat: mucous membranes moist, no injection and skin normal, eyes normal Cardiovascular: normal S-1 and S-2 and regular rate and rhythm Respiratory: clear to auscultation (CTA) and no rales, honchi or wheeze Musculoskeletal: no peripheral edema and good distal pulses Skin: no stigmata of neurocutaneous disease noted and normal and intact Eyes: extraocular muscles intact (EOMI) and pupils equal, round and reactive to light (PERRL) NEUROLOGIC EXAMINATION: Mental status: Alert and interactive Oriented to full date and location Oriented to person Speech fluent with no evidence of aphasia Cranial Nerves facial symmetry no swelling or Sensory: light and cool touch intact Gait/Stance: Posture normal. sitting up in bed moving in bed with no difficulty Motor: Negative for pronator drift of out stretched arms with eyes closed. 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 No acute intrathoracic findings. soft tissue neck CT- No acute findings within the neck. No abscess. No cervical lymphadenopathy. Mild polypoid mucosal thickening within the bilateral maxillary sinuses.
--- NOTE | 2019-02-06 14:58 | Hospitalist Progress Note ---
Date of Service February 06, 2019 Assessment & Plan (1) Migraine aura, persistent, intractable: Patient complains intractable headache, history of migraine/cluster headache, Has been following with [facility] neurology Has been on numerous medication: Topamax, Imitrex, Olegario triptan, Flexeril, oxycodone, indomethacin for recurrent migraine headache with no benefits She follows with [facility] neurology At present patient is on Lamictal, Cymbalta, Neurontin, clonazepam Developed intractable headache, without any relief to intermittent dose DHE (dihydroergotamine)/ Pain is retro-orbital on the right with radiation to the neck CT neck shows no acute findings within the neck, no abscess no cervical lymphadenopathy Pain management consulted, appreciate input Patient is not a candidate for occipital nerve block, has been radiation down to neck and shoulder She has been requesting specific headache cocktail, combination of multiple drugs including 50 mg IV Benadryl, 4 mg Zofran 12.5 mg Phenergan 1.25 mg Haldol, 4 mg Valium,DHE, 10 mg Decadron, 125 mg IV Solu-Medrol and Dilaudid 1 mg Be concerning for adverse effect, oversedation, respiratory depression combination of multiple sedatives hypnotics and anti psychotic drugs Medication regimen discussed with neurology team Recommends to continue with cocktail regimen x1 only Patient wants to be discharged home later this afternoon for headache is improved Will be followed with [facility] neurology close 2 weeks follow-up arranged with Judy Carmona PA-C at [facility] (2) Hypersensitivity reaction: H/O Soy Allergy-recent admission in hospital 2 weeks ago due to anaphylaxis reaction due to eating sushi and soy tofu while at school , soy was heated up in a microwave in the common area Dry cough itchiness sensation of swelling in her throat tongue after smelling the food Gave herself EpiPen, injection Patient was given Benadryl, Pepcid, Solu-Medrol Does not have his rash does not have any shortness of breath, Complaints of itching, requesting increased dose of Benadryl Her symptoms improved with Benadryl 50 mg every 6 hours as needed Chest CTA: No pulmonary emboli identified. No acute intrathoracic findings. Neck CT:No acute findings within the neck. No abscess. No cervical lymphadenopathy. Mild polypoid mucosal thickening within the bilateral maxillary sinuses. Continue IV Benadryl, prednisone, cetirizine and Pepcid Nebs PRN Received IV fluids No rash or scratch hannon from itching noted on exam No eosinophils noted on CBC Advised to follow-up with adaptive physical education specialist as outpatient Patient is scheduled with adaptive physical education specialist Dr Valdes at [facility] on April 15, 2019 at 9:45 AM PROLONGED QTC QTc 475 Avoid QTC prolonging meds as able-Zofran avoided Hypertension Blood pressure stable at present Continue carvedilol, amlodipine H/O Fibromyalgia Chronic migraine Reports cluster headache Multiple ER visits Received 1 dose of Dihydroergotamine-with no relief On Toradol RPN, Neurontin , Zanaflex PRN Pain management and neurology consulted-management as outlined above Mood/Anxiety disorder Continue Klonopin as needed Continue Cymbalta, Lamictal Ongoing tobacco abuse Counseled to quit smoking Chronic constipation On Linzess DVT Px: Lovenox SQ Code Status Full code Disposition Plan to discharge home later today if medically stable Subjective Patient seen in room 276 bed 1 With neurology. LAWANDA Carmona PA-C present at bedside Patient complains of ongoing catheter, localized to left retro-orbital radiating to neck and shoulder No complaint of dizzy spell, no nausea vomiting Rash on her extremity and torso has resolved, of but complains of continued itching, which has improved after Benadryl dose increased to 50mg Patient continues to request for migraine/cluster headache cocktail Has been effective for her in the past: Which includes Benadryl 50 mg IV x1, Haldol 1.25 mg IM x 1(does not want IV Phenergan as she has been getting it since admission has not been very helpful ) , Dihydroergotamine SC , decadrom 10 mg PO X1 , and 1 mg IV dilaudid x1 dose pt also requested 4 mg valium and a muscle relaxant, which are not ordered, for concern of excessive sedation Patient will be monitored closely, Wants to be discharged home later this afternoon if her migraine headache is improved with the HEADACHE COCKTAIL Physical Exam Constitutional: WD/WN, vitals as above no acute distress Eyes: PERRL, conjunctivae normal, anicteric sclerae ENMT: external ear and nose normal, oropharynx normal Neck: trachea midline, no thyromegaly Respiratory: normal respiratory effort, lungs clear to auscultation Cardiovascular: RRR, no murmur, no edema Gastrointestinal (Abdomen): normal bowel sounds, soft, nontender, no hepatosplenomegaly Musculoskeletal: no cyanosis or clubbing, extremities motor strength 5/5 Skin: no rashes, warm and dry Neurologic: PERRL, EOMI, accommodation nl, no face palsy, no dysarthria Psychiatric: Orientation: alert and oriented x 3 Affect: + anxious affect Results & Data Vital Signs (Past 12 Hours) Vital Signs Temp Pulse Pulse Resp BP Pulse Ox 02/06/19 11:30 36.6 C 72 16 115/78 95 02/06/19 07:40 78 02/06/19 07:32 36.7 C 69 18 143/94 H 98 02/06/19 05:06 81 02/06/19 04:35 36.7 C 76 20 158/95 H 98
[2019-02-06] MEDS ORDERED: POTASSIUM CHLORIDE 20 MEQ TABCR PO STA (15:44)
--- NOTE | 2019-02-06 17:46 | Discharge Summary ---
Date of Service February 06, 2019 Admission HPI Per Admitting Provider History obtained from patient and records. Medical history significant for hypertension, chronic migraine, mood disorder, anxiety disorder, ongoing tobacco abuse, fibromyalgia as per records, chronic constipation, history of opiate misuse/abuse as per records. Recent confinement 3 weeks ago for anaphylaxis attributed to eating sushi with suspected soy tofu. Patient seen at [facility] ER 3 days ago for migraine headache. Patient seen in the ER yesterday for an allergic reaction in school after being exposed to the aroma of a soy-containing product that was microwaved at a common area of the school building. Patient developed dry cough, itchiness, sensation of swelling in the throat, tongue puffiness and chest burning. Patient was able to use EpiPen prior to arrival at the ER. At the ER patient received Benadryl, Pepcid, Solu-Medrol. Patient discharged home with a prednisone course prescription. As per patient, she still was not well when she was discharged from the emergency room. Patient fell asleep at home. When she woke up, patient experienced recurrent chest tightness, dry cough, throat swelling discomfort, dizziness. Patient given Benadryl, Pepcid, Solu-Medrol, at the ER. Patient still complaining of uncomfortable chest pain. Patient requesting for Hydromorphone which worked for her chest discomfort during her last confinement. MEDICAL HISTORY: As above. SURGERIES: Exploratory laparotomy for bowel obstruction, cystoscopy, dental surgery, tonsillectomy, adenectomy, sinus/throat surgery. Cholecysto enterostomy, FAMILY HISTORY: Migraine, thyroid cancer, multiple sclerosis, colon and lung cancer, gastric cancer. PERSONAL AND SOCIAL HISTORY: Few cigarettes from time to time. Occasional alcoholic beverages. 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 Principal Diagnosis Intractable migraine headaches/cluster headache Allergic reaction Discharge Exam Constitutional WD/WN, vitals as above no acute distress Eyes PERRL, conjunctivae normal, anicteric sclerae ENMT external ear and nose normal, oropharynx normal Neck trachea midline, no thyromegaly Respiratory normal respiratory effort, lungs clear to auscultation Cardiovascular RRR, no murmur, no edema Musculoskeletal no cyanosis or clubbing, extremities motor strength 5/5 Skin no rashes, warm and dry Neurologic PERRL, EOMI, accommodation nl, no face palsy, no dysarthria Psychiatric A+Ox3, euthymic affect Discharge Data Allergies Allergy/AdvReac Type Severity Reaction Status Date / Time ciprofloxacin Allergy Intermediate ITCHING, Verified 02/04/19 14:15 FEVER clindamycin Allergy Intermediate ITCHING/BUR Verified 02/04/19 14:15 PATTIE Cipro Allergy Unknown ITCHING, Verified 12/07/17 00:43 FEVER soy Allergy Anaphylaxis Verified 02/04/19 14:15 metoclopramide AdvReac Intermediate panic Verified 02/04/19 14:15 attacks prochlorperazine AdvReac Intermediate panic Verified 02/04/19 14:15 attack Sulfa (Sulfonamide AdvReac Intermediate vomiting Verified 02/04/19 14:15 Antibiotics) Consultations 02/04/19 23:07 ED Decision to Admit Stat 02/05/19 13:36 Consult Pain Management Routine 02/06/19 11:51 Consult Neurology Routine Ordered Studies 02/04/19 23:36 CT angio chest PE protocol Urgent CT soft tissue neck w con Urgent Hospital Course (1) Migraine aura, persistent, intractable: Patient complains intractable headache, history of migraine/cluster headache, Has been following with [facility] neurology Has been on numerous medication: Topamax, Imitrex, Olegario triptan, Flexeril, oxycodone, indomethacin for recurrent migraine headache with no benefits She follows with [facility] neurology At present patient is on Lamictal, Cymbalta, Neurontin, clonazepam Developed intractable headache, without any relief to intermittent dose DHE (dihydroergotamine)/ Pain is retro-orbital on the right with radiation to the neck CT neck shows no acute findings within the neck, no abscess no cervical lymphadenopathy Pain management consulted, appreciate input Patient is not a candidate for occipital nerve block, has been radiation down to neck and shoulder She has been requesting specific headache cocktail, combination of multiple drugs including 50 mg IV Benadryl, 4 mg Zofran 12.5 mg Phenergan 1.25 mg Haldol, 4 mg Valium,DHE, 10 mg Decadron, 125 mg IV Solu-Medrol and Dilaudid 1 mg Be concerning for adverse effect, oversedation, respiratory depression combination of multiple sedatives hypnotics and anti psychotic drugs Medication regimen discussed with neurology team Recommends to continue with cocktail regimen x1 only Patient wants to be discharged home later this afternoon for headache is improved Will be followed with [facility] neurology close 2 weeks follow-up arranged with Judy Carmona PA-C at [facility] (2) Hypersensitivity reaction: H/O Soy Allergy-recent admission in hospital 2 weeks ago due to anaphylaxis reaction due to eating sushi and soy tofu while at school , soy was heated up in a microwave in the common area Dry cough itchiness sensation of swelling in her throat tongue after smelling the food Gave herself EpiPen, injection Patient was given Benadryl, Pepcid, Solu-Medrol Does not have his rash does not have any shortness of breath, Complaints of itching, requesting increased dose of Benadryl Her symptoms improved with Benadryl 50 mg every 6 hours as needed Chest CTA: No pulmonary emboli identified. No acute intrathoracic findings. Neck CT:No acute findings within the neck. No abscess. No cervical lymp hadenopathy. Mild polypoid mucosal thickening within the bilateral maxillary sinuses. Continue IV Benadryl, prednisone, cetirizine and Pepcid Nebs PRN Received IV fluids No rash or scratch hannon from itching noted on exam No eosinophils noted on CBC Advised to follow-up with airport operations specialist as outpatient Patient is scheduled with airport operations specialist Dr Valdes at [facility] on April 15, 2019 at 9:45 AM PROLONGED QTC QTc 475 Avoid QTC prolonging meds as able-Zofran avoided Hypertension Blood pressure stable at present Continue carvedilol, amlodipine H/O Fibromyalgia Chronic migraine Reports cluster headache Multiple ER visits Received 1 dose of Dihydroergotamine-with no relief On Toradol RPN, Neurontin , Zanaflex PRN Pain management and neurology consulted-management as outlined above Mood/Anxiety disorder Continue Klonopin as needed Continue Cymbalta, Lamictal Ongoing tobacco abuse Counseled to quit smoking Chronic constipation On Linzess DVT Px: Lovenox SQ Code Status Full code Disposition stable to be discharged home today Total Time Total Time Spent Total Time Spent (In Minutes): 50 mins Total Time Includes: Examination of the Patient, Discharge Planning, Medication Reconciliation and Communication With Other Providers Discharge Plan Discharge Items Patient Disposition: Home - Self-Care Reason For Visit: HTN URGENCY Discharge Diagnosis: Intractable migraine headaches/cluster headache Allergic reaction Activity: Resume your previous activity Non-emergency contact: Primary Care Provider Call non-emergency contact if: you have any medication questions Follow-up/Referrals: Noe Willett MD [Primary Care Provider] - 02/10/19 11:45 am Judy Carmona PA-C [Physician Tobacco Prevention Health Educator] - 02/17/19 10:25 am Jovany Valdes [Physician] - 04/15/19 9:45 am Diet: Regular Addtl Attending Provider Instructions: Follow-up with airport operations specialist Dr Ross on 04/15/2019 @ 9: 45 am Pending Studies at Discharge: No Stand-Alone Forms: My [facility] [employer], Work/School Release (Inpt), Smoking Cessation Medications and DC Order Prescriptions: Continued valacyclovir 1 gram tablet 1 g PO HS RF: 0 duloxetine 30 mg capsule,delayed release(DR/EC) 30 mg PO DAILY RF: 0 cyanocobalamin (vitamin B-12) [Vitamin B-12] 1,000 mcg Tablet 1,000 mcg PO QAM RF: 0 acetaminophen [Tylenol Extra Strength] 500 mg Tablet 100 mg PO QID PRN (Reason: Pain) RF: 0 docusate sodium 100 mg Capsule 100 mg PO BID RF: 0 carvedilol 6.25 mg Tablet 6.25 mg PO BID Qty: 60 RF: 0 amlodipine [Norvasc] 5 mg Tablet 5 mg PO QAM Qty: 30 RF: 0 albuterol sulfate 90 mcg/actuation HFA aerosol inhaler 1 puffs INH Q6H PRN (Reason: shortness of breath or wheezing) Qty: 18 RF: 0 Cryselle (28) 0.3-30 mg-mcg tablet 1 tab PO DAILY RF: 0 cetirizine 10 mg tablet 10 mg PO DAILY PRN (Reason: Allergy Symptoms) RF: 0 clonazepam 1 mg Tablet 1 mg PO BID PRN (Reason: Anxiety) RF: 0 duloxetine 60 mg Capsule,Delayed Release(Dr/Ec) 60 mg PO DAILY RF: 0 lamotrigine [Lamictal] 100 mg Tablet 100 mg PO QAM RF: 0 gabapentin 100 mg Capsule 100 mg PO TID PRN (Reason: Migraine Headache) RF: 0 Prilosec OTC 20 mg Tablet,Delayed Release (Dr/Ec) 20 mg PO QAM RF: 0 tizanidine 2 mg capsule 2 mg PO TID PRN (Reason: Muscle Spasm) RF: 0 Linzess 72 mcg capsule 72 mcg PO DAILYBB RF: 0 Hair, Skin, Nails with Biotin 7.5-7.5-1,250 mg-unit-mcg Tablet,Chewable 1 tab PO QAM RF: 0 prednisone 20 mg tablet 60 mg PO DAILY 5 Days Qty: 15 RF: 0 epinephrine 0.3 mg/0.3 mL auto-injector 0.3 mg IM Q3H PRN (Reason: bronchodilation) Qty: 2 RF: 0 Discharge Orders: Discharge Order (Routine); Ordered 02/06/19 Ordered By: Hillary Sheikh/Other Patient Handouts: Headaches Migraines and Cluster Admission Data Admit Date/Time: 02/05/19 00:59 Attending Provider: Hillary Barrios Admit Provider: Adair Early Primary Care Provider: Noe Willett Other Providers: Adair Early ; Laura Victor ; Judy Carmona ; Yan Crystal ; Judy Wells ; Thad Cline
== END 2019-02-06 18:16 | disposition home or self-care (01) ==
LOC: 2N 21:18 → ED 21:18 → SUATTDRO 02-05 00:59 → 2N 02-05 01:24